=== PATIENT | male | born 1950 | race Caucasian/White ===

== ENCOUNTER 2021-12-11 13:24 | Inpatient (IN) | payer OTHER, MEDICAID, SELFPAY ==
[2021-12-11] VITALS (10 sets, daily range): BP systolic 88–123; BP diastolic 49–80; PULSE 86–94; RESP 14–22; TEMP 36.3–36.8; O2SAT 95–100; BMI 34.3
--- NOTE | ~2021-12-11 | XR_ITS ---
EXAMINATION: XR chest 2V Exam Date/Time: 12/11/2021 14:10 CDT HISTORY: dyspnea GARBLED SPEECH WEAKNESS NOTED Comparison: None available. RESULT: Lateral view is limited by degree of inspiration. Lines, tubes, and devices: None. Lungs and pleura: Linear opacities in the left basilar lung. Posterior costophrenic angle blunting. Cardiomediastinal silhouette: Stable. Other: No acute osseous or upper abdominal finding. IMPRESSION: No acute cardiopulmonary process. Small possibly bilateral pleural effusions. Left basilar scar/atele ctasis. Reviewed, dictated and finalized at location K. IMPRESSION: No acute cardiopulmonary process. Small possibly bilateral pleural effusions. L eft basilar scar/atelectasis.
--- NOTE | ~2021-12-11 | CT_ITS ---
EXAMINATION: CTA chest PE protocol DATE: 12/11/2021 17:12 INDICATION: elevated dimer, dyspnea TECHNIQUE: Computed tomography angiography (CTA) of the chest was performed with 100 mL Omnipaque-350 intravenous contrast timed to evaluate the pulmonary arteries. Coronal maximum intensity projection 3D-reconstructions were created by the technologist. The dose-length product (DLP) was 951.47 mGy-cm. Automated exposure control and iterative reconstruction technique were employed. COMPARISON: X-ray chest 12/11/2021. FINDINGS: Lung parenchyma and airways: Minimal bibasilar atelectasis and scarring, greater in the left lower finn ng. Calcified left lower lobe granuloma.. Pleura: Small bilateral pleural fluid collections. Thoracic inlet, axillae and chest wall: Unremarkable. Thoracic aorta: Mild ascending aortic ectasia. Moderate arch calcification. Mediastinum: Normal. Heart and pericardium: Moderate-large volume pericardial fluid collection with peripheral enhancement . The heart is narrowed and somewhat cone shaped, with septal bowing, suggesting physiologic effects from the pericardial fluid and inflammation. Coronary artery calcifications: Heavy. Upper abdomen: Cholelithiasis. Dilated gallbladder.. Bones: No acute osseous finding. Pulmonary arteries: Study quality: Adequate. No pulmonary emboli detected. IMPRESSION: No CT evidence of acute pulmonary embolus. Mild-moderate volume pericardial effusion, with pericardit is and possible tamponade physiology. Small bilateral pleural effusions. Gallbladder hydrops, of doub tful clinical significance unless accompanied by right upper quadrant pain and/or abnormal labs. Results reported telephonically to Dr. Franks by Dr. Rubio at 5:36 PM on 12/11/2021. Reviewed, dictated and finalized at location K. IMPRESSION: No CT evidence of acute pulmonary embolus. Mild-moderate volume pericardial eff usion, with pericarditis and possible tamponade physiology. Small bilateral ple ural effusions. Gallbladder hydrops, of doubtful clinical significance unless a ccompanied by right upper quadrant pain and/or abnormal labs. Results reported telephonically to Dr. Franks by Dr. Rubio at 5:36 PM on 12/11.
--- NOTE | ~2021-12-11 | US_ITS ---
EXAMINATION: US renal BI DATE: 12/13/2021 15:25 INDICATION: Urinary retention. TECHNIQUE: Multiple ultrasound grayscale images of the kidneys were obtained. COMPARISON: Chest CT 12/11/2021 FINDINGS: The right kidney measures 11.5 x 5.3 x 4.5 cm. The left kidney measures 10.4 x 5.4 x 6.0 cm. The kidn eys demonstrate normal parenchymal echogenicity. There is no hydronephrosis. The bladder is decompres sed by a Mora catheter. IMPRESSION: 1. Normal kidneys. No hydronephrosis. Reviewed, dictated and finalized at location A.
--- NOTE | ~2021-12-11 | US_ITS ---
EXAMINATION: US venous doppler [facility] DATE: 12/12/2021 17:07 INDICATION: Chest pain. TECHNIQUE: Grayscale ultrasound images without and with compression and Doppler ultrasound images of the bilateral lower extremity veins were obtained. COMPARISON: None. FINDINGS: The visualized portions of right common femoral vein, profunda (deep) femoral vein, femoral vein, pop liteal vein, peroneal veins, posterior tibial veins, and greater saphenous vein outflow are patent. The visualized portions of left common femoral vein, profunda femoral vein, femoral vein, popliteal v ein, peroneal veins, posterior tibial veins, and greater saphenous vein outflow are patent. IMPRESSION: 1. No deep venous thrombosis. Reviewed, dictated and finalized at location A.
--- NOTE | 2021-12-11 13:28 | ED.SOB ---
HPI - SOB/Dyspnea General Chief Complaint: Recheck/Abnormal Lab/Rx Stated Complaint: Low O2 Time Seen by Provider: 12/11/21 13:28 Source: patient Mode of arrival: ambulatory Limitations: no limitations History of Present Illness HPI Narrative: The patient is a 71 yo male with a history of hypertension, head injury, acid reflux, presenting to the emergency department for evaluation of hypoxia. Patient is currently alert and oriented to person, place, and to time. The alfhome planning consultant salesperson was taking his vital signs and noted his oxygen saturations to be well, 88% on room air, thus the patient was placed on oxygen via nasal cannula and transported here for evaluation of this after the patient's family was notified. Patient currently has no acute complaints. He denies any chest pain, cough or shortness of breath. Denies abdominal pain, leg swelling or calf pain. Patient's vital signs were normal per EMS and he was able to maintain oxygen saturations at 98% on room air. Pt denies any current chest pain or dyspnea. He denies abdominal pain. Per daughter over the phone, states that patient contacted her stating he couldn't breathe this morning and was panicking, thus prompting him to have EMS transport him to this hospital for evaluation. Related Data Allergies Allergy/AdvReac Type Severity Reaction Status Date / Time prednisone Allergy Severe COMA FOR 1 Verified 08/31/16 15:05 YEAR Review of Systems Review of Systems: CONSTITUTIONAL: Denies fever CARDIOVASCULAR: Denies chest pain RESPIRATORY: Denies cough or dyspnea. GASTROINTESTINAL: Denies abdominal pain SKIN: Denies rash MUSCULOSKELETAL: Denies back pain NEUROLOGIC: Denies headache [facility] Family History Family History Father Family history of malignant neoplasm Mother Family history of heart disease in male family member before age 55 Hypertension Family history of cardiovascular disease Social History Social History Smoking status: Never smoker Second hand tobacco smoke exposure: Yes Alcohol intake: never Exam Narrative: GENERAL: Awake, alert, conversant HEAD: Normocephalic, atraumatic. EYES: PERRLA and EOMI. ENT: Nares clear, no rhinorrhea or epistaxis. Mucous membranes moist. NECK: Supple. CHEST: No respiratory distress, breathing even and non labored HEART: Regular rate, sinus rhythm ABDOMEN:Obese, Non distended, non tender EXTREMITIES: Chronic venous stasis changes, normal range of motion. No edema. SKIN: Warm, dry, no rash. NEURO:No focal deficits. Alert and oriented x3 Course Vital Signs Vital signs: Vital Signs Temperature 36.6 C 12/11/21 13:30 Pulse Rate 91 12/11/21 13:30 Respiratory Rate 17 12/11/21 13:30 Blood Pressure 114/67 12/11/21 13:30 Pulse Oximetry 98 12/11/21 13:30 Oxygen Delivery Room Air 12/11/21 13:30 Temperature 36.6 C 12/11/21 13:30 Pulse Rate 94 12/11/21 19:13 Respiratory Rate 14 12/11/21 19:13 Blood Pressure 108/67 12/11/21 19:13 Pulse Oximetry 98 12/11/21 19:13 Oxygen Delivery Room Air 12/11/21 13:30 MDM - SOB/Dyspnea MDM Narrative Medical decision making narrative: Patient presented for evaluation of episode of chest pain and hypoxia that is resolved at the time of assessment. Initial presentation physical exam findings are reassuring. Vital signs are stable. Is not hypoxic, tachycardic, hypotensive. No increased work of breathing. He is quite comfortable appearing. IV access obtained and labs are drawn. EKG without acute ischemic changes. Laboratory results are notable for a elevated troponin, elevated BNP, elevated D-dimer. Patient is mildly anemic with low hematocrit. No thrombocytopenia. No electrolyte derangement or acute kidney injury. CTA was performed which shows evidence of moderate to large pericardial effusion with concern for tampona
--- NOTE | 2021-12-11 13:29 | ECG_ITS ---
Measurements Intervals [place] Rate: 88 P: 52 [place]: 179 QRS: -3 QRSD: 115 T: -48 QT: 392 QTc: 475 Interpretive Statements SINUS RHYTHM LOW QRS VOLTAGE IN PRECORDIAL LEADS INFERIOR INFARCT, AGE INDETERMINATE BORDERLINE ST-T WAVE ABNORMALITY- ANTEROLATERAL LEADS BASELINE ARTIFACT- II, III, AVR, AVL, AVF ABNORMAL ECG NO PREVIOUS ECG AVAILABLE FOR COMPARISON Electronically Signed On 12-11-2021 14:27:03 CDT by Andrea Yanes D.O.
[2021-12-11 14:49] LABS: SARS-CoV-2 RNA PCR Negative
[2021-12-11 15:21] LABS: Anion Gap 13 mmol/L (8-16); Blood Urea Nitrogen 16 mg/dL (9-20); Calcium 8.9 mg/dL (8.4-10.2); Carbon Dioxide 26 mmol/L (22-30); Chloride 101 mmol/L (98-107); Estimated CRCL calculation 78 ml/min; Estimated Glomerular Filt Rate > 60; Glucose 92 mg/dL (65-110); Potassium 3.6 mmol/L (3.4-5.0); Sodium 140 mmol/L (137-145)
[2021-12-11 15:30] LABS: NT Pro B Type Natriuretic Pept 1620 pg/mL (5-100)
[2021-12-11 15:40] LABS: Troponin I 0.052 ng/mL (0.000-0.034)
[2021-12-11 15:53] LABS: D Dimer 6.67 ug/mL (<0.48)
[2021-12-11 16:06] LABS: Platelet Estimate Adequate (Adequate)
[2021-12-11 16:09] LABS: Anisocytosis 3+ (NORMAL)
--- NOTE | 2021-12-11 16:24 | PC.NURSE ---
multiple attempts for IV access without success.
--- NOTE | 2021-12-11 16:46 | PC.NURSE ---
Catherine LEA attempting IV access with ultrasound.
[2021-12-11 17:18] LABS: Troponin I 0.053 ng/mL (0.000-0.034)
[2021-12-11] MEDS: IBUPROFEN 600 MG TABLET PO (19:09)
[2021-12-11] MEDS: COLCHICINE 0.6 MG TABLET PO (19:10)
--- NOTE | 2021-12-11 19:25 | PCCCNOTE ---
Met with spouse at bedside per request of bedside RN. Spouse has paperwork for seeking guardianship, some is filled out and some she has to do but she isn't sure. She is requesting resources to help her, she got the paperwork from the law library but no one provided her with resources of what to do next. Provided spouse with legal/guardianship resource list and she expressed gratitude. Spouse also plans to set up a meeting with the SW at her husbands [facility].
--- NOTE | 2021-12-11 20:52 | PM.IMHP ---
H&P: HPI History of Present Illness Date/Time: 12/11/21 20:52 Chief Complaint: shortness of breath Narrative: This is a 71-year-old male with past medical history significant for coronary artery disease status post stent placement, myocardial infarction, type 2 diabetes mellitus dementia, he resides at a nursing patient was brought to the emergency room after he was found to have a saturation on of 88% on room air. Patient is unable to give any history due to his dementia. states that he has not been the same ever since he had his myocardial infarction and stent placement. History has been obtained from who is at bedside. preliminary workup in the emergency room was significant for CT of the chest was reported as: IMPRESSION: No CT evidence of acute pulmonary embolus. Mild-moderate volume pericardial effusion, with pericarditis and possible tamponade physiology. Small bilateral pleural effusions. Gallbladder hydrops, of doubtful clinical significance unless accompanied by right upper quadrant pain and/or abnormal labs. BNP 1620 troponins x3 [id number] Review of Systems Review of Systems: ROS unobtainable: Yes unobtainable due to mental status [facility] Family History Family History Father Family history of malignant neoplasm Mother Family history of heart disease in male family member before age 55 Hypertension Family history of cardiovascular disease Social History Social History Smoking status: Never smoker Second hand tobacco smoke exposure: Yes Alcohol intake: never Substance use: never Spiritual care concerns: No Meds Home Medications and Allergies Home Medications Medication Instructions Recorded Confirmed Type acetaminophen 325 mg chewable 650 mg PO Q6H PRN Pain, Mild 12/11/21 12/11/21 History tablet apixaban 5 mg (74 tabs) tablets in 5 mg PO BID 12/11/21 12/11/21 History a dose pack (Eliquis DVT-PE Treat 30D Start) aspirin 81 mg chewable tablet 81 mg PO DAILY 12/11/21 12/11/21 History atorvastatin 80 mg tablet 80 mg PO HS 12/11/21 12/11/21 History bupropion HCl 300 mg 24 hr tablet, 300 mg PO QAM 12/11/21 12/11/21 History extended release carvedilol 25 mg tablet 25 mg PO BID 12/11/21 12/11/21 History clopidogrel 75 mg tablet 75 mg PO DAILY 12/11/21 12/11/21 History cyclobenzaprine 5 mg tablet 5 mg PO TID 12/11/21 12/11/21 History diclofenac sodium 1 % topical gel 1 ea topical DAILY 12/11/21 12/11/21 History diflorasone 0.05 % topical cream 1 applic topical DAILY 12/11/21 12/11/21 History furosemide 20 mg tablet 20 mg PO DAILY 12/11/21 12/11/21 History gabapentin 100 mg capsule 100 mg PO Q8H 12/11/21 12/11/21 History insulin glargine 100 unit/mL (3 5 unit subcut HS 12/11/21 12/11/21 History mL) subcutaneous pen losartan 25 mg tablet 25 mg PO DAILY 12/11/21 12/11/21 History oxycodone 5 mg tablet 5 mg PO BID PRN Moderate Pain 12/11/21 12/11/21 History (Scale Score 5-6) pantoprazole 40 mg tablet,delayed 40 mg PO BID 12/11/21 12/11/21 History release polyethylene glycol 3350 17 17 g PO DAILY 12/11/21 12/11/21 History gram/dose oral powder quetiapine 25 mg tablet (Seroquel) 12.5 mg PO BID 12/11/21 12/11/21 History sitagliptin 50 mg tablet (Januvia) 50 mg PO DAILY 12/11/21 12/11/21 History venlafaxine 75 mg tablet 75 mg PO DAILY 12/11/21 12/11/21 History Allergies Allergy/AdvReac Type Severity Reaction Status Date / Time prednisone Allergy Severe COMA FOR 1 Verified 08/31/16 15:05 YEAR Vital Signs Vital Signs - 24 hr 12/11/21 13:30 12/11/21 15:37 12/11/21 15:37 Temperature 97.8 F Pulse Rate 91 92 Respiratory Rate 17 16 16 Blood Pressure 114/67 114/80 Pulse Oximetry 98 98 98 Oxygen Delivery Room Air 12/11/21 16:56 12/11/21 19:13 12/11/21 20:00 Temperature 97.5 F L Pulse Rate 92 94 93 Respiratory Rate 16 14 18 [place]oo
--- NOTE | 2021-12-11 22:31 | ADMGEN ---
This patient, Juan Pablo Almaraz, was admitted to IMU Room 205-01. Patient/family oriented to hospital policies and general routines including ID bracelet, bed and alarms, visiting hours, pain management, procedures, bathroom and other care routines, personal items, smoking policy, room service/diet, and visiting hours. Information on how to activate the Rapid Response Team has been discussed. Patient/Family are encouraged to report perceived risks to care and to ask questions if they do not understand what they are told or what they should do.
[2021-12-12] VITALS (17 sets, daily range): BP systolic 102–129; BP diastolic 53–62; PULSE 79–100; RESP 16–22; TEMP 36.2–36.6; O2SAT 95–100
--- NOTE | 2021-12-12 | ECHO_ITS ---
Patient Info Name: Juan Pablo Almaraz Age: 71 years : 1950 Gender: Male Ht: 69 in Wt: 239 lbs BSA: 2.34 m2 HR: 83 bpm BP: 110 / 58 mmHg Heart Rhythm: Sinus Rhythm Exam Date: 12/12/2021 8:54 AM Exam Location: [facility] Pulmonary Patient Status: Inpatient Admit Date: 12/11/2021 Staff Ordering Physician: Tanya Franks MD Senior Financial: Nicko Cuba, JUNIOR, RT Attending Provider: Dimitri Robertson MD Referring Physician: [facility] ; Exam Type: CA echo dop color flow w con Study Info Indications I30.0 - Acute nonspecific idiopathic pericarditis Complete two-dimensional, color flow and Doppler transthoracic echocardiogram is performed with contrast to opacify the left ventricle and to improve the deliniation of the left ventricle endocardial borders. Summary 1. Left ventricular systolic function is lowr limits of normal, estimated at 50-55%. Technically difficult study with limited views despite definity echo contrast enhancement. Suspicion for mild apical septal hypokinesis. 2. Left ventricular chamber dimension is normal. 3. There is mildly increased left ventricular wall thickness. 4. The left ventricular diastolic function is grade I diastolic dysfunction. 5. Normal inferior vena cava with >50% collapse upon inspiration consistent with normal right atrial pressure, 5 mmHg. 6. There is a small to moderate circumferential pericardial effusion measures 0.9-1.6 cm with fibrinous material within the pericardial space. No echocardiographic evidence for tamponade physiology nor with mitral or tricuspid inflow velocity respiratory variation. Left Ventricle Left ventricular chamber dimension is normal. Left ventricular systolic function is lowr limits of normal, estimated at 50-55%. Technically difficult study with limited views despite definity echo contrast enhancement. Suspicion for mild apical septal hypokinesis. There is mildly increased left ventricular wall thickness. The left ventricular diastolic function is grade I diastolic dysfunction. Right Ventricle Right ventricular chamber dimension is normal. Right ventricular systolic function is normal. Left Atria Left atrial chamber dimension is normal. Right Atria Right atrial chamber dimension is normal. Aortic Valve The aortic valve is not well visualized. There is no aortic valve stenosis. There is no aortic valve regurgitation. Pulmonic Valve The pulmonic valve is not well visualized. Mitral Valve The mitral valve has not well visualized. There is no mitral valve regurgitation. The mitral valve annulus is moderately calcified. Tricuspid Valve The tricuspid valve leaflets are not well visualized. There is trace tricuspid valve regurgitation. No pulmonary hypertension, estimated pulmonary arterial systolic pressure is 24 mmHg. Pericardium/Pleural The pericardium appears normal. There is a small to moderate circumferential pericardial effusion measures 0.9-1.6 cm with fibrinous material within the pericardial space. No echocardiographic evidence for tamponade physiology nor with mitral or tricuspid inflow velocity respiratory variation. Inferior Vena Cava Normal inferior vena cava with >50% collapse upon inspiration consistent with normal right atrial pressure, 5 mmHg. Aorta The aortic root size at the sinus of Valsalva is normal. There is mild aortic atherosclerosis. Left Ventricular Outflow Tract Name
[2021-12-12 02:12] LABS: Troponin I 0.057 ng/mL (0.000-0.034)
[2021-12-12] MEDS: COLCHICINE 0.6 MG TABLET PO (06:46)
[2021-12-12] MEDS: IBUPROFEN 600 MG TABLET PO (06:46)
[2021-12-12] MEDS: GABAPENTIN 100 MG CAPSULE PO ×3 (06:46→20:39)
--- NOTE | 2021-12-12 08:26 | PM.CNCAR ---
History of Present Illness History of Present Illness Consult date/time: 12/12/21 08:26 Requesting physician: Tanya Franks MD Consult reason: chest pain and Other (pericardial effusion) Reason For Visit: pericarditis, peridcardial effusion PMFSH Family History Family History Father Family history of malignant neoplasm Mother Family history of heart disease in male family member before age 55 Hypertension Family history of cardiovascular disease Social History Social History Smoking status: Never smoker Second hand tobacco smoke exposure: Yes Alcohol intake: never Substance use: never Spiritual care concerns: No Meds Home Medications and Allergies Home Medications Medication Instructions Recorded Confirmed Type acetaminophen 325 mg chewable 650 mg PO Q6H PRN Pain, Mild 12/11/21 12/11/21 History tablet apixaban 5 mg (74 tabs) tablets in 5 mg PO BID 12/11/21 12/11/21 History a dose pack ([employer] DVT-PE Treat 30D Start) aspirin 81 mg chewable tablet 81 mg PO DAILY 12/11/21 12/11/21 History atorvastatin 80 mg tablet 80 mg PO HS 12/11/21 12/11/21 History bupropion HCl 300 mg 24 hr tablet, 300 mg PO QAM 12/11/21 12/11/21 History extended release carvedilol 25 mg tablet 25 mg PO BID 12/11/21 12/11/21 History clopidogrel 75 mg tablet 75 mg PO DAILY 12/11/21 12/11/21 History cyclobenzaprine 5 mg tablet 5 mg PO TID 12/11/21 12/11/21 History diclofenac sodium 1 % topical gel 1 ea topical DAILY 12/11/21 12/11/21 History diflorasone 0.05 % topical cream 1 applic topical DAILY 12/11/21 12/11/21 History furosemide 20 mg tablet 20 mg PO DAILY 12/11/21 12/11/21 History gabapentin 100 mg capsule 100 mg PO Q8H 12/11/21 12/11/21 History insulin glargine 100 unit/mL (3 5 unit subcut HS 12/11/21 12/11/21 History mL) subcutaneous pen losartan 25 mg tablet 25 mg PO DAILY 12/11/21 12/11/21 History oxycodone 5 mg tablet 5 mg PO BID PRN Moderate Pain 12/11/21 12/11/21 History (Scale Score 5-6) pantoprazole 40 mg tablet,delayed 40 mg PO BID 12/11/21 12/11/21 History release polyethylene glycol 3350 17 17 g PO DAILY 12/11/21 12/11/21 History gram/dose oral powder quetiapine 25 mg tablet (Seroquel) 12.5 mg PO BID 12/11/21 12/11/21 History sitagliptin 50 mg tablet (Januvia) 50 mg PO DAILY 12/11/21 12/11/21 History venlafaxine 75 mg tablet 75 mg PO DAILY 12/11/21 12/11/21 History Allergies Allergy/AdvReac Type Severity Reaction Status Date / Time prednisone Allergy Severe COMA FOR 1 Verified 08/31/16 15:05 YEAR Vital Signs Vital Signs - 24 hr 12/11/21 13:30 12/11/21 15:37 12/11/21 15:37 Temperature 36.6 C Pulse Rate 91 92 Respiratory Rate 17 16 16 Blood Pressure 114/67 114/80 Pulse Oximetry 98 98 98 Oxygen Delivery Room Air 12/11/21 16:56 12/11/21 19:13 12/11/21 20:00 Temperature 36.4 C L Pulse Rate 92 94 93 Respiratory Rate 16 14 18 Blood Pressure 123/72 108/67 109/58 L Pulse Oximetry 100 98 97 Oxygen Delivery 12/11/21 21:00 12/11/21 22:10 12/11/21 22:20 Temperature 36.8 C 36.3 C L 36.8 C Pulse Rate 90 90 93 Respiratory Rate 16 16 22 H Blood Pressure 101/64 102/68 113/53 L Pulse Oximetry 100 96 96 Oxygen Delivery 12/11/21 23:37 12/11/21 23:54 12/12/21 00:00 Temperature 36.6 C Pulse Rate 86 79 Respiratory Rate 18 Blood Pressure 88/49 L 98/51 L Pulse Oximetry 95 Oxygen Delivery 12/12/21 00:53 12/12/21 02:00 12/12/21 04:00 Temperature Pulse Rate 79 88 82 Respiratory Rate 18 Blood Pressure Pulse Oximetry 95 Oxygen Delivery Room Air 12/12/21 04:00 12/12/21 04:00 12/12/21 06:00 Temperature 36.5 C Pulse Rate 88 83 82 Respiratory Rate 18 16 Blood Pressure 110/58 L Pulse Oximetry 95 97 Oxygen Delivery Room Air 12/12/21 07:53 Temperature 36.2 C L Pulse Rate 84 Respiratory Rate 22 H Blood P
[2021-12-12] MEDS: PERFLUTREN LIPID MICROSPHERES 1.5 ML VIAL DILUTED TO 10 ML TOTAL VOLUME IV PUSH (09:05)
--- NOTE | 2021-12-12 09:05 | IVDEFINITY ---
Prior to administration of IV Definity the patient was educated on the risks and benefits of the imaging enhancing agent including potential adverse side effects. The patient verbalized understanding. Allergies were verified. No exclusion criteria were identified and at least one of the following inclusion criteria were met: 1) physician request, 2) patient technically difficult to image (per the [employer]ocardi[employer] guidelines of two or more segments not discernable within the apical view), or 3) questionable left ventricular function. ?
--- NOTE | 2021-12-12 10:11 | PM.CNCAR ---
Assessment and Plan Assessment and plan (1) Pericardial effusion: Code(s): I31.3 - Pericardial effusion (noninflammatory) Status: Acute Assessment and Plan: Small to moderate circumferential pericardial effusion without tamponade physiology on echocardiogram. This is most likely extension from his complicated coronary intervention from 08/11/2021 where vessel dissection of the RCA was noted. He had been on anticoagulation including dual antiplatelet therapy subsequently but had concerns for upper GI bleed and was discharged from [facility] on DVT dosing enoxaparin. He was then started back on Eliquis 5 mg twice daily as snf facility in addition to aspirin and Plavix for the past month. He denies hemoptysis or other bleeding. His pericardial effusion is not acute and he is hemodynamically stable. Chest pain was atypical described as an indigestion lasting 30 minutes on 1 occasion without recurrence. His EKG or clinical picture highly suggestive of acute pericarditis. Follows heart sounds are quite distant no rubs are appreciated. Sedimentation rate is minimally elevated at 21. Given the fact he has bilateral DVT and at high risk for PE he should remain on systemic anticoagulation for now. Follow-up echocardiogram should be obtained within the next 2 weeks as an outpatient to ensure stability. He apparently has been hemodynamically stable on above therapy but I do not see clinical evidence for pericarditis at this time and given the risk for exacerbation of GI and pericardial bleeding given his history would not recommend continuation of ibuprofen and colchicine in addition to aspirin, clopidogrel, and apixaban. Therefore, will discontinue ibuprofen and colchicine as well as aspirin in deference to clopidogrel and apixaban. Repeat lower extremity venous Doppler. If DVTs have resolved a consider discontinuation of apixaban with DVT prophylaxis regimen. (2) Elevated troponin: Code(s): R77.8 - Other specified abnormalities of plasma proteins Status: Acute Assessment and Plan: Minimally elevated, flat curve not consistent with acute coronary syndrome and/or plaque rupture. No acute ischemic EKG changes. Clinical picture is not consistent with pericarditis at this time so will discontinue 3 Proventil and colchicine and monitor clinically. If recurrent chest pain office therapy further recommendation to follow as appropriate. Difficult balance between risk and benefit with bleeding. Repeat ECG in a.m.. GI prophylaxis with pantoprazole 40 mg p.o. b.i.d. (3) Coronary artery disease: Code(s): I25.10 - Atherosclerotic heart disease of [place] coronary artery without angina pectoris Status: Acute Assessment and Plan: As above Patient underwent 3.0 x 8 mm 3.0 x 12 mm resolute drug-eluting stent and 3.0 x 40 mm drug-eluting stent throughout the RCA 08/11/21. Therefore, he must remain on antiplatelet therapy. Given concomitant systemic anticoagulation would recommend clopidogrel if apixaban will be continued with discontinuation of aspirin at this time. However, his apixaban may be discontinued will continue dual antiplatelet therapy. (4) Essential hypertension: Code(s): I10 - Essential (primary) hypertension Status: Acute Assessment and Plan: BP fairly stable overall. Heart rate controlled. Hold off on Lasix for now. Reduce losartan to 12.5mg daily. (5) DVT (deep venous thrombosis): Code(s): I82.409 - Acute embolism and thrombosis of unspecified deep veins of unspecified lower extremity Status: Acute Assessment and Plan: As above. Repeat lower extremity venous Doppler and if DVT resolved may consider discontinuation of apixaban in favor of DVT prophylaxis. Sister stable wanted to call on the scattered couple weeks as (6) PAD (peripheral artery disease): Code(s): I73.9 - Peripheral vascular disease, unspecified Status: Acute Assess
[2021-12-12 10:58] LABS: Erythrocyte Sedimentation Rate 21 mm/hr (0-20)
--- NOTE | 2021-12-12 10:58 | PM.IMPN ---
Progress Note: A&P Assessment and Plan (1) Effusion, pericardium: Code(s): I31.3 - Pericardial effusion (noninflammatory) Status: Acute Assessment and Plan: admit to IMU started on colchicine and ibuprofen cardiology consulted (2) Dyspnea: Code(s): R06.00 - Dyspnea, unspecified Status: Acute Assessment and Plan: likely secondary to pericardial effusion gentle diuresis (3) Elevated troponin: Code(s): R77.8 - Other specified abnormalities of plasma proteins Status: Acute Assessment and Plan: likely secondary to pericarditis (4) Pericarditis: Code(s): I31.9 - Disease of pericardium, unspecified Status: Acute Assessment and Plan: continue colchicine and ibuprofen (5) Neuropathy: Code(s): G62.9 - Polyneuropathy, unspecified Status: Acute Assessment and Plan: continue home meds (6) Essential hypertension: Code(s): I10 - Essential (primary) hypertension Status: Acute Assessment and Plan: continue home meds (7) Coronary artery disease: Code(s): I25.10 - Atherosclerotic heart disease of [place] coronary artery without angina pectoris Status: Acute Assessment and Plan: continue home meds continue to monitor EKG with no acute changes Subjective Date/time seen: 12/12/21 10:58 no complaints Exam Const: General: comfortable, no acute distress, well developed, alert and awake Nutritional Appearance: average body habitus Orientation/consciousness: oriented to person HENMT: Head: normal to inspection, normocephalic and atraumatic Ears: hearing grossly normal bilaterally Face and sinus: normal facial exam Eyes: General: appearance normal, both eyes and all related structures Pupils: Equal, round and reactive pupils present EOM: EOMs intact bilaterally Neck: Neck: full ROM, no lymphadenopathy and no JVD Thyroid: thyroid normal Lymphatic: no lymphadenopathy noted Resp: Effort & Inspection: normal respiratory effort and able to speak in complete sentences Auscultation: clear to auscultation bilaterally Cardio: Jugular venous distension: no JVD Rate: regular rate Rhythm: regular rhythm Heart sounds: S1 normal heart sound present, S2 normal heart sound present, no gallops, no murmurs, no rubs and Other heart sounds present ( Low tone and intensity) GI: Inspection: normal to inspection : General: Yes deferred Skin: Rashes: no rashes Wounds: no wounds Other: generalized pallor Neuro: General: oriented to person, CN's II-XI intact bilaterally and Unable to assess gait Cranial nerves: Yes CN's II-XII intact bilaterally and Yes Equal, round and reactive pupils present Cognition (Neuro): abnormal cognition ( confused) Speech: normal speech Gait exam (Neuro): Unable to assess gait Motor exam (neuro): 5/5 motor strength present throughout Extrem: General: normal to inspection, full ROM, no joint enlargement and no pedal edema Objective Data Vital Signs Vital Signs: Vital Signs - 24 hr 12/11/21 13:30 12/11/21 15:37 12/11/21 15:37 Temperature 97.8 F Pulse Rate 91 92 Respiratory Rate 17 16 16 Blood Pressure 114/67 114/80 Pulse Oximetry 98 98 98 Oxygen Delivery Room Air 12/11/21 16:56 12/11/21 19:13 12/11/21 20:00 Temperature 97.5 F L Pulse Rate 92 94 93 Respiratory Rate 16 14 18 Blood Pressure 123/72 108/67 109/58 L Pulse Oximetry 100 98 97 Oxygen Delivery 12/11/21 21:00 12/11/21 22:10 12/11/21 22:20 Temperature 98.2 F 97.3 F L 98.2 F Pulse Rate 90 90 93 Respiratory Rate 16 16 22 H Blood Pressure 101/64 102/68 113/53 L Pulse Oximetry 100 96 96 Oxygen Delivery 12/11/21 23:37 12/11/21 23:54 12/12/21 00:00 Temperature 97.8 F Pulse Rate 86 79 Respiratory Rate 18 Blood Pressure 88/49 L 98/51 L Pulse Oximetry 95 Oxygen Delivery 12/12/21 00:53 12/12/21 02:00 12/12/21 04:00 Temperature Pulse Rate 79 88 82
[2021-12-12 11:04] LABS: Thyroid Stimulating Hormone 0.375 uIU/mL (0.465-4.680)
[2021-12-12] MEDS: APIXABAN 5 MG TABLET PO ×2 (13:08→17:49)
[2021-12-12] MEDS: carvediloL 25 MG TABLET PO ×2 (13:09→20:39)
[2021-12-12] MEDS: ASPIRIN 81 MG CHEWABLE TABLET PO (13:09)
[2021-12-12] MEDS: CLOPIDOGREL BISULFATE 75 MG TABLET PO (13:09)
[2021-12-12] MEDS: buPROPion HCL XL (24 HR) 150 MG TABCR 300 MG PO (13:09)
[2021-12-12] MEDS: CYCLOBENZAPRINE HCL 5 MG TABLET PO ×2 (13:10→17:49)
[2021-12-12] MEDS: LOSARTAN POTASSIUM 25 MG TABLET PO (13:10)
[2021-12-12] MEDS: QUEtiapine FUMARATE 12.5 MG TABLET PO ×2 (13:10→17:49)
[2021-12-12] MEDS: PANTOPRAZOLE 40 MG TABLET PO ×2 (13:10→17:49)
[2021-12-12] MEDS: DICLOFENAC SODIUM 1% 100 GM GEL (*BKC) 1 APPLIC TOPICAL (13:10)
[2021-12-12] MEDS: VENLAFAXINE HCL 75 MG TABLET PO (13:11)
[2021-12-12 20:38] LABS: Glucose Point of Care 164 mg/dl (65-105)
[2021-12-12] MEDS: INSULIN GLARGINE (*BKC) 100 UNITS/ML SUB-Q (20:39)
[2021-12-12] MEDS: ATORVASTATIN 40 MG TABLET 80 MG PO (20:39)
[2021-12-13] VITALS (17 sets, daily range): BP systolic 93–126; BP diastolic 53–90; PULSE 80–89; RESP 16–20; TEMP 36.1–36.7; O2SAT 83–100
[2021-12-13] MEDS: GABAPENTIN 100 MG CAPSULE PO ×3 (06:01→21:04)
[2021-12-13] MEDS: QUEtiapine FUMARATE 12.5 MG TABLET PO ×2 (09:22→17:20)
[2021-12-13] MEDS: VENLAFAXINE HCL 75 MG TABLET PO (09:22)
[2021-12-13] MEDS: APIXABAN 5 MG TABLET PO (09:22)
[2021-12-13] MEDS: buPROPion HCL XL (24 HR) 150 MG TABCR 300 MG PO (09:22)
[2021-12-13] MEDS: PANTOPRAZOLE 40 MG TABLET PO ×2 (09:22→17:20)
[2021-12-13] MEDS: LOSARTAN POTASSIUM 25 MG TABLET PO (09:22)
[2021-12-13] MEDS: CLOPIDOGREL BISULFATE 75 MG TABLET PO (09:22)
[2021-12-13] MEDS: carvediloL 25 MG TABLET PO ×2 (09:22→21:04)
[2021-12-13] MEDS: CYCLOBENZAPRINE HCL 5 MG TABLET PO ×3 (09:22→17:20)
[2021-12-13] MEDS: DICLOFENAC SODIUM 1% 100 GM GEL (*BKC) 1 APPLIC TOPICAL (09:23)
[2021-12-13 11:25] LABS: Anion Gap 10 mmol/L (8-16); Blood Urea Nitrogen 11 mg/dL (9-20); Calcium 8.5 mg/dL (8.4-10.2); Carbon Dioxide 28 mmol/L (22-30); Chloride 102 mmol/L (98-107); Estimated CRCL calculation 90 ml/min; Estimated Glomerular Filt Rate > 60; Glucose 112 mg/dL (65-110); Potassium 3.1 mmol/L (3.4-5.0); Sodium 140 mmol/L (137-145)
[2021-12-13] MEDS: oxyCODONE HCL (*CRX) 5 MG TAB IR PO (13:08)
[2021-12-13 13:20] LABS: Hematocrit 32.2 % (42.0-52.0); Hemoglobin 10.2 g/dL (14.0-18.0); Mean Corpuscular HGB Conc 31.7 g/dl (32-36); Mean Corpuscular Volume 85.2 fl (80-100); Platelet Count Result 309 k/mm3 (150-375); Red Blood Count 3.78 M/mm3 (4.6-6.20); Red Cell Distribution Width 16.3 % (11.5-14.5); White Blood Count 9.1 K/mm3 (4.5-10.0)
[2021-12-13 14:06] LABS: Hemoglobin 10.7 g/dL (14.0-18.0); Red Blood Count 4.02 M/mm3 (4.6-6.20); White Blood Count 8.6 K/mm3 (4.5-10.0)
[2021-12-13 14:10] LABS: Hematocrit 35.3 % (42.0-52.0); Mean Corpuscular HGB Conc 30.3 g/dl (32-36); Mean Corpuscular Hemoglobin 26.6 pg (26-34); Mean Corpuscular Volume 87.8 fl (80-100); Neutrophils Percent Auto 66.6 % (45.5-73.1); Nucleated Red Blood Cells Perc 0.3 % (0.0-0.2); Platelet Count Result 298 k/mm3 (150-375); Red Cell Distribution Width 16.2 % (11.5-14.5)
[2021-12-13 14:11] LABS: Basophils Percent Auto 0.3 % (0.2-1.2); Eosinophils Absolute Auto 0.2 K/mm3 (0-0.3); Eosinophils Percent Auto 2.8 % (0-4.4); Immature Granulocyte Absolute 0.09 K/mm3 (0.00-0.031); Lymphocytes Absolute Auto 1.47 K/mm3 (0.9-3.2); Lymphocytes Percent Auto 17.1 % (18.3-44.2); Monocytes Absolute Auto 1.1 K/mm3 (0.1-0.6); Monocytes Percent Auto 12.2 % (2.6-8.5); Neutrophils Absolute Auto 5.7 K/mm3 (1.3-6.7)
--- NOTE | 2021-12-13 15:42 | PM.PNCARD ---
Progress Note: A&P Assessment and Plan (1) Pericardial effusion: Code(s): I31.3 - Pericardial effusion (noninflammatory) Status: Acute Assessment and Plan: Small to moderate circumferential pericardial effusion without tamponade physiology on echocardiogram. This is most likely extension from his complicated coronary intervention from 08/11/2021 where vessel dissection of the RCA was noted. He had been on anticoagulation including dual antiplatelet therapy subsequently but had concerns for upper GI bleed and was discharged from [facility] on DVT dosing enoxaparin. He was then started back on Eliquis 5 mg twice daily as longterm facility in addition to aspirin and Plavix for the past month. He denies hemoptysis or other bleeding. His pericardial effusion is not acute and he is hemodynamically stable. Chest pain was atypical described as an indigestion lasting 30 minutes on 1 occasion without recurrence. His EKG or clinical picture highly suggestive of acute pericarditis. Follows heart sounds are quite distant no rubs are appreciated. Sedimentation rate is minimally elevated at 21. He has been hemodynamically stable on above therapy but I do not see clinical evidence for pericarditis at this time and given the risk for exacerbation of GI and pericardial bleeding given his history would not recommend continuation of ibuprofen and colchicine in addition to aspirin, clopidogrel, and apixaban. Discontinued ibuprofen and colchicine. Repeat lower extremity venous Doppler revealed resolution of bilateral DVTs. May consider discontinuation of apixaban and resume aspirin in conjunction with clopidogrel. Recommend DVT prophylaxis upon discharge such as SCDs are subcutaneous enoxaparin. Defer to hospitalist service in this regard. Will set up for echocardiogram as an outpatient in the next 2 weeks. Stable for discharge from cardiac perspective. (2) Elevated troponin: Code(s): R77.8 - Other specified abnormalities of plasma proteins Status: Acute Assessment and Plan: Minimally elevated, flat curve not consistent with acute coronary syndrome and/or plaque rupture. No acute ischemic EKG changes. Clinical picture is not consistent with pericarditis. GI prophylaxis with pantoprazole 40 mg p.o. b.i.d. (3) Coronary artery disease: Code(s): I25.10 - Atherosclerotic heart disease of [place] coronary artery without angina pectoris Status: Acute Assessment and Plan: As above Patient underwent 3.0 x 8 mm 3.0 x 12 mm resolute drug-eluting stent and 3.0 x 40 mm drug-eluting stent throughout the RCA 08/11/21. Therefore, he must remain on antiplatelet therapy. Given concomitant systemic anticoagulation would recommend clopidogrel if apixaban will be continued with discontinuation of aspirin at this time. However, his apixaban may be discontinued will continue dual antiplatelet therapy. (4) Essential hypertension: Code(s): I10 - Essential (primary) hypertension Status: Acute Assessment and Plan: BP fairly stable overall. Heart rate controlled. Hold off on Lasix for now. Reduce losartan to 12.5mg daily. (5) DVT (deep venous thrombosis): Code(s): I82.409 - Acute embolism and thrombosis of unspecified deep veins of unspecified lower extremity Status: Acute Assessment and Plan: As above. Repeat lower extremity venous Doppler negative for DVT bilaterally. May discontinue apixaban as above. (6) PAD (peripheral artery disease): Code(s): I73.9 - Peripheral vascular disease, unspecified Status: Acute Assessment and Plan: Asymptomatic, but at least moderate peripheral arterial disease below the ankle but unable to perform MICHELE due to DVT bilaterally at that time. (7) Morbid obesity due to excess calories: Code(s): E66.01 - Morbid (severe) obesity due to excess calories Status: Acute Assessment and Plan: lifestyle modification. PT OT.
--- NOTE | 2021-12-13 15:46 | PM.IMPN ---
Subjective Date/time seen: 12/13/21 15:46 Objective Data Vital Signs Vital Signs: Vital Signs - 24 hr 12/12/21 16:00 12/12/21 16:00 12/12/21 18:08 Temperature 97.7 F Pulse Rate 81 85 Respiratory Rate 20 Blood Pressure 107/54 L Pulse Oximetry 97 Oxygen Delivery Room Air 12/12/21 18:00 12/12/21 20:39 12/12/21 20:00 Temperature 97.9 F Pulse Rate 85 85 84 Respiratory Rate 18 Blood Pressure 129/58 L Pulse Oximetry 100 Oxygen Delivery 12/12/21 20:35 12/12/21 20:00 12/12/21 22:00 Temperature Pulse Rate 80 88 Respiratory Rate Blood Pressure Pulse Oximetry Oxygen Delivery Room Air 12/13/21 00:00 12/13/21 00:00 12/13/21 00:00 Temperature 97.6 F Pulse Rate 86 83 Respiratory Rate 16 Blood Pressure 101/53 L Pulse Oximetry 98 Oxygen Delivery Room Air 12/13/21 02:00 12/13/21 04:00 12/13/21 04:00 Temperature Pulse Rate 89 80 Respiratory Rate Blood Pressure Pulse Oximetry Oxygen Delivery Room Air 12/13/21 06:00 12/13/21 04:00 12/13/21 08:00 Temperature 98.0 F Pulse Rate 83 82 82 Respiratory Rate 20 Blood Pressure 97/64 L Pulse Oximetry 98 Oxygen Delivery 12/13/21 08:10 12/13/21 08:00 12/13/21 09:00 Temperature 97.5 F L 97 F L Pulse Rate 83 81 Respiratory Rate 20 20 Blood Pressure 106/64 126/90 Pulse Oximetry 96 83 L Oxygen Delivery Room Air 12/13/21 10:00 12/13/21 11:39 12/13/21 12:00 Temperature 97.1 F L Pulse Rate 83 87 Respiratory Rate 20 Blood Pressure 96/68 L Pulse Oximetry 97 Oxygen Delivery Room Air 12/13/21 12:00 12/13/21 14:00 Temperature Pulse Rate 87 85 Respiratory Rate Blood Pressure Pulse Oximetry Oxygen Delivery Intake/Output Intake/Output: Intake & Output 12/10/21 12/11/21 12/12/21 12/13/21 23:59 23:59 23:59 23:59 Intake Total 1110 480 Output Total 100 350 Balance 1010 130 Meds/Results Medications: Active Medications Generic Name Dose Route Start Last Admin Trade Name Freq PRN Reason Stop Dose Admin Acetaminophen 650 mg 12/12/21 02:36 Acetaminophen 325 Mg Tablet PO Q6H PRN Pain Rated 1-3 Aspirin 81 mg 12/14/21 09:00 Aspirin 81 Mg Enteric Tablet PO QAM [facility] Atorvastatin Calcium 80 mg 12/12/21 21:00 12/12/21 20:39 Atorvastatin 40 Mg Tablet PO 80 mg HS MYA Administration Bupropion HCl 300 mg 12/12/21 09:00 12/13/21 09:22 Bupropion Hcl Xl (24 Hr) 150 Mg Tabcr PO 300 mg QAM [facility] Administration Carvedilol 25 mg 12/12/21 09:00 12/13/21 09:22 Carvedilol 25 Mg Tablet PO 25 mg Q12HR MYA Administration Clopidogrel Bisulfate 75 mg 12/12/21 09:00 12/13/21 09:22 Clopidogrel Bisulfate 75 Mg Tablet PO 75 mg DAILY MYA Administration Cyclobenzaprine HCl 5 mg 12/12/21 09:00 12/13/21 13:08 Cyclobenzaprine Hcl 5 Mg Tablet PO 5 mg TID [facility] Administration Diclofenac Sodium 1 applic 12/12/21 09:00 12/13/21 09:23 Diclofenac Sodium 1% 100 Gm Gel (*Bkc) TOPICAL 1 applic DAILY [facility] Administration Gabapentin 100 mg 12/12/21 06:00 12/13/21 13:08 Gabapentin 100 Mg Capsule PO 100 mg Q8H MYA Administration Insulin Glargine 5 units 12/12/21 21:00 12/12/21 20:39 Insulin Glargine (*Bkc) 100 Units/Ml SUB-Q 5 units HS [facility] Administration Losartan Potassium 25 mg 12/12/21 09:00 12/13/21 09:22 Losartan Potassium 25 Mg Tablet PO 25 mg DAILY MYA Administration Ondansetron HCl 4 mg 12/11/21 19:13 Ondansetron Inj 4 Mg/2 Ml Vial IV PUSH Q4H PRN Nausea Oxycodone HCl 5 mg 12/12/21 02:36 12/13/21 13:08 Oxycodone Hcl (*Crx) 5 Mg Tab Ir PO 5 mg BID PRN Administration Pain Rated 4-6 Pantoprazole Sodium 40 mg 12/12/21 09:00 12/13/21 09:22 Pantoprazole 40 Mg Tablet PO 40 mg BID MYA Administration Polyethylene Glycol 17 gm 12/12/21 09:00 12/13/21 09:24 Polyethylene Glycol 3350 17 Gm Powd.Pack
--- NOTE | 2021-12-13 15:56 | PM.DS ---
DS: Summary Time Spent with Patient Time attestation: Total time spent providing and/or coordinating discharge services: DS: Data Data Completed and Pending Labs on day of discharge: Labs from last 24 hours 12/13/21 12/13/21 12/12/21 11:10 10:50 20:35 WBC 9.1 RBC 3.78 L Hgb 10.2 L Hct 32.2 L MCV 85.2 MCH 27.0 MCHC 31.7 L RDW 16.3 H Plt Count 309 MPV 10.0 Immature Gran % (Auto) Neut % (Auto) Lymph % (Auto) [place] % (Auto) Eos % (Auto) Baso % (Auto) Lymph # (Auto) [place] # (Auto) Eos # (Auto) Baso # (Auto) Abs Immat Gran (auto) Absolute Neuts (auto) Absolute Nucleated RBC Nucleated RBC % Platelet Estimate Anisocytosis Sodium 140 Potassium 3.1 L Chloride 102 Carbon Dioxide 28 Anion Gap 10 BUN 11 D Creatinine 0.80 Estim Creat Clear Calc 90 Estimated GFR > 60 Glucose 112 H POC Capillary Glucose 164 H Calcium 8.5 12/11/21 14:56 WBC 8.6 RBC 4.02 L Hgb 10.7 L Hct 35.3 L MCV 87.8 MCH 26.6 MCHC 30.3 L RDW 16.2 H Plt Count 298 MPV 10.0 Immature Gran % (Auto) 1.0 H Neut % (Auto) 66.6 Lymph % (Auto) 17.1 L [place] % (Auto) 12.2 H Eos % (Auto) 2.8 Baso % (Auto) 0.3 Lymph # (Auto) 1.47 [place] # (Auto) 1.1 H Eos # (Auto) 0.2 Baso # (Auto) 0.0 Abs Immat Gran (auto) 0.09 H Absolute Neuts (auto) 5.7 Absolute Nucleated RBC 0.0 Nucleated RBC % 0.3 H Platelet Estimate Adequate Anisocytosis 3+ Sodium Potassium Chloride Carbon Dioxide Anion Gap BUN Creatinine Estim Creat Clear Calc Estimated GFR Glucose POC Capillary Glucose Calcium Discharge Plan Discharge Attending physician on discharge: Clay Lerner Consulting providers: Faye Downs Discharging Clinician: Clay Lerner Patient Disposition: NH Half-Way/Asst Living Activity: as tolerated Diet: heart healthy Discharge Instructions: patient to follow-up with his primary care provider as soon as possible Patient Instructions: Antibiotic Form, Clopidogrel (By mouth), Apixaban (By mouth), Pericardial Effusion (DC), Dyspnea (DC), Safe Use of Anticoagulants (DC) Stand Alone Forms: General Discharge Information Follow-up/Referrals: Radha,Melania Ham MD [Primary Care Provider] - [facility] - Discharge Medications: New oxycodone 5 mg Tablet 5 mg PO BID PRN (Reason: Pain Rated 4-6) Qty: 12 0RF Continued atorvastatin 80 mg Tablet 80 mg PO HS carvedilol 25 mg Tablet 25 mg PO BID Rx Instructions: must administer with a meal/food clopidogrel 75 mg Tablet 75 mg PO DAILY aspirin [Aspirin Child] 81 mg Tablet,Chewable 81 mg PO DAILY cyclobenzaprine 5 mg Tablet 5 mg PO TID bupropion HCl 300 mg Tablet Extended Release 24 Hr 300 mg PO QAM acetaminophen 325 mg Tablet,Chewable 650 mg PO Q6H PRN (Reason: Pain, Mild) pantoprazole 40 mg Tablet,Delayed Release (Dr/Ec) 40 mg PO BID losartan 25 mg Tablet 25 mg PO DAILY polyethylene glycol 3350 17 gram/dose Powder 17 g PO DAILY insulin glargine 100 unit/mL (3 mL) Insulin Pen 5 unit SUBCUT HS venlafaxine 75 mg Tablet 75 mg PO DAILY quetiapine [Seroquel] 25 mg Tablet 12.5 mg PO BID diflorasone 0.05 % Cream 1 applic TOPICAL DAILY gabapentin 100 mg Capsule 100 mg PO Q8H oxycodone 5 mg Tablet 5 mg PO BID PRN (Reason: Moderate Pain (Scale Score 5-6)) Januvia 50 mg Tablet 50 mg PO DAILY diclofenac sodium 1 % Gel 1 ea TOPICAL DAILY Held furosemide 20 mg Tablet 20 mg PO DAILY Hold Instructions: until seen by his [facility] Ebony DVT-PE Treat 30D Start 5 mg (74 tabs) Tablets,Dose Pack 5 mg PO BID Hold Instructions: until seen by his [facility] Date of admission: 12/11/21 19:13 Primary Care Provider: Radha,Melania Ham Adm
--- NOTE | 2021-12-13 17:47 | PC.NURSE ---
On 12/13/21, the student, [Debbie [facility]EVES [facility] ], provided care and completed [employer] documentation on this patient. I have reviewed the student's documentation and agree with the findings.
[2021-12-13 19:13] LABS: EDCOVIDSCREEN Negative (Negative)
[2021-12-13] MEDS: ATORVASTATIN 40 MG TABLET 80 MG PO (21:04)
--- NOTE | 2021-12-13 22:13 | PC.NURSE ---
Notified pt's , Rachna, that pt is going to be transferred to room 342.
[2021-12-13] MEDS: INSULIN GLARGINE (*BKC) 100 UNITS/ML SUB-Q (22:23)
[2021-12-13 22:27] LABS: Glucose Point of Care 134 mg/dl (65-105)
--- NOTE | 2021-12-13 22:33 | PC.NURSE ---
Report called to LEONORA Oliva on .
--- NOTE | 2021-12-13 23:03 | PC.NURSE ---
This patient, Juan Pablo Almaraz, was transferred to [room 342 ] on 12/13/21 at 2245. Personal belongings sent with patient. Report given to [LEONORA Oliva ]. Appropriate documentation sent with patient.
[2021-12-14 00:23] VITALS: BP 97/55; PULSE 81; RESP 20; TEMP 36.6; O2SAT 94
[2021-12-14 04:36] VITALS: BP 113/59; PULSE 88; RESP 16; TEMP 36.4; O2SAT 96
[2021-12-14] MEDS: SODIUM CHLORIDE 0.9% IV 250 ML IV CONT (05:26)
[2021-12-14] MEDS: GABAPENTIN 100 MG CAPSULE PO (05:27)
[2021-12-14 05:53] LABS: Anion Gap 9 mmol/L (8-16); Blood Urea Nitrogen 14 mg/dL (9-20); Calcium 8.6 mg/dL (8.4-10.2); Carbon Dioxide 28 mmol/L (22-30); Chloride 102 mmol/L (98-107); Estimated CRCL calculation 63 ml/min; Estimated Glomerular Filt Rate > 60; Glucose 94 mg/dL (65-110); Sodium 139 mmol/L (137-145)
[2021-12-14] MEDS: CYCLOBENZAPRINE HCL 5 MG TABLET PO (09:13)
[2021-12-14] MEDS: CLOPIDOGREL BISULFATE 75 MG TABLET PO (09:13)
[2021-12-14] MEDS: LOSARTAN POTASSIUM 25 MG TABLET PO (09:13)
[2021-12-14] MEDS: QUEtiapine FUMARATE 12.5 MG TABLET PO (09:13)
[2021-12-14 09:15] VITALS: PULSE 72
[2021-12-14] MEDS: carvediloL 25 MG TABLET PO (09:15)
[2021-12-14] MEDS: buPROPion HCL XL (24 HR) 150 MG TABCR 300 MG PO (09:15)
[2021-12-14] MEDS: DICLOFENAC SODIUM 1% 100 GM GEL (*BKC) 1 APPLIC TOPICAL (09:15)
[2021-12-14] MEDS: ENOXAPARIN 40 MG/0.4 ML SYRINGE SUB-Q (09:18)
[2021-12-14] MEDS: ASPIRIN 81 MG ENTERIC TABLET PO (09:18)
[2021-12-14] MEDS: polyethylene glycoL 3350 17 GM POWD.PACK PO (09:18)
[2021-12-14] MEDS: VENLAFAXINE HCL 75 MG TABLET PO (09:18)
[2021-12-14] MEDS: PANTOPRAZOLE 40 MG TABLET PO (09:18)
[2021-12-14 09:22] LABS: Hemoglobin 10.6 g/dL (14.0-18.0)
[2021-12-14 09:23] LABS: Hematocrit 35.2 % (42.0-52.0)
[2021-12-14 09:40] LABS: Hematocrit 29.9 % (42.0-52.0); Hemoglobin 9.3 g/dL (14.0-18.0); Mean Corpuscular HGB Conc 31.1 g/dl (32-36); Mean Corpuscular Hemoglobin 26.6 pg (26-34); Mean Corpuscular Volume 85.7 fl (80-100); Mean Platelet Volume 9.8 fl (7.4-10.4); Platelet Count Result 273 k/mm3 (150-375); Red Blood Count 3.49 M/mm3 (4.6-6.20); Red Cell Distribution Width 16.4 % (11.5-14.5); White Blood Count 8.4 K/mm3 (4.5-10.0)
[2021-12-14] MEDS: POTASSIUM CHLORIDE 20 MEQ TABLET 40 MEQ PO (09:48)
--- NOTE | 2021-12-14 12:20 | PM.IMPN ---
Progress Note: A&P Assessment and Plan (1) Effusion, pericardium: Code(s): I31.3 - Pericardial effusion (noninflammatory) Status: Acute Assessment and Plan: HPI-This is a 71-year-old male with past medical history significant for coronary artery disease status post stent placement, myocardial infarction, type 2 diabetes mellitus dementia, he resides at a nursing patient was brought to the emergency room after he was found to have a saturation on of 88% on room air. Patient is unable to give any history due to his dementia.? states that he has not been the same ever since he had his myocardial infarction and stent placement. History has been obtained from who is at bedside. preliminary workup in the emergency room was significant for CT of the chest was reported as:No CT evidence of acute pulmonary embolus. Mild-moderate volume pericardial effusion, with pericarditis and possible tamponade physiology. Small bilateral pleural effusions. Gallbladder hydrops, of doubtful clinical significance unless accompanied by right upper quadrant pain and/or abnormal labs. Patient was seen by ostrich farmer after reviewing his echo, previous history and examination came to conclusion that patient symptoms are stemming from pericarditis and does not need any treatment with ibuprofen and colchicine? with increased risk of bleeding, repeat lower extremities Dopplor did not show any DVT, patient remains clinically stable. (2) Dyspnea: Code(s): R06.00 - Dyspnea, unspecified Status: Acute Assessment and Plan: likely secondary to pericardial effusion ?gentle diuresis (3) Elevated troponin: Code(s): R77.8 - Other specified abnormalities of plasma proteins Status: Acute Assessment and Plan: Most likely demand ischemia due to pericarditis (4) Pericarditis: Code(s): I31.9 - Disease of pericardium, unspecified Status: Acute Assessment and Plan: had been treated with colchicine and ibuprofen (5) Neuropathy: Code(s): G62.9 - Polyneuropathy, unspecified Status: Acute (6) Essential hypertension: Code(s): I10 - Essential (primary) hypertension Status: Acute Assessment and Plan: will continue home regimen and monitor (7) Coronary artery disease: Code(s): I25.10 - Atherosclerotic heart disease of [place] coronary artery without angina pectoris Status: Acute Subjective Date/time seen: 12/13/21 12:20 HPI-This is a 71-year-old male with past medical history significant for coronary artery disease status post stent placement, myocardial infarction, type 2 diabetes mellitus dementia, he resides at a nursing patient was brought to the emergency room after he was found to have a saturation on of 88% on room air. Patient is unable to give any history due to his dementia.? states that he has not been the same ever since he had his myocardial infarction and stent placement. History has been obtained from who is at bedside. preliminary workup in the emergency room was significant for CT of the chest was reported as:No CT evidence of acute pulmonary embolus. Mild-moderate volume pericardial effusion, with pericarditis and possible tamponade physiology. Small bilateral pleural effusions. Gallbladder hydrops, of doubtful clinical significance unless accompanied by right upper quadrant pain and/or abnormal labs. Patient was seen by ostrich farmer after reviewing his echo, previous history and examination came to conclusion that patient symptoms are stemming from pericarditis and does not need any treatment with ibuprofen and cholchin with increaed risk of bleeding, repeat lower extremities Dopplor did not show any DVT, patient remains clinically stable. Review of Systems Review of Systems: Patient denies bleeding, falls, trauma, headache, vision changes, hemoptysis, bright red blood per rectum, melena, edema, nausea, vomiting, rashes or hair skin or na
[2021-12-14 13:34] LABS: EDCOVIDSCREEN Negative (Negative)
--- NOTE | 2021-12-30 17:24 | PM.DS ---
DS: Admitting Diagnosis Discharge Date 12/14/21 Admitting Diagnosis Shortness of breath DS: Discharge Diagnosis Discharge Diagnosis (1) Effusion, pericardium: Code(s): I31.3 - Pericardial effusion (noninflammatory) Status: Acute Assessment and Plan: HPI-This is a 71-year-old male with past medical history significant for coronary artery disease status post stent placement, myocardial infarction, type 2 diabetes mellitus dementia, he resides at a nursing patient was brought to the emergency room after he was found to have a saturation on of 88% on room air. Patient is unable to give any history due to his dementia.? states that he has not been the same ever since he had his myocardial infarction and stent placement. History has been obtained from who is at bedside. preliminary workup in the emergency room was significant for CT of the chest was reported as:No CT evidence of acute pulmonary embolus. Mild-moderate volume pericardial effusion, with pericarditis and possible tamponade physiology. Small bilateral pleural effusions. Gallbladder hydrops, of doubtful clinical significance unless accompanied by right upper quadrant pain and/or abnormal labs. Patient was seen by medical massage therapist after reviewing his echo, previous history and examination came to conclusion that patient symptoms are stemming from pericarditis and does not need any treatment with ibuprofen and colchicine? with increased risk of bleeding, repeat lower extremities Dopplor did not show any DVT, patient remains clinically stable. (2) Dyspnea: Code(s): R06.00 - Dyspnea, unspecified Status: Acute Assessment and Plan: likely secondary to pericardial effusion ?gentle diuresis (3) Elevated troponin: Code(s): R77.8 - Other specified abnormalities of plasma proteins Status: Acute Assessment and Plan: Most likely demand ischemia due to pericarditis (4) Pericarditis: Code(s): I31.9 - Disease of pericardium, unspecified Status: Acute Assessment and Plan: had been treated with colchicine and ibuprofen (5) Neuropathy: Code(s): G62.9 - Polyneuropathy, unspecified Status: Acute (6) Essential hypertension: Code(s): I10 - Essential (primary) hypertension Status: Acute Assessment and Plan: will continue home regimen and monitor (7) Coronary artery disease: Code(s): I25.10 - Atherosclerotic heart disease of [place] coronary artery without angina pectoris Status: Acute DS: Summary Hospital Course Reason for hospitalization: This is a 71-year-old male with past medical history significant for coronary artery disease status post stent placement, myocardial infarction, type 2 diabetes mellitus dementia, he resides at a nursing patient was brought to the emergency room after he was found to have a saturation on of 88% on room air. Patient is unable to give any history due to his dementia.? states that he has not been the same ever since he had his myocardial infarction and stent placement. History has been obtained from who is at bedside. preliminary workup in the emergency room was significant for CT of the chest was reported as: IMPRESSION: No CT evidence of acute pulmonary embolus. Mild-moderate volume pericardial effusion, with pericarditis and possible tamponade physiology. Small bilateral pleural effusions. Gallbladder hydrops, of doubtful clinical significance unless accompanied by right upper quadrant pain and/or abnormal labs. Hospital Course: HPI-This is a 71-year-old male with past medical history significant for coronary artery disease status post stent placement, myocardial infarction, type 2 diabetes mellitus dementia, he resides at a nursing patient was brought to the emergency room after he was found to have a saturation on of 88% on room air. Patient is unable to give any history due to his dementia.? states that he has not been the same
== END 2021-12-14 14:24 | DRG 316 ==
LOC: ANHED 19:19 → ANHIMU 22:34 → ANH3MED 12-13 23:05
PROVIDERS: Nurse Practitioner; Admitting Provider Internal Medicine; Emergency Provider Emergency Medicine; PCP Internal Medicine; Visit Provider Family Medicine
DX: I30.9 Acute pericarditis, unspecified (principal); I25.10 Atherosclerotic heart disease of native coronary artery without angina pectoris; I10 Essential (primary) hypertension; I73.9 Peripheral vascular disease, unspecified; E11.42 Type 2 diabetes mellitus with diabetic polyneuropathy; E66.01 Morbid (severe) obesity due to excess calories; R77.8 Other specified abnormalities of plasma proteins; F03.90 Unspecified dementia, unspecified severity, without behavioral disturbance, psychotic disturbance, mood disturbance, and anxiety; Z20.822 Contact with and (suspected) exposure to COVID-19; Z79.01 Long term (current) use of anticoagulants; Z79.4 Long term (current) use of insulin; Z95.5 Presence of coronary angioplasty implant and graft; Z86.718 Personal history of other venous thrombosis and embolism; I25.2 Old myocardial infarction
CPT/HCPCS: 36415; 71046; 71275; 76775; 80048; 82948; 83880; 84443; 84484; 85014; 85018; 85025; 85027; 85380; 85652; 87426; 93005; 93970; 99285; A9270; C8929; C9803; J1650; J1815; J7040; Q9957; Q9967; U0003; U0005

== ENCOUNTER 2021-12-29 16:19 | Inpatient (IN) | payer OTHER, MEDICAID, SELFPAY ==
[2021-12-29] VITALS (30 sets, daily range): BP systolic 79–129; BP diastolic 50–81; PULSE 93–110; RESP 17–30; TEMP 36.2–37.6; O2SAT 95–98
--- NOTE | ~2021-12-29 | CT_ITS ---
EXAMINATION: CT abdomen pelvis wo con DATE: 12/29/2021 20:31 INDICATION: Leukocytosis. Urinary tract infection. TECHNIQUE: Computed tomography (CT) of the abdomen and pelvis was performed without intravenous contr ast. Automated exposure control and iterative reconstruction technique were employed. The dose-length product was 1654.73 mGy-cm. COMPARISON: Chest CT 12/11/2021 FINDINGS: The visualized portions of the lung bases demonstrate mild atelectasis. Calcified left lung nodules and calcified left hilar lymph nodes are consistent with old granulomatous disease. There ar e small pleural effusions. The heart size is normal. There are coronary artery calcifications. There is a small pericardial effusion. The liver is normal. The gallbladder is distended with pericholecyst ic fat stranding. Calcifications in the spleen are consistent with old granulomatous disease. The mills creas, adrenal glands are normal. There is a 6 mm hemorrhagic cyst in right kidney. Left kidney is no rmal. There are stones in the bladder. The prostate is mildly enlarged. Stool distends the rectum. Th e appendix is not visualized. There are no pathologically enlarged lymph nodes. There are bilateral i nguinal hernias containing fat. There is trace ascites. There is severe thoracic and lumbar spondylos is. IMPRESSION: 1. Acute cholecystitis. 2. Bladder stones. 3. Small pleural effusions. 4. Small pericardial effusion with improvement from 12/11/2021. Reviewed, dictated and finalized at location A.
--- NOTE | ~2021-12-29 | CT_ITS ---
EXAMINATION: CT abdomen pelvis wo con DATE: 01/01/2022 13:46 INDICATION: Anemia. Right upper quadrant abdominal discomfort. TECHNIQUE: Computed tomography (CT) of the abdomen and pelvis was performed without intravenous contr ast. Automated exposure control and iterative reconstruction technique were employed. The dose-length product was 1546.18 mGy-cm. COMPARISON: CT abdomen and pelvis 12/29/2021 FINDINGS: The visualized portions of the lung bases demonstrate small pleural effusions and dependent atelectasis. Calcified left lung nodules and calcified left hilar lymph nodes are consistent with ol d granulomatous disease. The heart size is normal. There are coronary artery calcifications. There is a small pericardial effusion. The nasogastric tube tip is in the stomach. The gallbladder is distend ed. There is a percutaneous cholecystostomy tube in expected position. There is fat stranding around the gallbladder. The liver is normal. Calcifications in the spleen are consistent with old granulomat ous disease. The pancreas, adrenal glands, and kidneys are normal. There are 2 stones in the bladder with the larger measuring 21 mm. The bladder is decompressed by a Mora catheter. There are no dilate d loops of bowel. The appendix is not visualized. There is a small volume of ascites. There are no pa thologically enlarged lymph nodes. There are bilateral inguinal hernias containing fat. There is soila re thoracic and lumbar spondylosis. There is mild chronic anterior wedging of multiple vertebral bodi es. There is lumbar levoscoliosis. IMPRESSION: 1. Acute cholecystitis with persistent gallbladder distension with percutaneous cholecystostomy tube in expected position. Given that the tube drains by gravity, I recommend turning the patient toward h is right to allow bile to more easily flow into the drainage bag. 2. Small volume of ascites, worsened from 12/29/2021. 3. Small pleural effusions, worsened from 12/29/2021. 4. Stable small pericardial effusion. 5. Bladder stones. Reviewed, dictated and finalized at location B. IMPRESSION: 1. Acute cholecystitis with persistent gallbladder distension with percutaneous cholecystostomy tube in expected position. Given that the tube drains by gravi ty, I recommend turning the patient toward his right to allow bile to more easi ly flow into the drainage bag. 2. Small volume of ascites, worsened from 12/29/2021. 3. Small pleural effusions, worsened from 12/29/2021. 4. Stable small pericardial effusion. 5. Bladder stones.
--- NOTE | ~2021-12-29 | XR_ITS ---
EXAMINATION: XR abdomen NG/feed tube insert DATE: 12/30/2021 07:55 INDICATION: Nasogastric tube placement. TECHNIQUE: A semierect view of the abdomen was obtained. COMPARISON: None. FINDINGS: The lower abdomen is excluded. The nasogastric tube tip is in the stomach. A right internal jugular central venous catheter is seen with tip in the right atrium. IMPRESSION: 1. Nasogastric tube tip in the stomach. 2. Central line tip in right atrium. Reviewed, dictated and finalized at location A.
--- NOTE | ~2021-12-29 | US_ITS ---
EXAMINATION: US venous doppler [facility] DATE: 12/31/2021 10:56 INDICATION: Deep venous thrombosis TECHNIQUE: Grayscale ultrasound images without and with compression and Doppler ultrasound images of the bilateral lower extremity veins were obtained. COMPARISON: 12/12/2021 FINDINGS: The visualized portions of right common femoral vein, profunda (deep) femoral vein, femoral vein, pop liteal vein, posterior tibial veins and greater saphenous vein outflow are patent. The visualized portions of left common femoral vein, profunda femoral vein, femoral vein, popliteal v ein, posterior tibial veins and greater saphenous vein outflow are patent. IMPRESSION: 1. No deep venous thrombosis in either lower limb. Reviewed, dictated and finalized at location A.
--- NOTE | ~2021-12-29 | XR_ITS ---
EXAMINATION: XR chest port-a-cath/central DATE: 12/30/2021 07:55 INDICATION: Central line placement. TECHNIQUE: A single frontal view of the chest was obtained. COMPARISON: Chest single view 12/29/2021, CT abdomen and pelvis 12/29/2021 FINDINGS: There are airspace opacities at the lung bases. A calcified left lung nodule and calcified left hilar lymph nodes are consistent with old granulomatous disease. No pleural effusion or pneumoth orax. The heart size is normal. The nasogastric tube tip is in the stomach. A right internal jugular central venous catheter is seen with tip in the right atrium. IMPRESSION: 1. Central line tip in the right atrium. 2. Stable airspace opacities at the lung bases, likely atelectasis. Reviewed, dictated and finalized at location A.
--- NOTE | ~2021-12-29 | US_ITS ---
EXAMINATION: US abdomen limited DATE: 01/02/2022 13:08 INDICATION: Acute cholecystitis. TECHNIQUE: Multiple grayscale and Doppler ultrasound images of the abdomen were obtained. COMPARISON: CT abdomen and pelvis 01/01/2022, ultrasound 12/30/2021 FINDINGS: The gallbladder is distended and filled with hyperechoic material. The percutaneous cholecy stostomy tube is in expected position. I flushed the tube earlier today with difficulty and aspirated atif blood. IMPRESSION: 1. Distended gallbladder filled with blood with cholecystostomy tube in expected position. The blood is likely too coagulated for tube drainage. I discussed this result with Dr. Carter. Reviewed, dictated and finalized at location B. IMPRESSION: 1. Distended gallbladder filled with blood with cholecystostomy tube in expecte d position. The blood is likely too coagulated for tube drainage. I discussed t his result with Dr. Carter.
--- NOTE | ~2021-12-29 | US_ITS ---
EXAMINATION: US perc cholecystostomy w imag DATE: 12/30/2021 11:08 INDICATION: Acute cholecystitis. TECHNIQUE: The procedure including the risks, benefits, and alternatives was discussed with the patie nt's by phone. Risks discussed included bleeding including hemorrhage, infection, and bile perit onitis. Oral consent was obtained. The skin overlying the gallbladder was prepped and draped in usual sterile fashion. Anesthetic was administered with 1% lidocaine subcutaneously. An 8.5 Fr catheter was inserted into the gallbladder by trocar technique. The metal stiffener and trocar needle were rem dena, and the pigtail tip was locked. Bile was aspirated and sent for culture. The catheter was stitc hed to the skin with suture. There were no immediate complications. FINDINGS: Ultrasound images demonstrate the catheter within the gallbladder. 7 mL bile was aspirated. IMPRESSION: 1. Successful ultrasound-guided cholecystostomy tube placement. 2. 7 mL black bile was sent for aerobic and anaerobic cultures. 3. The catheter will be managed by Dr. Cornelius. A catheter cholangiogram may be performed not less than 48 hours after tube placement if clinically indicated to assess cystic duct patency. If cholecystect matthew is not eventually performed and the infectious episode has resolved, the tube may be removed over a guidewire, preferably not less than 3 weeks after placement to allow time for a mature catheter tr act to form to prevent bile leakage and peritonitis. Reviewed, dictated and finalized at location A. IMPRESSION: 1. Successful ultrasound-guided cholecystostomy tube placement. 2. 7 mL black bile was sent for aerobic and anaerobic cultures. 3. The catheter will be managed by Dr. Cornelius. A catheter cholangiogram may be p erformed not less than 48 hours after tube placement if clinically indicated to assess cystic duct patency. If cholecystectomy is not eventually performed and the infectious episode has resolved, the tube may be removed over a guidewire, preferably not less than 3 weeks after placement to allow time for a mature ca theter tract to form to prevent bile leakage and peritonitis.
--- NOTE | ~2021-12-29 | CT_ITS ---
EXAMINATION: CT brain wo con DATE: 12/29/2021 19:53 INDICATION: Altered mental status. TECHNIQUE: Computed tomography (CT) of the head was performed without intravenous contrast. The mA wa s adjusted according to patient size. Iterative reconstruction technique was employed. The dose-lengt h product was 983.67 mGy-cm. COMPARISON: Head CT 11/23/2011 FINDINGS: There are scattered areas of low attenuation in the cerebral white matter. There is no intr acranial hemorrhage, acute infarction, or abnormal intracranial mass lesion. The ventricles are dominga l in size. The orbits are normal. There is mild mucosal thickening in the paranasal sinuses. There ar e trace bilateral mastoid effusions. IMPRESSION: 1. Mild nonspecific cerebral white matter disease, which likely represents chronic small vessel ische dian disease, worsened from 11/23/2011. Reviewed, dictated and finalized at location A. IMPRESSION: 1. 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
--- NOTE | ~2021-12-29 | XR_ITS ---
EXAMINATION: XR chest 1V portable DATE: 12/29/2021 19:00 INDICATION: Transient alteration of awareness. TECHNIQUE: A single frontal view of the chest was obtained. COMPARISON: Chest 2 views 12/11/2021, chest CT 12/11/2021 FINDINGS: Calcified left lung nodules and calcified left hilar lymph nodes are consistent with old ad enomatous disease. There is mild atelectasis at the lung bases. No pleural effusion or pneumothorax. The heart size is normal. IMPRESSION: 1. Mild atelectasis at the lung bases. Reviewed, dictated and finalized at location A.
--- NOTE | 2021-12-29 16:36 | ECG_ITS ---
Measurements Intervals [place] Rate: 107 P: 59 NV: 178 QRS: 28 QRSD: 106 T: 190 QT: 374 QTc: 501 Interpretive Statements SINUS TACHYCARDIA LOW QRS VOLTAGE IN PRECORDIAL LEADS INFERIOR INFARCT, AGE INDETERMINATE ST-T WAVE ABNORMALITY IN ANTEROLAT/HIGH LAT LEADS- CONSIDER ISCHEMIA BASELINE ARTIFACT- V1 ABNORMAL ECG COMPARED TO ECG 12/11/2021 13:43:13 HEART RATE HAS INCREASED ST-T WAVE ABNORMALITY IN ANTEROLAT/HIGH LAT LEADS- CONSIDER ISCHEMIA NOW PRESENT Electronically Signed On 12-29-2021 16:46:46 CDT by Andrea Yanes D.O.
--- NOTE | 2021-12-29 17:01 | ED.AMS ---
HPI - Altered Mental Status General Chief Complaint: Altered Mental Status <Arianne Ruiz PA-C - Last Filed: 12/30/21 12:12> Stated Complaint: AMS <Arianne Ruiz PA-C - Last Filed: 12/30/21 12:12> Time Seen by Provider: 12/29/21 16:54 <Arianne Ruiz PA-C - Last Filed: 12/30/21 12:12> History of Present Illness HPI narrative: Patient is a 71-year-old male with a history of CAD status post stenting, diabetes, dementia, recently pericardial effusion diagnosed on CTA/echo without tamponade thought possibly secondary to pericarditis, currently residing in a nursing facility, here from his facility for reported decreased responsiveness and low blood pressures. Patient does not provide reliable history due to his baseline mental status although he does state he has felt weak over the past several days. EF of 50-55% on recent echo. <Arianne Ruiz PA-C - Last Filed: 12/30/21 12:12> Related Data Home Medications: Home Medications Medication Instructions Recorded Confirmed acetaminophen 325 mg chewable 650 mg PO Q6H PRN Pain, Mild 12/11/21 12/30/21 tablet aspirin 81 mg chewable tablet 81 mg PO DAILY 12/11/21 12/30/21 atorvastatin 80 mg tablet 80 mg PO HS 12/11/21 12/30/21 bupropion HCl 300 mg 24 hr tablet, 300 mg PO QAM 12/11/21 12/30/21 extended release carvedilol 25 mg tablet 25 mg PO BID 12/11/21 12/30/21 clopidogrel 75 mg tablet 75 mg PO DAILY 12/11/21 12/30/21 cyclobenzaprine 5 mg tablet 5 mg PO TID 12/11/21 12/30/21 diclofenac sodium 1 % topical gel 1 ea topical DAILY 12/11/21 12/30/21 diflorasone 0.05 % topical cream 1 applic topical DAILY 12/11/21 12/30/21 gabapentin 100 mg capsule 100 mg PO Q8H 12/11/21 12/30/21 insulin glargine 100 unit/mL (3 5 unit subcut HS 12/11/21 12/30/21 mL) subcutaneous pen losartan 25 mg tablet 25 mg PO DAILY 12/11/21 12/30/21 pantoprazole 40 mg tablet,delayed 40 mg PO BID 12/11/21 12/30/21 release polyethylene glycol 3350 17 17 g PO DAILY 12/11/21 12/30/21 gram/dose oral powder quetiapine 25 mg tablet (Seroquel) 12.5 mg PO BID PRN Agitation 12/11/21 12/30/21 venlafaxine 75 mg tablet 150 mg PO DAILY 12/11/21 12/30/21 apixaban 5 mg tablet (Eliquis) 5 mg PO BID 12/30/21 12/30/21 linagliptin 5 mg tablet (Tradjenta) 5 mg PO DAILY 12/30/21 12/30/21 <Arianne Ruiz PA-C - Last Filed: 12/30/21 12:12> Allergies/Adverse Reactions: Allergies Allergy/AdvReac Type Severity Reaction Status Date / Time prednisone Allergy Severe COMA FOR 1 Verified 12/29/21 20:51 YEAR <Arianne Ruiz PA-C - Last Filed: 12/30/21 12:12> Review of Systems Review of Systems: ROS unobtainable: Yes unobtainable due to mental status <Arianne Ruiz PA-C - Last Filed: 12/30/21 12:12> [facility] Past Medical History Medical History: Medical History Coronary artery disease DVT (deep venous thrombosis) Effusion, pericardium Essential hypertension History of GI bleed History of TIA (transient ischemic attack) Morbid obesity due to excess calories PAD (peripheral artery disease) <JIM Morales Last Filed: 12/30/21 12:12> Surgical History Surgical History: Surgical History History of ankle surgery <Arianne Ruiz PA-C - Last Filed: 12/30/21 12:12> Family History Family History: Family History Father Family history of malignant neoplasm Mother Family history of heart disease in male family member before age 55 Hypertension Family history of cardiovascular disease <Arianne Ruiz PA-C - Last Filed: 12/30/21 12:12> Social History Social History: Social History Social History: the patient is from [facility] it is noted that he do
[2021-12-29] MEDS: LACTATED RINGERS 1,000 ML 999 ML IV CONT ×3 (17:08→21:50)
[2021-12-29 18:09] LABS: Add Urine Microscopic? YES; Appearance Urine Turbid (Clear); Bilirubin Urine 2+ (Negative); Blood Urine 3+ (Negative); Color Urine Red (Yellow); Glucose Urine UA Negative (Negative); Ketones Urine 1+ mg/dL (Negative); Leukocyte Esterase Ur 3+ LEU/UL (Negative); Nitrate Urine Positive (Negative); Protein Urine 3+ mg/dL (Negative)
[2021-12-29 18:14] LABS: Bacteria Urine 1+ /hpf; Mucus Urine Few /lpf; RBC Urine >75 /hpf (0-2); Squamous Epithelial Cell Urine Moderate /hpf (Few); WBC Clumps Urine Present /HPF; WBC Urine >75 /hpf
[2021-12-29 18:16] LABS: INR 2.7; Prothrombin Time 28.1 Seconds (11.1-14.7)
[2021-12-29 18:17] LABS: Partial Thromboplastin Time 41.7 SECONDS (22.3-36.8)
[2021-12-29 18:29] LABS: Erythrocyte Sedimentation Rate 21 mm/hr (0-20)
[2021-12-29 18:32] LABS: Ammonia < 9 umol/L (9-30)
[2021-12-29 18:37] LABS: Alanine Aminotransferase 16 U/L (6-50); Albumin Level 3.6 g/dL (3.5-5.1); Alkaline Phosphatase 111 U/L (38-126); Anion Gap 15 mmol/L (8-16); Aspartate Amino Transferase 26 U/L (17-59); Bilirubin,Total 1.2 mg/dL (0.2-1.3); Blood Urea Nitrogen 19 mg/dL (9-20); Calcium 9.2 mg/dL (8.4-10.2); Carbon Dioxide 26 mmol/L (22-30); Chloride 102 mmol/L (98-107); Creatine Kinase 21 U/L (55-170); Estimated CRCL calculation 69 ml/min; Estimated Glomerular Filt Rate > 60; Glucose 158 mg/dL (65-110); Potassium 3.4 mmol/L (3.4-5.0); Sodium 143 mmol/L (137-145); Troponin I 0.062 ng/mL (0.000-0.034)
--- NOTE | 2021-12-29 18:45 | PC.NURSE ---
Sanitation Inspector updated patient's . Patient's : Rachna Almaraz. She reports she is a 100 miles away right now without transportation available at this time. She can be reached by telephone for further questions and would call back in a little bit for another update. Patient's phone number is [phone]
[2021-12-29 18:55] LABS: CRP 33.8 mg/dL (<1.0)
[2021-12-29 19:13] LABS: Basophils Absolute Auto 0.1 K/mm3 (0.0-0.1); Basophils Percent Auto 0.1 % (0.2-1.2); Eosinophils Percent Auto 0.1 % (0-4.4); Hematocrit 42.4 % (42.0-52.0); Hemoglobin 13.5 g/dL (14.0-18.0); Immature Granulocyte Absolute 0.93 K/mm3 (0.00-0.031); Immature Granulocyte Percent A 2.6 % (0-0.5); Lymphocytes Absolute Auto 1.62 K/mm3 (0.9-3.2); Lymphocytes Percent Auto 4.5 % (18.3-44.2); Mean Corpuscular HGB Conc 31.8 g/dl (32-36); Mean Corpuscular Hemoglobin 26.6 pg (26-34); Mean Corpuscular Volume 83.5 fl (80-100); Monocytes Absolute Auto 3.5 K/mm3 (0.1-0.6); Monocytes Percent Auto 9.7 % (2.6-8.5); Platelet Count Result 304 k/mm3 (150-375); Red Blood Count 5.08 M/mm3 (4.6-6.20); Red Cell Distribution Width 17.5 % (11.5-14.5); White Blood Count 36.1 K/mm3 (4.5-10.0)
--- NOTE | 2021-12-29 19:23 | PC.NURSE ---
Patient care report given to LEONORA Schwartz. All questions answered at this time and care turned over to LEONORA Schwartz.
--- NOTE | 2021-12-29 19:56 | PC.NURSE ---
Pt pulled out IV in catscan in left upper arm. bleeding controlled with gauze and coband. Pt confused upon arrival back to room stating help me . Pt reoriented to room and calm and cooperative.
--- NOTE | 2021-12-29 20:38 | PC.NURSE ---
IV by second RN unsuccessful. requested ultrasound trained RN to assist IV placement.
[2021-12-29 21:03] LABS: Reflex Lactic Acid Yes or No Add Lactic
[2021-12-29 21:32] LABS: Lactic Acid 3.8 mmol/L (0.7-2.0)
[2021-12-29 21:32] LABS: SARS-CoV-2 RNA PCR Negative
[2021-12-29 21:52] LABS: Troponin I 0.037 ng/mL (0.000-0.034)
[2021-12-29] MEDS: LACTATED RINGERS 1,000 ML 125 ML IV CONT (23:25)
--- NOTE | 2021-12-29 23:25 | PM.IMHP ---
H&P: HPI History of Present Illness Date/Time: 12/29/21 23:25 Chief Complaint: Altered mental status Narrative: this is a 71 year old male patient who is from [facility]. The patient is confused and is not able to answer questions so most of the information was obtained from the Hospital records and the [facility] records. the patient has a history of coronary artery disease status post stenting, diabetes, dementia, and recently pericardial effusion noted on CTA echo without tamponade thought possibly secondary to pericarditis. At the facility the patient had decreased responsiveness and low blood pressure. Initially his blood pressure was found to be 101/72 and then it dropped down 80/56 at 1 time. The patient was given IV fluids and his blood pressure came up to 129/81. His white count is noted to be 36.1. Lactic was found to be 3.8. Troponin 0.037 and previous 0.062. This appears to be his baseline. C reactive protein 33.8. The patient was found to be positive for UTI. COVID is negative. Patient was started on lactated Ringer's and started on Zosyn and vancomycin. He was also given Rocephin in the emergency room. Abdominal pelvis CT was read as the following 1. Acute cholecystitis. 2. Bladder stones. 3. Small pleural effusions. 4. Small pericardial effusion with improvement from 12/11/2021. surgery has been consulted. Head CT was read as mild nonspecific cerebral white matter disease which likely represents chronic small vessel ischemic disease worsened from 11/23/2011. Chest x-ray was read as mild atelectasis at the lung bases The patient is being admitted to inpatient services on the date of service of 12/29/2021.. Review of Systems Review of Systems: See HPI. The patient is not able to provide an adequate history. All systems reviewed & are unremarkable except as noted in HPI and below Constitutional: Constitutional: Reports as per HPI and Reports no additional constitutional complaints Eyes: Eyes: Reports as per HPI and Reports no additional eye complaints ENT: Reports system reviewed and no additional complaints, except as documented and Reports Normal hearing present Cardiovascular: Cardiovascular: Reports no additional cardiovascular complaints Respiratory: Respiratory: Reports no additional respiratory complaints and Reports no additional respiratory complaints Gastrointestinal: Gastrointestinal: Reports as per HPI and Reports no additional gastrointestinal complaints Musculoskeletal: Musculoskeletal: Reports no additional musculoskeletal complaints Integumentary/Breasts: Skin/Breast: Reports system reviewed and no additional complaints, except as docu and Reports as per HPI Neurologic: Reports system reviewed and no additional complaints, except as documented, Reports as per HPI and Reports Normal hearing present Psychiatric: Psychiatric: Reports no additional psychiatric complaints and Reports as per HPI Endocrine: Endocrine: Reports no additional endocrine complaints Hematologic/Lymphatic: Hematologic/Lymphatic: Reports no additional hematologic/lymphatic complaints Allergic/Immunologic: Allergic/Immunologic: Reports no additional allergic/immunologic complaints [facility] Past Medical History Medical History (Updated 12/29/21 @ 23:49 by Dinora Bee NP) Coronary artery disease DVT (deep venous thrombosis) Effusion, pericardium Essential hypertension History of GI bleed History of TIA (transient ischemic attack) Morbid obesity due to excess calories PAD (peripheral artery disease) Surgical History Surgical History (Updated 12/29/21 @ 23:41 by Dinora Bee NP) History of ankle surgery Family History Family History Father Family history of malignant neoplasm Mother Family history of heart disease in male family member before age 55 Hypertension Family history of cardiovascular disease Social H
[2021-12-30] VITALS (40 sets, daily range): BP systolic 64–122; BP diastolic 28–68; PULSE 71–107; RESP 14–28; TEMP 35.9–36.8; O2SAT 94–100; BMI 36.1
--- NOTE | 2021-12-30 00:08 | PC.NURSE ---
This patient, Juan Pablo Almaraz, was admitted to IMU Room 206-02. Patient/family oriented to hospital policies and general routines including ID bracelet, bed and alarms, visiting hours, pain management, procedures, bathroom and other care routines, personal items, smoking policy, room service/diet, and visiting hours. Information on how to activate the Rapid Response Team has been discussed. Patient/Family are encouraged to report perceived risks to care and to ask questions if they do not understand what they are told or what they should do.
[2021-12-30 00:52] LABS: Troponin I 0.039 ng/mL (0.000-0.034)
[2021-12-30] MEDS: LACTATED RINGERS 1,000 ML 250 ML IV CONT (02:35)
[2021-12-30] MEDS: SODIUM CHLORIDE 0.9% IV 1,000 ML 150 ML IV CONT ×2 (03:57→07:12)
[2021-12-30 05:00] LABS: Alanine Aminotransferase 15 U/L (6-50); Alkaline Phosphatase 91 U/L (38-126); Anion Gap 14 mmol/L (8-16); Aspartate Amino Transferase 22 U/L (17-59); Bilirubin,Total 1.2 mg/dL (0.2-1.3); Blood Urea Nitrogen 21 mg/dL (9-20); Calcium 8.5 mg/dL (8.4-10.2); Carbon Dioxide 24 mmol/L (22-30); Chloride 101 mmol/L (98-107); Estimated CRCL calculation 74 ml/min; Estimated Glomerular Filt Rate > 60; Glucose 129 mg/dL (65-110); Lactate Dehydrogenase 278 U/L (120-246); Magnesium 1.8 mg/dL (1.6-2.3); Potassium 3.1 mmol/L (3.4-5.0); Sodium 139 mmol/L (137-145)
[2021-12-30 05:19] LABS: Lipase < 10 U/L (23-300)
--- NOTE | 2021-12-30 05:36 | PC.NURSE ---
Patient had a large bilous emesis. Moaning, abdomen very tender to palpation. Unable to assess pain due to dementia. B/P 82/50, SR 95,100% sat on room air, Temp 97.0. Dr. Higgins notified of changes. Will plan to transfer to ICU. Normal saline 500ml bolus started.
--- NOTE | 2021-12-30 06:02 | PC.NURSE ---
Spoke with Rachna Almaraz at 0547 about changes in patients condition and consent for central line placement by Dr. Higgins. Advised will be transferring patient to ICU 2. Answered all questions.
--- NOTE | 2021-12-30 06:04 | PC.NURSE ---
This patient, Juan Pablo Almaraz, was transferred to ICU-2 on 12/30/21 at 0604. Personal belongings sent with patient. Report given to Jenny Vee RN. Appropriate documentation sent with patient.
--- NOTE | 2021-12-30 06:17 | PC.NURSE ---
This patient, Juan Pablo Almaraz, was received from [facility] 206-2 on 12/30/21 at 0617. Patient/family oriented to unit policies and routines
[2021-12-30] MEDS: SODIUM CHLORIDE 0.9% IV 500 ML IV CONT (06:30)
[2021-12-30] MEDS: NOREPINEPHRINE 8 MG/D5W 250 ML 8 MG/250 ML BAG 9.38 MG IV CONT (06:45)
--- NOTE | 2021-12-30 06:52 | P.PNCROSS_ITS ---
Event Note Event Note Event Note: Patient has been admitted to the hospital for UTI and acute cholecystitis. The patient met severe sepsis criteria with lactic acid greater than 4, leukocytosis, tachypnea and hypotension despite IV fluid resuscitation. Nursing staff notified me around 02:00that the patient had a low blood pressures with systolics in the 80s. In order was given for an additional 500 mL bolus over 2 hours as the patient had received 3 L in the ER. He still had low urine output and did not appear to be volume overloaded. The patient responded to the fluid bolus and blood pressures came up to 100/47. Nursing staff notified me around 05:00 the patient's blood pressures again dropped. An order was given to transfer the patient to the ICU and while awaiting for transfer to the ICU an order was given for another 500 mL bolus. The patient's blood pressures did improved to the low 90s but S in his bolus was completed the patient's blood pressures were down in the 70 systolic. Had placed an order for Levophed and it is his patient of central line placement. At this point the patient had arrived in the ICU. The patient was placed in Trendelenburg and central line was attempted. I toes to attempt a femoral line as the patient is demented and moving about in bed and with him being hypercoagulable with INR of 2.6 I did not feel safe attempting and IJ with limited resources. Subsequently attempted femoral line but patient is vasculature was deep and femoral artery was overly ing the femoral vein. I and of accessing the femoral artery with the needle. Needle was subsequently retracted and pressure was held for several minutes. Hemostasis was achieved. During the line attempt the patient's blood pressures were 87 over 50s systolic. After central line attempt patient's blood pressures were back at 78 systolic. An order was given to run Levophed peripherally for brief time until he design studio consultant could take over care. As design studio consultant will be on site shortly. Order was also given the place an NG tube given nursing reported the patient having bilious emesis and the patient's worsening abdominal distension in increasingly severe abdominal pain. Order was given to place Mora catheter is will also to monitor strict I&O's in the patient's critical condition and given his low urine output. In total patient received 4 L of fluid bolus. Potassium supplementation has been provided. Will check repeat INR. 35 minutes spent in critical care activities. Due to a high probability of clinically significant, life threatening deterioration, the patient required my highest level of preparedness to intervene emergently and I personally spent this critical care time directly and personally managing the patient. This critical care time included obtaining a history; examining the patient; pulse oximetry; ordering and review of studies; arranging urgent treatment with development of a management plan; evaluation of patient's response to treatment; frequent reassessment; and discussions with other providers. It was exclusive of separately billable procedures and treating other patients and teaching time. Please see Assessment and Plan section and the rest of the note for further information on patient assessment and treatment.
[2021-12-30] MEDS: MIDAZOLAM HCL (*CRX) 2 MG/2 ML VIAL 1 MG IV PUSH ×2 (07:20→07:28)
[2021-12-30 07:50] LABS: INR 3.6; Prothrombin Time 34.5 Seconds (11.1-14.7)
[2021-12-30] MEDS: KCL 40 MEQ/WATER 100 ML 100 ML 25 ML IVPB (08:03)
[2021-12-30] MEDS: FAMOTIDINE 20 MG/2 ML VIAL IV PUSH ×2 (08:50→22:10)
--- NOTE | 2021-12-30 08:55 | PM.CNGS ---
Assessment and Plan Assessment and plan (1) Sepsis: Code(s): A41.9 - Sepsis, unspecified organism Status: Acute Assessment and Plan: admitted to ICU, cont supportive care including pressor support, IV abx (2) Cholecystitis: Code(s): K81.9 - Cholecystitis, unspecified Status: Acute Assessment and Plan: hold anticoagulation, will setup for emergent perc cholecystostomy History of Present Illness Consult details Consult date: 12/30/21 Reason for consult: abdominal pain Requesting physician: Carisa Robin DO Narrative: The pt is a 71 y/o M presenting from [facility] for worsening MS and vitals. Pt has been very lethargic, confused over last few days. Pt found to be quite hypotensive as well. All history obtained via chart. Pt found to be profoundly septic on workup and has been subsequently admitted to ICU. Workup significant for acute cholecystitis. Review of Systems Review of Systems: ROS unobtainable: Yes unobtainable due to mental status PMFSH Past Medical History Medical History Coronary artery disease DVT (deep venous thrombosis) Effusion, pericardium Essential hypertension History of GI bleed History of TIA (transient ischemic attack) Morbid obesity due to excess calories PAD (peripheral artery disease) Surgical History Surgical History History of ankle surgery Family History Family History Father Family history of malignant neoplasm Mother Family history of heart disease in male family member before age 55 Hypertension Family history of cardiovascular disease Social History Social History Social History: the patient is from [facility] it is noted that he does not smoke. He is listed as being . He is retired. 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 He has a Jen white listed as a child. Code status full code Smoking status: Never smoker Second hand tobacco smoke exposure: Yes Alcohol intake: never Substance use: never Spiritual care concerns: No Meds Home Medications and Allergies Home Medications Medication Instructions Recorded Confirmed Type acetaminophen 325 mg chewable 650 mg PO Q6H PRN Pain, Mild 12/11/21 12/30/21 History tablet aspirin 81 mg chewable tablet 81 mg PO DAILY 12/11/21 12/30/21 History atorvastatin 80 mg tablet 80 mg PO HS 12/11/21 12/30/21 History bupropion HCl 300 mg 24 hr tablet, 300 mg PO QAM 12/11/21 12/30/21 History extended release carvedilol 25 mg tablet 25 mg PO BID 12/11/21 12/30/21 History clopidogrel 75 mg tablet 75 mg PO DAILY 12/11/21 12/30/21 History cyclobenzaprine 5 mg tablet 5 mg PO TID 12/11/21 12/30/21 History diclofenac sodium 1 % topical gel 1 ea topical DAILY 12/11/21 12/30/21 History diflorasone 0.05 % topical cream 1 applic topical DAILY 12/11/21 12/30/21 History gabapentin 100 mg capsule 100 mg PO Q8H 12/11/21 12/30/21 History insulin glargine 100 unit/mL (3 5 unit subcut HS 12/11/21 12/30/21 History mL) subcutaneous pen losartan 25 mg tablet 25 mg PO DAILY 12/11/21 12/30/21 History pantoprazole 40 mg tablet,delayed 40 mg PO BID 12/11/21 12/30/21 History release polyethylene glycol 3350 17 17 g PO DAILY 12/11/21 12/30/21 History gram/dose oral powder quetiapine 25 mg tablet (Seroquel) 12.5 mg PO BID PRN Agitation 12/11/21 12/30/21 History venlafaxine 75 mg tablet 150 mg PO DAILY 12/11/21 12/30/21 History oxycodone 5 mg tablet 5 mg PO BID PRN Pain Rated 4-6 #12 12/13/21 12/30/21 Rx tabs apixaban 5 mg tablet (Eliquis) 5 mg PO BID 12/30/21 12/30/21 History linagliptin 5 mg tablet (Tradjenta) 5 mg PO DAILY 12/30/21 12/30/21 History Allergies Allergy/AdvReac Type Severity Reaction Status Date / Time prednisone Allergy Sev
[2021-12-30 09:06] LABS: Basophils Absolute Auto 0.1 K/mm3 (0.0-0.1); Basophils Percent Auto 0.2 % (0.2-1.2); Hemoglobin 10.1 g/dL (14.0-18.0); Immature Granulocyte Absolute 2.48 K/mm3 (0.00-0.031); Immature Granulocyte Percent A 6.6 % (0-0.5); Immature Platelet Fraction Pct 9.9 % (0.9-11.2); Lymphocytes Absolute Auto 1.43 K/mm3 (0.9-3.2); Lymphocytes Percent Auto 3.8 % (18.3-44.2); Mean Corpuscular HGB Conc 31.6 g/dl (32-36); Mean Corpuscular Hemoglobin 26.8 pg (26-34); Mean Corpuscular Volume 84.9 fl (80-100); Monocytes Absolute Auto 2.5 K/mm3 (0.1-0.6); Monocytes Percent Auto 6.6 % (2.6-8.5); Neutrophils Percent Auto 82.8 % (45.5-73.1); Platelet Count Result 121 k/mm3 (150-375); Red Blood Count 3.77 M/mm3 (4.6-6.20); Red Cell Distribution Width 17.2 % (11.5-14.5); White Blood Count 37.5 K/mm3 (4.5-10.0)
--- NOTE | 2021-12-30 09:11 | PM.DS ---
DS: Summary Time Spent with Patient Time attestation: Total time spent providing and/or coordinating discharge services: DS: Data Data Completed and Pending Labs on day of discharge: Labs from last 24 hours 12/30/21 12/30/21 12/30/21 07:14 04:42 04:42 WBC RBC Hgb Hct MCV MCH MCHC RDW Plt Count MPV Immature Gran % (Auto) Neut % (Auto) Lymph % (Auto) [place] % (Auto) Eos % (Auto) Baso % (Auto) Lymph # (Auto) [place] # (Auto) Eos # (Auto) Baso # (Auto) Abs Immat Gran (auto) Absolute Neuts (auto) Absolute Nucleated RBC Nucleated RBC % ESR PT 34.5 H D INR 3.6 APTT 46.0 H Sodium Potassium Chloride Carbon Dioxide Anion Gap BUN Creatinine Estim Creat Clear Calc Estimated GFR Glucose Lactic Acid 4.0 H Calcium Magnesium Total Bilirubin AST ALT Alkaline Phosphatase Ammonia Lactate Dehydrogenase Total Creatine Kinase Troponin I C-Reactive Protein Total Protein Albumin Lipase TSH (Reflex) 3.010 Urine Color Urine Appearance Urine pH Ur Specific [place] Urine Protein Urine Glucose (UA) Urine Ketones Ur Blood (Man) Urine Nitrate Urine Bilirubin Urine Urobilinogen Leukocyte Esterase Rfl Urine RBC Urine WBC Urine WBC Clumps Ur Squamous Epith Cells Urine Bacteria Urine Mucus SARS-CoV-2 RNA (RT-PCR) 12/30/21 12/30/21 12/30/21 04:42 04:42 00:18 WBC Pending RBC Pending Hgb Pending Hct Pending MCV Pending MCH Pending MCHC Pending RDW Pending Plt Count Pending MPV Pending Immature Gran % (Auto) Pending Neut % (Auto) Pending Lymph % (Auto) Pending [place] % (Auto) Pending Eos % (Auto) Pending Baso % (Auto) Pending Lymph # (Auto) Pending [place] # (Auto) Pending Eos # (Auto) Pending Baso # (Auto) Pending Abs Immat Gran (auto) Pending Absolute Neuts (auto) Pending Absolute Nucleated RBC Pending Nucleated RBC % Pending ESR PT INR APTT Sodium 139 Potassium 3.1 L Chloride 101 Carbon Dioxide 24 Anion Gap 14 BUN 21 H Creatinine 0.90 Estim Creat Clear Calc 74 Estimated GFR > 60 Glucose 129 H Lactic Acid 4.0 H Calcium 8.5 Magnesium 1.8 Total Bilirubin 1.2 AST 22 ALT 15 Alkaline Phosphatase 91 Ammonia Lactate Dehydrogenase 278 H Total Creatine Kinase Troponin I C-Reactive Protein Total Protein 7.0 Albumin 3.0 L Lipase < 10 L TSH (Reflex) Urine Color Urine Appearance Urine pH Ur Specific [place] Urine Protein Urine Glucose (UA) Urine Ketones Ur Blood (Man) Urine Nitrate Urine Bilirubin Urine Urobilinogen Leukocyte Esterase Rfl Urine RBC Urine WBC Urine WBC Clumps Ur Squamous Epith Cells Urine Bacteria Urine Mucus SARS-CoV-2 RNA (RT-PCR) 12/30/21 12/29/21 12/29/21 00:18 21:17 21:17 WBC RBC Hgb Hct MCV MCH MCHC RDW Plt Count MPV Immature Gran % (Auto) Neut % (Auto) Lymph % (Auto) [place] % (Auto) Eos % (Auto) Baso % (Auto) Lymph # (Auto) [place] # (Auto) Eos # (Auto) Baso # (Auto) Abs Immat Gran (auto) Absolute Neuts (auto) Absolute Nucleated RBC Nucleated RBC % ESR PT INR APTT Sodium Potassium Chloride Carbon Dioxide Anion Gap BUN Creatinine Estim Creat Clear Calc Estimated GFR Glucose Lactic Acid 3.8 H Calcium Magnesium Total Bilirubin AST ALT Alkaline Phosphatase Ammonia Lactate Dehydrogenase Total Creatine Kinase Troponin I 0.039 H* 0.037 H* D C-Reactive Protein Total Protein Albumin Lipase TSH (Reflex) Urine Color Urine Appearance Urine pH Ur
--- NOTE | 2021-12-30 09:36 | WPDCNINT ---
Assessment and Plan Assessment and plan (1) Septic shock: Code(s): A41.9 - Sepsis, unspecified organism; R65.21 - Severe sepsis with septic shock Status: Acute Assessment and Plan: Septic shock likely due to cholecystitis and UTI - elevated lactic acid, leukocytosis - RT IJ central line placed 12/30 - continue Zosyn and vancomycin (12/30) - Received adequate IV fluids -Continue maintenance IV fluids -blood cultures obtained -recheck lactic acid -continue Levophed, will maintainMAP > 65 mmHg, add vasopressin. Monitor urine output (2) Cholecystitis: Code(s): K81.9 - Cholecystitis, unspecified Status: Acute Assessment and Plan: Appreciate surgery evaluation and recommendation - IR was consulted and placed a cholecystostomy tube - cultures obtained -continue antibiotics as above (3) DVT (deep venous thrombosis): Code(s): I82.409 - Acute embolism and thrombosis of unspecified deep veins of unspecified lower extremity Status: Acute Assessment and Plan: pt on eliquis at home, Hold for now, will restart once patient starts taking p.o. (4) Major depressive disorder, single episode, unspecified: Code(s): F32.9 - Major depressive disorder, single episode, unspecified Status: Acute Assessment and Plan: hold home meds until pt can take PO and is more awake (5) Essential hypertension: Code(s): I10 - Essential (primary) hypertension Status: Acute Assessment and Plan: Hold all antihypertensives, currently on vasopressors (6) Effusion, pericardium: Code(s): I31.3 - Pericardial effusion (noninflammatory) Status: Acute Assessment and Plan: Small to moderate circumferential pericardial effusion without tamponade physiology on echocardiogram. 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 (7) UTI (urinary tract infection): Code(s): N39.0 - Urinary tract infection, site not specified Status: Acute Assessment and Plan: Patient with UTI, on antibiotics as above -cultures obtained and pending Plan DVT prophylaxis: SCDs Stress ulcer prophylaxis: Famotidine Nutrition: NPO for now Discussed with and son and updated them with patient's condition and plan of care. I updated them regarding patient's condition, explained to them the cholecystostomy tube, I also told him that he is on vasopressors. I discussed code status to which they requested him to be a full code. Code Status: Full code Critical Care Time Spent: 51 minute Due to a high probability of clinically significant, life threatening deterioration, the patient required my highest level of preparedness to intervene emergently and I personally spent this critical care time directly and personally managing the patient. This critical care time included obtaining a history; examining the patient; pulse oximetry; ordering and review of studies; arranging urgent treatment with development of a management plan; evaluation of patient's response to treatment; frequent reassessment; and discussions with other providers. It was exclusive of separately billable procedures and treating other patients and teaching time. Please see Assessment and Plan section and the rest of the note for further information on patient assessment and treatment Line Person Consult Note Consult date: 12/30/21 Reason for consult: Septic shock, Acute cholecystitis, lactic acidosis, UTI, hypokalemia HPI: Juan Pablo Almaraz is a 71 year old male with PMH of CAD with stent, DM, dementia pericardial effusion with no tamponade likely from pericarditis, DVT, on eliquis, HTN, GI bleed, TIA, PAD, presented to the ED on 12/29/2021 from [facility] on 12/29/2021 with complains of altered mental status and hypotension. In the ED patient's systolic blood pressure is well in the 80s, patient received IV fluids with improvement in blood p
[2021-12-30 10:18] LABS: Amphetamine Screen Urine Negative (Negative); Barbiturate Screen Urine Negative (Negative); Benzodiazepines Screen Urine Positive (Negative); Cannabinoid Screen Urine Negative (Negative); Cocaine Screen Urine Negative (Negative); Methadone Screen Urine Negative (Negative); Opiate Screen Urine Negative (Negative); Phencyclidine Screen Urine Negative (Negative)
[2021-12-30 10:21] LABS: Burr Cells 2+ (NORMAL); Poikilocytosis 2+ (NORMAL)
[2021-12-30 10:23] LABS: Schistocytes None Seen (NORMAL)
[2021-12-30 12:13] LABS: Glucose Point of Care 132 mg/dl (65-105)
[2021-12-30] MEDS: CENTRAL LINE FLUSH 10 ML IV PUSH ×3 (12:41→22:10)
[2021-12-30] MEDS: NOREPINEPHRINE 8 MG/D5W 250 ML 8 MG/250 ML BAG 41.25 MG IV CONT (15:25)
[2021-12-30] MEDS: SODIUM CHLORIDE 0.9% IV 1,000 ML 100 ML IV CONT (15:26)
--- NOTE | 2021-12-30 15:32 | PM.IMPN ---
Progress Note: A&P Assessment and Plan (1) Sepsis: Code(s): A41.9 - Sepsis, unspecified organism Status: Acute Assessment and Plan: 12/30/2021 interval history: Patient with septic shock most likely 2/2 UTI and cholescystitis being treated with Zosyn and vancomycin, and being hydrated, patient is somnolent unale to provider detail ROS, patient is seen by surgery service, recommend to hold anticoagulation, plan is to place emergent perc cholecystostomy, patient is seen by customer orders clerk and appreciate, will continue to follow the patient. (2) Cholecystitis: Code(s): K81.9 - Cholecystitis, unspecified Status: Acute Assessment and Plan: seen by surgery service recommended percutaneous cholecystostomy, until sepsis is resolved (3) Pericardial effusion: Code(s): I31.3 - Pericardial effusion (noninflammatory) Status: Acute Assessment and Plan: clinically stable (4) Essential hypertension: Code(s): I10 - Essential (primary) hypertension Status: Acute Assessment and Plan: septic shock hypotensive (5) Coronary artery disease: Code(s): I25.10 - Atherosclerotic heart disease of [place] coronary artery without angina pectoris Status: Acute Assessment and Plan: remains clinically stable (6) DVT (deep venous thrombosis): Code(s): I82.409 - Acute embolism and thrombosis of unspecified deep veins of unspecified lower extremity Status: Acute Assessment and Plan: anticoagulation on hold (7) PAD (peripheral artery disease): Code(s): I73.9 - Peripheral vascular disease, unspecified Status: Acute (8) Elevated troponin: Code(s): R77.8 - Other specified abnormalities of plasma proteins Status: Acute (9) Major depressive disorder, single episode, unspecified: Code(s): F32.9 - Major depressive disorder, single episode, unspecified Status: Acute (10) Hypertension: Code(s): I10 - Essential (primary) hypertension Status: Acute Subjective Date/time seen: 12/30/21 15:32 ? Altered mental status HPI-Narrative: ?this is a 71 year old male patient who is from [facility].? The patient is confused and is not able to answer questions so most of the information was obtained from the? Hospital records and the [facility] records. the patient has a history of coronary artery disease status post stenting, diabetes, dementia, and recently pericardial effusion noted on CTA echo without tamponade thought possibly secondary to pericarditis.? At the facility the patient had decreased responsiveness and low blood pressure.? Initially his blood pressure was found to be 101/72 and then it dropped down 80/56 at 1 time.? The patient was given IV fluids and his blood pressure came up to 129/81.? His white count is noted to be 36.1.? Lactic was found to be 3.8.? Troponin 0.037 and previous 0.062.? This appears to be his baseline.? C reactive protein 33.8.? The patient was found to be positive for UTI.? COVID is negative.? Patient was started on lactated Ringer's and started on Zosyn and vancomycin.? He was also given Rocephin in the emergency room.? Abdominal pelvis CT was read as the following 1. Acute cholecystitis. 2. Bladder stones. 3. Small pleural effusions. 4. Small pericardial effusion with improvement from 12/11/2021. ?surgery has been consulted.? Head CT was read as mild nonspecific cerebral white matter disease which likely represents chronic small vessel ischemic disease worsened from 11/23/2011.? Chest x-ray was read as mild atelectasis at the lung bases? The patient is being admitted to inpatient services on the date of service of 12/29/2021.. 12/30/2021 interval history: Patient with septic shock most likely 2/2 UTI and cholescystitis being treated with Zosyn and vancomycin, and being hydrated, patient is somnolent unale to provider detail ROS, patient is seen by surgery service, rec
[2021-12-30 18:09] LABS: Glucose Point of Care 181 mg/dl (65-105)
[2021-12-30] MEDS: dexmedeTOMIDine 400 MCG/100 ML 400 MCG/100 ML BAG 5.23 MCG IV CONT (18:57)
[2021-12-30] MEDS: NOREPINEPHRINE 8 MG/D5W 250 ML 8 MG/250 ML BAG 35.63 MG IV CONT (22:05)
[2021-12-30] MEDS: MINERAL OIL/WHITE PETROLATUM OINTMENT 1 APPLIC EACH EYE (22:10)
[2021-12-30] MEDS: dexmedeTOMIDine 400 MCG/100 ML 400 MCG/100 ML BAG 18.31 MCG IV CONT (23:55)
[2021-12-31] VITALS (36 sets, daily range): BP systolic 86–133; BP diastolic 56–83; PULSE 69–107; RESP 14–28; TEMP 35.6–36.7; O2SAT 92–97
[2021-12-31 01:47] LABS: Glucose Point of Care 150 mg/dl (65-105)
[2021-12-31] MEDS: SODIUM CHLORIDE 0.9% IV 1,000 ML 100 ML IV CONT ×2 (02:19→15:44)
[2021-12-31] MEDS: NOREPINEPHRINE 8 MG/D5W 250 ML 8 MG/250 ML BAG 18.75 MG IV CONT (04:36)
[2021-12-31] MEDS: dexmedeTOMIDine 400 MCG/100 ML 400 MCG/100 ML BAG 15.69 MCG IV CONT (04:37)
[2021-12-31] MEDS: CENTRAL LINE FLUSH 10 ML IV PUSH ×4 (04:39→21:41)
[2021-12-31 06:19] LABS: INR 2.6; Partial Thromboplastin Time 51.2 SECONDS (22.3-36.8); Prothrombin Time 26.6 Seconds (11.1-14.7)
[2021-12-31 06:38] LABS: Ammonia < 9 umol/L (9-30)
[2021-12-31 06:39] LABS: Lactic Acid Reflex 1.5 mmol/L (0.7-2.0)
[2021-12-31 06:42] LABS: Alanine Aminotransferase 12 U/L (6-50); Albumin Level 2.4 g/dL (3.5-5.1); Alkaline Phosphatase 85 U/L (38-126); Anion Gap 9 mmol/L (8-16); Aspartate Amino Transferase 17 U/L (17-59); Bilirubin,Total 0.7 mg/dL (0.2-1.3); Blood Urea Nitrogen 19 mg/dL (9-20); Calcium 7.7 mg/dL (8.4-10.2); Carbon Dioxide 23 mmol/L (22-30); Chloride 106 mmol/L (98-107); Estimated CRCL calculation 82 ml/min; Estimated Glomerular Filt Rate > 60; Glucose 134 mg/dL (65-110); Magnesium 1.7 mg/dL (1.6-2.3); Phosphorus 2.8 mg/dL (2.5-4.5); Potassium 3.1 mmol/L (3.4-5.0); Sodium 138 mmol/L (137-145)
[2021-12-31 06:59] LABS: Basophils Percent Auto 0.1 % (0.2-1.2); Eosinophils Absolute Auto 0.1 K/mm3 (0-0.3); Eosinophils Percent Auto 0.4 % (0-4.4); Hematocrit 25.8 % (42.0-52.0); Hemoglobin 8.1 g/dL (14.0-18.0); Immature Granulocyte Absolute 0.84 K/mm3 (0.00-0.031); Immature Granulocyte Percent A 3.4 % (0-0.5); Lymphocytes Absolute Auto 2.04 K/mm3 (0.9-3.2); Lymphocytes Percent Auto 8.2 % (18.3-44.2); Mean Corpuscular HGB Conc 31.4 g/dl (32-36); Mean Corpuscular Hemoglobin 26.1 pg (26-34); Mean Corpuscular Volume 83.2 fl (80-100); Mean Platelet Volume 10.7 fl (7.4-10.4); Monocytes Absolute Auto 1.3 K/mm3 (0.1-0.6); Monocytes Percent Auto 5.2 % (2.6-8.5); Neutrophils Absolute Auto 20.5 K/mm3 (1.3-6.7); Neutrophils Percent Auto 82.7 % (45.5-73.1); Platelet Count Result 142 k/mm3 (150-375); Red Cell Distribution Width 17.3 % (11.5-14.5); White Blood Count 24.8 K/mm3 (4.5-10.0)
[2021-12-31] MEDS: ALBUMIN HUMAN 25% 25 GM/100 ML 100 ML IVPB ×3 (08:27→17:08)
[2021-12-31] MEDS: MAGNESIUM SULF 2 GM/WATER 50ML 2 GM/50 ML BAG IVPB (08:27)
[2021-12-31] MEDS: KCL 40 MEQ/WATER 100 ML 100 ML 25 ML IVPB (08:27)
[2021-12-31] MEDS: MINERAL OIL/WHITE PETROLATUM OINTMENT 1 APPLIC EACH EYE ×2 (08:34→21:41)
[2021-12-31] MEDS: FAMOTIDINE 20 MG/2 ML VIAL IV PUSH ×2 (08:34→21:41)
--- NOTE | 2021-12-31 09:56 | WPDINTPN ---
Progress Note: A&P Assessment and Plan (1) Septic shock: Code(s): A41.9 - Sepsis, unspecified organism; R65.21 - Severe sepsis with septic shock Status: Acute Assessment and Plan: Septic shock likely due to cholecystitis and UTI - elevated lactic acid, leukocytosis - RT IJ central line placed 12/30 - continue Zosyn and vancomycin (12/30) - Received adequate IV fluids -Continue maintenance IV fluids -blood cultures obtained -lactic acid has resolved -continue Levophed, will maintainMAP > 65 mmHg, add vasopressin. Monitor urine output (2) Cholecystitis: Code(s): K81.9 - Cholecystitis, unspecified Status: Acute Assessment and Plan: Appreciate surgery evaluation and recommendation -12/30/2021: Cholecystostomy tube was placed by interventional radiologist - cultures obtained and pending -continue antibiotics as above (3) DVT (deep venous thrombosis): Code(s): I82.409 - Acute embolism and thrombosis of unspecified deep veins of unspecified lower extremity Status: Acute Assessment and Plan: pt on eliquis at home, Hold for now, will restart once patient starts taking p.o. -will obtain lower extremity venous Doppler (4) Major depressive disorder, single episode, unspecified: Code(s): F32.9 - Major depressive disorder, single episode, unspecified Status: Acute Assessment and Plan: hold home meds until pt can take PO and is more awake (5) Essential hypertension: Code(s): I10 - Essential (primary) hypertension Status: Acute Assessment and Plan: Hold all antihypertensives, currently on vasopressors (6) Effusion, pericardium: Code(s): I31.3 - Pericardial effusion (noninflammatory) Status: Acute Assessment and Plan: Small to moderate circumferential pericardial effusion without tamponade physiology on echocardiogram. 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 (7) UTI (urinary tract infection): Code(s): N39.0 - Urinary tract infection, site not specified Status: Acute Assessment and Plan: Patient with UTI, on antibiotics as above -12/29/2021: Urine cultures growing Gram negative bacilli -12/29/2021: Preliminary results for blood cultures negative x2 -12/29/2021: Bile culture, no organisms a white blood cell seen Plan DVT prophylaxis: SCDs Stress ulcer prophylaxis: Famotidine Nutrition: NPO for now 12/30: Discussed with and son and updated them with patient's condition and plan of care. I updated them regarding patient's condition, explained to them the cholecystostomy tube, I also told him that he is on vasopressors. I discussed code status to which they requested him to be a full code. Code Status: Full code Critical Care Time Spent: 34 minutes Due to a high probability of clinically significant, life threatening deterioration, the patient required my highest level of preparedness to intervene emergently and I personally spent this critical care time directly and personally managing the patient. This critical care time included obtaining a history; examining the patient; pulse oximetry; ordering and review of studies; arranging urgent treatment with development of a management plan; evaluation of patient's response to treatment; frequent reassessment; and discussions with other providers. It was exclusive of separately billable procedures and treating other patients and teaching time. Please see Assessment and Plan section and the rest of the note for further information on patient assessment and treatment Subjective Date/time seen: 12/31/21 09:56 Interval history: Reason for consult: Septic shock, acute cholecystitis, lactic acidosis, UTI, hypokalemia 12/30/2021 status post cholecystostomy tube placement 12/31/2021: Patient seen and examined this morning in the ICU, opens eyes to name but unable to answer any questions, just m
[2021-12-31] MEDS: dexmedeTOMIDine 400 MCG/100 ML 400 MCG/100 ML BAG 13.08 MCG IV CONT (10:38)
--- NOTE | 2021-12-31 11:22 | PM.PNGS ---
Progress Note: A&P Assessment and Plan (1) Septic shock: Code(s): A41.9 - Sepsis, unspecified organism; R65.21 - Severe sepsis with septic shock Status: Acute Assessment and Plan: slowly improving, wean pressors as mauricio, cont abx (2) Cholecystitis: Code(s): K81.9 - Cholecystitis, unspecified Status: Acute Assessment and Plan: good response c perc drainage and abx Subjective Subjective Date/Time Seen: 12/31/21 11:22 looks a little better today, more alert although still confused Review of Systems Review of Systems: ROS unobtainable: Yes unobtainable due to medical condition and unobtainable due to mental status Exam Const: General: alert, awake, ill appearing and tired appearing Resp: Auscultation: diminished lung sounds Cardio: Rate: regular rate Rhythm: regular rhythm GI: Inspection: normal to inspection and distended GI Palp: Yes abdominal tenderness, Yes Soft to palpation, Yes Tenderness to palpation present (GI), No Guarding due to palpation present (GI) and No Rigid due to palpation Other: perc yao - bilious drainage Objective Data Vital Signs Vital Signs: Vital Signs - 24 hr 12/30/21 11:36 12/30/21 11:46 12/30/21 12:30 Temperature Pulse Rate 84 88 89 Respiratory Rate Blood Pressure 84/52 L 122/67 116/64 Pulse Oximetry Oxygen Delivery Oxygen Flow Rate 12/30/21 12:00 12/30/21 12:00 12/30/21 12:00 Temperature 36.1 C L Pulse Rate 89 91 91 Respiratory Rate 27 H 19 Blood Pressure 112/57 L Pulse Oximetry 95 98 Oxygen Delivery Nasal Cannula Oxygen Flow Rate 2 12/30/21 13:20 12/30/21 14:00 12/30/21 15:03 Temperature 36.2 C L Pulse Rate 91 86 84 Respiratory Rate 18 Blood Pressure 88/53 L 101/59 L Pulse Oximetry 95 Oxygen Delivery Oxygen Flow Rate 12/30/21 15:25 12/30/21 15:25 12/30/21 15:40 Temperature Pulse Rate 81 81 80 Respiratory Rate Blood Pressure 101/66 101/66 110/61 Pulse Oximetry Oxygen Delivery Oxygen Flow Rate 12/30/21 16:00 12/30/21 16:00 12/30/21 16:00 Temperature 35.9 C L Pulse Rate 80 82 81 Respiratory Rate 18 15 Blood Pressure 107/61 Pulse Oximetry 95 96 Oxygen Delivery Nasal Cannula Oxygen Flow Rate 2 12/30/21 18:00 12/30/21 18:57 12/30/21 20:00 Temperature Pulse Rate 91 93 76 Respiratory Rate 21 H 18 Blood Pressure Pulse Oximetry 96 Oxygen Delivery Room Air Oxygen Flow Rate 12/30/21 20:00 12/30/21 20:00 12/30/21 20:05 Temperature 36.1 C L Pulse Rate 76 89 72 Respiratory Rate 15 14 Blood Pressure 101/61 Pulse Oximetry 96 Oxygen Delivery Oxygen Flow Rate 12/30/21 21:00 12/30/21 22:03 12/30/21 21:46 Temperature Pulse Rate 72 81 72 Respiratory Rate 14 18 Blood Pressure 112/63 Pulse Oximetry Oxygen Delivery Oxygen Flow Rate 12/30/21 22:05 12/30/21 22:00 12/30/21 23:52 Temperature Pulse Rate 71 72 72 Respiratory Rate 15 Blood Pressure 112/63 116/66 119/68 Pulse Oximetry 96 Oxygen Delivery Oxygen Flow Rate 12/30/21 23:55 12/30/21 23:55 12/31/21 00:00 Temperature Pulse Rate 72 72 73 Respiratory Rate 18 18 18 Blood Pressure Pulse Oximetry 95 Oxygen Delivery Room Air Oxygen Flow Rate 12/31/21 00:00 12/31/21 00:00 12/31/21 01:54 Temperature 36.0 C L Pulse Rate 72 72 72 Respiratory Rate 20 Blood Pressure 118/79 122/71 Pulse Oximetry 95 Oxygen Delivery Oxygen Flow Rate 12/31/21 02:00 12/31/21 03:46 12/31/21 03:59 Temperature 36.3 C L Pulse Rate 78 73 78 Respiratory Rate 20 22 H 14 Blood Pressure 98/65 L 110/69 Pulse Oximetry 96 96 95 Oxygen Delivery Room Air Oxygen Flow Rate 12/31/21 04:00 12/31/21 04:36 12/31/21 04:36 Temperature Pulse Rate 71 78 78 Respiratory Rate Blood Pressure 101/65 101/65 Pulse Oximetry Oxygen Delivery Oxygen Flow Rate 12/31/21 04:37 12/31/21 04:37 12/31/21
[2021-12-31] MEDS: SODIUM CHLORIDE 0.9% IV 250 ML 30 ML IV CONT (12:22)
[2021-12-31] MEDS: ENOXAPARIN 100 MG/ML SYRINGE SUB-Q ×2 (12:23→21:41)
[2021-12-31 12:33] LABS: Glucose Point of Care 120 mg/dl (65-105)
[2021-12-31 18:28] LABS: Glucose Point of Care 67 mg/dl (65-105)
[2021-12-31] MEDS: DEXTROSE 50% 25 GM/50 ML SYRINGE IV PUSH (18:53)
[2021-12-31 19:18] LABS: Glucose Point of Care 119 mg/dl (65-105)
[2021-12-31] MEDS: NOREPINEPHRINE 8 MG/D5W 250 ML 8 MG/250 ML BAG 5.63 MG IV CONT (21:39)
[2022-01-01] VITALS (21 sets, daily range): BP systolic 87–121; BP diastolic 52–80; PULSE 66–108; RESP 15–25; TEMP 36.1–37.4; O2SAT 90–100
[2022-01-01] MEDS: ALBUMIN HUMAN 25% 25 GM/100 ML 100 ML IVPB ×4 (00:06→20:22)
[2022-01-01 00:35] LABS: Glucose Point of Care 76 mg/dl (65-105)
[2022-01-01] MEDS: dexmedeTOMIDine 400 MCG/100 ML 400 MCG/100 ML BAG 10.46 MCG IV CONT (01:22)
[2022-01-01] MEDS: SODIUM CHLORIDE 0.9% IV 1,000 ML 100 ML IV CONT (01:24)
[2022-01-01] MEDS: CENTRAL LINE FLUSH 10 ML IV PUSH ×4 (06:01→20:26)
[2022-01-01 06:06] LABS: INR 2.5; Prothrombin Time 26.2 Seconds (11.1-14.7)
[2022-01-01 06:07] LABS: Partial Thromboplastin Time 73.1 SECONDS (22.3-36.8)
[2022-01-01 06:17] LABS: Alanine Aminotransferase 10 U/L (6-50); Albumin Level 2.9 g/dL (3.5-5.1); Alkaline Phosphatase 70 U/L (38-126); Anion Gap 9 mmol/L (8-16); Aspartate Amino Transferase 17 U/L (17-59); Bilirubin,Total 0.9 mg/dL (0.2-1.3); Blood Urea Nitrogen 11 mg/dL (9-20); Calcium 7.7 mg/dL (8.4-10.2); Carbon Dioxide 22 mmol/L (22-30); Chloride 107 mmol/L (98-107); Estimated CRCL calculation 97 ml/min; Estimated Glomerular Filt Rate > 60; Glucose 95 mg/dL (65-110); Magnesium 2.1 mg/dL (1.6-2.3); Phosphorus 2.6 mg/dL (2.5-4.5); Potassium 2.8 mmol/L (3.4-5.0); Sodium 138 mmol/L (137-145)
[2022-01-01 06:31] LABS: Vancomycin Trough 13.2 ug/mL (10.0-20.0)
[2022-01-01 07:53] LABS: Basophils Percent Auto 0.1 % (0.2-1.2); Eosinophils Absolute Auto 0.2 K/mm3 (0-0.3); Eosinophils Percent Auto 1.8 % (0-4.4); Immature Granulocyte Absolute 0.03 K/mm3 (0.00-0.031); Immature Granulocyte Percent A 0.3 % (0-0.5); Lymphocytes Absolute Auto 1.62 K/mm3 (0.9-3.2); Lymphocytes Percent Auto 14.1 % (18.3-44.2); Mean Corpuscular HGB Conc 36.8 g/dl (32-36); Mean Corpuscular Hemoglobin 34.7 pg (26-34); Mean Corpuscular Volume 94.4 fl (80-100); Mean Platelet Volume 10.4 fl (7.4-10.4); Monocytes Absolute Auto 0.7 K/mm3 (0.1-0.6); Monocytes Percent Auto 6.1 % (2.6-8.5); Neutrophils Absolute Auto 8.9 K/mm3 (1.3-6.7); Neutrophils Percent Auto 77.6 % (45.5-73.1); Platelet Count Result 184 k/mm3 (150-375); Red Blood Count 1.96 M/mm3 (4.6-6.20); Red Cell Distribution Width 22.9 % (11.5-14.5); White Blood Count 11.5 K/mm3 (4.5-10.0)
[2022-01-01 07:56] LABS: Hematocrit 18.5 % (42.0-52.0)
[2022-01-01 07:57] LABS: Hemoglobin 6.8 g/dL (14.0-18.0)
[2022-01-01] MEDS: CALCIUM GLUC 2,000 MG/NS 100ML 2,000 MG/100 ML BAG 100 MG IVPB (08:11)
[2022-01-01] MEDS: KCL 40 MEQ/WATER 100 ML 100 ML 25 ML IVPB ×2 (08:11→11:39)
[2022-01-01 08:19] LABS: Burr Cells 2+ (NORMAL); Platelet Estimate Adequate (Adequate)
[2022-01-01 08:20] LABS: Acanthocytes 1+ (NORMAL); Poikilocytosis 1+ (NORMAL); Schistocytes None Seen (NORMAL)
[2022-01-01] MEDS: MINERAL OIL/WHITE PETROLATUM OINTMENT 1 APPLIC EACH EYE ×2 (08:30→20:24)
[2022-01-01] MEDS: ENOXAPARIN 100 MG/ML SYRINGE SUB-Q (08:30)
[2022-01-01] MEDS: FAMOTIDINE 20 MG/2 ML VIAL IV PUSH (08:31)
[2022-01-01] MEDS: SODIUM CHLORIDE 0.9% IV 250 ML 30 ML IV CONT (10:38)
--- NOTE | 2022-01-01 10:46 | WPDINTPN ---
Progress Note: A&P Assessment and Plan (1) Septic shock: Code(s): A41.9 - Sepsis, unspecified organism; R65.21 - Severe sepsis with septic shock Status: Acute Assessment and Plan: Septic shock likely due to cholecystitis and UTI - RT IJ central line placed? 12/30 - continue Zosyn and vancomycin (12/30) -hold further IV fluids -Continue maintenance IV fluids -blood cultures negative till now -urine culture is growing Proteus mirabilis -lactic acid has resolved -continue Levophed, to maintain MAP? > 65 mmHg -continue albumin (2) Cholecystitis: Code(s): K81.9 - Cholecystitis, unspecified Status: Acute Assessment and Plan: Appreciate surgery evaluation and recommendation -12/30/2021:? Cholecystostomy tube was placed by interventional radiologist - cultures obtained and pending -continue antibiotics as above (3) DVT (deep venous thrombosis): Code(s): I82.409 - Acute embolism and thrombosis of unspecified deep veins of unspecified lower extremity Status: Acute Assessment and Plan: Lower extremity Dopplers are negative for DVT Continue Lovenox Eliquis is on hold (4) Major depressive disorder, single episode, unspecified: Code(s): F32.9 - Major depressive disorder, single episode, unspecified Status: Acute Assessment and Plan: Home p.o. meds on hold as patient is currently NPO (5) Effusion, pericardium: Code(s): I31.3 - Pericardial effusion (noninflammatory) Status: Acute Assessment and Plan: Small to moderate circumferential pericardial effusion without tamponade physiology on echocardiogram.? 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 On 08/11/2021. (6) UTI (urinary tract infection): Code(s): N39.0 - Urinary tract infection, site not specified Status: Acute Assessment and Plan: Urine cultures growing Proteus Currently on Zosyn (7) Anemia: Code(s): D64.9 - Anemia, unspecified Status: Acute Assessment and Plan: Patient's hemoglobin has been gradually trending down since admission. Although this could be dilutional and there is no obvious evidence of bleeding, he is on anticoagulation I will transfuse 1 unit of PRBC Hold anticoagulation at this time as lower extremity Dopplers were negative for DVT at this time Change Pepcid to PPI Check CT abdomen pelvis Monitor hemoglobin closely Check stool for occult blood (8) Electrolyte abnormality: Code(s): E87.8 - Other disorders of electrolyte and fluid balance, not elsewhere classified Status: Acute Assessment and Plan: Replace low potassium (9) Coagulopathy: Code(s): D68.9 - Coagulation defect, unspecified Status: Acute Assessment and Plan: INR 2.5 Will give vitamin K Check fibrinogen level Plan DVT prophylaxis:? SCDs Stress ulcer prophylaxis:? Famotidine Nutrition:? NPO for now. Will clamp NG tube and see how patient does Patient is full code Code Status:? Full code Critical Care Time Spent:? 40 minutes ?Due to a high probability of clinically significant, life threatening deterioration, the patient required my highest level of preparedness to intervene emergently and I personally spent this critical care time directly and personally managing the patient. This critical care time included obtaining a history; examining the patient; pulse oximetry; ordering and review of studies; arranging urgent treatment with development of a management plan; evaluation of patient's response to treatment; frequent reassessment; and discussions with other providers. It was exclusive of separately billable procedures and treating other patients and teaching time. Please see Assessment and Plan section and the rest of the note for further information on patient assessment and treatment Subjective Date/time seen: 01/01/22 10:46 Patient continues to be pleasantly confused. He mumbles
[2022-01-01] MEDS: PHYTONADIONE INJ 10 MG/ML AMP IM (11:39)
--- NOTE | 2022-01-01 11:41 | PM.PNGS ---
Progress Note: A&P Assessment and Plan (1) Cholecystitis: Code(s): K81.9 - Cholecystitis, unspecified Status: Acute Assessment and Plan: S/p perc yao tube on 12/30 and improving. Bile cx pending. WBC trending down. Continue IV antibiotics. (2) Septic shock: Code(s): A41.9 - Sepsis, unspecified organism; R65.21 - Severe sepsis with septic shock Status: Acute Assessment and Plan: Continues to slowly improve, off vasopressors, continue medical management per [employer] (3) Anemia: Code(s): D64.9 - Anemia, unspecified Status: Acute Assessment and Plan: Hgb trending down since admission and down to 6.8 today. 1unit PRBCs ordered. Cholecystostomy tube drainage is slightly red-tinged but with minimal output. Continue to monitor drainage. Agree with holding his Lovenox for now. CT a/p also ordered, will await results. Plan I have discussed the patient's case and plan of care with Dr. Cornelius. Subjective Subjective Date/Time Seen: 01/01/22 11:41 Patient reports: afebrile Interval history: Patient pleasantly confused. He is a poor historian. Chart reviewed. He denies any abdominal pain at this time. No longer on vasopressors. Review of Systems Review of Systems: ROS unobtainable: Yes unobtainable due to mental status Exam Const: General: awake and ill appearing acutely Orientation/consciousness: oriented to person, No oriented to place, No oriented to time and confusion GI: Inspection: non-distended, obesity and other (cholecystostomy tube with dark brown/red drainage) GI Palp: Yes Soft to palpation, No Tenderness to palpation present (GI), No Guarding due to palpation present (GI) and No Rebound tenderness present Auscultation: Hypoactive bowel sounds present Other: perc yao - bilious drainage Objective Data Vital Signs Vital Signs: Vital Signs - 24 hr 12/31/21 12:32 12/31/21 12:00 12/31/21 12:00 Temperature 96.2 F L Pulse Rate 86 98 92 Respiratory Rate 18 Blood Pressure 129/75 133/83 Pulse Oximetry 92 Oxygen Delivery Oxygen Flow Rate 12/31/21 12:00 12/31/21 14:03 12/31/21 14:00 Temperature Pulse Rate 87 87 Respiratory Rate Blood Pressure 129/75 Pulse Oximetry Oxygen Delivery Room Air Oxygen Flow Rate 12/31/21 14:00 12/31/21 15:39 12/31/21 15:48 Temperature 96.0 F L Pulse Rate 87 96 98 Respiratory Rate 19 27 H Blood Pressure 129/75 122/77 Pulse Oximetry 97 Oxygen Delivery Oxygen Flow Rate 12/31/21 16:00 12/31/21 16:00 12/31/21 16:20 Temperature 97.0 F L Pulse Rate 97 107 H Respiratory Rate 20 21 H Blood Pressure 86/72 L Pulse Oximetry 94 Oxygen Delivery Room Air Oxygen Flow Rate 12/31/21 17:10 12/31/21 17:46 12/31/21 16:00 Temperature Pulse Rate 92 96 98 Respiratory Rate 28 H 21 H Blood Pressure Pulse Oximetry Oxygen Delivery Oxygen Flow Rate 12/31/21 18:00 12/31/21 18:00 12/31/21 20:17 Temperature Pulse Rate 87 98 84 Respiratory Rate 20 Blood Pressure 95/63 L 108/62 Pulse Oximetry 96 Oxygen Delivery Oxygen Flow Rate 12/31/21 20:18 12/31/21 20:00 12/31/21 20:00 Temperature Pulse Rate 83 82 Respiratory Rate 20 Blood Pressure Pulse Oximetry Oxygen Delivery Room Air Oxygen Flow Rate 12/31/21 20:00 12/31/21 21:39 12/31/21 21:39 Temperature 97.5 F L Pulse Rate 82 81 81 Respiratory Rate 20 Blood Pressure 95/58 L 103/56 L 103/56 L Pulse Oximetry 94 Oxygen Delivery Oxygen Flow Rate 12/31/21 22:00 01/01/22 00:00 01/01/22 00:00 Temperature Pulse Rate 75 71 Respiratory Rate 18 Blood Pressure 101/61 Pulse Oximetry 92 Oxygen Delivery Room Air Oxygen Flow Rate 01/01/22 00:00 01/01/22 01:22 01/01/22 01:22 Temperature 96.9 F L Pulse Rate 71 74 74 Respiratory Rate 20 20 20 Blood Pressure 104/79 Pulse Oximetry 91 Oxygen Delivery Oxygen Flow
[2022-01-01 11:57] LABS: Glucose Point of Care 75 mg/dl (65-105)
[2022-01-01 14:12] LABS: Hematocrit 23.6 % (42.0-52.0); Hemoglobin 8.7 g/dL (14.0-18.0); Mean Corpuscular HGB Conc 36.9 g/dl (32-36); Mean Corpuscular Volume 92.2 fl (80-100); Platelet Count Result 180 k/mm3 (150-375); Red Blood Count 2.56 M/mm3 (4.6-6.20); Red Cell Distribution Width 21.2 % (11.5-14.5); White Blood Count 15.3 K/mm3 (4.5-10.0)
[2022-01-01 14:24] LABS: Fibrinogen 471 mg/dl (215-510)
[2022-01-01] MEDS: FUROSEMIDE INJ 40 MG/4 ML VIAL IV PUSH (15:13)
--- NOTE | 2022-01-01 17:04 | PM.IMPN ---
Progress Note: A&P Assessment and Plan (1) Sepsis: Code(s): A41.9 - Sepsis, unspecified organism Status: Acute Assessment and Plan: 01/01/2022 interval history: Patient with septic shock most likely 2/2 UTI and cholescystitis being treated with Zosyn and vancomycin, and being hydrated, s/p cholecystostomy tube placed by IR on 12/30, now with NG tube, patient is somnolent unable to provider detail ROS, patient is surgery service recommending conservative mangement, patient is seen by inspector water pollution control off pressors, and appreciate, will continue to follow the patient. (2) Cholecystitis: Code(s): K81.9 - Cholecystitis, unspecified Status: Acute Assessment and Plan: seen by surgery service recommended percutaneous cholecystostomy, until sepsis is resolved (3) Pericardial effusion: Code(s): I31.3 - Pericardial effusion (noninflammatory) Status: Acute Assessment and Plan: clinically stable (4) Essential hypertension: Code(s): I10 - Essential (primary) hypertension Status: Acute Assessment and Plan: septic shock hypotensive (5) Coronary artery disease: Code(s): I25.10 - Atherosclerotic heart disease of [place] coronary artery without angina pectoris Status: Acute Assessment and Plan: remains clinically stable (6) DVT (deep venous thrombosis): Code(s): I82.409 - Acute embolism and thrombosis of unspecified deep veins of unspecified lower extremity Status: Acute Assessment and Plan: anticoagulation on hold (7) PAD (peripheral artery disease): Code(s): I73.9 - Peripheral vascular disease, unspecified Status: Acute (8) Elevated troponin: Code(s): R77.8 - Other specified abnormalities of plasma proteins Status: Acute (9) Major depressive disorder, single episode, unspecified: Code(s): F32.9 - Major depressive disorder, single episode, unspecified Status: Acute (10) Hypertension: Code(s): I10 - Essential (primary) hypertension Status: Acute Subjective Date/time seen: 01/01/22 17:04 01/01/2022 interval history: Patient with septic shock most likely 2/2 UTI and cholescystitis being treated with Zosyn and vancomycin, and being hydrated, s/p cholecystostomy tube placed by IR on 12/30, now with NG tube, patient is somnolent unable to provider detail ROS, patient is surgery service recommending conservative mangement, patient is seen by inspector water pollution control off pressors, and appreciate, will continue to follow the patient. Review of Systems Review of Systems: ROS unobtainable: Yes unobtainable due to medical condition Exam Narrative: Patient is comfortable, NAD HEENT: eyes are clear and none icteric LUNGS: normal respiratory effort ABD: not distended Lower extremities: no edema SKIN: nonjaundiced Neuro: grossly intact. Objective Data Vital Signs Vital Signs: Vital Signs - 24 hr 12/31/21 17:10 12/31/21 17:46 12/31/21 18:00 Temperature Pulse Rate 92 96 87 Respiratory Rate 28 H 21 H Blood Pressure Pulse Oximetry Oxygen Delivery Oxygen Flow Rate 12/31/21 18:00 12/31/21 20:17 12/31/21 20:18 Temperature Pulse Rate 98 84 83 Respiratory Rate 20 20 Blood Pressure 95/63 L 108/62 Pulse Oximetry 96 Oxygen Delivery Oxygen Flow Rate 12/31/21 20:00 12/31/21 20:00 12/31/21 20:00 Temperature 97.5 F L Pulse Rate 82 82 Respiratory Rate 20 Blood Pressure 95/58 L Pulse Oximetry 94 Oxygen Delivery Room Air Oxygen Flow Rate 12/31/21 21:39 12/31/21 21:39 12/31/21 22:00 Temperature Pulse Rate 81 81 75 Respiratory Rate 18 Blood Pressure 103/56 L 103/56 L 101/61 Pulse Oximetry 92 Oxygen Delivery Oxygen Flow Rate 01/01/22 00:00 01/01/22 00:00 01/01/22 00:00 Temperature 96.9 F L Pulse Rate 71 71 Respiratory Rate 20 Blood Pressure 104/79 Pulse Oximetry 91 Oxygen Delivery Room Air Oxyge
[2022-01-01 17:30] LABS: Anion Gap 12 mmol/L (8-16); Blood Urea Nitrogen 9 mg/dL (9-20); Calcium 8.7 mg/dL (8.4-10.2); Carbon Dioxide 22 mmol/L (22-30); Chloride 105 mmol/L (98-107); Estimated CRCL calculation 97 ml/min; Estimated Glomerular Filt Rate > 60; Glucose 81 mg/dL (65-110); Potassium 3.6 mmol/L (3.4-5.0); Sodium 139 mmol/L (137-145)
[2022-01-01] MEDS: PANTOPRAZOLE SODIUM IV 40 MG VIAL IV PUSH (20:24)
[2022-01-02] VITALS (15 sets, daily range): BP systolic 90–132; BP diastolic 63–83; PULSE 94–112; RESP 18–22; TEMP 36.6–37.6; O2SAT 88–100
[2022-01-02] MEDS: DEXTROSE 50% 25 GM/50 ML SYRINGE IV PUSH ×2 (00:19→19:24)
[2022-01-02 00:22] LABS: Glucose Point of Care 66 mg/dl (65-105)
[2022-01-02 00:41] LABS: Glucose Point of Care 80 mg/dl (65-105)
[2022-01-02] MEDS: ALBUMIN HUMAN 25% 25 GM/100 ML 100 ML IVPB ×4 (03:05→20:35)
[2022-01-02 05:12] LABS: INR 2.1; Prothrombin Time 22.5 Seconds (11.1-14.7)
[2022-01-02] MEDS: CENTRAL LINE FLUSH 10 ML IV PUSH ×4 (05:13→20:37)
[2022-01-02 05:14] LABS: Partial Thromboplastin Time 56.8 SECONDS (22.3-36.8)
[2022-01-02 05:34] LABS: Alanine Aminotransferase 10 U/L (6-50); Albumin Level 3.9 g/dL (3.5-5.1); Alkaline Phosphatase 76 U/L (38-126); Anion Gap 14 mmol/L (8-16); Aspartate Amino Transferase 17 U/L (17-59); Bilirubin,Total 1.9 mg/dL (0.2-1.3); Blood Urea Nitrogen 8 mg/dL (9-20); Calcium 8.6 mg/dL (8.4-10.2); Carbon Dioxide 26 mmol/L (22-30); Chloride 100 mmol/L (98-107); Estimated CRCL calculation 85 ml/min; Estimated Glomerular Filt Rate > 60; Glucose 88 mg/dL (65-110); Magnesium 1.9 mg/dL (1.6-2.3); Phosphorus 2.4 mg/dL (2.5-4.5); Potassium 2.7 mmol/L (3.4-5.0); Sodium 140 mmol/L (137-145)
[2022-01-02 06:39] LABS: Basophils Percent Auto 0.2 % (0.2-1.2); Eosinophils Absolute Auto 0.1 K/mm3 (0-0.3); Eosinophils Percent Auto 0.9 % (0-4.4); Hematocrit 23.1 % (42.0-52.0); Hemoglobin 8.1 g/dL (14.0-18.0); Immature Granulocyte Absolute 0.08 K/mm3 (0.00-0.031); Immature Granulocyte Percent A 0.6 % (0-0.5); Lymphocytes Absolute Auto 2.14 K/mm3 (0.9-3.2); Lymphocytes Percent Auto 15.7 % (18.3-44.2); Mean Corpuscular HGB Conc 35.1 g/dl (32-36); Mean Corpuscular Hemoglobin 31.4 pg (26-34); Mean Corpuscular Volume 89.5 fl (80-100); Mean Platelet Volume 10.3 fl (7.4-10.4); Monocytes Percent Auto 7.6 % (2.6-8.5); Neutrophils Absolute Auto 10.2 K/mm3 (1.3-6.7); Platelet Count Result 199 k/mm3 (150-375); Red Blood Count 2.58 M/mm3 (4.6-6.20); Red Cell Distribution Width 21.2 % (11.5-14.5); White Blood Count 13.6 K/mm3 (4.5-10.0)
[2022-01-02] MEDS: KCL 40 MEQ/WATER 100 ML 100 ML 25 ML IVPB (06:45)
[2022-01-02] MEDS: MINERAL OIL/WHITE PETROLATUM OINTMENT 1 APPLIC EACH EYE (08:20)
[2022-01-02] MEDS: PANTOPRAZOLE SODIUM IV 40 MG VIAL IV PUSH ×2 (08:20→20:37)
--- NOTE | 2022-01-02 09:52 | WPDINTPN ---
Progress Note: A&P Assessment and Plan (1) Septic shock: Code(s): A41.9 - Sepsis, unspecified organism; R65.21 - Severe sepsis with septic shock Status: Acute Assessment and Plan: Septic shock likely due to cholecystitis and UTI - RT IJ central line placed? 12/30 - continue Zosyn (12/30) discontinue vancomycin 01/02 -hold further IV fluids as patient was given dose of Lasix yesterday -off vasopressor -blood cultures negative till now -urine culture is growing Proteus mirabilis -lactic acid has resolved -continue Levophed if needed to maintain MAP? > 65 mmHg -continue albumin (2) Cholecystitis: Code(s): K81.9 - Cholecystitis, unspecified Status: Acute Assessment and Plan: Appreciate surgery evaluation and recommendation -12/30/2021:? Cholecystostomy tube was placed by interventional radiologist. It is not draining significant amount. CT scan done yesterday shows persistently distended gallbladder. I have discussed with Dr. Grossman with intervention Radiology regarding changing the back to suction bulb. He states that he will review and get back to me. - cultures obtained and negative till now -continue Zosyn. Change dose to 4.5 g IV Q 6 hours -DC vancomycin (3) DVT (deep venous thrombosis): Code(s): I82.409 - Acute embolism and thrombosis of unspecified deep veins of unspecified lower extremity Status: Acute Assessment and Plan: Lower extremity Dopplers are negative for DVT (4) Major depressive disorder, single episode, unspecified: Code(s): F32.9 - Major depressive disorder, single episode, unspecified Status: Acute Assessment and Plan: Home p.o. meds on hold as patient is currently NPO (5) Effusion, pericardium: Code(s): I31.3 - Pericardial effusion (noninflammatory) Status: Acute Assessment and Plan: Small to moderate circumferential pericardial effusion without tamponade physiology on echocardiogram.? 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 On 08/11/2021. (6) UTI (urinary tract infection): Code(s): N39.0 - Urinary tract infection, site not specified Status: Acute Assessment and Plan: Urine cultures growing Proteus Currently on Zosyn (7) Anemia: Code(s): D64.9 - Anemia, unspecified Status: Acute Assessment and Plan: Patient's hemoglobin has been gradually trending down since admission. Although this could be dilutional and there is no obvious evidence of bleeding, he is on anticoagulation 01/01 patient was transfused1 unit of PRBC, anticoagulation was held since his lower extremity Dopplers were negative for DVT at this time Pepcid changed to PPI Repeat CT abdomen pelvis was done which did not show any hematoma or bleeding Continue to monitor hemoglobin closely stool for occult blood is positive Consult GI (8) Electrolyte abnormality: Code(s): E87.8 - Other disorders of electrolyte and fluid balance, not elsewhere classified Status: Acute Assessment and Plan: Replace low potassium (9) Coagulopathy: Code(s): D68.9 - Coagulation defect, unspecified Status: Acute Assessment and Plan: 01/01 patient was given 10 mg of vitamin K Normal fibrinogen level Plan DVT prophylaxis:? SCDs Stress ulcer prophylaxis:? Famotidine Nutrition:? NPO for now. NG tube is clamped. Consult speech therapy for bedside swallow evaluation Code Status:? Full code Critical Care Time Spent:? 35 minutes ?Due to a high probability of clinically significant, life threatening deterioration, the patient required my highest level of preparedness to intervene emergently and I personally spent this critical care time directly and personally managing the patient. This critical care time included obtaining a history; examining the patient; pulse oximetry; ordering and review of studies; arranging urgent treatment with development of a management plan;
[2022-01-02 09:53] LABS: IFOB Positive Control Positive; Immunochemical Fecal Occult Bl Positive (N)
--- NOTE | 2022-01-02 10:25 | PC.NURSE ---
Addendum entered by Ivelisse Cano RN 01/02/22 10:33: 1025: Hazel Petit NP with surgery, informed of findings with the percutaneous drain. This RN informed her that pt's IFOB came back positive for occult blood, and GI has been consulted. This RN also updated her with swallow study findings. DARLYN Oliva recommends, from surgical stand point, to start diet once pt is cleared by GI. Please start patient on clear liquids advance as tolerated to diabetic low fat diet . Original Note: 1010: Pt passed swallow study per ST. ST recommends pureed diet due to pt not having any teeth. 1015: Dr. Grossmna at bedside to assess percutaneous drain. Dr. Grossman flushed and aspirated drain. States Even with flushing and aspirating; it's still having resistance. Pt will need tube replaced. Order placed by this RN 1020: Dr Carter notified of findings and new orders from Dr. Grossman. 1025: Hazel Petit NP with surgery, informed of findings with the percutaneous drain. This RN alsoinformed her that pt's stool came back positive for occult blood , and GI is consulted. This RN also updated her with swallow study findings. DARLYN Oliva recommends ,from surgical stand point, to start diet once pt is cleared by GI. Start patient on clear liquids advance as tolerated to diabetic low fat diet.
--- NOTE | 2022-01-02 10:38 | PCSTNOTE ---
On 01/02/22, the student, Ilana Burnham, provided care and completed [facility] documentation on this patient. I have reviewed the student's documentation and agree with the findings.
[2022-01-02] MEDS: POTASSIUM PHOS,M-BASIC-D-BASIC 20 MMOL in SODIUM CHLORIDE 0.9% IV 250 ML 64.17 MMOL IVPB (10:50)
--- NOTE | 2022-01-02 11:21 | PM.PNGS ---
Progress Note: A&P Assessment and Plan (1) Cholecystitis: Code(s): K81.9 - Cholecystitis, unspecified Status: Acute Assessment and Plan: S/p perc yao tube on 12/30, bile cx pending. Yao tube now clogged with bloody drainage, Radiologist evaluated the patient and is planning to exchange the yao tube in Radiology today. WBC trending down. Continue IV antibiotics. (2) Septic shock: Code(s): A41.9 - Sepsis, unspecified organism; R65.21 - Severe sepsis with septic shock Status: Acute Assessment and Plan: Continues to slowly improve, off vasopressors, continue medical management per Air Conditioning Engineer (3) Anemia: Code(s): D64.9 - Anemia, unspecified Status: Acute Assessment and Plan: Received 1 unit PRBC yesterday. Hgb 8.1 today. Stool occult positive. GI has been consulted. Plan I have discussed the patient's case and plan of care with Dr. Cornelius. Subjective Subjective Date/Time Seen: 01/02/22 10:51 Patient reports: afebrile Interval history: Patient seen and examined. Patient remains confused but is able to answer simple questions. Nurse at bedside and reports his NG has been clamped overnight with no nausea or vomiting. The patient denies any abdominal pain or nausea at this time. He is having leg cramps, but his potassium is noted to be low and he is receiving IV replacement. Minimal output from perc yao overnight, 10 cc. Review of Systems Review of Systems: ROS unobtainable: Yes unobtainable due to mental status Exam Const: General: awake and ill appearing acutely Orientation/consciousness: oriented to person, No oriented to place, No oriented to time and confusion GI: Inspection: obesity Auscultation: Hypoactive bowel sounds present Other: cholecystostomy tube with thick dark brown/red drainage in tubing, none in bag, stripped tubing without any further output into drainage bag Urinary Catheter: Urinary Catheter: patent and draining and urine clear Objective Data Vital Signs Vital Signs: Vital Signs - 24 hr 01/01/22 12:00 01/01/22 12:00 01/01/22 12:00 Temperature 97.9 F Pulse Rate 99 99 99 Respiratory Rate 25 H 25 H Blood Pressure 106/67 Pulse Oximetry 100 100 Oxygen Delivery Nasal Cannula Oxygen Flow Rate 3 01/01/22 14:00 01/01/22 14:00 01/01/22 12:09 Temperature 98 F Pulse Rate 101 H 101 H 99 Respiratory Rate 20 21 H Blood Pressure 104/73 105/72 Pulse Oximetry 100 100 Oxygen Delivery Oxygen Flow Rate 01/01/22 13:09 01/01/22 16:00 01/01/22 16:00 Temperature 97.9 F 97.7 F Pulse Rate 97 108 H 106 H Respiratory Rate 23 H 19 Blood Pressure 121/80 120/71 Pulse Oximetry 99 100 Oxygen Delivery Oxygen Flow Rate 01/01/22 16:00 01/01/22 18:00 01/01/22 18:00 Temperature Pulse Rate 106 H 101 H 101 H Respiratory Rate 19 20 Blood Pressure 112/60 Pulse Oximetry 100 99 Oxygen Delivery Room Air Oxygen Flow Rate 01/01/22 20:00 01/01/22 20:00 01/01/22 20:00 Temperature 99.4 F Pulse Rate 107 H 107 H 107 H Respiratory Rate 21 H 21 H Blood Pressure 96/62 L Pulse Oximetry 99 99 Oxygen Delivery Room Air Oxygen Flow Rate 01/01/22 22:00 01/01/22 22:00 01/02/22 00:00 Temperature 99.0 F Pulse Rate 103 H 103 H 105 H Respiratory Rate 20 20 Blood Pressure 112/72 132/78 Pulse Oximetry 100 98 Oxygen Delivery Oxygen Flow Rate 01/02/22 00:00 01/02/22 00:00 01/02/22 02:00 Temperature Pulse Rate 105 H 107 H Respiratory Rate Blood Pressure Pulse Oximetry Oxygen Delivery Room Air Oxygen Flow Rate 01/02/22 02:00 01/02/22 03:55 01/02/22 04:00 Temperature Pulse Rate 107 H Respiratory Rate 22 H Blood Pressure 124/83 Pulse Oximetry 98 88 L 100 Oxygen Delivery Room Air Nasal Cannula Oxygen Flow Rate 2 01/02/22 04:00 01/02/22 04:00 01/02/22 06:00 Temperature 98.5 F Pulse Rate 95 95 102 H Respiratory Rate 18 Blood Press
[2022-01-02] MEDS: PIPERACILLIN/TAZOBACTAM SOD 4.5 GM in SODIUM CHLORIDE 0.9% IV 100 ML 200 ML IVPB ×2 (11:54→18:50)
[2022-01-02 12:33] LABS: Glucose Point of Care 81 mg/dl (65-105)
--- NOTE | 2022-01-02 14:55 | PM.IMPN ---
Progress Note: A&P Assessment and Plan (1) Sepsis: Code(s): A41.9 - Sepsis, unspecified organism Status: Acute Assessment and Plan: 01/02/2022 interval history: Patient with septic shock most likely 2/2 UTI and cholescystitis being treated with Zosyn and vancomycin, and being hydrated, s/p cholecystostomy tube placed by IR on 12/30, today the tube is clogged and IR will replace the tube today, patient clinicall sympotms are improving, Bile culture is pending, urine cultue is growing Proteus Mir[employer] mills sensitive,being treated with Zosyn and vancomcin, white counts are tending down and fever, now with NG tube, patient is somnolent unable to provider detail ROS, patient is surgery service recommending conservative management, patient is seen by nursing home manager off pressors, and appreciate, will continue to follow the patient. (2) Cholecystitis: Code(s): K81.9 - Cholecystitis, unspecified Status: Acute Assessment and Plan: seen by surgery service recommended percutaneous cholecystostomy, until sepsis is resolved (3) Pericardial effusion: Code(s): I31.3 - Pericardial effusion (noninflammatory) Status: Acute Assessment and Plan: clinically stable (4) Essential hypertension: Code(s): I10 - Essential (primary) hypertension Status: Acute Assessment and Plan: septic shock hypotensive (5) Coronary artery disease: Code(s): I25.10 - Atherosclerotic heart disease of [place] coronary artery without angina pectoris Status: Acute Assessment and Plan: remains clinically stable (6) DVT (deep venous thrombosis): Code(s): I82.409 - Acute embolism and thrombosis of unspecified deep veins of unspecified lower extremity Status: Acute Assessment and Plan: anticoagulation on hold (7) PAD (peripheral artery disease): Code(s): I73.9 - Peripheral vascular disease, unspecified Status: Acute (8) Elevated troponin: Code(s): R77.8 - Other specified abnormalities of plasma proteins Status: Acute (9) Major depressive disorder, single episode, unspecified: Code(s): F32.9 - Major depressive disorder, single episode, unspecified Status: Acute (10) Hypertension: Code(s): I10 - Essential (primary) hypertension Status: Acute Subjective Date/time seen: 01/02/22 14:55 01/02/2022 interval history: Patient with septic shock most likely 2/2 UTI and cholescystitis being treated with Zosyn and vancomycin, and being hydrated, s/p cholecystostomy tube placed by IR on 12/30, today the tube is clogged and IR will replace the tube today, patient clinicall sympotms are improving, Bile culture is pending, urine cultue is growing Prote[employer] Mir[employer] mills sensitive,being treated with Zosyn and vancomcin, white counts are tending down and fever, now with NG tube, patient is somnolent unable to provider detail ROS, patient is surgery service recommending conservative management, patient is seen by nursing home manager off pressors, and appreciate, will continue to follow the patient. Review of Systems Review of Systems: ROS unobtainable: Yes unobtainable due to medical condition Exam Narrative: Patient is comfortable, NAD HEENT: eyes are clear and none icteric LUNGS: normal respiratory effort ABD: not distended Lower extremities: no edema SKIN: nonjaundiced Neuro: grossly intact. Objective Data Vital Signs Vital Signs: Vital Signs - 24 hr 01/01/22 16:00 01/01/22 16:00 01/01/22 16:00 Temperature 97.7 F Pulse Rate 108 H 106 H 106 H Respiratory Rate 19 19 Blood Pressure 120/71 Pulse Oximetry 100 100 Oxygen Delivery Room Air Oxygen Flow Rate 01/01/22 18:00 01/01/22 18:00 01/01/22 20:00 Temperature Pulse Rate 101 H 101 H 107 H Respiratory Rate 20 Blood Pressure 112/60 Pulse Oximetry 99 Oxygen Delivery Oxygen Flow Rate 01/01/22 20:00 01/01/22 20:00 01/01/22 22:00 Huey
--- NOTE | 2022-01-02 15:11 | WPDGICN ---
Assessment and Plan Assessment and plan (1) Cholecystitis: Code(s): K81.9 - Cholecystitis, unspecified Status: Acute Assessment and Plan: Patient with cholecystitis currently followed by surgical service current management with antibiotics and cholecystotomy tube. Patient appears to have multiple comorbid diseases including obesity and mental status changes. (2) Anemia: Code(s): D64.9 - Anemia, unspecified Status: Acute Assessment and Plan: I am asked see patient because of anemia. No obvious signs of GI blood loss encountered at this time. Although stool occult blood positive. Patient does have features of DIC with elevated prothrombin time coagulopathy and decline in hemoglobin. At the present time I would defer invasive testing such as endoscopy given his profound coagulopathy. Will manage conservatively. Presumptive diagnosis of stress ulcer or gastritis is also possible and will cover patient with PPI at this time. We will follow with you conservatively for now. (3) Sepsis: Code(s): A41.9 - Sepsis, unspecified organism Status: Acute (4) Coagulopathy: Code(s): D68.9 - Coagulation defect, unspecified Status: Acute Assessment and Plan: Patient's prothrombin time and INR are elevated concern over possible DIC. I have discussed this with primary care service we will follow conservatively and not plan invasive testing until this is stabilized. Since no active bleeding identified will treat for presumptive diagnosis of stress ulceration or gastritis follow with you at this time. (5) Morbid obesity due to excess calories: Code(s): E66.01 - Morbid (severe) obesity due to excess calories Status: Acute GI Consult Note Consult date/time: 01/02/22 15:11 Reason for consult: Anemia and occult blood in stool. HPI: Juan Pablo Almaraz is a 71 year old male jail patient on anticoagulation Eliquis because of history of DVTs. Patient admitted to the hospital 12/29/2021 with sepsis and acute cholecystitis. He had cholecystotomy tube placed by Radiology under surgical direction. Currently on broad-spectrum antibiotic coverage. Patient did have significant nausea vomiting at time of admission an NG tube was placed. No obvious bleeding has been noted however hemoglobin has declined in stool found to be Hemoccult positive. No blood was noted in emesis. Patient has developed DIC with elevated prothrombin time and coagulopathy. He is unable to give any useful history of present because of mental status. Currently only alert and oriented x1. Review of Systems Review of Systems: Review of systems unobtainable ROS unobtainable: Yes unobtainable due to mental status PMFSH Past Medical History Medical History Coronary artery disease DVT (deep venous thrombosis) Effusion, pericardium Essential hypertension History of GI bleed History of TIA (transient ischemic attack) Morbid obesity due to excess calories PAD (peripheral artery disease) Surgical History Surgical History History of ankle surgery Family History Family History Father Family history of malignant neoplasm Mother Family history of heart disease in male family member before age 55 Hypertension Family history of cardiovascular disease Social History Social History Social History: the patient is from [facility] it is noted that he does not smoke. He is listed as being . He is retired. 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 He has a Jen white listed as a child. Code status full code Smoking status: Never smoker Second hand tobacco smoke exposure: Yes Alcohol intake: never Substance use: never Spiritual
[2022-01-02 19:24] LABS: Glucose Point of Care 70 mg/dl (65-105)
[2022-01-02 19:47] LABS: Glucose Point of Care 90 mg/dl (65-105)
[2022-01-02] MEDS: ACETAMINOPHEN ELIXIR 325 MG/10.15 ML UDC 650 MG PO (20:35)
[2022-01-02 20:47] LABS: Glucose Point of Care 103 mg/dl (65-105)
[2022-01-03] VITALS (15 sets, daily range): BP systolic 111–148; BP diastolic 60–83; PULSE 85–107; RESP 15–21; TEMP 36.4–37.6; O2SAT 97–100
[2022-01-03 00:05] LABS: Glucose Point of Care 96 mg/dl (65-105)
[2022-01-03] MEDS: PIPERACILLIN/TAZOBACTAM SOD 4.5 GM in SODIUM CHLORIDE 0.9% IV 100 ML 200 ML IVPB ×5 (00:34→23:36)
[2022-01-03] MEDS: ALBUMIN HUMAN 25% 25 GM/100 ML 100 ML IVPB ×4 (03:00→20:06)
[2022-01-03 04:56] LABS: Hemoglobin 7.5 g/dL (14.0-18.0); Mean Corpuscular HGB Conc 36.8 g/dl (32-36); Mean Corpuscular Hemoglobin 34.4 pg (26-34); Mean Corpuscular Volume 93.6 fl (80-100); Mean Platelet Volume 9.3 fl (7.4-10.4); Platelet Count Result 168 k/mm3 (150-375); Red Blood Count 2.18 M/mm3 (4.6-6.20); Red Cell Distribution Width 23.7 % (11.5-14.5); White Blood Count 9.9 K/mm3 (4.5-10.0)
[2022-01-03 05:17] LABS: INR 1.8; Prothrombin Time 20.3 Seconds (11.1-14.7)
[2022-01-03 05:18] LABS: Partial Thromboplastin Time 48.7 SECONDS (22.3-36.8)
[2022-01-03 05:20] LABS: Alanine Aminotransferase 10 U/L (6-50); Albumin Level 4.1 g/dL (3.5-5.1); Alkaline Phosphatase 58 U/L (38-126); Anion Gap 16 mmol/L (8-16); Aspartate Amino Transferase 18 U/L (17-59); Bilirubin,Total 2.3 mg/dL (0.2-1.3); Blood Urea Nitrogen 7 mg/dL (9-20); Calcium 8.5 mg/dL (8.4-10.2); Carbon Dioxide 26 mmol/L (22-30); Chloride 102 mmol/L (98-107); Estimated CRCL calculation 83 ml/min; Estimated Glomerular Filt Rate > 60; Glucose 99 mg/dL (65-110); Hematocrit 20.4 % (42.0-52.0); Magnesium 1.9 mg/dL (1.6-2.3); Phosphorus 3.4 mg/dL (2.5-4.5); Potassium 2.7 mmol/L (3.4-5.0); Sodium 144 mmol/L (137-145)
[2022-01-03 05:27] LABS: Band Neutrophils Percent 2 % (0-6); Lymphocytes Absolute Manual 3.76 K/mm3 (1.1-4.5); Metamyelocytes Percent 1 %; Monocytes Absolute Manual 0.19 K/mm3 (0.1-0.90); Monocytes Percent Manual 2 % (3-9); Neutrophils Absolute Manual 5.74 K/mm3 (1.3-6.7); Neutrophils Percent Manual 56 % (46-73); Platelet Estimate Adequate (Adequate); Promyelocytes Percent 1 %; Total Cells Counted 100
[2022-01-03 05:28] LABS: Anisocytosis 2+ (NORMAL); Macrocytosis 2+ (NORMAL); Microcytosis 1+ (NORMAL); Ovalocytes 1+ (NORMAL); Platelet Clumps Present; Poikilocytosis 2+ (NORMAL); Schistocytes 2+ (NORMAL)
[2022-01-03 05:29] LABS: Acanthocytes 1+ (NORMAL); Atypical Lymphocytes Present; Burr Cells 1+ (NORMAL); Crenated RBC 1+ (NORMAL); Hyperchromasia 1+ (NORMAL); Hypochromasia 2+ (NORMAL)
[2022-01-03] MEDS: CENTRAL LINE FLUSH 10 ML IV PUSH ×4 (06:06→20:06)
[2022-01-03] MEDS: KCL 40 MEQ/WATER 100 ML 100 ML 25 ML IVPB (06:06)
[2022-01-03 06:14] LABS: Glucose Point of Care 95 mg/dl (65-105)
--- NOTE | 2022-01-03 06:15 | PC.NURSE ---
0530 Lab called with potassium of 2.7 and hct 20.4. Called both results to Dr. Sanchez. Orders received for 40mEq KCL IV x 1.
--- NOTE | 2022-01-03 07:55 | WPDGIPROGNO ---
Progress Note: A&P Assessment and Plan (1) Anemia: Code(s): D64.9 - Anemia, unspecified Status: Acute Assessment and Plan: Patient with decline in hemoglobin. Currently hemoglobin 7.5 hematocrit 20. No obvious bleeding reported. Stool Hemoccult reported positive yesterday. Suspect this is hematologic etiology. He may require transfusion. Elevated INR noted but has improved. I cannot exclude DIC or hemolysis. LDH was elevated several days ago. Bilirubin also elevated. However potassium low I am uncertain whether in mouth this is present. May benefit from hematology opinion. Plan to defer invasive testing such as endoscopy present given patient's tenuous clinical condition. no signs for obvious GI bleeding at this point. (2) Coagulopathy: Code(s): D68.9 - Coagulation defect, unspecified Status: Acute Assessment and Plan: Coagulation profile improving but still modestly elevated INR. (3) Electrolyte abnormality: Code(s): E87.8 - Other disorders of electrolyte and fluid balance, not elsewhere classified Status: Acute Assessment and Plan: Potassium remains low 2.7 despite potassium supplementation. Continue to replace monitor. (4) UTI (urinary tract infection): Code(s): N39.0 - Urinary tract infection, site not specified Status: Acute (5) Sepsis: Code(s): A41.9 - Sepsis, unspecified organism Status: Acute (6) Cholecystitis: Code(s): K81.9 - Cholecystitis, unspecified Status: Acute (7) Confusion: Code(s): R41.0 - Disorientation, unspecified Status: Acute Subjective Date/time seen: 01/03/22 07:55 Patient remains in ICU bed but now in IMU patient. He remains confused unable to give any useful history. Nursing staff reports no bleeding. Patient tolerating diet at this point. NG tube out. Review of Systems Review of Systems: ROS unobtainable: Yes unobtainable due to mental status Exam Narrative: Physical exam reveals patient to only be alerted oriented x1. NG tube out. Tolerating liquids. Afebrile. Anicteric. Lungs are clear. Heart without murmur. Abdomen is obese. Cholecystotomy tube in place. Minimal drainage reported. Objective Data Vital Signs Vital Signs: Vital Signs - 24 hr 01/02/22 08:00 01/02/22 08:00 01/02/22 08:00 Temperature 98.3 F Pulse Rate 100 102 H Respiratory Rate 19 Blood Pressure 118/72 Pulse Oximetry 99 99 Oxygen Delivery Room Air 01/02/22 10:00 01/02/22 10:00 01/02/22 12:00 Temperature 97.8 F Pulse Rate 112 H 112 H 105 H Respiratory Rate 19 21 H Blood Pressure 90/67 L 108/67 Pulse Oximetry 100 100 Oxygen Delivery 01/02/22 12:00 01/02/22 12:00 01/02/22 14:00 Temperature Pulse Rate 105 H 104 H Respiratory Rate Blood Pressure Pulse Oximetry 98 Oxygen Delivery Room Air 01/02/22 16:00 01/02/22 16:00 01/02/22 16:00 Temperature 99.1 F Pulse Rate 109 H 109 H Respiratory Rate 20 Blood Pressure 117/70 Pulse Oximetry 97 97 Oxygen Delivery Room Air 01/02/22 12:19 01/02/22 18:00 01/02/22 20:00 Temperature Pulse Rate 94 107 H 108 H Respiratory Rate 18 Blood Pressure Pulse Oximetry 98 Oxygen Delivery Room Air 01/02/22 20:00 01/02/22 20:00 01/02/22 20:35 Temperature 99.6 F 99.3 F Pulse Rate 107 H 108 H Respiratory Rate 20 20 Blood Pressure 125/63 Pulse Oximetry 100 100 Oxygen Delivery Room Air 01/02/22 22:00 01/03/22 00:00 01/03/22 00:00 Temperature Pulse Rate 106 H 105 H 105 H Respiratory Rate 20 Blood Pressure Pulse Oximetry 97 Oxygen Delivery Room Air 01/03/22 00:00 01/03/22 02:00 01/03/22 04:00 Temperature 99.7 F H Pulse Rate 105 H 106 H 101 H Respiratory Rate 20 Blood Pressure 125/60 Pulse Oximetry 97 Oxygen Delivery 01/03/22 04:00 01/03/22 04:00 01/03/22 06:00 Temperature 99.3 F Pulse Rate 101 H 101 H 89 Respiratory
[2022-01-03] MEDS: PANTOPRAZOLE SODIUM IV 40 MG VIAL IV PUSH ×2 (08:18→20:06)
[2022-01-03 08:35] LABS: Fibrinogen 397 mg/dl (215-510)
[2022-01-03 08:44] LABS: Bilirubin Indirect 1.6 mg/dL (0-1.1); Bilirubin,Total 2.4 mg/dL (0.2-1.3); Lactate Dehydrogenase 153 U/L (120-246)
[2022-01-03 08:56] LABS: D Dimer 5.49 ug/mL (<0.48)
--- NOTE | 2022-01-03 11:33 | PM.PNGS ---
Progress Note: A&P Assessment and Plan (1) Cholecystitis: Code(s): K81.9 - Cholecystitis, unspecified Status: Acute Assessment and Plan: S/p perc yao tube on 12/30, bile cx pending. Yao tube was not exchanged yesterday after US showed gallbladder filled with blood likely too coagulated to drain. Will continue to monitor drain in place, there is some output after being flushed yesterday. Clinically imroving. Continue IV antibiotics. (2) Septic shock: Code(s): A41.9 - Sepsis, unspecified organism; R65.21 - Severe sepsis with septic shock Status: Acute Assessment and Plan: Improving, continue IV antibiotics, he has been downgraded to IMU status (3) Anemia: Code(s): D64.9 - Anemia, unspecified Status: Acute Assessment and Plan: Hgb down to 7.5 today, no plans for endoscopic evaluation at this time from GI, continue to monitor labs and transfuse as needed. Plan I have discussed the patient's case and plan of care with Dr. Cornelius. Subjective Subjective Date/Time Seen: 01/03/22 11:33 Patient reports: tolerating liquids well and afebrile Interval history: Patient remains pleasantly confused in the ICU, but IMU status. Still with percutaneous cholecystostomy tube in place with 60 cc out yesterday and 20 cc out overnight. Tube was not replaced due to ultrasound yesterday showing gallbladder filled with blood likely too coagulated for tube drainage and cholecystostomy tube in expected position. He denies any abdominal pain or nausea this morning. Tolerating full liquids well. Review of Systems Review of Systems: ROS unobtainable: Yes unobtainable due to mental status Exam Const: General: awake and ill appearing acutely Orientation/consciousness: confusion GI: Inspection: obesity and other (cholecystostomy tube with dark brown/red drainage) GI Palp: Yes Soft to palpation, No Tenderness to palpation present (GI), No Guarding due to palpation present (GI) and No Rebound tenderness present Auscultation: normal bowel sounds Objective Data Vital Signs Vital Signs: Vital Signs - 24 hr 01/02/22 12:00 01/02/22 12:00 01/02/22 12:00 Temperature 97.8 F Pulse Rate 105 H 105 H Respiratory Rate 21 H Blood Pressure 108/67 Pulse Oximetry 100 98 Oxygen Delivery Room Air 01/02/22 14:00 01/02/22 16:00 01/02/22 16:00 Temperature 99.1 F Pulse Rate 104 H 109 H Respiratory Rate 20 Blood Pressure 117/70 Pulse Oximetry 97 97 Oxygen Delivery Room Air 01/02/22 16:00 01/02/22 12:19 01/02/22 18:00 Temperature Pulse Rate 109 H 94 107 H Respiratory Rate 18 Blood Pressure Pulse Oximetry 98 Oxygen Delivery Room Air 01/02/22 20:00 01/02/22 20:00 01/02/22 20:00 Temperature 99.6 F Pulse Rate 108 H 107 H 108 H Respiratory Rate 20 20 Blood Pressure 125/63 Pulse Oximetry 100 100 Oxygen Delivery Room Air 01/02/22 20:35 01/02/22 22:00 01/03/22 00:00 Temperature 99.3 F Pulse Rate 106 H 105 H Respiratory Rate Blood Pressure Pulse Oximetry Oxygen Delivery 01/03/22 00:00 01/03/22 00:00 01/03/22 02:00 Temperature 99.7 F H Pulse Rate 105 H 105 H 106 H Respiratory Rate 20 20 Blood Pressure 125/60 Pulse Oximetry 97 97 Oxygen Delivery Room Air 01/03/22 04:00 01/03/22 04:00 01/03/22 04:00 Temperature 99.3 F Pulse Rate 101 H 101 H 101 H Respiratory Rate 18 18 Blood Pressure 117/68 Pulse Oximetry 98 98 Oxygen Delivery Room Air 01/03/22 06:00 01/03/22 07:47 01/03/22 08:00 Temperature 98.2 F Pulse Rate 89 93 Respiratory Rate 19 Blood Pressure 111/71 Pulse Oximetry 100 98 Oxygen Delivery Room Air 01/03/22 08:00 01/03/22 10:00 Temperature Pulse Rate 93 91 Respiratory Rate Blood Pressure Pulse Oximetry Oxygen Delivery Intake/Output Intake/Output: Intake & Output 12/31/21 01/01/22 01/02/22 01/03/22 23:59 23:59 23:59 23:59 Intake Total 4166
[2022-01-03 11:46] LABS: Glucose Point of Care 96 mg/dl (65-105)
--- NOTE | 2022-01-03 17:35 | PM.IMPN ---
Progress Note: A&P Assessment and Plan (1) Sepsis: Code(s): A41.9 - Sepsis, unspecified organism Status: Acute (2) Cholecystitis: Code(s): K81.9 - Cholecystitis, unspecified Status: Acute (3) Pericardial effusion: Code(s): I31.3 - Pericardial effusion (noninflammatory) Status: Acute (4) Essential hypertension: Code(s): I10 - Essential (primary) hypertension Status: Acute (5) Coronary artery disease: Code(s): I25.10 - Atherosclerotic heart disease of [place] coronary artery without angina pectoris Status: Acute (6) DVT (deep venous thrombosis): Code(s): I82.409 - Acute embolism and thrombosis of unspecified deep veins of unspecified lower extremity Status: Acute (7) PAD (peripheral artery disease): Code(s): I73.9 - Peripheral vascular disease, unspecified Status: Acute (8) Elevated troponin: Code(s): R77.8 - Other specified abnormalities of plasma proteins Status: Acute (9) Major depressive disorder, single episode, unspecified: Code(s): F32.9 - Major depressive disorder, single episode, unspecified Status: Acute (10) Hypertension: Code(s): I10 - Essential (primary) hypertension Status: Acute Plan 01/02/22 Patient with septic shock most likely 2/2 UTI and cholescystitis being treated with Zosyn and vancomycin, and being hydrated, s/p cholecystostomy tube placed by IR on 12/30, today the tube is clogged and IR will replace the tube today, patient clinicall sympotms are improving, Bile culture is pending, urine cultue is growing Proteus Mirabilis mills sensitive,being treated with Zosyn and vancomcin, white counts are tending down and fever, now with NG tube, patient is somnolent unable to provider detail ROS, patient is surgery service recommending conservative management, patient is seen by bricklayer's assistant off pressors, and appreciate, will continue to follow the patient. 01/03/22 on abx PCT draining sanguinous fluid INR elevated 1.8 down trending surgery/IR managing drain 40mEq of K given in am and pm am labs following K an Hgb Subjective Date/time seen: 01/03/22 17:35 pt confused but calm, bedside. we reviewed plan of care RN bedside during my visit Review of Systems Review of Systems: ROS unobtainable: Yes unobtainable due to mental status Exam Narrative: GEN: comfortable, NAD talkative but nonsensical HEENT: eyes are clear EOMI LUNGS: normal respiratory effort ABD: soft distended TTP at site of PCT,draining sanguinous flluid Lower extremities: no edema SKIN: jaundiced Objective Data Vital Signs Vital Signs: Vital Signs - 24 hr 01/02/22 12:00 01/02/22 12:00 01/02/22 12:00 Temperature 97.8 F Pulse Rate 105 H 105 H Respiratory Rate 21 H Blood Pressure 108/67 Pulse Oximetry 100 98 Oxygen Delivery Room Air 01/02/22 14:00 01/02/22 16:00 01/02/22 16:00 Temperature 99.1 F Pulse Rate 104 H 109 H Respiratory Rate 20 Blood Pressure 117/70 Pulse Oximetry 97 97 Oxygen Delivery Room Air 01/02/22 16:00 01/02/22 12:19 01/02/22 18:00 Temperature Pulse Rate 109 H 94 107 H Respiratory Rate 18 Blood Pressure Pulse Oximetry 98 Oxygen Delivery Room Air 01/02/22 20:00 01/02/22 20:00 01/02/22 20:00 Temperature 99.6 F Pulse Rate 108 H 107 H 108 H Respiratory Rate 20 20 Blood Pressure 125/63 Pulse Oximetry 100 100 Oxygen Delivery Room Air 01/02/22 20:35 01/02/22 22:00 01/03/22 00:00 Temperature 99.3 F Pulse Rate 106 H 105 H Respiratory Rate Blood Pressure Pulse Oximetry Oxygen Delivery 01/03/22 00:00 01/03/22 00:00 01/03/22 02:00 Temperature 99.7 F H Pulse Rate 105 H 105 H 106 H Respiratory Rate 20 20 Blood Pressure 125/60 Pulse Oximetry 97 97 Oxygen Delivery Room Air 01/03/22 04:00 01/03/22 04:00 01/03/22 04:00 Temperature 99.3 F Pulse Rate 101 H 101 H 101 H Respirato
[2022-01-03 17:41] LABS: Glucose Point of Care 87 mg/dl (65-105)
[2022-01-03] MEDS: POTASSIUM CHLORIDE 20 MEQ PACKET (FOR LIQUID) 40 MEQ PO (20:23)
[2022-01-03] MEDS: DEXTROSE 50% 25 GM/50 ML SYRINGE IV PUSH (23:49)
[2022-01-03 23:51] LABS: Glucose Point of Care 65 mg/dl (65-105)
[2022-01-03 23:51] LABS: Glucose Point of Care 77 mg/dl (65-105)
[2022-01-04] VITALS (14 sets, daily range): BP systolic 107–150; BP diastolic 62–91; PULSE 85–118; RESP 16–20; TEMP 36.6–37.1; O2SAT 96–100
[2022-01-04 00:23] LABS: Glucose Point of Care 87 mg/dl (65-105)
[2022-01-04] MEDS: ALBUMIN HUMAN 25% 25 GM/100 ML 100 ML IVPB (03:49)
[2022-01-04] MEDS: PIPERACILLIN/TAZOBACTAM SOD 4.5 GM in SODIUM CHLORIDE 0.9% IV 100 ML 200 ML IVPB ×3 (05:16→17:18)
[2022-01-04] MEDS: CENTRAL LINE FLUSH 10 ML IV PUSH ×3 (05:17→22:21)
[2022-01-04 06:31] LABS: Glucose Point of Care 60 mg/dl (65-105)
[2022-01-04 06:31] LABS: Glucose Point of Care 87 mg/dl (65-105)
[2022-01-04 06:33] LABS: Basophils Percent Auto 0.2 % (0.2-1.2); Eosinophils Absolute Auto 0.2 K/mm3 (0-0.3); Eosinophils Percent Auto 2.3 % (0-4.4); Hematocrit 21.6 % (42.0-52.0); Hemoglobin 7.9 g/dL (14.0-18.0); Immature Granulocyte Absolute 0.18 K/mm3 (0.00-0.031); Immature Granulocyte Percent A 1.9 % (0-0.5); Lymphocytes Absolute Auto 2.31 K/mm3 (0.9-3.2); Lymphocytes Percent Auto 24.2 % (18.3-44.2); Mean Corpuscular HGB Conc 36.6 g/dl (32-36); Mean Corpuscular Hemoglobin 35.1 pg (26-34); Mean Platelet Volume 9.5 fl (7.4-10.4); Neutrophils Absolute Auto 5.9 K/mm3 (1.3-6.7); Neutrophils Percent Auto 61.4 % (45.5-73.1); Platelet Count Result 180 k/mm3 (150-375); Red Blood Count 2.25 M/mm3 (4.6-6.20); Red Cell Distribution Width 23.9 % (11.5-14.5); White Blood Count 9.5 K/mm3 (4.5-10.0)
[2022-01-04 06:40] LABS: Alanine Aminotransferase 9 U/L (6-50); Albumin Level 4.4 g/dL (3.5-5.1); Alkaline Phosphatase 52 U/L (38-126); Anion Gap 17 mmol/L (8-16); Aspartate Amino Transferase 15 U/L (17-59); Bilirubin,Total 1.9 mg/dL (0.2-1.3); Blood Urea Nitrogen 6 mg/dL (9-20); Calcium 8.7 mg/dL (8.4-10.2); Carbon Dioxide 23 mmol/L (22-30); Chloride 105 mmol/L (98-107); Estimated CRCL calculation 96 ml/min; Estimated Glomerular Filt Rate > 60; Glucose 92 mg/dL (65-110); Magnesium 1.9 mg/dL (1.6-2.3); Phosphorus 2.7 mg/dL (2.5-4.5); Potassium 3.1 mmol/L (3.4-5.0); Sodium 145 mmol/L (137-145)
[2022-01-04 07:00] LABS: INR 1.6; Prothrombin Time 18.7 Seconds (11.1-14.7)
[2022-01-04 08:21] LABS: Anisocytosis 1+ (NORMAL); Hypochromasia 2+ (NORMAL); Platelet Estimate Adequate (Adequate); Poikilocytosis 1+ (NORMAL)
[2022-01-04 08:22] LABS: Acanthocytes 2+ (NORMAL); Ovalocytes 1+ (NORMAL); Schistocytes 1+ (NORMAL)
[2022-01-04 08:23] LABS: Atypical Lymphocytes Present; Macrocytosis 1+ (NORMAL)
--- NOTE | 2022-01-04 08:59 | PM.IMPN ---
Progress Note: A&P Assessment and Plan (1) Septic shock: Code(s): A41.9 - Sepsis, unspecified organism; R65.21 - Severe sepsis with septic shock Status: Acute Assessment and Plan: Septic shock likely due to cholecystitis and UTI - RT IJ central line placed? 12/30 - continue Zosyn (12/30) discontinued vancomycin 01/02 -hold further IV fluids as patient was given dose of Lasix yesterday -off vasopressor -he is afebrile and WBC are normal -blood cultures negative till now -urine culture is growing Proteus mirabilis -off vasopressor -will discontinue albumin (2) Cholecystitis: Code(s): K81.9 - Cholecystitis, unspecified Status: Acute Assessment and Plan: Appreciate surgery evaluation and recommendation -12/30/2021:? Cholecystostomy tube was placed by interventional radiologist. It is not draining significant amount. CT scan done yesterday shows persistently distended gallbladder. 01/02 ?Distended gallbladder filled with blood with cholecystostomy tube in expected position. The blood is likely too coagulated for tube drainage. I discussed this result with Dr. Carter. General surgery following and recommending conservative management this time - cultures obtained and negative till now -continue Zosyn 4.5 g IV Q 6 hours (3) DVT (deep venous thrombosis): Code(s): I82.409 - Acute embolism and thrombosis of unspecified deep veins of unspecified lower extremity Status: Acute Assessment and Plan: Lower extremity Dopplers are negative for DVT (4) Major depressive disorder, single episode, unspecified: Code(s): F32.9 - Major depressive disorder, single episode, unspecified Status: Acute Assessment and Plan: Home p.o. meds on hold as patient is currently NPO (5) Effusion, pericardium: Code(s): I31.3 - Pericardial effusion (noninflammatory) Status: Acute Assessment and Plan: Small to moderate circumferential pericardial effusion without tamponade physiology on echocardiogram.? 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 On 08/11/2021. (6) UTI (urinary tract infection): Code(s): N39.0 - Urinary tract infection, site not specified Status: Acute Assessment and Plan: Urine cultures growing Proteus Currently on Zosyn (7) Anemia: Code(s): D64.9 - Anemia, unspecified Status: Acute Assessment and Plan: Patient's hemoglobin had been gradually trending down since admission. Although this could be dilutional and there is no obvious evidence of bleeding, he was on anticoagulation 01/01 patient was transfused 1 unit of PRBC, anticoagulation was held since his lower extremity Dopplers were negative for DVT at this time Pepcid changed to PPI Repeat CT abdomen pelvis was done which did not show any hematoma or bleeding GI following and do not plan any procedures this Continue PPI. Continue to monitor hemoglobin closely stool for occult blood is positive (8) Electrolyte abnormality: Code(s): E87.8 - Other disorders of electrolyte and fluid balance, not elsewhere classified Status: Acute Assessment and Plan: Replace low potassium (9) Coagulopathy: Code(s): D68.9 - Coagulation defect, unspecified Status: Acute Assessment and Plan: 01/01 patient was given 10 mg of vitamin K Normal fibrinogen level Plan DVT prophylaxis:? SCDs Nutrition:? Modified diet ordered Code Status:? Full code Consult physical therapy, occupational therapy Up in chair Incentive spirometry Subjective Date/time seen: 01/04/22 Patient states he has mild pain at the site of insertion. He denies any other complaints. He is afebrile with good urine output. His p.o. intake has been poor requires lot of intervention and effort from nurses to feed him as he states that he does not feel hungry. He has not had any nausea vomiting. His NG has been out for couple of days. He denies
[2022-01-04] MEDS: PANTOPRAZOLE SODIUM IV 40 MG VIAL IV PUSH ×2 (09:02→22:21)
[2022-01-04] MEDS: KCL 40 MEQ/WATER 100 ML 100 ML 25 ML IVPB (09:03)
[2022-01-04] MEDS: ACETAMINOPHEN ELIXIR 325 MG/10.15 ML UDC 650 MG PO (09:03)
[2022-01-04] MEDS: KCL 20 MEQ/SW 100 ML 100 ML 50 MEQ IVPB (11:18)
[2022-01-04] MEDS: ONDANSETRON INJ 4 MG/2 ML VIAL IV PUSH (12:03)
--- NOTE | 2022-01-04 13:32 | WPDGIPROGNO ---
Progress Note: A&P Assessment and Plan (1) Cholecystitis: Code(s): K81.9 - Cholecystitis, unspecified Status: Acute Assessment and Plan: Patient with cholecystitis. Cholecystotomy tube in place managed by surgical service. Patient remains on broad-spectrum antibiotics. Surgery being ill for given his poor overall condition. (2) Morbid obesity due to excess calories: Code(s): E66.01 - Morbid (severe) obesity due to excess calories Status: Acute (3) Confusion: Code(s): R41.0 - Disorientation, unspecified Status: Acute Assessment and Plan: Patient with poor orientation. He has been in the skilled nursing was some concern over dementia. Uncertain over baseline level of attention. Currently only oriented x1. (4) Anemia: Code(s): D64.9 - Anemia, unspecified Status: Acute Assessment and Plan: Patient with anemia. Appears to be multifactorial. No obvious bleeding noted. Hemoccult-positive stools identified. Plan to maintain on PPI therapy for stress gastritis empirically at this point. Continue monitor hemoglobin closely. Patient noted to have brown stool this morning. (5) Coagulopathy: Code(s): D68.9 - Coagulation defect, unspecified Status: Acute Assessment and Plan: Patient had elevated INR. This is now improving. Elevated D dimer identified. Continue to monitor closely at this point. Subjective Date/time seen: 01/04/22 13:32 Patient remains confused in the intensive care unit. Passing stool with no evidence for bleeding. Patient remains on broad-spectrum antibiotic coverage. Cholecystotomy tube in place. Review of Systems Review of Systems: Review of systems noncontributory. Exam Narrative: Physical exam reveals patient to be somewhat confused only oriented x1. HEENT exam reveals no icterus. Lungs are clear. Heart without murmur. Abdomen is obese. Bowel sounds are present soft no localized tenderness. Objective Data Vital Signs Vital Signs: Vital Signs - 24 hr 01/03/22 14:00 01/03/22 16:00 01/03/22 16:00 Temperature Pulse Rate 94 92 Respiratory Rate Blood Pressure Pulse Oximetry 100 Oxygen Delivery Room Air 01/03/22 16:00 01/03/22 18:00 01/03/22 20:00 Temperature 98.8 F Pulse Rate 91 89 90 Respiratory Rate 17 Blood Pressure 146/76 H Pulse Oximetry 100 Oxygen Delivery 01/03/22 20:00 01/03/22 20:00 01/03/22 22:00 Temperature 97.5 F L Pulse Rate 89 93 Respiratory Rate 15 Blood Pressure 148/80 H Pulse Oximetry 100 Oxygen Delivery Room Air 01/03/22 23:57 01/04/22 00:00 01/04/22 00:00 Temperature 98 F Pulse Rate 107 H 105 H Respiratory Rate 19 Blood Pressure 142/83 H Pulse Oximetry 100 Oxygen Delivery Room Air 01/04/22 02:00 01/04/22 04:00 01/04/22 04:00 Temperature 98.8 F Pulse Rate 87 88 Respiratory Rate 19 Blood Pressure 129/68 Pulse Oximetry 100 Oxygen Delivery Room Air 01/04/22 04:00 01/04/22 06:00 01/04/22 08:01 Temperature 98.1 F Pulse Rate 85 106 H 108 H Respiratory Rate 18 Blood Pressure 150/85 H Pulse Oximetry 99 Oxygen Delivery 01/04/22 08:00 01/04/22 08:00 01/04/22 10:00 Temperature Pulse Rate 106 H 106 H 105 H Respiratory Rate 16 Blood Pressure Pulse Oximetry 97 Oxygen Delivery Room Air 01/04/22 12:00 01/04/22 12:00 Temperature 98 F Pulse Rate 109 H 109 H Respiratory Rate 17 Blood Pressure 136/79 Pulse Oximetry 100 Oxygen Delivery Intake/Output Intake/Output: Intake & Output 01/01/22 01/02/22 01/03/22 01/04/22 23:59 23:59 23:59 23:59 Intake Total 2135 5669.951 4367 450 Output Total 4785 2770 885 410 Banner -2650 -1163.334 315 40 Meds/Results Medications: Active Medications Generic Name Dose Route Start Last Admin Trade Name Freq PRN Reason Stop Dose Admin Acetaminophen 650 mg 01/02/22 18:24 01/04/22 09:03 Acetamino
[2022-01-04 14:12] LABS: Glucose Point of Care 73 mg/dl (65-105)
--- NOTE | 2022-01-04 15:36 | PM.PNGS ---
Progress Note: A&P Assessment and Plan (1) Cholecystitis: Code(s): K81.9 - Cholecystitis, unspecified Status: Acute Assessment and Plan: cont drain and abx, sepsis seems largely resolved, no acute surgical issues, call c ?s, issues, will need f/u as outpt to setup cholangiogram thru tube prior to removal Subjective Subjective Date/Time Seen: 01/04/22 15:36 no acute issues, still confused (?baseline) Review of Systems Review of Systems: ROS unobtainable: Yes unobtainable due to mental status Exam Const: General: no acute distress, ill appearing and tired appearing Resp: Auscultation: diminished lung sounds Cardio: Rate: regular rate Rhythm: regular rhythm GI: Inspection: normal to inspection and distended GI Palp: Yes abdominal tenderness, Yes Soft to palpation, Yes Tenderness to palpation present (GI), No Guarding due to palpation present (GI) and No Rigid due to palpation Other: drain c bloody drainage Objective Data Vital Signs Vital Signs: Vital Signs - 24 hr 01/03/22 16:00 01/03/22 16:00 01/03/22 16:00 Temperature 37.1 C Pulse Rate 92 91 Respiratory Rate 17 Blood Pressure 146/76 H Pulse Oximetry 100 100 Oxygen Delivery Room Air 01/03/22 18:00 01/03/22 20:00 01/03/22 20:00 Temperature 36.4 C L Pulse Rate 89 90 89 Respiratory Rate 15 Blood Pressure 148/80 H Pulse Oximetry 100 Oxygen Delivery 01/03/22 20:00 01/03/22 22:00 01/03/22 23:57 Temperature 36.6 C Pulse Rate 93 107 H Respiratory Rate 19 Blood Pressure 142/83 H Pulse Oximetry 100 Oxygen Delivery Room Air 01/04/22 00:00 01/04/22 00:00 01/04/22 02:00 Temperature Pulse Rate 105 H 87 Respiratory Rate Blood Pressure Pulse Oximetry Oxygen Delivery Room Air 01/04/22 04:00 01/04/22 04:00 01/04/22 04:00 Temperature 37.1 C Pulse Rate 88 85 Respiratory Rate 19 Blood Pressure 129/68 Pulse Oximetry 100 Oxygen Delivery Room Air 01/04/22 06:00 01/04/22 08:01 01/04/22 08:00 Temperature 36.7 C Pulse Rate 106 H 108 H 106 H Respiratory Rate 18 Blood Pressure 150/85 H Pulse Oximetry 99 Oxygen Delivery 01/04/22 08:00 01/04/22 10:00 01/04/22 12:00 Temperature Pulse Rate 106 H 105 H 109 H Respiratory Rate 16 Blood Pressure Pulse Oximetry 97 Oxygen Delivery Room Air 01/04/22 12:00 01/04/22 14:00 Temperature 36.6 C Pulse Rate 109 H 114 H Respiratory Rate 17 Blood Pressure 136/79 Pulse Oximetry 100 Oxygen Delivery Intake/Output Intake/Output: Intake & Output 01/01/22 01/02/22 01/03/22 01/04/22 23:59 23:59 23:59 23:59 Intake Total 2135 7109.224 6948 450 Output Total 4785 2770 885 410 Balance -3820 -1163.334 315 40 Meds/Results Medications: Active Medications Generic Name Dose Route Start Last Admin Trade Name Freq PRN Reason Stop Dose Admin Acetaminophen 650 mg 01/02/22 18:24 01/04/22 09:03 Acetaminophen Elixir 325 Mg/10.15 Ml Udc PO 650 mg Q6H PRN Administration Mild Pain (1-3) or Fever Dextrose 12.5 gm 12/31/21 18:46 01/03/22 23:49 Dextrose 50% 25 Gm/50 Ml Syringe IV PUSH 12.5 gm PRN PRN Administration Hypoglycemia Protocol Enoxaparin Sodium 100 mg 12/31/21 10:30 01/01/22 08:30 Enoxaparin 100 Mg/Ml Syringe SUB-Q 100 mg Q12HR MYA Administration Glucagon 1 mg 12/31/21 18:46 Glucagon For Inj 1 Mg Vial IM PRN PRN Hypoglycemia Protocol Glucose 15 gm 12/31/21 18:46 Glucose Oral Gel 15 Gm Of Glucse In 37.5 Gm Tube PO PRN PRN Hypoglycemia Protocol Dextrose 1,000 mls @ 100 mls/hr 12/31/21 18:46 Dextrose 5% 1,000 Ml IVPB PRN PRN Hypoglycemia Protocol Piperacillin Sod/Tazobactam 100 mls @ 200 mls/hr 01/02/22 12:00 01/04/22 11:18 Sod 4.5 gm/ Sodium Chloride IVPB 200 mls/hr Q6HR MYA Administration Ondansetron HCl 4 mg 01/04/22 11:52 01/04/22 12:03 Ondansetron Inj 4
--- NOTE | 2022-01-04 15:55 | PC.NURSE ---
This patient, Juan Pablo Almaraz, was transferred to [facility] on 01/04/22 at 1555. Personal belongings sent with patient. Report given to Sonia. Appropriate documentation sent with patient.
--- NOTE | 2022-01-04 15:56 | PC.NURSE ---
This patient, Juan Pablo Almaraz, was received from ICU on 01/04/22 at 1556.Report received from Nohelia LEA Patient/family oriented to unit policies and routines
[2022-01-04 17:14] LABS: Glucose Point of Care 81 mg/dl (65-105)
[2022-01-05] VITALS (10 sets, daily range): BP systolic 126–139; BP diastolic 71–84; PULSE 106–129; RESP 18–20; TEMP 36.7–37.1; O2SAT 95–100; BMI 38.0
[2022-01-05] MEDS: PIPERACILLIN/TAZOBACTAM SOD 4.5 GM in SODIUM CHLORIDE 0.9% IV 100 ML 200 ML IVPB ×4 (00:14→17:55)
[2022-01-05] MEDS: CENTRAL LINE FLUSH 10 ML IV PUSH ×4 (05:47→21:57)
[2022-01-05 06:02] LABS: Basophils Percent Auto 0.3 % (0.2-1.2); Eosinophils Absolute Auto 0.3 K/mm3 (0-0.3); Eosinophils Percent Auto 3.3 % (0-4.4); Hematocrit 23.6 % (42.0-52.0); Hemoglobin 8.7 g/dL (14.0-18.0); Lymphocytes Absolute Auto 2.44 K/mm3 (0.9-3.2); Lymphocytes Percent Auto 24.6 % (18.3-44.2); Mean Corpuscular HGB Conc 36.9 g/dl (32-36); Mean Corpuscular Volume 97.5 fl (80-100); Mean Platelet Volume 9.3 fl (7.4-10.4); Monocytes Percent Auto 10.1 % (2.6-8.5); Neutrophils Absolute Auto 5.7 K/mm3 (1.3-6.7); Neutrophils Percent Auto 57.7 % (45.5-73.1); Platelet Count Result 248 k/mm3 (150-375); Red Blood Count 2.42 M/mm3 (4.6-6.20); Red Cell Distribution Width 26.4 % (11.5-14.5); White Blood Count 9.9 K/mm3 (4.5-10.0)
[2022-01-05 06:17] LABS: INR 1.7; Prothrombin Time 18.9 Seconds (11.1-14.7)
[2022-01-05 06:18] LABS: Partial Thromboplastin Time 36.7 SECONDS (22.3-36.8)
[2022-01-05 06:20] LABS: Alanine Aminotransferase 11 U/L (6-50); Albumin Level 3.9 g/dL (3.5-5.1); Alkaline Phosphatase 55 U/L (38-126); Anion Gap 13 mmol/L (8-16); Aspartate Amino Transferase 18 U/L (17-59); Bilirubin,Total 1.4 mg/dL (0.2-1.3); Blood Urea Nitrogen 6 mg/dL (9-20); Calcium 8.6 mg/dL (8.4-10.2); Carbon Dioxide 25 mmol/L (22-30); Chloride 104 mmol/L (98-107); Estimated CRCL calculation 96 ml/min; Estimated Glomerular Filt Rate > 60; Glucose 103 mg/dL (65-110); Magnesium 1.9 mg/dL (1.6-2.3); Phosphorus 2.3 mg/dL (2.5-4.5); Potassium 3.3 mmol/L (3.4-5.0); Sodium 142 mmol/L (137-145)
--- NOTE | 2022-01-05 06:32 | PC.NURSE ---
Pt is refusing accu-checks. Will pass it along to next shift.
[2022-01-05 07:37] LABS: Platelet Estimate Adequate (Adequate); Poikilocytosis 2+ (NORMAL)
[2022-01-05 07:38] LABS: Acanthocytes 1+ (NORMAL)
[2022-01-05 08:29] LABS: Schistocytes None Seen (NORMAL)
[2022-01-05] MEDS: PANTOPRAZOLE SODIUM IV 40 MG VIAL IV PUSH ×2 (09:21→21:57)
[2022-01-05] MEDS: POTASSIUM CHLORIDE 20 MEQ PACKET (FOR LIQUID) 40 MEQ PO (11:00)
--- NOTE | 2022-01-05 12:17 | WPDGIPROGNO ---
Progress Note: A&P Assessment and Plan (1) Confusion: Code(s): R41.0 - Disorientation, unspecified Status: Acute Assessment and Plan: Patient with confusion is difficult to know what his baseline is. Appears to have baseline dementia. (2) Coagulopathy: Code(s): D68.9 - Coagulation defect, unspecified Status: Acute Assessment and Plan: Coagulopathy improving. Would avoid anticoagulation giving ongoing cholecystitis and tube management. (3) Anemia: Code(s): D64.9 - Anemia, unspecified Status: Acute Assessment and Plan: Patient with anemia likely related to cholecystitis. Continuing prophylactic therapy for possible stress ulceration advised. I would defer endoscopy in this patient given his comorbid diseases. (4) Cholecystitis: Code(s): K81.9 - Cholecystitis, unspecified Status: Acute Assessment and Plan: Appears as though sepsis is resolved. Cholecystitis management per surgical service. Anticipate follow-up with their service prior to gallbladder tube removal and ultimately cholecystectomy. (5) Morbid obesity due to excess calories: Code(s): E66.01 - Morbid (severe) obesity due to excess calories Status: Acute Subjective Date/time seen: 01/05/22 12:17 Patient alert but remains not well oriented. Does not give any useful history. Tolerating diet currently denies abdominal pain. Review of Systems Review of Systems: Review of systems noncontributory. Exam Narrative: Physical exam reveals patient be alert afebrile is anicteric. Lungs are clear. Heart without murmur. Abdomen bowel sounds present soft nontender. Cholecystostomy tube in place. Objective Data Vital Signs Vital Signs: Vital Signs - 24 hr 01/04/22 14:00 01/04/22 16:00 01/04/22 15:30 Temperature 98.4 F Pulse Rate 114 H 117 H 118 H Respiratory Rate 18 Blood Pressure 133/91 H Pulse Oximetry 99 Oxygen Delivery 01/04/22 20:00 01/04/22 23:30 01/04/22 22:10 Temperature 98.4 F 98.4 F Pulse Rate 113 H 116 H Respiratory Rate 20 20 Blood Pressure 121/90 107/62 Pulse Oximetry 96 99 Oxygen Delivery Room Air 01/04/22 20:03 01/05/22 00:01 01/05/22 03:27 Temperature 98.3 F Pulse Rate 115 H 106 H 110 H Respiratory Rate 20 Blood Pressure 132/75 Pulse Oximetry 100 Oxygen Delivery 01/05/22 04:03 01/05/22 10:46 Temperature 98.0 F Pulse Rate 125 H 106 H Respiratory Rate 18 Blood Pressure 126/72 Pulse Oximetry 97 Oxygen Delivery Intake/Output Intake/Output: Intake & Output 01/02/22 01/03/22 01/04/22 01/05/22 23:59 23:59 23:59 23:59 Intake Total 9563.445 8870 770 300 Output Total 2770 885 660 350 Balance -1163.334 315 110 -50 Meds/Results Medications: Active Medications Generic Name Dose Route Start Last Admin Trade Name Freq PRN Reason Stop Dose Admin Acetaminophen 650 mg 01/02/22 18:24 01/04/22 09:03 Acetaminophen Elixir 325 Mg/10.15 Ml Udc PO 650 mg Q6H PRN Administration Mild Pain (1-3) or Fever Dextrose 12.5 gm 12/31/21 18:46 01/03/22 23:49 Dextrose 50% 25 Gm/50 Ml Syringe IV PUSH 12.5 gm PRN PRN Administration Hypoglycemia Protocol Enoxaparin Sodium 100 mg 12/31/21 10:30 01/01/22 08:30 Enoxaparin 100 Mg/Ml Syringe SUB-Q 100 mg Q12HR MYA Administration Glucagon 1 mg 12/31/21 18:46 Glucagon For Inj 1 Mg Vial IM PRN PRN Hypoglycemia Protocol Glucose 15 gm 12/31/21 18:46 Glucose Oral Gel 15 Gm Of Glucse In 37.5 Gm Tube PO PRN PRN Hypoglycemia Protocol Dextrose 1,000 mls @ 100 mls/hr 12/31/21 18:46 Dextrose 5% 1,000 Ml IVPB PRN PRN Hypoglycemia Protocol Piperacillin Sod/Tazobactam 100 mls @ 200 mls/hr 01/02/22 12:00 01/05/22 06:17 Sod 4.5 gm/ Sodium Chloride IVPB Infused Q6HR MYA Infusion Ondansetron HCl 4 mg 01/04/22 11:52 01/04/22 12:03 Ondansetro
--- NOTE | 2022-01-05 15:40 | PDONCCN ---
HPI - Date of Consult Date/Time: 01/05/22 15:40 Requesting Physician: Carisa Robin DO Primary Care Provider: Melania HoltMD - Consult Narrative Reason for consult: Normocytic anemia Narrative: Juan Pablo Almaraz is a 71 year old male with history of coronary artery disease, hypertension and TIA along with history of DVT came into the hospital from [facility] with mental status changes. CT abdomen pelvis showed acute cholecystitis with small pericardial and pleural effusion. CT head showed nonspecific findings. His hemoglobin was 13.5 on admission dropped to 6.8 on January 01 and receive blood transfusion. He denies any bleeding including melena hematochezia. His PT and PTT was elevated as well as D-dimer. Doppler study from December 29 showed no evidence of DVT in bilateral lower extremities. Anticoagulation was discontinued due to profound anemia and concern for bleeding. Patient had ultrasound-guided cholecystostomy tube placement on December 29. Patient has been treated for sepsis and UTI as well as cholecystitis. He still looks slightly confused. Denies any bleeding. No other new complaints. Review of Systems - Review of Systems All systems reviewed & are unremarkable except as noted in HPI and bel - Neurologic Reports system reviewed and no additional complaints, except as documented, Reports hearing normal, Reports confusion PMFSH Medical History: Medical History (Last Reviewed 12/30/21 @ 08:58 by Evelyn Cornelius MD) Coronary artery disease DVT (deep venous thrombosis) Effusion, pericardium Essential hypertension History of GI bleed History of TIA (transient ischemic attack) Morbid obesity due to excess calories PAD (peripheral artery disease) Surgical History: Surgical History (Last Reviewed 12/30/21 @ 08:58 by Evelyn Cornelius MD) History of ankle surgery Family History: Family History (Last Reviewed 12/30/21 @ 08:58 by Evelyn Cornelius MD) Father Family history of malignant neoplasm Mother Family history of heart disease in male family member before age 55 Hypertension Family history of cardiovascular disease - Social History Social History: Social History (Last Reviewed 12/30/21 @ 08:58 by Evelyn Cornelius MD) Alcohol Use: Alcohol intake: never Substance Use: Substance use: never Others: Spiritual care concerns: No Smoking Status: Smoking status: Never smoker Second hand tobacco smoke exposure: Yes Exam - Vital Signs Vital Signs - 24 hr 01/04/22 16:00 01/04/22 20:00 01/04/22 23:30 Temperature 36.9 C 36.9 C Pulse Rate 117 H 113 H 116 H Respiratory Rate 20 20 Blood Pressure 121/90 107/62 Pulse Oximetry 96 99 Oxygen Delivery 01/04/22 22:10 01/04/22 20:03 01/05/22 00:01 Temperature Pulse Rate 115 H 106 H Respiratory Rate Blood Pressure Pulse Oximetry Oxygen Delivery Room Air 01/05/22 03:27 01/05/22 04:03 01/05/22 10:46 Temperature 36.8 C 36.7 C Pulse Rate 110 H 125 H 106 H Respiratory Rate 20 18 Blood Pressure 132/75 126/72 Pulse Oximetry 100 97 Oxygen Delivery 01/05/22 08:00 01/05/22 08:00 01/05/22 12:00 Temperature Pulse Rate 118 H 108 H Respiratory Rate Blood Pressure Pulse Oximetry 95 Oxygen Delivery Room Air 01/05/22 14:46 Temperature 37.1 C Pulse Rate 128 H Respiratory Rate 18 Blood Pressure 139/84 Pulse Oximetry 99 Oxygen Delivery - Exam HEENT: EOMI, PERRLA Neck: supple. No: JVD Lungs: clear to auscultation, normal air movement Heart: no murmurs, gallops, or rubs, regular rhythm, regular rate Abdomen: abdomen soft, non-distended, normal bowel sounds Extremities: normal pulses Integumentary: no abnormalities Psychological: confused - Lab Results Laboratory Last Values WBC 9.9 K/mm3 (4.5-10.0) 01/05/22 05:46 RBC 2.42 M/mm3 (4.6-6.20) L 01/05/22 05:46 Hgb 8.7 g/dL (14.0-18.0) L 01/05/22
--- NOTE | 2022-01-05 16:45 | PM.IMPN ---
Progress Note: A&P Assessment and Plan (1) Sepsis: Code(s): A41.9 - Sepsis, unspecified organism Status: Acute (2) Cholecystitis: Code(s): K81.9 - Cholecystitis, unspecified Status: Acute (3) Pericardial effusion: Code(s): I31.3 - Pericardial effusion (noninflammatory) Status: Acute (4) Essential hypertension: Code(s): I10 - Essential (primary) hypertension Status: Acute (5) Coronary artery disease: Code(s): I25.10 - Atherosclerotic heart disease of [place] coronary artery without angina pectoris Status: Acute (6) DVT (deep venous thrombosis): Code(s): I82.409 - Acute embolism and thrombosis of unspecified deep veins of unspecified lower extremity Status: Acute (7) PAD (peripheral artery disease): Code(s): I73.9 - Peripheral vascular disease, unspecified Status: Acute (8) Elevated troponin: Code(s): R77.8 - Other specified abnormalities of plasma proteins Status: Acute (9) Major depressive disorder, single episode, unspecified: Code(s): F32.9 - Major depressive disorder, single episode, unspecified Status: Acute (10) Hypertension: Code(s): I10 - Essential (primary) hypertension Status: Acute Plan 01/02/22 Patient with septic shock most likely 2/2 UTI and cholescystitis being treated with Zosyn and vancomycin, and being hydrated, s/p cholecystostomy tube placed by IR on 12/30, today the tube is clogged and IR will replace the tube today, patient clinicall sympotms are improving, Bile culture is pending, urine cultue is growing Proteus Mirabilis mills sensitive,being treated with Zosyn and vancomcin, white counts are tending down and fever, now with NG tube, patient is somnolent unable to provider detail ROS, patient is surgery service recommending conservative management, patient is seen by stereotyper off pressors, and appreciate, will continue to follow the patient. 01/03/22 on abx PCT draining sanguinous fluid INR elevated 1.8 down trending surgery/IR managing drain 40mEq of K given in am and pm am labs following K an Hgb 01/04/22 pt seen by ICU physician 01/05/22 pt now on gen med floor he is stable still confused seen by oncology + h/o hemolytic anemia; not actively hemolyzing; recommends to monitor disease process w LDH and indirect bilirubin cont abx for cholecystitis surgery managing drain recommend followup ?outpt to setup cholangiogram thru tube prior to removal am labs ordered Subjective Date/time seen: 01/05/22 16:45 pt cooperative but confused asking for someone to get him some fresh rolls so he can cook his meal pt reminded he is at [facility] Review of Systems Review of Systems: ROS unobtainable: Yes unobtainable due to mental status Exam Narrative: GEN: comfortable, NAD talkative but nonsensical HEENT: eyes are clear EOMI LUNGS: normal respiratory effort ABD: soft distended TTP at site of PCT,draining sanguinous flluid : romano catheter in place Lower extremities: no edema Objective Data Vital Signs Vital Signs: Vital Signs - 24 hr 01/04/22 20:00 01/04/22 23:30 01/04/22 22:10 Temperature 98.4 F 98.4 F Pulse Rate 113 H 116 H Respiratory Rate 20 20 Blood Pressure 121/90 107/62 Pulse Oximetry 96 99 Oxygen Delivery Room Air 01/04/22 20:03 01/05/22 00:01 01/05/22 03:27 Temperature 98.3 F Pulse Rate 115 H 106 H 110 H Respiratory Rate 20 Blood Pressure 132/75 Pulse Oximetry 100 Oxygen Delivery 01/05/22 04:03 01/05/22 10:46 01/05/22 08:00 Temperature 98.0 F Pulse Rate 125 H 106 H 118 H Respiratory Rate 18 Blood Pressure 126/72 Pulse Oximetry 97 Oxygen Delivery 01/05/22 08:00 01/05/22 12:00 01/05/22 14:46 Temperature 98.7 F Pulse Rate 108 H 128 H Respiratory Rate 18 Blood Pressure 139/84 Pulse Oximetry 95 99 Oxygen Delivery Room Air Intake/Output Intake/Output: Intake
[2022-01-05 16:56] LABS: Immature Reticulocyte Fraction 27.6 % (3.0-15.9); Reticulocyte Hemoglobin Conten 31.2 pg (28.2-35.7); Reticulocyte Percent 1.51 % (0.7-4.3); Reticulocytes Absolute 0.04 B/L (32.2-175.7)
[2022-01-05 17:02] LABS: Lactate Dehydrogenase 203 U/L (120-246)
[2022-01-05 17:30] LABS: Iron 49 ug/dL (49-181)
[2022-01-05 17:39] LABS: Percent Iron Saturation 42 % (20-50)
[2022-01-05 18:09] LABS: Folic Acid 5.5 ng/mL (2.76->20)
[2022-01-06] VITALS (10 sets, daily range): BP systolic 127–147; BP diastolic 72–96; PULSE 100–126; RESP 14–21; TEMP 36.2–36.9; O2SAT 97–100
[2022-01-06] MEDS: PIPERACILLIN/TAZOBACTAM SOD 4.5 GM in SODIUM CHLORIDE 0.9% IV 100 ML 200 ML IVPB ×5 (00:52→23:40)
[2022-01-06] MEDS: SODIUM CHLORIDE 0.9% IV 100 ML (00:53)
[2022-01-06] MEDS: MELATONIN 5 MG TABLET PO ×2 (01:17→20:26)
[2022-01-06] MEDS: CENTRAL LINE FLUSH 10 ML IV PUSH ×4 (05:42→20:32)
[2022-01-06 06:03] LABS: Alanine Aminotransferase 11 U/L (6-50); Albumin Level 3.9 g/dL (3.5-5.1); Alkaline Phosphatase 56 U/L (38-126); Anion Gap 13 mmol/L (8-16); Aspartate Amino Transferase 21 U/L (17-59); Bilirubin,Total 1.1 mg/dL (0.2-1.3); Blood Urea Nitrogen 5 mg/dL (9-20); Calcium 8.6 mg/dL (8.4-10.2); Carbon Dioxide 25 mmol/L (22-30); Chloride 104 mmol/L (98-107); Estimated CRCL calculation 96 ml/min; Estimated Glomerular Filt Rate > 60; Glucose 108 mg/dL (65-110); Magnesium 1.9 mg/dL (1.6-2.3); Phosphorus 2.3 mg/dL (2.5-4.5); Potassium 3.1 mmol/L (3.4-5.0); Sodium 142 mmol/L (137-145)
[2022-01-06 06:40] LABS: INR 1.4; Prothrombin Time 16.3 Seconds (11.1-14.7)
[2022-01-06 06:52] LABS: Partial Thromboplastin Time 33.6 SECONDS (22.3-36.8)
[2022-01-06 07:15] LABS: Basophils Percent Auto 0.4 % (0.2-1.2); Eosinophils Absolute Auto 0.4 K/mm3 (0-0.3); Eosinophils Percent Auto 4.5 % (0-4.4); Hematocrit 25.9 % (42.0-52.0); Hemoglobin 9.1 g/dL (14.0-18.0); Immature Granulocyte Absolute 0.31 K/mm3 (0.00-0.031); Immature Granulocyte Percent A 3.1 % (0-0.5); Lymphocytes Absolute Auto 3.09 K/mm3 (0.9-3.2); Lymphocytes Percent Auto 31.3 % (18.3-44.2); Mean Corpuscular HGB Conc 35.1 g/dl (32-36); Mean Corpuscular Hemoglobin 32.5 pg (26-34); Mean Corpuscular Volume 92.5 fl (80-100); Mean Platelet Volume 9.2 fl (7.4-10.4); Monocytes Absolute Auto 1.2 K/mm3 (0.1-0.6); Monocytes Percent Auto 12.1 % (2.6-8.5); Neutrophils Absolute Auto 4.8 K/mm3 (1.3-6.7); Neutrophils Percent Auto 48.6 % (45.5-73.1); Platelet Count Result 289 k/mm3 (150-375); Red Cell Distribution Width 22.3 % (11.5-14.5); White Blood Count 9.9 K/mm3 (4.5-10.0)
[2022-01-06 07:22] LABS: Anisocytosis 2+ (NORMAL); Macrocytosis 1+ (NORMAL); Microcytosis 1+ (NORMAL); Platelet Estimate Adequate (Adequate)
[2022-01-06 07:24] LABS: Crenated RBC 1+ (NORMAL); Hypochromasia 1+ (NORMAL); Ovalocytes 1+ (NORMAL)
[2022-01-06 07:25] LABS: Schistocytes 1+ (NORMAL)
[2022-01-06] MEDS: PANTOPRAZOLE SODIUM IV 40 MG VIAL IV PUSH ×2 (08:13→20:26)
--- NOTE | 2022-01-06 09:12 | WPDGIPROGNO ---
Progress Note: A&P Assessment and Plan (1) Morbid obesity due to excess calories: Code(s): E66.01 - Morbid (severe) obesity due to excess calories Status: Acute (2) Cholecystitis: Code(s): K81.9 - Cholecystitis, unspecified Status: Acute Assessment and Plan: Patient admitted with cholecystitis. Now improving with cholecystotomy tube. Surgery following. Patient on broad-spectrum antibiotic coverage. Sepsis appears to largely be improved at this time. (3) Confusion: Code(s): R41.0 - Disorientation, unspecified Status: Acute Assessment and Plan: Patient snf resident likely has underlying dementia. His confusion could be related to his acute medical illness. Subjective Date/time seen: 01/06/22 09:12 Patient alert peers comfortable this morning. Apparently tolerating diet. He appears at his baseline level of mental status. Suspect he has some dementia. Only oriented x1. Review of Systems Review of Systems: Review of systems noncontributory. Exam Narrative: Physical exam reveals patient be alert lying in bed. Reports no specific complaints. HEENT exam reveals no icterus. Lungs are clear. Heart without murmur. Abdomen obese bowel sounds are present soft nontender cholecystotomy tube in place. Objective Data Vital Signs Vital Signs: Vital Signs - 24 hr 01/05/22 10:46 01/05/22 12:00 01/05/22 14:46 Temperature 98.0 F 98.7 F Pulse Rate 106 H 108 H 128 H Respiratory Rate 18 18 Blood Pressure 126/72 139/84 Pulse Oximetry 97 99 01/05/22 16:00 01/05/22 18:40 01/05/22 22:32 Temperature 98.1 F 98.1 F Pulse Rate 114 H 129 H 128 H Respiratory Rate 18 20 Blood Pressure 133/71 130/71 Pulse Oximetry 98 98 01/06/22 02:14 01/06/22 06:00 Temperature 97.4 F L 97.2 F L Pulse Rate 125 H 126 H Respiratory Rate 20 20 Blood Pressure 142/72 H 147/96 H Pulse Oximetry 98 98 Intake/Output Intake/Output: Intake & Output 01/03/22 01/04/22 01/05/22 01/06/22 23:59 23:59 23:59 23:59 Intake Total 8037 027 7507 500 Output Total 387 463 3704 600 Balance 315 110 110 -100 Meds/Results Medications: Active Medications Generic Name Dose Route Start Last Admin Trade Name Arturoq PRN Reason Stop Dose Admin Acetaminophen 650 mg 01/02/22 18:24 01/04/22 09:03 Acetaminophen Elixir 325 Mg/10.15 Ml Udc PO 650 mg Q6H PRN Administration Mild Pain (1-3) or Fever Dextrose 12.5 gm 12/31/21 18:46 01/03/22 23:49 Dextrose 50% 25 Gm/50 Ml Syringe IV PUSH 12.5 gm PRN PRN Administration Hypoglycemia Protocol Enoxaparin Sodium 100 mg 12/31/21 10:30 01/01/22 08:30 Enoxaparin 100 Mg/Ml Syringe SUB-Q 100 mg Q12HR MYA Administration Glucagon 1 mg 12/31/21 18:46 Glucagon For Inj 1 Mg Vial IM PRN PRN Hypoglycemia Protocol Glucose 15 gm 12/31/21 18:46 Glucose Oral Gel 15 Gm Of Glucse In 37.5 Gm Tube PO PRN PRN Hypoglycemia Protocol Dextrose 1,000 mls @ 100 mls/hr 12/31/21 18:46 Dextrose 5% 1,000 Ml IVPB PRN PRN Hypoglycemia Protocol Piperacillin Sod/Tazobactam 100 mls @ 200 mls/hr 01/02/22 12:00 01/06/22 05:41 Sod 4.5 gm/ Sodium Chloride IVPB 200 mls/hr Q6HR MYA Administration Melatonin 5 mg 01/06/22 21:00 Melatonin 5 Mg Tablet PO HS MYA Ondansetron HCl 4 mg 01/04/22 11:52 01/04/22 12:03 Ondansetron Inj 4 Mg/2 Ml Vial IV PUSH 4 mg Q4H PRN Administration Nausea And Vomiting Pantoprazole Sodium 40 mg 01/01/22 21:00 01/06/22 08:13 Pantoprazole Sodium Iv 40 Mg Vial IV PUSH 40 mg Q12HR MYA Administration Sodium Chloride 10 ml 12/30/21 14:00 01/06/22 05:42 Central Line Flush IV PUSH 10 ml Q8HR MYA Administration Sodium Chloride 10 ml 12/30/21 18:00 01/05/22 17:55 Central Line Flush IV PUSH 10 ml DAILY@1800 MYA Administration Sodium Chloride 20 ml 12/30/21 07:57 Central [place]cca
--- NOTE | 2022-01-06 10:47 | PM.IMPN ---
Progress Note: A&P Assessment and Plan (1) Sepsis: Code(s): A41.9 - Sepsis, unspecified organism Status: Acute (2) Cholecystitis: Code(s): K81.9 - Cholecystitis, unspecified Status: Acute (3) Pericardial effusion: Code(s): I31.3 - Pericardial effusion (noninflammatory) Status: Acute (4) Essential hypertension: Code(s): I10 - Essential (primary) hypertension Status: Acute (5) Coronary artery disease: Code(s): I25.10 - Atherosclerotic heart disease of [place] coronary artery without angina pectoris Status: Acute (6) DVT (deep venous thrombosis): Code(s): I82.409 - Acute embolism and thrombosis of unspecified deep veins of unspecified lower extremity Status: Acute (7) PAD (peripheral artery disease): Code(s): I73.9 - Peripheral vascular disease, unspecified Status: Acute (8) Elevated troponin: Code(s): R77.8 - Other specified abnormalities of plasma proteins Status: Acute (9) Major depressive disorder, single episode, unspecified: Code(s): F32.9 - Major depressive disorder, single episode, unspecified Status: Acute (10) Hypertension: Code(s): I10 - Essential (primary) hypertension Status: Acute Plan 01/02/22 Patient with septic shock most likely 2/2 UTI and cholescystitis being treated with Zosyn and vancomycin, and being hydrated, s/p cholecystostomy tube placed by IR on 12/30, today the tube is clogged and IR will replace the tube today, patient clinicall sympotms are improving, Bile culture is pending, urine cultue is growing Proteus Mirabilis mills sensitive,being treated with Zosyn and vancomcin, white counts are tending down and fever, now with NG tube, patient is somnolent unable to provider detail ROS, patient is surgery service recommending conservative management, patient is seen by seam taper machine off pressors, and appreciate, will continue to follow the patient. 01/03/22 on abx PCT draining sanguinous fluid INR elevated 1.8 down trending surgery/IR managing drain 40mEq of K given in am and pm am labs following K an Hgb 01/04/22 pt seen by ICU physician 01/05/22 pt now on gen med floor he is stable still confused seen by oncology + h/o hemolytic anemia; not actively hemolyzing; recommends to monitor disease process w LDH and indirect bilirubin cont abx for cholecystitis surgery managing drain recommend followup ?outpt to setup cholangiogram thru tube prior to removal am labs ordered 01/06/22 cont to improve K repleted anticipate dc on Augmentin or cipro/flagyl defer to surgeon's preference has (received 8days of abx) cont current care pending surgical clearance for dc back to [facility] Subjective Date/time seen: 01/06/22 10:47 pt doing ok very talkative today, still nonsensical but friendly and cooperative Review of Systems Review of Systems: All systems reviewed & are unremarkable except as noted in HPI and below Exam Narrative: GEN: comfortable, NAD talkative but nonsensical HEENT: eyes are clear EOMI LUNGS: normal respiratory effort ABD: soft distended TTP at site of PCT,draining green/yellow fluid : no romano catheter Lower extremities: no edema Objective Data Vital Signs Vital Signs: Vital Signs - 24 hr 01/05/22 22:32 01/06/22 02:14 01/06/22 06:00 Temperature 98.1 F 97.4 F L 97.2 F L Pulse Rate 128 H 125 H 126 H Respiratory Rate 20 20 20 Blood Pressure 130/71 142/72 H 147/96 H Pulse Oximetry 98 98 98 Oxygen Delivery 01/06/22 10:00 01/06/22 08:13 01/06/22 08:13 Temperature 97.5 F L Pulse Rate 103 H 101 H Respiratory Rate 14 Blood Pressure 130/78 Pulse Oximetry 98 Oxygen Delivery Room Air 01/06/22 14:00 01/06/22 12:00 01/06/22 18:00 Temperature 97.9 F 98.4 F Pulse Rate 108 H 105 H 105 H Respiratory Rate 14 16 Blood Pressure 127/82 129/80 Pulse Oximetry 99 97 Oxygen Delivery 01/06/22 16:00 Temperature
[2022-01-06] MEDS: POTASSIUM CHLORIDE 20 MEQ TABLET 40 MEQ PO (12:56)
[2022-01-07] VITALS (12 sets, daily range): BP systolic 121–140; BP diastolic 67–86; PULSE 68–128; RESP 14–21; TEMP 36.1–36.8; O2SAT 94–100
[2022-01-07] MEDS: ACETAMINOPHEN 500 MG TABLET 1000 MG PO (05:58)
[2022-01-07] MEDS: PIPERACILLIN/TAZOBACTAM SOD 4.5 GM in SODIUM CHLORIDE 0.9% IV 100 ML 200 ML IVPB ×3 (06:02→23:49)
[2022-01-07] MEDS: CENTRAL LINE FLUSH 10 ML IV PUSH ×4 (06:18→23:49)
[2022-01-07] MEDS: PANTOPRAZOLE SODIUM IV 40 MG VIAL IV PUSH ×2 (07:55→20:26)
[2022-01-07 08:02] LABS: INR 1.4; Prothrombin Time 16.4 Seconds (11.1-14.7)
[2022-01-07 08:03] LABS: Partial Thromboplastin Time 30.8 SECONDS (22.3-36.8)
[2022-01-07 08:11] LABS: Alanine Aminotransferase 10 U/L (6-50); Albumin Level 3.8 g/dL (3.5-5.1); Alkaline Phosphatase 50 U/L (38-126); Anion Gap 15 mmol/L (8-16); Aspartate Amino Transferase 23 U/L (17-59); Bilirubin,Total 0.9 mg/dL (0.2-1.3); Blood Urea Nitrogen 5 mg/dL (9-20); Calcium 8.6 mg/dL (8.4-10.2); Carbon Dioxide 22 mmol/L (22-30); Chloride 104 mmol/L (98-107); Estimated CRCL calculation 112 ml/min; Estimated Glomerular Filt Rate > 60; Glucose 98 mg/dL (65-110); Magnesium 1.9 mg/dL (1.6-2.3); Phosphorus 2.4 mg/dL (2.5-4.5); Potassium 3.3 mmol/L (3.4-5.0); Sodium 141 mmol/L (137-145)
[2022-01-07 08:46] LABS: Basophils Percent Auto 0.2 % (0.2-1.2); Eosinophils Absolute Auto 0.4 K/mm3 (0-0.3); Eosinophils Percent Auto 3.9 % (0-4.4); Hematocrit 24.8 % (42.0-52.0); Hemoglobin 8.6 g/dL (14.0-18.0); Immature Granulocyte Absolute 0.22 K/mm3 (0.00-0.031); Immature Granulocyte Percent A 2.1 % (0-0.5); Lymphocytes Absolute Auto 2.59 K/mm3 (0.9-3.2); Lymphocytes Percent Auto 25.2 % (18.3-44.2); Mean Corpuscular HGB Conc 34.7 g/dl (32-36); Mean Corpuscular Hemoglobin 32.6 pg (26-34); Mean Corpuscular Volume 93.9 fl (80-100); Mean Platelet Volume 9.1 fl (7.4-10.4); Monocytes Percent Auto 9.6 % (2.6-8.5); Neutrophils Absolute Auto 6.1 K/mm3 (1.3-6.7); Platelet Count Result 307 k/mm3 (150-375); Red Blood Count 2.64 M/mm3 (4.6-6.20); Red Cell Distribution Width 22.5 % (11.5-14.5); White Blood Count 10.3 K/mm3 (4.5-10.0)
[2022-01-07 08:48] LABS: Platelet Clumps Present; Platelet Estimate Adequate (Adequate)
[2022-01-07 08:49] LABS: Acanthocytes 2+ (NORMAL); Anisocytosis 1+ (NORMAL); Hypochromasia 1+ (NORMAL); Ovalocytes 1+ (NORMAL); Schistocytes 1+ (NORMAL)
--- NOTE | 2022-01-07 10:46 | ECG_ITS ---
Measurements Intervals [place] Rate: 116 P: 43 AR: 164 QRS: 38 QRSD: 109 T: 199 QT: 338 QTc: 470 Interpretive Statements SINUS TACHYCARDIA LOW QRS VOLTAGE IN PRECORDIAL LEADS [QRS DEFLECTION < 1.0 mV IN CHEST LEADS] INFERIOR MYOCARDIAL INFARCTION , PROBABLY OLD [40+ ms Q WAVE AND/OR ST/T ABNORMALITY IN II/aVF] NONSPECIFIC ST-T WAVE ABNORMALITY COMPARED TO ECG 12/29/2021 16:26:48 NO SIGNIFICANT CHANGES Electronically Signed On 01-08-2022 11:23:51 CDT by Luis Miguel Vincent M.D.
[2022-01-07] MEDS: ACETAMINOPHEN ELIXIR 325 MG/10.15 ML UDC 650 MG PO (11:05)
[2022-01-07] MEDS: METOPROLOL TARTRATE 12.5 MG TABLET PO ×2 (13:20→23:48)
[2022-01-07 14:10] LABS: EDCOVIDSCREEN Negative (Negative)
[2022-01-07] MEDS: PIPERACILLIN/TAZOBACTAM SOD 4.5 GM in SODIUM CHLORIDE 0.9% IV 100 ML IVPB (17:25)
--- NOTE | 2022-01-07 18:49 | PM.IMPN ---
Progress Note: A&P Assessment and Plan (1) Sepsis: Code(s): A41.9 - Sepsis, unspecified organism Status: Acute (2) Cholecystitis: Code(s): K81.9 - Cholecystitis, unspecified Status: Acute (3) Pericardial effusion: Code(s): I31.3 - Pericardial effusion (noninflammatory) Status: Acute (4) Essential hypertension: Code(s): I10 - Essential (primary) hypertension Status: Acute (5) Coronary artery disease: Code(s): I25.10 - Atherosclerotic heart disease of [place] coronary artery without angina pectoris Status: Acute (6) DVT (deep venous thrombosis): Code(s): I82.409 - Acute embolism and thrombosis of unspecified deep veins of unspecified lower extremity Status: Acute (7) PAD (peripheral artery disease): Code(s): I73.9 - Peripheral vascular disease, unspecified Status: Acute (8) Elevated troponin: Code(s): R77.8 - Other specified abnormalities of plasma proteins Status: Acute (9) Major depressive disorder, single episode, unspecified: Code(s): F32.9 - Major depressive disorder, single episode, unspecified Status: Acute (10) Hypertension: Code(s): I10 - Essential (primary) hypertension Status: Acute Plan 01/02/22 Patient with septic shock most likely 2/2 UTI and cholescystitis being treated with Zosyn and vancomycin, and being hydrated, s/p cholecystostomy tube placed by IR on 12/30, today the tube is clogged and IR will replace the tube today, patient clinicall sympotms are improving, Bile culture is pending, urine cultue is growing Proteus Mirabilis mills sensitive,being treated with Zosyn and vancomcin, white counts are tending down and fever, now with NG tube, patient is somnolent unable to provider detail ROS, patient is surgery service recommending conservative management, patient is seen by quality project manager off pressors, and appreciate, will continue to follow the patient. 01/03/22 on abx PCT draining sanguinous fluid INR elevated 1.8 down trending surgery/IR managing drain 40mEq of K given in am and pm am labs following K an Hgb 01/04/22 pt seen by ICU physician 01/05/22 pt now on gen med floor he is stable still confused seen by oncology + h/o hemolytic anemia; not actively hemolyzing; recommends to monitor disease process w LDH and indirect bilirubin cont abx for cholecystitis surgery managing drain recommend followup ?outpt to setup cholangiogram thru tube prior to removal am labs ordered 01/06/22 cont to improve K repleted anticipate dc on Augmentin or cipro/flagyl defer to surgeon's preference has (received 8days of abx) cont current care pending surgical clearance for dc back to [place] 01/07/22 Patient cleared by all services for [facility] He is cleared to restart full-dose anticoagulation Marinol will be started for appetite stimulant Calorie count prior to discharge Family declines feeding tube Patient is in pattern of failure to thrive superimposed on dementia and recent significant infection. It is unclear at this time if he will improve her continued his functional decline anticipate a return to prison tomorrow Subjective Date/time seen: 01/07/22 18:49 long discussion w and daughter today they are concerned that Juan Pablo is being discharged to soon from the hospital. I advise them that he has been hospitalized for 10 days and has been out of the ICU stable on a medical floor for 5 days. They raise concern he is not eating. Pt is on a pureed diet w and does not like the food. Family has been bringing him in food from outside not pureed diet but he has not eaten any from my understanding. I agree to start appetite stimulant. Calorie count, for clarification. Family does not want feeding tube. dc tomorrow after count complete Daughter asks me to assure her that she will not receive a call in the middle of the night that her father has . She
[2022-01-07] MEDS: ENOXAPARIN 120 MG/0.8 ML SYRINGE 113 MG SUB-Q (20:24)
[2022-01-07] MEDS: MELATONIN 5 MG TABLET PO (20:26)
[2022-01-08] VITALS (9 sets, daily range): BP systolic 110–137; BP diastolic 65–90; PULSE 85–108; RESP 14–16; TEMP 36.5–36.6; O2SAT 91–99
[2022-01-08 05:29] LABS: Anion Gap 11 mmol/L (8-16); Blood Urea Nitrogen 5 mg/dL (9-20); Calcium 8.8 mg/dL (8.4-10.2); Carbon Dioxide 27 mmol/L (22-30); Chloride 104 mmol/L (98-107); Estimated CRCL calculation 112 ml/min; Estimated Glomerular Filt Rate > 60; Glucose 102 mg/dL (65-110); Potassium 2.9 mmol/L (3.4-5.0); Sodium 142 mmol/L (137-145)
[2022-01-08 05:46] LABS: Basophils Absolute Auto 0.1 K/mm3 (0.0-0.1); Basophils Percent Auto 0.5 % (0.2-1.2); Eosinophils Absolute Auto 0.5 K/mm3 (0-0.3); Eosinophils Percent Auto 4.6 % (0-4.4); Hemoglobin 8.9 g/dL (14.0-18.0); Immature Granulocyte Absolute 0.17 K/mm3 (0.00-0.031); Immature Granulocyte Percent A 1.6 % (0-0.5); Lymphocytes Absolute Auto 3.49 K/mm3 (0.9-3.2); Mean Corpuscular HGB Conc 37.1 g/dl (32-36); Mean Corpuscular Hemoglobin 36.6 pg (26-34); Mean Corpuscular Volume 98.8 fl (80-100); Monocytes Absolute Auto 1.1 K/mm3 (0.1-0.6); Monocytes Percent Auto 10.1 % (2.6-8.5); Neutrophils Absolute Auto 5.6 K/mm3 (1.3-6.7); Neutrophils Percent Auto 51.2 % (45.5-73.1); Platelet Count Result 314 k/mm3 (150-375); Red Blood Count 2.43 M/mm3 (4.6-6.20); Red Cell Distribution Width 25.4 % (11.5-14.5); White Blood Count 10.9 K/mm3 (4.5-10.0)
[2022-01-08] MEDS: TOLNAFTATE 1% POWDER 45 GM BTL 1 APPLIC TOPICAL (06:06)
[2022-01-08] MEDS: PIPERACILLIN/TAZOBACTAM SOD 4.5 GM in SODIUM CHLORIDE 0.9% IV 100 ML 200 ML IVPB (06:06)
[2022-01-08 07:11] LABS: Crenated RBC 1+ (NORMAL); Platelet Estimate Adequate (Adequate)
[2022-01-08 07:12] LABS: Macrocytosis 1+ (NORMAL)
[2022-01-08 07:13] LABS: Schistocytes 1+ (NORMAL)
[2022-01-08] MEDS: PANTOPRAZOLE SODIUM IV 40 MG VIAL IV PUSH (08:16)
[2022-01-08] MEDS: CENTRAL LINE FLUSH 10 ML IV PUSH (08:17)
[2022-01-08] MEDS: ENOXAPARIN 120 MG/0.8 ML SYRINGE 113 MG SUB-Q (08:17)
[2022-01-08] MEDS: METOPROLOL TARTRATE 12.5 MG TABLET PO ×2 (08:17→13:06)
[2022-01-08] MEDS: ACETAMINOPHEN ELIXIR 325 MG/10.15 ML UDC 650 MG PO (10:49)
--- NOTE | 2022-01-08 10:55 | PCDIET ---
Calorie count has been initiated. Nursing is aware. Diet order has been upgraded to Easy to Chew, Level/Low Fat diet due to no teeth. Ensure Compact remains on trays BID for additional 220 kcals and 9 gms protein. Hoping diet order change will improve food options and oral intake. Following.
--- NOTE | 2022-01-08 11:21 | PM.DS ---
DS: Admitting Diagnosis Discharge Date 01/08/22 Admitting Diagnosis (1) Sepsis: ?Code(s): (2) Cholecystitis: ?Code(s): (3) Pericardial effusion: ?Code(s): (4) Essential hypertension: ?Code(s): (5) Coronary artery disease: ?Code(s): (6) DVT (deep venous thrombosis): ?Code(s): (7) PAD (peripheral artery disease): ?Code(s): (8) Elevated troponin: ?Code(s): (9) Major depressive disorder, single episode, unspecified: ?Code(s): (10) Hypertension: ?Code(s): DS: Discharge Diagnosis Discharge Diagnosis (1) Failure to thrive in adult: Code(s): R62.7 - Adult failure to thrive Status: Acute (2) Confusion: Code(s): R41.0 - Disorientation, unspecified Status: Acute (3) Coagulopathy: Code(s): D68.9 - Coagulation defect, unspecified Status: Acute (4) Electrolyte abnormality: Code(s): E87.8 - Other disorders of electrolyte and fluid balance, not elsewhere classified Status: Acute (5) Anemia: Code(s): D64.9 - Anemia, unspecified Status: Acute (6) UTI (urinary tract infection): Code(s): N39.0 - Urinary tract infection, site not specified Status: Acute (7) Septic shock: Code(s): A41.9 - Sepsis, unspecified organism; R65.21 - Severe sepsis with septic shock Status: Acute (8) Sepsis: Code(s): A41.9 - Sepsis, unspecified organism Status: Acute (9) Cholecystitis: Code(s): K81.9 - Cholecystitis, unspecified Status: Acute (10) Essential hypertension: Code(s): I10 - Essential (primary) hypertension Status: Acute (11) Morbid obesity due to excess calories: Code(s): E66.01 - Morbid (severe) obesity due to excess calories Status: Acute (12) Coronary artery disease: Code(s): I25.10 - Atherosclerotic heart disease of [place] coronary artery without angina pectoris Status: Acute (13) Hypertension: Code(s): I10 - Essential (primary) hypertension Status: Acute (14) Major depressive disorder, single episode, unspecified: Code(s): F32.9 - Major depressive disorder, single episode, unspecified Status: Acute (15) Neuropathy: Code(s): G62.9 - Polyneuropathy, unspecified Status: Acute (16) PAD (peripheral artery disease): Code(s): I73.9 - Peripheral vascular disease, unspecified Status: Acute DS: Summary Hospital Course Reason for hospitalization: Chief Complaint: ? Altered mental status Narrative: ?this is a 71 year old male patient who is from [facility].? The patient is confused and is not able to answer questions so most of the information was obtained from the? Hospital records and the assisted records. the patient has a history of coronary artery disease status post stenting, diabetes, dementia, and recently pericardial effusion noted on CTA echo without tamponade thought possibly secondary to pericarditis.? At the facility the patient had decreased responsiveness and low blood pressure.? Initially his blood pressure was found to be 101/72 and then it dropped down 80/56 at 1 time.? The patient was given IV fluids and his blood pressure came up to 129/81.? His white count is noted to be 36.1.? Lactic was found to be 3.8.? Troponin 0.037 and previous 0.062.? This appears to be his baseline.? C reactive protein 33.8.? The patient was found to be positive for UTI.? COVID is negative.? Patient was started on lactated Ringer's and started on Zosyn and vancomycin.? He was also given Rocephin in the emergency room.? Abdominal pelvis CT was read as the following 1. Acute cholecystitis. 2. Bladder stones. 3. Small pleural effusions. 4. Small pericardial effusion with improvement from 12/11/2021. ?surgery has been consulted.? Head CT was read as mild nonspecific cerebral white matter disease which likely represents chronic small vessel ischemic disease worse
[2022-01-08] MEDS: KCL 20 MEQ/SW 100 ML 100 ML 50 MEQ IVPB (11:26)
[2022-01-08] MEDS: POTASSIUM CHLORIDE 20 MEQ PACKET (FOR LIQUID) 40 MEQ PO (11:31)
[2022-01-10 13:00] LABS: Haptoglobin 227 mg/dL (43-212)
== END 2022-01-08 20:00 | DRG 871 ==
LOC: ANHED 16:54 → ANHIMU 23:17 → ANHICU 12-30 06:15 → ANH2MED 01-04 15:57
PROVIDERS: Emergency Medicine; Internal Medicine; Internal Medicine Gastroenterology; Internal Medicine Hematology & Oncology; Nurse Practitioner; Physician Assistant; Admitting Provider Student in an Organized Health Care Education/Training Program; Emergency Provider General Practice; PCP Internal Medicine; Visit Provider Hospitalist
DX: A41.9 Sepsis, unspecified organism (principal); R65.21 Severe sepsis with septic shock; I31.39 Other pericardial effusion (noninflammatory); N39.0 Urinary tract infection, site not specified; K81.0 Acute cholecystitis; E87.20 Acidosis, unspecified; D68.9 Coagulation defect, unspecified; D59.9 Acquired hemolytic anemia, unspecified; T85.898A Other specified complication of other internal prosthetic devices, implants and grafts, initial encounter; I10 Essential (primary) hypertension; I25.10 Atherosclerotic heart disease of native coronary artery without angina pectoris; E11.51 Type 2 diabetes mellitus with diabetic peripheral angiopathy without gangrene; I73.9 Peripheral vascular disease, unspecified; R77.8 Other specified abnormalities of plasma proteins; F32.9 Major depressive disorder, single episode, unspecified; F03.90 Unspecified dementia, unspecified severity, without behavioral disturbance, psychotic disturbance, mood disturbance, and anxiety; E87.6 Hypokalemia; R62.7 Adult failure to thrive; R19.5 Other fecal abnormalities; R41.0 Disorientation, unspecified; E11.42 Type 2 diabetes mellitus with diabetic polyneuropathy; I95.9 Hypotension, unspecified; R11.14 Bilious vomiting; Z20.822 Contact with and (suspected) exposure to COVID-19; Z86.718 Personal history of other venous thrombosis and embolism; Z86.73 Personal history of transient ischemic attack (TIA), and cerebral infarction without residual deficits; Z79.01 Long term (current) use of anticoagulants; Z79.84 Long term (current) use of oral hypoglycemic drugs; Z79.02 Long term (current) use of antithrombotics/antiplatelets; Z79.82 Long term (current) use of aspirin; Z79.4 Long term (current) use of insulin; Z95.5 Presence of coronary angioplasty implant and graft; B96.4 Proteus (mirabilis) (morganii) as the cause of diseases classified elsewhere; E66.01 Morbid (severe) obesity due to excess calories; Z68.38 Body mass index [BMI] 38.0-38.9, adult; Y73.8 Miscellaneous gastroenterology and urology devices associated with adverse incidents, not elsewhere classified
CPT/HCPCS: 36415; 36430; 47490; 51701; 70450; 71045; 74176; 76705; 80048; 80053; 80202; 80307; 81001; 82140; 82247; 82248; 82274; 82550; 82565; 82607; 82728; 82746; 82948; 83010; 83540; 83550; 83605; 83615; 83690; 83735; 84100; 84443; 84484; 85025; 85027; 85046; 85055; 85380; 85384; 85610; 85652; 85730; 86140; 86850; 86860; 86870; 86880; 86900; 86901; 86905; 86922; 87040; 87070; 87075; 87077; 87086; 87088; 87186; 87205; 87426; 92610; 93005; 93970; 96361; 96365; 99285; A9270; C1751; C9113; C9803; J0131; J0610; J0696; J1650; J1940; J2250; J2405; J2543; J3370; J3430; J3475; J3480; J7030; J7040; J7050; J7120; P9016; P9017; P9047; U0003; U0005

== ENCOUNTER 2022-01-23 16:13 | Inpatient (IN) | payer OTHER, MEDICAID, SELFPAY ==
[2022-01-23] VITALS (50 sets, daily range): BP systolic 95–133; BP diastolic 55–92; PULSE 125–134; RESP 9–28; TEMP 36.8; O2SAT 97–100; BMI 32.3
--- NOTE | ~2022-01-23 | NM_ITS ---
EXAMINATION: NM hepatobiliary w pharm DATE: 01/26/2022 13:54 INDICATION: Acute cholecystitis. Vomiting. COMPARISON: CT abdomen and pelvis 01/23/2022 TECHNIQUE: 4.7 mCi Tc-99m mebrofenin (Choletec) was administered intravenously. Scintigraphic images of the abdomen were obtained for one hour. Then, 2 mg morphine IV was administered, and imaging was continued for 30 minutes. FINDINGS: There is normal clearance of radiotracer from the blood pool. There is homogeneous tracer u ptake by the liver. Activity progresses to the bowel. There is no activity in the gallbladder. IMPRESSION: 1. Acute cholecystitis. Reviewed, dictated and finalized at location A. IMPRESSION: 1. Acute cholecystitis.
--- NOTE | ~2022-01-23 | US_ITS ---
EXAMINATION: US venous doppler UE DATE: 02/05/2022 17:42 INDICATION: Edema. TECHNIQUE: Grayscale ultrasound images without and with compression and Doppler ultrasound images of the bilateral upper extremity veins were obtained. COMPARISON: None.. FINDINGS: Exam limited by body habitus The visualized portions of the bilateral internal jugular vein, subclavi an vein, axillary vein, brachial veins, basilic vein, cephalic vein, radial vein, and ulnar vein are patent. IMPRESSION: 1. No deep venous thrombosis. Reviewed, dictated and finalized at location K. 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
--- NOTE | ~2022-01-23 | CT_ITS ---
EXAMINATION: CT abdomen pelvis w con DATE: 01/23/2022 18:43 INDICATION: Patient pulled out abdominal drain TECHNIQUE: Computed tomography (CT) of the abdomen and pelvis was performed with 100 CC Omnipaque 350 intravenous contrast. Automated exposure control and iterative reconstruction technique were employe d. Exam dose: 1412.94 mGy-cm total exam DLP. COMPARISON: 12/2021 Limited abdominal ultrasound examination 01/01/2022 CT abdomen pelvis FINDINGS: There is diminished small left pleural effusion and interval resolution of right pleural ef fusion since 01/01/2022. There is mild bilateral lower lobe dependent atelectasis, left greater than r ight. Cardiomegaly. Small pericardial effusion. Coronary artery calcifications. The cholecystostomy catheter is absent since 01/01/2022. There is moderate distention of the gallbladd er, gallbladder wall thickening and possible cholelithiasis. No bile duct dilatation. No hepatic, splenic, pancreatic, and adrenal space-occupying mass lesion. No pancreatic duct dilatati on. There are calcified splenic granulomas consistent with old granulomatous disease. No suspicious renal space-occupying mass lesion or urinary tract calculus or hydroureteronephrosis is detected. There is atherosclerotic calcification of the abdominal aortic and iliac and femoral arter ies but no aneurysm. No intraperitoneal or retroperitoneal or pelvic mass lesion or adenopathy or asc ites. 2. Large calculi are noted in the dependent aspect of the urinary bladder. These measure up to approx imately 2 cm. No bladder wall thickening or perivesical fat stranding. The seminal vesicles and prost ate gland are unremarkable. Bilateral fat-containing inguinal hernias. No bowel obstruction, bowel wall thickening, pneumatosis or intraperitoneal free air. Small fat-containing umbilical hernia. Severe degenerative changes of the thoracic and lumbar spine. IMPRESSION: Interval removal of cholecystostomy catheter since 01/01/2022 Cardiomegaly, small pericardial effusion Extensive coronary and abdominal aorta and iliac calcified atherosclerosis Resolution of right and diminished left pleural effusion since 01/01/2022 Bilateral dependent lower lobe atelectasis, left greater than right Large bladder stones Bilateral fat-containing inguinal hernias Reviewed, dictated and finalized at Location A. Reviewed, dictated and finalized at location A.
--- NOTE | ~2022-01-23 | CT_ITS ---
EXAMINATION: CT abdomen pelvis wo con DATE: 02/02/2022 12:09 INDICATION: Nausea. Diffuse abdominal pain. TECHNIQUE: Computed tomography (CT) of the abdomen and pelvis was performed without intravenous contr ast. Automated exposure control and iterative reconstruction technique were employed. The dose-length product was 1595.17 mGy-cm. COMPARISON: 01/23/2022 FINDINGS: Small bilateral pleural effusions with dependent compressive atelectasis in the bilateral lower lobes . Calcified nodule in the atelectatic left lower lobe along with calcified left hilar lymph nodes and multiple splenic calcific lesions consistent with old granulomatous disease. Cardiomegaly. Atheroscl erotic coronary artery calcifications. Small pericardial effusion. Interval cholecystectomy with 6.0 x 4.7 x 3.2 cm complex fluid collection with greater than simple fluid attenuation and small focus of gas at the gallbladder fossa which could represent a hematoma or abscess. A surgical drain extends a cross inferior aspect of the gallbladder fossa and along the posterior inferior margin of the complex fluid collection. Additional small amount of ascites and free intraperitoneal gas along the anterior margin of the liver. Mild fatty infiltration of the pancreas. Bilateral adrenal glands and kidneys a re normal. No bowel obstruction. The appendix is not visualized. No pericecal inflammatory change to suggest acute appendicitis. Mora catheter and bladder stones within the bladder. Small bilateral fat -containing inguinal hernias. No pathologically enlarged abdominal and pelvic lymphadenopathy. S-shap ed lumbar scoliosis with severe thoracic and lumbar spondylosis. IMPRESSION: 1. Postoperative change of recent cholecystectomy with 6.0 x 4.7 x 3.2 cm complex fluid collection at the gallbladder fossa along side a surgical drain which could represent a hematoma or abscess in the appropriate clinical setting. 2. Additional small amount of nonloculated ascites in the abdomen . 3. Small bilateral pleural effusions. 4. Cardiomegaly with unchanged small pericardial effusion. 5. Small bilateral fat-containing inguinal hernias. Reviewed, dictated and finalized at location B. IMPRESSION: 1. Postoperative change of recent cholecystectomy with 6.0 x 4.7 x 3.2 cm compl ex fluid collection at the gallbladder fossa along side a surgical drain which could represent a hematoma or abscess in the appropriate clinical setting. 2. Additional small amount of nonloculated ascites in the abdomen . 3. Small bilateral pleural effusions. 4. Cardiomegaly with unchanged small pericardial effusion. 5. Small bilateral fat-containing inguinal hernias.
--- NOTE | ~2022-01-23 | NM_ITS ---
EXAMINATION: NM hepatobiliary wo pharm DATE: 02/02/2022 16:46 INDICATION: Assess for bile leak COMPARISON: CT dated 02/02/2022 TECHNIQUE: 5 mCi Tc-99m mebrofenin (Choletec) was administered intravenously. Scintigraphic images o f the abdomen were obtained for one hour. FINDINGS: There is normal clearance of radiotracer from the blood pool. There is homogeneous tracer u ptake by the liver. Activity progresses to the bowel, first evident in the duodenum at 15 minutes an d with progressive accumulation in the jejunum in the left upper quadrant of the following 45 minutes . No gallbladder activity consistent with recent cholecystectomy. No evident bile leak. IMPRESSION: 1. Expected appearance post cholecystectomy with no bile leak. Reviewed, dictated and finalized at location B.
--- NOTE | ~2022-01-23 | CT_ITS ---
EXAMINATION: CT brain wo con DATE: 01/27/2022 15:25 INDICATION: altered mental status . TECHNIQUE: Computed tomography (CT) of the head was performed without intravenous contrast. The mA wa s adjusted according to patient size. Iterative reconstruction technique was employed. The dose-lengt h product was 605.33 mGy-cm. COMPARISON: 12/29/2021 FINDINGS: No acute intracranial hemorrhage or extra-axial fluid collection. No hydrocephalus, mass, or herniation. No acute ischemic infarct. Unremarkable dural venous sinus attenuation. No acute osseous abnormality. The aerated spaces are clear. Mild atrophy and chronic white matter change. Atherosclerotic intracranial calcification. Bilateral o ld basal ganglia lacunar infarcts and old focal left centrum semiovale infarct. IMPRESSION: No acute intracranial process. Reviewed, dictated and finalized at location K.
--- NOTE | 2022-01-23 16:57 | ECG_ITS ---
Measurements Intervals [place] Rate: 127 P: 29 [place]: 211 QRS: 1 QRSD: 103 T: 49 QT: 399 QTc: 581 Interpretive Statements SINUS TACHYCARDIA LOW QRS VOLTAGE IN PRECORDIAL LEADS [QRS DEFLECTION < 1.0 mV IN CHEST LEADS] INFERIOR MYOCARDIAL INFARCTION , OF INDETERMINATE AGE [40+ ms Q WAVE AND/OR ST/T ABNORMALITY IN II/aVF] COMPARED TO ECG 01/07/2022 10:58:01 HEART RATE HAS INCREASED Electronically Signed On 01-24-2022 12:59:42 CDT by Luis Miguel Vincent M.D.
[2022-01-23 17:29] LABS: Lactic Acid Reflex 1.3 mmol/L (0.7-2.0)
[2022-01-23] MEDS: SODIUM CHLORIDE 0.9% IV 1,000 ML 999 ML IV CONT ×2 (17:50→20:37)
[2022-01-23 18:23] LABS: Alanine Aminotransferase 11 U/L (6-50); Albumin Level 4.4 g/dL (3.5-5.1); Alkaline Phosphatase 94 U/L (38-126); Anion Gap 17 mmol/L (8-16); Aspartate Amino Transferase 29 U/L (17-59); Bilirubin,Total 0.8 mg/dL (0.2-1.3); Blood Urea Nitrogen 11 mg/dL (9-20); Calcium 9.4 mg/dL (8.4-10.2); Carbon Dioxide 31 mmol/L (22-30); Chloride 96 mmol/L (98-107); Estimated CRCL calculation 74 ml/min; Estimated Glomerular Filt Rate > 60; Glucose 93 mg/dL (65-110); Lipase 44 U/L (23-300); Potassium 3.7 mmol/L (3.4-5.0); Sodium 144 mmol/L (137-145)
--- NOTE | 2022-01-23 18:33 | PC.NURSE ---
Patient off unit to CT.
[2022-01-23 18:35] LABS: Troponin I < 0.012 ng/mL (0.000-0.034)
[2022-01-23 18:49] LABS: Platelet Estimate Adequate (Adequate)
--- NOTE | 2022-01-23 18:49 | ED.GENADULT ---
HPI - General Adult General Chief complaint: Abdominal Pain <Mariusz Sinclair MD - Last Filed: 01/23/22 19:06> Stated complaint: PULLED OUT PORT <Mariusz Sinclair MD - Last Filed: 01/23/22 19:06> Time Seen by Provider: 01/23/22 16:33 <Mariusz Sinclair MD - Last Filed: 01/23/22 19:06> History of Present Illness HPI narrative: 71-year-old male with history of coronary disease, hypertension, TIA with history of DVT and recent cholecystitis presenting the emergency department for evaluation after having his cholecystostomy tube that was placed on 01/04. [facility] was concerned that he was hemorrhaging after he pulled out his cholecystostomy tube. Arrival to emergency room patient is complaining of some abdominal pain but is having no active bleeding. <Mariusz Sinclair MD - Last Filed: 01/23/22 19:06> Related Data Home medications: Home Medications Medication Instructions Recorded Confirmed acetaminophen 325 mg chewable 650 mg PO Q6H PRN Pain, Mild 12/11/21 12/30/21 tablet aspirin 81 mg chewable tablet 81 mg PO DAILY 12/11/21 12/30/21 atorvastatin 80 mg tablet 80 mg PO HS 12/11/21 12/30/21 bupropion HCl 300 mg 24 hr tablet, 300 mg PO QAM 12/11/21 12/30/21 extended release clopidogrel 75 mg tablet 75 mg PO DAILY 12/11/21 12/30/21 cyclobenzaprine 5 mg tablet 5 mg PO TID 12/11/21 12/30/21 diclofenac sodium 1 % topical gel 1 ea topical DAILY 12/11/21 12/30/21 diflorasone 0.05 % topical cream 1 applic topical DAILY 12/11/21 12/30/21 gabapentin 100 mg capsule 100 mg PO Q8H 12/11/21 12/30/21 insulin glargine 100 unit/mL (3 5 unit subcut HS 12/11/21 12/30/21 mL) subcutaneous pen pantoprazole 40 mg tablet,delayed 40 mg PO BID 12/11/21 12/30/21 release polyethylene glycol 3350 17 17 g PO DAILY 12/11/21 12/30/21 gram/dose oral powder quetiapine 25 mg tablet (Seroquel) 12.5 mg PO BID PRN Agitation 12/11/21 12/30/21 venlafaxine 75 mg tablet 150 mg PO DAILY 12/11/21 12/30/21 apixaban 5 mg tablet (Eliquis) 5 mg PO BID 12/30/21 12/30/21 linagliptin 5 mg tablet (Tradjenta) 5 mg PO DAILY 12/30/21 12/30/21 <Mariusz Sinclair MD - Last Filed: 01/23/22 19:06> Allergies/adverse reactions: Allergies Allergy/AdvReac Type Severity Reaction Status Date / Time prednisone Allergy Severe COMA FOR 1 Verified 12/29/21 20:51 YEAR <Mariusz Sinclair MD - Last Filed: 01/23/22 19:06> Review of Systems Review of Systems: CONSTITUTIONAL: Denies fever, chills, or sweats. EYES: Denies visual changes, redness, or discharge. ENT: Denies rhinorrhea, congestion, sore throat, or otalgia. CARDIOVASCULAR: Denies chest pain, palpitations, or edema. RESPIRATORY: Denies cough or dyspnea. GASTROINTESTINAL: Denies abdominal pain, nausea, vomiting, or diarrhea. GENITOURINARY: Denies dysuria or hematuria. SKIN: Denies rash or itching. MUSCULOSKELETAL: Denies back pain, joint pain, or myalgia. NEUROLOGIC: Denies headache, numbness, or weakness. <Mariusz Sinclair MD - Last Filed: 01/23/22 19:06> [facility] Past Medical History Medical History: Medical History Coronary artery disease DVT (deep venous thrombosis) Effusion, pericardium Essential hypertension History of GI bleed History of TIA (transient ischemic attack) Morbid obesity due to excess calories PAD (peripheral artery disease) <Mariusz Sinclair MD - Last Filed: 01/23/22 19:06> Surgical History Surgical History: Surgical History History of ankle surgery <Mariusz Sinclair MD - Last Filed: 01/23/22 19:06> Family History Family History: Family History Father Family history of malignant neoplasm Mother Family history of heart disease in male family member before age 55 Hypertension Family history of cardiovascular disease <Mariusz Sinclair MD - Last Filed: 01/23/22
[2022-01-23 18:50] LABS: Crenated RBC 2+ (NORMAL)
[2022-01-23 18:51] LABS: Anisocytosis 1+ (NORMAL); Schistocytes None Seen (NORMAL)
[2022-01-23] MEDS: MORPHINE SULFATE (*CRX) 2 MG/ML INJ IV PUSH (19:19)
[2022-01-23 20:46] LABS: Add Urine Microscopic? YES; Appearance Urine Cloudy (Clear); Bilirubin Urine Negative (Negative); Blood Urine 1+ (Negative); Color Urine Yellow (Yellow); Glucose Urine UA Negative (Negative); Ketones Urine Trace mg/dL (Negative); Leukocyte Esterase Ur 2+ LEU/UL (Negative); Mucus Urine Rare /lpf; Nitrate Urine Negative (Negative); Protein Urine Negative (Negative); Specific Grav Ur 1.017 (1.001-1.035); Squamous Epithelial Cell Urine Rare /hpf (Few); Urobilinogen Urine Negative mg/dL (<2.0); WBC Urine 31-50 /hpf
[2022-01-23] MEDS: MORPHINE SULFATE (*CRX) 4 MG/ML INJ IV PUSH (20:49)
--- NOTE | 2022-01-23 21:09 | PM.IMHP ---
H&P: HPI History of Present Illness Date/Time: 01/23/22 21:09 Chief Complaint: dislodged cholecystostomy drain Narrative: This is a 71-year-old male he is a long term resident, past medical history significant for coronary artery disease, dementia, hypertension, peripheral artery disease, cholecystitis status post cholecystotomy with drain placed however patient lost his cholecystostomy tube and was brought for evaluation. patient is unable to give any history due to his dementia. Preliminary workup was significant for urinalysis 30-50 white blood cells per high-power field, CT of abdomen and pelvis was reported as: IMPRESSION:? Interval removal of cholecystostomy catheter since 01/01/2022 Cardiomegaly, small pericardial effusion Extensive coronary and abdominal aorta and iliac calcified atherosclerosis Resolution of right and diminished left pleural effusion since 01/01/2022 Bilateral dependent lower lobe atelectasis, left greater than right Large bladder stones Bilateral fat-containing inguinal hernias Review of Systems Review of Systems: ROS unobtainable: Yes unobtainable due to mental status ( DEMENTIA) [facility] Past Medical History Medical History Coronary artery disease DVT (deep venous thrombosis) Effusion, pericardium Essential hypertension History of GI bleed History of TIA (transient ischemic attack) Morbid obesity due to excess calories PAD (peripheral artery disease) Surgical History Surgical History History of ankle surgery Family History Family History Father Family history of malignant neoplasm Mother Family history of heart disease in male family member before age 55 Hypertension Family history of cardiovascular disease Social History Social History Social History: the patient is from [facility] it is noted that he does not smoke. He is listed as being . He is retired. 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 He has a Jen white listed as a child. Code status full code Smoking status: Never smoker Second hand tobacco smoke exposure: Yes Alcohol intake: never Substance use: never Spiritual care concerns: No Meds Home Medications and Allergies Home Medications Medication Instructions Recorded Confirmed Type acetaminophen 325 mg chewable 650 mg PO Q6H PRN Pain, Mild 12/11/21 01/23/22 History tablet aspirin 81 mg chewable tablet 81 mg PO DAILY 12/11/21 01/23/22 History atorvastatin 80 mg tablet 80 mg PO HS 12/11/21 01/23/22 History clopidogrel 75 mg tablet 75 mg PO DAILY 12/11/21 01/23/22 History cyclobenzaprine 5 mg tablet 5 mg PO TID 12/11/21 01/23/22 History diclofenac sodium 1 % topical gel 1 ea topical DAILY 12/11/21 01/23/22 History diflorasone 0.05 % topical cream 1 applic topical DAILY 12/11/21 01/23/22 History gabapentin 100 mg capsule 100 mg PO Q8H 12/11/21 12/30/21 History insulin glargine 100 unit/mL (3 5 unit subcut HS 12/11/21 01/23/22 History mL) subcutaneous pen pantoprazole 40 mg tablet,delayed 40 mg PO BID 12/11/21 01/23/22 History release polyethylene glycol 3350 17 17 g PO DAILY 12/11/21 01/23/22 History gram/dose oral powder quetiapine 25 mg tablet (Seroquel) 12.5 mg PO BID PRN Agitation 12/11/21 01/23/22 History venlafaxine 75 mg tablet 150 mg PO DAILY 12/11/21 01/23/22 History apixaban 5 mg tablet (Eliquis) 5 mg PO BID 12/30/21 01/23/22 History linagliptin 5 mg tablet (Tradjenta) 5 mg PO DAILY 12/30/21 01/23/22 History dronabinol 2.5 mg capsule (Marinol) 2.5 mg PO Q12HR 30 days #60 caps 01/07/22 01/23/22 Rx melatonin 5 mg tablet 5 mg PO HS #30 tabs 01/07/22 01/23/22 Rx metoprolol tartrate 25 mg tablet 12.5 mg PO BID #21 tabs 01/07/22 01/23/22 Rx metronidazole 500 mg tablet 500 mg PO Q
--- NOTE | 2022-01-23 23:07 | ADMGEN ---
This patient, Juan Pablo Almaraz, was admitted to 2 Medical Room 251-. Patient/family oriented to hospital policies and general routines including ID bracelet, bed and alarms, visiting hours, pain management, procedures, bathroom and other care routines, personal items, smoking policy, room service/diet, and visiting hours. Information on how to activate the Rapid Response Team has been discussed. Patient/Family are encouraged to report perceived risks to care and to ask questions if they do not understand what they are told or what they should do.
[2022-01-23] MEDS: SODIUM CHLORIDE 0.9% IV 1,000 ML 125 ML IV CONT (23:22)
[2022-01-24] VITALS (13 sets, daily range): BP systolic 106–112; BP diastolic 54–76; PULSE 74–136; RESP 14–18; TEMP 36.1–36.7; O2SAT 95–99
[2022-01-24] MEDS: METOPROLOL TARTRATE 12.5 MG TABLET PO ×2 (01:26→09:17)
[2022-01-24] MEDS: carvediloL 25 MG TABLET PO ×2 (01:26→09:15)
[2022-01-24] MEDS: GABAPENTIN 100 MG CAPSULE PO ×3 (06:26→20:39)
[2022-01-24] MEDS: SODIUM CHLORIDE 0.9% IV 1,000 ML 125 ML IV CONT (06:26)
[2022-01-24] MEDS: CLOPIDOGREL BISULFATE 75 MG TABLET PO (09:14)
[2022-01-24] MEDS: CYCLOBENZAPRINE HCL 5 MG TABLET PO ×3 (09:14→16:32)
[2022-01-24] MEDS: APIXABAN 5 MG TABLET PO (09:14)
[2022-01-24] MEDS: PANTOPRAZOLE 40 MG TABLET PO ×2 (09:14→16:32)
[2022-01-24] MEDS: LOSARTAN POTASSIUM 25 MG TABLET PO (09:14)
[2022-01-24] MEDS: ASPIRIN 81 MG CHEWABLE TABLET PO (09:15)
[2022-01-24] MEDS: buPROPion HCL XL (24 HR) 150 MG TABCR PO (09:17)
[2022-01-24] MEDS: DICLOFENAC SODIUM 1% 100 GM GEL (*BKC) 1 APPLIC TOPICAL (10:17)
[2022-01-24] MEDS: VENLAFAXINE HCL 75 MG TABLET 150 MG PO (10:18)
--- NOTE | 2022-01-24 14:09 | PM.IMPN ---
Progress Note: A&P Assessment and Plan (1) Acute UTI: Code(s): N39.0 - Urinary tract infection, site not specified Status: Acute Assessment and Plan: UA 1+ blood, 2+ leukocytes, 31-50 wbc's, 3-5 RBCs, rare epi cells. patient has a history of Proteus mirabilis UTI and was hospitalized 12/29 to 01/08 it was treated with IV Zosyn at that time. CT abdomen and pelvis showed 2 large bladder stones approximately 2 cm in size. Patient treated with Rocephin 1 g IV in the ED, continue IV Rocephin and adjust per urine culture. antibiotics started 01/23/2022 Consult urology given frequent UTIs and presence of bladder stones (2) Bladder calculus: Code(s): N21.0 - Calculus in bladder Status: Acute Assessment and Plan: noted on CT. Patient has 2 large bladder stones and frequent urinary tract infections. Consult Urology and appreciate recommendations (3) Tachycardia: Code(s): R00.0 - Tachycardia, unspecified Status: Acute Assessment and Plan: HR 100-134 beats per minute. Patient was noted to be tachycardic overnight that is significantly improved. Likely secondary to missed medications as well as acute infection. BP stable 112/69. WBC and lactic acid within normal limits. Patient does not meet sepsis criteria. reviewing prior hospitalization notes it appears patient had previously been taking Coreg 25 mg b.i.d. however this was stopped 01/08/2022 of with unknown reasoning. And started on metoprolol tartrate 12.5 mg b.i.d. continue metoprolol tartrate increased dose to 25 mg b.i.d. and hold for heart rate less than 50 or SBP less than 90 Monitor telemetry (4) Failure to thrive in adult: Code(s): R62.7 - Adult failure to thrive Status: Chronic Assessment and Plan: patient is currently living in a care home continue Marinol a previous dose (5) Essential hypertension: Code(s): I10 - Essential (primary) hypertension Status: Acute Assessment and Plan: Chronic, stable Continue metoprolol tartrate b.i.d., losartan Monitor vital signs (6) Coronary artery disease: Qualifiers: Coronary Disease-Associated Artery/Lesion type: [place] artery [place] vs. transplanted heart: [place] heart Associated angina: without angina Qualified Code(s): I25.10 - Atherosclerotic heart disease of [place] coronary artery without angina pectoris Code(s): I25.10 - Atherosclerotic heart disease of [place] coronary artery without angina pectoris Status: Chronic Assessment and Plan: Chronic, stable. 3.0 x 8 mm 3.0 x 12 mm resolute drug-eluting stent and 3.0 x 40 mm drug-eluting stent throughout the RCA 08/11/21 Continue aspirin and plavix. (7) PAD (peripheral artery disease): Code(s): I73.9 - Peripheral vascular disease, unspecified Status: Chronic Assessment and Plan: Chronic, stable continue to monitor (8) Dementia: Qualifiers: Dementia type: unspecified type Dementia severity: moderate Dementia behavioral or psychological symptom: without behavioral, psychotic, or mood disturbance or anxiety Qualified Code(s): F03.B0 - Unspecified dementia, moderate, without behavioral disturbance, psychotic disturbance, mood disturbance, and anxiety Code(s): F03.90 - Unspecified dementia, unspecified severity, without behavioral disturbance, psychotic disturbance, mood disturbance, and anxiety Status: Chronic Assessment and Plan: chronic, stable Continue wellbutrin and Effexor Continue Seroquel PRN (9) Anemia: Qualifiers: Anemia type: unspecified type Qualified Code(s): D64.9 - Anemia, unspecified Code(s): D64.9 - Anemia, unspecified Status: Chronic Assessment and Plan: chronic, stable. History of hemolytic anemia and anemia of chronic disease. Patient has been seen by Dr. Parmar and previous hospitalizations. Hemoglobin 11.3/hematocrit 42.9 improve
--- NOTE | 2022-01-24 14:37 | PC.NURSE ---
On 01/24/22, the student, [Sena Obrien], provided care and completed [facility] documentation on this patient. I have reviewed the student's documentation and agree with the findings.
[2022-01-24] MEDS: SODIUM CHLORIDE 0.9% IV 1,000 ML 75 ML IV CONT (14:59)
--- NOTE | 2022-01-24 16:12 | WPDURCON ---
Assessment and Plan Assessment and plan (1) Bladder calculus: Code(s): N21.0 - Calculus in bladder Status: Acute Assessment and Plan: Will plan to schedule a laser litholapaxy with cystoscopy as an outpatient once UTI is resolved. Schedule an outpatient f/u visit in the office in 2-3 weeks to repeat a urine culture and discuss surgery. No further evaluation needed at this time. (2) Acute UTI: Code(s): N39.0 - Urinary tract infection, site not specified Status: Acute Assessment and Plan: Continue Rocephin and tailor to culture sensitivity. Chronic UTI's are likely related to BPH, incomplete emptying of bladder long-term and large baldder stones. Start Finasteride and continue Tamsulosin. (3) BPH (benign prostatic hyperplasia): Code(s): N40.0 - Benign prostatic hyperplasia without lower urinary tract symptoms Status: Acute Urology Consult Note HPI Date Seen: 01/24/22 Time Seen: 16:12 Requesting Physician: Amarilis Sanchez MD Primary Care Provider: Melania Holt, Consult Narrative Reason for consult: Bladder Stones/Chronic UTI's Narrative: Juan Pablo Almaraz is a 71 year old male who presented to the ER for abdominal pain initially. He had a cholecystectomy drain in recently and thought his pain may have been related this that. However, upon scanning his abdomen with a CT scan he was found to have two large bladder stones measuring up to 2m in size. He had no renal stones, obstruction or hydronephrosis. He states he has had UTI's for 50 years intermittently. Currently he states he has dysuria, frequency, hesitancy and urgency to urinate. He states in the past year he has had a UTI every month. He is difficult to understand and it is unclear as to who he has been treated by for the UTI's as he states he has never seen a urologist. He also denies treatment for BPH in the past, a slow stream or difficulty with urination. He is however on Tamsulosin at home. His WBC is 8.3, creatinine is 0.90 and UA is suggestive of a UTI, with a urine culture pending. He remains on Rocephin and is afebrile. Review of Systems Cardiovascular: Cardiovascular: Denies chest pain Respiratory: Respiratory: Reports no additional respiratory complaints Gastrointestinal: Gastrointestinal: Denies abdominal pain, Denies nausea and Denies vomiting Genitourinary: Genitourinary: Denies hematuria, Reports dysuria, Denies flank pain, Reports urinary frequency, Reports urinary hesitancy, Denies urinary incontinence and Reports urinary urgency PMFSH Past Medical History Medical History Coronary artery disease Dementia DVT (deep venous thrombosis) Effusion, pericardium Essential hypertension History of GI bleed History of TIA (transient ischemic attack) Morbid obesity due to excess calories PAD (peripheral artery disease) Surgical History Surgical History History of ankle surgery Family History Family History Father Family history of malignant neoplasm Mother Family history of heart disease in male family member before age 55 Hypertension Family history of cardiovascular disease Social History Social History Social History: the patient is from [facility] it is noted that he does not smoke. He is listed as being . He is retired. 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 He has a Jen white listed as a child. Code status full code Smoking status: Never smoker Second hand tobacco smoke exposure: Yes Alcohol intake: never Substance use: never Spiritual care concerns: No Meds Home Medications and Allergies Home Medications Medication Instructions Recorded Confirmed Type acetaminophen 325 mg chewable 6
[2022-01-24] MEDS: ATORVASTATIN 40 MG TABLET 80 MG PO (20:38)
[2022-01-24] MEDS: TAMSULOSIN HCL 0.4 MG CAPSULE PO (20:39)
[2022-01-24] MEDS: MELATONIN 5 MG TABLET PO (20:39)
[2022-01-24] MEDS: METOPROLOL TARTRATE 25 MG TABLET PO (20:43)
[2022-01-25] VITALS (11 sets, daily range): BP systolic 100–120; BP diastolic 58–72; PULSE 72–102; RESP 16–20; TEMP 36.2–36.9; O2SAT 99–100
--- NOTE | 2022-01-25 02:00 | PC.NURSE ---
bladder scan shows 284ml, no incont episodes this shift.
[2022-01-25] MEDS: SODIUM CHLORIDE 0.9% IV 1,000 ML 75 ML IV CONT (04:12)
[2022-01-25 05:34] LABS: Anion Gap 13 mmol/L (8-16); Blood Urea Nitrogen 9 mg/dL (9-20); Calcium 8.2 mg/dL (8.4-10.2); Carbon Dioxide 23 mmol/L (22-30); Chloride 104 mmol/L (98-107); Estimated CRCL calculation 91 ml/min; Estimated Glomerular Filt Rate > 60; Glucose 71 mg/dL (65-110); Potassium 3.2 mmol/L (3.4-5.0); Sodium 140 mmol/L (137-145)
--- NOTE | 2022-01-25 05:45 | PC.NURSE ---
xs incont episode, post void bladder scan shows 100ml.
[2022-01-25] MEDS: GABAPENTIN 100 MG CAPSULE PO ×3 (06:20→20:48)
[2022-01-25 07:23] LABS: Basophils Percent Auto 0.4 % (0.2-1.2); Eosinophils Absolute Auto 0.6 K/mm3 (0-0.3); Eosinophils Percent Auto 6.7 % (0-4.4); Hematocrit 30.5 % (42.0-52.0); Hemoglobin 9.5 g/dL (14.0-18.0); Immature Granulocyte Absolute 0.06 K/mm3 (0.00-0.031); Immature Granulocyte Percent A 0.7 % (0-0.5); Lymphocytes Absolute Auto 1.87 K/mm3 (0.9-3.2); Mean Corpuscular HGB Conc 31.1 g/dl (32-36); Mean Corpuscular Volume 86.6 fl (80-100); Mean Platelet Volume 10.3 fl (7.4-10.4); Monocytes Absolute Auto 1.1 K/mm3 (0.1-0.6); Monocytes Percent Auto 12.1 % (2.6-8.5); Neutrophils Absolute Auto 5.3 K/mm3 (1.3-6.7); Neutrophils Percent Auto 59.1 % (45.5-73.1); Platelet Count Result 250 k/mm3 (150-375); Red Blood Count 3.52 M/mm3 (4.6-6.20); Red Cell Distribution Width 20.9 % (11.5-14.5); White Blood Count 8.9 K/mm3 (4.5-10.0)
[2022-01-25 08:07] LABS: Hemoglobin A1C 5.2 % (<5.7)
[2022-01-25 08:54] LABS: Hematocrit 29.4 % (42.0-52.0); Hemoglobin 9.4 g/dL (14.0-18.0); Mean Corpuscular Hemoglobin 26.4 pg (26-34); Mean Corpuscular Volume 82.6 fl (80-100); Red Blood Count 3.56 M/mm3 (4.6-6.20); Red Cell Distribution Width 21.1 % (11.5-14.5); White Blood Count 10.7 K/mm3 (4.5-10.0)
[2022-01-25 08:55] LABS: Lymphocytes Percent Auto 24.1 % (18.3-44.2); Monocytes Percent Auto 14.4 % (2.6-8.5); Neutrophils Percent Auto 57.5 % (45.5-73.1); Platelet Count Result 283 k/mm3 (150-375)
[2022-01-25 08:56] LABS: Basophils Percent Auto 0.3 % (0.2-1.2); Eosinophils Absolute Auto 0.3 K/mm3 (0-0.3); Eosinophils Percent Auto 2.7 % (0-4.4); Immature Granulocyte Absolute 0.11 K/mm3 (0.00-0.031); Lymphocytes Absolute Auto 2.57 K/mm3 (0.9-3.2); Monocytes Absolute Auto 1.5 K/mm3 (0.1-0.6); Neutrophils Absolute Auto 6.1 K/mm3 (1.3-6.7)
[2022-01-25] MEDS: DICLOFENAC SODIUM 1% 100 GM GEL (*BKC) 1 APPLIC TOPICAL (09:06)
[2022-01-25] MEDS: ENOXAPARIN 40 MG/0.4 ML SYRINGE SUB-Q (09:06)
[2022-01-25] MEDS: METOPROLOL TARTRATE 25 MG TABLET PO ×2 (09:07→20:47)
[2022-01-25] MEDS: PANTOPRAZOLE 40 MG TABLET PO ×2 (09:07→16:54)
[2022-01-25] MEDS: VENLAFAXINE HCL 75 MG TABLET 150 MG PO (09:07)
[2022-01-25] MEDS: LOSARTAN POTASSIUM 25 MG TABLET PO (09:07)
[2022-01-25] MEDS: FINASTERIDE 5 MG TABLET PO (09:07)
[2022-01-25] MEDS: CYCLOBENZAPRINE HCL 5 MG TABLET PO ×2 (09:08→12:52)
[2022-01-25] MEDS: buPROPion HCL XL (24 HR) 150 MG TABCR PO (09:08)
[2022-01-25] MEDS: CLOPIDOGREL BISULFATE 75 MG TABLET PO (09:08)
[2022-01-25] MEDS: ASPIRIN 81 MG CHEWABLE TABLET PO (09:09)
--- NOTE | 2022-01-25 12:26 | PM.IMPN ---
Progress Note: A&P Assessment and Plan (1) Asymptomatic bacteriuria: Code(s): R82.71 - Bacteriuria Status: Acute Assessment and Plan: UA 1+ blood, 2+ leukocytes, 31-50 wbc's, 3-5 RBCs, rare epi cells. patient has a history of Proteus mirabilis UTI and was hospitalized 12/29 to 01/08 it was treated with IV Zosyn at that time. CT abdomen and pelvis showed 2 large bladder stones approximately 2 cm in size. Patient treated with Rocephin 1 g IV in the ED, continue IV Rocephin and adjust per urine culture. antibiotics started 01/23/2022 Urology consulted and recommend outpatient laser litholapaxy for bladder stones. 01/25/22 Urine culture shows no growth. Antibiotics stopped. Case discussed with Urology [employer]. (2) Bladder calculus: Code(s): N21.0 - Calculus in bladder Status: Acute Assessment and Plan: noted on CT. Patient has 2 large bladder stones and frequent urinary tract infections. Consult Urology and appreciate recommendations. As above. (3) Tachycardia: Code(s): R00.0 - Tachycardia, unspecified Status: Acute Assessment and Plan: HR 100-134 beats per minute. Patient was noted to be tachycardic overnight that is significantly improved. Likely secondary to missed medications as well as acute infection. BP stable 112/69. WBC and lactic acid within normal limits. Patient does not meet sepsis criteria. reviewing prior hospitalization notes it appears patient had previously been taking Coreg 25 mg b.i.d. however this was stopped 01/08/2022 of with unknown reasoning. And started on metoprolol tartrate 12.5 mg b.i.d. continue metoprolol tartrate increased dose to 25 mg b.i.d. and hold for heart rate less than 50 or SBP less than 90 Monitor telemetry 01/25/22 Improved. HR 91, BP 103/61 (4) Cholecystitis: Code(s): K81.9 - Cholecystitis, unspecified Status: Chronic Assessment and Plan: history of acute cholecystitis status post cholecystostomy tube placement by IR on 12/30/21. Patient was discharged to the group home with percutaneous drain with plans to remove after 2 weeks and General surgery office visit. Per ED notes percutaneous drain apparently pulled by patient which prompted his emergency room visit. CT abd/pelvis showed moderate distention of the gallbladder, gallbladder wall thickening and possible cholelithiasis. Dr. Bryan general surgery was contacted by the ED department who reported a drain did not need to reinsertion at this time and will patient to be monitored. 01/25/22 Patient had emesis x1 yesterday and intake approximately 5-10%. He endorses LUQ pain, but physical exam is benign. Discussed case with General Surgery [employer] WORKER who recommended monitoring the patient overnight and if continues to vomit consult surgery for further evaluation. (5) Failure to thrive in adult: Code(s): R62.7 - Adult failure to thrive Status: Chronic Assessment and Plan: patient is currently living in a group home continue Marinol a previous dose (6) Essential hypertension: Code(s): I10 - Essential (primary) hypertension Status: Acute Assessment and Plan: Chronic, stable Continue metoprolol tartrate b.i.d., losartan Monitor vital signs (7) Coronary artery disease: Qualifiers: Coronary Disease-Associated Artery/Lesion type: [place] artery [place] vs. transplanted heart: [place] heart Associated angina: without angina Qualified Code(s): I25.10 - Atherosclerotic heart disease of [place] coronary artery without angina pectoris Code(s): I25.10 - Atherosclerotic heart disease of [place] coronary artery without angina pectoris Status: Chronic Assessment and Plan: Chronic, stable. 3.0 x 8 mm 3.0 x 12 mm resolute drug-eluting stent and 3.0 x 40 mm drug-eluting stent throughout the RCA 08/11/21 Continue aspirin and plavix. (8) PAD (peripheral artery disease): Code(s): I73.9 - Peripheral vascula
[2022-01-25] MEDS: POTASSIUM CHLORIDE 20 MEQ PACKET (FOR LIQUID) 40 MEQ PO (12:51)
--- NOTE | 2022-01-25 14:13 | PC.NURSE ---
On 01/25/22, the student, [Karina Adler], provided care and completed [facility] documentation on this patient. I have reviewed the student's documentation and agree with the findings.
[2022-01-25] MEDS: ATORVASTATIN 40 MG TABLET 80 MG PO (20:44)
[2022-01-25] MEDS: MELATONIN 5 MG TABLET PO (20:47)
[2022-01-25] MEDS: TAMSULOSIN HCL 0.4 MG CAPSULE PO (20:48)
[2022-01-26] VITALS (10 sets, daily range): BP systolic 110–122; BP diastolic 58–74; PULSE 84–108; RESP 17–20; TEMP 36.1–36.7; O2SAT 98–99
[2022-01-26] MEDS: GABAPENTIN 100 MG CAPSULE PO ×3 (05:35→21:11)
[2022-01-26 06:11] LABS: Alanine Aminotransferase 8 U/L (6-50); Albumin Level 3.2 g/dL (3.5-5.1); Alkaline Phosphatase 64 U/L (38-126); Anion Gap 15 mmol/L (8-16); Aspartate Amino Transferase 20 U/L (17-59); Bilirubin,Total 0.6 mg/dL (0.2-1.3); Blood Urea Nitrogen 8 mg/dL (9-20); Calcium 8.3 mg/dL (8.4-10.2); Carbon Dioxide 19 mmol/L (22-30); Chloride 104 mmol/L (98-107); Estimated CRCL calculation 91 ml/min; Estimated Glomerular Filt Rate > 60; Glucose 69 mg/dL (65-110); Potassium 2.9 mmol/L (3.4-5.0); Sodium 138 mmol/L (137-145)
[2022-01-26] MEDS: VENLAFAXINE HCL 75 MG TABLET 150 MG PO (09:45)
[2022-01-26] MEDS: POTASSIUM CHLORIDE 20 MEQ PACKET (FOR LIQUID) 60 MEQ PO (09:45)
[2022-01-26] MEDS: FINASTERIDE 5 MG TABLET PO (09:45)
[2022-01-26] MEDS: buPROPion HCL XL (24 HR) 150 MG TABCR PO (09:45)
[2022-01-26] MEDS: polyethylene glycoL 3350 17 GM POWD.PACK PO (09:45)
[2022-01-26] MEDS: CLOPIDOGREL BISULFATE 75 MG TABLET PO (09:45)
[2022-01-26] MEDS: PANTOPRAZOLE 40 MG TABLET PO (09:45)
[2022-01-26] MEDS: CYCLOBENZAPRINE HCL 5 MG TABLET PO (09:45)
[2022-01-26] MEDS: ASPIRIN 81 MG CHEWABLE TABLET PO (09:45)
[2022-01-26] MEDS: ENOXAPARIN 40 MG/0.4 ML SYRINGE SUB-Q (09:46)
[2022-01-26] MEDS: METOPROLOL TARTRATE 25 MG TABLET PO ×2 (09:46→21:10)
[2022-01-26] MEDS: LOSARTAN POTASSIUM 25 MG TABLET PO (09:46)
[2022-01-26 09:55] LABS: Magnesium 1.7 mg/dL (1.6-2.3)
[2022-01-26 10:53] LABS: Basophils Percent Auto 0.4 % (0.2-1.2); Eosinophils Absolute Auto 0.3 K/mm3 (0-0.3); Eosinophils Percent Auto 4.5 % (0-4.4); Hematocrit 27.4 % (42.0-52.0); Hemoglobin 8.5 g/dL (14.0-18.0); Immature Granulocyte Absolute 0.06 K/mm3 (0.00-0.031); Immature Granulocyte Percent A 0.9 % (0-0.5); Lymphocytes Absolute Auto 1.31 K/mm3 (0.9-3.2); Lymphocytes Percent Auto 18.8 % (18.3-44.2); Mean Corpuscular Hemoglobin 27.4 pg (26-34); Mean Corpuscular Volume 88.4 fl (80-100); Mean Platelet Volume 10.7 fl (7.4-10.4); Monocytes Absolute Auto 0.8 K/mm3 (0.1-0.6); Monocytes Percent Auto 11.5 % (2.6-8.5); Neutrophils Absolute Auto 4.4 K/mm3 (1.3-6.7); Neutrophils Percent Auto 63.9 % (45.5-73.1); Platelet Count Result 118 k/mm3 (150-375); Red Cell Distribution Width 20.3 % (11.5-14.5)
[2022-01-26] MEDS: MORPHINE SULFATE (*CRX) 2 MG/ML INJ IV PUSH (13:28)
--- NOTE | 2022-01-26 14:29 | PM.IMPN ---
Progress Note: A&P Assessment and Plan (1) Asymptomatic bacteriuria: Code(s): R82.71 - Bacteriuria Status: Resolved Assessment and Plan: UA 1+ blood, 2+ leukocytes, 31-50 wbc's, 3-5 RBCs, rare epi cells. patient has a history of Proteus mirabilis UTI and was hospitalized 12/29 to 01/08 it was treated with IV Zosyn at that time. CT abdomen and pelvis showed 2 large bladder stones approximately 2 cm in size. Patient treated with Rocephin 1 g IV in the ED, continue IV Rocephin and adjust per urine culture. antibiotics started 01/23/2022 Urology consulted and recommend outpatient laser litholapaxy for bladder stones. 01/25/22 Urine culture shows no growth. Antibiotics stopped. Case discussed with Urology WIRE STITCHER OPERATOR. 01/26/22 PVR 100 mL (2) Bladder calculus: Code(s): N21.0 - Calculus in bladder Status: Acute Assessment and Plan: noted on CT. Patient has 2 large bladder stones and frequent urinary tract infections. Consult Urology and appreciate recommendations. As above. Plan for outpatient laser litholapaxy for bladder stones. (3) Tachycardia: Code(s): R00.0 - Tachycardia, unspecified Status: Resolved Assessment and Plan: HR 100-134 beats per minute. Patient was noted to be tachycardic overnight that is significantly improved. Likely secondary to missed medications as well as acute infection. BP stable 112/69. WBC and lactic acid within normal limits. Patient does not meet sepsis criteria. reviewing prior hospitalization notes it appears patient had previously been taking Coreg 25 mg b.i.d. however this was stopped 01/08/2022 of with unknown reasoning. And started on metoprolol tartrate 12.5 mg b.i.d. continue metoprolol tartrate increased dose to 25 mg b.i.d. and hold for heart rate less than 50 or SBP less than 90 Monitor telemetry 01/25/22 Improved. HR 91, BP 103/61 (4) Cholecystitis: Code(s): K81.9 - Cholecystitis, unspecified Status: Chronic Assessment and Plan: history of acute cholecystitis status post cholecystostomy tube placement by IR on 12/30/21. Patient was discharged to the retirement with percutaneous drain with plans to remove after 2 weeks and General surgery office visit. Per ED notes percutaneous drain apparently pulled by patient which prompted his emergency room visit. CT abd/pelvis showed moderate distention of the gallbladder, gallbladder wall thickening and possible cholelithiasis. Dr. Bryan general surgery was contacted by the ED department who reported a drain did not need to reinsertion at this time and will patient to be monitored. 01/25/22 Patient had emesis x1 yesterday and intake approximately 5-10%. He endorses LUQ pain, but physical exam is benign. Discussed case with General Surgery WIRE STITCHER OPERATOR who recommended monitoring the patient overnight and if continues to vomit consult surgery for further evaluation. 01/26/22 patient refusing meals. Endorses epigastric/LUQ pain when asked and grimacing noted with RUQ palpation during physical exam. LFTs within normal limits. HIDA scan shows acute cholecystitis. Keep NPO. Consult General Surgery. Start Zosyn 3.375 mg Q6 hours. Last QTc >500 avoid fluoroquinolones and other QT prolonging agents. Start IV fluids with potassium (5) Failure to thrive in adult: Code(s): R62.7 - Adult failure to thrive Status: Chronic Assessment and Plan: patient is currently living in a retirement Patient NPO. Resume marinol when able to take PO. (6) Essential hypertension: Code(s): I10 - Essential (primary) hypertension Status: Acute Assessment and Plan: Chronic, stable Continue metoprolol tartrate b.i.d., losartan Monitor vital signs (7) Coronary artery disease: Qualifiers: Coronary Disease-Associated Artery/Lesion type: [place] artery [place] vs. transplanted heart: [place] heart Associated angina: without angina Qualified Code(s): I25.10 - Atherosc[place]
[2022-01-26 16:06] LABS: Potassium 3.1 mmol/L (3.4-5.0)
[2022-01-26] MEDS: KCL 40 MEQ/D5/0.9% SOD CHL 1,000 ML 100 ML IV CONT (16:45)
--- NOTE | 2022-01-26 17:15 | PC.NURSE ---
Unable to complete order clarification for Diclofenac d/t patient not being able to state area of pain. Does not state in reports/notes.
[2022-01-26] MEDS: TAMSULOSIN HCL 0.4 MG CAPSULE PO (21:11)
[2022-01-26] MEDS: MELATONIN 5 MG TABLET PO (21:11)
[2022-01-27] VITALS (10 sets, daily range): BP systolic 109–149; BP diastolic 65–92; PULSE 100–121; RESP 18–20; TEMP 36.2–37; O2SAT 92–100
[2022-01-27] MEDS: KCL 40 MEQ/D5/0.9% SOD CHL 1,000 ML 100 ML IV CONT ×2 (02:50→14:00)
[2022-01-27] MEDS: GABAPENTIN 100 MG CAPSULE PO (05:37)
[2022-01-27 06:24] LABS: INR 1.5; Prothrombin Time 17.6 Seconds (11.1-14.7)
[2022-01-27 06:25] LABS: Partial Thromboplastin Time 33.4 SECONDS (22.3-36.8)
[2022-01-27 06:38] LABS: Alanine Aminotransferase 10 U/L (6-50); Albumin Level 3.5 g/dL (3.5-5.1); Alkaline Phosphatase 80 U/L (38-126); Anion Gap 12 mmol/L (8-16); Aspartate Amino Transferase 19 U/L (17-59); Bilirubin,Total 0.7 mg/dL (0.2-1.3); Blood Urea Nitrogen 6 mg/dL (9-20); Calcium 8.3 mg/dL (8.4-10.2); Carbon Dioxide 24 mmol/L (22-30); Chloride 105 mmol/L (98-107); Estimated CRCL calculation 91 ml/min; Estimated Glomerular Filt Rate > 60; Glucose 123 mg/dL (65-110); Potassium 3.5 mmol/L (3.4-5.0); Sodium 141 mmol/L (137-145)
[2022-01-27 07:43] LABS: Basophils Percent Auto 0.3 % (0.2-1.2); Eosinophils Absolute Auto 0.1 K/mm3 (0-0.3); Eosinophils Percent Auto 0.9 % (0-4.4); Hematocrit 29.4 % (42.0-52.0); Hemoglobin 8.9 g/dL (14.0-18.0); Immature Granulocyte Absolute 0.07 K/mm3 (0.00-0.031); Immature Granulocyte Percent A 0.6 % (0-0.5); Lymphocytes Absolute Auto 0.43 K/mm3 (0.9-3.2); Lymphocytes Percent Auto 3.8 % (18.3-44.2); Mean Corpuscular HGB Conc 30.3 g/dl (32-36); Mean Corpuscular Hemoglobin 26.8 pg (26-34); Mean Corpuscular Volume 88.6 fl (80-100); Mean Platelet Volume 10.2 fl (7.4-10.4); Monocytes Absolute Auto 0.4 K/mm3 (0.1-0.6); Monocytes Percent Auto 3.7 % (2.6-8.5); Neutrophils Absolute Auto 10.3 K/mm3 (1.3-6.7); Neutrophils Percent Auto 90.7 % (45.5-73.1); Platelet Count Result 191 k/mm3 (150-375); Red Blood Count 3.32 M/mm3 (4.6-6.20); Red Cell Distribution Width 20.3 % (11.5-14.5); White Blood Count 11.3 K/mm3 (4.5-10.0)
[2022-01-27 08:28] LABS: Anisocytosis 1+ (NORMAL); Ovalocytes 1+ (NORMAL); Platelet Estimate Adequate (Adequate)
[2022-01-27 08:29] LABS: Acanthocytes 1+ (NORMAL); Schistocytes None Seen (NORMAL)
[2022-01-27] MEDS: polyethylene glycoL 3350 17 GM POWD.PACK PO (10:31)
[2022-01-27] MEDS: PANTOPRAZOLE SODIUM IV 40 MG VIAL IV PUSH (10:32)
[2022-01-27] MEDS: ENOXAPARIN 40 MG/0.4 ML SYRINGE SUB-Q (10:32)
[2022-01-27 11:09] LABS: Lactic Acid Reflex 1.4 mmol/L (0.7-2.0)
--- NOTE | 2022-01-27 11:48 | PM.IMPN ---
Progress Note: A&P Assessment and Plan (1) Cholecystitis: Code(s): K81.9 - Cholecystitis, unspecified Status: Acute Assessment and Plan: history of acute cholecystitis status post cholecystostomy tube placement by IR on 12/30/21. Patient was discharged to the retirement with percutaneous drain with plans to remove after 2 weeks and General surgery office visit. Per ED notes percutaneous drain apparently pulled by patient which prompted his emergency room visit. CT abd/pelvis showed moderate distention of the gallbladder, gallbladder wall thickening and possible cholelithiasis. Dr. Bryan general surgery was contacted by the ED department who reported a drain did not need to reinsertion at this time and will patient to be monitored. 01/25/22 Patient had emesis x1 yesterday and intake approximately 5-10%. He endorses LUQ pain, but physical exam is benign. Discussed case with General Surgery MEDICARE SPECIALIST who recommended monitoring the patient overnight and if continues to vomit consult surgery for further evaluation. 01/26/22 patient refusing meals. Endorses epigastric/LUQ pain when asked and grimacing noted with RUQ palpation during physical exam. LFTs within normal limits. HIDA scan shows acute cholecystitis with no activity in the gallbladder. Keep NPO. Consult General Surgery. Start Zosyn 3.375 mg Q6 hours. Last QTc >500 avoid fluoroquinolones and other QT prolonging agents. Start IV fluids with potassium 01/27/22 LFTs within normal limits. Continue IV Zosyn. NPO until evaluated by surgery. Patient still with grimacing with palpation of RUQ/LUQ (2) Asymptomatic bacteriuria: Code(s): R82.71 - Bacteriuria Status: Resolved Assessment and Plan: UA 1+ blood, 2+ leukocytes, 31-50 wbc's, 3-5 RBCs, rare epi cells. patient has a history of Proteus mirabilis UTI and was hospitalized 12/29 to 01/08 it was treated with IV Zosyn at that time. CT abdomen and pelvis showed 2 large bladder stones approximately 2 cm in size. Patient treated with Rocephin 1 g IV in the ED, continue IV Rocephin and adjust per urine culture. antibiotics started 01/23/2022 Urology consulted and recommend outpatient laser litholapaxy for bladder stones. 01/25/22 Urine culture shows no growth. Antibiotics stopped. Case discussed with Urology MEDICARE SPECIALIST. 01/26/22 PVR 100 mL (3) Bladder calculus: Code(s): N21.0 - Calculus in bladder Status: Acute Assessment and Plan: noted on CT. Patient has 2 large bladder stones and frequent urinary tract infections. Consult Urology and appreciate recommendations. As above. Plan for outpatient laser litholapaxy for bladder stones. (4) Tachycardia: Code(s): R00.0 - Tachycardia, unspecified Status: Resolved Assessment and Plan: HR 100-134 beats per minute. Patient was noted to be tachycardic overnight that is significantly improved. Likely secondary to missed medications as well as acute infection. BP stable 112/69. WBC and lactic acid within normal limits. Patient does not meet sepsis criteria. reviewing prior hospitalization notes it appears patient had previously been taking Coreg 25 mg b.i.d. however this was stopped 01/08/2022 of with unknown reasoning. And started on metoprolol tartrate 12.5 mg b.i.d. continue metoprolol tartrate increased dose to 25 mg b.i.d. and hold for heart rate less than 50 or SBP less than 90 Monitor telemetry 01/25/22 Improved. HR 91, BP 103/61 01/27/22 Patient with increased HR 107-121 bpm. BP 111/69. Lactic acid 1.3. WBC increased 11.3, Continue metoprolol BID. May be pain related- continue pain control. Continue antibiotics and IV hydration. Insert romano for accurate I/O monitor. (5) Essential hypertension: Code(s): I10 - Essential (primary) hypertension Status: Acute Assessment and Plan: Chronic, stable Continue metoprolol tartrate b.i.d. and losartan at home dose Monitor vital signs Stable. (6) Coronary artery diseas
--- NOTE | 2022-01-27 14:45 | PCOTNOTE ---
Attempted OT evaluation, per RN patient unarousable at this time and is going down for testing. Will follow and attempt at later time.
[2022-01-27 14:48] LABS: Glucose Point of Care 121 mg/dl (65-105)
[2022-01-27 14:54] LABS: Basophils Percent Auto 0.4 % (0.2-1.2); Eosinophils Absolute Auto 0.1 K/mm3 (0-0.3); Eosinophils Percent Auto 1.2 % (0-4.4); Immature Granulocyte Absolute 0.03 K/mm3 (0.00-0.031); Immature Granulocyte Percent A 0.4 % (0-0.5); Lymphocytes Absolute Auto 1.13 K/mm3 (0.9-3.2); Lymphocytes Percent Auto 14.7 % (18.3-44.2); Mean Platelet Volume 9.7 fl (7.4-10.4); Monocytes Absolute Auto 0.4 K/mm3 (0.1-0.6); Monocytes Percent Auto 5.7 % (2.6-8.5); Neutrophils Percent Auto 77.6 % (45.5-73.1); Platelet Count Result 212 k/mm3 (150-375); White Blood Count 7.7 K/mm3 (4.5-10.0)
[2022-01-27 15:05] LABS: Ammonia < 9 umol/L (9-30)
[2022-01-27 15:06] LABS: Alanine Aminotransferase 11 U/L (6-50); Albumin Level 3.6 g/dL (3.5-5.1); Alkaline Phosphatase 80 U/L (38-126); Anion Gap 9 mmol/L (8-16); Aspartate Amino Transferase 19 U/L (17-59); Bilirubin,Total 0.7 mg/dL (0.2-1.3); Blood Urea Nitrogen 6 mg/dL (9-20); Calcium 8.3 mg/dL (8.4-10.2); Carbon Dioxide 26 mmol/L (22-30); Chloride 106 mmol/L (98-107); Estimated CRCL calculation 81 ml/min; Estimated Glomerular Filt Rate > 60; Glucose 126 mg/dL (65-110); Potassium 3.5 mmol/L (3.4-5.0); Sodium 141 mmol/L (137-145)
[2022-01-27 15:11] LABS: Alveolar/Arterial O2 Gradient 30.2 mmHg; Base Excess ABG 1.2 mEq/l (+/-2.0); Carboxyhemoglobin 0.3 % THb (0-2.0); Fractional Inspired Oxygen 21 %; Methemoglobin ABG 0.6 %THb (0-1.5); Oxygen Content ABG 13.8 %vol (16.0-22.0); Oxygen Saturation ABG 95.8 % (95.0-100.0); Oxyhemoglobin 93.9 % THb (90.0-100.0); PCO2 ABG 36.6 mmHg (35.0-45.0); PO2 ABG 75.7 mmHg (80.0-100.0); Reduced Hemoglobin 5.2 %THb (0-5.0); Total Hemoglobin 10.4 g/dL (12.0-18.0); pH ABG 7.452 (7.350-7.450)
[2022-01-27 15:15] LABS: Site Drawn RIGHT BRACHIAL
[2022-01-27 16:07] LABS: Thyroid Stimulating Hormone Reflex 0.303 uIU/mL (0.465-4.68)
[2022-01-27 16:56] LABS: Free T4 Free Thyroxine Reflex 2.29 ng/dL (0.78-2.19)
[2022-01-27 17:17] LABS: Hemoglobin 9.2 g/dL (14.0-18.0)
[2022-01-27 17:18] LABS: Hematocrit 28.2 % (42.0-52.0); Mean Corpuscular HGB Conc 32.6 g/dl (32-36); Mean Corpuscular Hemoglobin 29.7 pg (26-34); Red Cell Distribution Width 21.1 % (11.5-14.5)
[2022-01-27 17:19] LABS: Ovalocytes 1+ (NORMAL); Platelet Estimate Adequate (Adequate)
[2022-01-27 17:20] LABS: Burr Cells 1+ (NORMAL); Schistocytes None Seen (NORMAL)
--- NOTE | 2022-01-27 17:20 | PM.CNGS ---
Assessment and Plan Assessment and plan (1) Cholecystitis: Code(s): K81.9 - Cholecystitis, unspecified Status: Acute Assessment and Plan: I have reviewed the CT and HIDA scan. The patient had a cholecystostomy tube placed due to acute cholecystitis and sepsis. The tube was inadvertently removed 3 days ago, but he is not showing any worsening signs of infection or sepsis at this time. The repeat HIDA scan still shows no filling within the gallbladder suggestive of continued occlusion of his cystic duct. This may ultimately require repeat percutaneous cholecystostomy tube placement, but will reserve this for if he shows worsening signs of infection. Continue advancing to low-fat diet as tolerated. Will follow closely for any changes in condition. (2) Asymptomatic bacteriuria: Code(s): R82.71 - Bacteriuria Status: Resolved (3) Coronary artery disease: Qualifiers: Coronary Disease-Associated Artery/Lesion type: [place] artery [place] vs. transplanted heart: [place] heart Associated angina: without angina Qualified Code(s): I25.10 - Atherosclerotic heart disease of [place] coronary artery without angina pectoris Code(s): I25.10 - Atherosclerotic heart disease of [place] coronary artery without angina pectoris Status: Chronic (4) PAD (peripheral artery disease): Code(s): I73.9 - Peripheral vascular disease, unspecified Status: Chronic (5) Dementia: Qualifiers: Dementia type: unspecified type Dementia severity: moderate Dementia behavioral or psychological symptom: without behavioral, psychotic, or mood disturbance or anxiety Qualified Code(s): F03.B0 - Unspecified dementia, moderate, without behavioral disturbance, psychotic disturbance, mood disturbance, and anxiety Code(s): F03.90 - Unspecified dementia, unspecified severity, without behavioral disturbance, psychotic disturbance, mood disturbance, and anxiety Status: Chronic History of Present Illness Consult details Consult date: 01/27/22 Reason for consult: other (Cholecystitis) Requesting physician: Rosi Hein, MECHANICAL DESIGN DRAFTER Narrative: this is a 71 year old man who I am asked to see for cholecystitis. He is difficult to obtain history from due to dementia and other medical problems. History is obtained from the chart. He is known to the service due to a prior history of acute cholecystitis and underwent percutaneous cholecystostomy tube placement by Interventional Radiology. The cholecystostomy tube was managed here at hospital until he was discharged to the alf facility. He was brought back into the emergency department from the nursing facility on 01/23 due to the cholecystostomy tube being pulled out and there being bleeding at the insertion site. The bleeding has stopped patient does seem to occasionally have some abdominal pain. He has also been slightly tachycardic and did have a slightly elevated white blood count, therefore there was some concerns of continued infection. Review of Systems Review of Systems: All systems reviewed & are unremarkable except as noted in HPI and below Constitutional: Constitutional: Denies chills and Denies fever(s) Cardiovascular: Cardiovascular: Denies chest pain and Denies dyspnea Respiratory: Respiratory: Denies dyspnea Gastrointestinal: Gastrointestinal: Reports as per HPI [facility] Past Medical History Medical History Coronary artery disease Dementia DVT (deep venous thrombosis) Effusion, pericardium Essential hypertension History of GI bleed History of TIA (transient ischemic attack) Morbid obesity due to excess calories PAD (peripheral artery disease) Surgical History Surgical History History of ankle surgery Family History Family History Father Fam
[2022-01-27] MEDS: METOPROLOL TARTRATE 25 MG TABLET PO (21:08)
[2022-01-27] MEDS: FINASTERIDE 5 MG TABLET PO (21:09)
[2022-01-27] MEDS: TAMSULOSIN HCL 0.4 MG CAPSULE PO (21:09)
[2022-01-27 22:28] LABS: Glucose Point of Care 110 mg/dl (65-105)
[2022-01-28] VITALS (11 sets, daily range): BP systolic 113–153; BP diastolic 58–108; PULSE 100–117; RESP 16–22; TEMP 36.1–37.1; O2SAT 98–100; BMI 11.0
[2022-01-28] MEDS: KCL 40 MEQ/D5/0.9% SOD CHL 1,000 ML 100 ML IV CONT ×2 (05:41→20:30)
[2022-01-28] MEDS: ASPIRIN 81 MG CHEWABLE TABLET PO (08:45)
[2022-01-28] MEDS: ENOXAPARIN 40 MG/0.4 ML SYRINGE SUB-Q (08:46)
[2022-01-28] MEDS: PANTOPRAZOLE SODIUM IV 40 MG VIAL IV PUSH (08:46)
[2022-01-28] MEDS: polyethylene glycoL 3350 17 GM POWD.PACK PO (08:46)
[2022-01-28] MEDS: VENLAFAXINE HCL 75 MG TABLET 150 MG PO (08:46)
--- NOTE | 2022-01-28 08:46 | WPDPN ---
Progress Note: A&P Assessment and Plan (1) Cholecystitis: Code(s): K81.9 - Cholecystitis, unspecified Status: Acute Assessment and Plan: history of acute cholecystitis status post cholecystostomy tube placement by IR on 12/30/21.? Patient was discharged to the shelter with percutaneous drain with plans to remove after 2 weeks and General surgery office visit.? Per ED notes percutaneous drain apparently pulled by patient which prompted his emergency room visit. CT abd/pelvis showed moderate distention of the gallbladder, gallbladder wall thickening and possible cholelithiasis. Dr. Bryan general surgery was contacted by the ED department who reported a drain did not need to reinsertion at this time . 01/25/22 Patient had emesis x1 yesterday and intake approximately 5-10%. He endorses LUQ pain, but physical exam is benign. Discussed case with General Surgery GUN TESTER who recommended monitoring the patient overnight and if continues to vomit consult surgery for further evaluation. 01/26/22 patient refusing meals. Endorses epigastric/LUQ pain when asked and grimacing noted with RUQ palpation during physical exam. LFTs within normal limits.?HIDA scan shows acute cholecystitis with no activity in the gallbladder.?Keep NPO. Consult General Surgery. Start Zosyn 3.375 mg Q6 hours. Last QTc >500 avoid fluoroquinolones and other QT prolonging agents. Start IV fluids with potassium 01/27/22 LFTs within normal limits. Continue IV Zosyn. NPO until evaluated by surgery. Patient still with grimacing with palpation of RUQ/LUQ 01/28/2022 per surgery may ultimately require repeat percutaneous cholecystostomy tube placement, but will reserve this for if he shows worsening signs of infection.? Continue advancing to low-fat diet as tolerated.? Will follow closely for any changes in condition. (2) Asymptomatic bacteriuria: Code(s): R82.71 - Bacteriuria Status: Resolved (3) Bladder calculus: Code(s): N21.0 - Calculus in bladder Status: Acute Assessment and Plan: CT indicate 2 large bladder stones and frequent urinary tract infections.? Consult Urology Plan for outpatient laser litholapaxy for bladder stones. (4) Hypertension: Code(s): I10 - Essential (primary) hypertension Status: Acute Assessment and Plan: Chronic, stable Continue metoprolol tartrate b.i.d. and losartan at home dose Monitor vital signs Stable (5) Coronary artery disease: Qualifiers: Coronary Disease-Associated Artery/Lesion type: [place] artery [place] vs. transplanted heart: [place] heart Associated angina: without angina Qualified Code(s): I25.10 - Atherosclerotic heart disease of [place] coronary artery without angina pectoris Code(s): I25.10 - Atherosclerotic heart disease of [place] coronary artery without angina pectoris Status: Chronic Assessment and Plan: Continue aspirin. Hold plavix until evaluated by surgery. (6) Dementia: Qualifiers: Dementia type: unspecified type Dementia severity: moderate Dementia behavioral or psychological symptom: without behavioral, psychotic, or mood disturbance or anxiety Qualified Code(s): F03.B0 - Unspecified dementia, moderate, without behavioral disturbance, psychotic disturbance, mood disturbance, and anxiety Code(s): F03.90 - Unspecified dementia, unspecified severity, without behavioral disturbance, psychotic disturbance, mood disturbance, and anxiety Status: Chronic Assessment and Plan: chronic, stable Continue wellbutrin and Effexor Continue Seroquel PRN (7) Anemia: Qualifiers: Anemia type: unspecified type Qualified Code(s): D64.9 - Anemia, unspecified Code(s): D64.9 - Anemia, unspecified Status: Chronic Assessment and Plan: chronic, stable.? History of hemolytic anemia and anemia of chronic disease.? Patient has been seen by Dr. Parmar and previous hospitalizations.? Hemoglobin 11.3/
[2022-01-28] MEDS: METOPROLOL TARTRATE 25 MG TABLET PO ×2 (08:47→22:28)
--- NOTE | 2022-01-28 14:14 | PM.PNGS ---
Progress Note: A&P Assessment and Plan (1) Cholecystitis: Code(s): K81.9 - Cholecystitis, unspecified Status: Acute Assessment and Plan: White blood count yesterday afternoon was normal. No fevers or other signs of worsening infection. Continue advancing diet as tolerated. Would recommend continuing low-fat diet. Will consider replacement of cholecystostomy tube if there are worsening signs of infection. (2) Dementia: Qualifiers: Dementia type: unspecified type Dementia severity: moderate Dementia behavioral or psychological symptom: without behavioral, psychotic, or mood disturbance or anxiety Qualified Code(s): F03.B0 - Unspecified dementia, moderate, without behavioral disturbance, psychotic disturbance, mood disturbance, and anxiety Code(s): F03.90 - Unspecified dementia, unspecified severity, without behavioral disturbance, psychotic disturbance, mood disturbance, and anxiety Status: Chronic (3) PAD (peripheral artery disease): Code(s): I73.9 - Peripheral vascular disease, unspecified Status: Chronic (4) Coronary artery disease: Qualifiers: Coronary Disease-Associated Artery/Lesion type: [place] artery [place] vs. transplanted heart: [place] heart Associated angina: without angina Qualified Code(s): I25.10 - Atherosclerotic heart disease of [place] coronary artery without angina pectoris Code(s): I25.10 - Atherosclerotic heart disease of [place] coronary artery without angina pectoris Status: Chronic Subjective Subjective Date/Time Seen: 01/28/22 14:14 Interval history: No fevers. No significant abdominal pain. Patient states he does not really have much of an appetite. States he would rather be eating a pizza at a restaurant. Exam GI: Inspection: non-distended and obesity GI Palp: Yes Soft to palpation, No Tenderness to palpation present (GI), No Guarding due to palpation present (GI) and No Rebound tenderness present Auscultation: normal bowel sounds Objective Data Vital Signs Vital Signs: Vital Signs - 24 hr 01/27/22 21:08 01/27/22 20:10 01/27/22 20:00 Temperature 36.6 C Pulse Rate 100 105 H 103 H Respiratory Rate 18 Blood Pressure 149/92 H Pulse Oximetry 98 Oxygen Delivery 01/27/22 22:00 01/28/22 00:00 01/28/22 04:00 Temperature 36.6 C Pulse Rate 105 H 100 100 Respiratory Rate 18 Blood Pressure 149/92 H Pulse Oximetry 98 Oxygen Delivery 01/28/22 06:00 01/28/22 08:47 01/28/22 08:00 Temperature 36.6 C Pulse Rate 113 H 113 H Respiratory Rate 22 H Blood Pressure 153/108 H Pulse Oximetry 98 Oxygen Delivery Room Air 01/28/22 10:20 Temperature Pulse Rate Respiratory Rate Blood Pressure Pulse Oximetry Oxygen Delivery Room Air Intake/Output Intake/Output: Intake & Output 01/25/22 01/26/22 01/27/22 01/28/22 23:59 23:59 23:59 23:59 Intake Total 7133 551 7456 1150 Output Total 300 350 Balance 2048 702 3626 800 Meds/Results Medications: Active Medications Generic Name Dose Route Start Last Admin Trade Name Freq PRN Reason Stop Dose Admin Acetaminophen 650 mg 01/23/22 23:48 Acetaminophen 325 Mg Tablet PO Q6H PRN Pain Rated 1-3 Aspirin 81 mg 01/24/22 09:00 01/28/22 08:45 Aspirin 81 Mg Chewable Tablet PO 81 mg DAILY MYA Administration Atorvastatin Calcium 80 mg 01/24/22 21:00 01/25/22 20:44 Atorvastatin 40 Mg Tablet PO 80 mg HS MYA Administration Bisacodyl 10 mg 01/27/22 12:05 Bisacodyl 10 Mg Suppository RECTAL QAM PRN Constipation Bupropion HCl 150 mg 01/24/22 09:00 01/27/22 14:33 Bupropion Hcl Xl (24 Hr) 150 Mg Tabcr PO Not Given DAILY MYA Clopidogrel Bisulfate 75 mg 01/24/22 09:00 01/26/22 09:45 Clopidogrel Bisulfate 75 Mg Tablet PO 75 mg DAILY MYA Administration Cyclobenzaprine HCl 5 mg 01/26/22 14:40 Cyclobenzaprine Hcl 5 Mg Tablet PO TID PRN
[2022-01-28 15:21] LABS: Basophils Percent Auto 0.4 % (0.2-1.2); Eosinophils Absolute Auto 0.2 K/mm3 (0-0.3); Eosinophils Percent Auto 4.5 % (0-4.4); Immature Granulocyte Absolute 0.04 K/mm3 (0.00-0.031); Immature Granulocyte Percent A 0.7 % (0-0.5); Lymphocytes Absolute Auto 1.46 K/mm3 (0.9-3.2); Lymphocytes Percent Auto 27.2 % (18.3-44.2); Mean Platelet Volume 10.5 fl (7.4-10.4); Monocytes Absolute Auto 0.6 K/mm3 (0.1-0.6); Monocytes Percent Auto 10.4 % (2.6-8.5); Neutrophils Percent Auto 56.8 % (45.5-73.1); Platelet Count Result 198 k/mm3 (150-375); White Blood Count 5.4 K/mm3 (4.5-10.0)
[2022-01-28 15:32] LABS: Alanine Aminotransferase 11 U/L (6-50); Albumin Level 3.2 g/dL (3.5-5.1); Alkaline Phosphatase 68 U/L (38-126); Anion Gap 11 mmol/L (8-16); Aspartate Amino Transferase 20 U/L (17-59); Bilirubin,Total 0.6 mg/dL (0.2-1.3); Blood Urea Nitrogen 5 mg/dL (9-20); Calcium 7.7 mg/dL (8.4-10.2); Carbon Dioxide 20 mmol/L (22-30); Chloride 109 mmol/L (98-107); Estimated CRCL calculation 91 ml/min; Estimated Glomerular Filt Rate > 60; Glucose 131 mg/dL (65-110); Potassium 3.8 mmol/L (3.4-5.0); Sodium 140 mmol/L (137-145)
[2022-01-28 16:07] LABS: Hematocrit 28.4 % (42.0-52.0); Hemoglobin 9.2 g/dL (14.0-18.0); Mean Corpuscular HGB Conc 32.4 g/dl (32-36); Mean Corpuscular Hemoglobin 28.6 pg (26-34); Mean Corpuscular Volume 88.2 fl (80-100); Red Blood Count 3.22 M/mm3 (4.6-6.20); Red Cell Distribution Width 20.5 % (11.5-14.5)
[2022-01-28 16:11] LABS: Ovalocytes 1+ (NORMAL); Platelet Estimate Adequate (Adequate); Poikilocytosis 1+ (NORMAL)
[2022-01-28 16:12] LABS: Acanthocytes 1+ (NORMAL); Burr Cells 1+ (NORMAL); Schistocytes None Seen (NORMAL)
[2022-01-28] MEDS: MORPHINE SULFATE (*CRX) 4 MG/ML INJ IV PUSH (20:30)
[2022-01-28] MEDS: FINASTERIDE 5 MG TABLET PO (20:53)
[2022-01-28] MEDS: TAMSULOSIN HCL 0.4 MG CAPSULE PO (20:53)
[2022-01-29] VITALS (11 sets, daily range): BP systolic 114–132; BP diastolic 76–79; PULSE 90–110; RESP 18; TEMP 36.3–36.8; O2SAT 96–100
[2022-01-29] MEDS: ASPIRIN 81 MG CHEWABLE TABLET PO (08:13)
[2022-01-29] MEDS: ENOXAPARIN 40 MG/0.4 ML SYRINGE SUB-Q (08:14)
[2022-01-29] MEDS: METOPROLOL TARTRATE 25 MG TABLET PO ×2 (08:15→21:52)
[2022-01-29] MEDS: PANTOPRAZOLE SODIUM IV 40 MG VIAL IV PUSH (08:16)
[2022-01-29] MEDS: VENLAFAXINE HCL 75 MG TABLET 150 MG PO (08:16)
[2022-01-29] MEDS: KCL 40 MEQ/D5/0.9% SOD CHL 1,000 ML 100 ML IV CONT ×2 (08:18→20:50)
[2022-01-29 08:47] LABS: Alanine Aminotransferase 12 U/L (6-50); Albumin Level 3.1 g/dL (3.5-5.1); Alkaline Phosphatase 66 U/L (38-126); Anion Gap 10 mmol/L (8-16); Aspartate Amino Transferase 18 U/L (17-59); Bilirubin,Total 0.4 mg/dL (0.2-1.3); Blood Urea Nitrogen 3 mg/dL (9-20); Calcium 7.9 mg/dL (8.4-10.2); Carbon Dioxide 23 mmol/L (22-30); Chloride 107 mmol/L (98-107); Estimated CRCL calculation 81 ml/min; Estimated Glomerular Filt Rate > 60; Glucose 106 mg/dL (65-110); Lipase 30 U/L (23-300); Magnesium 1.4 mg/dL (1.6-2.3); Potassium 3.6 mmol/L (3.4-5.0); Sodium 140 mmol/L (137-145)
[2022-01-29 08:49] LABS: Hematocrit 24.7 % (42.0-52.0); Mean Corpuscular HGB Conc 36.4 g/dl (32-36); Mean Corpuscular Hemoglobin 36.1 pg (26-34); Mean Corpuscular Volume 99.2 fl (80-100); Mean Platelet Volume 10.4 fl (7.4-10.4); Platelet Count Result 203 k/mm3 (150-375); Red Blood Count 2.49 M/mm3 (4.6-6.20); White Blood Count 6.4 K/mm3 (4.5-10.0)
--- NOTE | 2022-01-29 10:54 | PM.IMPN ---
Progress Note: A&P Assessment and Plan (1) Back pain: Code(s): M54.9 - Dorsalgia, unspecified Status: Acute Assessment and Plan: chronic in nature discontinue morphine sulfate. Start [place] 5/325 p.o. q.6 hours p.r.n.. Plan (1) Cholecystitis: ?Code(s): K81.9 - Cholecystitis, unspecified ?Status:?Acute ?Assessment and Plan: history of acute cholecystitis status post cholecystostomy tube placement by IR on 12/30/21.? Patient was discharged to the retirement with percutaneous drain with plans to remove after 2 weeks and General surgery office visit.? Per ED notes percutaneous drain apparently pulled by patient which prompted his emergency room visit. CT abd/pelvis showed moderate distention of the gallbladder, gallbladder wall thickening and possible cholelithiasis. Dr. Bryan general surgery was contacted by the ED department who reported a drain did not need to reinsertion at this time . 01/25/22 Patient had emesis x1 yesterday and intake approximately 5-10%. He endorses LUQ pain, but physical exam is benign. Discussed case with General Surgery INDUSTRIAL GAS FITTER HELPER who recommended monitoring the patient overnight and if continues to vomit consult surgery for further evaluation. 01/26/22 patient refusing meals. Endorses epigastric/LUQ pain when asked and grimacing noted with RUQ palpation during physical exam. LFTs within normal limits.?HIDA scan shows acute cholecystitis with no activity in the gallbladder.?Keep NPO. Consult General Surgery. Start Zosyn 3.375 mg Q6 hours. Last QTc >500 avoid fluoroquinolones and other QT prolonging agents. Start IV fluids with potassium 01/27/22 LFTs within normal limits. Continue IV Zosyn. NPO until evaluated by surgery. Patient still with grimacing with palpation of RUQ/LUQ 01/28/2022 per surgery may ultimately require repeat percutaneous cholecystostomy tube placement, but will reserve this for if he shows worsening signs of infection.? Continue advancing to low-fat diet as tolerated.? Will follow closely for any changes in condition. 01/29/2022: patient remains nauseated. He has poor appetite and states even the smell of the food that is being brought into his room makes him want to vomit. There has been no active vomiting overnight. LFTs remain within normal limits. We have been unable to advance diet. We continue to appreciate surgery's input and guidance. (2) Asymptomatic bacteriuria ?Code(s): R82.71 - Bacteriuria ?Status:?Resolved (3) Bladder calculus: ?Code(s): N21.0 - Calculus in bladder ?Status:?Acute ?Assessment and Plan: CT indicate? 2 large bladder stones and frequent urinary tract infections.? Consult Urology Plan for outpatient laser litholapaxy for bladder stones. (4) Hypertension: ?Code(s): I10 - Essential (primary) hypertension ?Status:?Acute ?Assessment and Plan: Chronic, stable Continue metoprolol tartrate b.i.d. and losartan at home dose Monitor vital signs (5) Coronary artery disease: ?Qualifiers: ?Coronary Disease-Associated Artery/Lesion type:?[place] artery??[place] vs. transplanted heart:?[place] heart??Associated angina:?without angina? Qualified Code(s):?I25.10 - Atherosclerotic heart disease of [place] coronary artery without angina pectoris ?Code(s): I25.10 - Atherosclerotic heart disease of [place] coronary artery without angina pectoris ?Status:?Chronic ?Assessment and Plan: Continue aspirin. Will continue to hold Plavix until surgery has definitive plan as to whether not Percutaneous tube will be replaced. (6) Dementia: ?Qualifiers: ?Dementia type:?unspecified type??Dementia severity:?moderate??Dementia behavioral or psychological symptom:?without behavioral, psychotic, or mood disturbance or anxiety? Qualified Code(s):?F03.B0 - Unspecified dementia, moderate, without behavioral disturbance, psychotic disturbance, mood disturbance, and anxiety ?Code(s): F03.90 -
--- NOTE | 2022-01-29 12:53 | PM.PNGS ---
Progress Note: A&P Assessment and Plan (1) Cholecystitis: Code(s): K81.9 - Cholecystitis, unspecified Status: Acute Assessment and Plan: exam cont to be benign, WBC still normal, low fat diet, given comorbid conditions would opt for conservative therapy Subjective Subjective Date/Time Seen: 01/29/22 12:53 no acute changes, states he feels a little better but still not much of an appetite Review of Systems Review of Systems: All systems reviewed & are unremarkable except as noted in HPI and below Exam Const: General: cooperative, comfortable and no acute distress Resp: Auscultation: clear to auscultation bilaterally Cardio: Rate: regular rate Rhythm: regular rhythm GI: Inspection: normal to inspection and non-distended GI Palp: Yes abdominal tenderness, Yes Soft to palpation, No Guarding due to palpation present (GI) and No Rigid due to palpation Other: minimal TTP epigastrium Objective Data Vital Signs Vital Signs: Vital Signs - 24 hr 01/28/22 14:42 01/28/22 16:00 01/28/22 21:54 Temperature 36.1 C L 37.1 C Pulse Rate 111 H 112 H 109 H Respiratory Rate 16 18 Blood Pressure 130/91 H 113/58 L Pulse Oximetry 99 100 Oxygen Delivery 01/28/22 22:28 01/28/22 20:00 01/28/22 20:00 Temperature Pulse Rate 109 H 112 H Respiratory Rate Blood Pressure Pulse Oximetry Oxygen Delivery Room Air 01/29/22 00:00 01/29/22 04:00 01/29/22 05:54 Temperature 36.6 C Pulse Rate 97 90 97 Respiratory Rate 18 Blood Pressure 114/76 Pulse Oximetry 100 Oxygen Delivery 01/29/22 08:15 01/29/22 08:00 01/29/22 08:00 Temperature Pulse Rate 103 H 100 Respiratory Rate Blood Pressure Pulse Oximetry Oxygen Delivery Room Air 01/29/22 12:36 Temperature Pulse Rate 104 H Respiratory Rate Blood Pressure Pulse Oximetry Oxygen Delivery Intake/Output Intake/Output: Intake & Output 01/26/22 01/27/22 01/28/22 01/29/22 23:59 23:59 23:59 23:59 Intake Total 510 2320 2450 1200 Output Total 300 1100 800 Balance 510 2020 1350 400 Meds/Results Medications: Active Medications Generic Name Dose Route Start Last Admin Trade Name Freq PRN Reason Stop Dose Admin Acetaminophen 650 mg 01/23/22 23:48 Acetaminophen 325 Mg Tablet PO Q6H PRN Pain Rated 1-3 Hydrocodone Bitart/Acetaminophen 1 tab 01/29/22 09:05 Hydrocodone/Acetaminophen (*Crx) 5-325 Mg Tablet PO Q6H PRN Pain Rated 4-6 Aspirin 81 mg 01/24/22 09:00 01/29/22 08:13 Aspirin 81 Mg Chewable Tablet PO 81 mg DAILY MYA Administration Atorvastatin Calcium 80 mg 01/24/22 21:00 01/25/22 20:44 Atorvastatin 40 Mg Tablet PO 80 mg HS MYA Administration Bisacodyl 10 mg 01/27/22 12:05 Bisacodyl 10 Mg Suppository RECTAL QAM PRN Constipation Bupropion HCl 150 mg 01/24/22 09:00 01/27/22 14:33 Bupropion Hcl Xl (24 Hr) 150 Mg Tabcr PO Not Given DAILY COUNT INCLUDES THE [facility] Clopidogrel Bisulfate 75 mg 01/24/22 09:00 01/26/22 09:45 Clopidogrel Bisulfate 75 Mg Tablet PO 75 mg DAILY COUNT INCLUDES THE [facility] Administration Cyclobenzaprine HCl 5 mg 01/26/22 14:40 Cyclobenzaprine Hcl 5 Mg Tablet PO TID PRN Muscle Spasm Diclofenac Sodium 1 applic 01/27/22 09:50 Diclofenac Sodium 1% 100 Gm Gel (*Bkc) TOPICAL QID PRN joint pain Dronabinol 2.5 mg 01/24/22 09:00 01/26/22 13:47 Dronabinol (*Crx) 2.5 Mg Capsule PO Not Given Q12HR COUNT INCLUDES THE [facility] Enoxaparin Sodium 40 mg 01/25/22 09:00 01/29/22 08:14 Enoxaparin 40 Mg/0.4 Ml Syringe SUB-Q 40 mg DAILY COUNT INCLUDES THE [facility] Administration Finasteride 5 mg 01/27/22 21:00 01/28/22 20:53 Finasteride 5 Mg Tablet PO 5 mg BEDTIME COUNT INCLUDES THE [facility] Administration Gabapentin 100 mg 01/24/22 06:00 01/27/22 14:33 Gabapentin 100 Mg Capsule PO Not Given Q8H COUNT INCLUDES THE [facility] Piperacillin/Tazobactam/Dextrose 3.375 gm in 50 mls @ 100 mls/hr 01/26/22 18:00 01/29/22 12:14 Zosyn 3.375 Gm/D5w 50ml Pm
[2022-01-29] MEDS: HYDROcodone/acetaminophen (*CRX) 5-325 MG TABLET 1 TAB PO (17:32)
[2022-01-29] MEDS: ONDANSETRON INJ 4 MG/2 ML VIAL IV PUSH (17:43)
[2022-01-29] MEDS: FINASTERIDE 5 MG TABLET PO (20:50)
[2022-01-29] MEDS: TAMSULOSIN HCL 0.4 MG CAPSULE PO (20:50)
[2022-01-30] VITALS (11 sets, daily range): BP systolic 108–126; BP diastolic 66–83; PULSE 65–107; RESP 18–20; TEMP 36.1–36.8; O2SAT 97–99; BMI 32.3
[2022-01-30] MEDS: HYDROcodone/acetaminophen (*CRX) 5-325 MG TABLET 1 TAB PO ×2 (05:12→13:18)
[2022-01-30 06:34] LABS: Alanine Aminotransferase 12 U/L (6-50); Albumin Level 3.2 g/dL (3.5-5.1); Alkaline Phosphatase 73 U/L (38-126); Anion Gap 9 mmol/L (8-16); Aspartate Amino Transferase 16 U/L (17-59); Bilirubin,Total 0.5 mg/dL (0.2-1.3); Blood Urea Nitrogen 2 mg/dL (9-20); Calcium 7.9 mg/dL (8.4-10.2); Carbon Dioxide 25 mmol/L (22-30); Chloride 103 mmol/L (98-107); Estimated CRCL calculation 91 ml/min; Estimated Glomerular Filt Rate > 60; Glucose 116 mg/dL (65-110); Magnesium 1.4 mg/dL (1.6-2.3); Potassium 3.7 mmol/L (3.4-5.0); Sodium 137 mmol/L (137-145)
--- NOTE | 2022-01-30 07:45 | P.PNIM_ITS ---
Progress Note: A&P Assessment and Plan (1) Back pain: Code(s): M54.9 - Dorsalgia, unspecified Status: Acute Assessment and Plan: * chronic in nature * discontinue morphine sulfate. * Continue [place] 5/325 p.o. q.6 hours p.r.n.. (2) Cholecystitis: Code(s): K81.9 - Cholecystitis, unspecified Status: Acute Assessment and Plan: * History of acute cholecystitis status post cholecystectomy tube that was placed on 12/30/2021 * To remove by patient * CT of the abdomen pelvis showed moderate distention of the gallbladder, gallbladder wall thickening, possible cholelithiasis * General surgery consulted * Diet advanced per surgery currently low-fat * HIDA scan performed showed acute cholecystitis with no activity in the gallbladder * LFT stable and within normal limits * Antiemetics on board * Reconsider cholecystectomy tube * Pain medications on board (3) Asymptomatic bacteriuria: Code(s): R82.71 - Bacteriuria Status: Resolved Assessment and Plan: * CT indicated 2 large bladder stones and frequent UTIs * Urology consulted * Will plan for outpatient treatment * Continue trend urine output (4) Hypertension: Code(s): I10 - Essential (primary) hypertension Status: Acute Assessment and Plan: * Current blood pressure 126/83 * Continue home metoprolol and losartan for now * Trend blood pressure * Adjust therapy as indicated (5) Bladder calculus: Code(s): N21.0 - Calculus in bladder Status: Acute Assessment and Plan: * CT indicated 2 large bladder stones and frequent UTIs * Urology consulted * Will plan for outpatient treatment * Continue trend urine output (6) Coronary artery disease: Qualifiers: Coronary Disease-Associated Artery/Lesion type: [place] artery [place] vs . transplanted heart: [place] heart Associated angina: without angina Qualified Code(s): I25.10 - Atherosclerotic heart disease of [place] coronary artery without angina pectoris Code(s): I25.10 - Atherosclerotic heart disease of [place] coronary artery without angina pectoris Status: Chronic Assessment and Plan: * Continue aspirin * Plavix on hold for possible procedure (7) Dementia: Qualifiers: Dementia type: unspecified type Dementia severity: moderate Dementia behavioral or psychological symptom: without behavioral, psychotic, or mood disturbance or anxiety Qualified Code(s): F03.B0 - Unspecified dementia, moderate, without behavioral disturbance, psychotic disturbance, mood disturbance, and anxiety Code(s): F03.90 - Unspecified dementia, unspecified severity, without behavioral disturbance, psychotic disturbance, mood disturbance, and anxiety Status: Chronic Assessment and Plan: * Continue home medications * Trend mood * Adjust therapy as indicated (8) Hypokalemia: Code(s): E87.6 - Hypokalemia Status: Acute Assessment and Plan: * Potassium stable today at 3.7 * Trend labs * Replace as indicated (9) Anemia: Qualifiers: Anemia type: unspecified type Qualified Code(s): D64.9 - Anemia, unspecified Code(s): D64.9 - Anemia, unspecified Status: Chronic Assessment and Plan: * Current H&H 9.2/
--- NOTE | 2022-01-30 07:45 | PM.IMPN ---
Progress Note: A&P Assessment and Plan (1) Back pain: Code(s): M54.9 - Dorsalgia, unspecified Status: Acute Assessment and Plan: chronic in nature discontinue morphine sulfate. Continue [place] 5/325 p.o. q.6 hours p.r.n.. (2) Cholecystitis: Code(s): K81.9 - Cholecystitis, unspecified Status: Acute Assessment and Plan: History of acute cholecystitis status post cholecystectomy tube that was placed on 12/30/2021 To remove by patient CT of the abdomen pelvis showed moderate distention of the gallbladder, gallbladder wall thickening, possible cholelithiasis General surgery consulted Diet advanced per surgery currently low-fat HIDA scan performed showed acute cholecystitis with no activity in the gallbladder LFT stable and within normal limits Antiemetics on board Reconsider cholecystectomy tube Pain medications on board (3) Asymptomatic bacteriuria: Code(s): R82.71 - Bacteriuria Status: Resolved Assessment and Plan: CT indicated 2 large bladder stones and frequent UTIs Urology consulted Will plan for outpatient treatment Continue trend urine output (4) Hypertension: Code(s): I10 - Essential (primary) hypertension Status: Acute Assessment and Plan: Current blood pressure 126/83 Continue home metoprolol and losartan for now Trend blood pressure Adjust therapy as indicated (5) Bladder calculus: Code(s): N21.0 - Calculus in bladder Status: Acute Assessment and Plan: CT indicated 2 large bladder stones and frequent UTIs Urology consulted Will plan for outpatient treatment Continue trend urine output (6) Coronary artery disease: Qualifiers: Coronary Disease-Associated Artery/Lesion type: [place] artery [place] vs. transplanted heart: [place] heart Associated angina: without angina Qualified Code(s): I25.10 - Atherosclerotic heart disease of [place] coronary artery without angina pectoris Code(s): I25.10 - Atherosclerotic heart disease of [place] coronary artery without angina pectoris Status: Chronic Assessment and Plan: Continue aspirin Plavix on hold for possible procedure (7) Dementia: Qualifiers: Dementia type: unspecified type Dementia severity: moderate Dementia behavioral or psychological symptom: without behavioral, psychotic, or mood disturbance or anxiety Qualified Code(s): F03.B0 - Unspecified dementia, moderate, without behavioral disturbance, psychotic disturbance, mood disturbance, and anxiety Code(s): F03.90 - Unspecified dementia, unspecified severity, without behavioral disturbance, psychotic disturbance, mood disturbance, and anxiety Status: Chronic Assessment and Plan: Continue home medications Trend mood Adjust therapy as indicated (8) Hypokalemia: Code(s): E87.6 - Hypokalemia Status: Acute Assessment and Plan: Potassium stable today at 3.7 Trend labs Replace as indicated (9) Anemia: Qualifiers: Anemia type: unspecified type Qualified Code(s): D64.9 - Anemia, unspecified Code(s): D64.9 - Anemia, unspecified Status: Chronic Assessment and Plan: Current H&H 9.2/30.3 Anemia labs in the a.m. Supplement as indicated Trend H&H Transfuse if hemoglobin less than 7 Time Spent With Patient Time with patient: Greater than 35 minutes Subjective Date/time seen: 01/30/22744 Interval history: This is a 71-year-old male he is a senior living resident, past medical history significant for coronary artery disease, dementia, hypertension, peripheral artery disease, cholecystitis status post cholecystotomy with drain placed however patient lost his cholecystostomy tube and was brought for? evaluation. 01/30/22744 Patient stated that he is okay ho
[2022-01-30 07:50] LABS: Basophils Percent Auto 0.4 % (0.2-1.2); Eosinophils Absolute Auto 0.4 K/mm3 (0-0.3); Eosinophils Percent Auto 4.5 % (0-4.4); Hematocrit 30.3 % (42.0-52.0); Hemoglobin 9.2 g/dL (14.0-18.0); Immature Granulocyte Absolute 0.07 K/mm3 (0.00-0.031); Immature Granulocyte Percent A 0.8 % (0-0.5); Lymphocytes Absolute Auto 1.75 K/mm3 (0.9-3.2); Lymphocytes Percent Auto 21.1 % (18.3-44.2); Mean Corpuscular HGB Conc 30.4 g/dl (32-36); Mean Corpuscular Hemoglobin 27.3 pg (26-34); Mean Corpuscular Volume 89.9 fl (80-100); Mean Platelet Volume 9.9 fl (7.4-10.4); Monocytes Absolute Auto 0.9 K/mm3 (0.1-0.6); Monocytes Percent Auto 10.6 % (2.6-8.5); Neutrophils Absolute Auto 5.2 K/mm3 (1.3-6.7); Neutrophils Percent Auto 62.6 % (45.5-73.1); Platelet Count Result 204 k/mm3 (150-375); Red Blood Count 3.37 M/mm3 (4.6-6.20); Red Cell Distribution Width 20.4 % (11.5-14.5); White Blood Count 8.3 K/mm3 (4.5-10.0)
[2022-01-30] MEDS: VENLAFAXINE HCL 75 MG TABLET 150 MG PO (08:56)
[2022-01-30] MEDS: ASPIRIN 81 MG CHEWABLE TABLET PO (08:56)
[2022-01-30] MEDS: SENNA/DOCUSATE SODIUM TABLET 2 TAB PO (08:56)
[2022-01-30] MEDS: PANTOPRAZOLE SODIUM IV 40 MG VIAL IV PUSH (08:56)
[2022-01-30] MEDS: MAGNESIUM SULF 4 GM/WATER100ML 4 GM/100 ML BAG IVPB (08:56)
[2022-01-30] MEDS: METOPROLOL TARTRATE 25 MG TABLET PO ×2 (08:57→21:13)
[2022-01-30] MEDS: ENOXAPARIN 40 MG/0.4 ML SYRINGE SUB-Q (08:57)
[2022-01-30] MEDS: polyethylene glycoL 3350 17 GM POWD.PACK PO (08:57)
[2022-01-30] MEDS: KCL 40 MEQ/D5/0.9% SOD CHL 1,000 ML 100 ML IV CONT ×2 (08:59→20:55)
[2022-01-30] MEDS: AMOXICILLIN/CLAVULANATE K 875-125 MG TAB 1 TABLET PO ×2 (13:18→21:13)
--- NOTE | 2022-01-30 14:26 | PM.PNGS ---
Progress Note: A&P Assessment and Plan (1) Cholecystitis: Code(s): K81.9 - Cholecystitis, unspecified Status: Acute Assessment and Plan: long d/w pt and daughter (POA) re: surgery vs replacement of perc cholecystostomy, daughter would like some time to d/w family prior to making decision, cont abx, encourage po (2) Coronary artery disease: Qualifiers: Coronary Disease-Associated Artery/Lesion type: [place] artery [place] vs. transplanted heart: [place] heart Associated angina: without angina Qualified Code(s): I25.10 - Atherosclerotic heart disease of [place] coronary artery without angina pectoris Code(s): I25.10 - Atherosclerotic heart disease of [place] coronary artery without angina pectoris Status: Chronic Assessment and Plan: will get cardiology consult for operative clearance Subjective Subjective Date/Time Seen: 01/30/22 14:26 still c poor appetite, bloating, nausea, no abd pain, somewhat confused but likely at baseline Review of Systems Review of Systems: ROS unobtainable: Yes unobtainable due to mental status Exam Const: General: cooperative and no acute distress Resp: Auscultation: clear to auscultation bilaterally Cardio: Rate: regular rate Rhythm: regular rhythm GI: Inspection: normal to inspection and distended GI Palp: No abdominal tenderness, Yes Soft to palpation, No Tenderness to palpation present (GI), No Guarding due to palpation present (GI) and No Rigid due to palpation Objective Data Vital Signs Vital Signs: Vital Signs - 24 hr 01/29/22 16:00 01/29/22 21:52 01/29/22 21:55 Temperature 36.8 C Pulse Rate 109 H 105 H 105 H Respiratory Rate 18 Blood Pressure 132/78 Pulse Oximetry 96 Oxygen Delivery 01/29/22 20:00 01/29/22 20:00 01/30/22 00:00 Temperature Pulse Rate 110 H 100 Respiratory Rate Blood Pressure Pulse Oximetry Oxygen Delivery Room Air 01/30/22 04:00 01/30/22 05:10 01/30/22 08:57 Temperature 36.8 C Pulse Rate 100 105 H 100 Respiratory Rate 18 Blood Pressure 108/82 Pulse Oximetry 99 Oxygen Delivery 01/30/22 13:45 01/30/22 08:00 Temperature 36.3 C L Pulse Rate 65 Respiratory Rate 18 Blood Pressure 126/83 Pulse Oximetry 97 Oxygen Delivery Room Air Intake/Output Intake/Output: Intake & Output 01/27/22 01/28/22 01/29/22 01/30/22 23:59 23:59 23:59 23:59 Intake Total 2320 2450 2400 1350 Output Total 300 1100 2100 3150 Balance 2019 1350 300 -1800 Meds/Results Medications: Active Medications Generic Name Dose Route Start Last Admin Trade Name Freq PRN Reason Stop Dose Admin Acetaminophen 650 mg 01/23/22 23:48 Acetaminophen 325 Mg Tablet PO Q6H PRN Pain Rated 1-3 Hydrocodone Bitart/Acetaminophen 1 tab 01/29/22 09:05 01/30/22 13:18 Hydrocodone/Acetaminophen (*Crx) 5-325 Mg Tablet PO 1 tab Q6H PRN Administration Pain Rated 4-6 Amoxicillin/Clavulanate Potassium 1 tablet 01/30/22 09:10 01/30/22 13:18 Amoxicillin/Clavulanate K 875-125 Mg Tab PO 1 tablet Q12HR MYA Administration Aspirin 81 mg 01/24/22 09:00 01/30/22 08:56 Aspirin 81 Mg Chewable Tablet PO 81 mg DAILY MYA Administration Atorvastatin Calcium 80 mg 01/24/22 21:00 01/25/22 20:44 Atorvastatin 40 Mg Tablet PO 80 mg HS MYA Administration Bisacodyl 10 mg 01/27/22 12:05 Bisacodyl 10 Mg Suppository RECTAL QAM PRN Constipation Bupropion HCl 150 mg 01/24/22 09:00 01/27/22 14:33 Bupropion Hcl Xl (24 Hr) 150 Mg Tabcr PO Not Given DAILY MYA Clopidogrel Bisulfate 75 mg 01/24/22 09:00 01/26/22 09:45 Clopidogrel Bisulfate 75 Mg Tablet PO 75 mg DAILY MYA Administration Cyclobenzaprine HCl 5 mg 01/26/22 14:40 Cyclobenzaprine Hcl 5 Mg Tablet PO TID PRN Muscle Spasm Diclofenac Sodium 1 applic 01/27/22 09:50 Diclofenac Sodium 1% 100 Gm Gel (*Bkc) TOPICAL QID PRN joint gerardo
--- NOTE | 2022-01-30 16:36 | PM.CNCAR ---
Assessment and Plan Assessment and plan (1) Preoperative cardiovascular examination: Code(s): Z01.810 - Encounter for preprocedural cardiovascular examination Status: Acute Assessment and Plan: Patient presents with recurrent cholecystitis, with plans for cholecystectomy. At this time he seems cardiovascularly stable with no evidence of ACS, angina, or heart failure. Last dose of clopidogrel was on the ; has been held since then. Tomorrow be the 5th day off clopidogrel. Aspirin has been continued In general we prefer continuing dual anti-platelet therapy for 12 months after coronary stents, particularly if the stents were placed in this situation of acute coronary syndrome. On the other hand, the patient has had recurrent problems with cholecystitis, anorexia etc. Having 2 stents and in the setting of ACS increases his risk for stent thrombosis. On the good side of things the stents were large 3 mm stents, it has been more than 5 months since his event, and the newer stents have a lower risk of thrombosis. Will repeat an EKG pre-op today. Overall his CV risk for the proposed surgery is moderate, but he is in optimal condition to proceed w/ surgery if cholecystectomy is deemed necessary. Discussed w/ ; risk is higher than average due to his CAD and stents but pt appears stable and his risk reasonable. Resume clopidogrel NATHALIE when deemed safe by Dr. Cornelius. (2) Coronary artery disease: Qualifiers: Associated angina: without angina Coronary Disease-Associated Artery/Lesion type: [place] artery [place] vs. transplanted heart: [place] heart Qualified Code(s): I25.10 - Atherosclerotic heart disease of [place] coronary artery without angina pectoris Code(s): I25.10 - Atherosclerotic heart disease of [place] coronary artery without angina pectoris Status: Chronic Assessment and Plan: CAD, MS? in July 2021 treated with two stents. 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 Now only mild by CT scan (4) Dementia: Qualifiers: Dementia behavioral or psychological symptom: without behavioral, psychotic, or mood disturbance or anxiety Dementia severity: moderate Dementia type: unspecified type Qualified Code(s): F03.B0 - Unspecified dementia, moderate, without behavioral disturbance, psychotic disturbance, mood disturbance, and anxiety Code(s): F03.90 - Unspecified dementia, unspecified severity, without behavioral disturbance, psychotic disturbance, mood disturbance, and anxiety Status: Chronic Assessment and Plan: Patient has dementia, poor mobility, and possibly some malnutrition which also increases his risk of surgery. History of Present Illness History of Present Illness Consult date/time: 01/30/22 16:36 Reason For Visit: UTI, Tachycardia Narrative: Juan Pablo Almaraz is a 71-year-old male who was admitted with acute cholecystitis. Rest of cm at the request of Dr. Cornelius for our advice and opinion regarding his perioperative cardiac risk. He is planning a cholecystectomy tomorrow. The patient has a history of CAD, MS and coronary stent 07/2021. Also h/o dementia and lives in a detention. Mr. Almaraz apparently had an MS and underwent a complicated coronary intervention (3.0 x 8 mm 3.0 x 12 mm Resolute drug-eluting stent and 3.0 x 40 mm drug-eluting stent of the RCA 08/11/21) at [facility] where vessel dissection of the RCA was noted.? He had been on anticoagulation including dual antiplatelet therapy and was discharged from [facility] on DVT dosing enoxaparin and DAPT.? He was then started back on Eliquis 5 mg twice daily as [facility] facility in addition to aspirin and Plavix.? He was found to have a small to moderate pericardial effusion without jarrell
[2022-01-30] MEDS: TAMSULOSIN HCL 0.4 MG CAPSULE PO (21:13)
[2022-01-30] MEDS: FINASTERIDE 5 MG TABLET PO (21:13)
[2022-01-31] VITALS (12 sets, daily range): BP systolic 100–143; BP diastolic 47–78; PULSE 95–114; RESP 16–20; TEMP 36.3–36.6; O2SAT 95–100
[2022-01-31 05:56] LABS: Alanine Aminotransferase 11 U/L (6-50); Albumin Level 3.1 g/dL (3.5-5.1); Alkaline Phosphatase 77 U/L (38-126); Anion Gap 8 mmol/L (8-16); Aspartate Amino Transferase 16 U/L (17-59); Bilirubin,Total 0.5 mg/dL (0.2-1.3); Blood Urea Nitrogen 2 mg/dL (9-20); Calcium 7.9 mg/dL (8.4-10.2); Carbon Dioxide 26 mmol/L (22-30); Chloride 103 mmol/L (98-107); Estimated CRCL calculation 91 ml/min; Estimated Glomerular Filt Rate > 60; Glucose 109 mg/dL (65-110); Magnesium 2.2 mg/dL (1.6-2.3); Potassium 4.2 mmol/L (3.4-5.0); Sodium 137 mmol/L (137-145)
[2022-01-31] MEDS: KCL 40 MEQ/D5/0.9% SOD CHL 1,000 ML 100 ML IV CONT ×2 (06:56→16:52)
--- NOTE | 2022-01-31 08:15 | PM.IMPN ---
Progress Note: A&P Assessment and Plan (1) Back pain: Code(s): M54.9 - Dorsalgia, unspecified Status: Acute Assessment and Plan: chronic in nature discontinue morphine sulfate. Continue [place] 5/325 p.o. q.6 hours p.r.n.. (2) Cholecystitis: Code(s): K81.9 - Cholecystitis, unspecified Status: Acute Assessment and Plan: History of acute cholecystitis status post cholecystectomy tube that was placed on 12/30/[address] of the abdomen pelvis showed moderate distention of the gallbladder, gallbladder wall thickening, possible cholelithiasis General surgery consulted Diet advanced per surgery, NPO for scheduled procedure HIDA scan performed showed acute cholecystitis with no activity in the gallbladder LFT stable and within normal limits Antiemetics on board Sounds like surgery verse medical management, family appears to be opting for surgery Pain medications on board (3) Asymptomatic bacteriuria: Code(s): R82.71 - Bacteriuria Status: Resolved Assessment and Plan: CT indicated 2 large bladder stones and frequent UTIs Urology consulted Will plan for outpatient treatment Continue trend urine output (4) Hypertension: Code(s): I10 - Essential (primary) hypertension Status: Acute Assessment and Plan: Current blood pressure 143/78 Continue home metoprolol and losartan for now Trend blood pressure Adjust therapy as indicated (5) Bladder calculus: Code(s): N21.0 - Calculus in bladder Status: Acute Assessment and Plan: CT indicated 2 large bladder stones and frequent UTIs Urology consulted Will plan for outpatient treatment Continue trend urine output (6) Coronary artery disease: Qualifiers: Associated angina: without angina Coronary Disease-Associated Artery/Lesion type: [place] artery [place] vs. transplanted heart: [place] heart Qualified Code(s): I25.10 - Atherosclerotic heart disease of [place] coronary artery without angina pectoris Code(s): I25.10 - Atherosclerotic heart disease of [place] coronary artery without angina pectoris Status: Chronic Assessment and Plan: Continue aspirin Plavix on hold for possible procedure Plavix for stent placement Will resume plavix when ok'd by surgery (7) Dementia: Qualifiers: Dementia behavioral or psychological symptom: without behavioral, psychotic, or mood disturbance or anxiety Dementia severity: moderate Dementia type: unspecified type Qualified Code(s): F03.B0 - Unspecified dementia, moderate, without behavioral disturbance, psychotic disturbance, mood disturbance, and anxiety Code(s): F03.90 - Unspecified dementia, unspecified severity, without behavioral disturbance, psychotic disturbance, mood disturbance, and anxiety Status: Chronic Assessment and Plan: Continue home medications Trend mood Adjust therapy as indicated (8) Hypokalemia: Code(s): E87.6 - Hypokalemia Status: Acute Assessment and Plan: Potassium stable today at 4.2 Trend labs Replace as indicated Stable (9) Anemia: Qualifiers: Anemia type: unspecified type Qualified Code(s): D64.9 - Anemia, unspecified Code(s): D64.9 - Anemia, unspecified Status: Chronic Assessment and Plan: Current H&H 9.2/30.3 Anemia labs in the a.m. Supplement as indicated Trend H&H Transfuse if hemoglobin less than 7 Time Spent With Patient Time with patient: Greater than 35 minutes Subjective Date/time seen: 01/31/22 0815 Interval history: This is a 71-year-old male he is a care home resident, past medical history significant for coronary artery disease, dementia, hypertension, peripheral artery disease, cholecystitis status post cholecystotomy with d
--- NOTE | 2022-01-31 08:15 | P.PNIM_ITS ---
Progress Note: A&P Assessment and Plan (1) Back pain: Code(s): M54.9 - Dorsalgia, unspecified Status: Acute Assessment and Plan: * chronic in nature * discontinue morphine sulfate. * Continue [place] 5/325 p.o. q.6 hours p.r.n.. (2) Cholecystitis: Code(s): K81.9 - Cholecystitis, unspecified Status: Acute Assessment and Plan: * History of acute cholecystitis status post cholecystectomy tube that was placed on 12/30/2021 * removed by patient * CT of the abdomen pelvis showed moderate distention of the gallbladder, gallbladder wall thickening, possible cholelithiasis * General surgery consulted * Diet advanced per surgery, NPO for scheduled procedure * HIDA scan performed showed acute cholecystitis with no activity in the gallbladder * LFT stable and within normal limits * Antiemetics on board * Sounds like surgery verse medical management, family appears to be opting for surgery * Pain medications on board (3) Asymptomatic bacteriuria: Code(s): R82.71 - Bacteriuria Status: Resolved Assessment and Plan: * CT indicated 2 large bladder stones and frequent UTIs * Urology consulted * Will plan for outpatient treatment * Continue trend urine output (4) Hypertension: Code(s): I10 - Essential (primary) hypertension Status: Acute Assessment and Plan: * Current blood pressure 143/78 * Continue home metoprolol and losartan for now * Trend blood pressure * Adjust therapy as indicated (5) Bladder calculus: Code(s): N21.0 - Calculus in bladder Status: Acute Assessment and Plan: * CT indicated 2 large bladder stones and frequent UTIs * Urology consulted * Will plan for outpatient treatment * Continue trend urine output (6) Coronary artery disease: Qualifiers: Associated angina: without angina Coronary Disease-Associated Artery/Lesion type: [place] artery [place] vs. transplanted heart: [place] heart Qualified Code(s): I25.10 - Atherosclerotic heart disease of [place] coronary artery without angina pectoris Code(s): I25.10 - Atherosclerotic heart disease of [place] coronary artery without angina pectoris Status: Chronic Assessment and Plan: * Continue aspirin * Plavix on hold for possible procedure * Plavix for stent placement * Will resume plavix when ok'd by surgery (7) Dementia: Qualifiers: Dementia behavioral or psychological symptom: without behavioral, psychotic, or mood disturbance or anxiety Dementia severity: moderate Dementia type: unspecified type Qualified Code(s): F03.B0 - Unspecified dementia, moderate, without behavioral disturbance, psychotic disturbance, mood disturbance, and anxiety Code(s): F03.90 - Unspecified dementia, unspecified severity, without behavioral disturbance, psychotic disturbance, mood disturbance, and anxiety Status: Chronic Assessment and Plan: * Continue home medications * Trend mood * Adjust therapy as indicated (8) Hypokalemia: Code(s): E87.6 - Hypokalemia Status: Acute Assessment and Plan: * Potassium stable today at 4.2 * Trend labs * Replace as indicated * Stable (9) Anemia: Qualifiers: Anemia type: unspecified type Qualified Code(s): D
[2022-01-31] MEDS: METOPROLOL TARTRATE 25 MG TABLET PO ×2 (08:21→20:46)
[2022-01-31] MEDS: AMOXICILLIN/CLAVULANATE K 875-125 MG TAB 1 TABLET PO ×2 (08:21→20:45)
[2022-01-31] MEDS: PANTOPRAZOLE SODIUM IV 40 MG VIAL IV PUSH (08:27)
[2022-01-31] MEDS: VENLAFAXINE HCL 75 MG TABLET 150 MG PO (08:27)
[2022-01-31 08:32] LABS: Transferrin 90 mg/dL (206-381)
[2022-01-31] MEDS: ONDANSETRON INJ 4 MG/2 ML VIAL IV PUSH (08:35)
[2022-01-31 09:30] LABS: Folic Acid 2.4 ng/mL (2.76->20)
--- NOTE | 2022-01-31 10:25 | ECG_ITS ---
Measurements Intervals [place] Rate: 103 P: 41 TN: 186 QRS: 2 QRSD: 97 T: 231 QT: 348 QTc: 456 Interpretive Statements SINUS TACHYCARDIA LOW QRS VOLTAGE IN PRECORDIAL LEADS INFERIOR INFARCT, AGE INDETERMINATE BORDERLINE ST-T WAVE ABNORMALITY- ANTEROLAT/HIGH LAT LEADS ABNORMAL ECG COMPARED TO ECG 01/23/2022 17:01:46 HEART RATE HAS DECREASED Electronically Signed On 01-31-2022 11:42:29 CDT by Andrea Yanes D.O.
--- NOTE | 2022-01-31 12:26 | WPDHPUPDATE1 ---
History and Physical Update Update Date/Time: 01/31/22 12:26 History and Physical has been reviewed, including an updated exam of the patient. There are NO changes in the patient's condition. Risks, benefits, and alternatives have been discussed and questions answered. Patient agrees to proceed with procedure. Appreciate cardiology input, d/w pt and family and decision to proceed c cholecystectomy
--- NOTE | 2022-01-31 13:10 | PM.PNGS ---
Progress Note: A&P Assessment and Plan (1) Cholecystitis: Code(s): K81.9 - Cholecystitis, unspecified Status: Acute Assessment and Plan: plan for cholecystectomy, was planning this afternoon but some difficulty obtaining consent and procedure now scheduled for tomorrow am, ok to have low fat diet for now (2) Coronary artery disease: Qualifiers: Coronary Disease-Associated Artery/Lesion type: [place] artery [place] vs. transplanted heart: [place] heart Associated angina: without angina Qualified Code(s): I25.10 - Atherosclerotic heart disease of [place] coronary artery without angina pectoris Code(s): I25.10 - Atherosclerotic heart disease of [place] coronary artery without angina pectoris Status: Chronic Assessment and Plan: appreciate cardiology input, cont to hold Plavix Subjective Subjective Date/Time Seen: 01/31/22 13:10 no acute issues, still not eating much, no pain Review of Systems Review of Systems: All systems reviewed & are unremarkable except as noted in HPI and below Exam Const: General: cooperative, no acute distress, ill appearing and obese Resp: Auscultation: diminished lung sounds Cardio: Rate: tachycardic Rhythm: regular rhythm GI: GI Palp: No abdominal tenderness, Yes Soft to palpation, No Tenderness to palpation present (GI), No Guarding due to palpation present (GI) and No Rigid due to palpation Objective Data Vital Signs Vital Signs: Vital Signs - 24 hr 01/30/22 13:45 01/30/22 16:00 01/30/22 19:23 Temperature 36.3 C L 36.1 C L Pulse Rate 65 102 H 102 H Respiratory Rate 18 20 Blood Pressure 126/83 115/66 Pulse Oximetry 97 97 Oxygen Delivery 01/30/22 21:13 01/30/22 20:00 01/30/22 20:00 Temperature Pulse Rate 102 H 107 H Respiratory Rate Blood Pressure Pulse Oximetry Oxygen Delivery Room Air 01/31/22 00:00 01/31/22 03:13 01/31/22 04:00 Temperature 36.3 C L Pulse Rate 95 101 H 97 Respiratory Rate 20 Blood Pressure 143/78 H Pulse Oximetry 100 Oxygen Delivery 01/31/22 08:21 01/31/22 08:00 01/31/22 08:00 Temperature Pulse Rate 107 H 100 Respiratory Rate Blood Pressure Pulse Oximetry Oxygen Delivery Room Air 01/31/22 12:46 Temperature 36.6 C Pulse Rate 98 Respiratory Rate 16 Blood Pressure 132/73 Pulse Oximetry 100 Oxygen Delivery Intake/Output Intake/Output: Intake & Output 01/28/22 01/29/22 01/30/22 01/31/22 23:59 23:59 23:59 23:59 Intake Total 2450 2400 2575 1000 Output Total 1100 2100 3150 2000 Balance 1350 300 -575 -1000 Meds/Results Medications: Active Medications Generic Name Dose Route Start Last Admin Trade Name Freq PRN Reason Stop Dose Admin Acetaminophen 650 mg 01/23/22 23:48 Acetaminophen 325 Mg Tablet PO Q6H PRN Pain Rated 1-3 Hydrocodone Bitart/Acetaminophen 1 tab 01/29/22 09:05 01/30/22 13:18 Hydrocodone/Acetaminophen (*Crx) 5-325 Mg Tablet PO 1 tab Q6H PRN Administration Pain Rated 4-6 Amoxicillin/Clavulanate Potassium 1 tablet 01/30/22 09:10 01/31/22 08:21 Amoxicillin/Clavulanate K 875-125 Mg Tab PO 1 tablet Q12HR MYA Administration Aspirin 81 mg 01/24/22 09:00 01/31/22 12:52 Aspirin 81 Mg Chewable Tablet PO Not Given DAILY MYA Atorvastatin Calcium 80 mg 01/24/22 21:00 01/25/22 20:44 Atorvastatin 40 Mg Tablet PO 80 mg HS MYA Administration Bisacodyl 10 mg 01/27/22 12:05 Bisacodyl 10 Mg Suppository RECTAL QAM PRN Constipation Bupropion HCl 150 mg 01/24/22 09:00 01/27/22 14:33 Bupropion Hcl Xl (24 Hr) 150 Mg Tabcr PO Not Given DAILY MYA Clopidogrel Bisulfate 75 mg 01/24/22 09:00 01/26/22 09:45 Clopidogrel Bisulfate 75 Mg Tablet PO 75 mg DAILY MYA Administration Cyclobenzaprine HCl 5 mg 01/26/22 14:40 Cyclobenzaprine Hcl 5 Mg Tablet PO TID PRN Muscle Spasm Diclofenac Sodium 1 applic 01/27/22 09:5
--- NOTE | 2022-01-31 13:21 | PC.NURSE ---
On 01/31/22, the student, [Daniela Diallo], provided care and completed [facility] documentation on this patient. I have reviewed the student's documentation and agree with the findings.
[2022-01-31 14:33] LABS: Basophils Absolute Auto 0.1 K/mm3 (0.0-0.1); Basophils Percent Auto 0.5 % (0.2-1.2); Eosinophils Absolute Auto 0.5 K/mm3 (0-0.3); Eosinophils Percent Auto 4.9 % (0-4.4); Hematocrit 35.8 % (42.0-52.0); Hemoglobin 11.2 g/dL (14.0-18.0); Immature Granulocyte Absolute 0.03 K/mm3 (0.00-0.031); Immature Granulocyte Percent A 0.3 % (0-0.5); Lymphocytes Absolute Auto 1.85 K/mm3 (0.9-3.2); Lymphocytes Percent Auto 20.2 % (18.3-44.2); Mean Corpuscular HGB Conc 31.3 g/dl (32-36); Mean Corpuscular Hemoglobin 27.4 pg (26-34); Mean Corpuscular Volume 87.5 fl (80-100); Mean Platelet Volume 9.9 fl (7.4-10.4); Monocytes Absolute Auto 1.1 K/mm3 (0.1-0.6); Monocytes Percent Auto 12.5 % (2.6-8.5); Neutrophils Absolute Auto 5.6 K/mm3 (1.3-6.7); Neutrophils Percent Auto 61.6 % (45.5-73.1); Platelet Count Result 275 k/mm3 (150-375); Red Blood Count 4.09 M/mm3 (4.6-6.20); Red Cell Distribution Width 20.9 % (11.5-14.5); White Blood Count 9.1 K/mm3 (4.5-10.0)
[2022-01-31] MEDS: SENNA/DOCUSATE SODIUM TABLET 2 TAB PO (16:52)
[2022-01-31] MEDS: HYDROcodone/acetaminophen (*CRX) 5-325 MG TABLET 1 TAB PO ×2 (16:53→22:57)
--- NOTE | 2022-01-31 18:17 | PM.PNCARD ---
Progress Note: A&P Assessment and Plan (1) Preoperative cardiovascular examination: Code(s): Z01.810 - Encounter for preprocedural cardiovascular examination Status: Acute Assessment and Plan: Patient presents with recurrent cholecystitis, with plans for cholecystectomy. At this time he seems cardiovascularly stable with no evidence of ACS, angina, or heart failure. Last dose of clopidogrel was on the ; has been held since then. . Aspirin has been continued In general we prefer continuing dual anti-platelet therapy for 12 months after coronary stents, particularly if the stents were placed in this situation of acute coronary syndrome. On the other hand, the patient has had recurrent problems with cholecystitis, anorexia etc. Having 2 stents and in the setting of ACS increases his risk for stent thrombosis. On the good side of things the stents were large 3 mm stents, it has been more than 5 months since his event, and the newer stents have a lower risk of thrombosis. Overall his CV risk for the proposed surgery is moderate, but he is in optimal condition to proceed w/ surgery if cholecystectomy is deemed necessary. Resume clopidogrel NATHALIE when deemed safe by Dr. Cornelius. (2) Coronary artery disease: Qualifiers: Coronary Disease-Associated Artery/Lesion type: [place] artery [place] vs. transplanted heart: [place] heart Associated angina: without angina Qualified Code(s): I25.10 - Atherosclerotic heart disease of [place] coronary artery without angina pectoris Code(s): I25.10 - Atherosclerotic heart disease of [place] coronary artery without angina pectoris Status: Chronic Assessment and Plan: CAD, ND? in July 2021 treated with two stents. 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 Now only mild by CT scan (4) Dementia: Qualifiers: Dementia type: unspecified type Dementia severity: moderate Dementia behavioral or psychological symptom: without behavioral, psychotic, or mood disturbance or anxiety Qualified Code(s): F03.B0 - Unspecified dementia, moderate, without behavioral disturbance, psychotic disturbance, mood disturbance, and anxiety Code(s): F03.90 - Unspecified dementia, unspecified severity, without behavioral disturbance, psychotic disturbance, mood disturbance, and anxiety Status: Chronic Assessment and Plan: Patient has dementia, poor mobility, and possibly some malnutrition which also increases his risk of surgery. Subjective Date/time seen: Follow-up for CAD, ACS and RCA stents July 2021. Now admitted with recurrent acute cholecystitis and cholecystectomy planned for 02/01/2022. prison patient with dementia. Date of service 01/31/22 18:17: Surgery was rescheduled for tomorrow. Patient is not feeling well with a lot of nausea and some intermittent abdominal pain. EKG today: Sinus tachycardia rate 102, nonspecific T-wave changes. Old inferior ND. personally reviewed. Review of Systems Review of Systems: No chest pain or shortness of breath. Nausea and abdominal pain. Anorexic. Constitutional: Constitutional: Denies fever(s) Cardiovascular: Cardiovascular: Denies chest pain, Denies pedal edema, Denies lightheadedness and Denies dyspnea Respiratory: Respiratory: Denies chest congestion and Denies dyspnea Gastrointestinal: Gastrointestinal: Denies abdominal pain and Denies hematochezia Musculoskeletal: Musculoskeletal: Reports no additional musculoskeletal complaints Integumentary/Breasts: Skin/Breast: Reports system reviewed and no additional complaints, except as docu Neurologic: Reports system reviewed and no additional complaints, except as documented, Denies behavioral changes and Denies confusion P
[2022-01-31] MEDS: FINASTERIDE 5 MG TABLET PO (20:46)
[2022-01-31] MEDS: TAMSULOSIN HCL 0.4 MG CAPSULE PO (20:46)
[2022-02-01] VITALS (24 sets, daily range): BP systolic 90–146; BP diastolic 53–92; PULSE 77–103; RESP 12–23; TEMP 36.2–36.5; O2SAT 95–100
[2022-02-01 06:22] LABS: Alanine Aminotransferase 11 U/L (6-50); Albumin Level 3.3 g/dL (3.5-5.1); Alkaline Phosphatase 65 U/L (38-126); Anion Gap 9 mmol/L (8-16); Aspartate Amino Transferase 23 U/L (17-59); Bilirubin,Total 0.9 mg/dL (0.2-1.3); Blood Urea Nitrogen 2 mg/dL (9-20); Calcium 7.9 mg/dL (8.4-10.2); Carbon Dioxide 23 mmol/L (22-30); Chloride 103 mmol/L (98-107); Estimated CRCL calculation 91 ml/min; Estimated Glomerular Filt Rate > 60; Glucose 88 mg/dL (65-110); Potassium 4.7 mmol/L (3.4-5.0); Sodium 135 mmol/L (137-145)
[2022-02-01 07:49] LABS: Basophils Percent Auto 0.4 % (0.2-1.2); Eosinophils Absolute Auto 0.4 K/mm3 (0-0.3); Hematocrit 28.8 % (42.0-52.0); Hemoglobin 10.5 g/dL (14.0-18.0); Immature Granulocyte Absolute 0.06 K/mm3 (0.00-0.031); Immature Granulocyte Percent A 0.7 % (0-0.5); Lymphocytes Absolute Auto 2.44 K/mm3 (0.9-3.2); Lymphocytes Percent Auto 29.7 % (18.3-44.2); Mean Corpuscular HGB Conc 36.5 g/dl (32-36); Mean Platelet Volume 10.2 fl (7.4-10.4); Monocytes Percent Auto 12.2 % (2.6-8.5); Neutrophils Absolute Auto 4.3 K/mm3 (1.3-6.7); Platelet Count Result 259 k/mm3 (150-375); White Blood Count 8.2 K/mm3 (4.5-10.0)
[2022-02-01 08:20] LABS: Acanthocytes 1+ (NORMAL); Burr Cells 1+ (NORMAL); Platelet Estimate Adequate (Adequate); Schistocytes None Seen (NORMAL)
[2022-02-01] MEDS: METOPROLOL TARTRATE 25 MG TABLET PO ×2 (08:40→20:22)
[2022-02-01] MEDS: LACTATED RINGERS 1,000 ML 30 ML IV CONT ×2 (09:00→11:53)
--- NOTE | 2022-02-01 09:32 | WPDANESEPPF ---
Anes - Initial Pre Proc Eval Procedure: Operation Date: 02/01/22 10:00 Proposed Procedures p Laparoscopic Cholecystectomy - Evelyn Cornelius MD Date/Time: 02/01/22 09:32 Surgeon: KETTY Islas Pre Op Diagnosis: UTI, Tachycardia Patient Data Age: 71 Gender: M Height: 1.73 m Weight: 96.6 kg Last Vital Signs Temp 36.4 C 02/01/22 08:22 Pulse 90 02/01/22 08:40 Resp 18 02/01/22 08:22 BP 110/63 02/01/22 08:22 Pulse Ox 100 02/01/22 08:22 O2 Del Method Room Air 01/31/22 15:34 Allergies Allergy/AdvReac Type Severity Reaction Status Date / Time prednisone Allergy Severe COMA FOR 1 Verified 12/29/21 20:51 YEAR Home Medications Medication Instructions Recorded Confirmed Type acetaminophen 325 mg chewable 650 mg PO Q6H PRN Pain, Mild 12/11/21 01/23/22 History tablet aspirin 81 mg chewable tablet 81 mg PO DAILY 12/11/21 01/23/22 History atorvastatin 80 mg tablet 80 mg PO HS 12/11/21 01/23/22 History clopidogrel 75 mg tablet 75 mg PO DAILY 12/11/21 01/23/22 History cyclobenzaprine 5 mg tablet 5 mg PO TID 12/11/21 01/23/22 History diclofenac sodium 1 % topical gel 1 ea topical DAILY 12/11/21 01/23/22 History diflorasone 0.05 % topical cream 1 applic topical DAILY 12/11/21 01/23/22 History insulin glargine 100 unit/mL (3 5 unit subcut HS 12/11/21 01/23/22 History mL) subcutaneous pen pantoprazole 40 mg tablet,delayed 40 mg PO BID 12/11/21 01/23/22 History release polyethylene glycol 3350 17 17 g PO DAILY 12/11/21 01/23/22 History gram/dose oral powder quetiapine 25 mg tablet (Seroquel) 12.5 mg PO BID PRN Agitation 12/11/21 01/23/22 History venlafaxine 75 mg tablet 150 mg PO DAILY 12/11/21 01/23/22 History apixaban 5 mg tablet (Eliquis) 5 mg PO BID 12/30/21 01/23/22 History linagliptin 5 mg tablet (Tradjenta) 5 mg PO DAILY 12/30/21 01/23/22 History dronabinol 2.5 mg capsule (Marinol) 2.5 mg PO Q12HR 30 days #60 caps 01/07/22 01/23/22 Rx melatonin 5 mg tablet 5 mg PO HS #30 tabs 01/07/22 01/23/22 Rx metoprolol tartrate 25 mg tablet 12.5 mg PO BID #21 tabs 01/07/22 01/23/22 Rx oxycodone 5 mg tablet 5 mg PO BID PRN Pain Rated 4-6 3 01/07/22 01/23/22 Rx days #12 tabs tamsulosin 0.4 mg capsule 0.4 mg PO HS #30 caps 01/07/22 01/23/22 Rx potassium chloride 20 mEq 20 meq PO DAILY #30 tabs 01/08/22 01/23/22 Rx tablet,extended release bupropion HCl 150 mg 24 hr tablet, 150 mg PO DAILY 01/23/22 01/23/22 History extended release (Wellbutrin XL) carvedilol 25 mg tablet 25 mg PO BID 01/23/22 01/23/22 History gabapentin 100 mg capsule 100 mg PO Q8H 01/23/22 01/23/22 History losartan 25 mg tablet 25 mg PO DAILY 01/23/22 01/23/22 History Laboratory Tests 01/31/22 02/01/22 02/01/22 11:34 05:30 05:30 WBC 9.1 K/mm3 K/mm3 8.2 K/mm3 K/mm3 (4.5-10.0) (4.5-10.0) RBC 4.09 M/mm3 L M/mm3 3.00 M/mm3 L M/mm3 (4.6-6.20) (4.6-6.20) Hgb 11.2 g/dL L g/dL 10.5 g/dL L g/dL (14.0-18.0) (14.0-18.0) Hct 35.8 % L % 28.8 % L % (42.0-52.0) (42.0-52.0) MCV 87.5 fl fl 96.0 fl D fl (80-100) (80-100) MCH 27.4 pg pg 35.0 pg H D pg (26-34) (26-34) MCHC 31.3 g/dl L g/dl 36.5 g/dl H g/dl (32-36) (32-36) RDW 20.9 % H % 26.0 % H % (11.5-14.5) (11.5-14.5) Plt Count 275 k/mm3 k/mm3 259 k/mm3 k/mm3 (150-375) (150-375) MPV 9.9 fl fl 10.2 fl fl (7.4-10.4) (7.4-10.4) Immature Gran % (Auto) 0.3 % % 0.7 % H % (0-0.5) (0-0.5) Neut % (Auto) 61.6 % % 52.0 % % (45.5-73.1) (45.5-73.1) Lymph % (Auto) 20.2 % % 29.7 % % (18.3-44.2) (18.3-44.2) [place] % (Auto) 12.5 % H % 12.2 % H % (2.6-8.5) (2.6-8.5) Eos % (Auto) 4.9 % H % 5.0 % H % (0-4.4) (0-4.4) Baso % (Auto) 0.5 % % 0.4 % % (0.2-1.2) (0.2-1.2) Lymph # (Auto) 1.85 K/mm3 K/mm3 2.44 K/mm3 K/mm3 (0.9-3.2) (0.9-3.2) [place] # (Auto) 1.1 K/mm3 H K/mm3 1.0 K/mm3 H K/mm3 (0.
--- NOTE | 2022-02-01 09:58 | WPDHPUPDATE1 ---
History and Physical Update Update Date/Time: 02/01/22 09:58 History and Physical has been reviewed, including an updated exam of the patient. There are NO changes in the patient's condition. Risks, benefits, and alternatives have been discussed and questions answered. Patient agrees to proceed with procedure.
[2022-02-01 09:59] LABS: Glucose Point of Care 82 mg/dl (65-105)
[2022-02-01] MEDS: ceFAZolin 2 GM/D5W 50 ML 2 GM/50 ML BAG IVPB (10:05)
[2022-02-01] MEDS: BUPIVACAINE/EPINEPHRINE 0.25% 50 ML VIAL INFILTRATE (10:39)
--- NOTE | 2022-02-01 11:55 | SUR.OPER ---
400mL clear yellow urine drained from romano bag at end of case
--- NOTE | 2022-02-01 11:56 | W.PM.PROC2 ---
Procedure Note - Detailed Date of Procedure 02/01/22 Pre-op Diagnosis acute cholecystitis Post-op Diagnosis Other ( acute gangrenous cholecystitis) Procedure Performed subtotal cholecystectomy, extensive lysis of adhesions of approximately 1 hour Surgeon Evelyn Cornelius MD Anesthesia General Indications 71-year-old male with multiple medical issues presenting with recurrent, acute cholecystitis. Patient had previous cholecystostomy tube placed that was accidentally dislodged by the patient. Findings acute gangrenous cholecystitis, gallbladder noted to be very friable and inflamed, unable to clearly identify elements of the triangle of [place] Description of Procedure The patient was taken to the operating room and placed in the supine position. After adequate induction of general anesthesia, the patient was prepped and draped in the normal sterile fashion. A time-out was then performed to verify the patient's identity as well as the procedure. I began by making a 5 mm incision in the infraumbilical region, through this a Veress needle was placed in the peritoneal cavity. CO2 gas was then insufflated. After adequate pneumoperitoneum was achieved, the Veress needle was removed and a 5 mm Optiview trocar was placed under direct visualization. I then placed the laparoscope through this port site and under direct visualization a further 12 mm subxiphoid port as well as 2 additional 5 mm ports were placed in the right after. There was noted to be large inflammatory mass in the right upper quadrant. There was a dense amount of omental adhesions and inflammation. Using very careful dissection both bluntly and with the Bovie cautery, was able to take down these omental adhesions. This lysis of adhesions took approximately 1 hour. The gallbladder itself was noted to be a very inflamed and friable. Upon grasping the gallbladder, there was noted to be areas of necrosis within the wall indicating gangrenous acute cholecystitis. I did decompress the gallbladder with an ovarian needle, however, not much output was noted. I used a grasper to grasp around the area of infundibulum. Using blunt dissection with the suction device, I tried to dissect around the area of the triangle of [place]. This area was also noted to be very friable and inflamed. The infundibulum was noted to be friable and iatrogenic cholecystostomies were noted during dissection. Given these findings, the decision was made to perform subtotal cholecystostomy. I was able to create a window at distal to the cholecystostomy in the infundibulum that was noted to be clearly still gallbladder. Once this window was created, I used a echelon stapler to come across this area. I then began the tedious task of taking the posterior gallbladder off the liver bed. This area was very necrotic and friable. Once the gallbladder specimen was freed, an Endo pouch was placed into the 12 mm port site and the specimen was removed. It will now be sent to pathology for further review. I then copiously irrigated the right upper quadrant, was able to know my staple line was completely intact and hemostatic. The liver bed was also noted to be hemostatic. At this point I left a JOSE DE JESUS drain in the right upper quadrant coming out through our most lateral 5 mm port. I then proceeded to close the 12 mm port site under direct visualization with a Berto cone an 0 Vicryl suture. The abdomen is then desufflated and all port sites were removed. All port sites were closed with 4-0 Monocryl subcuticular suture. Dermabond was placed on all wounds. The patient tolerated the procedure well and was extubated postop. He will be transferred to the recovery room in stable condition. Estimated Blood Loss 10 Drains Yes Packing No Pathology Yes Complications No immediate complications Condition Stable Disposition PACU [facility] Billing Surgery - Charge Forward: Surgery Billing
[2022-02-01] MEDS: fentaNYL CITRATE INJ (*CRX) 100 MCG/2 ML VIAL 25 MCG IV PUSH ×6 (12:45→13:41)
[2022-02-01 13:27] LABS: Glucose Point of Care 123 mg/dl (65-105)
[2022-02-01] MEDS: VENLAFAXINE HCL 75 MG TABLET 150 MG PO (14:21)
[2022-02-01] MEDS: HYDROcodone/acetaminophen (*CRX) 5-325 MG TABLET 1 TAB PO ×2 (14:21→20:22)
[2022-02-01] MEDS: PANTOPRAZOLE SODIUM IV 40 MG VIAL IV PUSH (14:21)
[2022-02-01] MEDS: ASPIRIN 81 MG CHEWABLE TABLET PO (14:22)
[2022-02-01] MEDS: KCL 40 MEQ/D5/0.9% SOD CHL 1,000 ML 100 ML IV CONT ×2 (14:23→20:23)
--- NOTE | 2022-02-01 15:45 | PM.IMPN ---
Progress Note: A&P Assessment and Plan (1) Status post cholecystectomy: Code(s): Z90.49 - Acquired absence of other specified parts of digestive tract Status: Acute Assessment and Plan: POD 0 CT of the abdomen pelvis showed moderate distention of the gallbladder, gallbladder wall thickening, possible cholelithiasis HIDA scan performed showed acute cholecystitis with no activity in the gallbladder General surgery consulted Diet advanced per surgery LFT stable and within normal limits Antiemetics on board Pain medications on board (2) Back pain: Code(s): M54.9 - Dorsalgia, unspecified Status: Acute Assessment and Plan: chronic in nature discontinue morphine sulfate. Continue [place] 5/325 p.o. q.6 hours p.r.n.. (3) Cholecystitis: Code(s): K81.9 - Cholecystitis, unspecified Status: Acute Assessment and Plan: History of acute cholecystitis status post cholecystectomy tube that was placed on 12/30/[address] of the abdomen pelvis showed moderate distention of the gallbladder, gallbladder wall thickening, possible cholelithiasis General surgery consulted Diet advanced per surgery, NPO for scheduled procedure HIDA scan performed showed acute cholecystitis with no activity in the gallbladder LFT stable and within normal limits Antiemetics on board Surgery planned for today Pain medications on board (4) Asymptomatic bacteriuria: Code(s): R82.71 - Bacteriuria Status: Resolved Assessment and Plan: CT indicated 2 large bladder stones and frequent UTIs Urology consulted Will plan for outpatient treatment Continue trend urine output (5) Hypertension: Code(s): I10 - Essential (primary) hypertension Status: Acute Assessment and Plan: Current blood pressure 122/80 Continue home metoprolol and losartan for now Trend blood pressure Adjust therapy as indicated (6) Bladder calculus: Code(s): N21.0 - Calculus in bladder Status: Acute Assessment and Plan: CT indicated 2 large bladder stones and frequent UTIs Urology consulted Will plan for outpatient treatment Continue trend urine output (7) Coronary artery disease: Qualifiers: Associated angina: without angina Coronary Disease-Associated Artery/Lesion type: [place] artery [place] vs. transplanted heart: [place] heart Qualified Code(s): I25.10 - Atherosclerotic heart disease of [place] coronary artery without angina pectoris Code(s): I25.10 - Atherosclerotic heart disease of [place] coronary artery without angina pectoris Status: Chronic Assessment and Plan: Continue aspirin Plavix on hold for possible procedure Plavix for stent placement Will resume plavix when ok'd by surgery (8) Dementia: Qualifiers: Dementia behavioral or psychological symptom: without behavioral, psychotic, or mood disturbance or anxiety Dementia severity: moderate Dementia type: unspecified type Qualified Code(s): F03.B0 - Unspecified dementia, moderate, without behavioral disturbance, psychotic disturbance, mood disturbance, and anxiety Code(s): F03.90 - Unspecified dementia, unspecified severity, without behavioral disturbance, psychotic disturbance, mood disturbance, and anxiety Status: Chronic Assessment and Plan: Continue home medications Trend mood Adjust therapy as indicated (9) Hypokalemia: Code(s): E87.6 - Hypokalemia Status: Acute Assessment and Plan: Potassium stable today at 4.7 Trend labs Replace as indicated Stable (10) Anemia: Qualifiers: Anemia type: unspecified type Qualified Code(s): D64.9 - Anemia, unspecified Code(s): D64.9 - Anemia, unspecified Status: Chronic Assessment and Plan: [place]
--- NOTE | 2022-02-01 15:45 | P.PNIM_ITS ---
Progress Note: A&P Assessment and Plan (1) Status post cholecystectomy: Code(s): Z90.49 - Acquired absence of other specified parts of digestive tract Status: Acute Assessment and Plan: * POD 0 * CT of the abdomen pelvis showed moderate distention of the gallbladder, gallbladder wall thickening, possible cholelithiasis * HIDA scan performed showed acute cholecystitis with no activity in the gallbladder * General surgery consulted * Diet advanced per surgery * LFT stable and within normal limits * Antiemetics on board * Pain medications on board (2) Back pain: Code(s): M54.9 - Dorsalgia, unspecified Status: Acute Assessment and Plan: * chronic in nature * discontinue morphine sulfate. * Continue [place] 5/325 p.o. q.6 hours p.r.n.. (3) Cholecystitis: Code(s): K81.9 - Cholecystitis, unspecified Status: Acute Assessment and Plan: * History of acute cholecystitis status post cholecystectomy tube that was placed on 12/30/2021 * removed by patient * CT of the abdomen pelvis showed moderate distention of the gallbladder, gallbladder wall thickening, possible cholelithiasis * General surgery consulted * Diet advanced per surgery, NPO for scheduled procedure * HIDA scan performed showed acute cholecystitis with no activity in the gallbladder * LFT stable and within normal limits * Antiemetics on board * Surgery planned for today * Pain medications on board (4) Asymptomatic bacteriuria: Code(s): R82.71 - Bacteriuria Status: Resolved Assessment and Plan: * CT indicated 2 large bladder stones and frequent UTIs * Urology consulted * Will plan for outpatient treatment * Continue trend urine output (5) Hypertension: Code(s): I10 - Essential (primary) hypertension Status: Acute Assessment and Plan: * Current blood pressure 122/80 * Continue home metoprolol and losartan for now * Trend blood pressure * Adjust therapy as indicated (6) Bladder calculus: Code(s): N21.0 - Calculus in bladder Status: Acute Assessment and Plan: * CT indicated 2 large bladder stones and frequent UTIs * Urology consulted * Will plan for outpatient treatment * Continue trend urine output (7) Coronary artery disease: Qualifiers: Associated angina: without angina Coronary Disease-Associated Artery/Lesion type: [place] artery [place] vs. transplanted heart: [place] heart Qualified Code(s): I25.10 - Atherosclerotic heart disease of [place] coronary artery without angina pectoris Code(s): I25.10 - Atherosclerotic heart disease of [place] coronary artery without angina pectoris Status: Chronic Assessment and Plan: * Continue aspirin * Plavix on hold for possible procedure * Plavix for stent placement * Will resume plavix when ok'd by surgery (8) Dementia: Qualifiers: Dementia behavioral or psychological symptom: without behavioral, psychotic, or mood disturbance or anxiety Dementia severity: moderate Dementia type: unspecified type Qualified Code(s): F03.B0 - Unspecified dementia, moderate, without behavioral disturbance, psychotic disturbance, mood disturbance, and anxiety Code(s): F03.90 - Unspecified dementia, unspecified severity, without behavioral disturbance, psychotic disturbanc
[2022-02-01] MEDS: MORPHINE SULFATE (*CRX) 2 MG/ML INJ 1 MG IV PUSH ×2 (16:40→20:22)
[2022-02-01] MEDS: FINASTERIDE 5 MG TABLET PO (20:22)
[2022-02-01] MEDS: TAMSULOSIN HCL 0.4 MG CAPSULE PO (20:22)
[2022-02-01] MEDS: AMOXICILLIN/CLAVULANATE K 875-125 MG TAB 1 TABLET PO (20:22)
[2022-02-02] VITALS (11 sets, daily range): BP systolic 100–135; BP diastolic 54–76; PULSE 101–125; RESP 17–22; TEMP 36.3–37.4; O2SAT 93–97
[2022-02-02] MEDS: MORPHINE SULFATE (*CRX) 2 MG/ML INJ 1 MG IV PUSH ×3 (00:36→17:21)
[2022-02-02] MEDS: KCL 40 MEQ/D5/0.9% SOD CHL 1,000 ML 100 ML IV CONT (05:13)
[2022-02-02 06:03] LABS: Alanine Aminotransferase 12 U/L (6-50); Albumin Level 3.2 g/dL (3.5-5.1); Alkaline Phosphatase 78 U/L (38-126); Anion Gap 15 mmol/L (8-16); Aspartate Amino Transferase 19 U/L (17-59); Bilirubin,Total 0.8 mg/dL (0.2-1.3); Blood Urea Nitrogen 4 mg/dL (9-20); Calcium 8.1 mg/dL (8.4-10.2); Carbon Dioxide 20 mmol/L (22-30); Chloride 101 mmol/L (98-107); Estimated CRCL calculation 105 ml/min; Estimated Glomerular Filt Rate > 60; Glucose 170 mg/dL (65-110); Magnesium 1.9 mg/dL (1.6-2.3); Potassium 4.3 mmol/L (3.4-5.0); Sodium 136 mmol/L (137-145)
[2022-02-02 06:24] LABS: Basophils Absolute Auto 0.1 K/mm3 (0.0-0.1); Basophils Percent Auto 0.2 % (0.2-1.2); Eosinophils Absolute Auto 0.1 K/mm3 (0-0.3); Eosinophils Percent Auto 0.3 % (0-4.4); Hematocrit 32.9 % (42.0-52.0); Hemoglobin 12.3 g/dL (14.0-18.0); Immature Granulocyte Absolute 0.12 K/mm3 (0.00-0.031); Immature Granulocyte Percent A 0.6 % (0-0.5); Lymphocytes Absolute Auto 0.92 K/mm3 (0.9-3.2); Lymphocytes Percent Auto 4.5 % (18.3-44.2); Mean Corpuscular HGB Conc 37.4 g/dl (32-36); Mean Corpuscular Hemoglobin 36.8 pg (26-34); Mean Corpuscular Volume 98.5 fl (80-100); Mean Platelet Volume 9.7 fl (7.4-10.4); Monocytes Absolute Auto 1.6 K/mm3 (0.1-0.6); Monocytes Percent Auto 7.8 % (2.6-8.5); Neutrophils Absolute Auto 17.8 K/mm3 (1.3-6.7); Neutrophils Percent Auto 86.6 % (45.5-73.1); Platelet Count Result 308 k/mm3 (150-375); Red Blood Count 3.34 M/mm3 (4.6-6.20); Red Cell Distribution Width 26.6 % (11.5-14.5); White Blood Count 20.6 K/mm3 (4.5-10.0)
[2022-02-02 07:12] LABS: Acanthocytes 1+ (NORMAL); Anisocytosis 1+ (NORMAL); Burr Cells 1+ (NORMAL); Platelet Estimate Adequate (Adequate)
[2022-02-02 07:24] LABS: Schistocytes None Seen (NORMAL)
[2022-02-02] MEDS: ONDANSETRON INJ 4 MG/2 ML VIAL IV PUSH (08:37)
--- NOTE | 2022-02-02 08:37 | PM.PNCARD ---
Progress Note: A&P Assessment and Plan (1) Preoperative cardiovascular examination: Code(s): Z01.810 - Encounter for preprocedural cardiovascular examination Status: Acute Assessment and Plan: Patient presents with recurrent cholecystitis, with plans for cholecystectomy. At this time he seems cardiovascularly stable with no evidence of ACS, angina, or heart failure. Last dose of clopidogrel was on the ; has been held since then. . Aspirin has been continued In general we prefer continuing dual anti-platelet therapy for 12 months after coronary stents, particularly if the stents were placed in this situation of acute coronary syndrome. On the other hand, the patient has had recurrent problems with cholecystitis, anorexia etc. Having 2 stents and in the setting of ACS increases his risk for stent thrombosis. On the good side of things the stents were large 3 mm stents, it has been more than 5 months since his event, and the newer stents have a lower risk of thrombosis. Overall his CV risk for the proposed surgery is moderate, but he is in optimal condition to proceed w/ surgery if cholecystectomy is deemed necessary. Resume clopidogrel NATHALIE when deemed safe by Dr. Cornelius. (2) Coronary artery disease: Qualifiers: Associated angina: without angina Coronary Disease-Associated Artery/Lesion type: [place] artery [place] vs. transplanted heart: [place] heart Qualified Code(s): I25.10 - Atherosclerotic heart disease of [place] coronary artery without angina pectoris Code(s): I25.10 - Atherosclerotic heart disease of [place] coronary artery without angina pectoris Status: Chronic Assessment and Plan: CAD, [place]? in July 2021 treated with two stents. 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 Now only mild by CT scan (4) Dementia: Qualifiers: Dementia behavioral or psychological symptom: without behavioral, psychotic, or mood disturbance or anxiety Dementia severity: moderate Dementia type: unspecified type Qualified Code(s): F03.B0 - Unspecified dementia, moderate, without behavioral disturbance, psychotic disturbance, mood disturbance, and anxiety Code(s): F03.90 - Unspecified dementia, unspecified severity, without behavioral disturbance, psychotic disturbance, mood disturbance, and anxiety Status: Chronic Assessment and Plan: Patient has dementia, poor mobility, and possibly some malnutrition which also increases his risk of surgery. Plan Cardiology will sign off please do not hesitate to call with any further questions. Subjective Date/time seen: 02/02/22 08:37 Cardiology follow up for CAD Not very alert this morning. Denies any chest pain but does report abdominal discomfort. He is tachycardic this morning but does not feel palpitations. Review of Systems Constitutional: Constitutional: Denies fever(s) Eyes: Eyes: Reports no additional eye complaints ENT: Denies epistaxis Cardiovascular: Cardiovascular: Denies chest pain, Denies pedal edema, Denies lightheadedness and Denies dyspnea Respiratory: Respiratory: Denies chest congestion and Denies dyspnea Gastrointestinal: Gastrointestinal: Denies abdominal pain, Denies hematochezia and Reports nausea Musculoskeletal: Musculoskeletal: Reports no additional musculoskeletal complaints and Reports myalgias (Sometimes legs hurt) Integumentary/Breasts: Skin/Breast: Reports system reviewed and no additional complaints, except as docu Neurologic: Reports system reviewed and no additional complaints, except as documented, Reports Abnormal speech present, Denies behavioral changes and Denies confusion Psychiatric: Psychiatric: Denies behavioral changes and Denies confusion Exam Alexis
--- NOTE | 2022-02-02 10:15 | P.PNIM_ITS ---
Progress Note: A&P Assessment and Plan (1) Status post cholecystectomy: Code(s): Z90.49 - Acquired absence of other specified parts of digestive tract Status: Acute Assessment and Plan: * POD 1 * CT of the abdomen pelvis showed moderate distention of the gallbladder, gallbladder wall thickening, possible cholelithiasis * HIDA scan performed showed acute cholecystitis with no activity in the gallbladder * General surgery consulted * Diet advanced per surgery * LFT stable and within normal limits * Antiemetics on board * Pain medications on board * Drain in place, drain in place draining bloody drainage, site appears well (2) Back pain: Code(s): M54.9 - Dorsalgia, unspecified Status: Acute Assessment and Plan: * chronic in nature * discontinue morphine sulfate. * Continue [place] 5/325 p.o. q.6 hours p.r.n.. (3) Cholecystitis: Code(s): K81.9 - Cholecystitis, unspecified Status: Acute Assessment and Plan: * History of acute cholecystitis status post cholecystectomy tube that was placed on 12/30/2021 * removed by patient * CT of the abdomen pelvis showed moderate distention of the gallbladder, g allbladder wall thickening, possible cholelithiasis * General surgery consulted * Diet advanced per surgery, NPO for scheduled procedure * HIDA scan performed showed acute cholecystitis with no activity in the gallbladder * LFT stable and within normal limits * Antiemetics on board * Surgical intervention on 02/01/22 * Pain medications on board Sirs are positive with leukocytosis, elevated HR, tachypnea, could be related to dehydration, LR bolus given, antibiotics broadened continue to trend and change therapy as indicated. (4) Asymptomatic bacteriuria: Code(s): R82.71 - Bacteriuria Status: Resolved Assessment and Plan: * CT indicated 2 large bladder stones and frequent UTIs * Urology consulted * Will plan for outpatient treatment * Continue trend urine output (5) Hypertension: Code(s): I10 - Essential (primary) hypertension Status: Acute Assessment and Plan: * Current blood pressure 106/76 * Continue home metoprolol * Hold losartan for now * Trend blood pressure * Adjust therapy as indicated (6) Bladder calculus: Code(s): N21.0 - Calculus in bladder Status: Acute Assessment and Plan: * CT indicated 2 large bladder stones and frequent UTIs * Urology consulted * Will plan for outpatient treatment * Continue trend urine output (7) Coronary artery disease: Qualifiers: Associated angina: without angina Coronary Disease-Associated Artery/Lesion type: [place] artery [place] vs. transplanted heart: [place] heart Qualified Code(s): I25.10 - Atherosclerotic heart disease of [place] coronary artery without angina pectoris Code(s): I25.10 - Atherosclerotic heart disease of [place] coronary artery without angina pectoris Status: Chronic Assessment and Plan: * Continue aspirin * Plavix resumed * Plavix for stent placement (8) Dementia: Qualifiers: Dementia behavioral or psychological symptom: without behavioral, psychotic, or mood disturbance or anxiety Dementia severity: moderate Dementia type: unspecified type Qualified Code(s): F03.B0 - Unspecified dementia, moderate,
--- NOTE | 2022-02-02 10:15 | PM.IMPN ---
Progress Note: A&P Assessment and Plan (1) Status post cholecystectomy: Code(s): Z90.49 - Acquired absence of other specified parts of digestive tract Status: Acute Assessment and Plan: POD 1 CT of the abdomen pelvis showed moderate distention of the gallbladder, gallbladder wall thickening, possible cholelithiasis HIDA scan performed showed acute cholecystitis with no activity in the gallbladder General surgery consulted Diet advanced per surgery LFT stable and within normal limits Antiemetics on board Pain medications on board Drain in place, drain in place draining bloody drainage, site appears well (2) Back pain: Code(s): M54.9 - Dorsalgia, unspecified Status: Acute Assessment and Plan: chronic in nature discontinue morphine sulfate. Continue [place] 5/325 p.o. q.6 hours p.r.n.. (3) Cholecystitis: Code(s): K81.9 - Cholecystitis, unspecified Status: Acute Assessment and Plan: History of acute cholecystitis status post cholecystectomy tube that was placed on 12/30/[address] of the abdomen pelvis showed moderate distention of the gallbladder, gallbladder wall thickening, possible cholelithiasis General surgery consulted Diet advanced per surgery, NPO for scheduled procedure HIDA scan performed showed acute cholecystitis with no activity in the gallbladder LFT stable and within normal limits Antiemetics on board Surgical intervention on 02/01/22 Pain medications on board Sirs are positive with leukocytosis, elevated HR, tachypnea, could be related to dehydration, LR bolus given, antibiotics broadened continue to trend and change therapy as indicated. (4) Asymptomatic bacteriuria: Code(s): R82.71 - Bacteriuria Status: Resolved Assessment and Plan: CT indicated 2 large bladder stones and frequent UTIs Urology consulted Will plan for outpatient treatment Continue trend urine output (5) Hypertension: Code(s): I10 - Essential (primary) hypertension Status: Acute Assessment and Plan: Current blood pressure 106/76 Continue home metoprolol Hold losartan for now Trend blood pressure Adjust therapy as indicated (6) Bladder calculus: Code(s): N21.0 - Calculus in bladder Status: Acute Assessment and Plan: CT indicated 2 large bladder stones and frequent UTIs Urology consulted Will plan for outpatient treatment Continue trend urine output (7) Coronary artery disease: Qualifiers: Associated angina: without angina Coronary Disease-Associated Artery/Lesion type: [place] artery [place] vs. transplanted heart: [place] heart Qualified Code(s): I25.10 - Atherosclerotic heart disease of [place] coronary artery without angina pectoris Code(s): I25.10 - Atherosclerotic heart disease of [place] coronary artery without angina pectoris Status: Chronic Assessment and Plan: Continue aspirin Plavix resumed Plavix for stent placement (8) Dementia: Qualifiers: Dementia behavioral or psychological symptom: without behavioral, psychotic, or mood disturbance or anxiety Dementia severity: moderate Dementia type: unspecified type Qualified Code(s): F03.B0 - Unspecified dementia, moderate, without behavioral disturbance, psychotic disturbance, mood disturbance, and anxiety Code(s): F03.90 - Unspecified dementia, unspecified severity, without behavioral disturbance, psychotic disturbance, mood disturbance, and anxiety Status: Chronic Assessment and Plan: Continue home medications Trend mood Adjust therapy as indicated (9) Hypokalemia: Code(s): E87.6 - Hypokalemia Status: Acute Assessment and Plan: Potassium stable today at 4.3 Seems resolved Trend labs Replace as indicated Stable (
[2022-02-02 11:04] LABS: Lactic Acid Reflex 4.2 mmol/L (0.7-2.0)
[2022-02-02] MEDS: LACTATED RINGERS 1,000 ML 999 ML IV CONT ×2 (11:21→15:36)
[2022-02-02] MEDS: METOPROLOL TARTRATE INJ 5 MG/5 ML VIAL 2.5 MG IV PUSH ×2 (11:43→17:21)
[2022-02-02] MEDS: PANTOPRAZOLE SODIUM IV 40 MG VIAL IV PUSH (11:44)
--- NOTE | 2022-02-02 11:46 | PM.PNGS ---
Progress Note: A&P Assessment and Plan (1) Status post cholecystectomy: Code(s): Z90.49 - Acquired absence of other specified parts of digestive tract Status: Acute Assessment and Plan: s/p subtotal cholecystectomy, cont drain, start Zosyn, will get CT for further eval (2) Sepsis: Code(s): A41.9 - Sepsis, unspecified organism Status: Acute Assessment and Plan: see above, Zosyn, CT for further eval Subjective Subjective Date/Time Seen: 02/02/22 11:46 more lethargic today, confused Review of Systems Review of Systems: ROS unobtainable: Yes unobtainable due to mental status Exam Const: General: ill appearing and lethargic Resp: Auscultation: diminished lung sounds Cardio: Rate: tachycardic Rhythm: regular rhythm GI: Inspection: normal to inspection, distended and incision GI Palp: Yes abdominal tenderness, Yes Soft to palpation, Yes Tenderness to palpation present (GI), No Guarding due to palpation present (GI) and No Rigid due to palpation Other: JOSE DE JESUS c bloody, ?bilious output Objective Data Vital Signs Vital Signs: Vital Signs - 24 hr 02/01/22 11:53 02/01/22 12:05 02/01/22 12:20 Temperature 36.2 C L Pulse Rate 87 81 82 Respiratory Rate 22 H 22 H 15 Blood Pressure 110/67 90/53 L 94/58 L Pulse Oximetry 99 100 100 Oxygen Delivery Simple Face Mask Simple Face Mask Simple Face Mask Oxygen Flow Rate 10 10 10 02/01/22 12:35 02/01/22 12:50 02/01/22 13:05 Temperature Pulse Rate 83 84 77 Respiratory Rate 23 H 20 12 Blood Pressure 106/59 L 104/64 116/68 Pulse Oximetry 95 98 100 Oxygen Delivery Room Air Nasal Cannula Nasal Cannula Oxygen Flow Rate 2 2 02/01/22 13:20 02/01/22 13:35 02/01/22 13:50 Temperature Pulse Rate 77 80 86 Respiratory Rate 14 12 12 Blood Pressure 120/66 120/65 122/80 Pulse Oximetry 100 98 100 Oxygen Delivery Nasal Cannula Nasal Cannula Nasal Cannula Oxygen Flow Rate 1 1 1 02/01/22 14:22 02/01/22 14:44 02/01/22 15:14 Temperature 36.4 C L 36.5 C 36.3 C L Pulse Rate 89 85 90 Respiratory Rate 12 14 14 Blood Pressure 146/88 H 145/84 H 134/92 H Pulse Oximetry 100 100 100 Oxygen Delivery Oxygen Flow Rate 02/01/22 16:14 02/01/22 16:00 02/01/22 20:22 Temperature 36.4 C L Pulse Rate 92 91 99 Respiratory Rate 14 Blood Pressure 134/78 Pulse Oximetry 100 Oxygen Delivery Oxygen Flow Rate 02/01/22 20:00 02/01/22 21:47 02/01/22 20:00 Temperature 36.4 C Pulse Rate 103 H 100 Respiratory Rate 16 Blood Pressure 127/73 Pulse Oximetry 99 Oxygen Delivery Room Air Oxygen Flow Rate 02/02/22 00:00 02/02/22 04:00 02/02/22 06:25 Temperature 36.4 C Pulse Rate 107 H 121 H 101 H Respiratory Rate 18 Blood Pressure 106/76 Pulse Oximetry 97 Oxygen Delivery Oxygen Flow Rate 02/02/22 08:00 02/02/22 09:35 Temperature 36.6 C Pulse Rate 125 H Respiratory Rate 22 H Blood Pressure 120/72 Pulse Oximetry 96 Oxygen Delivery Room Air Oxygen Flow Rate Intake/Output Intake/Output: Intake & Output 01/30/22 01/31/22 02/01/22 02/02/22 23:59 23:59 23:59 23:59 Intake Total 2575 2000 3061 1050 Output Total 6709 4427 1000 780 [facility] [phone] 270 Meds/Results Medications: Active Medications Generic Name Dose Route Start Last Admin Trade Name Freq PRN Reason Stop Dose Admin Acetaminophen 650 mg 01/23/22 23:48 Acetaminophen 325 Mg Tablet PO Q6H PRN Pain Rated 1-3 Hydrocodone Bitart/Acetaminophen 1 tab 01/29/22 09:05 02/01/22 20:22 Hydrocodone/Acetaminophen (*Crx) 5-325 Mg Tablet PO 1 tab Q6H PRN Administration Pain Rated 4-6 Aspirin 81 mg 01/24/22 09:00 02/02/22 11:29 Aspirin 81 Mg Chewable Tablet PO Not Given DAILY MYA Atorvastatin Calcium 80 mg 01/24/22 21:00 01/25/22 20:44 Atorvastatin 40 Mg Tablet PO 80 mg HS MYA Administration Bisacodyl 10 mg 01/27/22 12:05 Bisacodyl 10 Mg Suppository R
--- NOTE | 2022-02-02 13:02 | PCNFU ---
Nutrition Follow-Up Complete: Inadequate energy intake related to nausea as evidenced by pt report and charted intake of meal refusals Goal: PO intake 50% of meals with tolerance Patient has limited progress towards goal. We will continue current goal. Pt current nutrition is Clear Liquids. Last recorded weight is 96.6 kg-no new weight to report. Bowel Motility: +Bm reported 02/01 Labs Reviewed:Glu 170, Cr 0.6,BUN 4, Alb 3.2, Na 136, Hgb 12.3, Hct 12.3 Meds Noted:Zofran,Lovenox, Morphine Sulfate Skin: WNL Additional Notes: Patient remains on clear liquids. Limited intake due to nausea/vomiting per nursing. 02/01-acute cholecystitis. Patient is also receiving Ensure Clear TID providing an additional 240 kcals and 8 gms protein. Recommend advancing diet as tolerated per MD orders. Monitor intake, wt, labs every 3 days.
--- NOTE | 2022-02-02 13:14 | PC.NURSE ---
On 02/02/22, the student, [Michell Cuba], provided care and completed [facility] documentation on this patient. I have reviewed the student's documentation and agree with the findings.
[2022-02-02 13:42] LABS: Reflex Lactic Acid Yes or No Add Lactic
--- NOTE | 2022-02-02 14:42 | WPDANESPN ---
Anes - Prog Note Post-Op Date/Time: 02/02/22 14:42 Cardiovascular status: other (Tachycardic) Respiratory status: other (Tachypnic) Airway patency: baseline Mental status: baseline Post-Op hydration status: other (Pale appearance) Vital Signs: Last Vital Signs Temp 36.6 C 02/02/22 09:35 Pulse 125 H 02/02/22 09:35 Resp 22 H 02/02/22 09:35 BP 120/72 02/02/22 09:35 Pulse Ox 96 02/02/22 09:35 O2 Del Method Room Air 02/02/22 08:00 O2 Flow Rate 1 02/01/22 13:50 Pain Score (VAS): 08/08 I/O: Intake & Output 02/01/22 02/02/22 02/02/22 23:59 07:59 15:59 Intake Total 1000 1050 2000 Output Total 250 780 70 Balance 526 181 1419 Laboratory Tests 02/02/22 05:28 02/02/22 05:28 02/02/22 02/02/22 02/02/22 05:28 05:28 10:39 WBC 20.6 H RBC 3.34 L Hgb 12.3 L Hct 32.9 L MCV 98.5 MCH 36.8 H D MCHC 37.4 H RDW 26.6 H Plt Count 308 MPV 9.7 Immature Gran % (Auto) 0.6 H Neut % (Auto) 86.6 H Lymph % (Auto) 4.5 L [place] % (Auto) 7.8 Eos % (Auto) 0.3 Baso % (Auto) 0.2 Lymph # (Auto) 0.92 [place] # (Auto) 1.6 H Eos # (Auto) 0.1 Baso # (Auto) 0.1 Abs Immat Gran (auto) 0.12 H Absolute Neuts (auto) 17.8 H Absolute Nucleated RBC 0.0 Nucleated RBC % 0.0 Platelet Estimate Adequate Anisocytosis 1+ [place] Cells 1+ Acanthocytes (Spur) 1+ Schistocytes None seen Sodium 136 L Potassium 4.3 Chloride 101 Carbon Dioxide 20 L Anion Gap 15 BUN 4 L Creatinine 0.60 L Estim Creat Clear Calc 105 Estimated GFR > 60 Glucose 170 H Lactic Acid 4.2 H* Calcium 8.1 L Magnesium 1.9 Total Bilirubin 0.8 AST 19 ALT 12 Alkaline Phosphatase 78 Total Protein 6.0 L Albumin 3.2 L 02/02/22 14:35 WBC RBC Hgb Hct MCV MCH MCHC RDW Plt Count MPV Immature Gran % (Auto) Neut % (Auto) Lymph % (Auto) [place] % (Auto) Eos % (Auto) Baso % (Auto) Lymph # (Auto) [place] # (Auto) Eos # (Auto) Baso # (Auto) Abs Immat Gran (auto) Absolute Neuts (auto) Absolute Nucleated RBC Nucleated RBC % Platelet Estimate Anisocytosis [place] Cells Acanthocytes (Spur) Schistocytes Sodium Potassium Chloride Carbon Dioxide Anion Gap BUN Creatinine Estim Creat Clear Calc Estimated GFR Glucose Lactic Acid Pending Calcium Magnesium Total Bilirubin AST ALT Alkaline Phosphatase Total Protein Albumin Post-procedural complaints: none Patient Feedback: Patient satisfied with anesthetic care. Other Findings: Cecy LEA at bedside with ultrasound drawing blood
[2022-02-02 15:10] LABS: Lactic Acid 4.9 mmol/L (0.7-2.0)
[2022-02-02] MEDS: LACTATED RINGERS 1,000 ML 100 ML IV CONT (17:13)
[2022-02-02 18:44] LABS: Alanine Aminotransferase 22 U/L (6-50); Albumin Level 2.7 g/dL (3.5-5.1); Alkaline Phosphatase 65 U/L (38-126); Anion Gap 11 mmol/L (8-16); Aspartate Amino Transferase 20 U/L (17-59); Bilirubin,Total 0.8 mg/dL (0.2-1.3); Blood Urea Nitrogen 6 mg/dL (9-20); Calcium 8.1 mg/dL (8.4-10.2); Carbon Dioxide 18 mmol/L (22-30); Chloride 104 mmol/L (98-107); Estimated CRCL calculation 124 ml/min; Estimated Glomerular Filt Rate > 60; Glucose 112 mg/dL (65-110); Potassium 4.2 mmol/L (3.4-5.0); Sodium 133 mmol/L (137-145)
[2022-02-02 22:30] LABS: Lactic Acid Reflex 3.4 mmol/L (0.7-2.0)
[2022-02-02 23:05] LABS: Hematocrit 27.3 % (42.0-52.0); Hemoglobin 10.2 g/dL (14.0-18.0); Mean Corpuscular HGB Conc 37.4 g/dl (32-36); Mean Corpuscular Hemoglobin 36.4 pg (26-34); Mean Corpuscular Volume 97.5 fl (80-100); Mean Platelet Volume 10.2 fl (7.4-10.4); Platelet Count Result 269 k/mm3 (150-375); Red Cell Distribution Width 26.2 % (11.5-14.5); White Blood Count 27.5 K/mm3 (4.5-10.0)
[2022-02-03] VITALS (14 sets, daily range): BP systolic 121–148; BP diastolic 73–84; PULSE 93–115; RESP 16–20; TEMP 36.7–36.9; O2SAT 93–97
[2022-02-03] MEDS: ONDANSETRON INJ 4 MG/2 ML VIAL IV PUSH ×4 (01:50→20:34)
[2022-02-03] MEDS: METOPROLOL TARTRATE INJ 5 MG/5 ML VIAL 2.5 MG IV PUSH ×5 (01:51→23:26)
[2022-02-03] MEDS: MORPHINE SULFATE (*CRX) 2 MG/ML INJ 1 MG IV PUSH ×2 (03:17→13:57)
[2022-02-03] MEDS: LACTATED RINGERS 1,000 ML 100 ML IV CONT ×3 (03:20→23:24)
[2022-02-03 06:03] LABS: Lactic Acid Reflex 3.4 mmol/L (0.7-2.0)
[2022-02-03 06:06] LABS: Alanine Aminotransferase 12 U/L (6-50); Albumin Level 2.8 g/dL (3.5-5.1); Alkaline Phosphatase 85 U/L (38-126); Anion Gap 15 mmol/L (8-16); Aspartate Amino Transferase 15 U/L (17-59); Bilirubin,Total 0.8 mg/dL (0.2-1.3); Blood Urea Nitrogen 7 mg/dL (9-20); Calcium 8.2 mg/dL (8.4-10.2); Carbon Dioxide 22 mmol/L (22-30); Chloride 100 mmol/L (98-107); Estimated CRCL calculation 105 ml/min; Estimated Glomerular Filt Rate > 60; Glucose 101 mg/dL (65-110); Magnesium 1.6 mg/dL (1.6-2.3); Potassium 3.6 mmol/L (3.4-5.0); Sodium 137 mmol/L (137-145)
[2022-02-03 08:32] LABS: Basophils Absolute Auto 0.1 K/mm3 (0.0-0.1); Basophils Percent Auto 0.2 % (0.2-1.2); Hematocrit 34.4 % (42.0-52.0); Hemoglobin 10.5 g/dL (14.0-18.0); Immature Granulocyte Absolute 0.48 K/mm3 (0.00-0.031); Immature Granulocyte Percent A 1.6 % (0-0.5); Lymphocytes Absolute Auto 1.84 K/mm3 (0.9-3.2); Lymphocytes Percent Auto 6.1 % (18.3-44.2); Mean Corpuscular HGB Conc 30.5 g/dl (32-36); Mean Corpuscular Hemoglobin 27.7 pg (26-34); Mean Corpuscular Volume 90.8 fl (80-100); Mean Platelet Volume 11.4 fl (7.4-10.4); Monocytes Absolute Auto 2.1 K/mm3 (0.1-0.6); Neutrophils Absolute Auto 25.9 K/mm3 (1.3-6.7); Neutrophils Percent Auto 85.1 % (45.5-73.1); Platelet Count Result 201 k/mm3 (150-375); Red Blood Count 3.79 M/mm3 (4.6-6.20); Red Cell Distribution Width 20.4 % (11.5-14.5); White Blood Count 30.4 K/mm3 (4.5-10.0)
[2022-02-03 08:46] LABS: Reflex Lactic Acid Yes or No Add Lactic
[2022-02-03 09:11] LABS: Lactic Acid 2.8 mmol/L (0.7-2.0)
--- NOTE | 2022-02-03 10:11 | P.PNIM_ITS ---
Progress Note: A&P Assessment and Plan (1) Status post cholecystectomy: Code(s): Z90.49 - Acquired absence of other specified parts of digestive tract Status: Acute Assessment and Plan: * POD 2 * CT of the abdomen pelvis showed moderate distention of the gallbladder, gallbladder wall thickening, possible cholelithiasis * HIDA scan performed showed acute cholecystitis with no activity in the gallbladder * General surgery consulted * Diet advanced per surgery * LFT stable and within normal limits * Antiemetics on board * Pain medications on board * Drain in place, drain in place draining bloody drainage, site appears well (2) Cholecystitis: Code(s): K81.9 - Cholecystitis, unspecified Status: Acute Assessment and Plan: * History of acute cholecystitis status post cholecystectomy tube that was placed on 12/30/2021 * removed by patient * CT of the abdomen pelvis showed moderate distention of the gallbladder, gallbladder wall thickening, possible cholelithiasis * General surgery consulted * Diet advanced per surgery, NPO for scheduled procedure * HIDA scan performed showed acute cholecystitis with no activity in the gallbladder * LFT stable and within normal limits * Antiemetics on board * Surgical intervention on 02/01/22 * Pain medications on board (3) Sepsis: Code(s): A41.9 - Sepsis, unspecified organism Status: Acute Assessment and Plan: * Sirs are positive with leukocytosis, elevated HR, tachypnea * LR bolus given * antibiotics broadened to Zosyn * Blood cultures pending * urine culture * WBC continues to rise currently 30.4 * continue to trend labs * change therapy as indicated. (4) Anemia: Qualifiers: Anemia type: unspecified type Qualified Code(s): D64.9 - Anemia, unspecified Code(s): D64.9 - Anemia, unspecified Status: Chronic Assessment and Plan: * Current H&H 10.5/34.4 * Anemia labs stable at this time * Supplement as indicated * Trend H&H * Transfuse if hemoglobin less than 7 (5) Hypokalemia: Code(s): E87.6 - Hypokalemia Status: Acute Assessment and Plan: * Potassium stable today at 3.6 * Seems resolved * Trend labs * Replace as indicated * Stable (6) Asymptomatic bacteriuria: Code(s): R82.71 - Bacteriuria Status: Resolved Assessment and Plan: * CT indicated 2 large bladder stones and frequent UTIs * Urology consulted * Will plan for outpatient treatment * Continue trend urine output (7) Hypertension: Code(s): I10 - Essential (primary) hypertension Status: Acute Assessment and Plan: * Current blood pressure 106/76 * Continue home metoprolol * Hold losartan for now * Trend blood pressure * Adjust therapy as indicated (8) Bladder calculus: Code(s): N21.0 - Calculus in bladder Status: Acute Assessment and Plan: * CT indicated 2 large bladder stones and frequent UTIs * Urology consulted * Will plan for outpatient treatment * Continue trend urine output (9) Coronary artery disease: Qualifiers: Associated angina: without angina Coronary Disease-Associated [place]/Lesion type: [place] artery [place] vs. transplanted heart: fam
--- NOTE | 2022-02-03 10:11 | PM.IMPN ---
Progress Note: A&P Assessment and Plan (1) Status post cholecystectomy: Code(s): Z90.49 - Acquired absence of other specified parts of digestive tract Status: Acute Assessment and Plan: POD 2 CT of the abdomen pelvis showed moderate distention of the gallbladder, gallbladder wall thickening, possible cholelithiasis HIDA scan performed showed acute cholecystitis with no activity in the gallbladder General surgery consulted Diet advanced per surgery LFT stable and within normal limits Antiemetics on board Pain medications on board Drain in place, drain in place draining bloody drainage, site appears well (2) Cholecystitis: Code(s): K81.9 - Cholecystitis, unspecified Status: Acute Assessment and Plan: History of acute cholecystitis status post cholecystectomy tube that was placed on 12/30/[address] of the abdomen pelvis showed moderate distention of the gallbladder, gallbladder wall thickening, possible cholelithiasis General surgery consulted Diet advanced per surgery, NPO for scheduled procedure HIDA scan performed showed acute cholecystitis with no activity in the gallbladder LFT stable and within normal limits Antiemetics on board Surgical intervention on 02/01/22 Pain medications on board (3) Sepsis: Code(s): A41.9 - Sepsis, unspecified organism Status: Acute Assessment and Plan: Sirs are positive with leukocytosis, elevated HR, tachypnea LR bolus given antibiotics broadened to Zosyn Blood cultures pending urine culture WBC continues to rise currently 30.4 continue to trend labs change therapy as indicated. (4) Anemia: Qualifiers: Anemia type: unspecified type Qualified Code(s): D64.9 - Anemia, unspecified Code(s): D64.9 - Anemia, unspecified Status: Chronic Assessment and Plan: Current H&H 10.5/34.4 Anemia labs stable at this time Supplement as indicated Trend H&H Transfuse if hemoglobin less than 7 (5) Hypokalemia: Code(s): E87.6 - Hypokalemia Status: Acute Assessment and Plan: Potassium stable today at 3.6 Seems resolved Trend labs Replace as indicated Stable (6) Asymptomatic bacteriuria: Code(s): R82.71 - Bacteriuria Status: Resolved Assessment and Plan: CT indicated 2 large bladder stones and frequent UTIs Urology consulted Will plan for outpatient treatment Continue trend urine output (7) Hypertension: Code(s): I10 - Essential (primary) hypertension Status: Acute Assessment and Plan: Current blood pressure 106/76 Continue home metoprolol Hold losartan for now Trend blood pressure Adjust therapy as indicated (8) Bladder calculus: Code(s): N21.0 - Calculus in bladder Status: Acute Assessment and Plan: CT indicated 2 large bladder stones and frequent UTIs Urology consulted Will plan for outpatient treatment Continue trend urine output (9) Coronary artery disease: Qualifiers: Associated angina: without angina Coronary Disease-Associated Artery/Lesion type: [place] artery [place] vs. transplanted heart: [place] heart Qualified Code(s): I25.10 - Atherosclerotic heart disease of [place] coronary artery without angina pectoris Code(s): I25.10 - Atherosclerotic heart disease of [place] coronary artery without angina pectoris Status: Chronic Assessment and Plan: Continue aspirin Plavix resumed Plavix for stent placement (10) Dementia: Qualifiers: Dementia behavioral or psychological symptom: without behavioral, psychotic, or mood disturbance or anxiety Dementia severity: moderate Dementia type: unspecified type Qualified Code(s): F03.B0 - Unspecified dementia, moderate, without behavioral disturbance, psychotic
[2022-02-03] MEDS: PANTOPRAZOLE SODIUM IV 40 MG VIAL IV PUSH (10:38)
--- NOTE | 2022-02-03 12:35 | PM.PNGS ---
Progress Note: A&P Assessment and Plan (1) Cholecystitis: Code(s): K81.9 - Cholecystitis, unspecified Status: Acute Assessment and Plan: Pathology shows gangrenous acute cholecystitis. Patient seems to be holding his own if not improving. Lactate is improved. White blood cell count elevated a little more to 30,000. HIDA scan was negative. CT scan yesterday showed hematoma. Continue Zosyn antibiotics and JOSE [place] JESUS drain. On clear liquids but eating a little. Continue to follow closely. (2) Status post cholecystectomy: Code(s): Z90.49 - Acquired absence of other specified parts of digestive tract Status: Acute Assessment and Plan: As above. (3) Coronary artery disease: Qualifiers: Coronary Disease-Associated Artery/Lesion type: [place] artery [place] vs. transplanted heart: [place] heart Associated angina: without angina Qualified Code(s): I25.10 - Atherosclerotic heart disease of [place] coronary artery without angina pectoris Code(s): I25.10 - Atherosclerotic heart disease of [place] coronary artery without angina pectoris Status: Chronic Assessment and Plan: Tachycardic but no evidence of acute coronary event. Continue to hold clopidogrel gel for now (4) Dementia: Qualifiers: Dementia type: unspecified type Dementia severity: moderate Dementia behavioral or psychological symptom: without behavioral, psychotic, or mood disturbance or anxiety Qualified Code(s): F03.B0 - Unspecified dementia, moderate, without behavioral disturbance, psychotic disturbance, mood disturbance, and anxiety Code(s): F03.90 - Unspecified dementia, unspecified severity, without behavioral disturbance, psychotic disturbance, mood disturbance, and anxiety Status: Chronic Assessment and Plan: Patient known to have dementia. This is the 1st time I have seen him. He is not really able to verbalize at all now. Mental status may be slightly worsened by his current surgery and condition. Subjective Subjective Date/Time Seen: 02/03/22 12:35 Post Op day: 2 Patient reports: afebrile and other (Awake and attends to examiner but not able to verbalize) Review of Systems Review of Systems: ROS unobtainable: Yes unobtainable due to mental status Exam Const: General: comfortable, no acute distress, alert, awake, confusion (Not able to verbalize, could be aphasia) and well nourished GI: Inspection: incision (Dry and healing), obesity and other (JOSE [place] JESUS fluid mostly serosanguineous with slight bile tinge) GI Palp: Yes Soft to palpation and Yes Tenderness to palpation present (GI) Auscultation: Hypoactive bowel sounds present Objective Data Vital Signs Vital Signs: Vital Signs - 24 hr 02/02/22 14:39 02/02/22 18:57 02/02/22 16:00 Temperature 37.4 C 36.3 C L Pulse Rate 122 H 120 H 122 H Respiratory Rate 17 18 Blood Pressure 135/67 100/59 L Pulse Oximetry 96 93 Oxygen Delivery 02/02/22 20:06 02/02/22 20:00 02/02/22 20:00 Temperature 36.9 C Pulse Rate 117 H 117 H 115 H Respiratory Rate 20 20 Blood Pressure 111/54 L Pulse Oximetry 94 94 Oxygen Delivery Room Air 02/03/22 00:00 02/03/22 01:51 02/03/22 02:43 Temperature 36.9 C Pulse Rate 113 H 115 H 112 H Respiratory Rate 18 Blood Pressure 121/77 Pulse Oximetry 93 Oxygen Delivery 02/03/22 04:00 02/03/22 08:00 02/03/22 08:00 Temperature Pulse Rate 115 H 96 Respiratory Rate Blood Pressure Pulse Oximetry Oxygen Delivery Room Air 02/03/22 12:03 02/03/22 12:07 02/03/22 12:00 Temperature Pulse Rate 106 H 112 H Respiratory Rate Blood Pressure 147/76 H Pulse Oximetry Oxygen Delivery tachycardic but vital signs otherwise stable Intake/Output Intake/Output: Intake & Output 01/31/22 02/01/22 02/02/22 02/03/22 23:59 23:59 23:59 23:59 Intake Total 1999 3061 4150 1220 Output Total 4425 1000 1400 310 Balance -9435 7744 5852 614
[2022-02-03 14:27] LABS: Appearance Urine Clear (Clear); Bilirubin Urine Negative (Negative); Blood Urine Negative (Negative); Color Urine Yellow (Yellow); Glucose Urine UA Negative (Negative); Ketones Urine Trace mg/dL (Negative); Leukocyte Esterase Ur 1+ LEU/UL (Negative); Nitrate Urine Negative (Negative); Protein Urine Negative (Negative); Specific Grav Ur 1.025 (1.001-1.035); Urobilinogen Urine 0.2 mg/dL (<2.0); pH Urine 5.5 (5.0-9.0)
[2022-02-03 14:41] LABS: Mucus Urine Rare /lpf; WBC Urine 21-30 /hpf
[2022-02-03 14:43] LABS: Add Urine Microscopic? YES
--- NOTE | 2022-02-03 18:09 | PC.NURSE ---
Pt. refusing to eat or drink. Pt. offered all meals and throughout the day. Currently on clear liquid diet.
[2022-02-03] MEDS: ATORVASTATIN 40 MG TABLET 80 MG PO (20:27)
[2022-02-04] VITALS (10 sets, daily range): BP systolic 139–147; BP diastolic 71–81; PULSE 76–105; RESP 16–18; TEMP 36.1–36.7; O2SAT 93–98
[2022-02-04] MEDS: METOPROLOL TARTRATE INJ 5 MG/5 ML VIAL 2.5 MG IV PUSH (05:17)
[2022-02-04 06:48] LABS: Alanine Aminotransferase 9 U/L (6-50); Albumin Level 2.5 g/dL (3.5-5.1); Alkaline Phosphatase 83 U/L (38-126); Anion Gap 12 mmol/L (8-16); Aspartate Amino Transferase 16 U/L (17-59); Bilirubin,Total 0.8 mg/dL (0.2-1.3); Blood Urea Nitrogen 9 mg/dL (9-20); Calcium 7.8 mg/dL (8.4-10.2); Carbon Dioxide 24 mmol/L (22-30); Chloride 99 mmol/L (98-107); Estimated CRCL calculation 105 ml/min; Estimated Glomerular Filt Rate > 60; Glucose 94 mg/dL (65-110); Magnesium 1.6 mg/dL (1.6-2.3); Potassium 2.7 mmol/L (3.4-5.0); Sodium 135 mmol/L (137-145)
[2022-02-04 07:29] LABS: Basophils Percent Auto 0.1 % (0.2-1.2); Eosinophils Percent Auto 0.1 % (0-4.4); Hematocrit 27.8 % (42.0-52.0); Hemoglobin 8.8 g/dL (14.0-18.0); Immature Granulocyte Absolute 0.21 K/mm3 (0.00-0.031); Immature Granulocyte Percent A 1.1 % (0-0.5); Lymphocytes Absolute Auto 1.53 K/mm3 (0.9-3.2); Mean Corpuscular HGB Conc 31.7 g/dl (32-36); Mean Corpuscular Hemoglobin 26.9 pg (26-34); Mean Platelet Volume 10.1 fl (7.4-10.4); Monocytes Absolute Auto 1.3 K/mm3 (0.1-0.6); Monocytes Percent Auto 6.6 % (2.6-8.5); Neutrophils Percent Auto 84.1 % (45.5-73.1); Platelet Count Result 185 k/mm3 (150-375); Red Blood Count 3.27 M/mm3 (4.6-6.20); Red Cell Distribution Width 20.4 % (11.5-14.5); White Blood Count 19.1 K/mm3 (4.5-10.0)
[2022-02-04] MEDS: POTASSIUM CHLORIDE INJ 40 MEQ in SODIUM CHLORIDE 0.9% IV 500 ML 130 MEQ IVPB (08:18)
[2022-02-04] MEDS: MAGNESIUM SULF 4 GM/WATER100ML 4 GM/100 ML BAG IVPB (08:21)
[2022-02-04] MEDS: PANTOPRAZOLE SODIUM IV 40 MG VIAL IV PUSH (09:44)
--- NOTE | 2022-02-04 10:30 | PM.IMPN ---
Progress Note: A&P Assessment and Plan (1) Status post cholecystectomy: Code(s): Z90.49 - Acquired absence of other specified parts of digestive tract Status: Acute Assessment and Plan: POD 3 CT of the abdomen pelvis showed moderate distention of the gallbladder, gallbladder wall thickening, possible cholelithiasis HIDA scan performed showed acute cholecystitis with no activity in the gallbladder General surgery consulted Diet advanced per surgery LFT stable and within normal limits Antiemetics on board Pain medications on board Drain in place, drain in place draining bloody drainage, site appears well (2) Cholecystitis: Code(s): K81.9 - Cholecystitis, unspecified Status: Acute Assessment and Plan: History of acute cholecystitis status post cholecystectomy tube that was placed on 12/30/[address] of the abdomen pelvis showed moderate distention of the gallbladder, gallbladder wall thickening, possible cholelithiasis General surgery consulted Diet advanced as tolerated per surgery HIDA scan performed showed acute cholecystitis with no activity in the gallbladder LFT stable and within normal limits Antiemetics on board Surgical intervention on 02/01/22 Pain medications on board (3) Sepsis: Code(s): A41.9 - Sepsis, unspecified organism Status: Acute Assessment and Plan: Sirs are positive with leukocytosis, elevated HR, tachypnea LR bolus given antibiotics broadened to Zosyn Blood cultures pending urine culture pending WBC trending down currently 19.1 continue to trend labs change therapy as indicated. (4) Anemia: Qualifiers: Anemia type: unspecified type Qualified Code(s): D64.9 - Anemia, unspecified Code(s): D64.9 - Anemia, unspecified Status: Chronic Assessment and Plan: Current H&H 8.8/27.8 Anemia labs stable at this time Could be a bit of dilution with the decrease in the labs Supplement as indicated Trend H&H Transfuse if hemoglobin less than 7 (5) Hypokalemia: Code(s): E87.6 - Hypokalemia Status: Acute Assessment and Plan: Potassium stable today at 2.7 Seems resolved Trend labs Replaced at the time, continue to trend Stable (6) Asymptomatic bacteriuria: Code(s): R82.71 - Bacteriuria Status: Resolved Assessment and Plan: CT indicated 2 large bladder stones and frequent UTIs Urology consulted Will plan for outpatient treatment Continue trend urine output (7) Hypertension: Code(s): I10 - Essential (primary) hypertension Status: Acute Assessment and Plan: Current blood pressure 146/75 Continue home metoprolol Hold losartan for now Trend blood pressure Adjust therapy as indicated (8) Bladder calculus: Code(s): N21.0 - Calculus in bladder Status: Acute Assessment and Plan: CT indicated 2 large bladder stones and frequent UTIs Urology consulted Will plan for outpatient treatment Continue trend urine output (9) Coronary artery disease: Qualifiers: Associated angina: without angina Coronary Disease-Associated Artery/Lesion type: [place] artery [place] vs. transplanted heart: [place] heart Qualified Code(s): I25.10 - Atherosclerotic heart disease of [place] coronary artery without angina pectoris Code(s): I25.10 - Atherosclerotic heart disease of [place] coronary artery without angina pectoris Status: Chronic Assessment and Plan: Continue aspirin Plavix resumed Plavix for stent placement (10) Dementia: Qualifiers: Dementia behavioral or psychological symptom: without behavioral, psychotic, or mood disturbance or anxiety Dementia severity: moderate Dementia type: unspecified type Qualified Code(s): F03.B0 - Unspecified
--- NOTE | 2022-02-04 10:30 | P.PNIM_ITS ---
Progress Note: A&P Assessment and Plan (1) Status post cholecystectomy: Code(s): Z90.49 - Acquired absence of other specified parts of digestive tract Status: Acute Assessment and Plan: * POD 3 * CT of the abdomen pelvis showed moderate distention of the gallbladder, gallbladder wall thickening, possible cholelithiasis * HIDA scan performed showed acute cholecystitis with no activity in the gallbladder * General surgery consulted * Diet advanced per surgery * LFT stable and within normal limits * Antiemetics on board * Pain medications on board * Drain in place, drain in place draining bloody drainage, site appears well (2) Cholecystitis: Code(s): K81.9 - Cholecystitis, unspecified Status: Acute Assessment and Plan: * History of acute cholecystitis status post cholecystectomy tube that was placed on 12/30/2021 * removed by patient * CT of the abdomen pelvis showed moderate distention of the gallbladder, gallbladder wall thickening, possible cholelithiasis * General surgery consulted * Diet advanced as tolerated per surgery * HIDA scan performed showed acute cholecystitis with no activity in the gallbladder * LFT stable and within normal limits * Antiemetics on board * Surgical intervention on 02/01/22 * Pain medications on board (3) Sepsis: Code(s): A41.9 - Sepsis, unspecified organism Status: Acute Assessment and Plan: * Sirs are positive with leukocytosis, elevated HR, tachypnea * LR bolus given * antibiotics broadened to Zosyn * Blood cultures pending * urine culture pending * WBC trending down currently 19.1 * continue to trend labs * change therapy as indicated. (4) Anemia: Qualifiers: Anemia type: unspecified type Qualified Code(s): D64.9 - Anemia, unspecified Code(s): D64.9 - Anemia, unspecified Status: Chronic Assessment and Plan: * Current H&H 8.8/27.8 * Anemia labs stable at this time * Could be a bit of dilution with the decrease in the labs * Supplement as indicated * Trend H&H * Transfuse if hemoglobin less than 7 (5) Hypokalemia: Code(s): E87.6 - Hypokalemia Status: Acute Assessment and Plan: * Potassium stable today at 2.7 * Seems resolved * Trend labs * Replaced at the time, continue to trend * Stable (6) Asymptomatic bacteriuria: Code(s): R82.71 - Bacteriuria Status: Resolved Assessment and Plan: * CT indicated 2 large bladder stones and frequent UTIs * Urology consulted * Will plan for outpatient treatment * Continue trend urine output (7) Hypertension: Code(s): I10 - Essential (primary) hypertension Status: Acute Assessment and Plan: * Current blood pressure 146/75 * Continue home metoprolol * Hold losartan for now * Trend blood pressure * Adjust therapy as indicated (8) Bladder calculus: Code(s): N21.0 - Calculus in bladder Status: Acute Assessment and Plan: * CT indicated 2 large bladder stones and frequent UTIs * Urology consulted * Will plan for outpatient treatment * Continue trend urine output (9) Coronary artery disease: Qualifiers: Associated angina: without angina Coronary Disease-Associated
--- NOTE | 2022-02-04 11:44 | PM.PNGS ---
Progress Note: A&P Assessment and Plan (1) Cholecystitis: Code(s): K81.9 - Cholecystitis, unspecified Status: Acute Assessment and Plan: improving. Heart rate down to the 80s. No fever. Making urine. Less bile tinge in JOSE [place] JESUS drain. [place] [id number] today. Able to verbalize a little more today than yesterday. Overall seems to be improving. Continue present treatment. Still no appetite. (2) Status post cholecystectomy: Code(s): Z90.49 - Acquired absence of other specified parts of digestive tract Status: Acute Assessment and Plan: See above. Difficult cholecystectomy. Seems to be improving. (3) Coronary artery disease: Qualifiers: Coronary Disease-Associated Artery/Lesion type: [place] artery [place] vs. transplanted heart: [place] heart Associated angina: without angina Qualified Code(s): I25.10 - Atherosclerotic heart disease of [place] coronary artery without angina pectoris Code(s): I25.10 - Atherosclerotic heart disease of [place] coronary artery without angina pectoris Status: Chronic Assessment and Plan: No sign acute postoperative event as yet (4) Dementia: Qualifiers: Dementia type: unspecified type Dementia severity: moderate Dementia behavioral or psychological symptom: without behavioral, psychotic, or mood disturbance or anxiety Qualified Code(s): F03.B0 - Unspecified dementia, moderate, without behavioral disturbance, psychotic disturbance, mood disturbance, and anxiety Code(s): F03.90 - Unspecified dementia, unspecified severity, without behavioral disturbance, psychotic disturbance, mood disturbance, and anxiety Status: Chronic Assessment and Plan: difficulty verbalizing as above. (5) Hypokalemia: Code(s): E87.6 - Hypokalemia Status: Acute Assessment and Plan: Being supplemented by the hospitalist. Subjective Subjective Date/Time Seen: 02/04/22 11:44 Post Op day: 3 Patient reports: other ( Able to say a few words today. Still not really able to communicate.) Interval history: Does not feel good but does not seem to be able to say what is giving him trouble. Does not have any appetite. Review of Systems Review of Systems: ROS unobtainable: Yes unobtainable due to medical condition Exam Const: General: comfortable, alert and awake GI: Inspection: non-distended, incision ( Healing well), obesity and other ( JOSE [place] JESUS drain shows serosanguineous output. Little or no bile tinge) GI Palp: Yes Soft to palpation, Yes Tenderness to palpation present (GI) and No Guarding due to palpation present (GI) Auscultation: normal bowel sounds Objective Data Vital Signs Vital Signs: Vital Signs - 24 hr 02/03/22 15:06 02/03/22 16:00 02/03/22 17:57 Temperature 36.7 C Pulse Rate 103 H 102 H 104 H Respiratory Rate 16 Blood Pressure 148/84 H Pulse Oximetry 97 02/03/22 21:30 02/03/22 20:00 02/03/22 23:26 Temperature 36.9 C Pulse Rate 93 106 H 101 H Respiratory Rate 20 Blood Pressure 131/73 Pulse Oximetry 96 02/04/22 00:00 02/04/22 04:00 02/04/22 05:17 Temperature Pulse Rate 97 83 84 Respiratory Rate Blood Pressure Pulse Oximetry 02/04/22 05:18 Temperature 36.7 C Pulse Rate 84 Respiratory Rate 18 Blood Pressure 146/75 H Pulse Oximetry 98 Intake/Output Intake/Output: Intake & Output 02/01/22 02/02/22 02/03/22 02/04/22 23:59 23:59 23:59 22:59 Intake Total 3061 4150 3420 50 Output Total 1000 1400 520 505 Balance 2061 2750 2900 -455 Meds/Results Medications: Active Medications Generic Name Dose Route Start Last Admin Trade Name Freq PRN Reason Stop Dose Admin Acetaminophen 650 mg 01/23/22 23:48 Acetaminophen 325 Mg Tablet PO Q6H PRN Pain Rated 1-3 Hydrocodone Bitart/Acetaminophen 1 tab 01/29/22 09:05 02/01/22 20:22 Hydrocodone/Acetaminophen (*Crx) 5-325 Mg
[2022-02-04] MEDS: LACTATED RINGERS 1,000 ML 100 ML IV CONT (13:38)
[2022-02-04] MEDS: GABAPENTIN 100 MG CAPSULE PO (15:49)
[2022-02-04] MEDS: SENNA/DOCUSATE SODIUM TABLET 2 TAB PO (17:58)
[2022-02-05] VITALS (11 sets, daily range): BP systolic 112–141; BP diastolic 66–76; PULSE 72–105; RESP 16–20; TEMP 36.2–36.8; O2SAT 93–98
[2022-02-05] MEDS: TAMSULOSIN HCL 0.4 MG CAPSULE PO ×2 (00:19→20:30)
[2022-02-05] MEDS: GABAPENTIN 100 MG CAPSULE PO ×4 (00:19→20:31)
[2022-02-05] MEDS: METOPROLOL TARTRATE 25 MG TABLET PO ×3 (00:19→20:30)
[2022-02-05] MEDS: FINASTERIDE 5 MG TABLET PO ×2 (00:19→20:31)
[2022-02-05] MEDS: LACTATED RINGERS 1,000 ML 100 ML IV CONT (00:20)
[2022-02-05] MEDS: ATORVASTATIN 40 MG TABLET 80 MG PO ×2 (00:20→20:31)
--- NOTE | 2022-02-05 09:00 | PM.IMPN ---
Progress Note: A&P Assessment and Plan (1) Status post cholecystectomy: Code(s): Z90.49 - Acquired absence of other specified parts of digestive tract Status: Acute Assessment and Plan: POD 4 CT of the abdomen pelvis showed moderate distention of the gallbladder, gallbladder wall thickening, possible cholelithiasis HIDA scan performed showed acute cholecystitis with no activity in the gallbladder General surgery consulted Diet advanced to a regular diet LFT stable and within normal limits Antiemetics on board Pain medications on board Drain in place, drain in place draining bloody drainage, site appears well (2) Cholecystitis: Code(s): K81.9 - Cholecystitis, unspecified Status: Acute Assessment and Plan: History of acute cholecystitis status post cholecystectomy tube that was placed on 12/30/[address] of the abdomen pelvis showed moderate distention of the gallbladder, gallbladder wall thickening, possible cholelithiasis General surgery consulted Diet advanced to regular HIDA scan performed showed acute cholecystitis with no activity in the gallbladder LFT stable and within normal limits Antiemetics on board Surgical intervention on 02/01/22 Pain medications on board (3) Sepsis: Code(s): A41.9 - Sepsis, unspecified organism Status: Acute Assessment and Plan: Sirs are positive with leukocytosis, elevated HR, tachypnea LR bolus given antibiotics broadened to Zosyn Blood cultures pending urine culture pending WBC trending down currently 12.0 continue to trend labs change therapy as indicated. Resolved (4) Anemia: Qualifiers: Anemia type: unspecified type Qualified Code(s): D64.9 - Anemia, unspecified Code(s): D64.9 - Anemia, unspecified Status: Chronic Assessment and Plan: Current H&H 8.5/26.0 Anemia labs stable at this time Could be a bit of dilution with the decrease in the labs Supplement as indicated Trend H&H Transfuse if hemoglobin less than 7 (5) Hypokalemia: Code(s): E87.6 - Hypokalemia Status: Acute Assessment and Plan: Potassium stable today at 2.8 Give 80 mcq oral Trend labs Stable (6) Asymptomatic bacteriuria: Code(s): R82.71 - Bacteriuria Status: Resolved Assessment and Plan: CT indicated 2 large bladder stones and frequent UTIs Urology consulted Will plan for outpatient treatment Continue trend urine output (7) Hypertension: Code(s): I10 - Essential (primary) hypertension Status: Acute Assessment and Plan: Current blood pressure 136/76 Continue home metoprolol Hold losartan for now Trend blood pressure Adjust therapy as indicated (8) Bladder calculus: Code(s): N21.0 - Calculus in bladder Status: Acute Assessment and Plan: CT indicated 2 large bladder stones and frequent UTIs Urology consulted Will plan for outpatient treatment Continue trend urine output (9) Coronary artery disease: Qualifiers: Associated angina: without angina Coronary Disease-Associated Artery/Lesion type: [place] artery [place] vs. transplanted heart: [place] heart Qualified Code(s): I25.10 - Atherosclerotic heart disease of [place] coronary artery without angina pectoris Code(s): I25.10 - Atherosclerotic heart disease of [place] coronary artery without angina pectoris Status: Chronic Assessment and Plan: Continue aspirin Plavix resumed Plavix for stent placement (10) Dementia: Qualifiers: Dementia behavioral or psychological symptom: without behavioral, psychotic, or mood disturbance or anxiety Dementia severity: moderate Dementia type: unspecified type Qualified Code(s): F03.B0 - Unspecified dementia, moderate, without [place]
--- NOTE | 2022-02-05 09:00 | P.PNIM_ITS ---
Progress Note: A&P Assessment and Plan (1) Status post cholecystectomy: Code(s): Z90.49 - Acquired absence of other specified parts of digestive tract Status: Acute Assessment and Plan: * POD 4 * CT of the abdomen pelvis showed moderate distention of the gallbladder, gallbladder wall thickening, possible cholelithiasis * HIDA scan performed showed acute cholecystitis with no activity in the gallbladder * General surgery consulted * Diet advanced to a regular diet * LFT stable and within normal limits * Antiemetics on board * Pain medications on board * Drain in place, drain in place draining bloody drainage, site appears well (2) Cholecystitis: Code(s): K81.9 - Cholecystitis, unspecified Status: Acute Assessment and Plan: * History of acute cholecystitis status post cholecystectomy tube that was placed on 12/30/2021 * removed by patient * CT of the abdomen pelvis showed moderate distention of the gallbladder, gallbladder wall thickening, possible cholelithiasis * General surgery consulted * Diet advanced to regular * HIDA scan performed showed acute cholecystitis with no activity in the gallbladder * LFT stable and within normal limits * Antiemetics on board * Surgical intervention on 02/01/22 * Pain medications on board (3) Sepsis: Code(s): A41.9 - Sepsis, unspecified organism Status: Acute Assessment and Plan: * Sirs are positive with leukocytosis, elevated HR, tachypnea * LR bolus given * antibiotics broadened to Zosyn * Blood cultures pending * urine culture pending * WBC trending down currently 12.0 * continue to trend labs * change therapy as indicated. * Resolved (4) Anemia: Qualifiers: Anemia type: unspecified type Qualified Code(s): D64.9 - Anemia, unspecified Code(s): D64.9 - Anemia, unspecified Status: Chronic Assessment and Plan: * Current H&H 8.5/26.0 * Anemia labs stable at this time * Could be a bit of dilution with the decrease in the labs * Supplement as indicated * Trend H&H * Transfuse if hemoglobin less than 7 (5) Hypokalemia: Code(s): E87.6 - Hypokalemia Status: Acute Assessment and Plan: * Potassium stable today at 2.8 * Give 80 mcq oral * Trend labs * Stable (6) Asymptomatic bacteriuria: Code(s): R82.71 - Bacteriuria Status: Resolved Assessment and Plan: * CT indicated 2 large bladder stones and frequent UTIs * Urology consulted * Will plan for outpatient treatment * Continue trend urine output (7) Hypertension: Code(s): I10 - Essential (primary) hypertension Status: Acute Assessment and Plan: * Current blood pressure 136/76 * Continue home metoprolol * Hold losartan for now * Trend blood pressure * Adjust therapy as indicated (8) Bladder calculus: Code(s): N21.0 - Calculus in bladder Status: Acute Assessment and Plan: * CT indicated 2 large bladder stones and frequent UTIs * Urology consulted * Will plan for outpatient treatment * Continue trend urine output (9) Coronary artery disease: Qualifiers: Associated angina: without angina Coronary Disease-Associated Artery/Lesion type: [place] artery
[2022-02-05] MEDS: buPROPion HCL XL (24 HR) 150 MG TABCR PO (09:27)
[2022-02-05] MEDS: PANTOPRAZOLE SODIUM IV 40 MG VIAL IV PUSH (09:28)
[2022-02-05] MEDS: SENNA/DOCUSATE SODIUM TABLET 2 TAB PO (09:28)
[2022-02-05] MEDS: FUROSEMIDE INJ 40 MG/4 ML VIAL IV PUSH ×2 (09:29→20:30)
[2022-02-05] MEDS: VENLAFAXINE HCL 75 MG TABLET 150 MG PO (09:29)
--- NOTE | 2022-02-05 12:14 | PCNFU ---
Nutrition Follow-Up Complete: Inadequate energy intake related to nausea as evidenced by pt report and charted intake of meal refusals goal: PO intake 50% of meals with tolerance Patient has limited progress towards goal. We will continue current goal. Pt current nutrition is Regular. Last recorded weight is 96.6 kg. Bowel Motility:+Bm reported 02/04 Labs Reviewed:Cr 0.6,Na 135, Alb 2.5,Hgb 8.8,Hct 27.8 Meds Noted:Lipitor, Wellbutrin,Senokot,LR, Lopressor. Skin: WNL Additional Notes: Nutrition follow up. Diet order has advanced to Regular diet. Oral Intake has been poor. PO intake has been encouraged. Diet supplements have been added of Ensure compact BID providing an additional 220 kcals and 9 gms protein. Agree with diet orders. Monitor intake, wt, labs every 3 days.
[2022-02-05 13:15] LABS: Alanine Aminotransferase 9 U/L (6-50); Albumin Level 2.7 g/dL (3.5-5.1); Alkaline Phosphatase 73 U/L (38-126); Anion Gap 14 mmol/L (8-16); Aspartate Amino Transferase 17 U/L (17-59); Bilirubin,Total 0.8 mg/dL (0.2-1.3); Blood Urea Nitrogen 8 mg/dL (9-20); Calcium 7.6 mg/dL (8.4-10.2); Carbon Dioxide 25 mmol/L (22-30); Chloride 97 mmol/L (98-107); Estimated CRCL calculation 124 ml/min; Estimated Glomerular Filt Rate > 60; Glucose 93 mg/dL (65-110); Magnesium 2.2 mg/dL (1.6-2.3); Potassium 2.8 mmol/L (3.4-5.0); Sodium 136 mmol/L (137-145)
[2022-02-05] MEDS: POTASSIUM CHLORIDE 20 MEQ PACKET (FOR LIQUID) 40 MEQ PO ×2 (14:12→17:30)
[2022-02-05 14:21] LABS: Basophils Percent Auto 0.2 % (0.2-1.2); Eosinophils Absolute Auto 0.1 K/mm3 (0-0.3); Eosinophils Percent Auto 1.2 % (0-4.4); Hemoglobin 8.5 g/dL (14.0-18.0); Immature Granulocyte Absolute 0.14 K/mm3 (0.00-0.031); Immature Granulocyte Percent A 1.2 % (0-0.5); Lymphocytes Absolute Auto 2.03 K/mm3 (0.9-3.2); Lymphocytes Percent Auto 16.9 % (18.3-44.2); Mean Corpuscular HGB Conc 32.7 g/dl (32-36); Mean Corpuscular Hemoglobin 27.7 pg (26-34); Mean Corpuscular Volume 84.7 fl (80-100); Monocytes Absolute Auto 0.9 K/mm3 (0.1-0.6); Monocytes Percent Auto 7.7 % (2.6-8.5); Neutrophils Absolute Auto 8.8 K/mm3 (1.3-6.7); Neutrophils Percent Auto 72.8 % (45.5-73.1); Nucleated Red Blood Cells Absolute Auto 0.1 K/mm3 (0.0-0.012); Nucleated Red Blood Cells Perc 0.6 % (0.0-0.2); Platelet Count Result 233 k/mm3 (150-375); Red Blood Count 3.07 M/mm3 (4.6-6.20); Red Cell Distribution Width 20.8 % (11.5-14.5)
--- NOTE | 2022-02-05 15:13 | PM.PNGS ---
Progress Note: A&P Assessment and Plan (1) Cholecystitis: Code(s): K81.9 - Cholecystitis, unspecified Status: Acute Assessment and Plan: Continues to slowly improve. Appetite improving and eating more today. WBC continues to trend down and he is afebrile. He is becoming more alert and verbal. JOSE DE JESUS drain becoming more serosanguineous, only very slightly bile-tinged if any today. Continue to monitor JOSE DE JESUS drain. Continue antibiotics. (2) Status post cholecystectomy: Code(s): Z90.49 - Acquired absence of other specified parts of digestive tract Status: Acute Assessment and Plan: See above. Difficult cholecystectomy. Seems to be improving. (3) Coronary artery disease: Qualifiers: Associated angina: without angina Coronary Disease-Associated Artery/Lesion type: [place] artery [place] vs. transplanted heart: [place] heart Qualified Code(s): I25.10 - Atherosclerotic heart disease of [place] coronary artery without angina pectoris Code(s): I25.10 - Atherosclerotic heart disease of [place] coronary artery without angina pectoris Status: Chronic Assessment and Plan: No sign acute postoperative event as yet. Okay to resume Plavix/ASA from a surgical standpoint. (4) Dementia: Qualifiers: Dementia behavioral or psychological symptom: without behavioral, psychotic, or mood disturbance or anxiety Dementia severity: moderate Dementia type: unspecified type Qualified Code(s): F03.B0 - Unspecified dementia, moderate, without behavioral disturbance, psychotic disturbance, mood disturbance, and anxiety Code(s): F03.90 - Unspecified dementia, unspecified severity, without behavioral disturbance, psychotic disturbance, mood disturbance, and anxiety Status: Chronic Assessment and Plan: Becoming more alert and verbal (5) Hypokalemia: Code(s): E87.6 - Hypokalemia Status: Acute Assessment and Plan: Continue to monitor and replace as needed. Plan I have discussed the patient's case and plan of care with Dr. Cornelius. Subjective Subjective Date/Time Seen: 02/05/22 11:13 Post Op day: 4 (Subtotal cholecystectomy, extensive lysis of adhesions) Patient reports: feels better and afebrile Interval history: Patient seen and examined. He is alert and oriented to self and time. He knows he is in a hospital but wasn't sure which one. He is able to answer questions. He denies any abdominal pain at this time. He is uncomfortable in bed but no specific pain. He is feeling like his appetite is better today and he is eating and drinking better today. He has nausea at times, but not currently. No vomiting. Review of Systems Review of Systems: All systems reviewed & are unremarkable except as noted in HPI and below Exam Const: General: comfortable, no acute distress and alert Nutritional Appearance: obese Orientation/consciousness: oriented to person and oriented to time GI: Inspection: non-distended, incision (dy and intact, healing well) and other ( JOSE DE JESUS drain shows serosanguineous output. Little or no bile tinge) GI Palp: Yes Soft to palpation, Yes Tenderness to palpation present (GI) (incisional) and No Guarding due to palpation present (GI) Auscultation: normal bowel sounds Extrem: General: edema bilateral (upper ext) Psych: Insight: Fair insight present (Psych) Judgement: Fair judgement present (Psych) Objective Data Vital Signs Vital Signs: Vital Signs - 24 hr 02/04/22 16:00 02/04/22 19:47 02/04/22 20:00 Temperature 97.9 F Pulse Rate 92 76 76 Respiratory Rate 16 16 Blood Pressure 139/81 Pulse Oximetry 93 93 Oxygen Delivery Room Air 02/04/22 20:00 02/05/22 00:19 02/05/22 00:00 Temperature Pulse Rate 105 H 105 H 103 H Respiratory Rate Blood Pressure Pulse Oximetry Oxygen Delivery 02/05/22 04:43 02/05/22 04:00 02/05/22 09:30 Temperature 98.2 F Pulse Rate 78 72 88 Respiratory Rate 16
[2022-02-05] MEDS: POTASSIUM CHLORIDE INJ 40 MEQ in SODIUM CHLORIDE 0.9% IV 500 ML 130 MEQ IVPB (15:27)
[2022-02-05 19:07] LABS: Potassium 3.2 mmol/L (3.4-5.0)
[2022-02-05] MEDS: AMOXICILLIN/CLAVULANATE K 875-125 MG TAB 1 TABLET PO (20:30)
[2022-02-06 05:02] VITALS: BP 119/71; PULSE 92; RESP 18; TEMP 36.8; O2SAT 96
[2022-02-06] MEDS: GABAPENTIN 100 MG CAPSULE PO ×3 (05:02→22:08)
[2022-02-06 06:06] LABS: Alanine Aminotransferase 8 U/L (6-50); Albumin Level 2.7 g/dL (3.5-5.1); Alkaline Phosphatase 76 U/L (38-126); Anion Gap 11 mmol/L (8-16); Aspartate Amino Transferase 21 U/L (17-59); Bilirubin,Total 0.7 mg/dL (0.2-1.3); Blood Urea Nitrogen 7 mg/dL (9-20); Calcium 7.7 mg/dL (8.4-10.2); Carbon Dioxide 29 mmol/L (22-30); Chloride 96 mmol/L (98-107); Estimated CRCL calculation 105 ml/min; Estimated Glomerular Filt Rate > 60; Glucose 85 mg/dL (65-110); Magnesium 2.1 mg/dL (1.6-2.3); Potassium 3.1 mmol/L (3.4-5.0); Sodium 136 mmol/L (137-145)
[2022-02-06 07:20] LABS: Hematocrit 27.1 % (42.0-52.0); Hemoglobin 8.7 g/dL (14.0-18.0); Mean Corpuscular Hemoglobin 27.5 pg (26-34); Mean Corpuscular Volume 85.8 fl (80-100); Red Blood Count 3.16 M/mm3 (4.6-6.20)
[2022-02-06 07:21] LABS: Mean Corpuscular HGB Conc 32.1 g/dl (32-36); Red Cell Distribution Width 20.5 % (11.5-14.5)
[2022-02-06 07:22] LABS: Basophils Percent Auto 0.2 % (0.2-1.2); Eosinophils Percent Auto 1.9 % (0-4.4); Immature Granulocyte Percent A 0.7 % (0-0.5); Lymphocytes Percent Auto 15.9 % (18.3-44.2); Mean Platelet Volume 9.9 fl (7.4-10.4); Monocytes Percent Auto 10.5 % (2.6-8.5); Neutrophils Percent Auto 70.8 % (45.5-73.1); Nucleated Red Blood Cells Perc 0.3 % (0.0-0.2); Platelet Count Result 243 k/mm3 (150-375)
[2022-02-06 07:23] LABS: Eosinophils Absolute Auto 0.2 K/mm3 (0-0.3); Immature Granulocyte Absolute 0.08 K/mm3 (0.00-0.031); Lymphocytes Absolute Auto 1.75 K/mm3 (0.9-3.2); Monocytes Absolute Auto 1.2 K/mm3 (0.1-0.6); Neutrophils Absolute Auto 7.8 K/mm3 (1.3-6.7)
[2022-02-06] MEDS: AMOXICILLIN/CLAVULANATE K 875-125 MG TAB 1 TABLET PO ×2 (09:48→22:08)
[2022-02-06] MEDS: VENLAFAXINE HCL 75 MG TABLET 150 MG PO (09:48)
[2022-02-06] MEDS: POTASSIUM CHLORIDE 20 MEQ PACKET (FOR LIQUID) 80 MEQ PO (09:48)
[2022-02-06] MEDS: SENNA/DOCUSATE SODIUM TABLET 2 TAB PO ×2 (09:48→16:31)
[2022-02-06] MEDS: buPROPion HCL XL (24 HR) 150 MG TABCR PO (09:48)
[2022-02-06 09:49] VITALS: PULSE 64
[2022-02-06] MEDS: METOPROLOL TARTRATE 25 MG TABLET PO ×2 (09:49→22:08)
[2022-02-06] MEDS: FUROSEMIDE INJ 40 MG/4 ML VIAL IV PUSH ×2 (09:50→16:31)
--- NOTE | 2022-02-06 10:45 | P.PNIM_ITS ---
Progress Note: A&P Assessment and Plan (1) Status post cholecystectomy: Code(s): Z90.49 - Acquired absence of other specified parts of digestive tract Status: Acute Assessment and Plan: * POD 6 * CT of the abdomen pelvis showed moderate distention of the gallbladder, gallbladder wall thickening, possible cholelithiasis * HIDA scan performed showed acute cholecystitis with no activity in the gallbladder * General surgery consulted * Diet advanced to a regular diet * LFT stable and within normal limits * Antiemetics on board * Pain medications on board * Drain in place, drain in place draining bloody drainage, site appears well, drain to be DC'd at discharge * Appears to be taking in better PO intake * Continue to encourage intake (2) Cholecystitis: Code(s): K81.9 - Cholecystitis, unspecified Status: Acute Assessment and Plan: * History of acute cholecystitis status post cholecystectomy tube that was placed on 12/30/2021 * removed by patient * CT of the abdomen pelvis showed moderate distention of the gallbladder, gallbladder wall thickening, possible cholelithiasis * General surgery consulted * Diet advanced to regular * HIDA scan performed showed acute cholecystitis with no activity in the gallbladder * LFT stable and within normal limits * Antiemetics on board * Surgical intervention on 02/01/22 * Pain medications on board (3) Sepsis: Code(s): A41.9 - Sepsis, unspecified organism Status: Acute Assessment and Plan: * Sirs are positive with leukocytosis, elevated HR, tachypnea * LR bolus given * antibiotics broadened to Zosyn * Blood cultures pending * urine culture pending * WBC trending down currently 11.0 * continue to trend labs * change therapy as indicated. * Resolved (4) Anemia: Qualifiers: Anemia type: unspecified type Qualified Code(s): D64.9 - Anemia, unspecified Code(s): D64.9 - Anemia, unspecified Status: Chronic Assessment and Plan: * Current H&H 8.7/27.1 * Anemia labs stable at this time * Could be a bit of dilution with the decrease in the labs * Supplement as indicated * Trend H&H * Transfuse if hemoglobin less than 7 (5) Hypokalemia: Code(s): E87.6 - Hypokalemia Status: Acute Assessment and Plan: * Potassium stable today at 3.1 * Give 80 mcq oral, repeat * Trend labs * Stable (6) Asymptomatic bacteriuria: Code(s): R82.71 - Bacteriuria Status: Resolved Assessment and Plan: * CT indicated 2 large bladder stones and frequent UTIs * Urology consulted * Will plan for outpatient treatment * Continue trend urine output (7) Hypertension: Code(s): I10 - Essential (primary) hypertension Status: Acute Assessment and Plan: * Current blood pressure 119/71 * Continue home metoprolol * Resume losartan * Trend blood pressure * Adjust therapy as indicated (8) Bladder calculus: Code(s): N21.0 - Calculus in bladder Status: Acute Assessment and Plan: * CT indicated 2 large bladder stones and frequent UTIs * Urology consulted * Will plan for outpatient treatment * Continue trend urine output (9) Coronary artery disease: [place]
--- NOTE | 2022-02-06 10:45 | PM.IMPN ---
Progress Note: A&P Assessment and Plan (1) Status post cholecystectomy: Code(s): Z90.49 - Acquired absence of other specified parts of digestive tract Status: Acute Assessment and Plan: POD 6 CT of the abdomen pelvis showed moderate distention of the gallbladder, gallbladder wall thickening, possible cholelithiasis HIDA scan performed showed acute cholecystitis with no activity in the gallbladder General surgery consulted Diet advanced to a regular diet LFT stable and within normal limits Antiemetics on board Pain medications on board Drain in place, drain in place draining bloody drainage, site appears well, drain to be DC'd at discharge Appears to be taking in better PO intake Continue to encourage intake (2) Cholecystitis: Code(s): K81.9 - Cholecystitis, unspecified Status: Acute Assessment and Plan: History of acute cholecystitis status post cholecystectomy tube that was placed on 12/30/[address] of the abdomen pelvis showed moderate distention of the gallbladder, gallbladder wall thickening, possible cholelithiasis General surgery consulted Diet advanced to regular HIDA scan performed showed acute cholecystitis with no activity in the gallbladder LFT stable and within normal limits Antiemetics on board Surgical intervention on 02/01/22 Pain medications on board (3) Sepsis: Code(s): A41.9 - Sepsis, unspecified organism Status: Acute Assessment and Plan: Sirs are positive with leukocytosis, elevated HR, tachypnea LR bolus given antibiotics broadened to Zosyn Blood cultures pending urine culture pending WBC trending down currently 11.0 continue to trend labs change therapy as indicated. Resolved (4) Anemia: Qualifiers: Anemia type: unspecified type Qualified Code(s): D64.9 - Anemia, unspecified Code(s): D64.9 - Anemia, unspecified Status: Chronic Assessment and Plan: Current H&H 8.7/27.1 Anemia labs stable at this time Could be a bit of dilution with the decrease in the labs Supplement as indicated Trend H&H Transfuse if hemoglobin less than 7 (5) Hypokalemia: Code(s): E87.6 - Hypokalemia Status: Acute Assessment and Plan: Potassium stable today at 3.1 Give 80 mcq oral, repeat Trend labs Stable (6) Asymptomatic bacteriuria: Code(s): R82.71 - Bacteriuria Status: Resolved Assessment and Plan: CT indicated 2 large bladder stones and frequent UTIs Urology consulted Will plan for outpatient treatment Continue trend urine output (7) Hypertension: Code(s): I10 - Essential (primary) hypertension Status: Acute Assessment and Plan: Current blood pressure 119/71 Continue home metoprolol Resume losartan Trend blood pressure Adjust therapy as indicated (8) Bladder calculus: Code(s): N21.0 - Calculus in bladder Status: Acute Assessment and Plan: CT indicated 2 large bladder stones and frequent UTIs Urology consulted Will plan for outpatient treatment Continue trend urine output (9) Coronary artery disease: Qualifiers: Associated angina: without angina Coronary Disease-Associated Artery/Lesion type: [place] artery [place] vs. transplanted heart: [place] heart Qualified Code(s): I25.10 - Atherosclerotic heart disease of [place] coronary artery without angina pectoris Code(s): I25.10 - Atherosclerotic heart disease of [place] coronary artery without angina pectoris Status: Chronic Assessment and Plan: Continue aspirin Plavix still on hold, awaiting ok from surgery Plavix for stent placement (10) Dementia: Qualifiers: Dementia behavioral or psychological symptom: without behavioral, psychotic, or mood disturbance or anxi
[2022-02-06] MEDS: ASPIRIN 81 MG CHEWABLE TABLET PO (11:56)
[2022-02-06] MEDS: PANTOPRAZOLE 40 MG TABLET PO (11:56)
[2022-02-06] MEDS: CLOPIDOGREL BISULFATE 75 MG TABLET PO (11:56)
[2022-02-06 14:00] VITALS: BP 109/67; PULSE 90; RESP 18; TEMP 36.1; O2SAT 94
--- NOTE | 2022-02-06 16:06 | PM.PNGS ---
Progress Note: A&P Assessment and Plan (1) Cholecystitis: Code(s): K81.9 - Cholecystitis, unspecified Status: Acute Assessment and Plan: Continues to slowly improve. Oral intake improving. WBC trending down. Continue to monitor JOSE DE JESUS drain, plan to remove possibly on discharge. Continue antibiotics. If patient continues to improve, he could potentially be discharged in the next 1-2 days. (2) Status post cholecystectomy: Code(s): Z90.49 - Acquired absence of other specified parts of digestive tract Status: Acute Assessment and Plan: See above. Difficult cholecystectomy. Seems to be improving. (3) Coronary artery disease: Qualifiers: Coronary Disease-Associated Artery/Lesion type: [place] artery [place] vs. transplanted heart: [place] heart Associated angina: without angina Qualified Code(s): I25.10 - Atherosclerotic heart disease of [place] coronary artery without angina pectoris Code(s): I25.10 - Atherosclerotic heart disease of [place] coronary artery without angina pectoris Status: Chronic Assessment and Plan: No sign acute postoperative event as yet. (4) Dementia: Qualifiers: Dementia type: unspecified type Dementia severity: moderate Dementia behavioral or psychological symptom: without behavioral, psychotic, or mood disturbance or anxiety Qualified Code(s): F03.B0 - Unspecified dementia, moderate, without behavioral disturbance, psychotic disturbance, mood disturbance, and anxiety Code(s): F03.90 - Unspecified dementia, unspecified severity, without behavioral disturbance, psychotic disturbance, mood disturbance, and anxiety Status: Chronic Assessment and Plan: Becoming more alert and verbal (5) Hypokalemia: Code(s): E87.6 - Hypokalemia Status: Acute Assessment and Plan: Continue to monitor and replace as needed. Plan I have discussed the patient's case and plan of care with Dr. Cornelius. Subjective Subjective Date/Time Seen: 02/06/22 16:06 Interval history: Continues to improve. Eating better today. No new complaints. Review of Systems Review of Systems: All systems reviewed & are unremarkable except as noted in HPI and below Exam Const: General: comfortable, no acute distress and awake Orientation/consciousness: oriented to person and oriented to time GI: Inspection: non-distended, incision (dy and intact, healing well) and other ( JOSE DE JESUS drain shows serosanguineous output. Little or no bile tinge) Auscultation: normal bowel sounds Objective Data Vital Signs Vital Signs: Vital Signs - 24 hr 02/05/22 20:30 02/05/22 20:00 02/05/22 22:00 Temperature 97.7 F Pulse Rate 90 90 86 Respiratory Rate 18 20 Blood Pressure 112/66 Pulse Oximetry 93 98 Oxygen Delivery Room Air 02/06/22 05:02 02/06/22 09:49 02/06/22 08:00 Temperature 98.3 F Pulse Rate 92 64 Respiratory Rate 18 Blood Pressure 119/71 Pulse Oximetry 96 Oxygen Delivery Room Air 02/06/22 14:00 Temperature 97.0 F L Pulse Rate 90 Respiratory Rate 18 Blood Pressure 109/67 Pulse Oximetry 94 Oxygen Delivery Intake/Output Intake/Output: Intake & Output 02/04/22 02/04/22 02/05/22 02/06/22 00:59 23:59 23:59 23:59 Intake Total 370 450 Output Total 4582 2960 Balance -2357 -9200 Meds/Results Medications: Active Medications Generic Name Dose Route Start Last Admin Trade Name Freq PRN Reason Stop Dose Admin Acetaminophen 650 mg 01/23/22 23:48 Acetaminophen 325 Mg Tablet PO Q6H PRN Pain Rated 1-3 Hydrocodone Bitart/Acetaminophen 1 tab 01/29/22 09:05 02/01/22 20:22 Hydrocodone/Acetaminophen (*Crx) 5-325 Mg Tablet PO 1 tab Q6H PRN Administration Pain Rated 4-6 Amoxicillin/Clavulanate Potassium 1 tablet 02/05/22 21:00 02/06/22 09:48 Amoxicillin/Clavulanate K 875-125 Mg Tab PO 1 tablet Q12HR MYA Administration Aspirin 81 mg 01/24/22 0
[2022-02-06 19:17] VITALS: BP 100/60; PULSE 90; RESP 18; TEMP 36.2; O2SAT 100
[2022-02-06] MEDS: TAMSULOSIN HCL 0.4 MG CAPSULE PO (22:07)
[2022-02-06 22:08] VITALS: PULSE 90
[2022-02-06] MEDS: FINASTERIDE 5 MG TABLET PO (22:08)
[2022-02-06] MEDS: ATORVASTATIN 40 MG TABLET 80 MG PO (22:08)
--- NOTE | 2022-02-06 22:26 | PC.NURSE ---
Unable to find 2100 marinol, pt room, med room fridge, misc narc drawer, and pt drawer on med cart did not have the medication. Pharmacy notified and will bring 2100 dose and 0900 dose, 0900 dose will be placed in narc misc drawer.
[2022-02-07 02:55] VITALS: BP 105/58; PULSE 86; RESP 18; TEMP 36.2; O2SAT 94
[2022-02-07 05:32] LABS: Alanine Aminotransferase 9 U/L (6-50); Albumin Level 2.8 g/dL (3.5-5.1); Alkaline Phosphatase 74 U/L (38-126); Anion Gap 10 mmol/L (8-16); Aspartate Amino Transferase 19 U/L (17-59); Bilirubin,Total 0.8 mg/dL (0.2-1.3); Blood Urea Nitrogen 8 mg/dL (9-20); Calcium 7.7 mg/dL (8.4-10.2); Carbon Dioxide 30 mmol/L (22-30); Chloride 93 mmol/L (98-107); Estimated CRCL calculation 91 ml/min; Estimated Glomerular Filt Rate > 60; Glucose 78 mg/dL (65-110); Magnesium 2.1 mg/dL (1.6-2.3); Potassium 3.1 mmol/L (3.4-5.0); Sodium 133 mmol/L (137-145)
[2022-02-07] MEDS: GABAPENTIN 100 MG CAPSULE PO (06:35)
[2022-02-07 07:03] LABS: Basophils Percent Auto 0.3 % (0.2-1.2); Eosinophils Absolute Auto 0.2 K/mm3 (0-0.3); Eosinophils Percent Auto 2.2 % (0-4.4); Hematocrit 23.5 % (42.0-52.0); Hemoglobin 8.6 g/dL (14.0-18.0); Immature Granulocyte Absolute 0.08 K/mm3 (0.00-0.031); Immature Granulocyte Percent A 0.8 % (0-0.5); Lymphocytes Absolute Auto 1.88 K/mm3 (0.9-3.2); Lymphocytes Percent Auto 18.2 % (18.3-44.2); Mean Corpuscular HGB Conc 36.6 g/dl (32-36); Mean Corpuscular Hemoglobin 35.1 pg (26-34); Mean Corpuscular Volume 95.9 fl (80-100); Mean Platelet Volume 9.5 fl (7.4-10.4); Monocytes Absolute Auto 1.3 K/mm3 (0.1-0.6); Monocytes Percent Auto 12.2 % (2.6-8.5); Neutrophils Absolute Auto 6.9 K/mm3 (1.3-6.7); Neutrophils Percent Auto 66.3 % (45.5-73.1); Platelet Count Result 245 k/mm3 (150-375); Red Blood Count 2.45 M/mm3 (4.6-6.20); Red Cell Distribution Width 25.4 % (11.5-14.5); White Blood Count 10.3 K/mm3 (4.5-10.0)
--- NOTE | 2022-02-07 07:28 | P.DS_ITS ---
DS: Admitting Diagnosis Discharge Date 02/07/2022 Admitting Diagnosis UTI, Failure to thrive, HTN, CAD, PAD DS: Discharge Diagnosis Discharge Diagnosis (1) Status post cholecystectomy: Code(s): Z90.49 - Acquired absence of other specified parts of digestive tract Status: Acute Assessment and Plan: * POD 7 * CT of the abdomen pelvis showed moderate distention of the gallbladder, gallbladder wall thickening, possible cholelithiasis * HIDA scan performed showed acute cholecystitis with no activity in the gallbladder * General surgery consulted and to OR on 02/01. * Diet advanced to a regular diet * LFT stable and within normal limits * Antiemetics on board * Pain medications on board * Drain in place, drain in place draining bloody drainage, site appears well, drain to be DC'd at discharge * Appears to be taking in better PO intake * Continue to encourage intake * Pt. was able to eat [employer] yesterday without any additional difficulty. (2) Cholecystitis: Code(s): K81.9 - Cholecystitis, unspecified Status: Acute Assessment and Plan: * History of acute cholecystitis status post cholecystectomy tube that was placed on 12/30/2021 * removed by patient * CT of the abdomen pelvis showed moderate distention of the gallbladder, gallbladder wall thickening, possible cholelithiasis * General surgery consulted * Diet advanced to regular * HIDA scan performed showed acute cholecystitis with no activity in the gallbladder * LFT stable and within normal limits * Antiemetics on board * Surgical intervention on 02/01/22 * Pain medications on board * Surgery to remove JOSE DE JESUS drain today prior to discharge. (3) Sepsis: Code(s): A41.9 - Sepsis, unspecified organism Status: Resolved Assessment and Plan: * Sirs are positive with leukocytosis, elevated HR, tachypnea * LR bolus given * antibiotics broadened to Zosyn * Blood cultures pending * urine culture pending * WBC trending down currently 11.0 * continue to trend labs * change therapy as indicated. * Resolved (4) Anemia: Qualifiers: Anemia type: unspecified type Qualified Code(s): D64.9 - Anemia, unspecified Code(s): D64.9 - Anemia, unspecified Status: Chronic Assessment and Plan: * Current H&H 8.7/27.1 * Anemia labs stable at this time * Could be a bit of dilution with the decrease in the labs * Supplement as indicated * Trend H&H * Transfuse if hemoglobin less than 7 (5) Hypokalemia: Code(s): E87.6 - Hypokalemia Status: Acute Assessment and Plan: * Potassium stable today at 3.1 * Give 40 mEq oral, repeat * Trend labs * Stable (6) Asymptomatic bacteriuria: Code(s): R82.71 - Bacteriuria Status: Resolved Assessment and Plan: * CT indicated 2 large bladder stones and frequent UTIs * Urology consulted * Will plan for outpatient treatment * Continue trend urine output (7) Hypertension: Code(s): I10 - Essential (primary) hypertension Status: Acute Assessment and Plan: * Current blood pressure 119/71 * Continue home metoprolol * Resume losartan * Trend blood pressure * Adjust therapy as indicated (8) Bladder calculus: Code(s): N21.0 - Calculus in bladder
--- NOTE | 2022-02-07 07:28 | PM.DS ---
DS: Admitting Diagnosis Discharge Date 02/07/2022 Admitting Diagnosis UTI, Failure to thrive, HTN, CAD, PAD DS: Discharge Diagnosis Discharge Diagnosis (1) Status post cholecystectomy: Code(s): Z90.49 - Acquired absence of other specified parts of digestive tract Status: Acute Assessment and Plan: POD 7 CT of the abdomen pelvis showed moderate distention of the gallbladder, gallbladder wall thickening, possible cholelithiasis HIDA scan performed showed acute cholecystitis with no activity in the gallbladder General surgery consulted and to OR on 02/01. Diet advanced to a regular diet LFT stable and within normal limits Antiemetics on board Pain medications on board Drain in place, drain in place draining bloody drainage, site appears well, drain to be DC'd at discharge Appears to be taking in better PO intake Continue to encourage intake Pt. was able to eat [employer] yesterday without any additional difficulty. (2) Cholecystitis: Code(s): K81.9 - Cholecystitis, unspecified Status: Acute Assessment and Plan: History of acute cholecystitis status post cholecystectomy tube that was placed on 12/30/[address] of the abdomen pelvis showed moderate distention of the gallbladder, gallbladder wall thickening, possible cholelithiasis General surgery consulted Diet advanced to regular HIDA scan performed showed acute cholecystitis with no activity in the gallbladder LFT stable and within normal limits Antiemetics on board Surgical intervention on 02/01/22 Pain medications on board Surgery to remove JOSE DE JESUS drain today prior to discharge. (3) Sepsis: Code(s): A41.9 - Sepsis, unspecified organism Status: Resolved Assessment and Plan: Sirs are positive with leukocytosis, elevated HR, tachypnea LR bolus given antibiotics broadened to Zosyn Blood cultures pending urine culture pending WBC trending down currently 11.0 continue to trend labs change therapy as indicated. Resolved (4) Anemia: Qualifiers: Anemia type: unspecified type Qualified Code(s): D64.9 - Anemia, unspecified Code(s): D64.9 - Anemia, unspecified Status: Chronic Assessment and Plan: Current H&H 8.7/27.1 Anemia labs stable at this time Could be a bit of dilution with the decrease in the labs Supplement as indicated Trend H&H Transfuse if hemoglobin less than 7 (5) Hypokalemia: Code(s): E87.6 - Hypokalemia Status: Acute Assessment and Plan: Potassium stable today at 3.1 Give 40 mEq oral, repeat Trend labs Stable (6) Asymptomatic bacteriuria: Code(s): R82.71 - Bacteriuria Status: Resolved Assessment and Plan: CT indicated 2 large bladder stones and frequent UTIs Urology consulted Will plan for outpatient treatment Continue trend urine output (7) Hypertension: Code(s): I10 - Essential (primary) hypertension Status: Acute Assessment and Plan: Current blood pressure 119/71 Continue home metoprolol Resume losartan Trend blood pressure Adjust therapy as indicated (8) Bladder calculus: Code(s): N21.0 - Calculus in bladder Status: Acute Assessment and Plan: CT indicated 2 large bladder stones and frequent UTIs Urology consulted Will plan for outpatient treatment Continue trend urine output (9) Coronary artery disease: Qualifiers: Associated angina: without angina Coronary Disease-Associated Artery/Lesion type: tribe artery [place] vs. transplanted heart: tribe heart Qualified Code(s): I25.10 - Atherosclerotic heart disease of tribe coronary artery without angina pectoris Code(s): I25.10 - Atherosclerotic heart disease of tribe coronary artery without angina pectoris Status: Chronic Assessment
[2022-02-07 08:28] LABS: Acanthocytes 1+ (NORMAL); Burr Cells 1+ (NORMAL); Platelet Estimate Adequate (Adequate); Schistocytes None Seen (NORMAL)
[2022-02-07 09:15] VITALS: BP 115/74; PULSE 88; O2SAT 95
[2022-02-07] MEDS: VENLAFAXINE HCL 75 MG TABLET 150 MG PO (09:18)
[2022-02-07] MEDS: CLOPIDOGREL BISULFATE 75 MG TABLET PO (09:18)
[2022-02-07] MEDS: FUROSEMIDE INJ 40 MG/4 ML VIAL IV PUSH (09:18)
[2022-02-07] MEDS: SENNA/DOCUSATE SODIUM TABLET 2 TAB PO (09:18)
[2022-02-07] MEDS: ASPIRIN 81 MG CHEWABLE TABLET PO (09:18)
[2022-02-07] MEDS: AMOXICILLIN/CLAVULANATE K 875-125 MG TAB 1 TABLET PO (09:18)
[2022-02-07] MEDS: METOPROLOL TARTRATE 25 MG TABLET PO (09:19)
[2022-02-07] MEDS: PANTOPRAZOLE 40 MG TABLET PO (09:19)
[2022-02-07] MEDS: buPROPion HCL XL (24 HR) 150 MG TABCR PO (09:19)
[2022-02-07] MEDS: LOSARTAN POTASSIUM 25 MG TABLET PO (09:19)
[2022-02-07] MEDS: polyethylene glycoL 3350 17 GM POWD.PACK PO (09:19)
[2022-02-07] MEDS: POTASSIUM CHLORIDE 20 MEQ PACKET (FOR LIQUID) 40 MEQ PO (09:24)
--- NOTE | 2022-02-07 13:09 | PC.NURSE ---
On 02/07/22, the student, [Lu Theodore], provided care and completed [facility] documentation on this patient. I have reviewed the student's documentation and agree with the findings.
== END 2022-02-07 14:03 | DRG 417 ==
LOC: ANHED 21:19 → ANH2MED 22:27
PROVIDERS: Emergency Medicine; Nurse Practitioner; Nurse Practitioner Family; Surgery; Admitting Provider Internal Medicine; Emergency Provider Emergency Medicine; PCP Internal Medicine; Visit Provider Nurse Practitioner Adult Health
PROC: 0FT44ZZ Resection of Gallbladder, Percutaneous Endoscopic Approach (ICD-10-PCS; CPT 47562; principal; 2022-02-01 10:00)
DX: K81.0 Acute cholecystitis (principal); A41.9 Sepsis, unspecified organism; I31.39 Other pericardial effusion (noninflammatory); T85.628A Displacement of other specified internal prosthetic devices, implants and grafts, initial encounter; K82.A1 Gangrene of gallbladder in cholecystitis; K66.0 Peritoneal adhesions (postprocedural) (postinfection); R62.7 Adult failure to thrive; R82.71 Bacteriuria; I73.9 Peripheral vascular disease, unspecified; I25.10 Atherosclerotic heart disease of native coronary artery without angina pectoris; I10 Essential (primary) hypertension; N21.0 Calculus in bladder; R00.0 Tachycardia, unspecified; F03.B0 Unspecified dementia, moderate, without behavioral disturbance, psychotic disturbance, mood disturbance, and anxiety; D64.9 Anemia, unspecified; N40.0 Benign prostatic hyperplasia without lower urinary tract symptoms; M54.9 Dorsalgia, unspecified; E87.6 Hypokalemia; I25.2 Old myocardial infarction; Z86.718 Personal history of other venous thrombosis and embolism; Z86.73 Personal history of transient ischemic attack (TIA), and cerebral infarction without residual deficits; Z79.82 Long term (current) use of aspirin; Z79.4 Long term (current) use of insulin; Z79.899 Other long term (current) drug therapy
CPT/HCPCS: 36415; 36569; 36600; 70450; 74176; 74177; 78226; 78227; 80048; 80053; 81001; 82140; 82375; 82607; 82746; 82805; 82948; 83036; 83050; 83605; 83690; 83735; 84132; 84439; 84443; 84466; 84484; 85025; 85027; 85610; 85730; 86140; 87040; 87086; 87088; 87106; 88304; 93005; 93970; 96361; 96374; 96376; 97161; 97165; 99285; A9270; A9537; C1751; C9113; J0690; J0696; J1650; J1940; J2270; J2405; J2543; J2704; J3010; J3475; J3480; J7030; J7040; J7120; Q9967

== ENCOUNTER 2022-04-15 23:30 | Emergency (ER) | payer OTHER, MEDICAID, SELFPAY ==
--- NOTE | ~2022-04-15 | XR_ITS ---
EXAMINATION: XR G tube replacement w image DATE: 04/16/2022 01:10 INDICATION: Mora catheter placed at G-tube site TECHNIQUE: Serial portable AP supine view of the abdomen and pelvis was obtained. COMPARISON: 02/02/2022 FINDINGS: Mora catheter tube tip projects of the body of the stomach. Injected contrast fills the st omach extends into the duodenum and proximal jejunum. No evident extravasated contrast. There are cou ple metallic clips project over the left upper quadrant near the likely catheter access site into the stomach. No dilated loops of bowel to suggest obstruction. Couple bladder stones project over the ce ntral pelvis. IMPRESSION: 1. Mora catheter tip and injected contrast in the body of the stomach. Reviewed, dictated and finalized at location A. PAD MAKER
[2022-04-15 23:30] VITALS: BP 128/75; PULSE 88; RESP 18; TEMP 36.4; O2SAT 99
--- NOTE | 2022-04-16 00:14 | ED.GENADULT ---
HPI - General Adult General Chief complaint: Unspecified Stated complaint: pulled out g tube Time Seen by Provider: 04/15/22 23:49 History of Present Illness HPI narrative: 72-year-old male presented the emergency department from [facility] for evaluation after pulling out his G-tube. Patient does have underlying dementia and is at his normal mental status. Patient was agitated earlier in the evening and it was thought that during his agitation he pulled out his G-tube. [facility] states that the G-tube was placed at [place] approximately 1 month ago. G-tube was placed because patient does have decreased p.o. intake but does still eat. They state he is not G-tube dependent. Size of G-tube is unknown. 8 [place] Mora catheter was placed through the ostomy site Related Data Home Medications Medication Instructions Recorded Confirmed acetaminophen 325 mg chewable 650 mg PO Q6H PRN Pain, Mild 12/11/21 02/28/22 tablet aspirin 81 mg chewable tablet 81 mg PO DAILY 12/11/21 02/28/22 atorvastatin 80 mg tablet 80 mg PO HS 12/11/21 02/28/22 clopidogrel 75 mg tablet 75 mg PO DAILY 12/11/21 02/28/22 cyclobenzaprine 5 mg tablet 5 mg PO TID 12/11/21 02/28/22 diclofenac sodium 1 % topical gel 1 ea topical DAILY 12/11/21 02/28/22 diflorasone 0.05 % topical cream 1 applic topical DAILY 12/11/21 02/28/22 insulin glargine 100 unit/mL (3 5 unit subcut HS 12/11/21 02/28/22 mL) subcutaneous pen pantoprazole 40 mg tablet,delayed 40 mg PO BID 12/11/21 02/28/22 release polyethylene glycol 3350 17 17 g PO DAILY 12/11/21 02/28/22 gram/dose oral powder quetiapine 25 mg tablet (Seroquel) 12.5 mg PO BID PRN Agitation 12/11/21 02/28/22 venlafaxine 75 mg tablet 150 mg PO DAILY 12/11/21 02/28/22 apixaban 5 mg tablet (Eliquis) 5 mg PO BID 12/30/21 02/28/22 linagliptin 5 mg tablet (Tradjenta) 5 mg PO DAILY 12/30/21 02/28/22 bupropion HCl 150 mg 24 hr tablet, 150 mg PO DAILY 01/23/22 02/28/22 extended release (Wellbutrin XL) carvedilol 25 mg tablet 25 mg PO BID 01/23/22 02/28/22 gabapentin 100 mg capsule 100 mg PO Q8H 01/23/22 02/28/22 losartan 25 mg tablet 25 mg PO DAILY 01/23/22 02/28/22 Allergies Allergy/AdvReac Type Severity Reaction Status Date / Time prednisone Allergy Severe COMA FOR 1 Verified 02/28/22 10:50 YEAR Review of Systems Review of Systems: CONSTITUTIONAL: Denies fever, chills, or sweats. EYES: Denies visual changes, redness, or discharge. ENT: Denies rhinorrhea, congestion, sore throat, or otalgia. CARDIOVASCULAR: Denies chest pain, palpitations, or edema. RESPIRATORY: Denies cough or dyspnea. GASTROINTESTINAL: See HPI GENITOURINARY: Denies dysuria or hematuria. SKIN: Denies rash or itching. MUSCULOSKELETAL: Denies back pain, joint pain, or myalgia. NEUROLOGIC: Denies headache, numbness, or weakness. [facility] Past Medical History Medical History Coronary artery disease [place]? 07/2021. 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 Pericardial effusion. Dementia DVT (deep venous thrombosis) Effusion, pericardium Essential hypertension History of GI bleed History of TIA (transient ischemic attack) Morbid obesity due to excess calories PAD (peripheral artery disease) Surgical History Surgical History History of ankle surgery Hx laparoscopic cholecystectomy 02/01/22 Family History Family History Father Family history of malignant neoplasm Mother Family history of heart disease in male family member before age 55 Hypertension Family history of cardiovascular disease Social History Social History Social History: the patient is from [facility] it is noted that he does not smoke. He is listed as being . He is retired. His Rachna
[2022-04-16 00:55] VITALS: BP 132/89
[2022-04-16 02:26] VITALS: PULSE 87; RESP 16; O2SAT 100
[2022-04-16 04:37] VITALS: PULSE 93; RESP 18; O2SAT 100
[2022-04-16 05:33] VITALS: BP 136/80
== END 2022-04-16 05:41 ==
PROVIDERS: Emergency Provider Emergency Medicine; PCP Family Medicine
DX: Z43.1 Encounter for attention to gastrostomy (principal); I25.10 Atherosclerotic heart disease of native coronary artery without angina pectoris; F03.90 Unspecified dementia, unspecified severity, without behavioral disturbance, psychotic disturbance, mood disturbance, and anxiety; I10 Essential (primary) hypertension; E11.51 Type 2 diabetes mellitus with diabetic peripheral angiopathy without gangrene; I73.9 Peripheral vascular disease, unspecified; E66.01 Morbid (severe) obesity due to excess calories; Z86.73 Personal history of transient ischemic attack (TIA), and cerebral infarction without residual deficits; Z86.718 Personal history of other venous thrombosis and embolism; Z79.01 Long term (current) use of anticoagulants; Z79.4 Long term (current) use of insulin; Z79.82 Long term (current) use of aspirin
CPT/HCPCS: 49450; 99284

== ENCOUNTER 2022-04-29 16:41 | Observation (INO) | payer OTHER, MEDICAID, SELFPAY ==
--- NOTE | ~2022-04-29 | CT_ITS ---
EXAMINATION: CT abdomen pelvis wo con DATE: 05/01/2022 17:46 INDICATION: bladder stones TECHNIQUE: Computed tomography (CT) of the abdomen and pelvis was performed without intravenous contr ast. Automated exposure control and iterative reconstruction technique were employed. The dose-length product was 1078.13 mGy-cm. COMPARISON: 02/02/2022. FINDINGS: Lower thorax: Small focus of reticulonodular opacities in the peripheral right upper lung. Calcified granulomas. Heavy coronary artery calcification. Cardiac megaly. Bilateral gynecomastia. Liver: Normal. Biliary/Gallbladder: Gallbladder is absent. 2.4 cm low-density collection in the gallbladder fossa. N o bile duct dilation. Pancreas: Mild fatty atrophy. Spleen: Granulomatous calcifications. Adrenals:No mass. Kidneys: Bilateral perinephric stranding. Mild left renal atrophy. Hemorrhagic or proteinaceous cyst in the right midpole. GI tract: Contrast fills the large intestine. No small or large bowel dilation. Appendix not visualiz ed. Several left colon diverticuli. No diverticulitis. Several short segment areas of sigmoid narrowi ng are present. Mesentery/Peritoneum: No ascites, mass, or free air. Retroperitoneum: No mass. Pelvis: The urinary bladder is mostly decompressed. 2.2 cm and 2.1 cm bladder stones. Soft Tissues: G-tube, in good position. Uncomplicated bilateral fat-containing inguinal hernias Bones: No acute osseous finding. IMPRESSION: 1. Mild right upper lung opacities may reflect atypical infection. 2. Moderate right pleural effusion. 3. 2.4 cm low-density collection in the gallbladder fossa may represent a resolving hematoma/abscess or biloma. 4. Several short segment areas of sigmoid narrowing are present, likely related to normal bowel contr action, consider colonoscopy if not performed recently. 5. Stable bladder stones. Reviewed, dictated and finalized at location K. LATORY COMPLIANCE MANAGER IMPRESSION: 1. Mild right upper lung opacities may reflect atypical infection. 2. Moderate right pleural effusion. 3. 2.4 cm low-density collection in the gallbladder fossa may represent a resol ving hematoma/abscess or biloma. 4. Several short segment areas of sigmoid narrowing are present, likely related to normal bowel contraction, consider colonoscopy if not performed recently. 5. Stable bladder stones.
--- NOTE | ~2022-04-29 | XR_ITS ---
EXAM: XR abdomen/kub 1V DATE: 05/01/2022 18:00 HISTORY: bladder stones . COMPARISON: CT abdomen and pelvis, same date. X-ray G-tube replacement 04/16/2022. FINDINGS: G-tube, in good position. Right pleural effusion. Normal bowel gas pattern. Contrast within the large intestine. No organomegaly. Atherosclerotic calcification. Bladder stones. Degenerative ch anges in the lumbar spine. IMPRESSION: No radiographic evidence of obstruction or ileus. Right pleural effusion. Stable bladder stones. Reviewed, dictated and finalized at location K. ITATIVE FIELD COORDINATOR IMPRESSION: No radiographic evidence of obstruction or ileus. Right pleural eff usion. Stable bladder stones.
--- NOTE | ~2022-04-29 | US_ITS ---
EXAMINATION: US arterial ankle brachial ind DATE: 05/01/2022 17:16 INDICATION: Stasis dermatitis and necrotic fourth toe wound.. TECHNIQUE: Segmental pressures and plethysmographic and Doppler waveforms of the brachial and lower e xtremity arteries were obtained. COMPARISON: None. FINDINGS: Right and left brachial artery pressures of 104 mm Hg and 109 mm Hg, respectively, are concordant (no rmal difference <= 30 mmHg). The right ankle-brachial index (MICHELE) is 1.24 (normal >= 0.9-1.0). The right great toe-brachial index (TBI) is 0.05 (normal >= 0.65). Arterial Doppler waveforms are biphasic with brisk systolic upstrokes at both right posterior tibial and dorsalis pedis arteries. The left MICHELE is 1.42. The left TBI is 0.13. Arterial Doppler waveforms are biphasic with brisk systol ic upstrokes at both left posterior tibial and dorsalis pedis arteries. IMPRESSION: 1. Normal bilateral ABIs but with severely decreased bilateral TBI's. This could be due to severe art erial occlusive disease below level of the ankles or due to artifactual elevation and ankle pressures resulting from vessel wall calcification. Reviewed, dictated and finalized at location A. DE SALES PROFESSIONAL IMPRESSION: 1. Normal bilateral ABIs but with severely decreased bilateral TBI's. This coul d be due to severe arterial occlusive disease below level of the ankles or due to artifactual elevation and ankle pressures resulting from vessel wall calcifi cation.
--- NOTE | ~2022-04-29 | MR_ITS ---
EXAMINATION: MR foot RT wo con DATE: 05/01/2022 16:11 INDICATION: Necrotic right fourth toe TECHNIQUE: Magnetic resonance imaging (MRI) of the right fore/mid foot was performed without intraven ous contrast. Sequences included sagittal T1-weighted FSE, sagittal fluid sensitive FSE STIR, coronal PD-weighted FS FSE, coronal T1-weighted FSE, axial PD-weighted FS FSE, and axial PD-weighted FSE. Omi ramsey returned for additional axial, sagittal and coronal T1-weighted FSE and fluid sensitive FSE STI R. COMPARISON: None FINDINGS: Evaluation is limited by motion artifact on multiple sequences and inhomogeneous fat saturation. Age- indeterminate ununited fracture the proximal metadiaphysis of the right fifth proximal phalanx with o ne shaft width plantar displacement and 70 degree dorsal angulation. There is no significant surround ing soft tissue swelling and there appear to be low signal intensity margins to fracture plane sugges ting this is chronic and nonunited. There are multiple geographic regions of increased fluid signal a nd decreased T1 marrow fat signal which would be consistent with osteomyelitis or other pathologic ma rrow replacing process. This includes the fifth distal phalanx and head of the fifth proximal phalanx , the fourth distal phalanx, portions of the third middle and distal phalanges, the second proximal, middle and distal phalanges, the first distal phalanx portion of the first proximal phalanx. There ar e no joint effusions, abscess or other abnormal loculated fluid collections in the visualized fore an d midfoot. There is prominent fatty atrophy of the intrinsic musculature of the foot. IMPRESSION: 1. Geographic regions of concordant decreased T1 and increased fluid signal involving portions of the majority of the phalanges in the right foot as detailed above which could be consistent with osteomy elitis although there is less than the expected surrounding soft tissue edema. Differential for for s uch signal changes would also include aseptic osteonecrosis, erosions and neoplasia although the latt er would be rare in a single phalanx much less multiple phalanges. Consider correlation with plain ra diographs with comparison to prior imaging radiographs from 12/21/15 2. Likely chronic nonunited fracture at the base of the fifth proximal phalanx. Reviewed, dictated and finalized at location A. PHYSICS ENGINEER IMPRESSION: 1. Geographic regions of concordant decreased T1 and increased fluid signal inv olving portions of the majority of the phalanges in the right foot as detailed above which could be consistent with osteomyelitis although there is less than the expected surrounding soft tissue edema. Differential for for such signal ch anges would also include aseptic osteonecrosis, erosions and neoplasia although the latter would be rare in a single phalanx much less multiple phalanges. 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 Likely chronic nonunited fracture at the base of the fifth proximal phalanx.
--- NOTE | ~2022-04-29 | XR_ITS ---
EXAMINATION: XR chest 1V portable DATE: 04/29/2022 17:12 INDICATION: Chest pain. TECHNIQUE: A single frontal view of the chest was obtained. COMPARISON: Chest single view 12/30/2021 FINDINGS: A calcified left lung nodule is consistent with old granulomatous disease. No pleural effus ion or pneumothorax. The heart size is normal. IMPRESSION: 1. No acute cardiopulmonary disease. Reviewed, dictated and finalized at location A. NSED TAX CONSULTANT
[2022-04-29 16:44] VITALS: BP 119/78; PULSE 120; RESP 16; TEMP 36.3
--- NOTE | 2022-04-29 16:48 | ECG_ITS ---
Measurements Intervals [place] Rate: 115 P: 96 MN: 184 QRS: -5 QRSD: 99 T: 67 QT: 367 QTc: 509 Interpretive Statements SINUS TACHYCARDIA LOW QRS VOLTAGE IN PRECORDIAL LEAD INFERIOR INFARCT, AGE INDETERMINATE ANTEROLATERAL INFARCT, AGE INDETERMINATE BORDERLINE ST-T WAVE ABNORMALITY- HIGH LATERAL LEADS BASELINE ARTIFACT- II, III, AVL, AVF, V1-V3 ABNORMAL ECG COMPARED TO ECG 01/31/2022 10:28:03 ANTEROLATERAL INFARCT, AGE INDETERMINATE NOW PRESENT Electronically Signed On 04-29-2022 19:43:30 PEST MANAGEMENT SUPERVISOR by Andrea Yanes D.O.
--- NOTE | 2022-04-29 16:55 | ED.CHESTPAIN ---
HPI - Chest Pain General Chief Complaint: Chest Pain Stated Complaint: CHEST PAIN Source: RN notes reviewed History of Present Illness HPI narrative: Patient presents emergency department from [facility] via EMS for chest pain. Patient states chest pain began prior to arrival the pain is located in the left lower chest and was described as sharp and stabbing states the pain did not radiate patient states the pain is resolved at this time states he did have mild shortness of breath of the symptoms but that is also now resolved he denies any fevers or chills abdominal pain nausea vomiting or any other symptoms. States he did recently have a PEG tube placed Related Data Home Medications Medication Instructions Recorded Confirmed acetaminophen 325 mg chewable 650 mg PO Q6H PRN Pain, Mild 12/11/21 02/28/22 tablet aspirin 81 mg chewable tablet 81 mg PO DAILY 12/11/21 02/28/22 atorvastatin 80 mg tablet 80 mg PO HS 12/11/21 02/28/22 clopidogrel 75 mg tablet 75 mg PO DAILY 12/11/21 02/28/22 diclofenac sodium 1 % topical gel 1 ea topical DAILY 12/11/21 02/28/22 diflorasone 0.05 % topical cream 1 applic topical DAILY 12/11/21 02/28/22 polyethylene glycol 3350 17 17 g PO DAILY 12/11/21 02/28/22 gram/dose oral powder venlafaxine 75 mg tablet 150 mg PO DAILY 12/11/21 02/28/22 bupropion HCl 150 mg 24 hr tablet, 75 mg PO DAILY 01/23/22 02/28/22 extended release (Wellbutrin XL) amino ac-protein hydrolys 11 ea feeding tube 04/29/22 gram-40 kcal/45 mL tube feed liquid pack (Prosource TF) buspirone 5 mg tablet mg 04/29/22 desipramine 10 mg tablet mg 04/29/22 esomeprazole magnesium 40 mg mg 04/29/22 04/29/22 capsule,delayed release hydroxyzine HCl 25 mg tablet mg 04/29/22 nutritional supplements 0.06 ea feeding tube 04/29/22 gram-1.5 kcal/mL oral liquid (Osmolite 1.5 [place]) ramelteon 8 mg tablet mg PO PRN Sleep 04/29/22 Allergies Allergy/AdvReac Type Severity Reaction Status Date / Time Penicillins Allergy Unknown Verified 04/29/22 17:09 Review of Systems Review of Systems: Gen.: Denies fevers or chills ENT: Denies congestion Respiratory: Reports shortness of breath CV: See HPI GI: Denies abdominal pain nausea, emesis or diarrhea Musculoskeletal: Denies back pain or muscle pain Neuro: Denies numbness, tingling, weakness or focal weakness Skin: Denies rash Except as documented, all other systems reviewed and negative [facility] Past Medical History Medical History Coronary artery disease [place]? 07/2021. 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 Pericardial effusion. Dementia DVT (deep venous thrombosis) Effusion, pericardium Essential hypertension History of GI bleed History of TIA (transient ischemic attack) Morbid obesity due to excess calories PAD (peripheral artery disease) Surgical History Surgical History History of ankle surgery Hx laparoscopic cholecystectomy 02/01/22 Family History Family History Father Family history of malignant neoplasm Mother Family history of heart disease in male family member before age 55 Hypertension Family history of cardiovascular disease Social History Social History Social History: the patient is from [facility] it is noted that he does not smoke. He is listed as being . He is retired. 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 He has a Jen white listed as a child. Code status full code Smoking status: Never smoker Second hand tobacco smoke exposure: Yes Alcohol intake: never Substance use: never Spiritual care concerns: No Exam Narrative: APPEARANCE: No acute distress, nontoxic, resting in bed EYES: EOMI HEENT: Normocephalic, atraumatic, OMM RESPIRATORY: No
[2022-04-29 18:15] LABS: Troponin I < 0.012 ng/mL (0.000-0.034)
[2022-04-29 18:19] LABS: Basophils Percent Auto 0.4 % (0.2-1.2); Eosinophils Absolute Auto 0.7 K/mm3 (0-0.3); Eosinophils Percent Auto 5.7 % (0-4.4); Hematocrit 35.5 % (42.0-52.0); Hemoglobin 12.4 g/dL (14.0-18.0); Immature Granulocyte Absolute 0.04 K/mm3 (0.00-0.031); Immature Granulocyte Percent A 0.4 % (0-0.5); Lymphocytes Absolute Auto 3.57 K/mm3 (0.9-3.2); Lymphocytes Percent Auto 31.4 % (18.3-44.2); Mean Corpuscular HGB Conc 34.9 g/dl (32-36); Mean Corpuscular Hemoglobin 32.7 pg (26-34); Mean Corpuscular Volume 93.7 fl (80-100); Mean Platelet Volume 9.7 fl (7.4-10.4); Monocytes Absolute Auto 1.4 K/mm3 (0.1-0.6); Monocytes Percent Auto 11.9 % (2.6-8.5); Neutrophils Absolute Auto 5.7 K/mm3 (1.3-6.7); Neutrophils Percent Auto 50.2 % (45.5-73.1); Platelet Count Result 410 k/mm3 (150-375); Red Blood Count 3.79 M/mm3 (4.6-6.20); Red Cell Distribution Width 23.5 % (11.5-14.5); White Blood Count 11.4 K/mm3 (4.5-10.0)
[2022-04-29 18:24] LABS: Anisocytosis 1+ (NORMAL); Ovalocytes 1+ (NORMAL); Platelet Estimate Increased (Adequate); Schistocytes None Seen (NORMAL); Target Cells 1+ (NORMAL)
[2022-04-29] MEDS: SODIUM CHLORIDE 0.9% IV 1,000 ML 999 ML IV CONT (18:25)
[2022-04-29 18:36] LABS: Alanine Aminotransferase 15 U/L (6-50); Albumin Level 3.9 g/dL (3.5-5.1); Alkaline Phosphatase 108 U/L (38-126); Anion Gap 7 mmol/L (8-16); Aspartate Amino Transferase 32 U/L (17-59); Bilirubin,Total 0.8 mg/dL (0.2-1.3); Blood Urea Nitrogen 17 mg/dL (9-20); Calcium 9.1 mg/dL (8.4-10.2); Carbon Dioxide 31 mmol/L (22-30); Chloride 95 mmol/L (98-107); Estimated Glomerular Filt Rate > 60; Glucose 97 mg/dL (65-110); Lipase 45 U/L (23-300); Potassium 3.4 mmol/L (3.4-5.0); Sodium 133 mmol/L (137-145)
[2022-04-29 19:33] LABS: INR 1.1
[2022-04-29 19:34] LABS: Partial Thromboplastin Time 31.7 SECONDS (22.3-36.8)
[2022-04-29 19:35] LABS: Influenza A QL RT-PCR Negative (Negative); Influenza B QL RT-PCR Negative (Negative); RSV RNA, RT-PCR Negative (Negative); SARS-CoV-2 RNA PCR Negative
--- NOTE | 2022-04-29 20:15 | PM.IMHP ---
H&P: HPI History of Present Illness Date/Time: 04/29/22 20:15 Chief Complaint: Chest pain. Narrative: This is a 72-year-old male with history of stroke, coronary artery disease, hypertension, hyperlipidemia, peripheral vascular disease, and insulin-dependent diabetes who presented to the emergency department via EMS from [facility] for evaluation of chest pain. Given the patient's dementia and short-term memory loss, he is not an accurate historian and some the following is obtained via a review of his electronic medical records which are limited. The patient tells me that he woke up at about 06:30 this morning with left anterior chest pain that he describes as a squeezing sensation. It does not radiate and he has not noticed any aggravating or alleviating factors. He felt perhaps a bit short of breath when the pain occurred but nothing significant. He says this pain feels exactly like the pain he had with his 5 prior MIs. He denies associated lightheadedness, dizziness, sweats, nausea, and vomiting. Currently he is resting comfortably and is not having any further chest pain. His blood pressure was stable on arrival to the emergency department. Initial troponin was less than 0.012. Today's EKG showed evidence of an age-indeterminate anterolateral infarct which is new compared to tracing in January 2022. Review of Systems Review of Systems: Negative except for as per HPI. [facility] Past Medical History Medical History (Updated 04/29/22 @ 20:54 by Lis Bergman PA-C) Chronic anemia Coronary artery disease [place]? 07/2021. 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 Pericardial effusion. Deep venous thrombosis Dementia Effusion, pericardium Essential hypertension History of GI bleed Morbid obesity due to excess calories Peripheral arterial disease Transient ischemic attack Surgical History Surgical History (Updated 04/29/22 @ 20:46 by Lis Bergman PA-C) History of ankle surgery History of cardiac catheterization History of gastrostomy tube placement History of laparoscopic cholecystectomy (02/01/22) Family History Family History Father Family history of malignant neoplasm Mother Family history of heart disease in male family member before age 55 Hypertension Family history of cardiovascular disease Social History Social History (Updated 04/29/22 @ 20:47 by Lis Bergman PA-C) Social History: Surrogate medical decision maker: Rahcna Almaraz, spouse. Code status: Full code. Smoking status: Never smoker Second hand tobacco smoke exposure: Yes Alcohol intake: never Substance use: never Additional living arrangements comments: Resident at [facility]. Spiritual care concerns: No Meds Home Medications and Allergies Home Medications Medication Instructions Recorded Confirmed Type acetaminophen 325 mg chewable 650 mg PO Q6H PRN Pain, Mild 12/11/21 02/28/22 History tablet aspirin 81 mg chewable tablet 81 mg PO DAILY 12/11/21 02/28/22 History atorvastatin 80 mg tablet 80 mg PO HS 12/11/21 02/28/22 History clopidogrel 75 mg tablet 75 mg PO DAILY 12/11/21 02/28/22 History diclofenac sodium 1 % topical gel 1 ea topical DAILY 12/11/21 02/28/22 History diflorasone 0.05 % topical cream 1 applic topical DAILY 12/11/21 02/28/22 History polyethylene glycol 3350 17 17 g PO DAILY 12/11/21 02/28/22 History gram/dose oral powder venlafaxine 75 mg tablet 150 mg PO DAILY 12/11/21 02/28/22 History metoprolol tartrate 25 mg tablet 12.5 mg PO BID #21 tabs 01/07/22 02/28/22 Rx tamsulosin 0.4 mg capsule 0.4 mg PO HS #30 caps 01/07/22 02/28/22 Rx bupropion HCl 150 mg 24 hr tablet, 75 mg PO DAILY 01/23/22 02/28/22 History extended release (Wellbutrin XL) amino ac-protein hydrolys 11 ea feeding tube 04/29/22 History gram-40 kcal/45 mL tube feed liquid pack (Prosource TF) nandini
[2022-04-29 20:47] LABS: Troponin I < 0.012 ng/mL (0.000-0.034)
[2022-04-29 21:30] VITALS: BP 121/69; PULSE 100; RESP 20; TEMP 36.4; O2SAT 99; BMI 26.4
--- NOTE | 2022-04-29 21:50 | ADMGEN ---
This patient, Juan Pablo Almaraz, was admitted to IMU Room 210-01. Patient/family oriented to hospital policies and general routines including ID bracelet, bed and alarms, visiting hours, pain management, procedures, bathroom and other care routines, personal items, smoking policy, room service/diet, and visiting hours. Information on how to activate the Rapid Response Team has been discussed. Patient/Family are encouraged to report perceived risks to care and to ask questions if they do not understand what they are told or what they should do.
[2022-04-29 22:00] VITALS: PULSE 98
[2022-04-29] MEDS: SODIUM CHLORIDE 0.9% IV 1,000 ML 80 ML IV CONT (22:04)
[2022-04-29 23:17] VITALS: BP 126/63; PULSE 101; RESP 18; TEMP 36.2; O2SAT 99
[2022-04-30] VITALS (18 sets, daily range): BP systolic 93–138; BP diastolic 55–81; PULSE 88–104; RESP 18–21; TEMP 36.4–36.8; O2SAT 97–99; BMI 26.4
[2022-04-30 01:06] LABS: Troponin I < 0.012 ng/mL (0.000-0.034)
[2022-04-30 05:22] LABS: Alanine Aminotransferase 13 U/L (6-50); Albumin Level 3.2 g/dL (3.5-5.1); Alkaline Phosphatase 100 U/L (38-126); Anion Gap 5 mmol/L (8-16); Aspartate Amino Transferase 22 U/L (17-59); Bilirubin,Total 0.7 mg/dL (0.2-1.3); Blood Urea Nitrogen 16 mg/dL (9-20); Calcium 8.7 mg/dL (8.4-10.2); Carbon Dioxide 29 mmol/L (22-30); Chloride 99 mmol/L (98-107); Estimated CRCL calculation 92 ml/min; Estimated Glomerular Filt Rate > 60; Glucose 97 mg/dL (65-110); Potassium 3.1 mmol/L (3.4-5.0); Sodium 133 mmol/L (137-145)
[2022-04-30 05:54] LABS: Basophils Percent Auto 0.4 % (0.2-1.2); Eosinophils Percent Auto 10.2 % (0-4.4); Hematocrit 30.1 % (42.0-52.0); Hemoglobin 10.8 g/dL (14.0-18.0); Immature Granulocyte Absolute 0.03 K/mm3 (0.00-0.031); Immature Granulocyte Percent A 0.3 % (0-0.5); Lymphocytes Absolute Auto 3.19 K/mm3 (0.9-3.2); Lymphocytes Percent Auto 33.6 % (18.3-44.2); Mean Corpuscular HGB Conc 35.9 g/dl (32-36); Mean Corpuscular Volume 97.4 fl (80-100); Mean Platelet Volume 9.9 fl (7.4-10.4); Monocytes Absolute Auto 1.1 K/mm3 (0.1-0.6); Monocytes Percent Auto 11.5 % (2.6-8.5); Neutrophils Absolute Auto 4.2 K/mm3 (1.3-6.7); Platelet Count Result 350 k/mm3 (150-375); Red Blood Count 3.09 M/mm3 (4.6-6.20); Red Cell Distribution Width 23.7 % (11.5-14.5); White Blood Count 9.5 K/mm3 (4.5-10.0)
[2022-04-30 06:38] LABS: Anisocytosis 2+ (NORMAL); Platelet Estimate Adequate (Adequate); Schistocytes None Seen (NORMAL)
--- NOTE | 2022-04-30 09:05 | PM.IMPN ---
Progress Note: A&P Assessment and Plan (1) Chest pain: Code(s): R07.9 - Chest pain, unspecified Status: Acute Assessment and Plan: cardio consult, monitor telemetry, trend troponins (2) Coronary artery disease: Qualifiers: Associated angina: without angina Coronary Disease-Associated Artery/Lesion type: [place] artery [place] vs. transplanted heart: [place] heart Qualified Code(s): I25.10 - Atherosclerotic heart disease of [place] coronary artery without angina pectoris Code(s): I25.10 - Atherosclerotic heart disease of [place] coronary artery without angina pectoris Status: Chronic Assessment and Plan: cont home meds (3) Chronic anemia: Code(s): D64.9 - Anemia, unspecified Status: Acute Assessment and Plan: stable, hgb 10.8 today, baseline fluctuates between 8-12 appears to be anemia of chronic disease with possible h/o hemolytic anemia, seen by Dr Parmar in the past (4) Dementia: Qualifiers: Dementia behavioral or psychological symptom: without behavioral, psychotic, or mood disturbance or anxiety Dementia severity: moderate Dementia type: unspecified type Qualified Code(s): F03.B0 - Unspecified dementia, moderate, without behavioral disturbance, psychotic disturbance, mood disturbance, and anxiety Code(s): F03.90 - Unspecified dementia, unspecified severity, without behavioral disturbance, psychotic disturbance, mood disturbance, and anxiety Status: Chronic Assessment and Plan: stable, cont home meds (5) Essential hypertension: Code(s): I10 - Essential (primary) hypertension Status: Acute Assessment and Plan: stable, cont home meds (6) Bladder calculus: Code(s): N21.0 - Calculus in bladder Status: Acute Assessment and Plan: pain with urination, consult urology Plan DVT prophylaxis with SCDs GI prophylaxis not indicated Code status full code Subjective Date/time seen: 04/30/22 09:05 Interval history: No overnight events noted. No shortness of breath. No nausea, vomiting or diarrhea. No fevers or chills. Still complaining of chest pain intermittently. Review of Systems Review of Systems: 12 point review of systems was assessed and was negative except as noted in the HPI Exam Narrative: General: No acute distress, alert and oriented per baseline HEENT: Atraumatic, normocephalic, mucous membranes moist CV: Regular rate and rhythm, S1, S2 Lungs: Clear to auscultation bilaterally, no rales or crackles noted, no wheezes, good air entry Abdomen: Soft, nontender, nondistended Extremities: Normal to inspection Skin: Scattered petechial rash noted on B/L UE, brawny venous stasis dermatitis on B/L LE Psych: Euthymic, normal affect Objective Data Vital Signs Vital Signs: Vital Signs - 24 hr 04/29/22 16:44 04/29/22 16:45 04/29/22 21:30 Temperature 97.4 F L 97.6 F Pulse Rate 120 H 100 Respiratory Rate 16 20 Blood Pressure 119/78 121/69 Pulse Oximetry 99 Oxygen Delivery Room Air Room Air 04/29/22 23:17 04/29/22 22:00 04/30/22 00:00 Temperature 97.2 F L Pulse Rate 101 H 98 98 Respiratory Rate 18 Blood Pressure 126/63 Pulse Oximetry 99 Oxygen Delivery 04/30/22 00:00 04/30/22 03:40 04/30/22 02:00 Temperature 97.6 F Pulse Rate 98 94 96 Respiratory Rate 18 20 Blood Pressure 137/81 Pulse Oximetry 99 98 Oxygen Delivery Room Air 04/30/22 04:00 04/30/22 04:00 04/30/22 06:00 Temperature Pulse Rate 93 93 91 Respiratory Rate 20 Blood Pressure Pulse Oximetry 98 Oxygen Delivery Room Air 04/30/22 08:00 04/30/22 08:00 Temperature 97.8 F Pulse Rate 101 H 101 H Respiratory Rate 21 H 21 H Blood Pressure 120/66 Pulse Oximetry 98 98 Oxygen Delivery Room Air Intake/Output Intake/Output: Intake & Output 04/27/22 04/28/22 04/29/22 04/30/22 23:59 23:59 23:59 23:59 Intake Total 1000 Balance
[2022-04-30] MEDS: busPIRone HCL 5 MG TABLET PO ×2 (10:58→17:03)
[2022-04-30] MEDS: ARTIFICIAL TEARS OPHTH SOLN 15 ML BOTTLE 1 DROP EACH EYE ×2 (10:58→17:03)
[2022-04-30] MEDS: CLOPIDOGREL BISULFATE 75 MG TABLET PO (10:59)
[2022-04-30] MEDS: VENLAFAXINE HCL 75 MG TABLET PO ×2 (11:00→17:00)
[2022-04-30] MEDS: METOPROLOL TARTRATE 12.5 MG TABLET PO ×2 (11:00→21:36)
[2022-04-30] MEDS: DESIPRAMINE HCL 10 MG TABLET PO ×2 (11:00→17:00)
[2022-04-30] MEDS: ASPIRIN 81 MG CHEWABLE TABLET PO (11:00)
[2022-04-30] MEDS: LIDOCAINE 5% PATCH 1 PATCH TOPICAL (11:04)
--- NOTE | 2022-04-30 14:45 | PM.CNCAR ---
Assessment and Plan Assessment and plan (1) Chest pain: Code(s): R07.9 - Chest pain, unspecified Status: Acute Assessment and Plan: History of CAD s/p complex PCI at [facility] in July of 2021. He presents now with atypical sounding chest pain. There is no objective evidence of ACS including negative serial troponin levels and EKG without acute ischemic changes. Continue medical therapy for his CAD with ASA, statin, and plavix. No further cardiac work up is recommended at this time. History of Present Illness History of Present Illness Consult date/time: 04/30/22 14:45 Requesting physician: Carisa Robin, Consult reason: chest pain Reason For Visit: CHEST PAIN Narrative: Mr. Almaraz is a 72-year-old male with a past medical history significant for coronary artery disease status post complicated coronary intervention (3.0 x 8 mm 3.0 x 12 mm Resolute drug-eluting stent and 3.0 x 40 mm drug-eluting stent of the RCA 08/11/21) at [facility] where vessel dissection of the RCA was noted. He also has a history of vascular dementia. The patient presents to the hospital now with a chief complaint of chest pain. Patient states that the pain started yesterday morning around 5:30 a.m. and was continuous until about 3:00 p.m. when he finally called 911 and presented to the hospital. He describes the pain as a burning sensation. The pain did not radiate to any other location. He states that the pain subsided when he was in the ambulance and has had couple of recurrences of chest pain since being admitted. He is currently chest pain-free. He states that at the time of his chest pain onset he was engaged in an argument with some family members which caused him to feel very angry and stressed. He also tells me that his daughter yesterday. He denies missing any doses of his medication but also states that he can not be sure. Currently, he is resting comfortably in his bed and denies any complaints. Review of Systems Review of Systems: All systems reviewed & are unremarkable except as noted in HPI and below PMFSH Past Medical History Medical History Chronic anemia Coronary artery disease MS? 07/2021. 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 Pericardial effusion. Deep venous thrombosis Dementia Effusion, pericardium Essential hypertension History of GI bleed Morbid obesity due to excess calories Peripheral arterial disease Transient ischemic attack Surgical History Surgical History History of ankle surgery History of cardiac catheterization History of gastrostomy tube placement History of laparoscopic cholecystectomy (02/01/22) Family History Family History Father Family history of malignant neoplasm Mother Family history of heart disease in male family member before age 55 Hypertension Family history of cardiovascular disease Social History Social History Social History: Surrogate medical decision maker: Rachna Almaraz, spouse. Code status: Full code. Smoking status: Never smoker Second hand tobacco smoke exposure: Yes Alcohol intake: former Substance use: never Substance use type: does not use Lack of Transportation: No Lack of Food: Never True Current Housing: I Have Housing Concerned About Future Housing: No Difficulty Paying Gas/Electric Bills: No Difficulty Paying for Meds: No Currently Unemployed: No Education: High School Diploma/GED Difficulty w/ Childcare or Family Care: No Additional living arrangements comments: Resident at [facility]. Spiritual care concerns: No Meds Home Medications and Allergies Home Medications Medication Instructions Recorded Confirmed Type acetaminophen 325 mg c
[2022-04-30] MEDS: SODIUM CHLORIDE 0.9% IV 1,000 ML 80 ML IV CONT (17:00)
[2022-04-30] MEDS: buPROPion HCL 75 MG TABLET PO (17:02)
[2022-04-30] MEDS: ATORVASTATIN 40 MG TABLET 80 MG PO (21:36)
[2022-04-30] MEDS: TAMSULOSIN HCL 0.4 MG CAPSULE PO (21:37)
[2022-05-01] VITALS (18 sets, daily range): BP systolic 95–136; BP diastolic 52–69; PULSE 70–127; RESP 18–21; TEMP 35.9–36.7; O2SAT 97–100
[2022-05-01] MEDS: LANSOPRAZOLE ORAL SUSP 30 MG/10 ML ORAL.SUSP FEED TUBE (06:29)
[2022-05-01] MEDS: ASPIRIN 81 MG CHEWABLE TABLET PO (08:26)
[2022-05-01] MEDS: METOPROLOL TARTRATE 12.5 MG TABLET PO ×2 (08:26→20:57)
[2022-05-01] MEDS: buPROPion HCL 75 MG TABLET PO (08:26)
[2022-05-01] MEDS: DESIPRAMINE HCL 10 MG TABLET PO ×2 (08:26→19:00)
[2022-05-01] MEDS: busPIRone HCL 5 MG TABLET PO ×2 (08:27→19:00)
[2022-05-01] MEDS: VENLAFAXINE HCL 75 MG TABLET PO ×2 (08:27→18:59)
[2022-05-01] MEDS: CLOPIDOGREL BISULFATE 75 MG TABLET PO (08:28)
[2022-05-01] MEDS: ARTIFICIAL TEARS OPHTH SOLN 15 ML BOTTLE 1 DROP EACH EYE ×3 (08:28→20:57)
[2022-05-01] MEDS: LIDOCAINE 5% PATCH 1 PATCH TOPICAL (08:28)
--- NOTE | 2022-05-01 12:11 | PCNFU ---
Nutrition Follow-Up Complete: Severe malnutrition related to loss of appetite as evidenced by 26% weight loss/6 months, poor intake <75% needs >1 month; need for partial tube feeding. Goal:Meet estimated nutrition needs Pt current nutrition is Minced and moist level 5, Tube feeding: Osmolite 1.5 . Nutrition recommendation: Continue with current plan of care. Last recorded weight is 81.3 kg. Bowel Motility: +BM 04/30 Labs Reviewed: Hgb:10.8, HCT:30.1, Alb:3.2, NA:133, K:3.1, Cr:0.6 Meds Noted: miralax Skin: WNL Additional Notes: pt reports little appetite and does not like the food much. Tube feeding ordered and running - Osmolite 1.5 bolus 200 ml q 4 hours total: 1800 kcals, 75 g protein, 914 ml free water. Prosource TF modular additional 20 g protein for total 95 g protein/day. Flush 100 ml free water with each bolus for total 1615 ml free water/day. Agreed with diet orders. Monitoring diet orders, tube feeding orders, plan of care, weights, labs, intakes Follow up Saturday and Saturday
--- NOTE | 2022-05-01 13:58 | PM.IMPN ---
Progress Note: A&P Assessment and Plan (1) Necrosis of toe: Code(s): I96 - Gangrene, not elsewhere classified Status: Acute Assessment and Plan: necrosis of right 4th toe, MRI, ESR, CRP, pending (2) Bladder calculus: Code(s): N21.0 - Calculus in bladder Status: Acute Assessment and Plan: pain with urination, consult urology urinalysis pending (3) Chest pain: Code(s): R07.9 - Chest pain, unspecified Status: Acute Assessment and Plan: cardio consult, monitor telemetry, trend troponins Cardiology recommended aspirin, statin Plavix and no further workup, okay to discharge from their standpoint (4) Coronary artery disease: Qualifiers: Associated angina: without angina Coronary Disease-Associated Artery/Lesion type: [place] artery [place] vs. transplanted heart: [place] heart Qualified Code(s): I25.10 - Atherosclerotic heart disease of [place] coronary artery without angina pectoris Code(s): I25.10 - Atherosclerotic heart disease of [place] coronary artery without angina pectoris Status: Chronic Assessment and Plan: cont home meds (5) Chronic anemia: Code(s): D64.9 - Anemia, unspecified Status: Acute Assessment and Plan: stable, hgb 10.8 today, baseline fluctuates between 8-12 appears to be anemia of chronic disease with possible h/o hemolytic anemia, seen by Dr Parmar in the past (6) Dementia: Qualifiers: Dementia behavioral or psychological symptom: without behavioral, psychotic, or mood disturbance or anxiety Dementia severity: moderate Dementia type: unspecified type Qualified Code(s): F03.B0 - Unspecified dementia, moderate, without behavioral disturbance, psychotic disturbance, mood disturbance, and anxiety Code(s): F03.90 - Unspecified dementia, unspecified severity, without behavioral disturbance, psychotic disturbance, mood disturbance, and anxiety Status: Chronic Assessment and Plan: stable, cont home meds (7) Essential hypertension: Code(s): I10 - Essential (primary) hypertension Status: Acute Assessment and Plan: stable, cont home meds Plan DVT prophylaxis with SCDs GI prophylaxis not indicated Code status full code Subjective Date/time seen: 05/01/22 13:58 Interval history: No overnight events noted. No shortness of breath. No nausea, vomiting or diarrhea. No fevers or chills. Chest pain resolved. Review of Systems Review of Systems: 12 point review of systems was assessed and was negative except as noted in the HPI Exam Narrative: General: No acute distress, alert and oriented per baseline HEENT: Atraumatic, normocephalic, mucous membranes moist CV: Regular rate and rhythm, S1, S2 Lungs: Clear to auscultation bilaterally, no rales or crackles noted, no wheezes, good air entry Abdomen: Soft, nontender, nondistended Extremities: Normal to inspection Skin: Scattered petechial rash noted on B/L UE, brawny venous stasis dermatitis on B/L LE, necrotic lesion on right 4th toe noted Psych: Euthymic, normal affect Objective Data Vital Signs Vital Signs: Vital Signs - 24 hr 04/30/22 16:27 04/30/22 14:00 04/30/22 16:00 Temperature 97.8 F Pulse Rate 95 88 96 Respiratory Rate 20 Blood Pressure 101/56 L Pulse Oximetry 98 Oxygen Delivery 04/30/22 16:00 04/30/22 18:00 04/30/22 20:00 Temperature 98.3 F Pulse Rate 95 98 102 H Respiratory Rate 20 Blood Pressure 101/55 L Pulse Oximetry 98 Oxygen Delivery Room Air 04/30/22 21:36 04/30/22 20:00 04/30/22 20:00 Temperature Pulse Rate 90 90 90 Respiratory Rate 20 Blood Pressure Pulse Oximetry 98 Oxygen Delivery Room Air 04/30/22 22:00 04/30/22 23:23 05/01/22 00:00 Temperature 97.7 F Pulse Rate 103 H 104 H 100 Respiratory Rate 20 Blood Pressure 93/60 L Pulse Oximetry 99 Oxygen Delivery
[2022-05-01 15:37] LABS: CRP 8.7 mg/dL (<1.0)
--- NOTE | 2022-05-01 15:54 | WPDURCON ---
Assessment and Plan Assessment and plan (1) BPH (benign prostatic hyperplasia): Code(s): N40.0 - Benign prostatic hyperplasia without lower urinary tract symptoms Status: Acute Assessment and Plan: Continue Tamsulosin, will add Finasteride d/t known BPH and bladder stones. (2) Bladder calculus: Code(s): N21.0 - Calculus in bladder Status: Acute Assessment and Plan: Will re-evaluate with a repeat CT scan/KUB. Secondary to bladder outlet obstruction. (3) Dysuria: Code(s): R30.0 - Dysuria Status: Acute Assessment and Plan: Urinalysis pending, culture to reflex if necessary. If UA is suggestive of a UTI, I recommend starting Bactrim DS BID or Ciprofloxacin 500mg BID. Urology Consult Note HPI Date Seen: 05/01/22 Requesting Physician: Joaquin Adame MD Primary Care Provider: Navin Brown, Consult Narrative Reason for consult: Bladder Stones/Dysuria Narrative: Juan Pablo Almaraz is a 72 year old male who presented to the ER for Chest Pain via EMS on 04/29/22. He has a history of CAD, HTN, Chronic Anemia and dementia. We were consulted d/t acute onset of dysuria and history of bladder stones. A urinalysis is pending at this time, WBC is 9.5 and creatinine is 0.60. A previous CT was reviewed from 02/02/22 that does show a romano in place at that time with bladder stones present. He is hypotensive and afebrile, and takes Tamsulosin for h/o BPH at home. [facility] Past Medical History Medical History Chronic anemia Coronary artery disease MD? 07/2021. 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 Pericardial effusion. Deep venous thrombosis Dementia Effusion, pericardium Essential hypertension History of GI bleed Morbid obesity due to excess calories Peripheral arterial disease Transient ischemic attack Surgical History Surgical History History of ankle surgery History of cardiac catheterization History of gastrostomy tube placement History of laparoscopic cholecystectomy (02/01/22) Family History Family History Father Family history of malignant neoplasm Mother Family history of heart disease in male family member before age 55 Hypertension Family history of cardiovascular disease Social History Social History Social History: Surrogate medical decision maker: Rachna Almaraz, spouse. Code status: Full code. Smoking status: Never smoker Second hand tobacco smoke exposure: Yes Alcohol intake: former Substance use: never Substance use type: does not use Lack of Transportation: No Lack of Food: Never True Current Housing: I Have Housing Concerned About Future Housing: No Difficulty Paying Gas/Electric Bills: No Difficulty Paying for Meds: No Currently Unemployed: No Education: High School Diploma/GED Difficulty w/ Childcare or Family Care: No Additional living arrangements comments: Resident at [facility]. Spiritual care concerns: No Meds Home Medications and Allergies Home Medications Medication Instructions Recorded Confirmed Type acetaminophen 325 mg chewable 650 mg PO Q6H PRN Pain (Scale 12/11/21 04/29/22 History tablet Score 1-3) aspirin 81 mg chewable tablet 81 mg PO DAILY 12/11/21 04/29/22 History atorvastatin 80 mg tablet 80 mg PO HS 12/11/21 04/29/22 History clopidogrel 75 mg tablet 75 mg PO DAILY 12/11/21 04/29/22 History polyethylene glycol 3350 17 17 g feeding tube DAILY PRN 12/11/21 04/29/22 History gram/dose oral powder Constipation venlafaxine 75 mg tablet 75 mg PO BID 12/11/21 04/29/22 History metoprolol tartrate 25 mg tablet 12.5 mg PO BID #21 tabs 01/07/22 04/29/22 Rx tamsulosin 0.4 mg capsule 0.4 mg PO HS #30 caps 01/07/2204/29
[2022-05-01 16:07] LABS: Erythrocyte Sedimentation Rate 26 mm/hr (0-20)
[2022-05-01 18:48] LABS: Hemoglobin A1C 4.6 % (<5.7)
[2022-05-01] MEDS: TAMSULOSIN HCL 0.4 MG CAPSULE PO (20:57)
[2022-05-01] MEDS: ATORVASTATIN 40 MG TABLET 80 MG PO (20:57)
[2022-05-01 21:44] LABS: Procalcitonin 0.1 ng/mL
[2022-05-02] VITALS (15 sets, daily range): BP systolic 95–109; BP diastolic 52–65; PULSE 72–99; RESP 16–20; TEMP 36.2–36.6; O2SAT 97–100
[2022-05-02] MEDS: FINASTERIDE 5 MG TABLET PO (09:25)
[2022-05-02] MEDS: CLOPIDOGREL BISULFATE 75 MG TABLET PO (09:25)
[2022-05-02] MEDS: DESIPRAMINE HCL 10 MG TABLET PO ×2 (09:25→16:50)
[2022-05-02] MEDS: LIDOCAINE 5% PATCH 1 PATCH TOPICAL (09:25)
[2022-05-02] MEDS: busPIRone HCL 5 MG TABLET PO ×2 (09:25→16:50)
[2022-05-02] MEDS: buPROPion HCL 75 MG TABLET PO (09:25)
[2022-05-02] MEDS: ASPIRIN 81 MG CHEWABLE TABLET PO (09:25)
[2022-05-02] MEDS: ARTIFICIAL TEARS OPHTH SOLN 15 ML BOTTLE 1 DROP EACH EYE ×2 (09:25→16:51)
[2022-05-02] MEDS: METOPROLOL TARTRATE 12.5 MG TABLET PO ×2 (09:25→20:55)
[2022-05-02] MEDS: VENLAFAXINE HCL 75 MG TABLET PO ×2 (09:25→16:51)
[2022-05-02 13:02] LABS: Appearance Urine Cloudy (Clear); Bilirubin Urine Negative (Negative); Blood Urine Trace-intact (Negative); Color Urine Yellow (Yellow); Glucose Urine UA Negative (Negative); Ketones Urine Negative (Negative); Leukocyte Esterase Ur 3+ LEU/UL (NEGATIVE); Nitrate Urine Negative (Negative); Protein Urine 1+ mg/dL (Negative); Specific Grav Ur 1.015 (1.001-1.035); pH Urine 8.5 (5.0-9.0)
[2022-05-02 13:40] LABS: Amorphous Sediment Urine Few; Bacteria Urine Trace /hpf; WBC Urine >75 /hpf (0-3)
[2022-05-02 13:42] LABS: Add Urine Microscopic? YES
--- NOTE | 2022-05-02 14:49 | PM.IMPN ---
Progress Note: A&P Assessment and Plan (1) Necrosis of toe: Code(s): I96 - Gangrene, not elsewhere classified Status: Acute Assessment and Plan: Patient with dry necrosis of right 4th toe. MRI right foot showing findings concerning for aseptic osteonecrosis, erosions and less likely neoplasm. Also with a chronic fracture 5th proximal phalanx. ESR 26 and CRP 8.7. Suspect these are chronic findings. (2) Bladder calculus: Code(s): N21.0 - Calculus in bladder Status: Acute Assessment and Plan: UA noted and consistent with UTI. PCN allergy listed but has been on Augmentin and Zosyn as recently as January. Add urine culture. Add Rocephin. (3) Chest pain: Code(s): R07.9 - Chest pain, unspecified Status: Acute Assessment and Plan: Patient presents with chest pain. Cardiology recommended aspirin, statin and Plavix and no further workup. Okay to discharge from their standpoint. Chest pain has resolved. (4) Coronary artery disease: Qualifiers: Associated angina: without angina Coronary Disease-Associated Artery/Lesion type: [place] artery [place] vs. transplanted heart: [place] heart Qualified Code(s): I25.10 - Atherosclerotic heart disease of [place] coronary artery without angina pectoris Code(s): I25.10 - Atherosclerotic heart disease of [place] coronary artery without angina pectoris Status: Chronic Assessment and Plan: As above. Cont home meds (5) Chronic anemia: Code(s): D64.9 - Anemia, unspecified Status: Acute Assessment and Plan: stable, hgb 10.8 with baseline fluctuates between 8-12 appears to be anemia of chronic disease with possible h/o hemolytic anemia, seen by Dr Parmar in the past (6) Dementia: Qualifiers: Dementia behavioral or psychological symptom: without behavioral, psychotic, or mood disturbance or anxiety Dementia severity: moderate Dementia type: unspecified type Qualified Code(s): F03.B0 - Unspecified dementia, moderate, without behavioral disturbance, psychotic disturbance, mood disturbance, and anxiety Code(s): F03.90 - Unspecified dementia, unspecified severity, without behavioral disturbance, psychotic disturbance, mood disturbance, and anxiety Status: Chronic Assessment and Plan: stable, cont home meds (7) Essential hypertension: Code(s): I10 - Essential (primary) hypertension Status: Acute Assessment and Plan: stable, cont home meds Plan DVT prophylaxis with SCDs GI prophylaxis not indicated Code status full code Subjective Date/time seen: 05/02/22 14:49 Interval history: 72yo male with dementia and HTN here for chest pain. Slept well last night. No CP. Feels better overall. He states he had a colonoscopy last year. His right toe necrosis is long standing. Patient is alert but mildly confused so hx may not be accurate. Exam Narrative: AF 97.3 109/65 94 20 99% ra Gen - NARD Chest - lungs clear anteriorly but decreased BS in the flanks. nml RR CV - RRR S1/S2. Tele showing no significant dysrhythmias Abd - Soft, NT/ND, Positive BS. Peg in place with dressing clean and dry Ext - No pedal edema Neuro - Alert but confused. Oriented to location and year. Psych - Nml mood and affect Skin - chronic venous stasis skin changes. necrotic lesion on right 4th toe noted Objective Data Vital Signs Vital Signs: Vital Signs - 24 hr 05/01/22 18:18 05/01/22 16:00 05/01/22 18:00 Temperature 96.6 F L Pulse Rate 98 70 79 Respiratory Rate 20 Blood Pressure 103/69 Pulse Oximetry 97 Oxygen Delivery 05/01/22 20:00 05/01/22 20:57 05/01/22 20:00 Temperature 97 F L Pulse Rate 96 100 93 Respiratory Rate 20 Blood Pressure 103/68 Pulse Oximetry 98 Oxygen Delivery 05/01/22 20:00 05/01/22 21:46 05/01/22 23:02 Temperature 98.1 F Pulse Rate 93 94 85 Respiratory Rate 20 20 Blood
--- NOTE | 2022-05-02 15:22 | WPDURCON ---
Assessment and Plan Assessment and plan (1) BPH (benign prostatic hyperplasia): Code(s): N40.0 - Benign prostatic hyperplasia without lower urinary tract symptoms Status: Acute Assessment and Plan: Continue Tamsulosin, start Finasteride. Patient to have bladder scan done to rule out retention. Otherwise ok to discharge from a urologic standpoint at anytime and f/u outpatient for a cystoscopy. (2) Bladder stone: Code(s): N21.0 - Calculus in bladder Status: Acute Assessment and Plan: Patient will f/u as an outpatient to discuss a cystolitholapaxy to remove his bladder stones. These are likely secondary to poorly controlled BPH and may be contributing to UTI's. (3) UTI (urinary tract infection): Code(s): N39.0 - Urinary tract infection, site not specified Status: Acute Assessment and Plan: UA should reflex to culture, I recommend starting antibiotics d/t dysuria and leukocyte esterace present on UA. Tailor antibiotic therapy to culture results. Urology Consult Note HPI Date Seen: 05/02/22 Time Seen: 15:22 Requesting Physician: Joaquin Adame MD Primary Care Provider: Navin Brown, Consult Narrative Reason for consult: Bladder Stones/Dysuria Narrative: Juan Pablo Almaraz is a 72 year old male who presented to the ER initially with chest pain on 04/29/22, He is hypotensive and afebrile, with a UA that is suggestive of a UTI, urine culture should reflex. He has a history of bladder stones on his previous CT scan on 02/02/22, WBC is 9.5, creatinine 0.60 and is c/o dysuria. He has a history of BPH and remains on Tamsulosin. A repeat CT scan was ordered yesterday which shows bilateral perinephric stranding. Mild left renal atrophy. Hemorrhagic or proteinaceous cyst in the right midpole, as well as a 2.1cm bladder stone. He denies frequency, urgency, straining, hesitancy or incomplete emptying. Review of Systems Cardiovascular: Cardiovascular: Denies chest pain Respiratory: Respiratory: Reports no additional respiratory complaints Genitourinary: Genitourinary: Denies hematuria, Reports dysuria, Denies flank pain, Denies urinary frequency, Denies urinary hesitancy, Denies urinary incontinence and Denies urinary urgency PMFSH Past Medical History Medical History Chronic anemia Coronary artery disease [place]? 07/2021. 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 Pericardial effusion. Deep venous thrombosis Dementia Effusion, pericardium Essential hypertension History of GI bleed Morbid obesity due to excess calories Peripheral arterial disease Transient ischemic attack Surgical History Surgical History History of ankle surgery History of cardiac catheterization History of gastrostomy tube placement History of laparoscopic cholecystectomy (02/01/22) Family History Family History Father Family history of malignant neoplasm Mother Family history of heart disease in male family member before age 55 Hypertension Family history of cardiovascular disease Social History Social History Social History: Surrogate medical decision maker: Rachna Almaraz, spouse. Code status: Full code. Smoking status: Never smoker Second hand tobacco smoke exposure: Yes Alcohol intake: former Substance use: never Substance use type: does not use Lack of Transportation: No Lack of Food: Never True Current Housing: I Have Housing Concerned About Future Housing: No Difficulty Paying Gas/Electric Bills: No Difficulty Paying for Meds: No Currently Unemployed: No Education: High School Diploma/GED Difficulty w/ Childcare or Family Care: No Additional living arrangements comments: Resident at [facility] and
[2022-05-02] MEDS: ATORVASTATIN 40 MG TABLET 80 MG PO (20:55)
[2022-05-02] MEDS: TAMSULOSIN HCL 0.4 MG CAPSULE PO (20:56)
--- NOTE | 2022-05-02 22:46 | PC.NURSE ---
This patient, Juan Pablo Almaraz, was transferred to [ 259] on 05/02/22 at 2247. Personal belongings sent with patient. Report given to [Vishal samuel ]. Appropriate documentation sent with patient.
[2022-05-03] MEDS: LANSOPRAZOLE ORAL SUSP 30 MG/10 ML ORAL.SUSP FEED TUBE (05:48)
[2022-05-03 08:26] VITALS: PULSE 78
[2022-05-03] MEDS: METOPROLOL TARTRATE 12.5 MG TABLET PO (08:26)
[2022-05-03] MEDS: busPIRone HCL 5 MG TABLET PO (08:27)
[2022-05-03] MEDS: FINASTERIDE 5 MG TABLET PO (08:27)
[2022-05-03] MEDS: ASPIRIN 81 MG CHEWABLE TABLET PO (08:27)
[2022-05-03] MEDS: buPROPion HCL 75 MG TABLET PO (08:27)
[2022-05-03] MEDS: ARTIFICIAL TEARS OPHTH SOLN 15 ML BOTTLE 1 DROP EACH EYE (08:27)
[2022-05-03] MEDS: CLOPIDOGREL BISULFATE 75 MG TABLET PO (08:27)
[2022-05-03] MEDS: VENLAFAXINE HCL 75 MG TABLET PO (08:27)
[2022-05-03] MEDS: DESIPRAMINE HCL 10 MG TABLET PO (08:27)
[2022-05-03 08:37] VITALS: BP 98/58
--- NOTE | 2022-05-03 11:03 | PM.DS ---
DS: Admitting Diagnosis Discharge Date 05/03/22 Admitting Diagnosis Chest pain DS: Discharge Diagnosis Discharge Diagnosis (1) Necrosis of toe: Code(s): I96 - Gangrene, not elsewhere classified Status: Acute (2) Bladder calculus: Code(s): N21.0 - Calculus in bladder Status: Acute (3) Chest pain: Code(s): R07.9 - Chest pain, unspecified Status: Acute (4) Coronary artery disease: Qualifiers: Coronary Disease-Associated Artery/Lesion type: [place] artery [place] vs. transplanted heart: [place] heart Associated angina: without angina Qualified Code(s): I25.10 - Atherosclerotic heart disease of [place] coronary artery without angina pectoris Code(s): I25.10 - Atherosclerotic heart disease of [place] coronary artery without angina pectoris Status: Chronic (5) Chronic anemia: Code(s): D64.9 - Anemia, unspecified Status: Acute (6) Dementia: Qualifiers: Dementia type: unspecified type Dementia severity: moderate Dementia behavioral or psychological symptom: without behavioral, psychotic, or mood disturbance or anxiety Qualified Code(s): F03.B0 - Unspecified dementia, moderate, without behavioral disturbance, psychotic disturbance, mood disturbance, and anxiety Code(s): F03.90 - Unspecified dementia, unspecified severity, without behavioral disturbance, psychotic disturbance, mood disturbance, and anxiety Status: Chronic (7) Essential hypertension: Code(s): I10 - Essential (primary) hypertension Status: Acute DS: Summary Hospital Course Reason for hospitalization: 72yo male with dementia and HTN here for chest pain. Please see H&P for details Hospital Course: Patient presents with chest pain. Troponin negative. Cardiology recommended aspirin, statin and Plavix and no further workup. Okay to discharge from their standpoint. Chest pain has resolved. Patient with dry necrosis of right 4th toe. MRI right foot showing findings concerning for aseptic osteonecrosis, erosions and less likely neoplasm. Also with a chronic fracture 5th proximal phalanx. ESR 26 and CRP 8.7.? Suspect these are chronic findings. No drainage from the toe. UA noted and consistent with UTI. PCN allergy listed but has been on Augmentin and Zosyn as recently as January. Urine culture pending. Added Rocephin which he tolerated without evidence of allergic reaction. Discharge on Omnicef and will followup on final culture results. Patietn with chronic anemia. Hgb 10.8 with baseline fluctuates between 8-12. Appears to be anemia of chronic disease with possible h/o hemolytic anemia, seen by Dr Parmar in the past. He had clinical improvement. He overall did well and was able to be discharged on 05/03/22. Status at Discharge Cognitive/behavioral status at discharge: stable Time Spent with Patient Time attestation: Total time spent providing and/or coordinating discharge services: 32 minutes Time spent: Greater than 30 minutes Exam Narrative: AF 98/58 78 16 98% ra Gen - NARD Chest - decreased BS in the right base and few crackles in the left base, nml RR CV - RRR with distant S1/S2 Abd - Soft, NT/ND, Positive BS. Peg in place with dressing clean and dry Ext - No pedal edema Neuro - Alert but confused. Psych - Nml mood and affect Skin - chronic venous stasis skin changes. Dry, necrotic lesion on right 4th toe noted DS: Data Data Completed and Pending Labs on day of discharge: Labs from last 24 hours 05/02/22 12:14 Urine Color Yellow Urine Appearance Cloudy H Urine pH 8.5 Ur Specific [place] 1.015 Urine Protein 1+ H Urine Glucose (UA) Negative Urine Ketones Negative Ur Blood (Man) Trace-intact Urine Nitrate Negative Urine Bilirubin Negative Urine Urobilinogen 1.0 Ur Leukocyte Esterase 3+ H Urine RBC 6-10 H Urine WBC >75 H Amorphous Sediment Few H Urine Bacteria Trace Discharge Plan Discharge
[2022-05-03 12:06] LABS: EDCOVIDSCREEN Negative (Negative)
--- NOTE | 2022-05-03 12:15 | PC.NURSE ---
On 05/03/22, the student, [Johnson Ren], provided care and completed [facility] documentation on this patient. I have reviewed the student's documentation and agree with the findings.
--- NOTE | 2022-05-07 07:01 | PC.NURSE ---
Urine shows no growth. Dr. Judy hoyt.
--- NOTE | 2022-05-07 07:04 | PC.NURSE ---
Urine cx without growth. Dr. Judy hoyt.
== END 2022-05-03 14:00 ==
LOC: ANHED 18:58 → ANHIMU 04-30 06:56 → ANH2MED 05-03 11:14 → ANHIMU 05-04 15:05
PROVIDERS: Student in an Organized Health Care Education/Training Program; Admitting Provider Chiropractor; Emergency Provider Emergency Medicine; PCP Family Medicine; Visit Provider Internal Medicine
DX: I96 Gangrene, not elsewhere classified (principal); N21.0 Calculus in bladder; R07.9 Chest pain, unspecified; I25.10 Atherosclerotic heart disease of native coronary artery without angina pectoris; D64.9 Anemia, unspecified; N40.0 Benign prostatic hyperplasia without lower urinary tract symptoms; F03.B0 Unspecified dementia, moderate, without behavioral disturbance, psychotic disturbance, mood disturbance, and anxiety; I10 Essential (primary) hypertension; R30.0 Dysuria; N39.0 Urinary tract infection, site not specified; R06.02 Shortness of breath; Z20.822 Contact with and (suspected) exposure to COVID-19; J90 Pleural effusion, not elsewhere classified; E11.9 Type 2 diabetes mellitus without complications; R94.31 Abnormal electrocardiogram [ECG] [EKG]; E66.01 Morbid (severe) obesity due to excess calories; Z68.26 Body mass index [BMI] 26.0-26.9, adult; Z95.5 Presence of coronary angioplasty implant and graft; Z93.1 Gastrostomy status; Z86.718 Personal history of other venous thrombosis and embolism; Z86.73 Personal history of transient ischemic attack (TIA), and cerebral infarction without residual deficits; Z79.1 Long term (current) use of non-steroidal anti-inflammatories (NSAID); Z79.4 Long term (current) use of insulin; Z79.82 Long term (current) use of aspirin; Z79.02 Long term (current) use of antithrombotics/antiplatelets; Z79.899 Other long term (current) drug therapy; Z82.49 Family history of ischemic heart disease and other diseases of the circulatory system
CPT/HCPCS: 36415; 71045; 73718; 74018; 74176; 80053; 81001; 83036; 83690; 84145; 84484; 85025; 85610; 85652; 85730; 86140; 87086; 87088; 87426; 87637; 93005; 93922; 96360; 96361; 96365; 99285; A9270; C9803; G0378; J0696; J7030

== ENCOUNTER 2022-05-13 12:33 | Emergency (ER) | payer OTHER, MEDICAID, SELFPAY ==
[2022-05-13] VITALS (9 sets, daily range): BP systolic 107–125; BP diastolic 68–87; PULSE 95–103; RESP 12–18; TEMP 36.8; O2SAT 58–100
--- NOTE | ~2022-05-13 | CT_ITS ---
EXAMINATION: CT brain wo con DATE: 05/13/2022 13:24 INDICATION: Minor head injury TECHNIQUE: Computed tomography (CT) of the head was performed without intravenous contrast. The mA wa s adjusted according to patient size. Iterative reconstruction technique was employed. Exam dose: 68 1.00 mGy-cm total exam DLP. COMPARISON: 01/27/2022 CT brain FINDINGS: There is a subtle 3 mm density in the right basal ganglia area approximately 1.1 cm medial to the sylvian fissure (series 2 image 32); this may be a subtle small hematoma or contusion. Bilateral vertebral artery and carotid siphon internal carotid artery calcifications. There is stable patchy diminished attenuation of the subcortical and particularly deep white matter, likely due to c hronic small vessel ischemic changes. No intracranial mass lesion or hemorrhage, midline shift or mass effect is noted otherwise. No subdur al or epidural hematoma. There is central and cortical cerebral and cerebellar atrophy. Mastoid air cells and paranasal sinuses are normally developed and aerated. No fracture or bone destruction of the cranial IMPRESSION: Possible small focal hematoma or contusion, right basal ganglia Reviewed, dictated and finalized at [facility]. Reviewed, dictated and finalized at [facility]. IGINAL LIAISON OFFICER
--- NOTE | 2022-05-13 13:25 | ED.GENADULT ---
HPI - General Adult General Chief complaint: Fall Stated complaint: Fall History of Present Illness HPI narrative: Patient is a 72-year-old male who is bedbound that presents ER after a fall from his bed. Patient is oriented x2. He attempts to give a history and reports that he fell 4 days ago and then laid on the floor for 4 hours. However the [facility] reports that he fell today at 10 AM and that it was unwitnessed. He is on blood thinners and they would like his head scanned. He denies any pain at this time. No obvious trauma to the head. Related Data Allergies Allergy/AdvReac Type Severity Reaction Status Date / Time Penicillins Allergy Unknown Verified 05/13/22 14:05 Review of Systems Review of Systems: ROS unobtainable: Yes unobtainable due to mental status PMFSH Past Medical History Medical History (Updated 05/13/22 @ 14:16 by Pablito Avalos MD) Depression Diabetic neuropathy GERD (gastroesophageal reflux disease) History of DVT (deep vein thrombosis) History of pulmonary embolism NSTEMI (non-ST elevated myocardial infarction) Type 2 diabetes mellitus Surgical History Surgical History (Updated 05/13/22 @ 14:02 by Pablito Avalos MD) History of percutaneous coronary intervention Exam Narrative: GENERAL: Well-appearing, well-nourished, and in no acute distress. HEAD: Normocephalic, atraumatic. EYES: PERRL and EOMI. ENT: Mucous membranes moist. CHEST: Clear to auscultation. No respiratory distress. HEART: Regular rate and rhythm. Normal peripheral pulses. ABDOMEN: Soft, nontender, nondistended EXTREMITIES: Normal range of motion. No edema. SKIN: Warm, dry, no rash. NEURO: Alert and oriented x2. Course Reevaluation(s) Reevaluation #1: I attempted to contact patient's spouse Rachna Almaraz and a voicemail was left. I then called the next supervisor contact lens the patient's daughter Jen and that went straight to voicemail. I was then able to contact the patient's son Marshal. He reports that Rachna is the power of workers compensation attorney for this patient. He will attempt to help contact her to help with management of the patient. He has been made aware that patient has a small area on the CT scan that may represent intracerebral hemorrhage or contusion. Date: 05/13/22 Time: 13:55 Reevaluation #2: I was able to speak with the patient's Rachna. She would like the patient evaluated at [facility] where he has had care previously. Patient has been accepted to the ER by Dr. Quesada. Date: 05/13/22 Time: 14:13 Vital Signs Vital signs: Vital Signs Blood Pressure 125/87 05/13/22 12:38 Temperature 98.2 F 05/13/22 12:40 Pulse Rate 95 05/13/22 12:46 Respiratory Rate 12 05/13/22 12:46 Blood Pressure 107/68 05/13/22 13:15 Pulse Oximetry 80 L 05/13/22 13:30 Medical Decision Making Vital Signs Vital Signs: Vital Signs Blood Pressure 125/87 05/13/22 12:38 Temperature 98.2 F 05/13/22 12:40 Pulse Rate 95 05/13/22 12:46 Respiratory Rate 12 05/13/22 12:46 Blood Pressure 107/68 05/13/22 13:15 Pulse Oximetry 80 L 05/13/22 13:30 Lab Data Labs: Lab Results 05/13/22 05/13/22 05/13/22 Range/Units 14:15 15:16 15:26 POC Capillary Glucose 66 104 (65-105) mg/dl Influenza A (RT-PCR) Negative (Negative) Influenza B (RT-PCR) Negative (Negative) SARS-CoV-2 RNA (RT-PCR) Negative Imaging Data Radiologist's impression: ITS Impressions Head CT 05/13/22 13:28 IMPRESSION: Possible small focal hematoma or contusion, right basal ganglia Critical Care Time Critical Care Time Critical Care Time: Yes Total Critical Care Time: 35 Discharge Plan Discharge Clinical Impression: Acute intracerebral hemorrhage Patient Disposition: Acute Care Hospital Condition: Stable Follow-up/Referrals: PHYSICIAN,REWEAVER [Primary Care Provider] -
--- NOTE | 2022-05-13 13:59 | PC.NURSE ---
Contacted [facility] concerning the time of PT fall. Nurse states pt fell at 10am today.
--- NOTE | 2022-05-13 14:12 | PC.NURSE ---
Pt states he wants a second opinion and is refusing IV. Pt states that there are crooks here and he will not allow anyone to take his money.
--- NOTE | 2022-05-13 14:34 | PC.NURSE ---
[facility]15 [facility] declined transfer to [facility] [address] [facility] accepted transfer to [facility]
--- NOTE | 2022-05-13 14:35 | PC.NURSE ---
pt refusing to allow nurse to insert IV. Pt is paranoid. Pt giving other patients his info because he believes he is going to disappear.
[2022-05-13] MEDS: LORazepam INJ (*CRX) 2 MG/ML VIAL 1 MG IM (14:45)
[2022-05-13 15:00] LABS: Influenza A QL RT-PCR Negative (Negative); Influenza B QL RT-PCR Negative (Negative); SARS-CoV-2 RNA PCR Negative
[2022-05-13] MEDS: LORazepam INJ (*CRX) 2 MG/ML VIAL 1 MG IV PUSH (15:08)
[2022-05-13 15:18] LABS: Glucose Point of Care 66 mg/dl (65-105)
[2022-05-13 15:29] LABS: Glucose Point of Care 104 mg/dl (65-105)
== END 2022-05-13 15:59 | disposition short-term general hospital (02) ==
PROVIDERS: Emergency Provider Emergency Medicine
DX: S06.2XAA Diffuse traumatic brain injury with loss of consciousness status unknown, initial encounter (principal); Z20.822 Contact with and (suspected) exposure to COVID-19; E11.40 Type 2 diabetes mellitus with diabetic neuropathy, unspecified; I25.2 Old myocardial infarction; K21.9 Gastro-esophageal reflux disease without esophagitis; F32.A Depression, unspecified; Z86.718 Personal history of other venous thrombosis and embolism; Z86.711 Personal history of pulmonary embolism; Z79.01 Long term (current) use of anticoagulants; Z79.82 Long term (current) use of aspirin; Z74.01 Bed confinement status; W06.XXXA Fall from bed, initial encounter
CPT/HCPCS: 70450; 82948; 87636; 96372; 96374; 99291; J2060

== ENCOUNTER 2022-07-04 16:41 | Emergency (ER) | payer OTHER, MEDICAID, SELFPAY ==
--- NOTE | ~2022-07-04 | XR_ITS ---
EXAMINATION: XR chest 1V Exam Date/Time: 07/04/2022 17:35 CDT HISTORY: cough Comparison: 04/29/2022. RESULT: Lines, tubes, and devices: None. Lungs and pleura: Clear. Left lower lobe calcified granuloma. Cardiomediastinal silhouette: Stable. Other: No acute osseous or upper abdominal finding. IMPRESSION: No acute cardiopulmonary process. Reviewed, dictated and finalized at [facility].
--- NOTE | ~2022-07-04 | CT_ITS ---
EXAMINATION: CT brain wo con DATE: 07/04/2022 17:37 INDICATION: weakness . TECHNIQUE: Computed tomography (CT) of the head was performed without intravenous contrast. The mA wa s adjusted according to patient size. Iterative reconstruction technique was employed. The dose-lengt h product was 681.00 mGy-cm. COMPARISON: 05/13/2022. FINDINGS: No acute intracranial hemorrhage or extra-axial fluid collection. No hydrocephalus, mass, or herniation. No acute ischemic infarct. Unremarkable dural venous sinus attenuation. No acute osseous abnormality. Small bilateral mastoid effusions, the remaining aerated spaces are clear. Moderate atrophy and chronic white matter change. Atherosclerotic intracranial calcification. Persist ent 3 mm hyperdensity in the right basal ganglia, likely representing chronic calcification. IMPRESSION: No acute intracranial process. Reviewed, dictated and finalized at [facility].
[2022-07-04 16:42] VITALS: BP 158/88; PULSE 101; RESP 18; TEMP 36.9; O2SAT 100
--- NOTE | 2022-07-04 16:49 | ECG_ITS ---
Measurements Intervals [place] Rate: 100 P: 50 LA: 166 QRS: 17 QRSD: 125 T: 14 QT: 399 QTc: 516 Interpretive Statements SINUS TACHYCARDIA RIGHT BUNDLE BRANCH BLOCK [120+ ms QRS DURATION, UPRIGHT V1, 40+ ms S IN I/aVL/V4/V5/V6] INFERIOR INFARCTION ABNORMAL EKG COMPARED TO ECG 04/29/2022 16:51:28 RIGHT BUNDLE-BRANCH BLOCK NOW PRESENT Electronically Signed On 07-04-2022 17:58:37 CDT by Colton Ellsworth M.D.
[2022-07-04 17:20] LABS: Alanine Aminotransferase 17 U/L (6-50); Alkaline Phosphatase 126 U/L (38-126); Anion Gap 14 mmol/L (8-16); Aspartate Amino Transferase 25 U/L (17-59); Bilirubin,Total 0.8 mg/dL (0.2-1.3); Blood Urea Nitrogen 17 mg/dL (9-20); Calcium 8.9 mg/dL (8.4-10.2); Carbon Dioxide 22 mmol/L (22-30); Chloride 104 mmol/L (98-107); Estimated CRCL calculation 77 ml/min; Estimated Glomerular Filt Rate > 60; Glucose 146 mg/dL (65-110); Potassium 3.4 mmol/L (3.4-5.0); Sodium 140 mmol/L (137-145)
[2022-07-04 17:34] LABS: Appearance Urine Turbid (Clear); Bacteria Urine Rare /hpf; Bilirubin Urine Negative (Negative); Blood Urine Negative (Negative); Color Urine Yellow (Yellow); Glucose Urine UA Negative (Negative); Ketones Urine 3+ mg/dL (Negative); Leukocyte Esterase Ur 3+ LEU/UL (Negative); Need Manual Microscopic Reviewed; Nitrate Urine Negative (Negative); Protein Urine 2+ mg/dL (Negative); Specific Grav Ur 1.017 (1.001-1.035); Squamous Epithelial Cell Urine None seen /hpf (Few); WBC Urine >100 /hpf; pH Urine >=9.0 (5.0-9.0)
--- NOTE | 2022-07-04 17:36 | ED.WEAKNESS ---
HPI - Weakness General Chief complaint: Weakness Stated complaint: weakness Time Seen by Provider: 07/04/22 17:04 History of Present Illness HPI Narrative: Pt presents with several complaints. Pt has generalized weakness for weeks, tingling in feet and hands today which has now resolved. dysuria for several days. Pt states he was on norco 5/325 4 times a day for years and they have taken him off of it. Pt has chronic pain which is unchanged. Pt says they are giving tylenol which does nothing, Related Data Home Medications Medication Instructions Recorded Confirmed acetaminophen 325 mg chewable 650 mg PO Q6H PRN Pain (Scale 12/11/21 04/29/22 tablet Score 1-3) aspirin 81 mg chewable tablet 81 mg PO DAILY 12/11/21 04/29/22 atorvastatin 80 mg tablet 80 mg PO HS 12/11/21 04/29/22 clopidogrel 75 mg tablet 75 mg PO DAILY 12/11/21 04/29/22 polyethylene glycol 3350 17 17 g feeding tube DAILY PRN 12/11/21 04/29/22 gram/dose oral powder Constipation venlafaxine 75 mg tablet 75 mg PO BID 12/11/21 04/29/22 amino ac-protein hydrolys 11 1 ea feeding tube DAILY 04/29/22 04/29/22 gram-40 kcal/45 mL tube feed liquid pack (Reclip.It TF) buspirone 5 mg tablet 5 mg PO BID 04/29/22 04/29/22 desipramine 10 mg tablet 10 mg PO BID 04/29/22 04/29/22 esomeprazole magnesium 40 mg 40 mg feeding tube BID 04/29/22 04/29/22 capsule,delayed release hydroxyzine HCl 25 mg tablet 25 mg PO TID PRN Itching 04/29/22 04/29/22 lidocaine 5 % topical patch 1 patch topical DAILY 04/29/22 04/29/22 nutritional supplements 0.06 200 ea feeding tube Q4H 04/29/22 04/30/22 gram-1.5 kcal/mL oral liquid (Osmolite 1.5 [place]) polyvinyl alcohol-povidone (PF) 1 drp EACH EYE TID 04/29/22 04/29/22 1.4 %-0.6 % eye drops in a dropperette (Refresh Classic (PF)) sodium chloride 0.65 % nasal spray 2 spray intranasal QID PRN Nasal 04/29/22 04/29/22 aerosol ([place] Nasal) Congestion bupropion HCl 75 mg tablet 75 mg PO DAILY 04/30/22 04/30/22 Allergies Allergy/AdvReac Type Severity Reaction Status Date / Time Penicillins Allergy Unknown Verified 05/14/22 15:22 Review of Systems Review of Systems: All systems reviewed & are unremarkable except as noted in HPI and below PMFSH Past Medical History Medical History Chronic anemia Coronary artery disease [place]? 07/2021. 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 Pericardial effusion. Deep venous thrombosis Dementia Effusion, pericardium Essential hypertension History of GI bleed Morbid obesity due to excess calories Peripheral arterial disease Transient ischemic attack Surgical History Surgical History History of ankle surgery History of cardiac catheterization History of gastrostomy tube placement History of laparoscopic cholecystectomy (02/01/22) Family History Family History Father Family history of malignant neoplasm Mother Family history of heart disease in male family member before age 55 Hypertension Family history of cardiovascular disease Social History Social History (System 05/14/22 @ 15:22 by Ralf López) Social History: Surrogate medical decision maker: Rachna Almaraz, spouse. Code status: Full code. Smoking status: Never smoker Second hand tobacco smoke exposure: Yes Alcohol intake: former Substance use: never Substance use type: does not use Lack of Transportation: No Lack of Food: Never True Current Housing: I Have Housing Concerned About Future Housing: No Difficulty Paying Gas/Electric Bills: No Difficulty Paying for Meds: No Currently Unemployed: No Education: High School Diploma/GED Difficulty w/ Childcare or Family Care: No Additional living arrangements comments: Resident at [facility]. Spiritual care concerns: No Exam Const:
[2022-07-04 17:40] LABS: Basophils Percent Auto 0.3 % (0.2-1.2); Eosinophils Percent Auto 0.1 % (0-4.4); Hematocrit 34.2 % (42.0-52.0); Hemoglobin 12.7 g/dL (14.0-18.0); Immature Granulocyte Absolute 0.04 K/mm3 (0.00-0.031); Immature Granulocyte Percent A 0.5 % (0-0.5); Lymphocytes Absolute Auto 1.18 K/mm3 (0.9-3.2); Lymphocytes Percent Auto 13.3 % (18.3-44.2); Mean Corpuscular HGB Conc 37.1 g/dl (32-36); Mean Corpuscular Hemoglobin 34.5 pg (26-34); Mean Corpuscular Volume 92.9 fl (80-100); Mean Platelet Volume 9.9 fl (7.4-10.4); Monocytes Absolute Auto 0.7 K/mm3 (0.1-0.6); Monocytes Percent Auto 7.6 % (2.6-8.5); Neutrophils Absolute Auto 6.9 K/mm3 (1.3-6.7); Neutrophils Percent Auto 78.2 % (45.5-73.1); Platelet Count Result 339 k/mm3 (150-375); Red Blood Count 3.68 M/mm3 (4.6-6.20); Red Cell Distribution Width 21.2 % (11.5-14.5); White Blood Count 8.8 K/mm3 (4.5-10.0)
[2022-07-04 17:41] LABS: Add Urine Microscopic? YES
[2022-07-04 18:00] VITALS: RESP 18; O2SAT 100
[2022-07-04] MEDS: traMADol HCL (*CRX) 50 MG TABLET PO (18:24)
[2022-07-04] MEDS: ONDANSETRON INJ 4 MG/2 ML VIAL IV PUSH (18:24)
[2022-07-04] MEDS: NITROFURANTOIN MONOHYD MACROCR 100 MG CAP PO (18:24)
[2022-07-04 18:32] VITALS: BP 138/75; PULSE 114; RESP 16; O2SAT 100
[2022-07-04 19:42] VITALS: BP 135/68; PULSE 92; RESP 25; O2SAT 97
[2022-07-04 20:00] VITALS: BP 137/76; PULSE 89; RESP 25; O2SAT 97
== END 2022-07-04 20:23 ==
PROVIDERS: General Practice; Emergency Provider Emergency Medicine; PCP Family Medicine
DX: N39.0 Urinary tract infection, site not specified (principal); F41.9 Anxiety disorder, unspecified; F03.90 Unspecified dementia, unspecified severity, without behavioral disturbance, psychotic disturbance, mood disturbance, and anxiety; I25.10 Atherosclerotic heart disease of native coronary artery without angina pectoris; I10 Essential (primary) hypertension; I73.9 Peripheral vascular disease, unspecified; D64.9 Anemia, unspecified; E66.01 Morbid (severe) obesity due to excess calories; Z68.26 Body mass index [BMI] 26.0-26.9, adult; Z86.73 Personal history of transient ischemic attack (TIA), and cerebral infarction without residual deficits; Z86.718 Personal history of other venous thrombosis and embolism; Z79.82 Long term (current) use of aspirin; R00.0 Tachycardia, unspecified; I45.10 Unspecified right bundle-branch block; R94.31 Abnormal electrocardiogram [ECG] [EKG]
CPT/HCPCS: 36415; 70450; 71045; 80053; 81001; 85025; 87077; 87086; 87088; 93005; 96374; 99284; A9270; J2405

== ENCOUNTER 2022-07-05 04:27 | Emergency (ER) | payer OTHER, MEDICAID, SELFPAY ==
[2022-07-05] VITALS (119 sets, daily range): BP systolic 82–165; BP diastolic 36–132; PULSE 109–160; RESP 14–38; TEMP 37; O2SAT 89–100
--- NOTE | ~2022-07-05 | XR_ITS ---
EXAMINATION: XR chest port-a-cath/central DATE: 07/05/2022 12:37 INDICATION: Central line placement TECHNIQUE: frontal view of the chest was obtained. COMPARISON: Chest radiograph dated 07/05/2022 at 7:41 AM FINDINGS: Newly placed right internal jugular central venous catheter with distal tip near the superior cavoatr ial junction. Endotracheal tube tip 6.2 cm above the cole. Nasogastric tube extends below the left hemidiaphragm with distal tip collimated off the study. Patchy perihilar and infrahilar opacities. No pleural effusion or pneumothorax. Calcified left lower lobe nodule consistent with old granulomatous disease. Heart size is normal. IMPRESSION: 1. Right internal jugular central venous catheter tip at the superior cavoatrial junction. 2. Endotracheal tube tip 6.2 cm above the cole. Could consider advancement by 4 cm. 3. Increasing patchy airspace perihilar and infrahilar opacities which could represent pulmonary pretty a, aspiration or pneumonia. Reviewed, dictated and finalized at location A. IMPRESSION: 1. Right internal jugular central venous catheter tip at the superior cavoatria l junction. 2. Endotracheal tube tip 6.2 cm above the cole. Could consider advancement by 4 cm. 3. Increasing patchy airspace perihilar and infrahilar opacities which could re present pulmonary edema, aspiration or pneumonia.
--- NOTE | ~2022-07-05 | XR_ITS ---
EXAMINATION: XR chest ET placement, XR abdomen NG/feed tube insert DATE: 07/05/2022 07:46 INDICATION: Endotracheal tube and nasogastric tube placements TECHNIQUE: 1. Frontal view of the chest was obtained. 2. AP view of the abdomen was obtained. COMPARISON: Chest radiograph dated 07/04/2022 FINDINGS: Chest : Endotracheal tube tip 4.7 cm above the cole. Bilateral perihilar mild increased interstitial patter n consistent with mild pulmonary edema. No other airspace opacities, pleural effusion or pneumothorax . The cardiomediastinal silhouette is normal. ABDOMEN: Nasogastric tube tip in proximal side port in the body the stomach. Also projecting over the distal b fritz of the stomach is inflated bulb of a percutaneous gastrostomy tube. There are some gas and stool scattered throughout the colon. No dilated loops of gas-filled bowel to suggest obstruction. Mild lum bar levoscoliosis with severe spondylosis. IMPRESSION: 1. Endotracheal tube and nasogastric tube in expected positions. 2. Mild perihilar increased interstitial pattern consistent with mild pulmonary edema. 3. No dilated loops of gas-filled bowel to suggest obstruction. Reviewed, dictated and finalized at location A. IMPRESSION: 1. Endotracheal tube and nasogastric tube in expected positions. 2. Mild perihilar increased interstitial pattern consistent with mild pulmonary edema. 3. No dilated loops of gas-filled bowel to suggest obstruction.
--- NOTE | ~2022-07-05 | CT_ITS ---
EXAMINATION: CT abdomen pelvis w con DATE: 07/05/2022 08:05 INDICATION: Hemoptysis. TECHNIQUE: Computed tomography (CT) of the abdomen and pelvis was performed with 100 mL Omnipaque 350 intravenous contrast. Automated exposure control and iterative reconstruction technique were employe d. The dose-length product was 1001.56 mGy-cm. COMPARISON: CT abdomen and pelvis 05/01/2022, 01/23/2022 FINDINGS: The visualized portions of the lung bases demonstrate centrilobular nodules and groundglass opacities in the lower lobes and right middle lobe, consistent with pneumonia. A calcified left lung nodule is consistent with old granulomatous disease. No pleural effusion. There is an old infarct in left ventricular apex with enlargement of the left ventricle. No pericardial effusion. There are cor onary artery calcifications. There is a laceration of inferior right hepatic lobe with depth of 12 mm with small volume of adjacent hypodense hemorrhage, likely subacute. There are changes of cholecyste ctomy. There is a 17 x 13 mm mass with calcifications in the gallbladder fossa with interval decrease in size. There is a gastrostomy tube with balloon in the first portion of the duodenum. There is a n asogastric tube in expected position. There is pneumatosis of the stomach. Calcifications in the sple en are consistent with old granulomatous disease. The pancreas and adrenal glands are normal. There i s cortical thinning of the kidneys. There is a 12 mm hemorrhagic cyst in right kidney. There are 2 st ones in the bladder with the larger measuring 2.4 cm. The bladder is decompressed by a Mora catheter . There are no dilated loops of bowel. The appendix is not visualized. There are no pathologically en larged lymph nodes. There are bilateral inguinal hernias containing fat. There is no free intraperito shawna fluid. There is lumbar levoscoliosis and severe spondylosis. IMPRESSION: 1. Pneumatosis of the stomach. 2. Gastrostomy balloon in the first portion of the duodenum. 3. Laceration of the inferior right hepatic lobe with depth of 12 mm, likely subacute. 4. Pneumonia in the lower lobes and right middle lobe. 5. 17 x 13 mm mass with calcifications in the gallbladder fossa with decrease in size from 05/01/2022. This finding may be residual gallbladder (or other postsurgical collection) given that the operative report from 02/01/22 describes a subtotal cholecystectomy. Reviewed, dictated and finalized at location A. IMPRESSION: 1. Pneumatosis of the stomach. 2. Gastrostomy balloon in the first portion of the duodenum. 3. Laceration of the inferior right hepatic lobe with depth of 12 mm, likely delcid bacute. 4. Pneumonia in the lower lobes and right middle lobe. 5. 17 x 13 mm mass with calcifications in the gallbladder fossa with decrease i n size from 05/01/2022. This finding may be residual gallbladder (or other posts urgical collection) given that the operative report from 02/01/22 describes a delcid btotal cholecystectomy.
--- NOTE | 2022-07-05 04:35 | ECG_ITS ---
Measurements Intervals [place] Rate: 155 P: MS: 0 QRS: 27 QRSD: 128 T: 6 QT: 292 QTc: 470 Interpretive Statements UNCERTAIN REGULAR RHYTHM RIGHT BUNDLE BRANCH BLOCK [120+ ms QRS DURATION, UPRIGHT V1, 40+ ms S IN I/aVL/V4/V5/V6] INFERIOR MYOCARDIAL INFARCTION , OLD MODERATE T-WAVE ABNORMALITY, CONSIDER LATERAL ISCHEMIA [-0.1+ mV T WAVE IN I/aVL/V5/V6] COMPARED TO ECG 07/04/2022 16:48:45 NO SIGNIFICANT CHANGES Electronically Signed On 07-05-2022 10:45:00 CDT by Luis Miguel Vincent M.D.
[2022-07-05] MEDS: SODIUM CHLORIDE 0.9% IV 1,000 ML 999 ML IV CONT ×2 (05:00→06:38)
[2022-07-05] MEDS: PANTOPRAZOLE SODIUM IV 40 MG VIAL 80 MG IV PUSH ×2 (05:01→11:27)
[2022-07-05] MEDS: METOCLOPRAMIDE HCL INJ 10 MG/2 ML VIAL IV PUSH (05:01)
--- NOTE | 2022-07-05 05:15 | PC.NURSE ---
0515 pt. given 6 mg adenosine ivp. HR 145 0519 pt given 12 mg adenosine ivp HR 152 0522 vorb pt. given 10 mg cardizem ivp 0528 vorb rn to give 15 mg cardizem ivp
[2022-07-05 05:23] LABS: INR 1.3; Partial Thromboplastin Time 25.8 SECONDS (22.3-36.8); Prothrombin Time 15.5 Seconds (11.1-14.7)
--- NOTE | 2022-07-05 05:31 | PC.NURSE ---
unsuccessful attempt at ng tube.
[2022-07-05 05:32] LABS: Lactic Acid Reflex 4.9 mmol/L (0.7-2.0)
[2022-07-05 05:35] LABS: Basophils Percent Auto 0.1 % (0.2-1.2); Hematocrit 35.5 % (42.0-52.0); Hemoglobin 13.3 g/dL (14.0-18.0); Immature Granulocyte Absolute 0.05 K/mm3 (0.00-0.031); Immature Granulocyte Percent A 0.5 % (0-0.5); Lymphocytes Absolute Auto 1.24 K/mm3 (0.9-3.2); Lymphocytes Percent Auto 13.3 % (18.3-44.2); Mean Corpuscular HGB Conc 37.5 g/dl (32-36); Mean Corpuscular Hemoglobin 34.3 pg (26-34); Mean Corpuscular Volume 91.5 fl (80-100); Mean Platelet Volume 10.3 fl (7.4-10.4); Monocytes Absolute Auto 0.8 K/mm3 (0.1-0.6); Monocytes Percent Auto 8.7 % (2.6-8.5); Neutrophils Absolute Auto 7.2 K/mm3 (1.3-6.7); Neutrophils Percent Auto 77.4 % (45.5-73.1); Platelet Count Result 395 k/mm3 (150-375); Red Blood Count 3.88 M/mm3 (4.6-6.20); Red Cell Distribution Width 22.2 % (11.5-14.5); White Blood Count 9.3 K/mm3 (4.5-10.0)
--- NOTE | 2022-07-05 05:37 | ED.GENADULT ---
HPI - General Adult General Chief complaint: Nausea/Vomiting/Diarrhea <Antonio Uribe MD - Last Filed: 07/05/22 08:36> Stated complaint: BLOODY EMESIS <Antonio Uribe MD - Last Filed: 07/05/22 08:36> Time Seen by Provider: 07/05/22 04:31 <Antonio Uribe MD - Last Filed: 07/05/22 08:36> History of Present Illness HPI narrative: Patient has severe dementia and is unable to provide useful information. This is a 72-year-old male presenting to ED with dark vomit. Patient was seen here earlier today and discharged home for UTI. [facility] to the [facility] he started to have coffee-grounds/black emesis. He was then [facility] to the [facility]. <Antonio Uribe MD - Last Filed: 07/05/22 08:36> Related Data Home medications: Home Medications Medication Instructions Recorded Confirmed acetaminophen 325 mg chewable 650 mg PO Q6H PRN Pain (Scale 12/11/21 04/29/22 tablet Score 1-3) aspirin 81 mg chewable tablet 81 mg PO DAILY 12/11/21 04/29/22 atorvastatin 80 mg tablet 80 mg PO HS 12/11/21 04/29/22 clopidogrel 75 mg tablet 75 mg PO DAILY 12/11/21 04/29/22 polyethylene glycol 3350 17 17 g feeding tube DAILY PRN 12/11/21 04/29/22 gram/dose oral powder Constipation venlafaxine 75 mg tablet 75 mg PO BID 12/11/21 04/29/22 amino ac-protein hydrolys 11 1 ea feeding tube DAILY 04/29/22 04/29/22 gram-40 kcal/45 mL tube feed liquid pack (ColonaryConceptsource TF) buspirone 5 mg tablet 5 mg PO BID 04/29/22 04/29/22 desipramine 10 mg tablet 10 mg PO BID 04/29/22 04/29/22 esomeprazole magnesium 40 mg 40 mg feeding tube BID 04/29/22 04/29/22 capsule,delayed release hydroxyzine HCl 25 mg tablet 25 mg PO TID PRN Itching 04/29/22 04/29/22 lidocaine 5 % topical patch 1 patch topical DAILY 04/29/22 04/29/22 nutritional supplements 0.06 200 ea feeding tube Q4H 04/29/22 04/30/22 gram-1.5 kcal/mL oral liquid (Osmolite 1.5 [place]) polyvinyl alcohol-povidone (PF) 1 drp EACH EYE TID 04/29/22 04/29/22 1.4 %-0.6 % eye drops in a dropperette (Refresh Classic (PF)) sodium chloride 0.65 % nasal spray 2 spray intranasal QID PRN Nasal 04/29/22 04/29/22 aerosol ([place] Nasal) Congestion bupropion HCl 75 mg tablet 75 mg PO DAILY 04/30/22 04/30/22 <Antonio Uribe MD - Last Filed: 07/05/22 08:36> Allergies/adverse reactions: Allergies Allergy/AdvReac Type Severity Reaction Status Date / Time Penicillins Allergy Unknown Verified 05/14/22 15:22 <Antonio Uribe MD - Last Filed: 07/05/22 08:36> [facility] Past Medical History Medical History: Medical History Chronic anemia Coronary artery disease [place]? 07/2021. 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 Pericardial effusion. Deep venous thrombosis Dementia Effusion, pericardium Essential hypertension History of GI bleed Morbid obesity due to excess calories Peripheral arterial disease Transient ischemic attack <Antonio Uribe MD - Last Filed: 07/05/22 08:36> Surgical History Surgical History: Surgical History History of ankle surgery History of cardiac catheterization History of gastrostomy tube placement History of laparoscopic cholecystectomy (02/01/22) <Antonio Uribe MD - Last Filed: 07/05/22 08:36> Family History Family History: Family History Father Family history of malignant neoplasm Mother Family history of heart disease in male family member before age 55 Hypertension Family history of cardiovascular disease <Antonio Uribe MD - Last Filed: 07/05/22 08:36> Social History Social History: Social History (System 05/14/22 @ 15:22 by Ralf López) Social History: Surrogate medical decision maker: Rachnaanderson Almaraz, spouse. Code status: Full code. Smoking status: Never smoker Second hand tobacco smoke expos
[2022-07-05 05:39] LABS: Alanine Aminotransferase 31 U/L (6-50); Albumin Level 4.2 g/dL (3.5-5.1); Alkaline Phosphatase 115 U/L (38-126); Anion Gap 18 mmol/L (8-16); Aspartate Amino Transferase 31 U/L (17-59); Blood Urea Nitrogen 19 mg/dL (9-20); Carbon Dioxide 17 mmol/L (22-30); Chloride 105 mmol/L (98-107); Estimated Glomerular Filt Rate > 60; Glucose 227 mg/dL (65-110); Magnesium 1.9 mg/dL (1.6-2.3); Sodium 140 mmol/L (137-145); Troponin I 0.026 ng/mL (0.000-0.034)
[2022-07-05 05:42] LABS: Glucose Point of Care 181 mg/dl (65-105)
[2022-07-05 05:50] LABS: Anisocytosis 1+ (NORMAL); Burr Cells 1+ (NORMAL); Large Platelets Present; Platelet Estimate Adequate (Adequate)
[2022-07-05 05:51] LABS: Schistocytes None Seen (NORMAL)
[2022-07-05] MEDS: SODIUM CHLORIDE 0.9% IV 2,000 ML 999 ML IV CONT (06:09)
[2022-07-05] MEDS: ONDANSETRON INJ 4 MG/2 ML VIAL 8 MG IV PUSH (06:23)
[2022-07-05] MEDS: HALOPERIDOL LACTATE 5 MG/ML VIAL IV PUSH (06:37)
--- NOTE | 2022-07-05 07:07 | PC.NURSE ---
pt continues to have coffee ground emesis. room prepped for intubation. difficult intubation equipment at bedside.
[2022-07-05] MEDS: ETOMIDATE 20 MG/10 ML AMPUL IV PUSH (07:16)
[2022-07-05] MEDS: ROCURONIUM BROMIDE 50 MG/5 ML VIAL 100 MG IV PUSH (07:16)
--- NOTE | 2022-07-05 07:16 | PC.NURSE ---
etomidate 20mg ivp harris 100 mg given ivp 7.5 et tube placed 22 at lip, positive color change on monitor. et tube suctioned of coffee ground emesis. og 16 fr flaced at 73. spontaneous return of 1200 cc.
[2022-07-05] MEDS: HYDROmorphone HCL INJ (*CRX) 1 MG/ML SYR (07:20)
--- NOTE | 2022-07-05 07:25 | PC.NURSE ---
dilaudid 1 mg ivp.
[2022-07-05] MEDS: FENTANYL 2,500MCG/NS250ML(*CRX 2,500 MCG/250 ML BAG 10 MCG IV CONT (07:35)
--- NOTE | 2022-07-05 07:35 | PC.NURSE ---
fentanyl 50 mcg given for additional sedation.
[2022-07-05 08:08] LABS: Reflex Lactic Acid Yes or No Add Lactic
[2022-07-05] MEDS: SODIUM CHLORIDE 0.9% IV 1,000 ML 250 ML IV CONT (08:20)
[2022-07-05 09:12] LABS: Alveolar/Arterial O2 Gradient 294.6 mmHg; Base Excess ABG -6.8 mEq/l (+/-2.0); Fractional Inspired Oxygen 60 %; HCO3 ABG 19.8 mEq/l (22.0-26.0); Oxygen Content ABG 15.8 %vol (16.0-22.0); Oxygen Saturation ABG 95.2 % (95.0-100.0); Oxyhemoglobin 93.3 % THb (90.0-100.0); PCO2 ABG 43.7 mmHg (35.0-45.0); PO2 ABG 85.1 mmHg (80.0-100.0); PO2 FiO2 Ratio Arterial Blood 1.42 %
[2022-07-05 09:17] LABS: pH ABG 7.274 (7.350-7.450)
[2022-07-05 09:18] LABS: Arterial Blood Gas Ventilator rate 16 /MIN; Device VENTILATOR; Site Drawn RIGHT BRACHIAL
[2022-07-05 09:19] LABS: Arterial Blood Gas PEEP 5 cmH2O; Arterial Blood Gas Pressure Support 0 cmH2O; Arterial Blood Gas Tidal Volume 450 ml; Arterial Blood Gas Vent Mode CMV
[2022-07-05 09:23] LABS: Lactic Acid 2.5 mmol/L (0.7-2.0)
[2022-07-05] MEDS: PIPERACILLN/TAZ 3.375GM/NS50ML 3.375 GM/50 ML BAG IVPB (09:32)
--- NOTE | 2022-07-05 09:50 | PC.NURSE ---
pts mayra contacted. states was not informed by assisted that pt was sent here. given update on pt condition. request pt to be transferred to [facility] if needed.
[2022-07-05 10:04] LABS: Gastric Negative Control Negative; Gastric Positive Control Positive; Occult Blood Gastric Fluid Positive; pH Gastric Fluid 3 (1-8)
[2022-07-05] MEDS: KCL 20 MEQ/SW 100 ML 100 ML 50 MEQ IVPB (10:19)
[2022-07-05 10:48] LABS: Hematocrit 35.5 % (42.0-52.0); Hemoglobin 12.5 g/dL (14.0-18.0)
[2022-07-05] MEDS: LORazepam INJ (*CRX) 2 MG/ML VIAL IV PUSH (11:11)
[2022-07-05] MEDS: PANTOPRAZOLE SODIUM IV 80 MG in SODIUM CHLORIDE 0.9% IV 500 ML 50 MG IV CONT (11:28)
[2022-07-05] MEDS: SODIUM CHLORIDE 0.9% IV 1,000 ML 125 ML IV CONT (11:45)
--- NOTE | 2022-07-05 11:45 | PC.NURSE ---
pts mayra contacted via cell phone. made aware of pts drop in bp and need for central line. per pt to have all treatment other than chest compressions. consent for central line filled out with verbal consent. en route to ed.
[2022-07-05] MEDS: MIDAZOLAM 100MG/NS 100ML(*CRX) 100 MG/100 ML BAG IV CONT (11:50)
--- NOTE | 2022-07-05 12:07 | PC.NURSE ---
Central line placement procedure by Dr. Sinclair at bedside started at this time.
--- NOTE | 2022-07-05 12:36 | PC.NURSE ---
accepted to [facility] waiting on bed placed on wait list
--- NOTE | 2022-07-05 13:04 | PC.NURSE ---
at bedside at this time.
--- NOTE | 2022-07-05 13:19 | PC.NURSE ---
pt going ER to ER
--- NOTE | 2022-07-05 13:30 | PC.NURSE ---
Addendum entered by Jen Fields 07/05/22 13:59: [id number] Accepted Lights / [place] to [facility] not [facility] Original Note: ALS transfer to [facility] [address] [facility] Med [facility] [address] [facility] truck 1321 Accepted Lights / [facility] to [facility] eta 20min' Trip # [id number]
[2022-07-05] MEDS: MICAFUNGIN SODIUM 100 MG in SODIUM CHLORIDE 0.9% IV 100 ML IVPB (13:51)
--- NOTE | 2022-07-05 14:15 | PC.NURSE ---
Addendum entered by Nohelia Benítez RN 07/05/22 14:32: [facility] here for transfer to facility at this time. Pt being transferred with drip medications fentanyl, versed, protonix, NS maintaince, and micafugal. Original Note: [facility] here for transfer to facility at this time.
[2022-07-05] MEDS: MIDAZOLAM HCL (*CRX) 2 MG/2 ML VIAL (14:26)
== END 2022-07-05 14:15 | disposition short-term general hospital (02) ==
PROVIDERS: Emergency Medicine; Emergency Provider Emergency Medicine; PCP Family Medicine
DX: K63.89 Other specified diseases of intestine (principal); K92.2 Gastrointestinal hemorrhage, unspecified; I95.9 Hypotension, unspecified; S36.113A Laceration of liver, unspecified degree, initial encounter; F03.C0 Unspecified dementia, severe, without behavioral disturbance, psychotic disturbance, mood disturbance, and anxiety; I25.10 Atherosclerotic heart disease of native coronary artery without angina pectoris; I10 Essential (primary) hypertension; I73.9 Peripheral vascular disease, unspecified; D64.9 Anemia, unspecified; E66.01 Morbid (severe) obesity due to excess calories; Z93.1 Gastrostomy status; Z86.73 Personal history of transient ischemic attack (TIA), and cerebral infarction without residual deficits; Z79.82 Long term (current) use of aspirin; I45.10 Unspecified right bundle-branch block; R94.31 Abnormal electrocardiogram [ECG] [EKG]; J18.9 Pneumonia, unspecified organism; K82.8 Other specified diseases of gallbladder; X58.XXXA Exposure to other specified factors, initial encounter
CPT/HCPCS: 31500; 36415; 36556; 36600; 74177; 80053; 82271; 82805; 82948; 83605; 83735; 83986; 84484; 85014; 85018; 85025; 85610; 85730; 86850; 86860; 86870; 86880; 86900; 86901; 86902; 87040; 93005; 96365; 96366; 96367; 96368; 96375; 96376; 99291; C1751; C9113; J1170; J1630; J2060; J2248; J2250; J2405; J2543; J2765; J3010; J3370; J3480; J7030; J7040; Q9967

== ENCOUNTER 2023-03-25 01:52 | Inpatient (IN) | payer OTHER, MEDICAID, SELFPAY ==
[2023-03-25] VITALS (13 sets, daily range): BP systolic 106–136; BP diastolic 56–95; PULSE 60–117; RESP 12–26; TEMP 36.4–37.2; O2SAT 97–100; BMI 31.8
--- NOTE | ~2023-03-25 | CT_ITS ---
EXAMINATION: CT brain wo con DATE: 03/25/2023 04:06 INDICATION: Fall. TECHNIQUE: Computed tomography (CT) of the head was performed without intravenous contrast. The mA wa s adjusted according to patient size. Iterative reconstruction technique was employed. Exam dose: 60 5.33 mGy-cm total exam DLP. COMPARISON: July 04, 2022 CT brain FINDINGS: Bilateral vertebral artery, basilar artery and bilateral carotid siphon internal carotid ar froy calcifications. There is nonspecific diminished attenuation of the cerebral white matter, likely due to chronic small vessel ischemic changes. No intracranial mass lesion or hemorrhage or cerebrovascular accident, midline shift or mass effect i s evident. No subdural or epidural hematoma is detected. No fracture or bone destruction of the cranial vault. Paranasal sinuses and mastoid air cells are unremarkable. IMPRESSION: Cerebral atherosclerosis and chronic small vessel ischemic changes of the cerebral white matter No skull fracture or acute intracranial finding Reviewed, dictated and finalized at Location A. Reviewed, dictated and finalized at location A. RATORY INSPECTOR
--- NOTE | ~2023-03-25 | US_ITS ---
EXAMINATION: US venous doppler [facility] DATE: 03/26/2023 17:27 INDICATION: bilateral leg swelling, open sores. TECHNIQUE: Grayscale images without and with compression and Doppler images of the bilateral lower ex tremity veins were obtained. COMPARISON: None FINDINGS: The bilateral distal peroneal and posterior tibial veins were not visualized due to swelling, source, and bandage material. The right common femoral vein, profunda (deep) femoral vein, femoral vein, popliteal vein, proximal p eroneal vein, proximal posterior tibial veins, and greater saphenous vein are patent. The left common femoral vein, profunda (deep) femoral vein, femoral vein, popliteal vein, proximal p eroneal vein, proximal posterior tibial veins, and greater saphenous vein are patent. IMPRESSION: The bilateral distal peroneal and posterior tibial veins could not be visualized in this examination. Otherwise patent bilateral lower extremity veins. No evidence of deep venous thrombosis in the visual ized veins. Reviewed, dictated and finalized at location K. ENG IMPRESSION: The bilateral distal peroneal and posterior tibial veins could not be visualize d in this examination. Otherwise patent bilateral lower extremity veins. No evidence of deep venous th rombosis in the visualized veins.
--- NOTE | ~2023-03-25 | CT_ITS ---
EXAMINATION: CT cervical spine wo con DATE: 03/25/2023 04:06 INDICATION: Fall. TECHNIQUE: Computed tomography (CT) of the cervical spine was performed without intravenous contrast. Automated exposure control and iterative reconstruction technique were employed. Exam dose: 450.56 mGy-cm total exam DLP. COMPARISON: None FINDINGS: Incidentally noted is a mucous retention cyst or polyp along the anterior wall of the left sphenoid sinus. The included paranasal sinuses and mastoid air cells otherwise are normally developed and aerated. C1 and C2 are normally aligned and the odontoid process is intact. No fracture or dislocation or lock ed facet or prevertebral soft tissue swelling. There is moderately severe degenerative disease at C4- 5 and particularly C5-6 and C6-7, with associated mild retrolisthesis at each of these levels. There is degenerative change at the apophyseal joints throughout the cervical spine There is uncovertebral joint spurring at C4-5, C5-6 and C6-7.. IMPRESSION: Cervical spondylosis; no fracture or dislocation or locked facet Reviewed, dictated and finalized at Location A. Reviewed, dictated and finalized at location A. ER EXPERT
--- NOTE | ~2023-03-25 | XR_ITS ---
XR chest 1V portable DATE: 03/25/2023 06:10 INDICATION: Altered mental status TECHNIQUE: Portable supine AP chest on 03/25/2023 at 0600 hours COMPARISON: July 04, 2022 portable AP chest FINDINGS: Cardiomegaly. Aortic calcification and unfolding. No pulmonary infiltrate or consolidation, pleural effusion or pulmonary vascular congestion or pneumo thorax is detected. IMPRESSION: Cardiomegaly, aortic atherosclerosis Reviewed, dictated and finalized at location A. WAY ENGINEER
--- NOTE | 2023-03-25 02:18 | PC.NURSE ---
Patient hallucinating in waiting room, and restless. Patient able to be redirected easily.
--- NOTE | 2023-03-25 04:36 | ED.FALL ---
HPI - Fall General Chief Complaint: Fall Stated Complaint: Fall a few days ago, back pain, not acting normal Time Seen by Provider: 03/25/23 04:35 Source: patient, RN notes reviewed and other (retirement documentation) Mode of arrival: EMS Limitations: altered mental status History of Present Illness HPI Narrative: It is reported the patient sustained a fall a few days ago verses rolled out of bed. There is separate report that perhaps patient has been falling frequently, unclear. He has since not been acting normal. patient reported at triage that he does not know why he was sent. He denied any pain. it was reported that patient has been refusing his medications at the long term. Related Data Home Medications Medication Instructions Recorded Confirmed acetaminophen 325 mg chewable 650 mg PO Q6H PRN Pain (Scale 12/11/21 03/25/23 tablet Score 1-3) aspirin 81 mg chewable tablet 81 mg PO DAILY 12/11/21 03/25/23 atorvastatin 80 mg tablet 80 mg PO HS 12/11/21 03/25/23 polyethylene glycol 3350 17 17 g PO TID PRN Constipation 12/11/21 03/25/23 gram/dose oral powder venlafaxine 75 mg tablet 75 mg PO BID 12/11/21 03/25/23 esomeprazole magnesium 40 mg 40 mg PO BID 04/29/22 03/25/23 capsule,delayed release lidocaine 5 % topical patch 1 patch topical DAILY 04/29/22 03/25/23 polyvinyl alcohol-povidone (PF) 1 drp EACH EYE TID 04/29/22 03/25/23 1.4 %-0.6 % eye drops in a dropperette (Refresh Classic (PF)) sodium chloride 0.65 % nasal spray 2 spray intranasal QID PRN Nasal 04/29/22 03/25/23 aerosol (Miles Nasal) Congestion bupropion HCl 75 mg tablet 75 mg PO DAILY 04/30/22 03/25/23 hydrochlorothiazide 12.5 mg tablet 12.5 mg PO DAILY 03/25/23 03/25/23 hydrocodone 5 mg-acetaminophen 325 1 tablet PO Q6H PRN Pain (Scale 03/25/23 03/25/23 mg tablet Score 7-10) olanzapine 2.5 mg tablet 2.5 mg PO HS 03/25/23 03/25/23 potassium chloride 20 mEq 20 meq PO DAILY 03/25/23 03/25/23 tablet,extended release(part/cryst) sucralfate 1 gram tablet 1 g PO ACHS 03/25/23 03/25/23 Allergies Allergy/AdvReac Type Severity Reaction Status Date / Time haloperidol [From Haldol] Allergy Unknown Verified 03/25/23 02:03 Penicillins Allergy Unknown Verified 03/25/23 02:03 [facility] Past Medical History Medical History (Updated 03/25/23 @ 18:20 by Piedad George MD) Chronic anemia Coronary artery disease [place]? in 07/2021. 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 Pericardial effusion. Deep venous thrombosis Dementia Depression Diabetic neuropathy Essential hypertension Gastroesophageal reflux disease History of GI bleed Morbid obesity due to excess calories Pericardial effusion Peripheral arterial disease Pulmonary embolism Transient ischemic attack Type 2 diabetes mellitus Diet controlled. Surgical History Surgical History History of ankle surgery History of cardiac catheterization History of gastrostomy tube placement History of laparoscopic cholecystectomy (02/01/22) History of percutaneous coronary intervention Family History Family History Father Family history of malignant neoplasm Mother Family history of heart disease in male family member before age 55 Hypertension Family history of cardiovascular disease Social History Social History (Updated 03/25/23 @ 13:30 by Lis Bergman PA-C) Social History: Surrogate medical decision maker: Rachna Almaraz, spouse. Code status: Full code. Smoking status: Never smoker Second hand tobacco smoke exposure: Yes Alcohol intake: unknown Substance use: unknown Substance use type: does not use Lack of Transportation: No Lack of Food: Never True Current Housing: I Have Housing Concerned About Future Housing: No Difficulty Paying Gas/Electric Bills: No Difficulty Paying for Meds: No Currently Unemployed:
--- NOTE | 2023-03-25 04:41 | ECG_ITS ---
Measurements Intervals [place] Rate: 97 P: 54 PA: 156 QRS: 16 QRSD: 105 T: -38 QT: 372 QTc: 473 Interpretive Statements SINUS RHYTHM OLD iNFERIOR MYOCARDIAL INFARCTION , COMPARED TO ECG 07/05/2022 04:46:55 THE PATIENT IS NO LONGER TACHYCARDIC AND IN SINUS RHYTHM Electronically Signed On 03-25-2023 13:52:00 STAFF DESIGN ENGINEER by Faye Downs M.D.
[2023-03-25 06:07] LABS: Alanine Aminotransferase 13 U/L (6-50); Albumin Level 3.8 g/dL (3.5-5.1); Alkaline Phosphatase 105 U/L (38-126); Anion Gap 10 mmol/L (8-16); Aspartate Amino Transferase 31 U/L (17-59); Bilirubin,Total 0.8 mg/dL (0.2-1.3); Blood Urea Nitrogen 19 mg/dL (9-20); Calcium 8.7 mg/dL (8.4-10.2); Carbon Dioxide 22 mmol/L (22-30); Chloride 109 mmol/L (98-107); Estimated Glomerular Filt Rate > 60; Glucose 110 mg/dL (65-110); Sodium 141 mmol/L (137-145)
[2023-03-25 06:14] LABS: Creatine Kinase 230 U/L (55-170)
[2023-03-25 06:15] LABS: INR 1.3; Partial Thromboplastin Time 27.9 SECONDS (22.3-36.8); Prothrombin Time 17.1 Seconds (11.1-14.7)
[2023-03-25 06:15] LABS: Troponin I 0.014 ng/mL (0.000-0.034)
[2023-03-25 06:34] LABS: Thyroid Stimulating Hormone < 0.015 uIU/mL (0.465-4.680)
[2023-03-25 06:55] LABS: Potassium 3.7 mmol/L (3.4-5.0)
[2023-03-25 07:26] LABS: Free T4 Free Thyroxine 3.19 ng/mL (0.78-2.19)
[2023-03-25 08:02] LABS: Appearance Urine Clear (Clear); Bacteria Urine None Seen /hpf; Bilirubin Urine Negative (Negative); Blood Urine Trace (Negative); Budding Yeast Urine Present /hpf; Calcium Oxalate Crystals Urine Present /hpf; Color Urine Dark Yellow (Yellow); Glucose Urine UA Negative (Negative); Ketones Urine Trace mg/dL (Negative); Leukocyte Esterase Ur 1+ LEU/UL (Negative); Need Manual Microscopic Reviewed; Nitrate Urine Negative (Negative); Non Pathogenic Casts 0-2; Protein Urine 1+ mg/dL (Negative); Specific Grav Ur 1.028 (1.001-1.035); Squamous Epithelial Cell Urine None seen /hpf (Few); WBC Urine 21-50 /hpf
[2023-03-25 08:03] LABS: Add Urine Microscopic? YES
[2023-03-25] MEDS: FUROSEMIDE INJ 40 MG/4 ML VIAL IV PUSH (08:22)
[2023-03-25 10:28] LABS: Basophils Percent Auto 0.5 % (0.2-1.2); Eosinophils Absolute Auto 0.3 K/mm3 (0-0.3); Eosinophils Percent Auto 3.4 % (0-4.4); Hematocrit 28.4 % (42.0-52.0); Hemoglobin 9.6 g/dL (14.0-18.0); Immature Granulocyte Absolute 0.02 K/mm3 (0.00-0.031); Immature Granulocyte Percent A 0.3 % (0-0.5); Lymphocytes Absolute Auto 2.01 K/mm3 (0.9-3.2); Lymphocytes Percent Auto 27.5 % (18.3-44.2); Mean Corpuscular HGB Conc 33.8 g/dl (32-36); Mean Corpuscular Hemoglobin 30.6 pg (26-34); Mean Corpuscular Volume 90.4 fl (80-100); Monocytes Absolute Auto 0.9 K/mm3 (0.1-0.6); Monocytes Percent Auto 12.1 % (2.6-8.5); Neutrophils Absolute Auto 4.1 K/mm3 (1.3-6.7); Neutrophils Percent Auto 56.2 % (45.5-73.1); Platelet Count Result 259 k/mm3 (150-375); Red Blood Count 3.14 M/mm3 (4.6-6.20); Red Cell Distribution Width 28.8 % (11.5-14.5); White Blood Count 7.3 K/mm3 (4.5-10.0)
[2023-03-25 10:32] LABS: Platelet Estimate Adequate (Adequate)
[2023-03-25 10:33] LABS: Anisocytosis 1+ (NORMAL); Hypochromasia 1+ (NORMAL); Schistocytes None Seen (NORMAL)
--- NOTE | 2023-03-25 13:18 | PM.IMHP ---
H&P: HPI History of Present Illness Date/Time: 03/25/23 13:00 Chief Complaint: Fall, not acting normal. Narrative: This is a 73-year-old male with history of dementia, stroke, coronary artery disease, hypertension, hyperlipidemia, peripheral vascular disease, deep venous thrombosis, pulmonary embolism, gastroesophageal reflux disease, GI bleed, anemia, and diet controlled diabetes who presented to the emergency department via EMS from [facility] for evaluation of not acting normal after a fall. He is able to provide some history however does have evidence of short-term memory loss and thus some of the following is obtained via a review of these EMR and information provided by his . According to , the patient has not been acting like himself for the last several days. He has been impulsive and trying to get out of bed to walk when he has not walked for 1.5 years although he is in physical therapy and has been walking with assistance. He has fallen 5 times in the last several days but luckily he has not injured himself. He has also been much more anxious than usual and has been yelling and swearing at staff which is very unlike him. Today he rolled out of bed and landed on the floor and he was brought in for evaluation. Upon arrival he had no complaints and he has no specific complaints with open-ended question at the time my evaluation. In the ED: He was afebrile on arrival with stable blood pressures. Labs were significant for a hemoglobin of 9.6, hematocrit 28.4%, total CK 230, TSH < 0.015, and free T4 of 3.19. CT of the head and cervical spine showed no acute findings. Chest x-ray showed cardiomegaly. He was noted to have significant lower extremity edema with weeping and he was given furosemide 40 mg IV x1. With further questioning he has chronic lower extremity edema which has gotten worse over some months and it now extends to the thighs. He denies chest pain, pleuritic pain, shortness a breath, orthopnea, and paroxysmal nocturnal dyspnea. Regarding the low TSH, he has no known history of thyroid disease. He has not noticed any enlargement of the thyroid or front of the neck. He does report feeling increasingly anxious recently and he has been having diarrhea. has noticed that his eyes seemed to be bulging and patient reports that on occasion he will have blurry or even double vision with certain gazes. He has lost some weight but cannot quantify the exact amount. Review of Systems Review of Systems: Twelve systems were reviewed. No fever, chills, or sweats. He denies recent cold and flu symptoms. Appetite has been fine. No nausea or vomiting. He reports loose stools as above. Denies dysuria. Does endorse sometimes having difficulty starting his urine stream. Denies concerns for urinary retention. Reports history of bladder stones. Except as documented, all other systems were reviewed and are negative. [facility] Past Medical History Medical History Chronic anemia Coronary artery disease [place]? in 07/2021. 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 Pericardial effusion. Deep venous thrombosis Dementia Depression Diabetic neuropathy Essential hypertension Gastroesophageal reflux disease History of GI bleed Morbid obesity due to excess calories Pericardial effusion Peripheral arterial disease Pulmonary embolism Transient ischemic attack Type 2 diabetes mellitus Diet controlled. Surgical History Surgical History History of ankle surgery History of cardiac catheterization History of gastrostomy tube placement History of laparoscopic cholecystectomy (02/01/22) History of percutaneous coronary intervention Family History Family History Father Family history of malignant neoplasm Mother Family history of heart disease in male fam
[2023-03-25 15:48] LABS: NT Pro B Type Natriuretic Pept 4660 pg/mL (19.9-100)
[2023-03-25 16:06] LABS: Amphetamine Screen Urine Negative (Negative); Barbiturate Screen Urine Negative (Negative); Benzodiazepines Screen Urine Negative (Negative); Cannabinoid Screen Urine Negative (Negative); Cocaine Screen Urine Negative (Negative); Methadone Screen Urine Negative (Negative); Opiate Screen Urine Positive (Negative); Phencyclidine Screen Urine Negative (Negative)
[2023-03-25 16:45] LABS: Folic Acid 6.4 ng/mL (2.76->20)
--- NOTE | 2023-03-25 19:53 | PC.NURSE ---
Pt chart from his facility states he has a current g tube. Pt and his state no, that he had it removed in December. It had been placed for anorexia and feeds. Pt chart states diabetic and that he follows a mechanical soft diet. Hospitalist made aware.
[2023-03-25] MEDS: OLANZapine 2.5 MG TABLET PO (21:33)
[2023-03-25] MEDS: SUCRALFATE 1 GM TABLET PO (21:33)
[2023-03-25] MEDS: TAMSULOSIN HCL 0.4 MG CAPSULE PO (21:34)
[2023-03-25] MEDS: ATORVASTATIN 40 MG TABLET 80 MG PO (21:34)
[2023-03-25] MEDS: VENLAFAXINE HCL 75 MG TABLET PO (21:36)
[2023-03-26] VITALS (9 sets, daily range): BP systolic 105–119; BP diastolic 52–70; PULSE 81–110; RESP 14–18; TEMP 36.6–37.3; O2SAT 94–98
[2023-03-26] MEDS: SUCRALFATE 1 GM TABLET PO ×4 (05:57→19:52)
[2023-03-26 10:02] LABS: Hematocrit 24.7 % (42.0-52.0); Hemoglobin 9.2 g/dL (14.0-18.0); Mean Corpuscular HGB Conc 37.2 g/dl (32-36); Mean Corpuscular Hemoglobin 35.8 pg (26-34); Mean Corpuscular Volume 96.1 fl (80-100); Platelet Count Result 249 k/mm3 (150-375); Red Blood Count 2.57 M/mm3 (4.6-6.20); Red Cell Distribution Width 32.5 % (11.5-14.5); White Blood Count 6.7 K/mm3 (4.5-10.0)
[2023-03-26] MEDS: buPROPion HCL 75 MG TABLET PO (10:10)
[2023-03-26] MEDS: VENLAFAXINE HCL 75 MG TABLET PO ×2 (10:10→17:29)
[2023-03-26] MEDS: FINASTERIDE 5 MG TABLET PO (10:10)
[2023-03-26] MEDS: ASPIRIN 81 MG CHEWABLE TABLET PO (10:10)
[2023-03-26] MEDS: methiMAzole 5 MG TAB PO (10:10)
[2023-03-26] MEDS: POTASSIUM CHLORIDE 20 MEQ ER TABLET PO (10:11)
[2023-03-26] MEDS: PANTOPRAZOLE 40 MG TABLET PO ×2 (10:11→17:29)
[2023-03-26] MEDS: FUROSEMIDE INJ 40 MG/4 ML VIAL 20 MG IV PUSH (10:11)
[2023-03-26] MEDS: LIDOCAINE 5% PATCH 1 PATCH TOPICAL (10:11)
[2023-03-26 10:21] LABS: Anion Gap 13 mmol/L (8-16); Blood Urea Nitrogen 16 mg/dL (9-20); Calcium 8.8 mg/dL (8.4-10.2); Carbon Dioxide 22 mmol/L (22-30); Chloride 108 mmol/L (98-107); Creatine Kinase 108 U/L (55-170); Estimated CRCL calculation 63 ml/min; Estimated Glomerular Filt Rate > 60; Glucose 117 mg/dL (65-110); Magnesium 2.2 mg/dL (1.6-2.3); Sodium 143 mmol/L (137-145)
[2023-03-26 10:24] LABS: Iron 30 ug/dL (49-181)
[2023-03-26] MEDS: ARTIFICIAL TEARS OPHTH SOLN 15 ML BOTTLE 1 DROP EACH EYE ×4 (10:32→19:57)
[2023-03-26 10:33] LABS: Percent Iron Saturation 9 % (20-50)
[2023-03-26] MEDS: PERFLUTREN LIPID MICROSPHERES 1.5 ML VIAL DILUTED TO 10 ML TOTAL VOLUME IV PUSH (13:15)
--- NOTE | 2023-03-26 13:18 | ECHO_ITS ---
Patient Info Name: Juan Pablo Almaraz Age: 73 years : 1950 Gender: Male BP: 105 / 57 mmHg Heart Rhythm: Tachycardia Technical Quality: Fair Exam Date: 03/26/2023 1:30 PM Exam Location: Echo Lab Patient Status: Inpatient Admit Date: 03/25/2023 Staff Ordering Physician: Lis Bergman PA-C Post Acute Care Nurse Practitioner: Emerald Collier RDCS Attending Provider: Farhad Kim MD Referring Physician: Madalyn LANDAVERDE; Exam Type: CA echo dop color flow w con Study Info Indications - edema, hyperthyroid, cad, htn Complete two-dimensional, color flow and Doppler transthoracic echocardiogram is performed with contrast to opacify the left ventricle and to improve the deliniation of the left ventricle endocardial borders. Contrast/Agitated Saline Contrast/Ag. Saline: Definity Amount: 2.00 ml Administered By: Emerald Collier RDCS Existing IV Access: Yes IV Access Condition: patent with no signs of infiltration Summary 1. Technically difficult study. 2. Left ventricular chamber dimension is normal. 3. Left ventricular systolic function is moderately reduced, estimated at 30-35%. 4. There is mildly increased left ventricular wall thickness. 5. Right ventricular chamber dimension is normal. 6. Right ventricular systolic function is reduced. 7. There is mild tricuspid valve regurgitation. Left Ventricle Left ventricular chamber dimension is normal. Left ventricular systolic function is moderately reduced, estimated at 30-35%. There is mildly increased left ventricular wall thickness. Right Ventricle Right ventricular chamber dimension is normal. Right ventricular systolic function is reduced. Left Atria Left atrial chamber dimension is normal. Right Atria Right atrial chamber dimension is normal. Atrial Septum Intact interatrial septum visualized by color flow imaging. Aortic Valve The aortic valve is not well visualized. There is no aortic valve stenosis. There is no aortic valve regurgitation. There is moderate aortic valve calcification. Pulmonic Valve The pulmonic valve is not well visualized. Mitral Valve There is trace mitral valve regurgitation. Tricuspid Valve There is mild tricuspid valve regurgitation. Pericardium/Pleural There is no pericardial effusion. Inferior Vena Cava Normal inferior vena cava with <50% collapse upon inspiration consistent with elevated right atrial pressure, 8 mmHg. Aorta The aortic root size at the sinus of Valsalva is normal. Left Ventricular Outflow Tract Name Value Normal LVOT 2D LVOT Diameter 2.00 cm LVOT Doppler LVOT Peak Gradient 3 mmHg LVOT Mean Gradient 1 mmHg LVOT VTI 12.95 cm LVOT VTI/AV VTI Ratio 0.64 LVOT Stroke Volume 40.68 ml LVOT CO 4.36 l/min Pulmonic Valve Name Value Normal PV Doppler
--- NOTE | 2023-03-26 14:40 | IVDEFINITY ---
Prior to administration of IV Definity the patient was educated on the risks and benefits of the imaging enhancing agent including potential adverse side effects. The patient verbalized understanding. Allergies were verified. No exclusion criteria were identified and at least one of the following inclusion criteria were met: 1) physician request, 2) patient technically difficult to image (per the [place] [employer] guidelines of two or more segments not discernable within the apical view), or 3) questionable left ventricular function. ?
--- NOTE | 2023-03-26 15:08 | PM.IMPN ---
Progress Note: A&P Assessment and Plan (1) Hyperthyroidism: Code(s): E05.90 - Thyrotoxicosis, unspecified without thyrotoxic crisis or storm Status: Acute Assessment and Plan: A new diagnosis for the patient. TSH is essentially undetectable with a free T4 of 3.19. Free T3 is pending. He is already on a beta-ruben which will be continued. Start methimazole 5 mg daily. Check thyroid stimulating immunoglobulin and thyrotropin receptor antibodies. Will need endocrinology follow-up as an outpatient. (2) Frequent falls: Code(s): R29.6 - Repeated falls Status: Acute Assessment and Plan: Patient has had 5 falls in the last several days due to impulsivity. He has been doing therapy recently and feels that he should be able to get up and walk. Initiate fall precautions. PT/OT consulted. (3) Change in behavior: Code(s): R46.89 - Other symptoms and signs involving appearance and behavior Status: Acute Assessment and Plan: The last several days has been impulsive, anxious, and acting out as detailed above. He does not appear to have an acute underlying infection though urinalysis is a bit abnormal. No focal findings noted on exam to suggest stroke. Findings of hyperthyroidism on labs today which could be responsive. (4) Chronic anemia: Code(s): D64.9 - Anemia, unspecified Status: Acute Assessment and Plan: Check iron studies, B12, and folate. Monitor. (5) Lower extremity edema: Code(s): R60.0 - Localized edema Status: Acute Assessment and Plan: He has significant pitting edema up to the thighs. Received furosemide 40 mg x 1 in ED. Continue IV diuresis with close monitoring of volume status, renal function, and electrolytes. Lower extremity venous Doppler ultrasounds ordered to rule out DVT. Echocardiogram also ordered to evaluate cardiac function. (6) Hypertension: Code(s): I10 - Essential (primary) hypertension Status: Acute Assessment and Plan: Blood pressures were reviewed and they are stable. Antihypertensives will be reviewed and resumed as appropriate. Subjective Date/time seen: 03/26/23 15:08 Interval history: Patient was seen during the morning rounds today. Patient is feeling slightly better. No shortness of breath or chest pain. Mood stable Review of Systems Review of Systems: Twelve systems were reviewed. No fever, chills, or sweats. He denies recent cold and flu symptoms. Appetite has been fine. No nausea or vomiting. He reports loose stools as above. Denies dysuria. Does endorse sometimes having difficulty starting his urine stream. Denies concerns for urinary retention. Reports history of bladder stones. Except as documented, all other systems were reviewed and are negative. Exam Narrative: General:?Well-developed male sitting up in bed in no acute distress. Weight: 95.2 kg. BMI: 31.9. HEENT:??PERRL, EOMI. Sclera anicteric.?Mild proptosis. Oral mucosa moist.? Edentulous. Neck:??Supple.? No JVD or obvious bruits. Thyroid does not feel significantly enlarged. Respiratory:?Lungs are clear to auscultation bilaterally. Cardiovascular:??Regular rate and rhythm with S1-S2.? Gastrointestinal:??Abdomen is soft, nontender, and nondistended with positive bowel sounds.? Skin:??Warm and dry.?Bilateral lower extremities are erythematous and weeping with some shallow skin tears. Extremities:??No cyanosis or clubbing. Significant pitting edema to the thighs. Radial pulses palpable. Pedal pulses difficult to palpate due to swelling but feet are warm and perfused. Neurological:??Alert to name and date of .? He is aware that he is at the hospital.? Cranial nerves 2-12 are grossly intact. No gross focal deficits to casual conversation. Psychiatric: ??Pleasantly confused and cooperative. Appropriate mood. Objective Data Vital Signs Vital Signs: Vital Signs - 24 hr 03/25/23 16:00 03/02
[2023-03-26] MEDS: HYDROcodone/acetaminophen (*CRX) 5-325 MG TABLET 1 TAB PO ×2 (15:59→19:51)
[2023-03-26] MEDS: POLYSACCHARIDE IRON COMPLEX 150 MG CAPSULE PO (17:29)
[2023-03-26] MEDS: TAMSULOSIN HCL 0.4 MG CAPSULE PO (19:52)
[2023-03-26] MEDS: ATORVASTATIN 40 MG TABLET 80 MG PO (19:52)
[2023-03-26] MEDS: OLANZapine 2.5 MG TABLET PO (19:55)
[2023-03-27] VITALS (7 sets, daily range): BP systolic 99–120; BP diastolic 60–65; PULSE 81–96; RESP 16–22; TEMP 36.8–37.2; O2SAT 97–99
[2023-03-27] MEDS: HYDROcodone/acetaminophen (*CRX) 5-325 MG TABLET 1 TAB PO ×2 (06:53→17:00)
[2023-03-27] MEDS: SUCRALFATE 1 GM TABLET PO ×4 (06:54→19:52)
[2023-03-27] MEDS: PANTOPRAZOLE 40 MG TABLET PO ×2 (10:59→17:00)
[2023-03-27] MEDS: VENLAFAXINE HCL 75 MG TABLET PO ×2 (10:59→17:00)
[2023-03-27] MEDS: POTASSIUM CHLORIDE 20 MEQ ER TABLET PO (10:59)
[2023-03-27] MEDS: ASPIRIN 81 MG CHEWABLE TABLET PO (10:59)
[2023-03-27] MEDS: methiMAzole 5 MG TAB PO (10:59)
[2023-03-27] MEDS: buPROPion HCL 75 MG TABLET PO (10:59)
[2023-03-27] MEDS: POLYSACCHARIDE IRON COMPLEX 150 MG CAPSULE PO ×2 (10:59→17:00)
[2023-03-27] MEDS: FINASTERIDE 5 MG TABLET PO (10:59)
[2023-03-27] MEDS: FUROSEMIDE INJ 40 MG/4 ML VIAL 20 MG IV PUSH (11:00)
[2023-03-27] MEDS: LIDOCAINE 5% PATCH 1 PATCH TOPICAL (11:00)
--- NOTE | 2023-03-27 11:43 | PM.IMPN ---
Progress Note: A&P Assessment and Plan (1) Hyperthyroidism: Code(s): E05.90 - Thyrotoxicosis, unspecified without thyrotoxic crisis or storm Status: Acute Assessment and Plan: A new diagnosis for the patient. TSH is essentially undetectable with a free T4 of 3.19. Free T3 is pending. He is already on a beta-ruben which will be continued. Start methimazole 5 mg daily. Check thyroid stimulating immunoglobulin and thyrotropin receptor antibodies. Will need endocrinology follow-up as an outpatient. Clinically improving, will continue current treatment. (2) Frequent falls: Code(s): R29.6 - Repeated falls Status: Acute Assessment and Plan: Patient has had 5 falls in the last several days due to impulsivity. He has been doing therapy recently and feels that he should be able to get up and walk. Initiate fall precautions. PT/OT consulted. (3) Change in behavior: Code(s): R46.89 - Other symptoms and signs involving appearance and behavior Status: Acute Assessment and Plan: The last several days has been impulsive, anxious, and acting out as detailed above. He does not appear to have an acute underlying infection though urinalysis is a bit abnormal. No focal findings noted on exam to suggest stroke. Findings of hyperthyroidism on labs today which could be responsive. Patient patient behaviour has improved, will consider a treatment monitor closely (4) Chronic anemia: Code(s): D64.9 - Anemia, unspecified Status: Acute Assessment and Plan: Check iron studies, B12, and folate. Monitor. (5) Lower extremity edema: Code(s): R60.0 - Localized edema Status: Acute Assessment and Plan: DVT study negative. Continue current treatment. (6) Hypertension: Code(s): I10 - Essential (primary) hypertension Status: Acute Assessment and Plan: Blood pressures were reviewed and they are stable. Antihypertensives will be reviewed and resumed as appropriate. Subjective Date/time seen: 03/27/23 11:43 Interval history: Patient was seen during the morning rounds today. No new overnight complaints. Patient is feeling slightly better. No shortness of breath or chest pain. Mood stable Review of Systems Review of Systems: Twelve systems were reviewed. No fever, chills, or sweats. He denies recent cold and flu symptoms. Appetite has been fine. No nausea or vomiting. He reports loose stools as above. Denies dysuria. Does endorse sometimes having difficulty starting his urine stream. Denies concerns for urinary retention. Reports history of bladder stones. Except as documented, all other systems were reviewed and are negative. Exam Narrative: General:?Well-developed male sitting up in bed in no acute distress. Weight: 95.2 kg. BMI: 31.9. HEENT:??PERRL, EOMI. Sclera anicteric.?Mild proptosis. Oral mucosa moist.? Edentulous. Neck:??Supple.? No JVD or obvious bruits. Thyroid does not feel significantly enlarged. Respiratory:?Lungs are clear to auscultation bilaterally. Cardiovascular:??Regular rate and rhythm with S1-S2.? Gastrointestinal:??Abdomen is soft, nontender, and nondistended with positive bowel sounds.? Skin:??Warm and dry.?Bilateral lower extremities are erythematous and weeping with some shallow skin tears. Extremities:??No cyanosis or clubbing. Significant pitting edema to the thighs. Radial pulses palpable. Pedal pulses difficult to palpate due to swelling but feet are warm and perfused. Neurological:??Alert to name and date of .? He is aware that he is at the hospital.? Cranial nerves 2-12 are grossly intact. No gross focal deficits to casual conversation. Psychiatric: ??Pleasantly confused and cooperative. Appropriate mood. Objective Data Vital Signs Vital Signs: Vital Signs - 24 hr 03/26/23 14:00 03/26/23 12:00 03/26/23 16:00 Temperature 37.3 C Pulse Rate 107 H 110 H 110 H Respirat
[2023-03-27] MEDS: ARTIFICIAL TEARS OPHTH SOLN 15 ML BOTTLE 1 DROP EACH EYE ×2 (12:55→17:00)
[2023-03-27] MEDS: OLANZapine 2.5 MG TABLET PO (19:51)
[2023-03-27] MEDS: ATORVASTATIN 40 MG TABLET 80 MG PO (19:52)
[2023-03-27] MEDS: TAMSULOSIN HCL 0.4 MG CAPSULE PO (19:52)
[2023-03-28] MEDS: HYDROcodone/acetaminophen (*CRX) 5-325 MG TABLET 1 TAB PO ×3 (05:55→18:58)
[2023-03-28] MEDS: SUCRALFATE 1 GM TABLET PO ×3 (05:56→16:13)
[2023-03-28 06:00] VITALS: BP 121/61; PULSE 86; RESP 16; TEMP 36.9; O2SAT 100
[2023-03-28 09:24] LABS: Alanine Aminotransferase 11 U/L (6-50); Albumin Level 3.2 g/dL (3.5-5.1); Alkaline Phosphatase 97 U/L (38-126); Anion Gap 8 mmol/L (8-16); Aspartate Amino Transferase 19 U/L (17-59); Bilirubin,Total 0.3 mg/dL (0.2-1.3); Blood Urea Nitrogen 21 mg/dL (9-20); Calcium 8.3 mg/dL (8.4-10.2); Carbon Dioxide 25 mmol/L (22-30); Chloride 108 mmol/L (98-107); Estimated CRCL calculation 53 ml/min; Estimated Glomerular Filt Rate 59; Glucose 116 mg/dL (65-110); Potassium 3.6 mmol/L (3.4-5.0); Sodium 141 mmol/L (137-145)
--- NOTE | 2023-03-28 11:10 | PM.IMPN ---
Progress Note: A&P Assessment and Plan (1) Hyperthyroidism: Code(s): E05.90 - Thyrotoxicosis, unspecified without thyrotoxic crisis or storm Status: Acute Assessment and Plan: A new diagnosis for the patient. TSH is essentially undetectable with a free T4 of 3.19. Free T3 is pending. He is already on a beta-ruben which will be continued. Start methimazole 5 mg daily. Check thyroid stimulating immunoglobulin and thyrotropin receptor antibodies. Will need endocrinology follow-up as an outpatient. Clinically improving, will continue current treatment. (2) Frequent falls: Code(s): R29.6 - Repeated falls Status: Acute Assessment and Plan: Patient has had 5 falls in the last several days due to impulsivity. He has been doing therapy recently and feels that he should be able to get up and walk. Initiate fall precautions. PT/OT consulted. (3) Change in behavior: Code(s): R46.89 - Other symptoms and signs involving appearance and behavior Status: Acute Assessment and Plan: The last several days has been impulsive, anxious, and acting out as detailed above. He does not appear to have an acute underlying infection though urinalysis is a bit abnormal. No focal findings noted on exam to suggest stroke. Findings of hyperthyroidism on labs today which could be responsive. Patient patient behaviour has improved, will continue current treatment (4) Chronic anemia: Code(s): D64.9 - Anemia, unspecified Status: Acute Assessment and Plan: Check iron studies, B12, and folate. Monitor. (5) Lower extremity edema: Code(s): R60.0 - Localized edema Status: Acute Assessment and Plan: DVT study negative. Continue current treatment. (6) Hypertension: Code(s): I10 - Essential (primary) hypertension Status: Acute Assessment and Plan: Blood pressures were reviewed and they are stable. Antihypertensives will be reviewed and resumed as appropriate. Plan Plan is to continue current treatment. Patient is getting better. Will start physical therapy. Possible discharge to [facility] in the morning. Outpatient appointment with Endocrine. Subjective Date/time seen: 03/28/23 11:10 Interval history: Patient was seen during the morning rounds today. No new overnight complaints. Patient is feeling slightly better. No shortness of breath or chest pain. Mood stable Review of Systems Review of Systems: Twelve systems were reviewed. No fever, chills, or sweats. He denies recent cold and flu symptoms. Appetite has been fine. No nausea or vomiting. He reports loose stools as above. Denies dysuria. Does endorse sometimes having difficulty starting his urine stream. Denies concerns for urinary retention. Reports history of bladder stones. Except as documented, all other systems were reviewed and are negative. Exam Narrative: General:?Well-developed male sitting up in bed in no acute distress. Weight: 95.2 kg. BMI: 31.9. HEENT:??PERRL, EOMI. Sclera anicteric.?Mild proptosis. Oral mucosa moist.? Edentulous. Neck:??Supple.? No JVD or obvious bruits. Thyroid does not feel significantly enlarged. Respiratory:?Lungs are clear to auscultation bilaterally. Cardiovascular:??Regular rate and rhythm with S1-S2.? Gastrointestinal:??Abdomen is soft, nontender, and nondistended with positive bowel sounds.? Skin:??Warm and dry.?Bilateral lower extremities are erythematous and weeping with some shallow skin tears. Extremities:??No cyanosis or clubbing. Significant pitting edema to the thighs. Radial pulses palpable. Pedal pulses difficult to palpate due to swelling but feet are warm and perfused. Neurological:??Alert to name and date of .? He is aware that he is at the hospital.? Cranial nerves 2-12 are grossly intact. No gross focal deficits to casual conversation. Psychiatric: ??Pleasantly confused and cooperative. Appropriate mood.
[2023-03-28] MEDS: FLUCONAZOLE 100 MG TABLET PO (11:39)
[2023-03-28] MEDS: POTASSIUM CHLORIDE 20 MEQ ER TABLET PO (11:42)
[2023-03-28] MEDS: ASPIRIN 81 MG CHEWABLE TABLET PO (11:42)
[2023-03-28] MEDS: buPROPion HCL 75 MG TABLET PO (11:42)
[2023-03-28] MEDS: PANTOPRAZOLE 40 MG TABLET PO ×2 (11:43→16:15)
[2023-03-28] MEDS: POLYSACCHARIDE IRON COMPLEX 150 MG CAPSULE PO ×2 (11:43→16:14)
[2023-03-28] MEDS: VENLAFAXINE HCL 75 MG TABLET PO ×2 (11:43→16:15)
[2023-03-28] MEDS: FINASTERIDE 5 MG TABLET PO (11:43)
[2023-03-28] MEDS: methiMAzole 5 MG TAB PO (11:44)
[2023-03-28] MEDS: ARTIFICIAL TEARS OPHTH SOLN 15 ML BOTTLE 1 DROP EACH EYE ×3 (11:45→18:59)
[2023-03-28 14:00] VITALS: BP 110/64; PULSE 93; RESP 16; TEMP 36.8; O2SAT 97
[2023-03-28 14:07] LABS: Thyroid Stimulating Immunoglob 387 % baseline (<140)
[2023-03-28] MEDS: polyethylene glycoL 3350 17 GM POWD.PACK PO (16:13)
[2023-03-28 18:37] LABS: Thyrotropin Receptor Antibody 11.43 IU/L (<=2.00)
[2023-03-28] MEDS: OLANZapine 2.5 MG TABLET PO (21:45)
[2023-03-28] MEDS: TAMSULOSIN HCL 0.4 MG CAPSULE PO (21:45)
[2023-03-28 22:00] VITALS: BP 117/79; PULSE 97; RESP 18; TEMP 36.6; O2SAT 99
[2023-03-29] MEDS: HYDROcodone/acetaminophen (*CRX) 5-325 MG TABLET 1 TAB PO ×3 (05:07→17:18)
[2023-03-29 06:00] VITALS: BP 116/74; PULSE 91; RESP 18; TEMP 36; O2SAT 100
[2023-03-29] MEDS: polyethylene glycoL 3350 17 GM POWD.PACK PO ×2 (07:06→11:01)
--- NOTE | 2023-03-29 09:24 | P.PNIM_ITS ---
Progress Note: A&P Assessment and Plan (1) Hyperthyroidism: Code(s): E05.90 - Thyrotoxicosis, unspecified without thyrotoxic crisis or storm Status: Acute Assessment and Plan: 03/28/23: * A new diagnosis for the patient. TSH is essentially undetectable with a free T4 of 3.19. Free T3 is pending. He is already on a beta-ruben which will be continued. Start methimazole 5 mg daily. Check thyroid stimulating i mmunoglobulin and thyrotropin receptor antibodies. Will need endocrinology follow-up as an outpatient. * Clinically improving, will continue current treatment. 03/29/23: * Continue methimazole 5mg daily * T4-3.19 * TSH <0.015 * Awaiting results on T3 * thyroid stimulating immunoglobulin 387 * TSH receptor Ab 11.43 * Will need small engine technician upon discharge (2) Frequent falls: Code(s): R29.6 - Repeated falls Status: Acute Assessment and Plan: 03/28/23: * Patient has had 5 falls in the last several days due to impulsivity. He has been doing therapy recently and feels that he should be able to get up and walk. * Initiate fall precautions. PT/OT consulted. 03/29/23: * PT/OT evaluation * Continue fall precautions (3) Change in behavior: Code(s): R46.89 - Other symptoms and signs involving appearance and behavior Status: Acute Assessment and Plan: 03/28/23: * The last several days has been impulsive, anxious, and acting out as detailed above. He does not appear to have an acute underlying infection though urinalysis is a bit abnormal. No focal findings noted on exam to suggest stroke. Findings of hyperthyroidism on labs today which could be responsive. * Patient patient behaviour has improved, will continue current treatment 03/29/23: * Resolved with treatment (4) Chronic anemia: Code(s): D64.9 - Anemia, unspecified Status: Acute Assessment and Plan: 03/28/23: * Check iron studies, B12, and folate. Monitor. 03/29/23: * Iron 30, TIBC 341, ferritin 14.50, vitamin B 12 271, folate 6.4 * Continue Iron complex BID (5) Lower extremity edema: Code(s): R60.0 - Localized edema Status: Acute Assessment and Plan: 03/28/23: * DVT study negative. * Continue current treatment. 03/29/23: * continue with current treatment plan (6) Hypertension: Code(s): I10 - Essential (primary) hypertension Status: Acute Assessment and Plan: 03/28/23: * Blood pressures were reviewed and they are stable. Antihypertensives will be reviewed and resumed as appropriate. 03/29/23: * 110/64-117/79 * Continue with current treatment plan. Time Spent With Patient Time with patient: Greater than 35 minutes Subjective Date/time seen: 03/29/23 09:24 Interval history: This is a 73 year old male who presented to the hospital on 03/25/23 for evaluation of a change in his behavior and frequent falls. Behavioral issues include being impulsive, anxious, and acting out. Work up in the hospital include a CXR which shown cardiomegaly, aortic atherosclerosis. CT of head is negative for any acute intracranial findings, just age related changes. Cervical spine CT negative. Venous doppler was also negative. Echo showing LV systolic function moderately reduced with EF 30-35%%, RV systolic function reduced. Labs include Hgb 9.6, Hct 28.4, Chlor 109, total CK 230, proBNP 4660, TSH < 0.015, Free T4 3.19, thyroid stim immunoglobulin 387, free T3 is pending, folate 6.4, vitamin B12 271 TSH rec
--- NOTE | 2023-03-29 09:24 | PM.IMPN ---
Progress Note: A&P Assessment and Plan (1) Hyperthyroidism: Code(s): E05.90 - Thyrotoxicosis, unspecified without thyrotoxic crisis or storm Status: Acute Assessment and Plan: 03/28/23: A new diagnosis for the patient. TSH is essentially undetectable with a free T4 of 3.19. Free T3 is pending. He is already on a beta-ruben which will be continued. Start methimazole 5 mg daily. Check thyroid stimulating immunoglobulin and thyrotropin receptor antibodies. Will need endocrinology follow-up as an outpatient. Clinically improving, will continue current treatment. 03/29/23: Continue methimazole 5mg daily T4-3.19 TSH <0.015 Awaiting results on T3 thyroid stimulating immunoglobulin 387 TSH receptor Ab 11.43 Will need chemical project engineer upon discharge (2) Frequent falls: Code(s): R29.6 - Repeated falls Status: Acute Assessment and Plan: 03/28/23: Patient has had 5 falls in the last several days due to impulsivity. He has been doing therapy recently and feels that he should be able to get up and walk. Initiate fall precautions. PT/OT consulted. 03/29/23: PT/OT evaluation Continue fall precautions (3) Change in behavior: Code(s): R46.89 - Other symptoms and signs involving appearance and behavior Status: Acute Assessment and Plan: 03/28/23: The last several days has been impulsive, anxious, and acting out as detailed above. He does not appear to have an acute underlying infection though urinalysis is a bit abnormal. No focal findings noted on exam to suggest stroke. Findings of hyperthyroidism on labs today which could be responsive. Patient patient behaviour has improved, will continue current treatment 03/29/23: Resolved with treatment (4) Chronic anemia: Code(s): D64.9 - Anemia, unspecified Status: Acute Assessment and Plan: 03/28/23: Check iron studies, B12, and folate. Monitor. 03/29/23: Iron 30, TIBC 341, ferritin 14.50, vitamin B 12 271, folate 6.4 Continue Iron complex BID (5) Lower extremity edema: Code(s): R60.0 - Localized edema Status: Acute Assessment and Plan: 03/28/23: DVT study negative. Continue current treatment. 03/29/23: continue with current treatment plan (6) Hypertension: Code(s): I10 - Essential (primary) hypertension Status: Acute Assessment and Plan: 03/28/23: Blood pressures were reviewed and they are stable. Antihypertensives will be reviewed and resumed as appropriate. 03/29/23: 110/64-117/79 Continue with current treatment plan. Time Spent With Patient Time with patient: Greater than 35 minutes Subjective Date/time seen: 03/29/23 09:24 Interval history: This is a 73 year old male who presented to the hospital on 03/25/23 for evaluation of a change in his behavior and frequent falls. Behavioral issues include being impulsive, anxious, and acting out. Work up in the hospital include a CXR which shown cardiomegaly, aortic atherosclerosis. CT of head is negative for any acute intracranial findings, just age related changes. Cervical spine CT negative. Venous doppler was also negative. Echo showing LV systolic function moderately reduced with EF 30-35%%, RV systolic function reduced. Labs include Hgb 9.6, Hct 28.4, Chlor 109, total CK 230, proBNP 4660, TSH < 0.015, Free T4 3.19, thyroid stim immunoglobulin 387, free T3 is pending, folate 6.4, vitamin B12 271 TSH receptor Ab 11.43. UA shown 1+ protein, trace ketones, 1+ leukocytes, 11-20 urine RBC, 21-50 urine WBC. UDS was positive for opiates. Urine culture showing Heena glabrata. Patient placed on Metoprolol initially due to tachycardia. He was also placed on methimazole 5 mg daily. On examination today patient is alert and oriented x3, lying in the bed. He states that he is feeling much better today. He denies any new complaints at this time. VSS, he is afebrile, currently in room a
[2023-03-29] MEDS: FINASTERIDE 5 MG TABLET PO (09:40)
[2023-03-29] MEDS: buPROPion HCL 75 MG TABLET PO (09:41)
[2023-03-29] MEDS: POTASSIUM CHLORIDE 20 MEQ ER TABLET PO (09:41)
[2023-03-29] MEDS: VENLAFAXINE HCL 75 MG TABLET PO ×2 (09:41→17:16)
[2023-03-29] MEDS: PANTOPRAZOLE 40 MG TABLET PO ×2 (09:41→17:16)
[2023-03-29] MEDS: methiMAzole 5 MG TAB PO (09:41)
[2023-03-29] MEDS: ASPIRIN 81 MG CHEWABLE TABLET PO (09:41)
[2023-03-29] MEDS: POLYSACCHARIDE IRON COMPLEX 150 MG CAPSULE PO ×2 (09:41→17:15)
[2023-03-29] MEDS: FLUCONAZOLE 100 MG TABLET PO (09:41)
[2023-03-29] MEDS: LIDOCAINE 5% PATCH 1 PATCH TOPICAL (09:42)
[2023-03-29] MEDS: FUROSEMIDE INJ 40 MG/4 ML VIAL 20 MG IV PUSH (09:42)
[2023-03-29] MEDS: ARTIFICIAL TEARS OPHTH SOLN 15 ML BOTTLE 1 DROP EACH EYE (10:04)
[2023-03-29 14:00] VITALS: BP 92/61; PULSE 96; RESP 20; TEMP 36.4; O2SAT 99
[2023-03-29] MEDS: OLANZapine 2.5 MG TABLET PO (20:22)
[2023-03-29 20:27] VITALS: BP 105/59; PULSE 92; RESP 18; TEMP 36.5; O2SAT 99
[2023-03-30] MEDS: HYDROcodone/acetaminophen (*CRX) 5-325 MG TABLET 1 TAB PO ×2 (00:31→08:25)
[2023-03-30 01:48] VITALS: BP 148/93; PULSE 107; RESP 16; TEMP 36.6; O2SAT 100
[2023-03-30 01:57] VITALS: BP 141/77; PULSE 101; RESP 16; O2SAT 98
--- NOTE | 2023-03-30 01:58 | ECG_ITS ---
Measurements Intervals [place] Rate: 98 P: 23 FL: 180 QRS: 2 QRSD: 110 T: -59 QT: 341 QTc: 436 Interpretive Statements SINUS RHYTHM INFERIOR MYOCARDIAL INFARCTION , OLD [40+ ms Q WAVE AND/OR ST/T ABNORMALITY IN II/aVF] COMPARED TO ECG 03/25/2023 04:58:18 NO SIGNIFICANT CHANGES Electronically Signed On 03-31-2023 14:26:42 DIRECTOR OF CORPORATE RESPONSIBILITY by Luis Miguel Vincent M.D.
[2023-03-30 04:37] VITALS: BP 117/91; PULSE 101; RESP 18; TEMP 36.6; O2SAT 100
[2023-03-30] MEDS: FINASTERIDE 5 MG TABLET PO (09:04)
[2023-03-30] MEDS: buPROPion HCL 75 MG TABLET PO (09:04)
[2023-03-30] MEDS: POTASSIUM CHLORIDE 20 MEQ ER TABLET PO (09:04)
[2023-03-30] MEDS: VENLAFAXINE HCL 75 MG TABLET PO (09:04)
[2023-03-30] MEDS: ASPIRIN 81 MG CHEWABLE TABLET PO (09:04)
[2023-03-30] MEDS: methiMAzole 5 MG TAB PO (09:04)
[2023-03-30] MEDS: LIDOCAINE 5% PATCH 1 PATCH TOPICAL (09:05)
[2023-03-30] MEDS: PANTOPRAZOLE 40 MG TABLET PO (09:05)
[2023-03-30] MEDS: POLYSACCHARIDE IRON COMPLEX 150 MG CAPSULE PO (09:05)
[2023-03-30] MEDS: ARTIFICIAL TEARS OPHTH SOLN 15 ML BOTTLE 1 DROP EACH EYE (09:05)
[2023-03-30] MEDS: FLUCONAZOLE 100 MG TABLET PO (09:05)
[2023-03-30 09:11] LABS: Basophils Percent Auto 0.5 % (0.2-1.2); Eosinophils Absolute Auto 0.7 K/mm3 (0-0.3); Eosinophils Percent Auto 12.3 % (0-4.4); Hematocrit 25.5 % (42.0-52.0); Hemoglobin 8.6 g/dL (14.0-18.0); Immature Granulocyte Absolute 0.01 K/mm3 (0.00-0.031); Immature Granulocyte Percent A 0.2 % (0-0.5); Lymphocytes Absolute Auto 1.81 K/mm3 (0.9-3.2); Lymphocytes Percent Auto 31.8 % (18.3-44.2); Mean Corpuscular HGB Conc 33.7 g/dl (32-36); Mean Corpuscular Hemoglobin 30.9 pg (26-34); Mean Corpuscular Volume 91.7 fl (80-100); Mean Platelet Volume 9.1 fl (7.4-10.4); Monocytes Absolute Auto 0.5 K/mm3 (0.1-0.6); Monocytes Percent Auto 8.6 % (2.6-8.5); Neutrophils Absolute Auto 2.7 K/mm3 (1.3-6.7); Neutrophils Percent Auto 46.6 % (45.5-73.1); Platelet Count Result 242 k/mm3 (150-375); Red Blood Count 2.78 M/mm3 (4.6-6.20); Red Cell Distribution Width 28.9 % (11.5-14.5); White Blood Count 5.7 K/mm3 (4.5-10.0)
[2023-03-30 09:21] LABS: Alanine Aminotransferase 11 U/L (6-50); Albumin Level 3.7 g/dL (3.5-5.1); Alkaline Phosphatase 105 U/L (38-126); Anion Gap 6 mmol/L (8-16); Aspartate Amino Transferase 20 U/L (17-59); Bilirubin,Total 0.5 mg/dL (0.2-1.3); Blood Urea Nitrogen 21 mg/dL (9-20); Calcium 8.4 mg/dL (8.4-10.2); Carbon Dioxide 28 mmol/L (22-30); Chloride 106 mmol/L (98-107); Estimated CRCL calculation 58 ml/min; Estimated Glomerular Filt Rate > 60; Glucose 109 mg/dL (65-110); Potassium 3.9 mmol/L (3.4-5.0); Sodium 140 mmol/L (137-145)
--- NOTE | 2023-03-30 09:31 | PM.DS ---
DS: Admitting Diagnosis Discharge Date 03/30/23 Admitting Diagnosis hyperthyroidism frequent falls change in behavior chronic anemia lower extremity edema hypertension DS: Discharge Diagnosis Discharge Diagnosis (1) Hyperthyroidism: Code(s): E05.90 - Thyrotoxicosis, unspecified without thyrotoxic crisis or storm Status: Acute (2) Frequent falls: Code(s): R29.6 - Repeated falls Status: Acute (3) Change in behavior: Code(s): R46.89 - Other symptoms and signs involving appearance and behavior Status: Acute (4) Chronic anemia: Code(s): D64.9 - Anemia, unspecified Status: Acute (5) Lower extremity edema: Code(s): R60.0 - Localized edema Status: Acute (6) Hypertension: Code(s): I10 - Essential (primary) hypertension Status: Acute DS: Summary Hospital Course Reason for hospitalization: hyperthyroidism frequent falls change in behavior chronic anemia Lower extremity edema hypertension essential hypertension Hospital Course: This is a 73 year old male who presented to the hospital on 03/25/23 for evaluation of a change in his behavior and frequent falls. Behavioral issues include being impulsive, anxious, and acting out. Work up in the hospital include a CXR which shown cardiomegaly, aortic atherosclerosis.? CT of head is negative for any acute intracranial findings, just age related changes. Cervical spine CT negative. Venous doppler was also negative. Echo showing LV systolic function moderately reduced with EF 30-35%, RV systolic function reduced. Labs include Hgb 9.6, Hct 28.4, Chlor 109, total CK 230, proBNP 4660, TSH < 0.015, Free T4 3.19, thyroid stim immunoglobulin 387, free T3 is pending, folate 6.4, vitamin B12 271 TSH receptor Ab 11.43. UA shown 1+ protein, trace ketones, 1+ leukocytes, 11-20 urine RBC, 21-50 urine WBC. UDS was positive for opiates. Urine culture showing Heena glabrata. Labs today are unremarkable. VSS, he is afebrile, currently on room air. He was also placed on methimazole 5 mg daily. He will need to follow up with an Carbonator, information provided to the patient. He is stable for discharge at this time. Status at Discharge Cognitive/behavioral status at discharge: alert and oriented x3 Functional status at discharge: uses cane/walker Overall status at discharge: patient is progressing back to baseline Time Spent with Patient Time attestation: Total time spent providing and/or coordinating discharge services: Time spent: Greater than 30 minutes Exam Narrative: General: In no acute distress, well nourished Head: atraumatic, no encephalopathy Eyes: EOMI, PERRLA, sclera clear ENT: moist mucous membranes, nasal passages clear Neck: supple, no JVD, no adenopathy, trachea midline Cardiac: Normal S1 and S2. No murmur, gallops or friction rubs, peripheral pulses intact. Respiratory: Lungs clear to auscultation, no adventitious lung sounds Gastrointestinal: soft, non-distended, non-tender, normoactive bowel sounds. : voiding without difficulty. Extremities: moves all extremities well, no edema, good ROM, strength 5/5 Skin: clean, dry, intact. No wounds or lesions. Neuro: Alert and oriented x4, cranial nerves intact, no neuro deficits. Psych: normal mood, normal affect, interactive DS: Data Data Completed and Pending Completed studies during hospitalization: Chest x-ray head CT Cervical spine CT Venous doppler study Pending studies at discharge: none Labs on day of discharge: Labs from last 24 hours 03/30/23 08:59 WBC Pending RBC Pending Hgb Pending Hct Pending MCV Pending MCH Pending MCHC Pending RDW Pending Plt Count Pending MPV Pending Immature Gran % (Auto) Pending Neut % (Auto) Pending Lymph % (Auto) Pending Dillon % (Auto) Pending Eos % (Auto) Pending Baso % (Auto) Pending Lymph # (Auto) Pending Dillon # (Auto) Pending Eos # (Auto) Pending Baso # (Auto) Pending A
[2023-03-30 12:41] LABS: SARS-CoV-2 RNA PCR Negative (Negative)
== END 2023-03-30 13:10 | DRG 644 ==
LOC: ANHED 05:27 → ANH3MEDSUR 09:03
PROVIDERS: Internal Medicine; Physician Assistant; Admitting Provider Internal Medicine; Emergency Provider Student in an Organized Health Care Education/Training Program; PCP Family Medicine; Visit Provider Nurse Practitioner Acute Care
DX: E05.90 Thyrotoxicosis, unspecified without thyrotoxic crisis or storm (principal); B37.49 Other urogenital candidiasis; Z20.822 Contact with and (suspected) exposure to COVID-19; D64.9 Anemia, unspecified; I25.10 Atherosclerotic heart disease of native coronary artery without angina pectoris; R45.87 Impulsiveness; F41.9 Anxiety disorder, unspecified; R29.6 Repeated falls; E11.42 Type 2 diabetes mellitus with diabetic polyneuropathy; K21.9 Gastro-esophageal reflux disease without esophagitis; I10 Essential (primary) hypertension; F03.90 Unspecified dementia, unspecified severity, without behavioral disturbance, psychotic disturbance, mood disturbance, and anxiety; E78.5 Hyperlipidemia, unspecified; I73.9 Peripheral vascular disease, unspecified; E66.01 Morbid (severe) obesity due to excess calories; Z68.32 Body mass index [BMI] 32.0-32.9, adult; Z86.718 Personal history of other venous thrombosis and embolism; Z79.82 Long term (current) use of aspirin; Z86.711 Personal history of pulmonary embolism; Z86.73 Personal history of transient ischemic attack (TIA), and cerebral infarction without residual deficits; Z90.49 Acquired absence of other specified parts of digestive tract; Z95.5 Presence of coronary angioplasty implant and graft; R00.0 Tachycardia, unspecified
CPT/HCPCS: 36415; 70450; 71045; 72125; 80048; 80053; 80307; 81001; 82550; 82607; 82728; 82746; 83519; 83540; 83550; 83735; 83880; 84439; 84443; 84445; 84480; 84484; 85025; 85027; 85610; 85730; 87086; 87088; 87106; 87635; 93005; 93970; 96374; 96375; 96376; 97161; 97165; 97530; 97535; 99285; A9270; C8929; G0378; J1940; Q9957

== ENCOUNTER 2023-04-07 01:31 | Emergency (ER) | payer OTHER, MEDICAID, SELFPAY ==
--- NOTE | ~2023-04-07 | CT_ITS ---
EXAMINATION: CT abdomen pelvis w con INDICATION: Abdominal pain TECHNIQUE: Computed tomographic images of the abdomen and pelvis were obtained after the administrati on of 100 cc of Omnipaque 350 intravenous contrast. The dose-length product (DLP) was 1182.83 mGy-cm. Automated exposure control and iterative reconstruction technique were employed. COMPARISON: 07/05/2022 FINDINGS: There are small pleural effusions, right greater than left. There are minimal dependent air space opacities of the lung bases. Changes of cholecystectomy are noted. Punctate calcifications in a n otherwise normal spleen likely represent healed granulomatous disease. The liver, pancreas, and adr enal glands are normal. There is mild cortical thinning of the kidneys. No pathologically enlarged ab dominal or pelvic lymph nodes are identified. There is calcified atherosclerosis of the aorta and man y of the other arteries. No free intraperitoneal gas or evidence of bowel obstruction. There is mild wall thickening of the rectum with edematous stranding of the perirectal fat. There are small inguina l hernias containing fat. There is severe lumbar spondylosis. IMPRESSION: 1. Mild wall thickening of the rectum with edematous stranding of the perirectal fat, suggestive of p roctitis. 2. Small pleural effusions with mild associated dependent atelectasis of the lung bases. Reviewed, dictated and finalized at location F. INSPECTOR IMPRESSION: 1. Mild wall thickening of the rectum with edematous stranding of the perirecta l fat, suggestive of proctitis. 2. Small pleural effusions with mild associated dependent atelectasis of the finn ng bases.
[2023-04-07 01:30] VITALS: BP 147/87; PULSE 87; RESP 17; TEMP 36.6; O2SAT 97
[2023-04-07 02:01] LABS: Alanine Aminotransferase 12 U/L (6-50); Albumin Level 3.6 g/dL (3.5-5.1); Alkaline Phosphatase 111 U/L (38-126); Anion Gap 10 mmol/L (8-16); Aspartate Amino Transferase 22 U/L (17-59); Bilirubin,Total 0.3 mg/dL (0.2-1.3); Blood Urea Nitrogen 16 mg/dL (9-20); Calcium 8.4 mg/dL (8.4-10.2); Carbon Dioxide 23 mmol/L (22-30); Chloride 106 mmol/L (98-107); Estimated CRCL calculation 59 ml/min; Estimated Glomerular Filt Rate > 60; Glucose 94 mg/dL (65-110); Lipase 123 U/L (23-300); Sodium 139 mmol/L (137-145)
[2023-04-07] MEDS: SODIUM CHLORIDE 0.9% IV 1,000 ML 999 ML IV CONT (02:26)
[2023-04-07 02:30] LABS: Appearance Urine Clear (Clear); Bacteria Urine None Seen /hpf; Bilirubin Urine Negative (Negative); Blood Urine 1+ (Negative); Color Urine Yellow (Yellow); Glucose Urine UA Negative (Negative); Ketones Urine Negative (Negative); Leukocyte Esterase Ur Negative LEU/UL (Negative); Nitrate Urine Negative (Negative); Non Pathogenic Casts 0-2; Protein Urine Negative (Negative); RBC Urine 0-2 /hpf (0-2); Specific Grav Ur 1.014 (1.001-1.035); Squamous Epithelial Cell Urine None seen /hpf (Few); Urobilinogen Urine 0.2 mg/dL (<2.0); WBC Urine 0-5 /hpf
[2023-04-07 02:44] LABS: Add Urine Microscopic? YES
[2023-04-07 02:48] LABS: Basophils Percent Auto 0.1 % (0.2-1.2); Eosinophils Absolute Auto 0.5 K/mm3 (0-0.3); Eosinophils Percent Auto 7.6 % (0-4.4); Hematocrit 26.8 % (42.0-52.0); Hemoglobin 8.9 g/dL (14.0-18.0); Immature Granulocyte Absolute 0.02 K/mm3 (0.00-0.031); Immature Granulocyte Percent A 0.3 % (0-0.5); Lymphocytes Absolute Auto 2.43 K/mm3 (0.9-3.2); Lymphocytes Percent Auto 35.6 % (18.3-44.2); Mean Corpuscular HGB Conc 33.2 g/dl (32-36); Mean Corpuscular Hemoglobin 29.6 pg (26-34); Mean Platelet Volume 9.6 fl (7.4-10.4); Monocytes Absolute Auto 0.7 K/mm3 (0.1-0.6); Monocytes Percent Auto 10.3 % (2.6-8.5); Neutrophils Absolute Auto 3.1 K/mm3 (1.3-6.7); Neutrophils Percent Auto 46.1 % (45.5-73.1); Platelet Count Result 261 k/mm3 (150-375); Red Blood Count 3.01 M/mm3 (4.6-6.20); Red Cell Distribution Width 27.1 % (11.5-14.5); White Blood Count 6.8 K/mm3 (4.5-10.0)
[2023-04-07 03:17] VITALS: BP 139/63; PULSE 94; RESP 17; O2SAT 99
[2023-04-07 03:22] LABS: Platelet Estimate Adequate (Adequate)
[2023-04-07 03:23] LABS: Anisocytosis 1+ (NORMAL); Ovalocytes 1+ (NORMAL)
[2023-04-07 03:24] LABS: Schistocytes Rare (NORMAL)
--- NOTE | 2023-04-07 04:02 | ED.GENADULT ---
HPI - General Adult General Chief complaint: Abdominal Pain Stated complaint: abd pain, SBO? Time Seen by Provider: 04/07/23 01:42 History of Present Illness HPI narrative: Patient is a 73-year-old gentleman who presents emergency department with chief complaint of abdominal pain. Patient reports that he has not had a bowel movement in 4-5 days a given oral laxatives at the facility and declined enema patient reports that he is no longer passing gas he feels as though his abdomen is distended. Related Data Home Medications Medication Instructions Recorded Confirmed acetaminophen 325 mg chewable 650 mg PO Q6H PRN Pain (Scale 12/11/21 03/25/23 tablet Score 1-3) aspirin 81 mg chewable tablet 81 mg PO DAILY 12/11/21 03/25/23 atorvastatin 80 mg tablet 80 mg PO HS 12/11/21 03/25/23 polyethylene glycol 3350 17 17 g PO TID PRN Constipation 12/11/21 03/25/23 gram/dose oral powder venlafaxine 75 mg tablet 75 mg PO BID 12/11/21 03/25/23 esomeprazole magnesium 40 mg 40 mg PO BID 04/29/22 03/25/23 capsule,delayed release lidocaine 5 % topical patch 1 patch topical DAILY 04/29/22 03/25/23 polyvinyl alcohol-povidone (PF) 1 drp EACH EYE TID 04/29/22 03/25/23 1.4 %-0.6 % eye drops in a dropperette (Refresh Classic (PF)) sodium chloride 0.65 % nasal spray 2 spray intranasal QID PRN Nasal 04/29/22 03/25/23 aerosol ([place] Nasal) Congestion bupropion HCl 75 mg tablet 75 mg PO DAILY 04/30/22 03/25/23 hydrochlorothiazide 12.5 mg tablet 12.5 mg PO DAILY 03/25/23 03/25/23 hydrocodone 5 mg-acetaminophen 325 1 tablet PO Q6H PRN Pain (Scale 03/25/23 03/25/23 mg tablet Score 7-10) olanzapine 2.5 mg tablet 2.5 mg PO HS 03/25/23 03/25/23 potassium chloride 20 mEq 20 meq PO DAILY 03/25/23 03/25/23 tablet,extended release(part/cryst) sucralfate 1 gram tablet 1 g PO ACHS 03/25/23 03/25/23 Allergies Allergy/AdvReac Type Severity Reaction Status Date / Time haloperidol [From Haldol] Allergy Unknown Verified 04/07/23 01:39 Penicillins Allergy Unknown Verified 04/07/23 01:39 Review of Systems Review of Systems: A 10 system review of systems was completed on the patient and is negative except for what is stated in the HPI. Nursing and ancillary documentation was reviewed. [facility] Past Medical History Medical History Chronic anemia Coronary artery disease [place]? in 07/2021. 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 Pericardial effusion. Deep venous thrombosis Dementia Depression Diabetic neuropathy Essential hypertension Gastroesophageal reflux disease History of GI bleed Morbid obesity due to excess calories Pericardial effusion Peripheral arterial disease Pulmonary embolism Transient ischemic attack Type 2 diabetes mellitus Diet controlled. Surgical History Surgical History History of ankle surgery History of cardiac catheterization History of gastrostomy tube placement History of laparoscopic cholecystectomy (02/01/22) History of percutaneous coronary intervention Family History Family History Father Family history of malignant neoplasm Mother Family history of heart disease in male family member before age 55 Hypertension Family history of cardiovascular disease Social History Social History Social History: Surrogate medical decision maker: Rachna Almaraz, spouse. Code status: Full code. Smoking status: Never smoker Second hand tobacco smoke exposure: Yes Alcohol intake: unknown Substance use: unknown Substance use type: does not use Lack of Transportation: No Lack of Food: Never True Current Housing: I Have Housing Concerned About Future Housing: No Difficulty Paying Gas/Electric Bills: No Difficulty Paying for Meds: No C
--- NOTE | 2023-04-07 05:26 | PC.NURSE ---
Pt was able to have large BM w bedside commode. This RN assisted pt to commode and back into bed. Pt IV removed and dc papers placed into envelope for EMS [facility].
[2023-04-07 05:47] VITALS: BP 134/61; PULSE 90; RESP 16; O2SAT 98
== END 2023-04-07 05:50 ==
PROVIDERS: Emergency Provider Emergency Medicine; PCP Family Medicine
DX: R10.84 Generalized abdominal pain (principal); I25.10 Atherosclerotic heart disease of native coronary artery without angina pectoris; F03.90 Unspecified dementia, unspecified severity, without behavioral disturbance, psychotic disturbance, mood disturbance, and anxiety; D64.9 Anemia, unspecified; E11.40 Type 2 diabetes mellitus with diabetic neuropathy, unspecified; E11.51 Type 2 diabetes mellitus with diabetic peripheral angiopathy without gangrene; I10 Essential (primary) hypertension; K21.9 Gastro-esophageal reflux disease without esophagitis; F32.A Depression, unspecified; Z86.73 Personal history of transient ischemic attack (TIA), and cerebral infarction without residual deficits; Z86.718 Personal history of other venous thrombosis and embolism; Z95.5 Presence of coronary angioplasty implant and graft; Z79.82 Long term (current) use of aspirin; Z79.891 Long term (current) use of opiate analgesic
CPT/HCPCS: 36415; 74177; 80053; 81001; 83690; 85025; 99284; J7030; Q9967

== ENCOUNTER 2023-04-26 21:03 | Inpatient (IN) | payer OTHER, MEDICAID, SELFPAY ==
[2023-04-26] VITALS (13 sets, daily range): BP systolic 120–138; BP diastolic 68–79; PULSE 95–108; RESP 12–24; TEMP 36.7; O2SAT 98–100
--- NOTE | ~2023-04-26 | XR_ITS ---
EXAMINATION: XR chest 1V portable DATE: 04/26/2023 21:32 INDICATION: Chest pain. TECHNIQUE: A single frontal view of the chest was obtained. COMPARISON: Chest view 03/25/2023, CT abdomen and pelvis 1 10/22 FINDINGS: A calcified left lung nodule and calcified left hilar lymph nodes are consistent with old g ranulomatous disease. No pleural effusion or pneumothorax. The heart size is normal. IMPRESSION: 1. No acute cardiopulmonary disease. Reviewed, dictated and finalized at location E. ATIENT CASE MANAGER
[2023-04-26 21:36] LABS: INR 1.2; Prothrombin Time 16.2 Seconds (11.1-14.7)
[2023-04-26 21:37] LABS: Partial Thromboplastin Time 30.2 SECONDS (22.3-36.8)
[2023-04-26] MEDS: PANTOPRAZOLE SODIUM IV 40 MG VIAL IV PUSH (21:43)
[2023-04-26] MEDS: BELLADONNA ALK/PHENOB ELIX 10 ML, MAG HYDROX/ALUMINUM HYD/SIMETH 30 ML, LIDOCAINE HCL 2... PO (21:43)
[2023-04-26 21:47] LABS: Alanine Aminotransferase 13 U/L (6-50); Albumin Level 3.6 g/dL (3.5-5.1); Alkaline Phosphatase 123 U/L (38-126); Anion Gap 7 mmol/L (8-16); Aspartate Amino Transferase 22 U/L (17-59); Bilirubin,Total 0.4 mg/dL (0.2-1.3); Blood Urea Nitrogen 21 mg/dL (9-20); Calcium 8.3 mg/dL (8.4-10.2); Carbon Dioxide 23 mmol/L (22-30); Chloride 112 mmol/L (98-107); Estimated CRCL calculation 60 ml/min; Estimated Glomerular Filt Rate > 60; Glucose 109 mg/dL (65-110); Lipase 76 U/L (23-300); Potassium 3.4 mmol/L (3.4-5.0); Sodium 142 mmol/L (137-145)
[2023-04-26 21:58] LABS: Troponin I < 0.012 ng/mL (0.000-0.034)
[2023-04-26 22:19] LABS: Basophils Percent Auto 0.5 % (0.2-1.2); Eosinophils Absolute Auto 0.2 K/mm3 (0-0.3); Eosinophils Percent Auto 2.7 % (0-4.4); Hematocrit 23.8 % (42.0-52.0); Immature Granulocyte Absolute 0.03 K/mm3 (0.00-0.031); Immature Granulocyte Percent A 0.5 % (0-0.5); Lymphocytes Absolute Auto 1.84 K/mm3 (0.9-3.2); Lymphocytes Percent Auto 33.5 % (18.3-44.2); Mean Corpuscular HGB Conc 33.6 g/dl (32-36); Mean Corpuscular Hemoglobin 30.4 pg (26-34); Mean Corpuscular Volume 90.5 fl (80-100); Mean Platelet Volume 9.7 fl (7.4-10.4); Monocytes Absolute Auto 0.5 K/mm3 (0.1-0.6); Monocytes Percent Auto 9.6 % (2.6-8.5); Neutrophils Absolute Auto 2.9 K/mm3 (1.3-6.7); Neutrophils Percent Auto 53.2 % (45.5-73.1); Platelet Count Result 211 k/mm3 (150-375); Red Blood Count 2.63 M/mm3 (4.6-6.20); Red Cell Distribution Width 29.6 % (11.5-14.5); White Blood Count 5.5 K/mm3 (4.5-10.0)
[2023-04-26 22:21] LABS: Platelet Estimate Adequate (Adequate); Schistocytes None Seen (NORMAL)
[2023-04-26 22:22] LABS: Anisocytosis 3+ (NORMAL); Hypochromasia 1+ (NORMAL)
--- NOTE | 2023-04-26 23:47 | ECG_ITS ---
Measurements Intervals [place] Rate: 100 P: 39 NM: 163 QRS: 17 QRSD: 98 T: -35 QT: 357 QTc: 461 Interpretive Statements SINUS TACHYCARDIA LOW QRS VOLTAGE IN PRECORDIAL LEADS CONSIDER ANTERIOR INFARCT, AGE INDETERMINATE INFERIOR INFARCT, AGE INDETERMINATE BASELINE ARTIFACT- V2-V4 ABNORMAL ECG COMPARED TO ECG 03/30/2023 02:12:11 SINUS TACHYCARDIA NOW PRESENT Electronically Signed On 04-27-2023 6:33:34 WILD ANIMAL CARETAKER by Andrea Yanes D.O.
--- NOTE | 2023-04-26 23:53 | ECG_ITS ---
Measurements Intervals [place] Rate: 108 P: 63 OR: 174 QRS: 25 QRSD: 100 T: -30 QT: 328 QTc: 441 Interpretive Statements SINUS TACHYCARDIA INFERIOR INFARCT, AGE INDETERMINATE CONSIDER ANTEROLATERAL INFARCT, AGE INDETERMINATE BORDERLINE ST-T WAVE ABNORMALITY- HIGH LATERAL LEADS ABNORMAL ECG COMPARED TO ECG 04/26/2023 21:12:07 NO SIGNIFICANT CHANGES Electronically Signed On 04-28-2023 7:53:04 MAINTENANCE SUPERINTENDENT by Andrea Yanes D.O.
--- NOTE | 2023-04-26 23:59 | ED.GENADULT ---
HPI - General Adult General Chief complaint: Chest Pain Stated complaint: chest pain Time Seen by Provider: 04/26/23 21:29 History of Present Illness HPI narrative: the patient's O2 3-year-old gentleman who presents emergency department with chief complaint of chest pain. Patient reports that today he started having some discomfort in his mid chest/ epigastric region the patient states the pain is a burning like sensation does report that many years ago he had a non ST elevation NV and also reports that he has history of anxiety. The patient states that he was given nitroglycerin and aspirin prior to arrival that really did not help the pain the patient states that it feels like a burning sensation like he has indigestion. Related Data Home Medications Medication Instructions Recorded Confirmed acetaminophen 325 mg chewable 650 mg PO Q6H PRN Pain (Scale 12/11/21 03/25/23 tablet Score 1-3) aspirin 81 mg chewable tablet 81 mg PO DAILY 12/11/21 03/25/23 atorvastatin 80 mg tablet 80 mg PO HS 12/11/21 03/25/23 polyethylene glycol 3350 17 17 g PO TID PRN Constipation 12/11/21 03/25/23 gram/dose oral powder venlafaxine 75 mg tablet 75 mg PO BID 12/11/21 03/25/23 esomeprazole magnesium 40 mg 40 mg PO BID 04/29/22 03/25/23 capsule,delayed release lidocaine 5 % topical patch 1 patch topical DAILY 04/29/22 03/25/23 polyvinyl alcohol-povidone (PF) 1 drp EACH EYE TID 04/29/22 03/25/23 1.4 %-0.6 % eye drops in a dropperette (Refresh Classic (PF)) sodium chloride 0.65 % nasal spray 2 spray intranasal QID PRN Nasal 04/29/22 03/25/23 aerosol ([place] Nasal) Congestion bupropion HCl 75 mg tablet 75 mg PO DAILY 04/30/22 03/25/23 hydrochlorothiazide 12.5 mg tablet 12.5 mg PO DAILY 03/25/23 03/25/23 hydrocodone 5 mg-acetaminophen 325 1 tablet PO Q6H PRN Pain (Scale 03/25/23 03/25/23 mg tablet Score 7-10) olanzapine 2.5 mg tablet 2.5 mg PO HS 03/25/23 03/25/23 potassium chloride 20 mEq 20 meq PO DAILY 03/25/23 03/25/23 tablet,extended release(part/cryst) sucralfate 1 gram tablet 1 g PO ACHS 03/25/23 03/25/23 Allergies Allergy/AdvReac Type Severity Reaction Status Date / Time haloperidol [From Haldol] Allergy Unknown Verified 04/07/23 01:39 Penicillins Allergy Unknown Verified 04/07/23 01:39 Review of Systems Review of Systems: A 10 system review of systems was completed on the patient and is negative except for what is stated in the HPI. Nursing and ancillary documentation was reviewed. [facility] Past Medical History Medical History Chronic anemia Coronary artery disease [place]? in 07/2021. 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 Pericardial effusion. Deep venous thrombosis Dementia Depression Diabetic neuropathy Essential hypertension Gastroesophageal reflux disease History of GI bleed Morbid obesity due to excess calories Pericardial effusion Peripheral arterial disease Pulmonary embolism Transient ischemic attack Type 2 diabetes mellitus Diet controlled. Surgical History Surgical History History of ankle surgery History of cardiac catheterization History of gastrostomy tube placement History of laparoscopic cholecystectomy (02/01/22) History of percutaneous coronary intervention Family History Family History Father Family history of malignant neoplasm Mother Family history of heart disease in male family member before age 55 Hypertension Family history of cardiovascular disease Social History Social History Social History: Surrogate medical decision maker: Rachnaanderson Almaraz, spouse. Code status: Full code. Smoking status: Never smoker Second hand tobacco smoke exposure: Yes Alcohol intake: unknown Substance use: unknown Substa
[2023-04-27] VITALS (27 sets, daily range): BP systolic 109–140; BP diastolic 57–84; PULSE 71–106; RESP 12–19; TEMP 36.4–36.9; O2SAT 94–100; BMI 32.7
[2023-04-27 01:05] LABS: Troponin I 0.092 ng/mL (0.000-0.034)
--- NOTE | 2023-04-27 01:37 | PM.IMHP ---
H&P: HPI History of Present Illness Date/Time: 04/27/23 01:37 Chief Complaint: Chest pain Narrative: Patient is a 73-year-old male with history of coronary artery disease status post 4 stent placement done 3 years ago, hypertension, gastroesophageal reflux disease who presented to the ED with midsternal chest pain that started last night around 10:00 p.m., described pain as severe, radiated to the left breast and his back, pain was not relieved by aspirin and nitro sublingual, however this was relieved by GI cocktail, no nausea vomiting, no diaphoresis no shortness of breath, he does not see any electric motor assembler and tester since stent was placed and he is not sure if he is taking the right medication regimen. Evaluation in the ED showed EKG with Q-wave on lead 3 and AVF, normal initial troponin and repeat that is about 7.6 times elevated. Patient was started on heparin drip, Cardiology consult placed and consult for admission also made. He denied any chest pain during my encounter with this patient Review of Systems Review of Systems: All systems reviewed & are unremarkable except as noted in HPI and below PMFSH Past Medical History Medical History Chronic anemia Coronary artery disease [place]? in 07/2021. 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 Pericardial effusion. Deep venous thrombosis Dementia Depression Diabetic neuropathy Essential hypertension Gastroesophageal reflux disease History of GI bleed Morbid obesity due to excess calories Pericardial effusion Peripheral arterial disease Pulmonary embolism Transient ischemic attack Type 2 diabetes mellitus Diet controlled. Surgical History Surgical History History of ankle surgery History of cardiac catheterization History of gastrostomy tube placement History of laparoscopic cholecystectomy (02/01/22) History of percutaneous coronary intervention Family History Family History Father Family history of malignant neoplasm Mother Family history of heart disease in male family member before age 55 Hypertension Family history of cardiovascular disease Social History Social History Social History: Surrogate medical decision maker: Rachna Almaraz, spouse. Code status: Full code. Smoking status: Never smoker Second hand tobacco smoke exposure: Yes Alcohol intake: unknown Substance use: unknown Substance use type: does not use Lack of Transportation: No Lack of Food: Never True Current Housing: I Have Housing Concerned About Future Housing: No Difficulty Paying Gas/Electric Bills: No Difficulty Paying for Meds: No Currently Unemployed: No Education: High School Diploma/GED Difficulty w/ Childcare or Family Care: No Additional living arrangements comments: Resident at [facility]. Spiritual care concerns: No Meds Home Medications and Allergies Home Medications Medication Instructions Recorded Confirmed Type acetaminophen 325 mg chewable 650 mg PO Q6H PRN Pain (Scale 12/11/21 03/25/23 History tablet Score 1-3) aspirin 81 mg chewable tablet 81 mg PO DAILY 12/11/21 03/25/23 History atorvastatin 80 mg tablet 80 mg PO HS 12/11/21 03/25/23 History polyethylene glycol 3350 17 17 g PO TID PRN Constipation 12/11/21 03/25/23 History gram/dose oral powder venlafaxine 75 mg tablet 75 mg PO BID 12/11/21 03/25/23 History tamsulosin 0.4 mg capsule 0.4 mg PO HS #30 caps 01/07/22 03/25/23 Rx esomeprazole magnesium 40 mg 40 mg PO BID 04/29/22 03/25/23 History capsule,delayed release lidocaine 5 % topical patch 1 patch topical DAILY 04/29/22 03/25/23 History polyvinyl alcohol-povidone (PF) 1 drp EACH EYE TID 04/29/22 03/25/23 History 1.4 %-0.6 % eye drops in a dropperette (Ref
[2023-04-27] MEDS: HEPARIN SODIUM 5,000 UNITS/ML VIAL 4000 UNITS IV PUSH (01:50)
[2023-04-27] MEDS: HEPARIN SOD/D5W 100 UNITS/ML 25,000 UNITS/250 ML BAG 10 UNITS IV CONT (01:50)
--- NOTE | 2023-04-27 02:51 | ECG_ITS ---
Measurements Intervals [place] Rate: 89 P: 31 [place]: 174 QRS: 13 QRSD: 98 T: -30 QT: 386 QTc: 470 Interpretive Statements SINUS RHYTHM INFERIOR INFARCT, AGE INDETERMINATE CONSIDER ANTEROLATERAL INFARCT, AGE INDETERMINATE ABNORMAL ECG COMPARED TO ECG 04/26/2023 23:53:38 SINUS RHYTHM NOW PRESENT Electronically Signed On 04-27-2023 6:50:32 OPERATIONAL TEST MECHANIC by Andrea Yanes D.O.
[2023-04-27] MEDS: MORPHINE SULFATE (*CRX) 2 MG/ML INJ IV PUSH (02:52)
--- NOTE | 2023-04-27 03:40 | PC.NURSE ---
This patient, Juan Pablo Almaraz, was admitted to IMU Room 202-. Patient/family oriented to hospital policies and general routines including ID bracelet, bed and alarms, visiting hours, pain management, procedures, bathroom and other care routines, personal items, smoking policy, room service/diet, and visiting hours. Information on how to activate the Rapid Response Team has been discussed. Patient/Family are encouraged to report perceived risks to care and to ask questions if they do not understand what they are told or what they should do.
[2023-04-27 04:16] LABS: Anion Gap 10 mmol/L (8-16); Blood Urea Nitrogen 20 mg/dL (9-20); Calcium 8.4 mg/dL (8.4-10.2); Carbon Dioxide 21 mmol/L (22-30); Chloride 111 mmol/L (98-107); Estimated CRCL calculation 64 ml/min; Estimated Glomerular Filt Rate > 60; Glucose 110 mg/dL (65-110); Potassium 3.9 mmol/L (3.4-5.0); Sodium 142 mmol/L (137-145)
[2023-04-27 05:20] LABS: Basophils Percent Auto 0.3 % (0.2-1.2); Eosinophils Absolute Auto 0.1 K/mm3 (0-0.3); Eosinophils Percent Auto 2.4 % (0-4.4); Hematocrit 25.1 % (42.0-52.0); Hemoglobin 8.1 g/dL (14.0-18.0); Immature Granulocyte Absolute 0.01 K/mm3 (0.00-0.031); Immature Granulocyte Percent A 0.2 % (0-0.5); Lymphocytes Absolute Auto 1.97 K/mm3 (0.9-3.2); Lymphocytes Percent Auto 33.7 % (18.3-44.2); Mean Corpuscular HGB Conc 32.3 g/dl (32-36); Mean Corpuscular Hemoglobin 28.2 pg (26-34); Mean Corpuscular Volume 87.5 fl (80-100); Mean Platelet Volume 9.7 fl (7.4-10.4); Monocytes Absolute Auto 0.7 K/mm3 (0.1-0.6); Monocytes Percent Auto 12.7 % (2.6-8.5); Neutrophils Percent Auto 50.7 % (45.5-73.1); Platelet Count Result 196 k/mm3 (150-375); Red Blood Count 2.87 M/mm3 (4.6-6.20); Red Cell Distribution Width 27.9 % (11.5-14.5); White Blood Count 5.8 K/mm3 (4.5-10.0)
[2023-04-27 05:23] LABS: Hypochromasia 1+ (NORMAL); Platelet Estimate Adequate (Adequate)
[2023-04-27 05:24] LABS: Anisocytosis 1+ (NORMAL); Schistocytes None Seen (NORMAL)
[2023-04-27] MEDS: SUCRALFATE 1 GM TABLET PO ×4 (06:48→20:10)
[2023-04-27] MEDS: HYDROcodone/acetaminophen (*CRX) 5-325 MG TABLET 1 TAB PO ×2 (06:51→20:09)
[2023-04-27 09:04] LABS: Partial Thromboplastin Time 83.6 SECONDS (22.3-36.8)
[2023-04-27] MEDS: ASPIRIN 81 MG CHEWABLE TABLET PO (09:57)
[2023-04-27] MEDS: OLANZapine 2.5 MG TABLET PO ×2 (09:57→20:00)
[2023-04-27] MEDS: PANTOPRAZOLE 40 MG TABLET PO (09:57)
[2023-04-27] MEDS: FINASTERIDE 5 MG TABLET PO (09:57)
[2023-04-27] MEDS: hydroCHLOROthiazide 12.5 MG CAPSULE PO (09:57)
[2023-04-27] MEDS: methiMAzole 5 MG TAB PO (09:58)
[2023-04-27] MEDS: VENLAFAXINE HCL 75 MG TABLET PO ×2 (09:58→17:27)
[2023-04-27] MEDS: buPROPion HCL 75 MG TABLET PO ×2 (09:59→20:00)
[2023-04-27] MEDS: ARTIFICIAL TEARS OPHTH SOLN 15 ML BOTTLE 1 DROP EACH EYE ×3 (09:59→17:27)
--- NOTE | 2023-04-27 16:16 | PM.CNCAR ---
Assessment and Plan Assessment and plan (1) NSTEMI (non-ST elevated myocardial infarction): Code(s): I21.4 - Non-ST elevation (NSTEMI) myocardial infarction Status: Acute Assessment and Plan: Patient presents with atypical symptoms occurring at rest after having a bowel movement yet with significant troponin elevation, abnormal ECG and a known history of obstructive CAD with complex intervention to RCA 07/2021. Patient states he has done well subsequently but has not followed up routinely. He is currently pain-free. He remains on heparin infusion along with aspirin 81 mg daily. Continue atorvastatin 80 mg at bedtime. Risks, benefits, and alternatives discussed with the patient including but not limited to bleeding, stroke, myocardial infarction, , renal insufficiency. Patient verbalized understanding wishes to proceed with coronary angiography. Patient remains asymptomatic. Sublingual nitroglycerin for recurrent chest pain. If patient has symptoms recur and are refractory proceed urgently to coronary angiography. Patient agrees. Continue telemetry. Patient elevated risk for complications. Strongly encouraged compliance with medications, follow-up moving forward. He verbalized understanding and agrees. All questions answered to his satisfaction. Patient will be NPO after midnight Saturday night in anticipation for coronary angiography Saturday. 2D echocardiogram to assess LV function, wall motion, valve pathology pulmonary pressures. Patient had ischemic changes on ECG. Repeat 12 ECG in a.m.. (2) Coronary artery disease: Qualifiers: Coronary Disease-Associated Artery/Lesion type: osage artery [place] vs. transplanted heart: osage heart Associated angina: without angina Qualified Code(s): I25.10 - Atherosclerotic heart disease of [place]age coronary artery without angina pectoris Code(s): I25.10 - Atherosclerotic heart disease of os[place] coronary artery without angina pectoris Status: Chronic Assessment and Plan: As above, history of multiple previously placed stents. Continue aggressive medical management clubbing aspirin 81 mg daily, atorvastatin 80 mg daily. (3) Anemia: Code(s): D64.9 - Anemia, unspecified Status: Acute Assessment and Plan: Patient has significant anemia H&H fairly stable. No evidence for active bleeding. Follow H&H daily. Need to monitor tolerance with antiplatelet therapy and anticoagulation prior to coronary angiography. Discussed at length. Patient understands. (4) Essential hypertension: Code(s): I10 - Essential (primary) hypertension Status: Acute Assessment and Plan: Continue hydrochlorothiazide 12.5 mg daily, add metoprolol tartrate 25 mg twice daily. (5) Type 2 diabetes mellitus: Code(s): E11.9 - Type 2 diabetes mellitus without complications Status: Acute Assessment and Plan: Management per primary service. (6) Lower extremity edema: Code(s): R60.0 - Localized edema Status: Acute Assessment and Plan: By exam appears to be chronic. Patient does not appear to be in decompensated heart failure. Continue hydrochlorothiazide 12.5 mg daily. Additional diuresis based on patient's clinical status. History of Present Illness History of Present Illness Consult date/time: Date of service: 04/27/23 16:16 Requesting physician: Karyn Olvera MD Consult reason: chest pain (NSTEMI) Reason For Visit: chest pain, evelated troponin Narrative: Patient is a 73-year-old male with a history of CAD status post multiple stents most recent intervention 08/11/2021 with 3.0 x 8 mm, 3.0 x 12 mm Promus 3.0 x 40 mm drug-eluting stent to RCA with complicated by vessel dissection and pericardial effusion at [facility], history of vascular dementia, history of hypertension, hyperlipidemia, peripheral tear disease, remote history of TIA who presents emergency department with complaints of chest p
[2023-04-27 17:08] LABS: Glucose Point of Care 77 mg/dl (65-105)
[2023-04-27] MEDS: ATORVASTATIN 40 MG TABLET 80 MG PO (19:59)
[2023-04-27] MEDS: GABAPENTIN 100 MG CAPSULE PO (20:00)
[2023-04-27] MEDS: TAMSULOSIN HCL 0.4 MG CAPSULE PO (20:00)
[2023-04-27 20:56] LABS: Glucose Point of Care 101 mg/dl (65-105)
[2023-04-28] VITALS (18 sets, daily range): BP systolic 104–119; BP diastolic 48–66; PULSE 74–95; RESP 12–20; TEMP 36.4–36.8; O2SAT 96–100
[2023-04-28] MEDS: HEPARIN SOD/D5W 100 UNITS/ML 25,000 UNITS/250 ML BAG 10 UNITS IV CONT (02:58)
[2023-04-28] MEDS: HYDROcodone/acetaminophen (*CRX) 5-325 MG TABLET 1 TAB PO ×4 (04:57→21:13)
[2023-04-28 05:06] LABS: Basophils Percent Auto 0.2 % (0.2-1.2); Eosinophils Absolute Auto 0.3 K/mm3 (0-0.3); Eosinophils Percent Auto 6.4 % (0-4.4); Hemoglobin 7.8 g/dL (14.0-18.0); Immature Granulocyte Absolute 0.01 K/mm3 (0.00-0.031); Immature Granulocyte Percent A 0.2 % (0-0.5); Lymphocytes Absolute Auto 2.06 K/mm3 (0.9-3.2); Lymphocytes Percent Auto 42.5 % (18.3-44.2); Mean Corpuscular HGB Conc 37.5 g/dl (32-36); Mean Corpuscular Hemoglobin 36.4 pg (26-34); Mean Corpuscular Volume 97.2 fl (80-100); Mean Platelet Volume 9.6 fl (7.4-10.4); Monocytes Absolute Auto 0.5 K/mm3 (0.1-0.6); Monocytes Percent Auto 10.7 % (2.6-8.5); Neutrophils Absolute Auto 1.9 K/mm3 (1.3-6.7); Platelet Count Result 176 k/mm3 (150-375); Red Blood Count 2.14 M/mm3 (4.6-6.20); White Blood Count 4.9 K/mm3 (4.5-10.0)
[2023-04-28 05:19] LABS: Anion Gap 9 mmol/L (8-16); Blood Urea Nitrogen 21 mg/dL (9-20); Calcium 8.3 mg/dL (8.4-10.2); Carbon Dioxide 21 mmol/L (22-30); Chloride 109 mmol/L (98-107); Estimated CRCL calculation 59 ml/min; Estimated Glomerular Filt Rate > 60; Glucose 102 mg/dL (65-110); Magnesium 2.3 mg/dL (1.6-2.3); Potassium 3.8 mmol/L (3.4-5.0); Sodium 139 mmol/L (137-145)
[2023-04-28 05:52] LABS: Hematocrit 20.8 % (42.0-52.0)
[2023-04-28 05:56] LABS: Anisocytosis 2+ (NORMAL); Hypochromasia 1+ (NORMAL); Platelet Estimate Adequate (Adequate); Poikilocytosis 1+ (NORMAL)
[2023-04-28 05:57] LABS: Schistocytes None Seen (NORMAL)
[2023-04-28] MEDS: HEPARIN SODIUM 5,000 UNITS/ML VIAL 3000 UNITS IV PUSH (06:13)
[2023-04-28] MEDS: SUCRALFATE 1 GM TABLET PO ×4 (06:18→21:14)
[2023-04-28 07:25] LABS: Hematocrit 24.2 % (42.0-52.0); Hemoglobin 8.6 g/dL (14.0-18.0)
--- NOTE | 2023-04-28 09:48 | PC.NURSE ---
Pt states he is not a diabetic and refuses accuchecks and diabetic diet.
[2023-04-28] MEDS: ASPIRIN 81 MG CHEWABLE TABLET PO (10:25)
[2023-04-28] MEDS: buPROPion HCL 75 MG TABLET PO ×2 (10:25→21:13)
[2023-04-28] MEDS: PANTOPRAZOLE 40 MG TABLET PO (10:25)
[2023-04-28] MEDS: OLANZapine 2.5 MG TABLET PO ×2 (10:25→21:13)
[2023-04-28] MEDS: methiMAzole 5 MG TAB PO (10:26)
[2023-04-28] MEDS: FINASTERIDE 5 MG TABLET PO (10:26)
[2023-04-28] MEDS: ARTIFICIAL TEARS OPHTH SOLN 15 ML BOTTLE 1 DROP EACH EYE ×2 (10:26→17:28)
[2023-04-28] MEDS: hydroCHLOROthiazide 12.5 MG CAPSULE PO (10:26)
[2023-04-28] MEDS: VENLAFAXINE HCL 75 MG TABLET PO ×2 (10:26→17:30)
--- NOTE | 2023-04-28 10:30 | PM.IMPN ---
Progress Note: A&P Assessment and Plan (1) Anemia: Code(s): D64.9 - Anemia, unspecified Status: Acute (2) NSTEMI (non-ST elevated myocardial infarction): Code(s): I21.4 - Non-ST elevation (NSTEMI) myocardial infarction Status: Acute (3) Chest pain: Code(s): R07.9 - Chest pain, unspecified Status: Acute (4) Gastroesophageal reflux disease: Code(s): K21.9 - Gastro-esophageal reflux disease without esophagitis Status: Acute (5) Coronary artery disease: Qualifiers: Coronary Disease-Associated Artery/Lesion type: habematolel artery [place] vs. transplanted heart: habematolel heart Associated angina: without angina Qualified Code(s): I25.10 - Atherosclerotic heart disease of habematolel coronary artery without angina pectoris Code(s): I25.10 - Atherosclerotic heart disease of habematolel coronary artery without angina pectoris Status: Chronic (6) Venous stasis dermatitis: Code(s): I87.2 - Venous insufficiency (chronic) (peripheral) Status: Acute Plan 73-year-old pleasant male with a history of CAD status post multiple stents with most recent intervention 08/11/2021 with stent to RCA with complication by vessel dissection and pericardial effusion [place], GERD, chronic anemia hypertension, history of vascular dementia, hyperlipidemia, remote TIA, who presented with chest pain after having bowel movement. Patient reports nitroglycerin did not resolve the chest pain but a GI cocktail did the trick. He was admitted for NSTEMI on 04/27/2023 Troponin peaked at 1.6 and he is chest pain-free now. We appreciate Cardiology recommendations. He is on heparin drip and to be NPO at midnight for planned cardiac catheterization in the morning. Continue to monitor hemoglobin. FEN: Saline lock IV, heart healthy diet, NPO at midnight. GI prophylaxis: On PPI at home, continue Protonix. DVT prophylaxis: On heparin drip Lines: Peripheral IV Code Status: DNR Dispo: Stable Subjective Date/time seen: 04/28/23 10:30 Interval history: No acute overnight events. Refuses a diabetic diet. He is still amenable to cardiac catheterization tomorrow. Currently denies any symptoms including chest pain or shortness of breath. Review of Systems Review of Systems: All systems reviewed & are unremarkable except as noted in HPI and below (Subjective) Exam Const: General: comfortable and no acute distress Other: A&O x3 Eyes: Pupils: Equal, round and reactive pupils present Neck: Neck: supple Resp: Effort & Inspection: normal respiratory effort Auscultation: clear to auscultation bilaterally, no crackles, no rales and no rhonchi Cardio: Rate: regular rate Rhythm: regular rhythm Heart sounds: no gallops, no murmurs and no rubs GI: Inspection: non-distended GI Palp: Yes Soft to palpation and No Tenderness to palpation present (GI) Auscultation: normal bowel sounds Extrem: General: edema (Chronic venous stasis changes/hyper pigmentation, 1+ edema) Objective Data Vital Signs Vital Signs: Vital Signs - 24 hr 04/27/23 11:34 04/27/23 16:22 04/27/23 12:00 Temperature 97.8 F 97.8 F Pulse Rate 84 80 79 Respiratory Rate 16 17 Blood Pressure 136/71 131/67 Pulse Oximetry 98 100 Oxygen Delivery 04/27/23 14:00 04/27/23 16:00 04/27/23 18:00 Temperature Pulse Rate 71 84 88 Respiratory Rate Blood Pressure Pulse Oximetry Oxygen Delivery 04/27/23 12:00 04/27/23 16:00 04/27/23 20:00 Temperature 97.9 F Pulse Rate 86 Respiratory Rate 17 Blood Pressure 109/57 L Pulse Oximetry 99 Oxygen Delivery Room Air Room Air 04/28/23 00:24 04/28/23 00:00 04/27/23 20:00 Temperature 97.6 F Pulse Rate 79 105 H Respiratory Rate 20 Blood Pressure 104/56 L Pulse Oximetry 96 Oxygen Delivery Room Air 04/27/23 22:00 04/28/23 00:00 04/28/23 02:00 Temperature Pulse Rate 79 77 77 Respiratory Rate Blood Pressure Puls
[2023-04-28 12:09] LABS: Glucose Point of Care 89 mg/dl (65-105)
[2023-04-28 12:30] LABS: Partial Thromboplastin Time 77.8 SECONDS (22.3-36.8)
--- NOTE | 2023-04-28 13:45 | PM.PNCARD ---
Progress Note: A&P Assessment and Plan (1) NSTEMI (non-ST elevated myocardial infarction): Code(s): I21.4 - Non-ST elevation (NSTEMI) myocardial infarction Status: Acute Assessment and Plan: Patient presents with atypical symptoms occurring at rest after having a bowel movement yet with significant troponin elevation, abnormal ECG and a known history of obstructive CAD with complex intervention to RCA 07/2021. Patient states he has done well subsequently but has not followed up routinely. He is currently pain-free. He remains on heparin infusion along with aspirin 81 mg daily. Continue atorvastatin 80 mg at bedtime. Risks, benefits, and alternatives discussed with the patient including but not limited to bleeding, stroke, myocardial infarction, , renal insufficiency. Patient verbalized understanding wishes to proceed with coronary angiography. Patient remains asymptomatic. Sublingual nitroglycerin for recurrent chest pain. If patient has symptoms recur and are refractory proceed urgently to coronary angiography. Patient agrees. Continue telemetry. Patient elevated risk for complications. Strongly encouraged compliance with medications, follow-up moving forward. He verbalized understanding and agrees. All questions answered to his satisfaction. Patient will be NPO after midnight Saturday night in anticipation for coronary angiography Saturday. 2D echocardiogram to assess LV function, wall motion, valve pathology pulmonary pressures. Patient had ischemic changes on ECG. Once again discussed risks and benefits once again discussed with regards to coronary angiography. H&H stable on heparin. NPO after midnight tonight with plans for coronary angiography in a.m.. 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 All questions answered to his satisfaction. Patient had transient recurrent anginal chest pain, currently asymptomatic. Nitrates if necessary although BP marginal. (2) Coronary artery disease: Qualifiers: Coronary Disease-Associated Artery/Lesion type: [place] artery [place] vs. transplanted heart: [place] heart Associated angina: without angina Qualified Code(s): I25.10 - Atherosclerotic heart disease of [place] coronary artery without angina pectoris Code(s): I25.10 - Atherosclerotic heart disease of [place] coronary artery without angina pectoris Status: Chronic Assessment and Plan: As above, history of multiple previously placed stents. Continue aggressive medical management including aspirin 81 mg daily, atorvastatin 80 mg daily. NPO after midnight for coronary angiography. (3) Anemia: Code(s): D64.9 - Anemia, unspecified Status: Acute Assessment and Plan: Patient has significant anemia H&H fairly stable. No evidence for active bleeding. Follow H&H daily. It appears patient will tolerate coronary angiography at this point but will continue to monitor in a.m.. Discussed at length. Patient understands. (4) Essential hypertension: Code(s): I10 - Essential (primary) hypertension Status: Acute Assessment and Plan: Continue hydrochlorothiazide 12.5 mg daily, add metoprolol tartrate 12.5 mg twice daily. (5) Type 2 diabetes mellitus: Code(s): E11.9 - Type 2 diabetes mellitus without complications Status: Acute Assessment and Plan: Management per primary service. (6) Lower extremity edema: Code(s): R60.0 - Localized edema Status: Acute Assessment and Plan: By exam appears to be chronic. Patient does not appear to be in decompensated heart failure edema improving. Continue hydrochlorothiazide 12.5 mg daily. Additional diuresis based on patient's clinical status. Subjective Date/time seen: Date of service: 04/28/23 13:46 Interval history: Follow-up for NSTEMI Patient states he is feeling well. States he had an episode of chest discomfort not long after our discussion yesterday but
[2023-04-28 18:31] LABS: Partial Thromboplastin Time 49.9 SECONDS (22.3-36.8)
[2023-04-28] MEDS: HEPARIN SODIUM 5,000 UNITS/ML VIAL 4000 UNITS IV PUSH (18:54)
[2023-04-28] MEDS: METOPROLOL TARTRATE 12.5 MG TABLET PO (21:13)
[2023-04-28] MEDS: TAMSULOSIN HCL 0.4 MG CAPSULE PO (21:13)
[2023-04-28] MEDS: ATORVASTATIN 40 MG TABLET 80 MG PO (21:13)
[2023-04-28] MEDS: GABAPENTIN 100 MG CAPSULE PO (21:15)
[2023-04-29] VITALS (36 sets, daily range): BP systolic 91–134; BP diastolic 50–86; PULSE 70–93; RESP 12–20; TEMP 36.2–36.9; O2SAT 95–100
[2023-04-29 01:45] LABS: Partial Thromboplastin Time 91.2 SECONDS (22.3-36.8)
[2023-04-29 05:24] LABS: Hematocrit 22.3 % (42.0-52.0); Hemoglobin 8.3 g/dL (14.0-18.0); Mean Corpuscular HGB Conc 37.2 g/dl (32-36); Mean Corpuscular Hemoglobin 34.6 pg (26-34); Mean Corpuscular Volume 92.9 fl (80-100); Mean Platelet Volume 9.5 fl (7.4-10.4); Platelet Count Result 178 k/mm3 (150-375); Red Cell Distribution Width 32.2 % (11.5-14.5); White Blood Count 4.8 K/mm3 (4.5-10.0)
[2023-04-29 05:40] LABS: Anion Gap 7 mmol/L (8-16); Blood Urea Nitrogen 20 mg/dL (9-20); Calcium 8.5 mg/dL (8.4-10.2); Carbon Dioxide 26 mmol/L (22-30); Chloride 105 mmol/L (98-107); Estimated CRCL calculation 55 ml/min; Estimated Glomerular Filt Rate 59; Glucose 94 mg/dL (65-110); Magnesium 2.2 mg/dL (1.6-2.3); Potassium 3.9 mmol/L (3.4-5.0); Sodium 138 mmol/L (137-145)
[2023-04-29 05:42] LABS: INR 1.2; Prothrombin Time 15.9 Seconds (11.1-14.7)
[2023-04-29] MEDS: HEPARIN SOD/D5W 100 UNITS/ML 25,000 UNITS/250 ML BAG 15 UNITS IV CONT (05:49)
[2023-04-29 07:52] LABS: Partial Thromboplastin Time 88.4 SECONDS (22.3-36.8)
[2023-04-29] MEDS: ASPIRIN 81 MG CHEWABLE TABLET PO (08:22)
[2023-04-29] MEDS: PANTOPRAZOLE 40 MG TABLET PO (08:22)
[2023-04-29] MEDS: SUCRALFATE 1 GM TABLET PO ×3 (08:22→21:26)
[2023-04-29] MEDS: methiMAzole 5 MG TAB PO (08:22)
[2023-04-29] MEDS: OLANZapine 2.5 MG TABLET PO ×2 (08:22→21:20)
[2023-04-29] MEDS: ARTIFICIAL TEARS OPHTH SOLN 15 ML BOTTLE 1 DROP EACH EYE ×2 (08:23→18:07)
[2023-04-29] MEDS: VENLAFAXINE HCL 75 MG TABLET PO ×2 (08:23→18:05)
[2023-04-29] MEDS: buPROPion HCL 75 MG TABLET PO ×2 (08:23→21:19)
[2023-04-29] MEDS: FINASTERIDE 5 MG TABLET PO (08:23)
[2023-04-29] MEDS: HYDROcodone/acetaminophen (*CRX) 5-325 MG TABLET 1 TAB PO ×2 (08:34→18:06)
--- NOTE | 2023-04-29 09:20 | PM.IMPN ---
Progress Note: A&P Assessment and Plan (1) Anemia: Code(s): D64.9 - Anemia, unspecified Status: Acute (2) NSTEMI (non-ST elevated myocardial infarction): Code(s): I21.4 - Non-ST elevation (NSTEMI) myocardial infarction Status: Acute (3) Chest pain: Code(s): R07.9 - Chest pain, unspecified Status: Acute (4) Gastroesophageal reflux disease: Code(s): K21.9 - Gastro-esophageal reflux disease without esophagitis Status: Acute (5) Coronary artery disease: Qualifiers: Coronary Disease-Associated Artery/Lesion type: [place] artery [place] vs. transplanted heart: [place] heart Associated angina: without angina Qualified Code(s): I25.10 - Atherosclerotic heart disease of [place] coronary artery without angina pectoris Code(s): I25.10 - Atherosclerotic heart disease of [place] coronary artery without angina pectoris Status: Chronic (6) Venous stasis dermatitis: Code(s): I87.2 - Venous insufficiency (chronic) (peripheral) Status: Acute Plan 73-year-old pleasant male with a history of CAD status post multiple stents with most recent intervention 08/11/2021 with stent to RCA with complication by vessel dissection and pericardial effusion [place], GERD, chronic anemia, hypertension, hyperthyroidism, history of vascular dementia, hyperlipidemia, remote TIA, who presented with chest pain after having bowel movement. Patient reports nitroglycerin did not resolve the chest pain but a GI cocktail did the trick. He was admitted for NSTEMI on 04/27/2023 Troponin peaked at 1.6 and he is chest pain-free now. We appreciate Cardiology recommendations. He is on heparin drip and to be NPO at midnight for planned cardiac catheterization in the morning. Continue to monitor hemoglobin. On 04/29 he has no chest pain. Pending cardiac catheterization. FEN: Saline lock IV, NPO for catheterization GI prophylaxis: On PPI at home, continue Protonix. DVT prophylaxis: On heparin drip Lines: Peripheral IV Code Status: DNR Dispo: Stable Subjective Date/time seen: 04/29/23 09:20 Interval history: No acute overnight events. Patient denies chest pain or shortness of breath. Review of Systems Review of Systems: All systems reviewed & are unremarkable except as noted in HPI and below (Subjective) Exam Const: General: comfortable and no acute distress Eyes: Pupils: Equal, round and reactive pupils present Resp: Effort & Inspection: normal respiratory effort Auscultation: clear to auscultation bilaterally Cardio: Rate: regular rate Rhythm: regular rhythm Heart sounds: no gallops, no murmurs and no rubs GI: GI Palp: Yes Soft to palpation and No Tenderness to palpation present (GI) Extrem: General: no edema Objective Data Vital Signs Vital Signs: Vital Signs - 24 hr 04/28/23 12:00 04/28/23 15:58 04/28/23 10:00 Temperature 97.5 F L 98.2 F Pulse Rate 90 95 92 Respiratory Rate 18 18 Blood Pressure 104/66 110/53 L Pulse Oximetry 100 100 Oxygen Delivery 04/28/23 12:00 04/28/23 14:00 04/28/23 16:00 Temperature Pulse Rate 90 88 88 Respiratory Rate Blood Pressure Pulse Oximetry Oxygen Delivery 04/28/23 18:00 04/28/23 12:00 04/28/23 16:00 Temperature Pulse Rate 89 Respiratory Rate Blood Pressure Pulse Oximetry Oxygen Delivery Room Air Room Air 04/28/23 21:13 04/28/23 20:00 04/28/23 21:46 Temperature 97.5 F L Pulse Rate 92 92 Respiratory Rate 18 Blood Pressure 119/59 L Pulse Oximetry 99 Oxygen Delivery Room Air 04/28/23 23:52 04/29/23 00:00 04/29/23 03:18 Temperature 97.5 F L 97.2 F L Pulse Rate 94 78 Respiratory Rate 20 20 Blood Pressure 113/48 L 108/53 L Pulse Oximetry 99 98 Oxygen Delivery Room Air 04/28/23 20:00 04/28/23 22:00 04/29/23 00:00 Temperature Pulse Rate 94 91 72 Respiratory Rate Blood Pressure Pulse Oximetry Oxygen Delivery 0
[2023-04-29] MEDS: FERROUS SULFATE 325 MG TABLET DR PO (11:30)
--- NOTE | 2023-04-29 13:08 | WPDMODSED ---
Moderate Sedation Note-Pt Data Patient Data Diagnosis: Acute coronary syndrome Present Complaint: chest pain Procedure to be performed/Plan: left heart catheterization Allergies Allergy/AdvReac Type Severity Reaction Status Date / Time haloperidol [From Haldol] Allergy Unknown Verified 04/07/23 01:39 Penicillins Allergy Unknown Verified 04/27/23 03:42 Home Medications Medication Instructions Recorded Confirmed Type acetaminophen 325 mg chewable 650 mg PO Q6H PRN Pain (Scale 12/11/21 04/27/23 History tablet Score 1-3) aspirin 81 mg chewable tablet 81 mg PO DAILY 12/11/21 04/27/23 History atorvastatin 80 mg tablet 80 mg PO HS 12/11/21 04/27/23 History polyethylene glycol 3350 17 17 g PO DAILY PRN Constipation 12/11/21 04/27/23 History gram/dose oral powder venlafaxine 75 mg tablet 75 mg PO BID 12/11/21 04/27/23 History tamsulosin 0.4 mg capsule 0.4 mg PO HS #30 caps 01/07/22 04/27/23 Rx esomeprazole magnesium 40 mg 40 mg PO BID 04/29/22 04/27/23 History capsule,delayed release polyvinyl alcohol-povidone (PF) 1 drp EACH EYE TID 04/29/22 04/27/23 History 1.4 %-0.6 % eye drops in a dropperette (Refresh Classic (PF)) bupropion HCl 75 mg tablet 75 mg PO DAILY 04/30/22 04/27/23 History finasteride 5 mg tablet (Proscar) 5 mg PO QAM #30 tabs 05/03/22 04/27/23 Rx hydrochlorothiazide 12.5 mg tablet 12.5 mg PO DAILY 03/25/23 04/27/23 History olanzapine 2.5 mg tablet 2.5 mg PO BID 03/25/23 04/27/23 History potassium chloride 20 mEq 20 meq PO DAILY 03/25/23 04/27/23 History tablet,extended release(part/cryst) sucralfate 1 gram tablet 1 g PO ACHS 03/25/23 04/27/23 History hydrocodone 5 mg-acetaminophen 325 1 tablet PO Q6H PRN pain #30 tabs 03/30/23 04/27/23 Rx mg tablet methimazole 5 mg tablet 5 mg PO DAILY hyperthyroidism #30 03/30/23 04/27/23 Rx tabs Skin Prep Wipes 04/27/23 04/27/23 History gabapentin 100 mg capsule 100 mg PO HS 04/27/23 04/27/23 History ondansetron 4 mg disintegrating 4 mg PO Q4H PRN Nausea And Vomiting 04/27/23 04/27/23 History tablet Current Medications: Active Medications Acetaminophen (Acetaminophen 325 Mg Tablet) 650 mg BY MOUTH Q6H PRN PRN Reason: Pain (Scale Score 1-3) Hydrocodone Bitart/Acetaminophen (Hydrocodone/Acetaminophen (*Crx) 5-325 Mg Tablet) 1 tab PO Q6H PRN PRN Reason: Pain Rated 4-6 Last Admin: 04/29/23 08:34 Dose: 1 tab Artificial Tears (Artificial Tears Ophth Soln 15 Ml Bottle) 1 drop EACH EYE TID [facility] Last Admin: 04/29/23 08:23 Dose: 1 drop Aspirin (Aspirin 81 Mg Chewable Tablet) 81 mg PO DAILY@0800 [facility] Last Admin: 04/29/23 08:22 Dose: 81 mg Atorvastatin Calcium (Atorvastatin 40 Mg Tablet) 80 mg PO [facility] Last Admin: 04/28/23 21:13 Dose: 80 mg Bupropion HCl (Bupropion Hcl 75 Mg Tablet) 75 mg PO Q12HR [facility] Last Admin: 04/29/23 08:23 Dose: 75 mg Dextrose (Dextrose 50% 25 Gm/50 Ml Syringe) 12.5 gm IV PUSH PRN PRN; Protocol PRN Reason: Hypoglycemia Ferrous Sulfate (Ferrous Sulfate [address]) 325 mg PO DAILY [facility] Last Admin: 04/29/23 11:30 Dose: 325 mg Finasteride (Finasteride 5 Mg Tablet) 5 mg PO [facility] Last Admin: 04/29/23 08:23 Dose: 5 mg Gabapentin (Gabapentin 100 Mg Capsule) 100 mg PO [facility] Last Admin: 04/28/23 21:15 Dose: 100 mg Glucagon (Glucagon For Inj 1 Mg Vial) 1 mg IM PRN PRN; Protocol PRN Reason: Hypoglycemia Glucose (Glucose Oral Gel 15 Gm Of Glucse In 37.5 Gm Tube) 15 gm PO PRN PRN; Protocol PRN Reason: Hypoglycemia Heparin Sodium (Porcine) (Heparin Sodium 5,000 Units/Ml Vial) 4,000 units IV PUSH PRN PRN PRN Reason: aPTT less than 55 seconds Last Admin: 04/28/23 18:54 Dose: 4,000 units Heparin Sodium (Porcine) (Heparin Sodium 5,000 Units/Ml Vial) 3,000 units IV PUSH PRN PRN PRN Reason: aPTT 55 - 70 seconds Last Admin: 04/28/23 06:13 Dose: 3,000 units Hydrochlorothiazide (Hydrochlorothiazide 12.5 Mg Capsule) 12.5 mg PO DAILY [facility] Last Admin: 04/29/23 08:33 Dose: Not Given
--- NOTE | 2023-04-29 14:08 | WPDCARDPROC ---
Cardiac Cath Procedure Note Date of procedure:: 04/29/23 Performing physician:: Joaquin Enriquez MD Indication:: acute coronary syndrome Brief clinical history:: this is a 73-year-old man with coronary disease which was treated elsewhere with complex and difficult PCI of the right coronary artery. According to the report the right coronary was stented from the ostium down to the 3rd portion. This was in 2021. He enters this hospital with chest pain and a modest try troponin rise prompting the recommendation for repeat angiography. He has not received any of his cardiac care here at [facility]. Procedure Procedure performed:: Left ventriculography coronary angiography Sedation/Medication given:: fentanyl 50 mg Versed 2 case start time 1:38 p.m. case end time 1:59 p.m. sedation provided by Jazmyne Patricio RN, trained observer Access site:: right femoral artery Estimated blood loss:: 20 cc Procedure note:: patient was brought to the cardiac catheterization lab in the postabsorptive state where the right femoral triangle was prepped and draped in the usual fashion. Anesthesia was provided with 1% lidocaine infiltrated locally. Using the modified Seldinger technique the femoral artery was punctured and a 5 Khmer vascular sheath was placed. After this I used a 5 [place] angled pigtail catheter to measure left-sided hemodynamics and to perform left ventriculography in the 30 degree LINDER projection. Following this I engaged and injected the left coronary artery in multiple projections using a 5 [place] FL4 catheter. Following this the right coronary artery was engaged and injected using 5 Khmer JR4 catheter. The cineangiograms were reviewed and the case was terminated. The patient was taken to the holding area for manual sheath removal. Procedure was well tolerated and uncomplicated. There was no groin hematoma upon leaving the cardiac catheterization lab. Findings:: Hemodynamics: Central aortic pressure is 96 over 44 left ventricle 96/5 end-diastolic pressure 22 no gradient on pullback across the aortic valve. Left ventricle: The LV is moderately dilated. The infero posterior segment is akinetic. The remainder of the LV contracts very poorly. The global ejection fraction is visually estimated to be in the range of 25%. The left main coronary artery is short and is patent the left anterior descending extends down to around the apex and is diffusely disease. In the proximal segment the LAD has no high-grade lesions. A very small proximal diagonal branch has an ostial 90% stenosis. This is a very small vessel. After this there is a discrete 70% stenosis. Distal to this and all the way down to the apex the LAD is diffusely diseased throughout its extent with areas of at least 80% stenosis throughout the remainder of the LAD. The circumflex is a moderate caliber artery giving rise to the marginal branches and is remarkable for mild luminal irregularities there are no significant flow-limiting lesions seen in the circumflex. The right coronary artery was moderate caliber and dominant to the posterior circulation. The right coronary artery is 100% occluded at its ostium. There is some [id number] collateral filling seen to the RPDA and PL branches. Conclusion:: 1. Right coronary dominant circulation with 100% occlusion of the right coronary artery at its origin that this vessel was stented from the ostium down to the 3rd portion approximately 1 and half years ago. The RCA is totally occluded And does receive some [id number] collateral filling. 2. Approximately 70% mid stenosis in the LAD followed by severe diffuse disease of the remainder of the LAD all the way down to the apex as detailed above. There is 90% stenosis at the ostium of a very small proximal diagonal branch as well. This diffusely diseased LAD is certainly not readily amenable to P CI 3. infra posterior akinesia consistent wit
--- NOTE | 2023-04-29 14:17 | PM.PNCARD ---
Progress Note: A&P Assessment and Plan (1) NSTEMI (non-ST elevated myocardial infarction): Code(s): I21.4 - Non-ST elevation (NSTEMI) myocardial infarction Status: Acute (2) Ischemic cardiomyopathy: Code(s): I25.5 - Ischemic cardiomyopathy Status: Acute Plan 73-year-old man with: Severe coronary artery disease with total occlusion of the right coronary artery at its ostium. This vessel underwent aggressive PCI elsewhere about a year and a half ago. Vessel is now totally occluded and does receive some [id number]-sxtoo collateral filling. There is severe diffuse disease of the LAD is detailed in the catheterization report. This vessel angiographically is certainly not readily amenable to PCI given the severe diffuse nature of the disease. He is also found in the dye lab technician today to have a severe ischemic cardiomyopathy with a low ejection fraction. Patient that this time should be treated medically with guideline directed medical therapy for LV dysfunction and for his ischemic disease. I will transition his metoprolol to metoprolol succinate. Start a very low dose of Entresto later this evening along with some oral nitrate therapy. Will consider adding dual anti-platelet therapy if need be however his significant anemia does give us some concern in terms of taking that step. Joaquin Enriquez MD [facility] Subjective Date/time seen: date of service:04/29/23 14:17 Interval history: Follow-up for NSTEMI Patient states he is feeling well. States he had an episode of chest discomfort not long after our discussion yesterday but only lasted 5 minutes and resolved spontaneously without any recurrence. He denies shortness of breath and feels quite well at this time. No new issues overnight otherwise. He well without difficulty. Edema improving. Denies orthopnea. He is eager to proceed with coronary angiography tomorrow. Date of service 04/29/2023: Patient is free of significant complaints underwent coronary angiography today as detailed in the dye lab technician note. We will be recommending medical therapy for his severe diffuse coronary disease and ischemic cardiomyopathy at this time. Exam Narrative: General: Elderly male very talkative sitting upright in bed, speaking full sentences well developed, alert and oriented x3. No apparent distress, comfortable, pleasant, and cooperative. Head: atraumatic, normocephalic Eyes: EOM intact, sclerae anicteric, conjunctivae unremarkable Ears/Nose: external inspection of ears and nose were grossly normal Mouth/Throat: oral mucosa pink and moist Neck: supple, normal range of motion, no jugular venous distention or carotid bruits, thyroid nonpalpable, trachea midline. Cardiac: Regular rate and rhythm, normal S1-S2, no murmurs No gallops or rubs. Lungs: Diminished breath sounds diffusely, no rales, wheezes, or rhonchi. Abdomen: Obese, soft, nontender, nondistended, positive bowel sounds throughout. No appreciable hepatosplenomegaly, rebound guarding or rigidity noted. Abdominal aorta nonpalpable, no appreciable bruits. Extremities: 1+ bilateral lower extremity edema, no clubbing, or cyanosis. Wrinkled skin of lower extremities, extremities warm and well perfused. Hyperpigmented reddened skin bilateral anterior pretibial regions Skin: Warm and dry without ecchymoses, rashes, and/or petechiae. Musculoskeletal: Muscle strength and tone intact throughout without obvious deformities. Vascular: Carotid upstrokes 2+ bilaterally, radial pulses 2+ bilaterally, dorsalis pedis pulses 2+ bilaterally Neurologic: Cranial nerves 2-12 grossly intact, examination grossly nonfocal Psychiatric: Mood calm and appropriate. Tangential responses to questions requiring redirection frequently Objective Data Vital Signs Vital Signs: Vital Signs - 24 hr 04/28/23 15:58 04/28/23 16:00 04/28/23 18:00 Temperature 36.8 C Puls
[2023-04-29 17:20] LABS: Activated Clotting Time 152 SEC (74-137)
[2023-04-29 17:20] LABS: Activated Clotting Time 152 SEC (74-137)
[2023-04-29] MEDS: TAMSULOSIN HCL 0.4 MG CAPSULE PO (21:18)
[2023-04-29] MEDS: ATORVASTATIN 40 MG TABLET 80 MG PO (21:18)
[2023-04-29] MEDS: GABAPENTIN 100 MG CAPSULE PO (21:20)
[2023-04-29] MEDS: SACUBITRIL/VALSARTAN 12-13 MG TABLET 1 TAB PO (21:20)
[2023-04-30] VITALS (14 sets, daily range): BP systolic 90–106; BP diastolic 45–72; PULSE 72–92; RESP 16–20; TEMP 36.4–36.9; O2SAT 96–100
[2023-04-30] MEDS: HYDROcodone/acetaminophen (*CRX) 5-325 MG TABLET 1 TAB PO ×3 (00:09→14:28)
[2023-04-30 05:27] LABS: Anion Gap 8 mmol/L (8-16); Blood Urea Nitrogen 19 mg/dL (9-20); Calcium 8.2 mg/dL (8.4-10.2); Carbon Dioxide 20 mmol/L (22-30); Chloride 109 mmol/L (98-107); Estimated CRCL calculation 60 ml/min; Estimated Glomerular Filt Rate > 60; Glucose 92 mg/dL (65-110); Magnesium 2.1 mg/dL (1.6-2.3); Sodium 137 mmol/L (137-145)
[2023-04-30 05:34] LABS: Basophils Percent Auto 0.5 % (0.2-1.2); Eosinophils Absolute Auto 0.3 K/mm3 (0-0.3); Eosinophils Percent Auto 7.9 % (0-4.4); Hematocrit 23.2 % (42.0-52.0); Hemoglobin 7.9 g/dL (14.0-18.0); Immature Granulocyte Absolute 0.01 K/mm3 (0.00-0.031); Immature Granulocyte Percent A 0.2 % (0-0.5); Lymphocytes Absolute Auto 1.68 K/mm3 (0.9-3.2); Lymphocytes Percent Auto 39.2 % (18.3-44.2); Mean Corpuscular HGB Conc 34.1 g/dl (32-36); Mean Corpuscular Hemoglobin 31.9 pg (26-34); Mean Corpuscular Volume 93.5 fl (80-100); Mean Platelet Volume 10.1 fl (7.4-10.4); Monocytes Absolute Auto 0.6 K/mm3 (0.1-0.6); Neutrophils Absolute Auto 1.6 K/mm3 (1.3-6.7); Neutrophils Percent Auto 38.2 % (45.5-73.1); Platelet Count Result 180 k/mm3 (150-375); Red Blood Count 2.48 M/mm3 (4.6-6.20); White Blood Count 4.3 K/mm3 (4.5-10.0)
[2023-04-30 05:54] LABS: Anisocytosis 2+ (NORMAL); Platelet Estimate Adequate (Adequate); Poikilocytosis 2+ (NORMAL)
[2023-04-30 05:55] LABS: Schistocytes None Seen (NORMAL)
[2023-04-30] MEDS: SUCRALFATE 1 GM TABLET PO ×3 (06:42→16:39)
--- NOTE | 2023-04-30 09:40 | PM.PNCARD ---
Progress Note: A&P Assessment and Plan (1) NSTEMI (non-ST elevated myocardial infarction): Code(s): I21.4 - Non-ST elevation (NSTEMI) myocardial infarction Status: Acute Assessment and Plan: Severe coronary artery disease with total occlusion of the right coronary artery at its ostium. This vessel underwent aggressive PCI elsewhere about a year and a half ago. Vessel is now totally occluded and does receive some [id number] collateral filling. There is severe diffuse disease of the LAD is detailed in the catheterization report. This vessel angiographically is certainly not readily amenable to PCI given the severe diffuse nature of the disease. this will be managed medically. Continue aspirin, statin Isosorbide has been started can consider addition of Plavix will defer for because of anemia continue aggressive risk factor modification (2) Ischemic cardiomyopathy: Code(s): I25.5 - Ischemic cardiomyopathy Status: Acute Assessment and Plan: EF 30-35% echo from 1222 2022, and LV systolic dysfunction noted yesterday on LV gram. LVEDP 22. Continue guideline directed medical therapy with Entresto and metoprolol. Ideally, would like to add spironolactone SGLT2 inhibitor, however, blood pressure remains a bit soft. Can optimize his medical therapy as an outpatient. Continue oral nitrate therapy with isosorbide Subjective Date/time seen: 04/30/23 09:40 Interval history: Follow-up for NSTEMI Patient states he is feeling well. States he had an episode of chest discomfort not long after our discussion yesterday but only lasted 5 minutes and resolved spontaneously without any recurrence. He denies shortness of breath and feels quite well at this time. No new issues overnight otherwise. He well without difficulty. Edema improving. Denies orthopnea. He is eager to proceed with coronary angiography tomorrow. Date of service 04/29/2023: Patient is free of significant complaints underwent coronary angiography today as detailed in the lab technologist note. We will be recommending medical therapy for his severe diffuse coronary disease and ischemic cardiomyopathy at this time. Date of service 04/30/2023: He has not had any recurrent chest pain. Denies any shortness of breath, palpitations. Reviewed the plan of care with him. Review of Systems Review of Systems: Remainder of the review of systems is otherwise negative aside from that noted in the HPI. All systems reviewed & are unremarkable except as noted in HPI and below Constitutional: Constitutional: Reports as per HPI and Reports no additional constitutional complaints Eyes: Eyes: Reports as per HPI and Reports no additional eye complaints ENT: Reports system reviewed and no additional complaints, except as documented and Reports as per HPI Cardiovascular: Cardiovascular: Reports as per HPI and Reports no additional cardiovascular complaints Respiratory: Respiratory: Reports as per HPI and Reports no additional respiratory complaints Gastrointestinal: Gastrointestinal: Reports as per HPI and Reports no additional gastrointestinal complaints Genitourinary: Genitourinary: Reports no additional male genitourinary complaints and Reports as per HPI Musculoskeletal: Musculoskeletal: Reports no additional musculoskeletal complaints and Reports as per HPI Integumentary/Breasts: Skin/Breast: Reports system reviewed and no additional complaints, except as docu and Reports as per HPI Neurologic: Reports system reviewed and no additional complaints, except as documented and Reports as per HPI Psychiatric: Psychiatric: Reports no additional psychiatric complaints and Reports as per HPI Endocrine: Endocrine: Reports no additional endocrine complaints and Reports as per HPI Hematologic/Lymphatic: Hematologic/Lymphatic: Reports no additional hematologic/lymphatic complaints and Reports as per HPI Allergic/Immunologic: Allergic/Immun
[2023-04-30] MEDS: ASPIRIN 81 MG CHEWABLE TABLET PO (10:38)
[2023-04-30] MEDS: buPROPion HCL 75 MG TABLET PO (10:38)
[2023-04-30] MEDS: ARTIFICIAL TEARS OPHTH SOLN 15 ML BOTTLE 1 DROP EACH EYE ×2 (10:38→13:29)
[2023-04-30] MEDS: FERROUS SULFATE 325 MG TABLET DR PO (10:38)
[2023-04-30] MEDS: VENLAFAXINE HCL 75 MG TABLET PO ×2 (10:38→16:39)
[2023-04-30] MEDS: METOPROLOL SUCCINATE EXT REL 25 MG TABCR PO (10:39)
[2023-04-30] MEDS: ISOSORBIDE MONONITRATE 30 MG TAB.ER.24H PO (10:39)
[2023-04-30] MEDS: FINASTERIDE 5 MG TABLET PO (10:39)
[2023-04-30] MEDS: methiMAzole 5 MG TAB PO (10:39)
[2023-04-30] MEDS: OLANZapine 2.5 MG TABLET PO (10:40)
[2023-04-30] MEDS: PANTOPRAZOLE 40 MG TABLET PO (10:40)
[2023-04-30] MEDS: SACUBITRIL/VALSARTAN 12-13 MG TABLET 1 TAB PO (10:40)
--- NOTE | 2023-04-30 15:31 | PM.DS ---
DS: Admitting Diagnosis Discharge Date April 30, 2023 Admitting Diagnosis Chest pain DS: Discharge Diagnosis Discharge Diagnosis (1) NSTEMI (non-ST elevated myocardial infarction): Code(s): I21.4 - Non-ST elevation (NSTEMI) myocardial infarction Status: Acute (2) Ischemic cardiomyopathy: Code(s): I25.5 - Ischemic cardiomyopathy Status: Acute DS: Summary Hospital Course Hospital Course: 73-year-old pleasant male with history of CAD status post multiple stents with most recent intervention 08/11/2021 with stent to RCA with complication by vessel dissection and pericardial effusion at [place], GERD, chronic anemia, hypertension, hyperthyroidism, history of vascular dementia, hyperlipidemia, rule out TIA. The patient presented with chest pain which incited when he was having a bowel movement. He reports nitroglycerin did not resolve the pain but a GI cocktail did. He was admitted on 04/27/2023 and on 04/29/2023 underwent a cardiac catheterization. Severe coronary artery disease with total occlusion of the right coronary artery at its ostium.? This vessel underwent aggressive PCI elsewhere about a year and a half ago.? Vessel is now totally occluded and does receive some dvea-re-uehab collateral filling.? There is severe diffuse disease of the LAD is detailed in the catheterization report.? This vessel angiographically is certainly not readily amenable to PCI given the severe diffuse nature of the disease.? this will be managed medically. (per cardiology) The patient will be discharged on aspirin and statin. Isosorbide was started but we will hold that due to lower blood pressure. Plavix is a consideration but that will be handled as outpatient due to his anemia. On left ventriculogram he had a LVEDP of 22 and systolic dysfunction. Metoprolol and Entresto have been started. Further GDM T to be added as an outpatient if his blood pressure remains stable. In March 2023 he had iron studies performed with a low iron and low ferritin. His chronic anemia with baseline in the 8's so we have started him on iron tablet. He is to follow-up with his PCP on this matter. The patient is amenable to the plan and all questions have been answered to satisfaction. He will be discharged home in stable condition with 1 week follow-up to his PCP and 2 week follow-up to Ro Salinas NP of Cardiology Time Spent with Patient Time attestation: Total time spent providing and/or coordinating discharge services: Exam Const: General: comfortable and no acute distress Eyes: Pupils: Equal, round and reactive pupils present Resp: Effort & Inspection: normal respiratory effort Auscultation: clear to auscultation bilaterally Cardio: Rate: regular rate Rhythm: regular rhythm Heart sounds: no gallops, no murmurs and no rubs GI: GI Palp: Yes Soft to palpation and No Tenderness to palpation present (GI) Extrem: General: no edema DS: Data Data Completed and Pending Labs on day of discharge: Labs from last 24 hours 04/30/23 04/29/23 04/29/23 04:27 15:51 15:36 WBC 4.3 L RBC 2.48 L Hgb 7.9 L Hct 23.2 L MCV 93.5 MCH 31.9 D MCHC 34.1 RDW 32.0 H Plt Count 180 MPV 10.1 Immature Gran % (Auto) 0.2 Neut % (Auto) 38.2 L Lymph % (Auto) 39.2 Sac % (Auto) 14.0 H Eos % (Auto) 7.9 H Baso % (Auto) 0.5 Lymph # (Auto) 1.68 Sac # (Auto) 0.6 Eos # (Auto) 0.3 Baso # (Auto) 0.0 Abs Immat Gran (auto) 0.01 Absolute Neuts (auto) 1.6 Absolute Nucleated RBC 0.0 Nucleated RBC % 0.0 Platelet Estimate Adequate Poikilocytosis 2+ Anisocytosis 2+ Schistocytes None seen APTT 38.0 H Activ Coag Time Kaolin 152 H Sodium 137 Potassium 4.0 Chloride 109 H Carbon Dioxide 20 L Anion Gap 8 BUN 19 Creatinine 1.10 Estim Creat Clear Calc 60 Estimated GFR > 60 Glucose 92 Calcium 8.2 L Magnesium 2.1 Blood Type Antib
--- NOTE | 2023-04-30 16:53 | PC.NURSE ---
pt being discharged back to [facility]- report given to Machelle HANKINS- ambulance service called for transport
== END 2023-04-30 20:00 | DRG 282 ==
LOC: ANHED 04-27 01:20 → ANHIMU 04-27 02:37
PROVIDERS: Specialist; Admitting Provider Student in an Organized Health Care Education/Training Program; Emergency Provider Emergency Medicine; PCP Family Medicine; Visit Provider General Practice
PROC: 4A023N7 Measurement of Cardiac Sampling and Pressure, Left Heart, Percutaneous Approach (ICD-10-PCS; CPT 93452; principal; 2023-04-29 14:30)
DX: I21.4 Non-ST elevation (NSTEMI) myocardial infarction (principal); I25.10 Atherosclerotic heart disease of native coronary artery without angina pectoris; I25.5 Ischemic cardiomyopathy; I25.2 Old myocardial infarction; Z95.5 Presence of coronary angioplasty implant and graft; D64.9 Anemia, unspecified; E11.51 Type 2 diabetes mellitus with diabetic peripheral angiopathy without gangrene; E66.01 Morbid (severe) obesity due to excess calories; E11.42 Type 2 diabetes mellitus with diabetic polyneuropathy; F03.90 Unspecified dementia, unspecified severity, without behavioral disturbance, psychotic disturbance, mood disturbance, and anxiety; F41.9 Anxiety disorder, unspecified; F32.A Depression, unspecified; I10 Essential (primary) hypertension; K21.9 Gastro-esophageal reflux disease without esophagitis; Z68.32 Body mass index [BMI] 32.0-32.9, adult; Z86.711 Personal history of pulmonary embolism; Z86.718 Personal history of other venous thrombosis and embolism; Z86.73 Personal history of transient ischemic attack (TIA), and cerebral infarction without residual deficits; Z90.49 Acquired absence of other specified parts of digestive tract; Z66 Do not resuscitate; Z79.82 Long term (current) use of aspirin; Z88.0 Allergy status to penicillin; Z28.21 Immunization not carried out because of patient refusal
CPT/HCPCS: 36415; 71045; 80048; 80053; 82948; 83690; 83735; 84484; 85014; 85018; 85025; 85027; 85610; 85730; 86850; 86860; 86870; 86880; 86900; 86901; 86902; 86922; 93005; 93458; 96365; 96366; 96375; 99285; A9270; C1887; C1894; C9113; G0378; J1644; J2250; J2270; J3010; J7040

== ENCOUNTER 2023-06-13 16:29 | Emergency (ER) | payer OTHER, MEDICAID, SELFPAY ==
[2023-06-13] VITALS (7 sets, daily range): BP systolic 119–134; BP diastolic 56–97; PULSE 73–89; RESP 16–22; TEMP 37.1; O2SAT 96–100
--- NOTE | ~2023-06-13 | XR_ITS ---
XR chest 2V 06/13/2023 17:21 Indication: Bilateral leg edema and shortness of breath. Procedure: 2 view chest Comparison: Comparison to multiple prior studies sequentially, with oldest reviewed study dated 08/2022. Findings: Heart size normal. There is bibasilar airspace disease, best seen on the lateral view. Smal l pleural effusions. No pneumothorax. No acute osseous abnormality. Impression: 1: Bibasilar airspace disease may represent edema or pneumonia. Reviewed, dictated and finalized at location A. Impression: 1: Bibasilar airspace disease may represent edema or pneumonia.
--- NOTE | 2023-06-13 16:33 | ECG_ITS ---
Measurements Intervals [place] Rate: 78 P: 48 [place]: 191 QRS: 22 QRSD: 109 T: -59 QT: 374 QTc: 427 Interpretive Statements SINUS RHYTHM BORDERLINE ST-T WAVE ABNORMALITY- ANTEROLAT/HIGH LAT LEADS INFERIOR INFARCT, AGE INDETERMINATE ABNORMAL ECG COMPARED TO ECG 04/27/2023 03:47:11 NO SIGNIFICANT CHANGES Electronically Signed On 06-14-2023 13:10:24 CDT by Andrea Yanes D.O.
[2023-06-13 17:13] LABS: Basophils Percent Auto 0.5 % (0.2-1.2); Eosinophils Absolute Auto 0.2 K/mm3 (0-0.3); Eosinophils Percent Auto 2.7 % (0-4.4); Hematocrit 28.4 % (42.0-52.0); Immature Granulocyte Absolute 0.01 K/mm3 (0.00-0.031); Immature Granulocyte Percent A 0.2 % (0-0.5); Lymphocytes Absolute Auto 2.04 K/mm3 (0.9-3.2); Lymphocytes Percent Auto 32.7 % (18.3-44.2); Mean Corpuscular HGB Conc 35.2 g/dl (32-36); Mean Corpuscular Hemoglobin 32.5 pg (26-34); Mean Corpuscular Volume 92.2 fl (80-100); Mean Platelet Volume 9.5 fl (7.4-10.4); Monocytes Absolute Auto 0.8 K/mm3 (0.1-0.6); Monocytes Percent Auto 13.5 % (2.6-8.5); Neutrophils Absolute Auto 3.1 K/mm3 (1.3-6.7); Neutrophils Percent Auto 50.4 % (45.5-73.1); Platelet Count Result 203 k/mm3 (150-375); Red Blood Count 3.08 M/mm3 (4.6-6.20); Red Cell Distribution Width 30.3 % (11.5-14.5); White Blood Count 6.2 K/mm3 (4.5-10.0)
[2023-06-13 17:21] LABS: Anisocytosis 1+; Ovalocytes 1+; Platelet Estimate Adequate (Adequate); Schistocytes None Seen
[2023-06-13 17:22] LABS: Alanine Aminotransferase 15 U/L (6-50); Albumin Level 3.9 g/dL (3.5-5.1); Alkaline Phosphatase 125 U/L (38-126); Anion Gap 6 mmol/L (8-16); Aspartate Amino Transferase 29 U/L (17-59); Bilirubin,Total 0.6 mg/dL (0.2-1.3); Blood Urea Nitrogen 20 mg/dL (9-20); Calcium 8.8 mg/dL (8.4-10.2); Carbon Dioxide 28 mmol/L (22-30); Chloride 105 mmol/L (98-107); Estimated CRCL calculation 61 ml/min; Estimated Glomerular Filt Rate > 60; Glucose 96 mg/dL (65-110); Potassium 3.8 mmol/L (3.4-5.0); Sodium 139 mmol/L (137-145)
[2023-06-13 17:24] LABS: INR 1.3; Partial Thromboplastin Time 31.7 Seconds (22.3-36.8); Prothrombin Time 16.8 Seconds (11.1-14.7)
[2023-06-13 17:33] LABS: NT Pro B Type Natriuretic Pept 8470 pg/mL (19.9-100); Troponin I < 0.012 ng/mL (0.000-0.034)
--- NOTE | 2023-06-13 19:18 | PC.NURSE ---
Assumed care of pt from LEONORA Lopez at this time.
[2023-06-13] MEDS: FUROSEMIDE INJ 40 MG/4 ML VIAL IV PUSH (19:23)
--- NOTE | 2023-06-13 20:15 | ED.GENADULT ---
HPI - General Adult General Chief complaint: Shortness of Breath/Dyspnea Stated complaint: scrotal & b/l LE edema Time Seen by Provider: 06/13/23 18:53 History of Present Illness HPI narrative: This is a 73-year-old male with a history of HFrEF 30% presenting with lower extremity and scrotal edema. Patient is was to be taking 40 mg of p.o. Lasix daily. He has been cutting his dose in half because it is making him urinate too much. Now he has swelling of his legs and scrotum. Patient denies chest pain difficulty breathing abdominal pain fever chills nausea vomiting or diarrhea. Related Data Home Medications Medication Instructions Recorded Confirmed acetaminophen 325 mg chewable 650 mg PO Q6H PRN Pain (Scale 12/11/21 04/27/23 tablet Score 1-3) aspirin 81 mg chewable tablet 81 mg PO DAILY 12/11/21 04/27/23 atorvastatin 80 mg tablet 80 mg PO HS 12/11/21 04/27/23 polyethylene glycol 3350 17 17 g PO DAILY PRN Constipation 12/11/21 04/27/23 gram/dose oral powder venlafaxine 75 mg tablet 75 mg PO BID 12/11/21 04/27/23 esomeprazole magnesium 40 mg 40 mg PO BID 04/29/22 04/27/23 capsule,delayed release polyvinyl alcohol-povidone (PF) 1 drp EACH EYE TID 04/29/22 04/27/23 1.4 %-0.6 % eye drops in a dropperette (Refresh Classic (PF)) bupropion HCl 75 mg tablet 75 mg PO DAILY 04/30/22 04/27/23 olanzapine 2.5 mg tablet 2.5 mg PO BID 03/25/23 04/27/23 potassium chloride 20 mEq 20 meq PO DAILY 03/25/23 04/27/23 tablet,extended release(part/cryst) sucralfate 1 gram tablet 1 g PO ACHS 03/25/23 04/27/23 Skin Prep Wipes 04/27/23 04/27/23 gabapentin 100 mg capsule 100 mg PO HS 04/27/23 04/27/23 ondansetron 4 mg disintegrating 4 mg PO Q4H PRN Nausea And Vomiting 04/27/23 04/27/23 tablet Allergies Allergy/AdvReac Type Severity Reaction Status Date / Time haloperidol [From Haldol] Allergy Unknown Verified 04/07/23 01:39 Penicillins Allergy Unknown Verified 04/27/23 03:42 [facility] Past Medical History Medical History Chronic anemia Coronary artery disease [place]? in 07/2021. 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 Pericardial effusion. Deep venous thrombosis Dementia Depression Diabetic neuropathy Essential hypertension Gastroesophageal reflux disease History of GI bleed Morbid obesity due to excess calories Pericardial effusion Peripheral arterial disease Pulmonary embolism Transient ischemic attack Type 2 diabetes mellitus Diet controlled. Venous stasis dermatitis Surgical History Surgical History History of ankle surgery History of cardiac catheterization History of gastrostomy tube placement History of laparoscopic cholecystectomy (02/01/22) History of percutaneous coronary intervention Family History Family History Father Family history of malignant neoplasm Mother Family history of heart disease in male family member before age 55 Family history of cardiovascular disease Hypertension Hx of CABG Social History Social History Social History: Surrogate medical decision maker: Rachna Almaraz, spouse. Code status: Full code. Smoking status: Never smoker Second hand tobacco smoke exposure: Yes Alcohol intake: unknown Substance use: unknown Substance use type: does not use Do You Feel Safe in your Home?: Yes Lack of Transportation: No Lack of Food: Never True Current Housing: I Have Housing Concerned About Future Housing: No Difficulty Paying Gas/Electric Bills: No Difficulty Paying for Meds: No Currently Unemployed: No Education: Decline to Answer Difficulty w/ Childcare or Family Care: No Additional living arrangements comments: Resident at [facility]. Spiritual care concerns: No Exam Narrative: APPEARANCE: No appa
--- NOTE | 2023-06-13 20:23 | PC.NURSE ---
This RN spoke with Sabine from [facility] whom verbalized being able to increase lasix doasge and monitor I&Os of pt until able to follow up w pcp.
--- NOTE | 2023-06-13 21:20 | PC.NURSE ---
Transport arranged by [employer] of [employer] secretary Radha.
== END 2023-06-14 00:21 ==
PROVIDERS: Student in an Organized Health Care Education/Training Program; Emergency Provider Emergency Medicine; PCP Family Medicine
DX: R60.0 Localized edema (principal); T50.1X6A Underdosing of loop [high-ceiling] diuretics, initial encounter; Z91.128 Patient's intentional underdosing of medication regimen for other reason; Z72.4 Inappropriate diet and eating habits; I25.10 Atherosclerotic heart disease of native coronary artery without angina pectoris; F03.90 Unspecified dementia, unspecified severity, without behavioral disturbance, psychotic disturbance, mood disturbance, and anxiety; E11.40 Type 2 diabetes mellitus with diabetic neuropathy, unspecified; E11.51 Type 2 diabetes mellitus with diabetic peripheral angiopathy without gangrene; I73.9 Peripheral vascular disease, unspecified; I50.20 Unspecified systolic (congestive) heart failure; I11.0 Hypertensive heart disease with heart failure; E66.01 Morbid (severe) obesity due to excess calories; Z68.35 Body mass index [BMI] 35.0-35.9, adult; D64.9 Anemia, unspecified; K21.9 Gastro-esophageal reflux disease without esophagitis; Z95.5 Presence of coronary angioplasty implant and graft; Z86.718 Personal history of other venous thrombosis and embolism; Z86.711 Personal history of pulmonary embolism; Z86.73 Personal history of transient ischemic attack (TIA), and cerebral infarction without residual deficits; Z79.82 Long term (current) use of aspirin
CPT/HCPCS: 36415; 51702; 71046; 80053; 83880; 84484; 85025; 85610; 85730; 93005; 96374; 99284; J1940

== ENCOUNTER 2025-02-20 15:28 | Inpatient (IN) | payer OTHER, MEDICAID, SELFPAY ==
--- NOTE | ~2025-02-20 | XR_ITS ---
EXAMINATION: XR chest 2V, 02/20/2025 18:35 [employer]EN[employer] HISTORY: AMS COMPARISON: No comparisons available. Technique: 2 views obtained. Findings: The lungs are clear, no effusion. No pneumothorax. Heart is normal size. Mediastinal and hilar contours are within normal limits. Bony thorax no acute abnormality. Impression: No acute cardiopulmonary abnormality. Reviewed, dictated and finalized at location P. ENGER TRAIN [employer]RAKER Impression: No acute cardiopulmonary abnormality.
--- NOTE | ~2025-02-20 | CT_ITS ---
EXAMINATION: CT abdomen pelvis wo con DATE: 02/20/2025 20:15 INDICATION: Low abdominal pain. Diarrhea. TECHNIQUE: Computed tomography (CT) of the abdomen and pelvis was performed without intravenous contrast. Automated exposure control and iterative reconstruction technique were employed. The dose-length product was 962.97 mGy-cm. COMPARISON: CT abdomen and pelvis 04/07/2023 FINDINGS: The visualized portions of the lung bases demonstrate mild atelectasis. Calcified bilateral lung nodules and calcified left hilar lymph nodes are consistent with old granulomatous disease. No pleural effusion. The heart size is normal. There are coronary artery calcifications. There are calci fications of the aortic valve. No pericardial effusion. The liver is normal. There are changes of cholecystectomy. Calcifications in the spleen are consistent with old granulomatous disease. The pancreas, adrenal glands, and left kidney are normal. There is an 8 mm hemorrhagic cyst in right kidney. There is no urolithiasis. The bladder is decompressed by a Mora catheter. There are no dilated loops of bowel. The appendix is not visualized. There are no pathologically enlarged lymph nodes. There is no free intraperitoneal fluid. There are bilateral inguinal hernias containing fat. There is severe thoracic and lumbar spondylosis. There is mild chronic anterior wedging of multiple vertebral bodies. IMPRESSION: 1. Bilateral inguinal hernias containing fat. Reviewed, dictated and finalized at location E. TABLE LOADER
[2025-02-20 15:29] VITALS: BP 113/72; PULSE 89; RESP 14; O2SAT 94
--- NOTE | 2025-02-20 15:37 | ECG_ITS ---
Test Date: 2025-02-20 15:46:55 Measurements Intervals [place] Rate: 87 P: 59 [place]: 188 QRS: 10 QRSD: 151 T: -2 QT: 409 QTc: 494 Interpretive Statements SINUS RHYTHM INTRAVENTRICULAR CONDUCTION DELAY [130+ ms QRS DURATION] old inferior mi Electronically Signed On 02-20-2025 22:54:22 SPECIAL NEEDS LIBRARIAN by Petra Owens M.D.
[2025-02-20 15:49] LABS: Hematocrit 46.5 % (42.0-52.0); Hemoglobin 15.8 g/dL (14.0-18.0); Immature Granulocyte Percent A 1.3 % (0-0.5); Lymphocytes Absolute Auto 4.09 K/mm3 (0.9-3.2); Mean Corpuscular HGB Conc 34.0 g/dl (32-36); Mean Corpuscular Hemoglobin 31.2 pg (26-34); Mean Corpuscular Volume 91.9 fl (80-100); Nucleated Red Blood Cells Absolute Auto 0.000 K/mm3 (0.0-0.012); Nucleated Red Blood Cells Perc 0.0 % (0.0-0.2); Platelet Count Result 280 k/mm3 (150-375); Red Blood Count 5.06 M/mm3 (4.6-6.20); White Blood Count 17.4 K/mm3 (4.5-10.0)
--- NOTE | 2025-02-20 15:59 | PC.NURSE ---
Pt has diffuse red rash to chest and abdomen as well as top of thighs. Robbie MARTINEZ made aware.
[2025-02-20 16:01] LABS: INR 1.1; Prothrombin Time 14.7 Seconds (11.1-14.7)
--- OUTSIDE RECORDS SUMMARY | 2025-02-20 16:01 | XMS_ITS | Encounter Summary ---
Author Organization [facility] Facility Care Team Providers Care Epic Specialist Name Role Phone Navin Brown MD Primary Care Provider [phone] Alexa Olsen LPN Unavailable [phone] Alexa Choe RN Unavailable [phone] Rhonda Long MA Unavailable [phone] Muna Dsouza RN Unavailable [phone] Ian Ulrich MD Primary Care Provider [phone] Encounter Details Date Type Department Care Team (Latest Contact Info) Description 12/18/2017 Orders Only [facility] ProviderRustam MD [address] [place] [id number] Social History Tobacco Use Types Packs/Day Years Used Date Smoking Tobacco: Never Sex and Gender Information Value Date Recorded Sex Assigned at Not on file 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 Patient is on vent and will require 20 days of Isolation. May be reviewed for Iso d/c on 07/26/22, must be off antipyretics for 24 hours, afebrile, and show improvement in O2. 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 07/30/2022 08/02/2022 10/28/2022 3:05 AM C DT Parainfluenza, droplet Comment:09/28/2022 - IP Sonia Antoine 09/19/2022 09/19/2022 09/28/2022 11:19 AM CDT Parainfluenza, contact + alireza plet Comment:09/24/2022 Patient is not immunocompromised DIANNE Antoine RN 09/19/2022 09/19/2022 09/24/2022 11:03 AM CDT COVID: Suspected 09/26/2022 09/26/2022 09/26/2022 12:27 PM CDT documented as of this encounter Care Teams Epic Specialist Relationship Specialty Start Date End Date Navin Brown MD PCP - General Family Medicine 06/23/18 11/13/23 Ian Ulrich MD [address] [place] [address] PCP - General Internal Medicine 11/14/23 Alexa Olsen LPN [address] [place] [address] [address] [place] [address] ACO Care Coding Manager 04/03/22 05/02/22 Alexa Choe RN [address] [place] [address] [place] [address] Stem Processing Machine Operator 05/31/22 06/10/22 Rhonda Long MA [address] [place] [address] [address] [place] [id number] ACO Care Coding Manager 01/23/23 01/24/23 Muna Dsouza, LEONORA [address] [place] [address] [address] [place] [id number] Stem Processing Machine Operator 05/01/23 05/01/23 documented as of this encounter
--- OUTSIDE RECORDS SUMMARY | 2025-02-20 16:01 | XMS_ITS | Clinical Summary ---
Author Organization [facility] [id number] [facility] Address [address] [place] [address] Care Team Providers Care Barrel Rifler Button Name Role Phone Ian Ulrich MD Primary Care Provider [phone] Allergies Active Allergy Reactions Criticality Noted Date Comments Haloperidol Dystonia High 03/25/2022 Restless and worsening agitations. Penicillins Nausea & Vomiting Low 04/17/2019 As a child Medications acetaminophen (TYLENOL) 325 mg tablet Take 2 tablets (650 mg total) by mouth every 6 (six) hours as needed for pain 240 tablet 1 07/28/19 20 Active aspirin 81 mg chewable tablet Administer per tube 1 tablet (81 mg total) daily 30 tablet 11 03/30/20 22 Active Additional Information Patient taking differently:81 mgoral Every morning, Indications: Myocardial Reinfarction Prevention, prevention of thrombosis, Informant: Intermediate Care Facility, Reported on 12/25/2024 atorvastatin (LIPITOR) 80 mg tablet Administer per tube 1 tablet (80 mg total) daily 30 tablet 11 03/30/20 22 Active Additional Information Patient taking differently:80 mgoral Nightly, Indications: hyperlipidemia, Informant: Intermediate Care Facility, Reported on 12/25/2024 venlafaxine (EFFEXOR) 75 mg tablet Administer per tube 1 tablet (75 mg total) 2 (two) times a day before breakfast and dinner 60 tablet 03/30/20 22 Active Additional Information Patient taking differently:75 mgoral2 times daily before meals (bkfst, dinner),Indications: major depressive disorder, Informant: [facility], Reported on 12/25/2024 polyvinyl alcohol-povidone (REFRESH CLASSIC) 1.4-0.6 % dropperette Administer 1 drop into both eyes 3 (three) times a day 50 each 03/30/20 22 Active Additional Information Patient taking differently:1 drop each eye 3 times daily,Indications: Dry Eye, Informant: Intermediate Care Facility, Reported on 12/25/2024 polyethylene glycol (MIRALAX) 17 gram packet Take 1 packet (17 g total) by mouth daily as needed for constipation 30 packet 03/30/20 22 Active potassium chloride ER 20 mEq CR tabletIndications: supplement Take 1 tablet (20 mEq total) by mouth every morning 09/06/[address] (NexIUM) 40 mg granule packet for oral suspensionIndicati ons:Stress Ulcer Prophylaxis Administer 40 mg per feeding tube 2 (two) times a day before breakfast and dinner 60 each 11 10/11/19 23 Active HYDROcodone-acetam inophen (NORCO) 5-325 mg per tablet Take 1 tablet by mouth every 6 (six) hours as needed for pain 01/01/20 23 Active sucralfate (CARAFATE) 1 gram tabletIndications: gastroesophageal reflux disease Take 1 tablet (1 g total) by mouth 4 (four) times a day (with meals and nightly) 12/31/19 23 Active tamsulosin (FLOMAX) 0.4 mg extended release capsule Administer 1 capsule (0.4 mg total) per feeding tube nightly 90 capsule 3 04/12/19 24 Active finasteride (PROSCAR) 5 mg tablet Take 1 tablet (5 mg total) by mouth every morning 90 tablet 3 04/12/19 24 Active furosemide (LASIX) 40 mg tablet Take 1 tablet (40 mg total) by mouth daily 06/08/19 24 Active gabapentin (NEURONTIN) 100 mg capsule Take 1 capsule (100 mg total) by mouth nightly 04/05/19 24 Active methIMAzole (TAPAZOLE) 5 mg tablet Take 1 tablet (5 mg total) by mouth daily 05/29/19 24 Active metoprolol XL (TOPROL-XL) 25 mg extended release tablet Take 1 tablet (25 mg total) by mouth daily 04/30/19 24 Active ondansetron ODT (ZOFRAN-ODT) 4 mg disintegrating tablet 05/05/19 24 Active sacubitriL-valsart an (Entresto) 24-26 mg tabletIndications: chronic heart failure Take 1 tablet by mouth 2 (two) times a day 60 tablet 11 06/17/19 24 Active doxycycline hyclate 100 mg capsule Take 1 tablet/capsule (100 mg total) by mouth daily 08/02/19 24 Active OLANZapine (ZyPREXA) 7.5 mg tablet Take 1 tablet (7.5 mg total) by mouth nightly 11/29/19 24 Active ferrous sulfate 325 mg (65 mg of elemental iron) tabletIndications: Iron Deficiency Anemia Take 1 tablet (325 mg total) by mouth daily with breakfast Active Active Problems Problem Noted Date Diagnosed Date Ischemic cardiomyopathy 12/25/2024 Gastrointestinal hemorrhage with hematemesis 10/2022 Bladder stone 09/18/2022 Encephalopathy 07/13/2022 Assessment & Plan (07/20/2022 10:14 AM CDT): Has been off sedation since 07/12. -07/19: patient more conversational although not oriented -head CT from 07/13 only showing chronic lacunar infarcts -now off all enteral sedative/opioids -place patient in chair position with lights on and stimulation during the day -continue delirium precautions -return to SNF/discharge today Pulmonary emboli 07/11/2022 Assessment & Plan (07/19/2022 12:22 PM CDT): 07/10 CT showed small apical and anterior segment RUL pulm artery embolism - continue eliquis Goals of care, counseling/discussion 07/09/2022 Assessment & Plan (07/20/2022 10:13 AM CDT): Hospice consulted, would like to talk to them about options. Not ready to go hospice yet, would like to talk to her family and advent. Hospice will follow up. -Patient improvement, extubated 07/17. Discussions with Rachna 07/16 led to DNI if extubate we will not reintubate if necessary with discussions about comfort care if he declines once extubated -Rachna does not want patient to have tracheostomy -patient is DNR/DNI; will relay information to SNF unsure if this is new for him -extubated 07/17 COVID-19 07/07/2022 Assessment & Plan (07/20/2022 10:14 AM CDT): 07/05 COVID + -extubated 07/17 -family refused remdesivir -s/p dex -IP contacted on 07/18, and IP states will re evaluate on 07/26 -assessing discharge to SNF today Gastrostomy tube dysfunction 07/06/2022 Assessment & Plan (07/20/2022 10:13 AM CDT): 07/[address] A/P: G-tube with balloon in duodenum and possible pneumatosis of stomach -OGT placed at OSH with intubation; immediate return of 1.3L coffee ground appearing gastric content -ACCS consulted in ED; G-tube balloon deflated and retracted ~3 cm and re- inflated given scan findings of balloon obstructing the pylorus -ACCS previously concerned for ischemia of stomach with initial recs for NPO a venting G-tube and OG tube to LIS while intubated; restarted TF's and now tolerating well -CT AP with gtube balloon at gastric antrum/peripyloric region, pulled back to 4cm by ACCS; now signed off -now tolerating TF's at goal; bowel movements increased; regimen is PRN -will continue to monitor Shock 07/06/2022 Assessment & Plan (07/20/2022 10:44 AM CDT): Resolved. Likely septic in setting of viral infection, suspect hypovolemic component, less likely cardiogenic. Arrived to ED with tachycardia, hypotension, intubated and sedated. Received 3L LR, started on Norepinephrine gtt at 0.05mcg/kg/min, now off pressors -urine with wbc >50, s/p change of OSH romano catheter -RVP COVID-19 positive, oxyhemoglobin 73%, family refused remdesivir, dex stopped as not thought to be contribution to overall illness -Abx: meropenem (07/05-07/12), switch vancomycin (07/05-07/10) to Linezolid (07/10- 07/12). S/p micafungin; completed 7 days abx -07/06 TA PNA PCR and Cx positive for MRSA -07/05 blood cultures x 2 NG final Acute hypoxemic respiratory failure 07/06/2022 Assessment & Plan (07/20/2022 10:43 AM CDT): intubated at OSH in concern for aspiration pneumonia, arrived to [facility] ED sedated with Versed 4mg/hr and fentanyl 25 mcg/hr. Notable new small apical/anterior right upper lobe PE from 07/10 CT PE -extubated (07/17) -OOBTC or bed in chair position -d/c prn bronchodilators -continue eliquis for PE -07/10 LED dopplers negative Anxiety and depression 07/06/2022 Assessment & Plan (07/20/2022 10:26 AM CDT): -home meds include Venlafaxine 75 mg BID, Buspar 5 mg BID, Wellbutrin 75 mg BID and Desipramine 10 mg daily (new Rx 06/25/22) -now off IV sedation, discontinue per tube ativan -avoid Desipramine (tricyclic antidepressant) in setting of prolonged qTc 638; now improved -continue home Buspar, Wellbutrin and Venlafaxine Coffee ground emesis 07/05/2022 Assessment & Plan (07/16/2022 10:33 AM CDT): Resolved Diff Dx: suspect gastric outlet obstruction from G-tube balloon in the pylorus (per OSH CT read); possible gastric ulcers or gastritis while on Plavix and ASA in setting of history of GERD -GI consulted in ED, Hgb stable no intervention planned -continue BID PPI -hold home Plavix -continue DOAC -TFs at goal Malnutrition 04/20/2022 Assessment & Plan (04/20/2022 12:14 AM TELETYPESETTER MONITOR): Recent admission for poor po intake of unclear etiology. S/p G tube placement. Here s/p G tube falling out vs being pulled out. S/p replacement in IR. -resume home TF Tachycardia 04/19/2022 Assessment & Plan (04/20/2022 12:35 AM TELETYPESETTER MONITOR): Likely 2/2 missed metoprolol I/s/o pulled out G tube. Possibly component of hypovolemia as well due to lack of TF while G tube displaced. Tachycardia resolved with home metop. Euvolemic to hypovolemic on exam with dry mucous membrances, no LE edema, no sacral edema, no JVD. CT-PE neg for PE however notes small pleural effusion. He is on RA and lying flat without respiratory distress. proBNP 2563. Pt likely has chronic HFrEF 2/2 ICM however clinically no c/f acute decompensated HFrEF. Last TTE 07/2021 I/s/o NSTEMI noted EF 50% and multiple MWAs (of note poor image quality as well). -given no clinical c/f acute decompensated heart failure, ok to continue home metop and no indication for diuresis. -of note BP did not tolerate losartan during previous admission thus would not likely tolerate increasing GDMT -pt would benefit from repeat TTE as OP in the next few months however given no c/f acute decompensated heart failure, no indication for admission for urgent TTE -no inpatient workup for tachycardia needed Poor oral hygiene 03/24/2022 Assessment & Plan (03/26/2022 12:11 PM TELETYPESETTER MONITOR): Noted to have thickened dry oral crusts thought to be bloody, seen by ENT no evidence of tongue laceration per ENT. Cont chlorhex swap TID. Keep mouth moist. Altered mental status 03/19/2022 Assessment & Plan (03/30/2022 12:37 PM TELETYPESETTER MONITOR): Baseline mental status according to AOx2 but now AOx0 with some agitation. Neurology was consulted they recommended infection versus metabolic encephalopathy. ? Mentation is slightly improved with starting TPN and correcting electrolytes. Also it was noted that he had severe restlessness and worsening agitation with antipsychotics(Haldol on Seroquel). Psychiatry was consulted who recommended to discontinue antipsychotics and try low-dose Ativan if absolutely needed.. CXR w/p pna, bcx NGTD. UA with 3+ LE, no nitrites, inc WBC a RBC, yeast. CTH negative. Patient received ceftriaxone empirically on 03/18- 03/26 - Thiamin, folate and IVF - D/Milo Seroquel - can try benzos as needed for agitation - TF started 03/29 and now on full feeds reported bout of confusion started since his stent this summer and he never completely returned to baseline. Prior to this, he was a completely independent person. 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 Severe malnutrition 03/11/2022 Assessment & Plan (07/20/2022 10:45 AM CDT): Hx of FTT and malnutrition s/p cholecystectomy 12/2021 with 70 pound weight loss over 6 month period -PEG tube placed in 03/29/22 c/b recent removal and replacement of 16 fr g-tube by IR 04/16 and again 04/19/22 due to self removal. -TF's at goal -bowel regimen prn -RD following -per was taking PO prior to admission; will consult ACCOUNTANT AUDITOR for evaluation today, will follow up with ACCOUNTANT AUDITOR at [facility] for additional recs Assessment & Plan (03/20/2022 8:45 AM TELETYPESETTER MONITOR): See above Nausea and vomiting 03/10/2022 Assessment & Plan (03/29/2022 1:18 PM TELETYPESETTER MONITOR): Patient presents with persistent N/V, poor po intake, reported weight loss in setting of subtotal lap yao at OSH ~6 weeks ago, workup here including MRCP did not show clear cause. Bedside eval with ACCOUNTANT AUDITOR notable for pt avoiding solid foods and preferring soft foods and liquids which he drinks large amounts of quickly. Patient started to refuse and declined any oral intake including liquids. On discussion with family they elected to go for PEG tube. -No N/V since admission -TPN 03/21 - 03/29 - PEG tube placed 03/29; gtube feeds to start 03/29 - Zofran PRN for nausea Assessment & Plan (03/10/2022 8:31 AM TELETYPESETTER MONITOR): Patient presents with persistent N/V, poor po intake, reported weight loss in setting of subtotal lap yao at OSH ~6 weeks ago, though appetite issues predate this. Work-up consistent with dehydration. CT A/P showed no significant change in pericholecystic fat stranding and slightly increased CBD enhancement. However, patient has no abdominal pain with normal LFTs, so significant abdominal infection (cholecystitis, cholangitis) seems less likely. -General surgery c/s in ED, following -Trend LFTs; repeat CMP with CBC this AM -IVF -PRN zofran; consider scheduling med pending symptoms -Obtain weight. RD c/s and calorie count; advance diet to regular (from CC) if needed -Consider GI c/s inpatient (has outpatient appointment 04/06) if needed Hypokalemia 03/10/2022 Assessment & Plan (07/06/2022 2:48 AM CDT): -replete to maintain K >4 Assessment & Plan (03/11/2022 1:59 PM TELETYPESETTER MONITOR): Replete PRN Assessment & Plan (03/10/2022 8:31 AM TELETYPESETTER MONITOR): -Trend level -Replete PRN Type 2 diabetes mellitus, wi th long-term current use of insulin 03/10/2022 Assessment & Plan (07/20/2022 10:12 AM CDT): Chart hx of IDDM, previously on Lantus 5 units QHS and trajenta, has been off both since March 2022 -can stop blood glucose assessments and SSI they have been normal on TF at goal -most recent hgb A1c 5.0% on 03/09/22, hgb A1c 5.5 % on 07/06 Assessment & Plan (03/29/2022 1:20 PM TELETYPESETTER MONITOR): Hold home Lantus 5U QHS and home trajenta for hypoglycemia in the setting of poor intake. Assessment & Plan (03/10/2022 8:34 AM TELETYPESETTER MONITOR): -Continue home Tradjenta -Hold home Lantus 5U QHS for now -SSI Coronary artery disease 03/10/2022 Assessment & Plan (07/20/2022 10:25 AM CDT): CAD s/p proximal to mid RCA stent at OSH, unsuccessful and c/b dissection, transferred to [facility] for salvage PCI s/p shockwave lithotripsy with PCI of RCA 08/07/21, on ASA/plavix at home -holding plavix; can follow up with cardiology for resuming this although in chart review it was held 12/2021 and unsure if it was resumed after that admission. As patient is nearly a year from PCI continue to hold and follow up with cardiology for recommendations -continue ASA/statin Assessment & Plan (04/20/2022 12:13 AM TELETYPESETTER MONITOR): S/p NSTEMI 07/2021 s/p attempted PCI to mid RCA at OSH c/b coronary artery dissection and unsuccessful PCI. He was transferred to [facility] for complex PCI. He underwent shockwave lithotripsy and PCI to RCA. -cont ASA, statin, plavix, metop Assessment & Plan (03/29/2022 1:23 PM TELETYPESETTER MONITOR): He had NSTEMI at OSH on 08/07/21 in the setting of diffuse LAD disease, RHC with proximal and mid lesions. He had a stent placed in proximal to mid RCA at the OSH but was unsuccessful and had a complication of dissection and was transferred to [facility] for salvage PCI s/p shockwave lithotripsy with PCI of RCA. - Continue asa, plavix, statin, Plavix on hold since 03/18 for G-tube placement, restarted 03/29. Assessment & Plan (03/10/2022 8:46 AM TELETYPESETTER MONITOR): Per notes, stents 07/2021 -Continue asa, plavix Dementia 03/10/2022 Assessment & Plan (04/20/2022 12:13 AM TELETYPESETTER MONITOR): H/o vascular dementia. -Cont venlafaxine, bupropion, ramelton, and buspar Assessment & Plan (03/21/2022 9:42 AM TELETYPESETTER MONITOR): Chart history of vascular dementia. Seems to wax/wane/sundown at baseline. - Delirium precautions Assessment & Plan (03/10/2022 8:49 AM TELETYPESETTER MONITOR): Chart hx vascular dementia. Seems to wax/wane/sundown at baseline. Currently A&Ox2-3 -PRN nightly quetiapine 12.5 for agitation (required olanazpine in ED) -Delirium precautions Bladder stones 11/15/2021 Chest pain 08/07/2021 Non-ST elevation myocardial infarction (NSTEMI) 08/07/2021 Prolonged Q-T interval on ECG 08/07/2021 Assessment & Plan (07/17/2022 11:54 AM CDT): Now resolved -initial ECG in ED with qTc 620, repeat ECG in ICU with qTc 638, suspect 2/2 tricyclic antidepressant -prior ECG 03/26/22 with qTc 397 -hold Desipramine -d/c daily ECG NSTEMI (non-ST elevated myocardial infarction) 0 08/07/2021 Sensorineural hearing loss (SNHL) of both ears 0 07/08/2020 Medicare annual wellness visit, subsequent 04/30 Other male erectile dysfunction 09/05/2018 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 MILA (obstructive sleep apnea) 07/18/2017 BMI 45.0-49.9, adult ([facility]) 03/18/2017 Recurrent major depressive d isorder, in full remission ([facility]) 03/18/2017 Overview (11/03/2019): stable Assessment & Plan (03/11/2022 1:54 PM TELETYPESETTER MONITOR): Continue home wellbutrin, venlafaxine Assessment & Plan (03/10/2022 8:32 AM TELETYPESETTER MONITOR): -Continue home wellbutrin, venlafaxine Peripheral polyneuropathy 03/18/2017 Overview (11/03/2019): stable on neurontin Other chronic pain 03/18/2017 Assessment & Plan (03/30/2022 12:39 PM TELETYPESETTER MONITOR): At home, takes gabapentin, flexeril, oxycodone 5mg BID PRN. - Holding scheduled gabapentin, oxycodone and Flexeril given altered mentation. Assessment & Plan (03/10/2022 8:46 AM TELETYPESETTER MONITOR): -Continue home gabapentin, flexeril, oxycodone 5mg BID PRN Osteoarthritis of lumbar spine 03/18/2017 Overview (11/03/2019): sees pain mgmt Narcotic dependency, continuous 03/18/2017 Overview (11/03/2019): pain mgmt At high risk for falls 03/18/2017 Essential (primary) hypertension 02/22/2015 Overview (11/03/2019): controlled controlled Assessment & Plan (03/29/2022 1:30 PM TELETYPESETTER MONITOR): Holding home losartan in view of soft blood pressures and poor oral intake. Metoprolol restarted 03/29. Assessment & Plan (03/10/2022 8:31 AM TELETYPESETTER MONITOR): -Continue home losartan, metoprolol Sleep disorder 02/22/2015 Recurrent falls 11/11/2014 Morbid obesity 11/10/2014 Overview (11/03/2019): better per pt Venous stasis dermatitis 11/10/2014 Hyperlipidemia 10/09/2012 Assessment & Plan (03/11/2022 1:59 PM TELETYPESETTER MONITOR): Continue home atorvastatin Assessment & Plan (03/10/2022 8:31 AM TELETYPESETTER MONITOR): -Continue home atorvastatin Major depressive disorder, s tia episode, severe with psychotic features 05/01/2012 Resolved Problems Problem Noted Date Diagnosed Date Resolved Date Hypernatremia 03/23/2022 03/26/2022 Assessment & Plan (03/24/2022 10:25 AM TELETYPESETTER MONITOR): Continue half saline 125 cc/hour continue to trend electrolytes. - NA cont to trend down. Laceration 11/03/2019 11/03/2019 Fall injury while running 11/03/2019 Cellulitis of great toe 04/30/2019 080 07/2019 Alzheimer's disease with early onset (CODE) 03/18/2017 05/05/2020 Overview (11/03/2019): mild/stable Fall 11/10/2014 09/05/2018 Wheezing 03/16/2014 09/05/2018 Notalgia 10/09/2012 09/05/2018 Encounters Date Type Department Care Team Description 02/15/[address] [address] Isha Mi MA Successful Phone Call ([facility] med adh) 12/25/2024 1:00 PM CDT Office Visit [facility] [address] [place] [address] Joaquin Enriquez MD NSTEMI (non-ST elevated myocardial infarction) (HCC) (Primary Dx); Ischemic cardiomyopathy 12/15/[address] [address] Jen Weinberg Chart Review (Med Adherence ([facility])) 12/11/2024 Results Follow-Up [facility] Family Medicine at [address] [place] [address] Navin Brown MD CARDIOLOGY DOCUMENT SCAN from Last 3 Months Immunizations Immunization Administration Dates Next Due DTaP 04/17/2019 Influenza, Unspecified 04/28/2021(Deferr ed: Patient Refused),12/30/2018 Moderna SARS-CoV-2 Monovalen t Vaccination (12+ YRS) 05/11/2021 Pneumococcal Conjugate PCV 13 04/30/2019 Surgical History Surgery Date Site/Laterality Comments APPENDECTOMY TONSILLECTOMY MANDIBLE SURGERY IR G TUBE PLACEMENT PERCUTANEOUS 03/28/2022 N/A CHANGE G TUBE 04/16/2022 N/A CHANGE G TUBE 04/19/2022 N/A CHOLECYSTECTOMY 12/30/2021 - 01/29/2022 ENTERIC TUBE INJECTION 09/20/2022 N/A UPPER GASTROINTESTINAL ENDOSCOPY 10/08/2022 CARDIAC STENT PLACEMENT 04/01/2021 - 03/31/2022 08/07/2021, 08/11/2021 Medical History Medical History Date Comments Person feigning illness Malinger ing - (Added by TW Conv) Essential (primary) hypertension Accelerated essential hypertension - (Added by TW Conv) Uncomplicated opioid abuse (HCC) Opioid abuse, continuous - (Added by TW Conv) Other symptoms and signs inv olving emotional state Suicide risk - (Added by TW Conv) Personal history of other me ntal and behavioral disorders History of depression - (Add ed by TW Conv) Sepsis (HCC) Septicemia - (Ad ded by TW Conv) Personal history of urinary calculi History of nephrolithiasis - (Added by TW Conv) Personal history of other en docrine, nutritional and metabolic disease History of obesity - (Added by TW Conv) Personal history of diseases of skin or subcutaneous tissue History of stasis dermatitis - (Added by TW Conv) Urinary calculus Calculus Of Kid lavon And Ureter - (Added by TW Conv) Covid 04/2021 GERD (gastroesophageal reflu x disease) Hyperlipidemia Depression Sleep disorder 02/22/2015 Family History Medical History Relation Name Comments No Known Problems Brother Hypertension Daughter Family history of essential hypertension - (Added by TW Conv) No Known Problems Father No Known Problems Maternal Grandfather No Known Problems Maternal Grandmother No Known Problems Mother Hypertension Other Family history of essential hypertension - (Added by TW Conv) No Known Problems Paternal Grandfather No Known Problems Paternal Grandmother Anesthesia problems Neg Hx Relation Name Status Comments Brother Alive Daughter Father Maternal Grandfather Maternal Grandmother Mother Other Paternal Grandfather Paternal Grandmother Social History Tobacco Use Types Packs/Day Years Used Date Smoking Tobacco: Never Smokeless Tobacco: Never Tobacco Cessation:Counseling Given: Not Answered Alcohol Use Standard Drinks/Week Comments Not Currently 0 (1 standard drink = 0.6 oz pur e alcohol) Social Connection and Isolation Panel Answer Date Recorded In a typical week, how many times do you talk on the phone with family, friends, or neighbors? More than three times a week 10/08/2022 How often do you get togethe r with friends or relatives? More than three times a week 10/08/2022 How often do you attend chur ch or bahai services? Never 10/08/2022 Do you belong to any clubs o r organizations such as advent groups, unions, fraternal or athletic groups, or school groups? No 10/08/2022 How often do you attend meet ings of the clubs or organizations you belong to? Never 10/08/2022 Are you , , di vorced, , never , or living with a partner? 10/08/2022 AUDIT-C Answer Date Recorded Q1: How often do you have a drink containing alcohol? Never 2023 Q2: How many drinks containi ng alcohol do you have on a typical day when you are drinking? Patient does not drink Q3: How often do you have si x or more drinks on one occasion? Never 2023 Overall Financial Resource Strain (CARDIA) Answe r Date Recorded How hard is it for you to pa y for the very basics like food, housing, medical care, and heating? Not hard at all 10/08/2022 PHQ-2 Answer Date Recorded PHQ-2 Total Score 1 08/25/2021 Hunger Vital Sign Answer Date Recorded Within the past 12 months, y ou worried that your food would run out before you got the money to buy more. Never true 10/09/19 23 Within the past 12 months, t he food you bought just didn't last and you didn't have money to get more. Never true 10/08/2022 PRAPARE - Transportation Answer Date Re corded In the past 12 months, has l ack of transportation kept you from medical appointments or from getting medications? No 09/29 In the past 12 months, has l ack of transportation kept you from meetings, work, or from getting things needed for daily living? No 10/08/2022 Housing Stability Vital Sign Answer Kenny e Recorded In the last 12 months, was t here a time when you were not able to pay the mortgage or rent on time? No 10/08/2022 In the last 12 months, how many places have you lived? 1 10/08/2022 In the last 12 months, was t here a time when you did not have a steady place to sleep or slept in a jail (including now)? No 10/08/2022 Personal Safety Answer Date Recorded Have you ever been in or are you currently in a harmful physical or emotional relationship or is someone making you feel afraid or unsafe? 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 Gender Identity Not on file Sexual Orientation Not on file Last Filed Vital Signs Vital Sign Reading Time Taken Comments Blood Pressure 126/74 12/25/2024 1:14 PM CDT Pulse 99 12/25/2024 1:14 PM CDT Temperature 35.8 C (96.4 F) 2023 11:00 AM TELETYPESETTER MONITOR Respiratory Rate 11 2023 11:40 AM TELETYPESETTER MONITOR Oxygen Saturation 97% 12/25/2024 1:14 PM CDT Inhaled Oxygen Concentration - - Weight 101 kg (222 lb 9.6 oz) 12/25/2024 1:14 PM CDT Height 172.7 cm (5' 8) 12/25/2024 1:14 PM CDT Body Mass Index 33.85 12/25/2024 1:14 PM CDT Plan of Treatment Health Maintenance Due Date Last Done Comments Albumin Creatinine Ratio, Urine 1950 Hepatitis C Screening 1950 Dilated Eye Exam 1948 Hepatitis B Screening 1966 Zoster Vaccine (1 of 2) 1998 Pneumococcal vaccine 65+ (2 of 2 - PPSV23, PCV20, or PCV21) 06/25/2019 04/30/2019 Foot Exam 05/05/2021 05/05/2020, 04/30/2019 Well Visit 65+ 05/05/2021 05/05/2020, 04/30/2019 Depression Screening 08/07/2022 08/07/2021, 05/05/2020, 04/30/2019 Lipid Panel 03/09/2023 03/09/2022, 050 11/2021, 03/16/2014 Hemoglobin A1C 03/19/2023 09/17/2022, 040 09/2022, 07/06/2022, Additional history exists Fall Risk Assessment 2024 2023, 05/05/2020, 04/30/2019 eGFR 07/31/2024 08/01/2023, 12/31, 10/11/2022, Additional history exists Covid-19 Vaccine (2 - 2024-2 6 season) 2024 05/11/2021 Influenza Vaccine (#1) 2024 12/30/2018 DTaP/Tdap/Td Vaccine (2 - Tdap) 04/17/2029 0 Medical Devices Implanted Type Area Umbrella Tipper Machine Device Identifier Shelf Expiration Date Model / Serial / Lot Darby Vascular Device Clsr Perclose Prostyle Sut-Mediatd Closure-Repai r Sys 38501-71 - [id number] - [id number] Implanted:Qty : 1 on 08/11/2021 by Huy Betancourt MD at [facility] Other - see comments Left: Femoral [employer]by V[employer] 06/30/2023 [id number] / [id number] Description:Perclose [employer] Stent Coronary De Rx Cocr Ors Msn 3.0x40mm [id number] - [id number] - [id number] Implanted:Qty : 1 on 08/11/2021 by Huy Betancourt MD at [facility] Stent Right: Coronary [employer] 11/17/2022 [id number] / [id number] / [id number] Description:RCA Medtronic Inc Resolute Iftikhar 3mm 2.1-2.7fr 8mm 140cm Rapid Exchange Radiopaque 1 [id number] - [id number] - [id number] Implanted:Qty : 1 on 08/11/2021 by Huy Betancourt MD at [facility] Stent Right: Coronary Medtronic Inc 12/21/2021 [id number] / [id number] / [id number] Description:RCA Med[employer]onic Inc Resolute Dexter 3mm 2.1-2.7fr 12mm 140cm Rapid Exchange Radiopaque [id number] - [id number] - [id number] Implanted:Qty : 1 on 08/11/2021 by Huy Betancourt MD at [facility] Stent Right: Coronary Medtronic Inc 06/04/2024 [id number] / [id number] / [id number] Description:RCA Med[employer]onic Inc Resolute Dexter 3mm 2.1-2.7fr 30mm 140cm Rapid Exchange Radiopaque [id number] - [id number] Implanted:Qty : 1 on 08/07/2021 by Mario Sheth MD at [facility] Med[employer]onic Inc 05/22/2024 [id number] / / [id number] Procedures Procedure Name Priority Date/Time Associated Diagnosis Comments BASIC METABOLIC PANEL Routine 08/01/2023 HEMOGLOBIN A1C STAT 09/17/2022 10:05 PM CDT LIPID PANEL STAT 03/09/2022 9:50 PM TELETYPESETTER MONITOR from Last 3 Months or Most Recently Relevant to Health Maintenance Results * (ABNORMAL) Basic metabolic panel (08/01/2023) SCRIBED Sodium 143 136 - 145 mmol/L EXTERNAL LAB SCRIBED Potassium 4.0 3.4 - 4.5 mmol/L EXTERNAL LAB SCRIBED Chloride 108(A) 98 - 107 mmol/L EXTERNAL LAB SCRIBED Carbon Dioxide 28.0 20.0 - 31.0 mmol/L EXTERNAL LAB SCRIBED Anion Gap 11.0 5.5 - 16.0 mmol/L EXTERNAL LAB SCRIBED Urea Nitrogen (BUN) 39(A) 10 - 22 mg/dl EXTERNAL LAB SCRIBED Creatinine 1.2 0.7 - 1.3 mg/dl EXTERNAL LAB SCRIBED Glucose 124(A) 74 - 106 mg/dl EXTERNAL LAB SCRIBED Calcium 8.7 8.3 - 10.6 mg/dl EXTERNAL LAB SCRIBED eGFR 62.8866(A) 90 - . EXTERNAL LAB Blood us Historical Provider LAB BLOOD ORDERABLES Lisa nunez Result EXTERNAL LAB * Hemoglobin A1c (09/17/2022 10:05 PM CDT) Hgb A1C 5.4 4.0 - 5.6 % [facility] Estimated Average Glucose 108 mg/dL [facility] Comment: The ADA recommends reporting an estimated Average Glucose (eAG) with all Hemoglobin A1c results using the equation derived from a study of 507 normal and diabetic adults. Minority populations were underrepresented and children were not included. (Diabetes Care 2020; 43(S1): S66-S76). The eAG is not equivalent to a fasting glucose. Blood 09/17/2022 10:0 5 PM CDT 09/17/2022 10:19 PM CDT [facility]arrative [facility] - 09/18/2022 7:32 PM CDT Reflex us Bryce Desir MD LAB BLOOD ORDERABLES Lisa nunez Result [facility] Department [place] [address] * (ABNORMAL) Lipid panel (03/09/2022 9:50 PM TELETYPESETTER MONITOR) Cholesterol 177 30 - 199 mg/dL [facility] Comment: Interpretive Data Ages < or = 19 years Acceptable: <170 mg/dL Borderline high: 170-199 mg/dL High: >or= 200 mg/dL Ages > or = 20 years Desirable: <200 mg/dL Borderline high: 200-239 mg/dL High: >or= 240 mg/dL Literature References: 1. Expert Panel on Integrated Guidelines for Cardiovascular Health and Risk Reduction in Children and Adolescents. Pediatrics 2011;128:S213 2. NCEP Expert Panel. Circulation 2004;110:227 Current Interpretive Data was last revised on 2017. Triglycerides 203(H) <=149 mg/dL [facility] Comment: Interpretive Data Ages < or = 9 years Acceptable: <75 mg/dL Borderline high: 75-99 mg/dL High: >or= 100 mg/dL Ages 10 to 20 years Acceptable: <90 mg/dL Borderline high: 90-129 mg/dL High: >or= 130 mg/dL Ages > or = 20 years Desirable: <150 mg/dL Borderline high: 150-199 mg/dL High: 200-499 mg/dL Very high: >or= 499 mg/dL Literature References: 1. Expert Panel on Integrated Guidelines for Cardiovascular Health and Risk Reduction in Children and Adolescents. Pediatrics 2011;128:S213 2. NCEP Expert Panel. Circulation 2004;110:227 Current Interpretive Data was last revised on 2017. HDL 55 >=40 mg/dL [facility] Comment: Interpretive Data Ages < or = 19 years Acceptable: >45 mg/dL Borderline low: 40-45 mg/dL Low: <40 mg/dL Ages > or = 20 years Desirable: >or= 60 mg/dL Low: <40 mg/dL Literature References: 1. Expert Panel on Integrated Guidelines for Cardiovascular Health and Risk Reduction in Children and Adolescents. Pediatrics 2011;128:S213 2. NCEP Expert Panel. Circulation 2004;110:227 Current Interpretive Data was last revised on 2017. LDL, calculated 81 <=129 mg/dL [facility] Comment: Interpretive Data Ages < or = 19 years Acceptable: <110 mg/dL Borderline high: 110-129 mg/dL High: >or= 130 mg/dL Ages > or = 20 years Optimal: <100 mg/dL Near optimal: 100-129 mg/dL Borderline high: 130-159 mg/dL High: >160 mg/dL Literature References: 1. Expert Panel on Integrated Guidelines for Cardiovascular Health and Risk Reduction in Children and Adolescents. Pediatrics 2011;128:S213 2. NCEP Expert Panel. Circulation 2004;110:227 Current Interpretive Data was last revised on 2017. Non-HDL Cholesterol 122 mg/dL [facility] Comment: Interpretive Data Ages < or = 19 years Acceptable: <120 mg/dL Borderline high: 120-144 mg/dL High: >145 mg/dL Ages > or = 20 years When triglycerides are >200 mg/dL, Non-HDL cholesterol is a secondary target of therapy with treatment goals that are 30 mg/dL greater than the LDL cholesterol target. Literature References: 1. Expert Panel on Integrated Guidelines for Cardiovascular Health and Risk Reduction in Children and Adolescents. Pediatrics 2011;128:S213 2. NCEP Expert Panel. Circulation 2004;110:227 Current Interpretive Data was last revised on 2017. Chol/HDL ratio 3 [facility] Blood 03/09/2022 9:50 PM TELETYPESETTER MONITOR 03/09/2022 10:15 PM TELETYPESETTER MONITOR Narrative [facility] - 03/10/2022 4:45 PM TELETYPESETTER MONITOR Add on us Lloyd Holland MD LAB BLOOD ORDERABLES Fi nal Result [facility] Department [place] [address] from Last 3 Months or Most Recently Relevant to Health Maintenance Insurance [address] [place], [place] [id number] [place] [address] Member Subscriber Plan / Payer (Ef fective 2021-Present) Name:Juan Pablo Almaraz Relation to Subscriber:Self Name:Juan Pablo Almaraz Payer ID:[id number] (NAIC) Type:MEDICARE RISK OTHER Address: [address] MEDICARE [facility] [employer] Advance Directives For more information, please contact: [phone] Documents on File Type Date Recorded 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 ADVANCE DIRECTIVE 10/03/2022 11:43 PM POLST ADVANCE DIRECTIVE 06/05/2022 2:46 PM DNR ADVANCE DIRECTIVE 06/05/2022 2:46 PM Rachna Almaraz Power of Application Programmer Analyst-Medical ADVANCE DIRECTIVE 08/08/2021 9:02 AM CPR ADVANCE DIRECTIVE 01/25/2012 12:00 AM DNR ADVANCE DIRECTIVE 01/25/2012 12:00 AM POW ER OF INSPECTOR CONVEYOR LINE FINANCIAL/MEDICAL * Full Code (Latest Code Status on File) Date Activated Date Inactivated Comments 10/08/2022 12:51 PM 10/11/2022 7:40 PM * LIMITED - No CPR Date Activated Date Inactivated Comments 10/06/2022 10:33 PM 10/08/2022 12:51 PM Question Answer Comments Provide aggressive medical m anagement before a full cardiopulmonary arrest occurs. Use antibiotics, IV Fluids, and medical treatment unless specifically selected below: No intubation * Full Code Date Activated Date Inactivated Comments 10/06/2022 8:55 PM 10/06/2022 10:33 PM * LIMITED - No CPR Date Activated Date Inactivated Comments 09/17/2022 9:41 PM 10/01/2022 10:06 PM Question Answer Comments Provide aggressive medical m anagement before a full cardiopulmonary arrest occurs. Use antibiotics, IV Fluids, and medical treatment unless specifically selected below: No intubationNo non-invasive ventilationNo cardioversionNo vasopressors * LIMITED - No CPR Date Activated Date Inactivated Comments 07/16/2022 3:21 PM 07/20/2022 7:19 PM Question Answer Comments Provide aggressive medical m anagement before a full cardiopulmonary arrest occurs. Use antibiotics, IV Fluids, and medical treatment unless specifically selected below: No intubation Healthcare Agents on File Name Relationship Healthcare Agent Allyssapa erick Communication Rachna Almaraz Spouse Health Care Agent Care Teams Barrel Rifler Button Relationship Specialty Start Date End Date Ian Ulrich MD [address] [place] [address] PCP - General Internal Medicine 11/14/23
--- OUTSIDE RECORDS SUMMARY | 2025-02-20 16:01 | XMS_ITS | Encounter Summary ---
Author Organization [facility] Facility Care Team Providers Care Life Enrichment Director Name Role Phone Navin Brown MD Primary Care Provider [phone] Alexa Olsen LPN Unavailable [phone] Alexa Choe RN Unavailable [phone] Rhonda Long MA Unavailable [phone] Muna Dsouza RN Unavailable [phone] Ian Ulrich MD Primary Care Provider [phone] Encounter Details Date Type Department Care Team (Latest Contact Info) Description 07/23/2017 Orders Only [facility] CLINCONV ProviderRustam MD [address] [place] [address] Social History Tobacco Use Types Packs/Day Years Used Date Smoking Tobacco: Never Sex and Gender Information Value Date Recorded Sex Assigned at Not on file Legal Sex Male 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 Gender Identity Not on file Sexual Orientation Not on file documented as of this encounter Plan of Treatment Not on file documented as of this encounter Procedures Procedure Name Priority Date/Time Associated Diagnosis Comments SCAN - LABS 12/25/2017 12:00 AM CDT documented in this encounter Results * SCAN - LABS (12/25/2017 12:00 AM CDT) Narrative 12/25/2017 12:00 AM CDT Ordered by an unspecified [...] COVID: Suspected 03/09/2022 03/09/2022 03/09/2022 11:32 PM TRACTOR DRIVER TEAMSTER COVID: Suspected 07/05/2022 07/05/2022 07/05/2022 5:29 PM CDT COVID19 Comment:07/16/2022- Positive PCR, 07/05/22. Patient is on vent and will require 20 days of Isolation. May be reviewed for Iso d/c on 07/26/22, must be off antipyretics for 24 hours, afebrile, and show improvement in O2. Chanda Slater 07/05/2022 07/05/2022 07/30/2022 3:05 AM C DT MRSA 07/05/2022 09/19/2022 03/18/2023 3:05 AM TRACTOR DRIVER TEAMSTER COVID: Recovered Comment:Added based on recent COVID infection. 07/30/2022 08/02/2022 10/28/2022 3:05 AM C DT Parainfluenza, droplet Comment:09/28/2022 - IP Sonia Antoine 09/19/2022 09/19/2022 09/28/2022 11:19 AM CDT Parainfluenza, contact + alireza plet Comment:09/24/2022 Patient is not immunocompromised DIANNE Antoine RN 09/19/2022 09/19/2022 09/24/2022 11:03 AM CDT COVID: Suspected 09/26/2022 09/26/2022 09/26/2022 12:27 PM CDT documented as of this encounter Care Teams Life Enrichment Director Relationship Specialty Start Date End Date Navin Brown MD PCP - General Family Medicine 06/23/18 11/13/23 Ian Ulrich MD [address] [place] [address] PCP - General Internal Medicine 11/14/23 Alexa Olsen LPN [address] [place] [address] [address] [place] [address] ACO Care Director Speech Language 04/03/22 05/02/22 Alexa Choe RN [address] [place] [address] [place] [address] Suspender Cutter 05/31/22 06/10/22 Rhonda Long MA [address] [place] [address] [address] [place] [address] ACO Care Director Speech Language 01/23/23 01/24/23 Muna Dsouza, LEONORA [address] [place] [address] [address] [place] [address] Suspender Cutter 05/01/23 05/01/23 documented as of this encounter
--- OUTSIDE RECORDS SUMMARY | 2025-02-20 16:01 | XMS_ITS | Encounter Summary ---
Author Organization [facility] Facility Care Team Providers Care Seed Service Advisor Name Role Phone Navin Brown MD Primary Care Provider [phone] Alexa Olsen LPN Unavailable [phone] Alexa Choe RN Unavailable [phone] Rhonda Long MA Unavailable [phone] Muna Dsouza RN Unavailable [phone] Ian Ulrich MD Primary Care Provider [phone] Encounter Details Date Type Department Care Team (Latest Contact Info) Description 12/19/2017 Orders Only [facility] CLINCONV ProviderRustam MD [address] [place] [address] Social History Tobacco Use Types Packs/Day Years Used Date Smoking Tobacco: Never Sex and Gender Information Value Date Recorded Sex Assigned at Not on file Legal Sex Male 10: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 Patient is on vent and will require 20 days of Isolation. May be reviewed for Iso d/c on 07/26/22, must be off antipyretics for 24 hours, afebrile, and show improvement in O2. Chanda Slater 07/05/2022 07/05/2022 07/30/2022 3:05 AM C DT MRSA 07/05/2022 09/19/2022 03/18/2023 3:05 AM DRY KILN FEEDER COVID: Recovered Comment:Added based on recent COVID infection. 07/30/2022 08/02/2022 10/28/2022 3:05 AM C DT Parainfluenza, droplet Comment:09/28/2022 - IP Sonia Antoine 09/19/2022 09/19/2022 09/28/2022 11:19 AM CDT Parainfluenza, contact + alireza plet Comment:09/24/2022 Patient is not immunocompromised DIANNE Antoine RN 09/19/2022 09/19/2022 09/24/2022 11:03 AM CDT COVID: Suspected 09/26/2022 09/26/2022 09/26/2022 12:27 PM CDT documented as of this encounter Care Teams Seed Service Advisor Relationship Specialty Start Date End Date Navin Brown MD PCP - General Family Medicine 06/23/18 11/13/23 Ian Ulrich MD [address] [place] [address] PCP - General Internal Medicine 11/14/23 Alexa Olsen LPN [address] [place] [address] [address] [place] [address] ACO Care Brewmaster 04/03/22 05/02/22 Alexa Choe RN [address] [place] [address] [place] [address] Corporate Lawyer 05/31/22 06/10/22 Rhonda Long MA [address] [place] [address] [address] [place] [address] ACO Care Brewmaster 01/23/23 01/24/23 Muna Dsouza, LEONORA [address] [place] [address] [address] [place] [address] Corporate Lawyer 05/01/23 05/01/23 documented as of this encounter
[2025-02-20 16:02] LABS: Partial Thromboplastin Time 26.1 Seconds (22.3-36.8)
[2025-02-20 16:13] LABS: Alanine Aminotransferase 30 U/L (6-50); Albumin Level 4.1 g/dL (3.5-5.1); Alkaline Phosphatase 121 U/L (38-126); Anion Gap 12 mmol/L (4-12); Aspartate Amino Transferase 37 U/L (17-59); Bilirubin,Total 0.5 mg/dL (0.2-1.3); Blood Urea Nitrogen 52 mg/dL (9-20); Calcium 9.3 mg/dL (8.4-10.2); Carbon Dioxide 25 mmol/L (22-30); Chloride 99 mmol/L (98-107); Estimated CRCL calculation 40 ml/min; Estimated Glomerular Filt Rate 51; Glucose 120 mg/dL (65-110); Potassium 3.5 mmol/L (3.4-5.0); Sodium 136 mmol/L (137-145); Total Protein 7.5 g/dL (6.3-8.2)
[2025-02-20 16:52] LABS: Add Urine Microscopic? YES; Appearance Urine Clear (Clear); Glucose Urine UA Negative (Negative); Leukocyte Esterase Ur 1+ LEU/UL (Negative); Need Manual Microscopic Reviewed; Nitrate Urine Negative (Negative); Specific Grav Ur 1.016 (1.001-1.035)
[2025-02-20 18:23] LABS: Influenza A QL RT-PCR Negative (Negative); Influenza B QL RT-PCR Negative (Negative); RSV RNA, RT-PCR Negative (Negative); SARS-CoV-2 RNA PCR Negative (Negative)
--- NOTE | 2025-02-20 18:34 | ED.AMS ---
HPI - Altered Mental Status General Chief Complaint: Altered Mental Status Stated Complaint: weakness Time Seen by Provider: 02/20/25 15:35 History of Present Illness HPI narrative: Patient is a 74-year-old male who presents ER with generalized weakness and confusion. Recently diagnosed with a urinary tract infection started on Macrobid. Patient is oriented times 2-3. He feels pressure in his lower abdomen and feels like he cannot urinate. He keeps asking for help and cannot provide much more of a history. Related Data Home Medications ?Medication ?Instructions ?Recorded ?Confirmed ?Last Taken ?Type acetaminophen 325 mg chewable 650 mg PO Q6H PRN Pain (Scale 12/11/21 04/27/23 Unknown History tablet Score 1-3) aspirin 81 mg chewable tablet 81 mg PO DAILY 12/11/21 04/27/23 Unknown History atorvastatin 80 mg tablet 80 mg PO HS 12/11/21 04/27/23 Unknown History polyethylene glycol 3350 17 17 g PO DAILY PRN Constipation 12/11/21 04/27/23 Unknown History gram/dose oral powder venlafaxine 75 mg tablet 75 mg PO BID 12/11/21 04/27/23 1 Day Ago History ~04/26/23 75 mg esomeprazole magnesium 40 mg 40 mg PO BID 04/29/22 04/27/23 Unknown History capsule,delayed release polyvinyl alcohol-povidone (PF) 1 drp EACH EYE TID 04/29/22 04/27/23 Unknown History 1.4 %-0.6 % eye drops in a dropperette (Refresh Classic (PF)) bupropion HCl 75 mg tablet 75 mg PO DAILY 04/30/22 04/27/23 Unknown History olanzapine 2.5 mg tablet 2.5 mg PO BID 03/25/23 04/27/23 Unknown History potassium chloride 20 mEq 20 meq PO DAILY 03/25/23 04/27/23 Unknown History tablet,extended release(part/cryst) sucralfate 1 gram tablet 1 g PO ACHS 03/25/23 04/27/23 1 Day Ago History ~04/26/23 1 gm Skin Prep Wipes 04/27/23 04/27/23 Unknown History gabapentin 100 mg capsule 100 mg PO HS 04/27/23 04/27/23 Unknown History ondansetron 4 mg disintegrating 4 mg PO Q4H PRN Nausea And Vomiting 04/27/23 04/27/23 Unknown History tablet Allergies Allergy/AdvReac Type Severity Reaction Status Date / Time haloperidol (From Haldol) Allergy Unknown Verified 04/07/23 01:39 Penicillins Allergy Unknown Verified 04/27/23 03:42 Review of Systems Review of Systems: ROS unobtainable: Yes unobtainable due to mental status PMFSH Past Medical History Medical History Chronic anemia Coronary artery disease [place]? in 07/2021. 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 Pericardial effusion. Deep venous thrombosis Dementia Depression Diabetic neuropathy Essential hypertension Gastroesophageal reflux disease History of GI bleed Morbid obesity due to excess calories Pericardial effusion Peripheral arterial disease Pulmonary embolism Transient ischemic attack Type 2 diabetes mellitus Diet controlled. Venous stasis dermatitis Surgical History Surgical History History of ankle surgery History of cardiac catheterization History of gastrostomy tube placement History of laparoscopic cholecystectomy (02/01/22) History of percutaneous coronary intervention Family History Family History Father Family history of malignant neoplasm Mother Family history of heart disease in male family member before age 55 Family history of cardiovascular disease Hypertension Hx of CABG Social History Social History Social History: Surrogate medical decision maker: Rachna Almaraz, spouse. Code status: Full code. Smoking status: Never smoker Second hand tobacco smoke exposure: Yes Alcohol intake: unknown Substance use: unknown Substance use type: does not use Do You Feel Safe in your Home?: Yes Lack of Transportation: No Lack of Food: Never True Current Housing: I Have Housing Concerned About Future Housing: No Difficulty Paying Gas/Electric Bills: No Difficulty Paying for Meds: No Currently Unemployed: No Education: Decline to Answer Difficulty w/ Childcare or Family Care: No Additional living arrangements comments: Resident at [facility]. Spiritual care concerns: No Exam Narrative: GENERAL: Well-appearing, well-nourished, and in no acute distress. HEAD: Normocephalic, atraumatic. ENT: Mucous membranes moist. NECK: Supple. CHEST: Clear to auscultation. No respiratory distress. HEART: Regular rate and rhythm. Normal peripheral pulses. ABDOMEN: Soft, mild suprapubic tenderness, nondistended. EXTREMITIES: Normal range of motion. No edema. SKIN: Warm, dry, no rash. NEURO: Alert and oriented x2. PSYCH: Normal mood and affect. Course Course Emergency Course: Patient with copious diarrhea that is watery. Sent for C diff. Has a green tinge to it. Urine without infection. Normal hemoglobin. White blood cell count significantly elevated. Vital Signs Vital signs: Vital Signs Pulse Rate 89 02/20/25 15:29 Respiratory Rate 14 02/20/25 15:29 Blood Pressure 113/72 02/20/25 15:29 Pulse Oximetry 94 02/20/25 15:29 Oxygen Delivery Room Air 02/20/25 15:29 Pulse Rate 89 02/20/25 15:29 Respiratory Rate 14 02/20/25 15:29 Blood Pressure 113/72 02/20/25 15:29 Pulse Oximetry 94 02/20/25 15:29 Oxygen Delivery Room Air 02/20/25 15:29 MDM - Altered Mental Status Differential Diagnosis Differential diagnosis: Likely other (UTI, pyelonephritis, urinary retention, metabolic encephalopathy, sepsis) Lab Data 02/20/25 15:43 02/20/25 15:43 Labs: Lab Results 02/20/25 02/20/25 02/20/25 Range/Units 15:43 16:32 17:42 WBC 17.4 H (4.5-10.0) K/mm3 RBC 5.06 (4.6-6.20) M/mm3 Hgb 15.8 D (14.0-18.0) g/dL Hct 46.5 (42.0-52.0) % MCV 91.9 (80-100) fl MCH 31.2 (26-34) pg MCHC 34.0 (32-36) g/dl RDW 16.0 H (11.5-14.5) % Plt Count 280 (150-375) k/mm3 MPV 9.4 (7.4-10.4) fl Immature Gran % (Auto) 1.3 H (0-0.5) % Neut % (Auto) 63.3 (45.5-73.1) % Lymph % (Auto) 23.5 (18.3-44.2) % Esmeralda % (Auto) 6.6 (2.6-8.5) % Eos % (Auto) 5.1 H (0-4.4) % Baso % (Auto) 0.2 (0.2-1.2) % Lymph # (Auto) 4.09 H (0.9-3.2) K/mm3 Esmeralda # (Auto) 1.1 H (0.1-0.6) K/mm3 Eos # (Auto) 0.9 H (0-0.3) K/mm3 Baso # (Auto) 0.0 (0.0-0.1) K/mm3 Abs Immat Gran (auto) 0.23 H (0.00-0.031) K/mm3 Absolute Neuts (auto) 11.0 H (1.3-6.7) K/mm3 Absolute Nucleated RBC 0.000 (0.0-0.012) K/mm3 Nucleated RBC % 0.0 (0.0-0.2) % PT 14.7 (11.1-14.7) Seconds INR 1.1 APTT 26.1 (22.3-36.8) Seconds Sodium 136 L (137-145) mmol/L Potassium 3.5 (3.4-5.0) mmol/L Chloride 99 (98-107) mmol/L Carbon Dioxide 25 (22-30) mmol/L Anion Gap 12 (4-12) mmol/L BUN 52 H D (9-20) mg/dL Creatinine 1.36 H (0.7-1.3) mg/dL Estim Creat Clear Calc 40 ml/min Estimated GFR 51 L (59 - ) Glucose 120 H (65-110) mg/dL Lactic Acid 1.4 (0.7-2.0) mmol/L Calcium 9.3 (8.4-10.2) mg/dL Total Bilirubin 0.5 (0.2-1.3) mg/dL AST 37 (17-59) U/L ALT 30 (6-50) U/L Alkaline Phosphatase 121 (38-126) U/L Total Protein 7.5 (6.3-8.2) g/dL Albumin 4.1 (3.5-5.1) g/dL Urine Color Yellow (Yellow) Urine Appearance Clear (Clear) Urine pH 5.0 (5.0-9.0) Ur Specific [place] 1.016 (1.001-1.035) Urine Protein Negative (Negative) mg/dL Urine Glucose (UA) Negative (Negative) mg/dL Urine Ketones Trace H (Negative) mg/dL Ur Blood (Man) Negative (Negative) Urine Nitrate Negative (Negative) Urine Bilirubin Negative (Negative) Urine Urobilinogen 0.2 (<2.0) mg/dL Add Ur Microanalysis Reviewed Leukocyte Esterase Rfl 1+ H (Negative) BALJINDER/UL Urine RBC 0-2 (0-2) /hpf Urine WBC 0-5 (0-3) /hpf Ur Squamous Epith Cells None seen (Few) /hpf Urine Bacteria None seen /hpf Urine Casts 6-10 C. difficile (PCR) Influenza A (RT-PCR) Negative (Negative) Influenza B (RT-PCR) Negative (Negative) RSV (RT-PCR) Negative (Negative) SARS-CoV-2 RNA (RT-PCR) Negative (Negative) 02/20/25 Range/Units 18:11 WBC (4.5-10.0) K/mm3 RBC (4.6-6.20) M/mm3 Hgb (14.0-18.0) g/dL Hct (42.0-52.0) % MCV (80-100) fl MCH (26-34) pg MCHC (32-36) g/dl RDW (11.5-14.5) % Plt Count (150-375) k/mm3 MPV (7.4-10.4) fl Immature Gran % (Auto) (0-0.5) % Neut % (Auto) (45.5-73.1) % Lymph % (Auto) (18.3-44.2) % Esmeralda % (Auto) (2.6-8.5) % Eos % (Auto) (0-4.4) % Baso % (Auto) (0.2-1.2) % Lymph # (Auto) (0.9-3.2) K/mm3 Esmer[place]da # (Auto) (0.1-0.6) K/mm3 Eos # (Auto) (0-0.3) K/mm3 Baso # (Auto) (0.0-0.1) K/mm3 Abs Immat Gran (auto) (0.00-0.031) K/mm3 Absolute Neuts (auto) (1.3-6.7) K/mm3 Absolute Nucleated RBC (0.0-0.012) K/mm3 Nucleated RBC % (0.0-0.2) % PT (11.1-14.7) Seconds INR APTT (22.3-36.8) Seconds Sodium (137-145) mmol/L Potassium (3.4-5.0) mmol/L Chloride (98-107) mmol/L Carbon Dioxide (22-30) mmol/L Anion Gap (4-12) mmol/L BUN (9-20) mg/dL Creatinine (0.7-1.3) mg/dL Estim Creat Clear Calc ml/min Estimated GFR (59 - ) Glucose (65-110) mg/dL Lactic Acid (0.7-2.0) mmol/L Calcium (8.4-10.2) mg/dL Total Bilirubin (0.2-1.3) mg/dL AST (17-59) U/L ALT (6-50) U/L Alkaline Phosphatase (38-126) U/L Total Protein (6.3-8.2) g/dL Albumin (3.5-5.1) g/dL Urine Color (Yellow) Urine Appearance (Clear) Urine pH (5.0-9.0) Ur Specific [place] (1.001-1.035) Urine Protein (Negative) mg/dL Urine Glucose (UA) (Negative) mg/dL Urine Ketones (Negative) mg/dL Ur Blood (Man) (Negative) Urine Nitrate (Negative) Urine Bilirubin (Negative) Urine Urobilinogen (<2.0) mg/dL Add Ur Microanalysis Leukocyte Esterase Rfl (Negative) BALJINDER/UL Urine RBC (0-2) /hpf Urine WBC (0-3) /hpf Ur Squamous Epith Cells (Few) /hpf Urine Bacteria /hpf Urine Casts C. difficile (PCR) Pending Influenza A (RT-PCR) (Negative) Influenza B (RT-PCR) (Negative) RSV (RT-PCR) (Negative) SARS-CoV-2 RNA (RT-PCR) (Negative) Imaging Data Radiologist's impression: ITS Impressions Chest X-Ray 02/20/25 18:44 Impression: No acute cardiopulmonary abnormality. Discharge Plan Discharge Clinical Impression: Weakness, Diarrhea, Dehydration Patient Disposition: Still a Patient Condition: Stable Patient Language: Bulgarian Prescriptions: No Action tamsulosin 0.4 mg capsule 0.4 mg PO HS Qty: 30 0RF (DME) Skin Prep Wipes Rx Instructions: BID ostomy gabapentin 100 mg capsule 100 mg PO HS ondansetron 4 mg tablet,disintegrating 4 mg PO Q4H PRN (Reason: Nausea And Vomiting) furosemide 20 mg tablet 20 mg PO DAILY Qty: 30 1RF ferrous sulfate 325 mg (65 mg iron) Tablet,Delayed Release (Dr/Ec) 325 mg PO DAILY Qty: 90 1RF metoprolol succinate [Toprol XL] 25 mg Tablet Extended Release 24 Hr 25 mg PO QAM Qty: 90 1RF Entresto 24-26 mg Tablet 1 tablet PO Q12HR Qty: 60 5RF atorvastatin 80 mg Tablet 80 mg PO HS aspirin 81 mg Tablet,Chewable 81 mg PO DAILY acetaminophen 325 mg Tablet,Chewable 650 mg PO Q6H PRN (Reason: Pain (Scale Score 1-3)) polyethylene glycol 3350 17 gram/dose Powder 17 g PO DAILY PRN (Reason: Constipation) venlafaxine 75 mg Tablet 75 mg PO BID Rx Instructions: before breakfast and dinner esomeprazole magnesium 40 mg capsule,delayed release(DR/EC) 40 mg PO BID Rx Instructions: before breakfast and dinner Refresh Classic (PF) 1.4-0.6 % Dropperette 1 drp EACH EYE TID bupropion HCl 75 mg tablet 75 mg PO DAILY finasteride [Proscar] 5 mg Tablet 5 mg PO QAM Qty: 30 0RF sucralfate 1 gram tablet 1 g PO ACHS olanzapine 2.5 mg tablet 2.5 mg PO BID potassium chloride 20 mEq tablet,ER particles/crystals 20 meq PO DAILY methimazole 5 mg tablet 5 mg PO DAILY Qty: 30 0RF hydrocodone-acetaminophen 5-325 mg tablet 1 tablet PO Q6H PRN (Reason: pain) Qty: 30 0RF Follow-up/Referrals: Kevin,Navin Whaley MD [Primary Care Provider, Unknown]
[2025-02-20 19:01] LABS: Toxigenic C. Diff NEGATIVE (NEGATIVE)
--- NOTE | 2025-02-20 19:45 | PM.IMHP ---
H&P: HPI History of Present Illness Date/Time: 02/20/25 19:45 Chief Complaint: Decreased Appetite, Diarrhea, AMS Narrative: 74 y/o M with PMH of chronic anemia, CAD, DVT, dementia, depression, HTN, GERD, peripheral artery disease, PE, TIA, diabetes diet controlled, and venous stasis dermatitis presents here with worsening confusion, diarrhea, and weakness. The patient presents here from [facility] via EMS on 02/20 for further evaluation of generalized weakness, worsening confusion, and diarrhea. He was recently treated for a UTI and placed on Macrobid last week. The patient reports he he has been unable to walk since he was diagnosed with a UTI due to the generalized weakness. He denies focal weakness or focal numbness. Now also reporting inability to urinate, diarrhea, and lower abdominal fullness. Some concern for increased confusion, has history of dementia. Currently orientated A&Ox4. Denies associated fever, chills, body aches, blood in his stool, or abdominal pain. Denies dysuria or urinary frequency. Patient additionally has had purulence drainage from his bilateral eyes for some time. No recent treatment or topical antibiotics. Initial VS at presentation: HR 89, R 14, 113/72, and 94% on RA. ED workup showed: WBC 17.4, hemoglobin 15.8 (10.0 on 06/13/2023), coags normal, sodium 136, creatinine 1.36 and GFR 51 (1.1 and GFR >60 in 2023), glucose 120, lactic 1.4. UA showed trace ketones and 1+ leuk esterase otherwise unremarkable. Viral PCR negative. C diff negative. Even CXR showed no acute cardiopulmonary abnormality. Review of Systems Review of Systems: All systems reviewed & are unremarkable except as noted in HPI and below [facility] Past Medical History Medical History Hyperthyroidism PAD (peripheral artery disease) Coronary artery disease [place]? in 07/2021. 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 Pericardial effusion. Essential hypertension Venous stasis dermatitis Gastroesophageal reflux disease Pulmonary embolism Pericardial effusion Diabetic neuropathy Type 2 diabetes mellitus Diet controlled. A1C 4.16% in 2022. Depression Chronic anemia Transient ischemic attack Deep venous thrombosis BLE Dementia History of GI bleed Morbid obesity due to excess calories Surgical History Surgical History History of tonsillectomy History of appendectomy History of percutaneous coronary intervention History of gastrostomy tube placement History of cardiac catheterization History of laparoscopic cholecystectomy (02/01/22) History of ankle surgery Family History Family History Father Family history of malignant neoplasm Mother Family history of heart disease in male family member before age 55 Family history of cardiovascular disease Hypertension Hx of CABG Social History Social History Social History: Surrogate medical decision maker: Rachna Almaraz, spouse. Code status: Full code. Smoking status: Former smoker Second hand tobacco smoke exposure: Yes Alcohol intake: never Substance use: current Substance use type: painkillers and prescription drug Do You Feel Safe in your Home?: Yes Lack of Transportation: No Lack of Food: Never True Current Housing: I Have Housing Concerned About Future Housing: No Difficulty Paying Gas/Electric Bills: No Difficulty Paying for Meds: No Currently Unemployed: No Education: Decline to Answer Difficulty w/ Childcare or Family Care: No Additional living arrangements comments: Resident at [facility]. Spiritual care concerns: No Meds Home Medications and Allergies Home Medications ?Medication ?Instructions ?Recorded ?Confirmed ?Type acetaminophen 325 mg chewable 650 mg PO Q6H PRN Pain (Scale 12/11/21 02/20/25 History tablet Score 1-3) aspirin 81 mg chewable tablet 81 mg PO DAILY 12/11/21 02/20/25 History atorvastatin 80 mg tablet 80 mg PO HS 12/11/21 02/20/25 History polyethylene glycol 3350 17 17 g PO DAILY PRN Constipation 12/11/21 02/20/25 History gram/dose oral powder venlafaxine 75 mg tablet 75 mg PO BID 12/11/21 02/20/25 History polyvinyl alcohol-povidone (PF) 1 drp EACH EYE TID 04/29/22 02/20/25 History 1.4 %-0.6 % eye drops in a dropperette (Refresh Classic (PF)) olanzapine 2.5 mg tablet 7.5 mg PO HS 03/25/23 02/20/25 History sucralfate 1 gram tablet 1 g PO ACHS 03/25/23 02/20/25 History methimazole 5 mg tablet 5 mg PO DAILY hyperthyroidism #30 03/30/23 02/20/25 Rx tabs ferrous sulfate 325 mg (65 mg 325 mg PO DAILY #90 tabs 04/30/23 02/20/25 Rx iron) tablet,delayed release sacubitril 24 mg-valsartan 26 mg 1 tablet PO Q12HR #60 tabs 04/30/23 02/20/25 Rx tablet (Entresto) cholecalciferol (vitamin D3) 1,250 1,250 mcg PO WEEKLY 02/20/25 02/20/25 History mcg (50,000 unit) capsule (Decara) docusate sodium 100 mg capsule 100 mg PO BID 02/20/25 02/20/25 History ergocalciferol (vitamin D2) 1,250 1,250 mcg PO DAILY 02/20/25 02/20/25 History mcg (50,000 unit) capsule (Vitamin D2) furosemide 20 mg tablet 40 mg PO BID 02/20/25 02/20/25 History guaifenesin 600 mg tablet, 600 mg PO BID PRN congestion 02/20/25 02/20/25 History extended release 12 hr (Mucinex) hydrocodone 5 mg-acetaminophen 325 1 tablet PO BID pain 02/20/25 02/20/25 History mg tablet nystatin 100,000 unit/gram topical 1 applic topical QID PRN 02/20/25 02/20/25 History powder (Nyamyc) erythematous condition sertraline 50 mg tablet 75 mg PO DAILY 02/20/25 02/20/25 History Allergies Allergy/AdvReac Type Severity Reaction Status Date / Time haloperidol (From Haldol) Allergy Unknown Verified 04/07/23 01:39 Penicillins Allergy Unknown Verified 04/27/23 03:42 Vital Signs Vital Signs - 24 hr 02/20/25 15:29 Pulse Rate 89 Respiratory Rate 14 Blood Pressure 113/72 Pulse Oximetry 94 Oxygen Delivery Room Air Exam Const: General: comfortable and no acute distress Other: , male, elderly, chronically ill-appearing HENMT: Face/Nose/Sinus: Normal nares present Mouth: Yes dry mucous membranes Eyes: Other: Injected sclera with prenatally drainage from bilateral eyes. PERRLA. EOM intact. Resp: Effort & Inspection: normal respiratory effort Auscultation: clear to auscultation bilaterally Cardio: Rate: regular rate Rhythm: regular rhythm Other: S1-S2 present without murmur, rub, ectopy GI: Other: Abdomen soft, mild tenderness in the suprapubic/mid lower abdominal region. Hyperactive bowel sounds in all quadrants. Urinary Catheter: Urinary Catheter: patent and draining Skin: General skin exam: normal color and no rashes or lesions noted Wounds: no wounds Other: Poor skin turgor Neuro: Speech: normal speech Sensory Exam: normal sensation Other: + generalized weakness. A&O x4. Extrem: General: normal to inspection Psych: Mental Status: mental status grossly normal Affect: normal affect Other: Fair insight and judgment, pleasant H&P: Results Labs Labs: Short CBC 02/20/25 Range/Units 15:43 WBC 17.4 H (4.5-10.0) K/mm3 Hgb 15.8 D (14.0-18.0) g/dL Hct 46.5 (42.0-52.0) % Plt Count 280 (150-375) k/mm3 BMP 02/20/25 15:43 Sodium 136 L Potassium 3.5 Chloride 99 Carbon Dioxide 25 BUN 52 H D Creatinine 1.36 H Glucose 120 H Calcium 9.3 Liver Function 02/20/25 Range/Units 15:43 Total Bilirubin 0.5 (0.2-1.3) mg/dL AST 37 (17-59) U/L ALT 30 (6-50) U/L Alkaline Phosphatase 121 (38-126) U/L Albumin 4.1 (3.5-5.1) g/dL Urine 02/20/25 Range/Units 16:32 Urine Color Yellow (Yellow) Urine Appearance Clear (Clear) Urine pH 5.0 (5.0-9.0) Ur Specific [place] 1.016 (1.001-1.035) Urine Protein Negative (Negative) mg/dL Urine Glucose (UA) Negative (Negative) mg/dL Assessment and Plan Assessment and plan (1) Diarrhea: Qualifiers: Diarrhea type: unspecified type Qualified Code(s): R19.7 - Diarrhea, unspecified Code(s): R19.7 - Diarrhea, unspecified Status: Acute Assessment and Plan: Profuse diarrhea following antibiotic course for UTI. C diff negative on 02/20. Concern for acute dehydration given BRIAN and with increased hemoglobin compared to his baseline. Lactic 1.4, pre no tachycardia or tachypnea. Did not meet SIRS criteria. - fecal management system placed in the ED on 02/20 due to the large volume of diarrhea he was experiencing during their workup - obtain CT of the abdomen/pelvis to rule out diverticulitis or bowel obstruction >> per my personal review, no obstruction and under distended diffusely - viral PCR negative on 02/20 - check stool culture to rule out infectious stool - WBC 17.4, trend - IV fluids: NS 100 mL/hr - started on cefepime and Flagyl on 02/20, continued inpatient - hold home docusate (2) Dehydration: Code(s): E86.0 - Dehydration Status: Acute Assessment and Plan: Mild BRIAN noted and Hgb elevated compared to baseline. Having profuse diarrhea which has likely led to patient's dehydration. Reviewed vital signs from the emergency department, no hypotension noted. - IV fluids: 2L bolus -> 100 mL/hr - monitor renal function and electrolytes, correct as needed (3) Weakness: Code(s): R53.1 - Weakness Status: Acute Assessment and Plan: Patient having generalized weakness. Likely multifactorial including recent UTI, profuse diarrhea, and acute dehydration. Currently rehydrating. If patient remains weak despite rehydration and cessation of diarrhea, consider PT/OT evaluation treatment. (4) Conjunctivitis: Qualifiers: Acute conjunctivitis type: bacterial Conjunctivitis type: acute Laterality: bilateral Qualified Code(s): H10.33 - Unspecified acute conjunctivitis, bilateral Code(s): H10.9 - Unspecified conjunctivitis Status: Acute Assessment and Plan: Patient reports drainage and discomfort to his bilateral eyes for some time. No recent treatment or topical antibiotics. Clinical exam concerning for bilateral conjunctivitis. - erythromycin Q4H while awake x5 days - monitor for improvement - educated to avoid touching eyes and will need to practice hand hygiene if eyes touched (5) Dementia: Qualifiers: Dementia behavioral or psychological symptom: without behavioral, psychotic, or mood disturbance or anxiety Dementia severity: moderate Dementia type: unspecified type Qualified Code(s): F03.B0 - Unspecified dementia, moderate, without behavioral disturbance, psychotic disturbance, mood disturbance, and anxiety Code(s): F03.90 - Unspecified dementia, unspecified severity, without behavioral disturbance, psychotic disturbance, mood disturbance, and anxiety Status: Chronic Assessment and Plan: Worsening confusion, A/Ox4 upon eval for admission. Has baseline dementia. No focal deficits on exam. Likely related to infectious process/dehydration, currently having profuse diarrhea. Started on IV fluids. - monitor neuro status. (6) Chronic anemia: Code(s): D64.9 - Anemia, unspecified Status: Acute Assessment and Plan: Hgb baseline 8-10. Currently 15.8, likely related to acute dehydration. - transfuse if less than 7 - continue iron supplement - monitor (7) Hyperthyroidism: Code(s): E05.90 - Thyrotoxicosis, unspecified without thyrotoxic crisis or storm Status: Chronic Assessment and Plan: - check TSH - continue methimazole (8) Hypertension: Qualifiers: Hypertension type: primary hypertension Qualified Code(s): I10 - Essential (primary) hypertension Code(s): I10 - Essential (primary) hypertension Status: Chronic Assessment and Plan: - chronic, currently 113/72 - continue home Entresto - monitor Plan Diet: Heart healthy GI Prophylaxis: N/a DVT Prophylaxis: SCDs IV fluids: 2L bolus -> 100 mL/hr Lines/Tubes: Peripheral IV, fecal management system Code Status: Full code Quality VTE Prophylaxis VTE prophylaxis: mechanical ordered Hospitalist MIPS Advance Care Plan I have confirmed that the patient's Advanced Care Plan is present, code status is documented, or surrogate decision maker is listed in patient medical record.: Yes Medication Reconciliation I have utilized all available resources to obtain, update and review the patients current medications (includes all prescriptions, OTC, herbals, cannabis, and nutritional supplements).: Yes
[2025-02-20] MEDS: SODIUM CHLORIDE 0.9% IV 1,000 ML 100 ML IV CONT (19:47)
[2025-02-20] MEDS: CEFEPIME 2 GM in SODIUM CHLORIDE 0.9% IV 50 ML 100 ML IVPB (19:48)
[2025-02-20] MEDS: LACTATED RINGERS 1,000 ML 999 ML IV CONT ×2 (20:18→23:08)
[2025-02-20 20:22] VITALS: BP 113/71; PULSE 95; RESP 20; TEMP 36.6; O2SAT 100
--- NOTE | 2025-02-20 20:32 | WPCEDHO ---
ED Hand Off Checklist All vitals saved:yes IV Site documented:yes All med administrations documented:yes Triage Note Triage Note Pt to ed from [facility] at [facility]20[facility]25 15[facility]29 [facility]. [place] staff states he was treated for UTI the last week with macrobid but still has had confusion and decreased appetite. Pt A&Ox4 for EMS and upon arrival. Pt also states he has not been able to walk since he got UTI symptoms last week. Allergies haloperidol (From Haldol) Allergy (Verified 04/07/23 01:39) Unknown Penicillins Allergy (Verified 04/27/23 03:42) Unknown Pt reports reaction as a child Family History (Last Reviewed 02/20/25 @ 20:13 by Abena Nixon, JUAN) Father Family history of malignant neoplasm Mother Family history of heart disease in male family member before age 55 Family history of cardiovascular disease Hypertension Hx of CABG Active Medications including assessments/comments Sodium Chloride (Normal Saline Iv) 1,000 mls @ 100 mls/hr IV CONT .Q10H MYA Last Admin: 02/20/25 19:47 Dose: 100 mls/hr Documented By: GARY Infusion/Titration Document 02/20/25 19:47 W (Rec: 02/20/25 19:47 SRW [id number]) Intake IV Site Peripheral Access Right Antecubital Container Volume 1,000 Waste Amount 0 Dosing Infusion Rate 100 Cumulative Dose Not Applicable Increase/Decrease Started Elapsed Time Elapsed Time ( 0m minutes) Administered/Completed Medications Discontinued Medications Cefepime HCl 2 gm/ Sodium (Chloride) 50 mls @ 100 mls/hr IVPB ONCE STA Stop: 02/20/25 19:39 Last Admin: 02/20/25 19:48 Dose: 100 mls/hr Documented By: W Notes 02/20/25 15:59 Nurse Note by Daniela Flores Pt has diffuse red rash to chest and abdomen as well as top of thighs. Robbie MARTINEZ made aware. Initialized on 02/20/25 15:59 - END OF NOTE Interventions/Assessments IV / Saline Lock, Insert Start: 02/20/25 15:37 Freq: STAT Status: Active Protocol: Document 02/20/25 15:38 KLJeffy (Rec: 02/20/25 15:39 KLM [id number]) IV Assessment Peripheral Access Right Antecubital IV Catheter Access Initiated IV Insertion Date 02/20/25 IV Insertion Time 15:39 Catheter Gauge 18 IV Insertion 1 Attempts IV Site Assessment WNL IV Care and WNL Maintenance PA: Neurological Assessment Start: 02/20/25 15:28 Freq: Status: Active Protocol: Document 02/20/25 15:38 BORIS (Rec: 02/20/25 15:38 [facility] [id number]) Neurological Assessment Level of Alert,Awake Consciousness Arousable to Verbal Orientation Oriented to Person,Oriented to Place,Oriented to Time Neurological Confusion,Weakness, General Symptoms Hallucination Type None Behavior Appropriate,Cooperative Patient Able to Comprehend Comprehension Memory Description Intact Ability to Maintain Unable to Assess Balance Facial Symmetry Symmetrical Speech Pattern Clear [place] Coma Scale Eyes Open Verbal Oriented and Alert Motor Follows Commands [place] Coma Total 15 Score Last Vital Signs Temperature 97.9 F 02/20/25 20:22 Pulse Rate 95 02/20/25 20:22 Respiratory Rate 20 02/20/25 20:22 Pulse Oximetry 100 02/20/25 20:22 Blood Pressure 113/71 02/20/25 20:22 Blood Pressure Mean 85 02/20/25 20:22 Oxygen Delivery Room Air 02/20/25 15:29 Weight 86.2 kg 02/20/25 15:29 Last Result - Abnormals Only WBC 17.4 K/mm3 (4.5-10.0) H 02/20/25 15:43 RDW 16.0 % (11.5-14.5) H 02/20/25 15:43 Immature Gran % (Auto) 1.3 % (0-0.5) H 02/20/25 15:43 Eos % (Auto) 5.1 % (0-4.4) H 02/20/25 15:43 Lymph # (Auto) 4.09 K/mm3 (0.9-3.2) H 02/20/25 15:43 [facility] # (Auto) 1.1 K/mm3 (0.1-0.6) H 02/20/25 15:43 Eos # (Auto) 0.9 K/mm3 (0-0.3) H 02/20/25 15:43 Abs Immat Gran (auto) 0.23 K/mm3 (0.00-0.031) H 02/20/25 15:43 Absolute Neuts (auto) 11.0 K/mm3 (1.3-6.7) H 02/20/25 15:43 Sodium 136 mmol/L (137-145) L 02/20/25 15:43 BUN 52 mg/dL (9-20) H D 02/20/25 15:43 Creatinine 1.36 mg/dL (0.7-1.3) H 02/20/25 15:43 Estimated GFR 51 (59-) L 02/20/25 15:43 Glucose 120 mg/dL (65-110) H 02/20/25 15:43 Urine Ketones Trace mg/dL (Negative) H 02/20/25 16:32 Leukocyte Esterase Rfl 1+ BALJINDER/UL (Negative) H 02/20/25 16:32 Most Recent Suicide Severity Rating Suicide Severity Rating NO RISK INDICATED 02/20/25 15:29
--- NOTE | 2025-02-20 20:33 | PC.NURSE ---
report given to manohar doe. ready for transport
[2025-02-20] MEDS: metroNIDAZOLE 500 MG/ISO 100ML 500 MG/100 ML BAG 100 MG IVPB (20:38)
[2025-02-20 20:52] LABS: Magnesium 2.9 mg/dL (1.6-2.3)
[2025-02-20 21:18] VITALS: BMI 33.7
--- NOTE | 2025-02-20 21:19 | ADMGEN ---
This patient, Juan Pablo Almaraz, was admitted to 2 Medical Room 256-. Patient/family oriented to hospital policies and general routines including ID bracelet, bed and alarms, visiting hours, pain management, procedures, bathroom and other care routines, personal items, smoking policy, room service/diet, and visiting hours. Information on how to activate the Rapid Response Team has been discussed. Patient/Family are encouraged to report perceived risks to care and to ask questions if they do not understand what they are told or what they should do.
[2025-02-20 21:25] VITALS: BP 117/63; PULSE 87; RESP 18; TEMP 36.2; O2SAT 95
[2025-02-20 21:38] VITALS: BMI 33.7
[2025-02-20 22:34] VITALS: PULSE 87; RESP 18; O2SAT 95
--- NOTE | 2025-02-20 22:42 | PCRCNOTE ---
Pt home cpap/bipap unit not brought in. Pt does not request one from [facility] at this time.
[2025-02-20] MEDS: HYDROcodone/acetaminophen (*CRX) 5-325 MG TABLET 1 TAB PO (23:15)
[2025-02-20] MEDS: SACUBITRIL/VALSARTAN 24-26 MG TABLET 1 TAB PO (23:20)
[2025-02-20] MEDS: VENLAFAXINE HCL 75 MG TABLET PO (23:20)
[2025-02-20] MEDS: ATORVASTATIN 40 MG TABLET 80 MG PO (23:20)
[2025-02-20] MEDS: SUCRALFATE 1 GM TABLET PO (23:20)
[2025-02-20] MEDS: ARTIFICIAL TEARS OPHTH SOLN 15 ML BOTTLE 1 DROP EACH EYE (23:20)
[2025-02-21 04:46] LABS: Hematocrit 45.8 % (42.0-52.0); Hemoglobin 15.5 g/dL (14.0-18.0); Immature Granulocyte Percent A 1.3 % (0-0.5); Lymphocytes Absolute Auto 3.21 K/mm3 (0.9-3.2); Mean Corpuscular HGB Conc 33.8 g/dl (32-36); Mean Corpuscular Hemoglobin 32.6 pg (26-34); Mean Corpuscular Volume 96.2 fl (80-100); Nucleated Red Blood Cells Absolute Auto 0.000 K/mm3 (0.0-0.012); Nucleated Red Blood Cells Perc 0.0 % (0.0-0.2); Platelet Count Result 243 k/mm3 (150-375); Red Blood Count 4.76 M/mm3 (4.6-6.20); White Blood Count 12.1 K/mm3 (4.5-10.0)
[2025-02-21 05:02] LABS: Anion Gap 12 mmol/L (4-12); Blood Urea Nitrogen 37 mg/dL (9-20); Calcium 9.0 mg/dL (8.4-10.2); Carbon Dioxide 19 mmol/L (22-30); Chloride 106 mmol/L (98-107); Estimated CRCL calculation 58 ml/min; Estimated Glomerular Filt Rate > 60; Glucose 90 mg/dL (65-110); Magnesium 3.0 mg/dL (1.6-2.3); Potassium 3.3 mmol/L (3.4-5.0); Sodium 137 mmol/L (137-145)
[2025-02-21 05:43] LABS: Thyroid Stimulating Hormone Reflex 1.250 uIU/mL (0.465-4.68)
[2025-02-21] MEDS: ERYTHROMYCIN OPHTH OINTMENT 1 GM TUBE 1 APPLIC EACH EYE ×5 (05:59→21:36)
[2025-02-21] MEDS: metroNIDAZOLE 500 MG/ISO 100ML 500 MG/100 ML BAG 100 MG IVPB ×3 (05:59→22:00)
[2025-02-21] MEDS: SODIUM CHLORIDE 0.9% IV 1,000 ML 100 ML IV CONT ×2 (05:59→17:48)
[2025-02-21] MEDS: SUCRALFATE 1 GM TABLET PO ×4 (05:59→21:35)
[2025-02-21 06:00] VITALS: BP 105/57; PULSE 80; RESP 18; TEMP 36.8; O2SAT 95
[2025-02-21] MEDS: CEFEPIME 2 GM in SODIUM CHLORIDE 0.9% IV 50 ML 100 ML IVPB ×2 (09:20→21:34)
[2025-02-21] MEDS: ASPIRIN 81 MG CHEWABLE TABLET PO (09:20)
[2025-02-21] MEDS: FUROSEMIDE 40 MG TABLET PO ×2 (09:21→16:55)
[2025-02-21] MEDS: FERROUS SULFATE 325 MG TABLET PO (09:21)
[2025-02-21] MEDS: HYDROcodone/acetaminophen (*CRX) 5-325 MG TABLET 1 TAB PO ×2 (09:21→16:55)
[2025-02-21] MEDS: VENLAFAXINE HCL 75 MG TABLET PO ×2 (09:22→16:55)
[2025-02-21] MEDS: SACUBITRIL/VALSARTAN 24-26 MG TABLET 1 TAB PO ×2 (09:22→21:35)
[2025-02-21] MEDS: SERTRALINE HCL 25 MG TABLET 75 MG PO (09:22)
--- NOTE | 2025-02-21 10:42 | PM.IMPN ---
Progress Note: A&P Assessment and Plan (1) Diarrhea: Qualifiers: Diarrhea type: unspecified type Qualified Code(s): R19.7 - Diarrhea, unspecified Code(s): R19.7 - Diarrhea, unspecified Status: Acute Assessment and Plan: Profuse diarrhea following antibiotic course for UTI. C diff negative on 02/20. Concern for acute dehydration given BRIAN and with increased hemoglobin compared to his baseline. Lactic 1.4, pre no tachycardia or tachypnea. Did not meet SIRS criteria. - fecal management system placed in the ED on 02/20 due to the large volume of diarrhea he was experiencing during their workup - obtain CT of the abdomen/pelvis to rule out diverticulitis or bowel obstruction >> per my personal review, no obstruction and under distended diffusely - viral PCR negative on 02/20 - check stool culture to rule out infectious stool - WBC 17.4, trend - IV fluids: NS 100 mL/hr - started on cefepime and Flagyl on 02/20, continued inpatient - hold home docusate (2) Dehydration: Code(s): E86.0 - Dehydration Status: Acute Assessment and Plan: Mild BRIAN noted and Hgb elevated compared to baseline. Having profuse diarrhea which has likely led to patient's dehydration. Reviewed vital signs from the emergency department, no hypotension noted. - IV fluids: 2L bolus -> 100 mL/hr - monitor renal function and electrolytes, correct as needed (3) Weakness: Code(s): R53.1 - Weakness Status: Acute Assessment and Plan: Patient having generalized weakness. Likely multifactorial including recent UTI, profuse diarrhea, and acute dehydration. Currently rehydrating. If patient remains weak despite rehydration and cessation of diarrhea, consider PT/OT evaluation treatment. will order pt/ot (4) Conjunctivitis: Qualifiers: Acute conjunctivitis type: bacterial Conjunctivitis type: acute Laterality: bilateral Qualified Code(s): H10.33 - Unspecified acute conjunctivitis, bilateral Code(s): H10.9 - Unspecified conjunctivitis Status: Acute Assessment and Plan: Patient reports drainage and discomfort to his bilateral eyes for some time. No recent treatment or topical antibiotics. Clinical exam concerning for bilateral conjunctivitis. - erythromycin Q4H while awake x5 days - monitor for improvement - educated to avoid touching eyes and will need to practice hand hygiene if eyes touched (5) Dementia: Qualifiers: Dementia behavioral or psychological symptom: without behavioral, psychotic, or mood disturbance or anxiety Dementia severity: moderate Dementia type: unspecified type Qualified Code(s): F03.B0 - Unspecified dementia, moderate, without behavioral disturbance, psychotic disturbance, mood disturbance, and anxiety Code(s): F03.90 - Unspecified dementia, unspecified severity, without behavioral disturbance, psychotic disturbance, mood disturbance, and anxiety Status: Chronic Assessment and Plan: Worsening confusion, A/Ox4 upon eval for admission. Has baseline dementia. No focal deficits on exam. Likely related to infectious process/dehydration, currently having profuse diarrhea. Started on IV fluids. - monitor neuro status. pt appears alert and oriented (6) Chronic anemia: Code(s): D64.9 - Anemia, unspecified Status: Acute Assessment and Plan: Hgb baseline 8-10. Currently 15.8, likely related to acute dehydration. - transfuse if less than 7 - continue iron supplement - monitor (7) Hyperthyroidism: Code(s): E05.90 - Thyrotoxicosis, unspecified without thyrotoxic crisis or storm Status: Chronic Assessment and Plan: - check TSH - continue methimazole (8) Hypertension: Qualifiers: Hypertension type: primary hypertension Qualified Code(s): I10 - Essential (primary) hypertension Code(s): I10 - Essential (primary) hypertension Status: Chronic Assessment and Plan: - chronic, currently 113/72 - continue home Entresto - monitor Plan Diet: Heart healthy GI Prophylaxis: N/a DVT Prophylaxis: SCDs IV fluids: 2L bolus -> 100 mL/hr Lines/Tubes: Peripheral IV, fecal management system Code Status: Full code Time Spent With Patient Time with patient: 25 - 35 minutes Subjective Date/time seen: 02/21/25 10:42 Interval history: 74 y/o M with PMH of chronic anemia, CAD, DVT, dementia, depression, HTN, GERD, peripheral artery disease, PE, TIA, diabetes diet controlled, and venous stasis dermatitis presents here with worsening confusion, diarrhea, and weakness. Of note, he was recently treated for a UTI and placed on Macrobid last week...Report inability to urinate, diarrhea, and lower abdominal fullness. Some concern for increased confusion, has history of dementia. Currently orientated A&Ox4. Denies associated fever, chills, body aches, blood in his stool, or abdominal pain. Denies dysuria or urinary frequency. Patient additionally has had purulence drainage from his bilateral eyes for some time. No recent treatment or topical antibiotics. Initial VS at presentation: HR 89, R 14, 113/72, and 94% on RA. ED workup showed: WBC 17.4, hemoglobin 15.8 (10.0 on 06/13/2023), coags normal, sodium 136, creatinine 1.36 and GFR 51 (1.1 and GFR >60 in 2023), glucose 120, lactic 1.4. UA showed trace ketones and 1+ leuk esterase otherwise unremarkable. Viral PCR negative. C diff negative. Even CXR showed no acute cardiopulmonary abnormality. Pt is seen and examined. Pt's at a bedside estates that pt is confused and not himself. Pt is alert and oriented, answered all questions appropriately. Denies pain now, does have a chronic back pain for which h take pain meds scheduled. Typically have issues with constipations due to pain meds but had been c/o diarrhea last few days. Review of Systems Review of Systems: All systems reviewed & are unremarkable except as noted in HPI and below Exam Const: General: comfortable and no acute distress Other: , male, elderly, chronically ill-appearing HENMT: Face/Nose/Sinus: Normal nares present Mouth: Yes dry mucous membranes Eyes: Other: Injected sclera with prenatally drainage from bilateral eyes. PERRLA. EOM intact. Resp: Effort & Inspection: normal respiratory effort Auscultation: clear to auscultation bilaterally Cardio: Rate: regular rate Rhythm: regular rhythm Other: S1-S2 present without murmur, rub, ectopy GI: Other: Abdomen soft, mild tenderness in the suprapubic/mid lower abdominal region. Hyperactive bowel sounds in all quadrants. Urinary Catheter: Urinary Catheter: patent and draining Skin: General skin exam: normal color and no rashes or lesions noted Wounds: no wounds Other: Poor skin turgor Neuro: Speech: normal speech Sensory Exam: normal sensation Other: + generalized weakness. A&O x4. Extrem: General: normal to inspection Psych: Mental Status: mental status grossly normal Affect: normal affect Other: Fair insight and judgment, pleasant Objective Data Vital Signs Vital Signs: Vital Signs - 24 hr 02/20/25 15:29 02/20/25 20:22 02/20/25 21:25 Temperature 97.9 F 97.2 F L Pulse Rate 89 95 87 Respiratory Rate 14 20 18 Blood Pressure 113/72 113/71 117/63 Pulse Oximetry 94 100 95 Oxygen Delivery Room Air 02/20/25 22:34 02/21/25 06:00 Temperature 98.3 F Pulse Rate 87 80 Respiratory Rate 18 18 Blood Pressure 105/57 L Pulse Oximetry 95 95 Oxygen Delivery Room Air Intake/Output Intake/Output: Intake & Output 02/18/25 02/19/25 02/20/25 02/21/25 23:59 23:59 23:59 23:59 Intake Total 50 1220 Output Total 850 Balance 50 370 Meds/Results Medications: Active Medications Generic Name Dose Route Start Last Admin Trade Name Freq PRN Reason Stop Dose Admin Acetaminophen 650 mg 02/20/25 19:03 Acetaminophen 325 Mg Tablet PO Q4H PRN Mild Pain (1-3) or Fever Hydrocodone Bitart/Acetaminophen 1 tab 02/20/25 19:03 Hydrocodone/Acetaminophen (*Crx) 5-325 Mg Tablet PO Q4H PRN Pain Rated 4-6 Hydrocodone Bitart/Acetaminophen 1 tab 02/20/25 23:15 02/21/25 09:21 Hydrocodone/Acetaminophen (*Crx) 5-325 Mg Tablet PO 1 tab BID MYA Administration Artificial Tears 1 drop 02/20/25 23:20 02/21/25 09:29 Artificial Tears Ophth Soln 15 Ml Bottle EACH EYE Not Given TID [facility] Aspirin 81 mg 02/21/25 09:00 02/21/25 09:20 Aspirin 81 Mg Chewable Tablet PO 81 mg DAILY MYA Administration Atorvastatin Calcium 80 mg 02/20/25 23:20 02/20/25 23:20 Atorvastatin 40 Mg Tablet PO 80 mg HS MYA Administration Ergocalciferol 1,250 mcg 02/21/25 09:00 Ergocalciferol (Vitamin D2) 1,250 Mcg (50,000 Units) Capsule PO DAILY MYA Erythromycin 1 applic 02/21/25 05:00 02/21/25 09:21 Erythromycin Ophth Ointment 1 Gm Tube EACH EYE 02/26/25 04:59 1 applic Q4HWA MYA Administration Ferrous Sulfate 325 mg 02/21/25 09:00 02/21/25 09:21 Ferrous Sulfate 325 Mg Tablet PO 325 mg DAILY MYA Administration Furosemide 40 mg 02/21/25 09:00 02/21/25 09:21 Furosemide 40 Mg Tablet PO 40 mg BID MYA Administration Guaifenesin 600 mg 02/20/25 23:08 Guaifenesin 12 Hr 600 Mg Tabcr PO BID PRN Congestion Sodium Chloride 1,000 mls @ 100 mls/hr 02/20/25 19:05 02/21/25 05:59 Normal Saline Iv IV CONT 100 mls/hr .Q10H MYA Administration Cefepime HCl 2 gm/ Sodium 50 mls @ 100 mls/hr 02/21/25 09:00 02/21/25 09:20 Chloride IVPB 100 mls/hr Q12HR MYA Administration Metronidazole 500 mg in 100 mls @ 100 mls/hr 02/21/25 06:00 02/21/25 05:59 Flagyl 500 Mg/Iso Soln 100 Ml IVPB 100 mls/hr Q8H MYA Administration Methimazole 5 mg 02/21/25 09:00 02/21/25 09:21 Methimazole 5 Mg Tab PO 5 mg DAILY MYA Administration Miscellaneous Information 1 each 02/21/25 00:01 Clarify Vitamin D--Duplicate Orders, Is It Supposed To Be Ergocalciferol 50,000 Units Week XX 03/23/25 00:00 CLARIFY MYA Miscellaneous Information 1 each 02/20/25 23:22 Central Supply Item XX 02/21/25 23:21 PRN PRN Informational Morphine Sulfate 2 mg 02/20/25 19:03 Morphine Sulfate (*Crx) 4 Mg/Ml Inj IV PUSH Q2H PRN Pain Rated 7-10 Non-Formulary Medication 1,250 mcg 02/27/25 09:00 Cholecalciferol (Vitamin D3) [Decara] PO 03/29/25 08:59 WEEKLY MYA Olanzapine 7.5 mg 02/20/25 23:20 02/20/25 23:20 Olanzapine 2.5 Mg Tablet PO 7.5 mg HS MYA Administration Ondansetron HCl 4 mg 02/20/25 19:03 Ondansetron Inj 4 Mg/2 Ml Vial IV PUSH Q4H PRN Nausea Polyethylene Glycol 17 gm 02/20/25 23:08 Polyethylene Glycol 3350 17 Gm Powd.Pack PO DAILY PRN Constipation Sacubitril/Valsartan 1 tab 02/20/25 23:20 02/21/25 09:22 Sacubitril/Valsartan 24-26 Mg Tablet PO 1 tab Q12HR MYA Administration Sertraline HCl 75 mg 02/21/25 09:00 02/21/25 09:22 Sertraline Hcl 25 Mg Tablet PO 75 mg DAILY MYA Administration Sucralfate 1 gm 02/20/25 23:20 02/21/25 05:59 Sucralfate 1 Gm Tablet PO 1 gm ACHS MYA Administration Venlafaxine HCl 75 mg 02/20/25 23:20 02/21/25 09:22 Venlafaxine Hcl 75 Mg Tablet PO 75 mg BID MYA Administration Radiology Results: ITS Impressions Chest X-Ray 02/20/25 18:44 Impression: No acute cardiopulmonary abnormality. Abdomen/Pelvis CT 02/21/25 08:48 IMPRESSION: 1. Bilateral inguinal hernias containing fat. Labs Labs: Laboratory Results - last 24 hr 02/20/25 02/20/25 02/20/25 15:43 15:43 15:43 WBC 17.4 H RBC 5.06 Hgb 15.8 D Hct 46.5 MCV 91.9 MCH 31.2 MCHC 34.0 RDW 16.0 H Plt Count 280 MPV 9.4 Immature Gran % (Auto) 1.3 H Neut % (Auto) 63.3 Lymph % (Auto) 23.5 [place] % (Auto) 6.6 Eos % (Auto) 5.1 H Baso % (Auto) 0.2 Lymph # (Auto) 4.09 H [place] # (Auto) 1.1 H Eos # (Auto) 0.9 H Baso # (Auto) 0.0 Abs Immat Gran (auto) 0.23 H Absolute Neuts (auto) 11.0 H Absolute Nucleated RBC 0.000 Nucleated RBC % 0.0 PT 14.7 INR 1.1 APTT 26.1 Sodium 136 L Potassium 3.5 Chloride 99 Carbon Dioxide 25 Anion Gap 12 BUN 52 H D Creatinine 1.36 H Estim Creat Clear Calc 40 Estimated GFR 51 L Glucose 120 H Lactic Acid 1.4 Calcium 9.3 Phosphorus 3.2 Cancelled Magnesium 2.9 H Cancelled Total Bilirubin 0.5 AST 37 ALT 30 Alkaline Phosphatase 121 Total Protein 7.5 Albumin 4.1 TSH (Reflex) Urine Color Urine Appearance Urine pH Ur Specific [place] Urine Protein Urine Glucose (UA) Urine Ketones Ur Blood (Man) Urine Nitrate Urine Bilirubin Urine Urobilinogen Add Ur Microanalysis Leukocyte Esterase Rfl Urine RBC Urine WBC Ur Squamous Epith Cells Urine Bacteria Urine Casts C. difficile (PCR) Influenza A (RT-PCR) Influenza B (RT-PCR) RSV (RT-PCR) SARS-CoV-2 RNA (RT-PCR) 02/20/25 02/20/25 02/20/25 16:32 17:42 18:11 WBC RBC Hgb Hct MCV MCH MCHC RDW Plt Count MPV Immature Gran % (Auto) Neut % (Auto) Lymph % (Auto) [place] % (Auto) Eos % (Auto) Baso % (Auto) Lymph # (Auto) [place] # (Auto) Eos # (Auto) Baso # (Auto) Abs Immat Gran (auto) Absolute Neuts (auto) Absolute Nucleated RBC Nucleated RBC % PT INR APTT Sodium Potassium Chloride Carbon Dioxide Anion Gap BUN Creatinine Estim Creat Clear Calc Estimated GFR Glucose Lactic Acid Calcium Phosphorus Magnesium Total Bilirubin AST ALT Alkaline Phosphatase Total Protein Albumin TSH (Reflex) Urine Color Yellow Urine Appearance Clear Urine pH 5.0 Ur Specific [place] 1.016 Urine Protein Negative Urine Glucose (UA) Negative Urine Ketones Trace H Ur Blood (Man) Negative Urine Nitrate Negative Urine Bilirubin Negative Urine Urobilinogen 0.2 Add Ur Microanalysis Reviewed Leukocyte Esterase Rfl 1+ H Urine RBC 0-2 Urine WBC 0-5 Ur Squamous Epith Cells None seen Urine Bacteria None seen Urine Casts 6-10 C. difficile (PCR) Negative Influenza A (RT-PCR) Negative Influenza B (RT-PCR) Negative RSV (RT-PCR) Negative SARS-CoV-2 RNA (RT-PCR) Negative 02/21/25 04:28 WBC 12.1 H RBC 4.76 Hgb 15.5 Hct 45.8 MCV 96.2 MCH 32.6 MCHC 33.8 RDW 17.4 H Plt Count 243 MPV 9.5 Immature Gran % (Auto) 1.3 H Neut % (Auto) 60.3 Lymph % (Auto) 26.6 [place] % (Auto) 6.8 Eos % (Auto) 4.6 H Baso % (Auto) 0.4 Lymph # (Auto) 3.21 H [place] # (Auto) 0.8 H Eos # (Auto) 0.6 H Baso # (Auto) 0.1 Abs Immat Gran (auto) 0.16 H Absolute Neuts (auto) 7.3 H Absolute Nucleated RBC 0.000 Nucleated RBC % 0.0 PT INR APTT Sodium 137 Potassium 3.3 L Chloride 106 Carbon Dioxide 19 L Anion Gap 12 BUN 37 H D Creatinine 0.99 Estim Creat Clear Calc 58 Estimated GFR > 60 Glucose 90 Lactic Acid Calcium 9.0 Phosphorus Magnesium 3.0 H Total Bilirubin AST ALT Alkaline Phosphatase Total Protein Albumin TSH (Reflex) 1.250 Urine Color Urine Appearance Urine pH Ur Specific [place] Urine Protein Urine Glucose (UA) Urine Ketones Ur Blood (Man) Urine Nitrate Urine Bilirubin Urine Urobilinogen Add Ur Microanalysis Leukocyte Esterase Rfl Urine RBC Urine WBC Ur Squamous Epith Cells Urine Bacteria Urine Casts C. difficile (PCR) Influenza A (RT-PCR) Influenza B (RT-PCR) RSV (RT-PCR) SARS-CoV-2 RNA (RT-PCR) Quality VTE Prophylaxis VTE prophylaxis: mechanical ordered
[2025-02-21] MEDS: ARTIFICIAL TEARS OPHTH SOLN 15 ML BOTTLE 1 DROP EACH EYE ×2 (13:19→16:55)
[2025-02-21 14:00] VITALS: BP 100/52; PULSE 79; RESP 18; TEMP 36.4; O2SAT 98
[2025-02-21 20:00] VITALS: PULSE 70; RESP 18; O2SAT 98
[2025-02-21 20:12] VITALS: BP 104/52; PULSE 70; RESP 18; TEMP 36.5; O2SAT 98
[2025-02-21] MEDS: ATORVASTATIN 40 MG TABLET 80 MG PO (21:35)
[2025-02-22] MEDS: metroNIDAZOLE 500 MG/ISO 100ML 500 MG/100 ML BAG 100 MG IVPB (05:13)
[2025-02-22] MEDS: ERYTHROMYCIN OPHTH OINTMENT 1 GM TUBE 1 APPLIC EACH EYE ×5 (05:13→20:53)
[2025-02-22 05:31] LABS: Hematocrit 43.9 % (42.0-52.0); Hemoglobin 14.4 g/dL (14.0-18.0); Mean Corpuscular HGB Conc 32.8 g/dl (32-36); Mean Corpuscular Hemoglobin 31.9 pg (26-34); Mean Corpuscular Volume 97.1 fl (80-100); Platelet Count Result 219 k/mm3 (150-375); Red Blood Count 4.52 M/mm3 (4.6-6.20); White Blood Count 12.3 K/mm3 (4.5-10.0)
[2025-02-22 05:45] LABS: Anion Gap 7 mmol/L (4-12); Blood Urea Nitrogen 20 mg/dL (9-20); Calcium 8.5 mg/dL (8.4-10.2); Carbon Dioxide 22 mmol/L (22-30); Chloride 108 mmol/L (98-107); Estimated CRCL calculation 70 ml/min; Estimated Glomerular Filt Rate > 60; Glucose 99 mg/dL (65-110); Potassium 3.5 mmol/L (3.4-5.0); Sodium 137 mmol/L (137-145)
[2025-02-22 06:00] VITALS: BP 131/61; PULSE 81; RESP 16; TEMP 36.3; O2SAT 92
[2025-02-22] MEDS: SUCRALFATE 1 GM TABLET PO ×4 (06:07→20:52)
[2025-02-22] MEDS: SODIUM CHLORIDE 0.9% IV 1,000 ML 100 ML IV CONT ×2 (07:25→19:00)
[2025-02-22] MEDS: SERTRALINE HCL 25 MG TABLET 75 MG PO (08:00)
[2025-02-22] MEDS: ARTIFICIAL TEARS OPHTH SOLN 15 ML BOTTLE 1 DROP EACH EYE ×3 (08:00→17:41)
[2025-02-22] MEDS: VENLAFAXINE HCL 75 MG TABLET PO ×2 (08:00→17:41)
[2025-02-22] MEDS: SACUBITRIL/VALSARTAN 24-26 MG TABLET 1 TAB PO ×2 (08:00→20:52)
[2025-02-22] MEDS: FUROSEMIDE 40 MG TABLET PO ×2 (08:00→17:41)
[2025-02-22] MEDS: HYDROcodone/acetaminophen (*CRX) 5-325 MG TABLET 1 TAB PO ×2 (08:01→17:41)
[2025-02-22] MEDS: CEFEPIME 2 GM in SODIUM CHLORIDE 0.9% IV 50 ML 100 ML IVPB (08:01)
[2025-02-22] MEDS: ASPIRIN 81 MG CHEWABLE TABLET PO (08:01)
[2025-02-22] MEDS: FERROUS SULFATE 325 MG TABLET PO (08:01)
[2025-02-22] MEDS: ERGOCALCIFEROL (VITAMIN D2) 1,250 MCG (50,000 UNITS) CAPSULE 1250 MCG PO (08:31)
--- NOTE | 2025-02-22 09:16 | PM.IMPN ---
Progress Note: A&P Assessment and Plan (1) Diarrhea: Qualifiers: Diarrhea type: unspecified type Qualified Code(s): R19.7 - Diarrhea, unspecified Code(s): R19.7 - Diarrhea, unspecified Status: Acute Assessment and Plan: Profuse diarrhea following antibiotic course for UTI. C diff negative on 02/20. Concern for acute dehydration given BRIAN and with increased hemoglobin compared to his baseline. Lactic 1.4, pre no tachycardia or tachypnea. Did not meet SIRS criteria. - fecal management system placed in the ED on 02/20 due to the large volume of diarrhea he was experiencing during their workup - obtain CT of the abdomen/pelvis to rule out diverticulitis or bowel obstruction >> per my personal review, no obstruction and under distended diffusely - viral PCR negative on 02/20 - check stool culture to rule out infectious stool - WBC 17.4, trend - IV fluids: NS 100 mL/hr - started on cefepime and Flagyl on 02/20, continued inpatient - hold home docusate stool culture ordered but not collected. CT abd completed: IMPRESSION: 1. Bilateral inguinal hernias containing fat. - will stop flagyl and cefepime - treat for UTI as reports urinary symptoms and recent uti- with microbid- rocephin iv urine culture pending- follow (2) Dehydration: Code(s): E86.0 - Dehydration Status: Acute Assessment and Plan: Mild BRIAN noted and Hgb elevated compared to baseline. Having profuse diarrhea which has likely led to patient's dehydration. Reviewed vital signs from the emergency department, no hypotension noted. - IV fluids: 2L bolus -> 100 mL/hr - monitor renal function and electrolytes, correct as needed (3) Weakness: Code(s): R53.1 - Weakness Status: Acute Assessment and Plan: Patient having generalized weakness. Likely multifactorial including recent UTI, profuse diarrhea, and acute dehydration. Currently rehydrating. If patient remains weak despite rehydration and cessation of diarrhea, consider PT/OT evaluation treatment. will order pt/ot (4) Conjunctivitis: Qualifiers: Acute conjunctivitis type: bacterial Conjunctivitis type: acute Laterality: bilateral Qualified Code(s): H10.33 - Unspecified acute conjunctivitis, bilateral Code(s): H10.9 - Unspecified conjunctivitis Status: Acute Assessment and Plan: Patient reports drainage and discomfort to his bilateral eyes for some time. No recent treatment or topical antibiotics. Clinical exam concerning for bilateral conjunctivitis. - erythromycin Q4H while awake x5 days - monitor for improvement - educated to avoid touching eyes and will need to practice hand hygiene if eyes touched (5) Dementia: Qualifiers: Dementia behavioral or psychological symptom: without behavioral, psychotic, or mood disturbance or anxiety Dementia severity: moderate Dementia type: unspecified type Qualified Code(s): F03.B0 - Unspecified dementia, moderate, without behavioral disturbance, psychotic disturbance, mood disturbance, and anxiety Code(s): F03.90 - Unspecified dementia, unspecified severity, without behavioral disturbance, psychotic disturbance, mood disturbance, and anxiety Status: Chronic Assessment and Plan: Worsening confusion, A/Ox4 upon eval for admission. Has baseline dementia. No focal deficits on exam. Likely related to infectious process/dehydration, currently having profuse diarrhea. Started on IV fluids. - monitor neuro status. pt appears alert and oriented (6) Chronic anemia: Code(s): D64.9 - Anemia, unspecified Status: Acute Assessment and Plan: Hgb baseline 8-10. Currently 15.8, likely related to acute dehydration. - transfuse if less than 7 - continue iron supplement - monitor (7) Hyperthyroidism: Code(s): E05.90 - Thyrotoxicosis, unspecified without thyrotoxic crisis or storm Status: Chronic Assessment and Plan: - check TSH - continue methimazole (8) Hypertension: Qualifiers: Hypertension type: primary hypertension Qualified Code(s): I10 - Essential (primary) hypertension Code(s): I10 - Essential (primary) hypertension Status: Chronic Assessment and Plan: - chronic, currently 113/72 - continue home Entresto - monitor Plan Diet: Heart healthy GI Prophylaxis: N/a DVT Prophylaxis: SCDs IV fluids: 2L bolus -> 100 mL/hr Lines/Tubes: Peripheral IV, fecal management system Code Status: Full code Subjective Date/time seen: 02/22/25 09:16 Interval history: 74 y/o M with PMH of chronic anemia, CAD, DVT, dementia, depression, HTN, GERD, peripheral artery disease, PE, TIA, diabetes diet controlled, and venous stasis dermatitis presents here with worsening confusion, diarrhea, and weakness. Of note, he was recently treated for a UTI and placed on Macrobid last week...Report inability to urinate, diarrhea, and lower abdominal fullness. Some concern for increased confusion, has history of dementia. Currently orientated A&Ox4. Denies associated fever, chills, body aches, blood in his stool, or abdominal pain. Denies dysuria or urinary frequency. Patient additionally has had purulence drainage from his bilateral eyes for some time. No recent treatment or topical antibiotics. Initial VS at presentation: HR 89, R 14, 113/72, and 94% on RA. ED workup showed: WBC 17.4, hemoglobin 15.8 (10.0 on 06/13/2023), coags normal, sodium 136, creatinine 1.36 and GFR 51 (1.1 and GFR >60 in 2023), glucose 120, lactic 1.4. UA showed trace ketones and 1+ leuk esterase otherwise unremarkable. Viral PCR negative. C diff negative. Even CXR showed no acute cardiopulmonary abnormality. 02/22 pt is seen and examined. He is feeling fine today, reports weakness to ro legs but exam is unremarkable. reports weakness increasing gradually. Working with PT/OT. Review of Systems Review of Systems: All systems reviewed & are unremarkable except as noted in HPI and below Exam Const: General: comfortable and no acute distress Other: , male, elderly, chronically ill-appearing HENMT: Face/Nose/Sinus: Normal nares present Mouth: Yes dry mucous membranes Eyes: Other: Injected sclera with prenatally drainage from bilateral eyes. PERRLA. EOM intact. Resp: Effort & Inspection: normal respiratory effort Auscultation: clear to auscultation bilaterally Cardio: Rate: regular rate Rhythm: regular rhythm Other: S1-S2 present without murmur, rub, ectopy GI: Other: Abdomen soft, mild tenderness in the suprapubic/mid lower abdominal region. Hyperactive bowel sounds in all quadrants. Urinary Catheter: Urinary Catheter: patent and draining Skin: General skin exam: normal color and no rashes or lesions noted Wounds: no wounds Other: Poor skin turgor Neuro: Speech: normal speech Sensory Exam: normal sensation Other: + generalized weakness. A&O x4. Extrem: General: normal to inspection Psych: Mental Status: mental status grossly normal Affect: normal affect Other: Fair insight and judgment, pleasant Objective Data Vital Signs Vital Signs: Vital Signs - 24 hr 02/21/25 14:00 02/21/25 20:00 02/21/25 20:12 Temperature 97.6 F 97.7 F Pulse Rate 79 70 70 Respiratory Rate 18 18 18 Blood Pressure 100/52 L 104/52 L Pulse Oximetry 98 98 98 Oxygen Delivery Room Air 02/22/25 06:00 02/22/25 08:19 Temperature 97.4 F L Pulse Rate 81 Respiratory Rate 16 Blood Pressure 131/61 Pulse Oximetry 92 Oxygen Delivery Room Air Intake/Output Intake/Output: Intake & Output 02/19/25 02/20/25 02/21/25 02/22/25 23:59 23:59 23:59 23:59 Intake Total 1050 3860 1340 Output Total 1700 450 Balance 1050 2160 890 Meds/Results Medications: Active Medications Generic Name Dose Route Start Last Admin Trade Name Freq PRN Reason Stop Dose Admin Acetaminophen 650 mg 02/20/25 19:03 Acetaminophen 325 Mg Tablet PO Q4H PRN Mild Pain (1-3) or Fever Hydrocodone Bitart/Acetaminophen 1 tab 02/20/25 19:03 Hydrocodone/Acetaminophen (*Crx) 5-325 Mg Tablet PO Q4H PRN Pain Rated 4-6 Hydrocodone Bitart/Acetaminophen 1 tab 02/20/25 23:15 02/22/25 08:01 Hydrocodone/Acetaminophen (*Crx) 5-325 Mg Tablet PO 1 tab BID MYA Administration Artificial Tears 1 drop 02/20/25 23:20 02/22/25 08:00 Artificial Tears Ophth Soln 15 Ml Bottle EACH EYE 1 drop TID MYA Administration Aspirin 81 mg 02/21/25 09:00 02/22/25 08:01 Aspirin 81 Mg Chewable Tablet PO 81 mg DAILY MYA Administration Atorvastatin Calcium 80 mg 02/20/25 23:20 02/21/25 21:35 Atorvastatin 40 Mg Tablet PO 80 mg HS MYA Administration Ergocalciferol 1,250 mcg 02/22/25 09:00 02/22/25 08:31 Ergocalciferol (Vitamin D2) 1,250 Mcg (50,000 Units) Capsule PO 1,250 mcg WEEKLY MYA Administration Erythromycin 1 applic 02/21/25 05:00 02/22/25 08:01 Erythromycin Ophth Ointment 1 Gm Tube EACH EYE 02/26/25 04:59 1 applic Q4HWA MYA Administration Ferrous Sulfate 325 mg 02/21/25 09:00 02/22/25 08:01 Ferrous Sulfate 325 Mg Tablet PO 325 mg DAILY MYA Administration Furosemide 40 mg 02/21/25 09:00 02/22/25 08:00 Furosemide 40 Mg Tablet PO 40 mg BID MYA Administration Guaifenesin 600 mg 02/20/25 23:08 Guaifenesin 12 Hr 600 Mg Tabcr PO BID PRN Congestion Sodium Chloride 1,000 mls @ 100 mls/hr 02/20/25 19:05 02/22/25 07:25 Normal Saline Iv IV CONT 100 mls/hr .Q10H MYA Administration Cefepime HCl 2 gm/ Sodium 50 mls @ 100 mls/hr 02/21/25 09:00 02/22/25 08:01 Chloride IVPB 100 mls/hr Q12HR MYA Administration Metronidazole 500 mg in 100 mls @ 100 mls/hr 02/21/25 06:00 02/22/25 06:13 Flagyl 500 Mg/Iso Soln 100 Ml IVPB Infused Q8H MYA Infusion Methimazole 5 mg 02/21/25 09:00 02/22/25 08:00 Methimazole 5 Mg Tab PO 5 mg DAILY MYA Administration Morphine Sulfate 2 mg 02/20/25 19:03 Morphine Sulfate (*Crx) 4 Mg/Ml Inj IV PUSH Q2H PRN Pain Rated 7-10 Olanzapine 7.5 mg 02/20/25 23:20 02/21/25 21:34 Olanzapine 2.5 Mg Tablet PO 7.5 mg HS MYA Administration Ondansetron HCl 4 mg 02/20/25 19:03 Ondansetron Inj 4 Mg/2 Ml Vial IV PUSH Q4H PRN Nausea Polyethylene Glycol 17 gm 02/20/25 23:08 Polyethylene Glycol 3350 17 Gm Powd.Pack PO DAILY PRN Constipation Sacubitril/Valsartan 1 tab 02/20/25 23:20 02/22/25 08:00 Sacubitril/Valsartan 24-26 Mg Tablet PO 1 tab Q12HR MYA Administration Sertraline HCl 75 mg 02/21/25 09:00 02/22/25 08:00 Sertraline Hcl 25 Mg Tablet PO 75 mg DAILY MYA Administration Sucralfate 1 gm 02/20/25 23:20 02/22/25 06:07 Sucralfate 1 Gm Tablet PO 1 gm ACHS MYA Administration Venlafaxine HCl 75 mg 02/20/25 23:20 02/22/25 08:00 Venlafaxine Hcl 75 Mg Tablet PO 75 mg BID MYA Administration Radiology Results: ITS Impressions Chest X-Ray 02/20/25 18:44 Impression: No acute cardiopulmonary abnormality. Abdomen/Pelvis CT 02/21/25 08:48 IMPRESSION: 1. Bilateral inguinal hernias containing fat. Labs Labs: Laboratory Results - last 24 hr 02/22/25 05:19 WBC 12.3 H RBC 4.52 L Hgb 14.4 Hct 43.9 MCV 97.1 MCH 31.9 MCHC 32.8 RDW 16.6 H Plt Count 219 MPV 9.6 Sodium 137 Potassium 3.5 Chloride 108 H Carbon Dioxide 22 Anion Gap 7 BUN 20 D Creatinine 0.82 Estim Creat Clear Calc 70 Estimated GFR > 60 Glucose 99 Calcium 8.5 Quality VTE Prophylaxis VTE prophylaxis: mechanical ordered
[2025-02-22 14:00] VITALS: BP 125/55; PULSE 71; RESP 16; TEMP 36.9; O2SAT 98; BMI 33.7
[2025-02-22] MEDS: FAMOTIDINE 20 MG TABLET PO (14:50)
[2025-02-22] MEDS: cefTRIAXone 1 GM in SODIUM CHLORIDE 0.9% IV 50 ML 100 ML IVPB (14:52)
[2025-02-22 20:11] VITALS: BP 134/94; PULSE 82; RESP 20; TEMP 36.1; O2SAT 90
[2025-02-22] MEDS: ATORVASTATIN 40 MG TABLET 80 MG PO (20:52)
[2025-02-23] VITALS (7 sets, daily range): BP systolic 109–138; BP diastolic 56–72; PULSE 63–86; RESP 16–20; TEMP 36.1–36.9; O2SAT 96–99
[2025-02-23] MEDS: SODIUM CHLORIDE 0.9% IV 1,000 ML 100 ML IV CONT (05:14)
[2025-02-23] MEDS: ERYTHROMYCIN OPHTH OINTMENT 1 GM TUBE 1 APPLIC EACH EYE ×4 (05:15→20:20)
[2025-02-23 05:33] LABS: Hematocrit 43.2 % (42.0-52.0); Hemoglobin 14.7 g/dL (14.0-18.0); Mean Corpuscular HGB Conc 34.0 g/dl (32-36); Mean Corpuscular Hemoglobin 31.5 pg (26-34); Mean Corpuscular Volume 92.7 fl (80-100); Platelet Count Result 243 k/mm3 (150-375); Red Blood Count 4.66 M/mm3 (4.6-6.20); White Blood Count 11.5 K/mm3 (4.5-10.0)
[2025-02-23] MEDS: SUCRALFATE 1 GM TABLET PO ×4 (05:54→20:20)
[2025-02-23 05:59] LABS: Anion Gap 7 mmol/L (4-12); Blood Urea Nitrogen 11 mg/dL (9-20); Calcium 8.4 mg/dL (8.4-10.2); Carbon Dioxide 27 mmol/L (22-30); Chloride 104 mmol/L (98-107); Estimated CRCL calculation 72 ml/min; Estimated Glomerular Filt Rate > 60; Glucose 103 mg/dL (65-110); Potassium 2.8 mmol/L (3.4-5.0); Sodium 138 mmol/L (137-145)
[2025-02-23 06:36] LABS: Magnesium 1.9 mg/dL (1.6-2.3)
[2025-02-23] MEDS: POTASSIUM CHLORIDE 20 MEQ ER TABLET 40 MEQ PO (06:50)
[2025-02-23] MEDS: POTASSIUM CHLORIDE INJ 40 MEQ in SODIUM CHLORIDE 0.9% IV 500 ML 130 MEQ IVPB (07:03)
[2025-02-23] MEDS: HYDROcodone/acetaminophen (*CRX) 5-325 MG TABLET 1 TAB PO (09:19)
[2025-02-23] MEDS: FERROUS SULFATE 325 MG TABLET PO (09:19)
[2025-02-23] MEDS: SERTRALINE HCL 25 MG TABLET 75 MG PO (09:19)
[2025-02-23] MEDS: SACUBITRIL/VALSARTAN 24-26 MG TABLET 1 TAB PO ×2 (09:19→20:20)
[2025-02-23] MEDS: FAMOTIDINE 20 MG TABLET PO (09:20)
[2025-02-23] MEDS: VENLAFAXINE HCL 75 MG TABLET PO ×2 (09:20→16:17)
[2025-02-23] MEDS: FUROSEMIDE 40 MG TABLET PO ×2 (09:20→16:17)
[2025-02-23] MEDS: ASPIRIN 81 MG CHEWABLE TABLET PO (09:20)
--- NOTE | 2025-02-23 09:37 | P.PNIM_ITS ---
Progress Note: A&P Assessment and Plan (1) Diarrhea: Qualifiers: Diarrhea type: unspecified type Qualified Code(s): R19.7 - Diarrhea, unspecified Code(s): R19.7 - Diarrhea, unspecified Status: Acute Assessment and Plan: Profuse diarrhea following antibiotic course for UTI. C diff negative on 02/20. Concern for acute dehydration given BRIAN and with increased hemoglobin compared to his baseline. Lactic 1.4, no tachycardia or tachypnea. Did not meet SIRS criteria. - fecal management system placed in the ED on 02/20 due to the large volume of diarrhea he was experiencing during their workup, removed on 02/23 as decreased output. continue to monitor. - obtain CT of the abdomen/pelvis to rule out diverticulitis or bowel obstruction and was unremarkable - viral PCR negative on 02/20 - stool culture ordered but not collected. - IV fluids discontinued as patient tolerating a diet - started on cefepime and Flagyl on 02/20, which has since been discontinued - hold home docusate Fecal management system with decreased output. Patient denies abd pain, nausea/vomiting and tolerating diet well. Will DC FMS and continue to monitor. (2) Acute kidney injury: Code(s): N17.9 - Acute kidney failure, unspecified Status: Acute Assessment and Plan: Mild BRIAN noted and Hgb elevated compared to baseline likely related to dehydration from profuse diarrhea - resolved with IV fluids which have since been discontinued - monitor renal function and electrolytes, correct as needed Resolved. (3) Weakness: Code(s): R53.1 - Weakness Status: Acute Assessment and Plan: Patient having generalized weakness. Likely multifactorial including recent UTI, profuse diarrhea, and acute dehydration. PT/OT recommending SNF placement, care coordination following (4) Conjunctivitis: Qualifiers: Acute conjunctivitis type: bacterial Conjunctivitis type: acute Laterality: bilateral Qualified Code(s): H10.33 - Unspecified acute conjunctivitis, bilateral Code(s): H10.9 - Unspecified conjunctivitis Status: Acute Assessment and Plan: Patient reports drainage and discomfort to his bilateral eyes for some time. No recent treatment or topical antibiotics. Clinical exam concerning for bilateral conjunctivitis. - erythromycin Q4H while awake x5 days - monitor for improvement - educated to avoid touching eyes and will need to practice hand hygiene if eyes touched (5) Abnormal urinalysis: Code(s): R82.90 - Unspecified abnormal findings in urine Status: Acute Assessment and Plan: Patient recently treated for UTI last week with Macrobid at his facility - UA showed trace ketones and 1+ leuk esterase otherwise unremarkable. - UC obtained and negative - romano catheter in place reportedly for retention, will need a voiding trial prior to discharge - started on rocephin on 02/22 (6) Dementia: Qualifiers: Dementia behavioral or psychological symptom: without behavioral, psychotic, or mood disturbance or anxiety Dementia severity: moderate Dementia type: unspecified type Qualified Code(s): F03.B0 - Unspecified dementia, moderate, without behavioral disturbance, psychotic disturbance, mood disturbance, and anxiety Code(s): F03.90 - Unspecified dementia, unspecified severity, without behavioral disturbance, psychotic disturbance, mood disturbance, and anxiety Status: Chronic Assessment and Plan: Worsening confusion, A/Ox3 upon eval for admission. Has baseline dementia. No focal deficits on exam. Likely related to infectious process/dehydration, currently having profuse diarrhea. - monitor neuro status. pt appears alert and oriented (7) Chronic anemia: Code(s): D64.9 - Anemia, unspecified Status: Acute Assessment and Plan: Hgb baseline 8-10. Elevated on admission at 15.8, likely related to acute dehydration. - H/H remains stable - transfuse if less than 7 - continue iron supplement - monitor (8) Hyperthyroidism: Code(s): E05.90 - Thyrotoxicosis, unspecified without thyrotoxic crisis or storm Status: Chronic Assessment and Plan: - TSH WNL - continue methimazole (9) Hypertension: Qualifiers: Hypertension type: primary hypertension Qualified Code(s): I10 - Essential (primary) hypertension Code(s): I10 - Essential (primary) hypertension Status: Chronic Assessment and Plan: - chronic - continue home Entresto - blood pressures reviewed and stable, continue to monitor Time Spent With Patient Time with patient: 25 - 35 minutes Subjective Date/time seen: 02/23/25 09:37 Interval history: 74 y/o M with PMH of chronic anemia, CAD, DVT, dementia, depression, HTN, GERD, peripheral artery disease, PE, TIA, diabetes diet controlled, and venous stasis dermatitis presents to the hospital from [facility] via EMS with worsening confusion, diarrhea, and weakness. Patient is pleasant lying comfortably in bed. He remains alert and oriented x3 at time of assessment. He has no complaints denying chest pain, shortness a breath, palpitations, nausea/vomiting, abdominal pain. Per RN the fecal management system has had decreased output thus will discontinue this and continue to monitor. Patient worked with physical therapy and occupational therapy today who recommending SNF placement, care coordination continues to follow. Review of Systems Review of Systems: All systems reviewed & are unremarkable except as noted in HPI and below Exam Narrative: AF HR 76 RR 18 Spo2 96 BP 110/64 General: male in no acute respiratory distress who is nontoxic appearing, lying semi recumbent in bed. HEENT: Normocephalic. Atraumatic. Extraocular movement intact. Sclera clear and anicteric. No facial asymmetry. Chest: Lungs are clear to auscultation bilaterally. No wheezes or crackles. CV: Heart was regular rate and rhythm. Abd: Abdomen was soft. Nontender. Nondistended. Positive bowel sounds. Fecal management system in place. : romano catheter in place with clear urine Ext: No clubbing, cyanosis, or edema. DP pulses bilaterally. Neuro: Patient is alert and oriented x3. Speech is clear. Objective Data Vital Signs Vital Signs: Vital Signs - 24 hr 02/22/25 11:39 02/22/25 11:48 02/22/25 14:00 Temperature 98.4 F Pulse Rate 71 Respiratory Rate 16 Blood Pressure 125/55 L Pulse Oximetry 98 Oxygen Delivery Room Air Room Air 02/22/25 20:00 02/22/25 20:11 02/23/25 04:05 Temperature 96.9 F L 97.0 F L Pulse Rate 82 76 Respiratory Rate 20 20 Blood Pressure 134/94 H 137/60 Pulse Oximetry 90 96 Oxygen Delivery Room Air 02/23/25 09:15 02/23/25 09:19 Temperature 98.4 F Pulse Rate 86 86 Respiratory Rate 16 16 Blood Pressure 138/72 Pulse Oximetry 98 98 Oxygen Delivery Room Air Intake/Output Intake/Output: Intake & Output 02/20/25 02/21/25 02/22/25 02/23/25 23:59 23:59 23:59 23:59 Intake Total 1050 3860 3658 1210 Output Total 1700 2150 450 Balance 1050 2160 1508 760 Meds/Results Medications: Active Medications Generic Name Dose Route Start Last Admin Trade Name Freq PRN Reason Stop Dose Admin Acetaminophen 650 mg 02/20/25 19:03 Acetaminophen 325 Mg Tablet PO Q4H PRN Mild Pain (1-3) or Fever Hydrocodone Bitart/Acetaminophen 1 tab 02/20/25 19:03 Hydrocodone/Acetaminophen (*Crx) 5-325 Mg Tablet PO Q4H PRN Pain Rated 4-6 Hydrocodone Bitart/Acetaminophen 1 tab 02/20/25 23:15 02/23/25 09:19 Hydrocodone/Acetaminophen (*Crx) 5-325 Mg Tablet PO 1 tab BID MYA Administration Artificial Tears 1 drop 02/20/25 23:20 02/23/25 09:20 Artificial Tears Ophth Soln 15 Ml Bottle EACH EYE Not Given TID MYA Aspirin 81 mg 02/21/25 09:00 02/23/25 09:20 Aspirin 81 Mg Chewable Tablet PO 81 mg DAILY MYA Administration Atorvastatin Calcium 80 mg 02/20/25 23:20 02/22/25 20:52 Atorvastatin 40 Mg Tablet PO 80 mg HS MYA Administration Diphenhydramine HCl 25 mg 02/22/25 13:04 Diphenhydramine Hcl Cap 25 Mg Capsule PO Q6H PRN Itching Ergocalciferol 1,250 mcg 02/22/25 09:00 02/22/25 08:31 Ergocalciferol (Vitamin D2) 1,250 Mcg (50,000 Units) Capsule PO 1,250 mcg WEEKLY MYA Administration Erythromycin 1 applic 02/21/25 05:00 02/23/25 09:19 Erythromycin Ophth Ointment 1 Gm Tube EACH EYE 02/26/25 04:59 1 applic Q4HWA MYA Administration Famotidine 20 mg 02/22/25 13:05 02/23/25 09:20 Famotidine 20 Mg Tablet PO 20 mg DAILY MYA Administration Ferrous Sulfate 325 mg 02/21/25 09:00 02/23/25 09:19 Ferrous Sulfate 325 Mg Tablet PO 325 mg DAILY MYA Administration Furosemide 40 mg 02/21/25 09:00 02/23/25 09:20 Furosemide 40 Mg Tablet PO 40 mg BID MYA Administration Guaifenesin 600 mg 02/20/25 23:08 Guaifenesin 12 Hr 600 Mg Tabcr PO BID PRN Congestion Sodium Chloride 1,000 mls @ 100 mls/hr 02/20/25 19:05 02/23/25 05:14 Normal Saline Iv IV CONT 100 mls/hr .Q10H MYA Administration Ceftriaxone Sodium 1 gm/ 50 mls @ 100 mls/hr 02/22/25 15:00 02/22/25 15:25 Sodium Chloride IVPB Infused Q24H MYA Infusion Potassium Chloride 40 meq/ 520 mls @ 130 mls/hr 02/23/25 06:30 02/23/25 07:03 Sodium Chloride IVPB 02/23/25 10:29 130 mls/hr ONCE ONE Administration Methimazole 5 mg 02/21/25 09:00 02/23/25 09:19 Methimazole 5 Mg Tab PO 5 mg DAILY MYA Administration Morphine Sulfate 2 mg 02/20/25 19:03 Morphine Sulfate (*Crx) 4 Mg/Ml Inj IV PUSH Q2H PRN Pain Rated 7-10 Olanzapine 7.5 mg 02/20/25 23:20 02/22/25 20:52 Olanzapine 2.5 Mg Tablet PO 7.5 mg HS MYA Administration Ondansetron HCl 4 mg 02/20/25 19:03 Ondansetron Inj 4 Mg/2 Ml Vial IV PUSH Q4H PRN Nausea Polyethylene Glycol 17 gm 02/20/25 23:08 Polyethylene Glycol 3350 17 Gm Powd.Pack PO DAILY PRN Constipation Sacubitril/Valsartan 1 tab 02/20/25 23:20 02/23/25 09:19 Sacubitril/Valsartan 24-26 Mg Tablet PO 1 tab Q12HR MYA Administration Sertraline HCl 75 mg 02/21/25 09:00 02/23/25 09:19 Sertraline Hcl 25 Mg Tablet PO 75 mg DAILY MYA Administration Sucralfate 1 gm 02/20/25 23:20 02/23/25 05:54 Sucralfate 1 Gm Tablet PO 1 gm ACHS MYA Administration Venlafaxine HCl 75 mg 02/20/25 23:20 02/23/25 09:20 Venlafaxine Hcl 75 Mg Tablet PO 75 mg BID MYA Administration Radiology Results: ITS Impressions Chest X-Ray 02/20/25 18:44 Impression: No acute cardiopulmonary abnormality. Abdomen/Pelvis CT 02/21/25 08:48 IMPRESSION: 1. Bilateral inguinal hernias containing fat. Labs Labs: Laboratory Results - last 24 hr 02/23/25 05:12 WBC 11.5 H RBC 4.66 Hgb 14.7 Hct 43.2 MCV 92.7 MCH 31.5 MCHC 34.0 RDW 16.4 H Plt Count 243 MPV 9.3 Sodium 138 Potassium 2.8 L* Chloride 104 Carbon Dioxide 27 Anion Gap 7 BUN 11 D Creatinine 0.79 Estim Creat Clear Calc 72 Estimated GFR > 60 Glucose 103 Calcium 8.4 Magnesium 1.9 Quality VTE Prophylaxis VTE prophylaxis: mechanical ordered
[2025-02-23 13:29] LABS: Anion Gap 7 mmol/L (4-12); Blood Urea Nitrogen 10 mg/dL (9-20); Calcium 8.3 mg/dL (8.4-10.2); Carbon Dioxide 25 mmol/L (22-30); Chloride 107 mmol/L (98-107); Estimated CRCL calculation 81 ml/min; Estimated Glomerular Filt Rate > 60; Glucose 132 mg/dL (65-110); Potassium 3.2 mmol/L (3.4-5.0); Sodium 139 mmol/L (137-145)
[2025-02-23] MEDS: cefTRIAXone 1 GM in SODIUM CHLORIDE 0.9% IV 50 ML 100 ML IVPB (14:23)
[2025-02-23] MEDS: ATORVASTATIN 40 MG TABLET 80 MG PO (20:19)
[2025-02-24 03:53] VITALS: BP 129/72; PULSE 66; RESP 20; TEMP 36.5; O2SAT 96
[2025-02-24 04:37] LABS: Hematocrit 43.7 % (42.0-52.0); Hemoglobin 14.8 g/dL (14.0-18.0); Mean Corpuscular HGB Conc 33.9 g/dl (32-36); Mean Corpuscular Hemoglobin 31.6 pg (26-34); Mean Corpuscular Volume 93.2 fl (80-100); Platelet Count Result 254 k/mm3 (150-375); Red Blood Count 4.69 M/mm3 (4.6-6.20); White Blood Count 14.3 K/mm3 (4.5-10.0)
[2025-02-24 04:48] LABS: Anion Gap 5 mmol/L (4-12); Blood Urea Nitrogen 9 mg/dL (9-20); Calcium 8.8 mg/dL (8.4-10.2); Carbon Dioxide 29 mmol/L (22-30); Chloride 105 mmol/L (98-107); Estimated CRCL calculation 71 ml/min; Estimated Glomerular Filt Rate > 60; Glucose 102 mg/dL (65-110); Potassium 3.6 mmol/L (3.4-5.0); Sodium 139 mmol/L (137-145)
[2025-02-24] MEDS: ERYTHROMYCIN OPHTH OINTMENT 1 GM TUBE 1 APPLIC EACH EYE ×5 (05:18→22:04)
[2025-02-24 09:00] VITALS: BP 118/76; PULSE 94
[2025-02-24] MEDS: HYDROcodone/acetaminophen (*CRX) 5-325 MG TABLET 1 TAB PO ×2 (09:01→17:05)
[2025-02-24] MEDS: FUROSEMIDE 40 MG TABLET PO ×2 (09:01→17:05)
[2025-02-24] MEDS: SACUBITRIL/VALSARTAN 24-26 MG TABLET 1 TAB PO ×2 (09:01→22:04)
[2025-02-24] MEDS: ASPIRIN 81 MG CHEWABLE TABLET PO (09:01)
[2025-02-24] MEDS: FERROUS SULFATE 325 MG TABLET PO (09:01)
[2025-02-24] MEDS: SERTRALINE HCL 25 MG TABLET 75 MG PO (09:01)
[2025-02-24] MEDS: VENLAFAXINE HCL 75 MG TABLET PO ×2 (09:01→17:06)
[2025-02-24] MEDS: FAMOTIDINE 20 MG TABLET PO (09:01)
[2025-02-24] MEDS: ARTIFICIAL TEARS OPHTH SOLN 15 ML BOTTLE 1 DROP EACH EYE ×3 (09:02→17:06)
[2025-02-24] MEDS: SUCRALFATE 1 GM TABLET PO ×2 (11:53→17:05)
[2025-02-24 14:00] VITALS: BP 100/51; PULSE 102; RESP 20; TEMP 36.2; O2SAT 95
[2025-02-24] MEDS: cefTRIAXone 1 GM in SODIUM CHLORIDE 0.9% IV 50 ML 100 ML IVPB (15:22)
[2025-02-24 16:56] VITALS: BP 109/56
[2025-02-24 19:37] VITALS: BP 95/49; PULSE 82; RESP 20; TEMP 36.6; O2SAT 97
[2025-02-24] MEDS: ATORVASTATIN 40 MG TABLET 80 MG PO (22:04)
[2025-02-24] MEDS: SUCRALFATE SUSP 100 MG/ML 10 ML UDC 1000 MG PO (22:05)
[2025-02-24 23:49] VITALS: BP 109/52; PULSE 82; RESP 18; TEMP 36.5; O2SAT 97
[2025-02-25 04:14] VITALS: BP 117/58; PULSE 81; RESP 20; TEMP 36.7; O2SAT 97
[2025-02-25 04:34] LABS: Hematocrit 41.0 % (42.0-52.0); Hemoglobin 14.0 g/dL (14.0-18.0); Mean Corpuscular HGB Conc 34.1 g/dl (32-36); Mean Corpuscular Hemoglobin 31.9 pg (26-34); Mean Corpuscular Volume 93.4 fl (80-100); Platelet Count Result 224 k/mm3 (150-375); Red Blood Count 4.39 M/mm3 (4.6-6.20); White Blood Count 13.2 K/mm3 (4.5-10.0)
[2025-02-25 05:09] LABS: Anion Gap 3 mmol/L (4-12); Blood Urea Nitrogen 14 mg/dL (9-20); Calcium 8.7 mg/dL (8.4-10.2); Carbon Dioxide 29 mmol/L (22-30); Chloride 106 mmol/L (98-107); Estimated CRCL calculation 78 ml/min; Estimated Glomerular Filt Rate > 60; Glucose 118 mg/dL (65-110); Potassium 3.3 mmol/L (3.4-5.0); Sodium 138 mmol/L (137-145)
[2025-02-25] MEDS: ERYTHROMYCIN OPHTH OINTMENT 1 GM TUBE 1 APPLIC EACH EYE ×2 (06:41→09:49)
[2025-02-25] MEDS: SUCRALFATE SUSP 100 MG/ML 10 ML UDC 1000 MG PO ×2 (06:41→12:27)
[2025-02-25] MEDS: ARTIFICIAL TEARS OPHTH SOLN 15 ML BOTTLE 1 DROP EACH EYE (09:49)
[2025-02-25] MEDS: SERTRALINE HCL 25 MG TABLET 75 MG PO (09:49)
[2025-02-25] MEDS: FERROUS SULFATE 325 MG TABLET PO (09:49)
[2025-02-25] MEDS: HYDROcodone/acetaminophen (*CRX) 5-325 MG TABLET 1 TAB PO (09:50)
[2025-02-25] MEDS: FAMOTIDINE 20 MG TABLET PO (09:50)
[2025-02-25] MEDS: FUROSEMIDE 40 MG TABLET PO (09:50)
[2025-02-25] MEDS: ASPIRIN 81 MG CHEWABLE TABLET PO (09:50)
[2025-02-25] MEDS: VENLAFAXINE HCL 75 MG TABLET PO (09:50)
[2025-02-25] MEDS: SACUBITRIL/VALSARTAN 24-26 MG TABLET 1 TAB PO (09:50)
[2025-02-25] MEDS: TAMSULOSIN HCL 0.4 MG CAPSULE PO (10:07)
--- NOTE | 2025-02-25 10:09 | P.DS_ITS ---
DS: Admitting Diagnosis Discharge Date 02/25 Admitting Diagnosis uti, weakness, confusion DS: Discharge Diagnosis Discharge Diagnosis (1) Diarrhea: Qualifiers: Diarrhea type: unspecified type Qualified Code(s): R19.7 - Diarrhea, unspecified Code(s): R19.7 - Diarrhea, unspecified Status: Acute (2) Acute kidney injury: Code(s): N17.9 - Acute kidney failure, unspecified Status: Acute (3) Weakness: Code(s): R53.1 - Weakness Status: Acute (4) Conjunctivitis: Qualifiers: Conjunctivitis type: acute Acute conjunctivitis type: bacterial Laterality: bilateral Qualified Code(s): H10.33 - Unspecified acute conjunctivitis, bilateral Code(s): H10.9 - Unspecified conjunctivitis Status: Acute (5) Abnormal urinalysis: Code(s): R82.90 - Unspecified abnormal findings in urine Status: Acute (6) Dementia: Qualifiers: Dementia type: unspecified type Dementia severity: moderate Dementia behavioral or psychological symptom: without behavioral, psychotic, or mood disturbance or anxiety Qualified Code(s): F03.B0 - Unspecified dementia, moderate, without behavioral disturbance, psychotic disturbance, mood disturbance, and anxiety Code(s): F03.90 - Unspecified dementia, unspecified severity, without behavioral disturbance, psychotic disturbance, mood disturbance, and anxiety Status: Chronic (7) Chronic anemia: Code(s): D64.9 - Anemia, unspecified Status: Acute (8) Hyperthyroidism: Code(s): E05.90 - Thyrotoxicosis, unspecified without thyrotoxic crisis or storm Status: Chronic (9) Hypertension: Qualifiers: Hypertension type: primary hypertension Qualified Code(s): I10 - Essential (primary) hypertension Code(s): I10 - Essential (primary) hypertension Status: Chronic DS: Summary Hospital Course Hospital Course: 74 y/o M with PMH of chronic anemia, CAD, DVT, dementia, depression, HTN, GERD, peripheral artery disease, PE, TIA, diabetes diet controlled, and venous stasis dermatitis presents to the hospital from [facility] via EMS with worsening confusion, diarrhea, and weakness. Several issues were addressed: # Diarrhea: Profuse diarrhea following antibiotic course for UTI. C diff negative on 02/20. Concern for acute dehydration given BRIAN and with increased hemoglobin compared to his baseline. Lactic 1.4, no tachycardia or tachypnea. Did not meet SIRS criteria. - fecal management system placed in the ED on 02/20 due to the large volume of diarrhea he was experiencing during their workup, removed on 02/23 as decreased output. continue to monitor. - obtain CT of the abdomen/pelvis to rule out diverticulitis or bowel obstruction and was unremarkable. Initially, he was started on cefepime and Flagyl on 02/20, which has since been discontinued based on negative CT scan - viral PCR negative on 02/20 - stool culture ordered but not collected. - IV fluids discontinued as patient tolerating a diet Fecal management system with decreased output. Patient denies abd pain, nausea/vomiting and tolerating diet well. Will DC FMS and continue to monitor. # Acute kidney injury: Mild BRIAN noted and Hgb elevated compared to baseline likely related to dehydration from profuse diarrhea - resolved with IV fluids which have since been discontinued Resolved. # Weakness: Patient having generalized weakness. Likely multifactorial including recent UTI, profuse diarrhea, and acute dehydration. PT/OT recommending SNF placement, care coordination following. Pt reports that he cannot do anything as he is too weak but based on PT/OT notes as well as report, pt IS able to do things for himself. Discussed in great details as there could be an element of depression as pt is upset because he is not as active as he was. He declined any antidepression therapy at this time but knows to address it with his PCP if needed. # Conjunctivitis: Patient reports drainage and discomfort to his bilateral eyes for some time. No recent treatment or topical antibiotics. Clinical exam concerning for bilateral conjunctivitis. - erythromycin Q4H while awake x5 days- started on 02/20. finishing up course today - monitor for improvement - educated to avoid touching eyes and will need to practice hand hygiene if eyes touched # Abnormal urinalysis: Patient recently treated for UTI last week with Macrobid at his facility - UA showed trace ketones and 1+ leuk esterase otherwise unremarkable. - UC obtained and negative - romano catheter in place reportedly for retention, will need a voiding trial prior to discharge. Will start flomax. If unable to d/c romano today, ok to discharge with Romano with plan to discontinue once at his facility. - started on rocephin on 02/22- will downgrade to Cefdinir 300mg bid to complete the course. Will need 6 more days-12 total doses. # Dementia: Worsening confusion, A/Ox3 upon eval for admission. Has baseline dementia. No focal deficits on exam. Likely related to infectious process/dehydration, currently having profuse diarrhea. pt appears alert and oriented -reports still confused but answers all orientation questions appropriately. # Chronic anemia: Hgb baseline 8-10. Elevated on admission at 15.8, likely related to acute dehydration. - H/H remains stable - transfuse if less than 7 - continue iron supplement - monitor # Hyperthyroidism: - TSH WNL - continue methimazole # Hypertension: - chronic - continue home Entresto - blood pressures reviewed and stable, continue to monitor Status at Discharge Functional status at discharge: uses cane/walker Overall status at discharge: patient is progressing back to baseline Time Spent with Patient Time attestation: Total time spent providing and/or coordinating discharge services: Time spent: Greater than 30 minutes Exam Narrative: General: male in no acute respiratory distress who is nontoxic appearing, lying semi recumbent in bed. HEENT: Normocephalic. Atraumatic. Extraocular movement intact. Sclera clear and anicteric. No facial asymmetry. Chest: Lungs are clear to auscultation bilaterally. No wheezes or crackles. CV: Heart was regular rate and rhythm. Abd: Abdomen was soft. Nontender. Nondistended. Positive bowel sounds. Fecal management system in place. : romano catheter in place with clear urine Ext: No clubbing, cyanosis, or edema. DP pulses bilaterally. Neuro: Patient is alert and oriented x3. Speech is clear. Const: General: comfortable and no acute distress HENMT: Face/Nose/Sinus: Normal nares present Eyes: Other: Injected sclera with prenatally drainage from bilateral eyes. PERRLA. EOM intact. Resp: Effort & Inspection: normal respiratory effort Auscultation: clear to auscultation bilaterally Cardio: Rate: regular rate Rhythm: regular rhythm Other: S1-S2 present without murmur, rub, ectopy GI: Other: Abdomen soft, mild tenderness in the suprapubic/mid lower abdominal region. Hyperactive bowel sounds in all quadrants. Urinary Catheter: Urinary Catheter: patent and draining Skin: General skin exam: normal color and no rashes or lesions noted Wounds: no wounds Other: Poor skin turgor Neuro: Speech: normal speech Sensory Exam: normal sensation Other: + generalized weakness. A&O x4. Extrem: General: normal to inspection Psych: Mental Status: mental status grossly normal Affect: normal affect Other: Fair insight and judgment, pleasant DS: Data Data Completed and Pending Completed studies during hospitalization: ct abd Labs on day of discharge: Labs from last 24 hours 02/25/25 04:21 WBC 13.2 H RBC 4.39 L Hgb 14.0 Hct 41.0 L MCV 93.4 MCH 31.9 MCHC 34.1 RDW 16.5 H Plt Count 224 MPV 9.3 Sodium 138 Potassium 3.3 L Chloride 106 Carbon Dioxide 29 Anion Gap 3 L BUN 14 D Creatinine 0.73 Estim Creat Clear Calc 78 Estimated GFR > 60 Glucose 118 H Calcium 8.7 Discharge Plan Discharge Attending physician on discharge: Jose Rodgers Consulting providers: Alexa Landeros; Carlyn Wade Discharging Clinician: Sierra Mojica Patient Disposition: SNF Activity: july shower Diet: heart healthy Discharge Instructions: You were admitted for Weakness. You worked with PT/OT and did well. we discussed, please keep an eye on depression and if needed, discuss if therapy needed with your PCP. # Conjunctivitis: you completed therapy today, 02/25 please to avoid touching eyes and will need to practice hand hygiene if eyes touched. keep area clean and dry. You were treated with antibiotics for UTI with IV antibiotics. 02/25- will change antibiotics to Cefdinir 300mg twice a day to complete the course. Will need 6 more days-12 total doses. - romano catheter in place reportedly for retention. Will start flomax. If unable to d/c romano today, ok to discharge with Romano with plan to discontinue once at his facility. - Patient Language: Faroese Stand Alone Forms: General Discharge Information, Snf Discharge Follow-up/Referrals: Patricia,Nury Pond [Primary Care Provider] - 2 Weeks Discharge Medications: New cefdinir 300 mg capsule 300 mg PO Q12H Qty: 12 0RF tamsulosin 0.4 mg Capsule 0.4 mg PO QAM Qty: 30 0RF Continued ferrous sulfate 325 mg (65 mg iron) Tablet,Delayed Release (Dr/Ec) 325 mg PO DAILY Qty: 90 1RF sacubitril-valsartan [Entresto] 24-26 mg Tablet 1 tablet PO Q12HR Qty: 60 5RF atorvastatin 80 mg Tablet 80 mg PO HS aspirin 81 mg Tablet,Chewable 81 mg PO DAILY acetaminophen 325 mg Tablet,Chewable 650 mg PO Q6H PRN (Reason: Pain (Scale Score 1-3)) polyethylene glycol 3350 17 gram/dose Powder 17 g PO DAILY PRN (Reason: Constipation) venlafaxine 75 mg Tablet 75 mg PO BID Rx Instructions: before breakfast and dinner Refresh Classic (PF) 1.4-0.6 % Dropperette 1 drp EACH EYE TID sucralfate 1 gram tablet 1 g PO ACHS olanzapine 2.5 mg tablet 7.5 mg PO HS methimazole 5 mg tablet 5 mg PO DAILY Qty: 30 0RF sertraline 50 mg tablet 75 mg PO DAILY guaifenesin [Mucinex] 600 mg tablet extended release 12hr 600 mg PO BID PRN (Reason: congestion) cholecalciferol (vitamin D3) [Decara] 1,250 mcg (50,000 unit) capsule 1,250 mcg PO WEEKLY Patient Comments: takes on Mondays, weekly docusate sodium 100 mg capsule 100 mg PO BID ergocalciferol (vitamin D2) [Vitamin D2] 1,250 mcg (50,000 unit) capsule 1,250 mcg PO DAILY nystatin [Nyamyc] 100,000 unit/gram powder 1 applic TOPICAL QID PRN (Reason: erythematous condition) furosemide 20 mg tablet 40 mg PO BID Patient Comments: [id number] and [id number] Changed hydrocodone-acetaminophen 5-325 mg tablet 1 tablet PO BID Qty: 9 0RF Patient Comments: chronic pain Date of admission: 02/23/25 09:53 Primary Care Provider: MarcialDejah Admitting Provider: Farhad Kim Attending physician on admission: Farhad Kim Condition: Stable Quality VTE Prophylaxis VTE prophylaxis: mechanical ordered Hospitalist MIPS Heart Failure (Exclusion) Patient has history of Heart Transplant or Left Ventricular Assistive Device?: No IF YES, STOP HERE Heart Failure (Qualifier) Patient has current or prior documentation of LVEF less than or equal to 40%, or mod/servere depressed LVSF?: No IF NO, STOP HERE
[2025-02-25 13:35] VITALS: BP 105/59; PULSE 96; RESP 16; TEMP 36.8; O2SAT 96
== END 2025-02-25 15:10 | DRG 394 ==
LOC: ANHED 19:03 → ANH2MED 20:00
PROVIDERS: Internal Medicine; Student in an Organized Health Care Education/Training Program; Admitting Provider Internal Medicine; Emergency Provider Emergency Medicine; PCP Internal Medicine; Visit Provider Nurse Practitioner
DX: K52.1 Toxic gastroenteritis and colitis (principal); N17.9 Acute kidney failure, unspecified; E86.0 Dehydration; T36.8X5A Adverse effect of other systemic antibiotics, initial encounter; H10.9 Unspecified conjunctivitis; D64.9 Anemia, unspecified; F03.90 Unspecified dementia, unspecified severity, without behavioral disturbance, psychotic disturbance, mood disturbance, and anxiety; I10 Essential (primary) hypertension; I25.10 Atherosclerotic heart disease of native coronary artery without angina pectoris; K21.9 Gastro-esophageal reflux disease without esophagitis; I73.9 Peripheral vascular disease, unspecified; I87.2 Venous insufficiency (chronic) (peripheral); Z86.73 Personal history of transient ischemic attack (TIA), and cerebral infarction without residual deficits; Z86.718 Personal history of other venous thrombosis and embolism
CPT/HCPCS: 36415; 71046; 74176; 80048; 80053; 81001; 83605; 83735; 84100; 84443; 85025; 85027; 85610; 85730; 87086; 87493; 87637; 93005; 96361; 96365; 96366; 96367; 96375; 97110; 97161; 97166; 97530; 97535; 99285; A9270; G0378; J0692; J0696; J1836; J3480; J7030; J7040; J7120

== ENCOUNTER 2025-03-09 11:49 | Inpatient (IN) | payer OTHER, MEDICAID, SELFPAY ==
[2025-03-09] VITALS (23 sets, daily range): BP systolic 85–133; BP diastolic 52–97; PULSE 81–120; RESP 12–28; TEMP 36.4–36.8; O2SAT 94–100; BMI 27.8
--- NOTE | ~2025-03-09 | XR_ITS ---
EXAM/PROCEDURE: XR barium swallow modified HISTORY: CVA COMPARISON: None TECHNIQUE: Modified barium swallow Fluoroscopy time: 2 minutes DAP: 2.226 Hughes per square centimeter Number of images: 1 IMPRESSION: No aspiration observed on this limited study. See speech therapist's note for complete evaluation. Reviewed, dictated and finalized at location A. MONITOR IMPRESSION: No aspiration observed on this limited study. See speech therapist's note for c omplete evaluation.
--- NOTE | ~2025-03-09 | MR_ITS ---
EXAM/PROCEDURE: MR brain/brain stem wo/w con HISTORY: remote CVA on CT, general decline, confusion COMPARISON: CT exam from March 09 TECHNIQUE: Pre and postcontrast enhanced multiplanar brain MRI performed FINDINGS: No restricted diffusion or acute ischemic event. No mass mass effect or hemorrhage. Mild diffuse volume loss and moderately extensive diffuse periventricular T2 weighted hyperintense white matter changes. Small subcortical U fiber hyperintense T2-weighted signal change in the left occipital lobe image 18 series 5. No abnormal enhancing lesions or masses on postcontrast series. Scattered areas of subcentimeter basal ganglia T2 weighted hyperintense foci probably representing old lacunar infarctions. Vascular flow voids patent at skull base. Periorbital paranasal calvarial structures appear normal. IMPRESSION: 1. No acute ischemic event, mass or hemorrhage. No abnormal enhancing lesions or masses. 2. Moderately advanced chronic microvascular ischemic appearing changes and probable old bilateral basal ganglia lacunar infarctions. Reviewed, dictated and finalized at location A. FOOD FRY COOK IMPRESSION: 1. No acute ischemic event, mass or hemorrhage. No abnormal enhancing lesions o r masses. 2. Moderately advanced chronic microvascular ischemic appearing changes and pro bable old bilateral basal ganglia lacunar infarctions.
--- NOTE | ~2025-03-09 | CT_ITS ---
EXAM/PROCEDURE: CT abdomen pelvis wo con HISTORY: AMS, abd pain? COMPARISON: None available. TECHNIQUE: Noncontrast CT of the abdomen and pelvis FINDINGS: The bowel gas pattern is nonobstructive with no free air free fluid or pneumatosis. Moderate amount of stool extends of the cecum. Indwelling urethral catheter present with decompressed urinary bladder. Small amount of air in the urinary bladder probably associated with catheterization, although infection might have a similar appearance. No hydroureteronephrosis. Gallbladder removed. Pancreas spleen stomach and adrenal glands with no focal acute process. No bulky lymphadenopathy or masses seen. No AAA. In the lower chest, mild bibasilar fibrotic and/or atelectatic changes. Diffuse degenerative changes throughout the bones which otherwise appear intact. IMPRESSION: Directed noncontrast exam demonstrating no focal acute process to explain source of patient's symptoms. See other comments above. Reviewed, dictated and finalized at location A. LE COVERER IMPRESSION: Directed noncontrast exam demonstrating no focal acute process to explain sourc e of patient's symptoms. See other comments above.
--- NOTE | ~2025-03-09 | XR_ITS ---
EXAMINATION: XR chest 1V portable DATE: 03/09/2025 12:43 INDICATION: Hypotension. Altered mental status. TECHNIQUE: frontal view of the chest was obtained. COMPARISON: CT dated 02/20/2025 FINDINGS: Mild elevation the left hemidiaphragm with mild linear discoid atelectasis at the left lung base. No other airspace opacities, pulmonary edema, pleural effusion or pneumothorax. Heart size is normal. Multiple calcified nodules project over the left upper quadrant corresponding to calcified splenic gran ulomata. IMPRESSION: 1. Mild left basilar discoid atelectasis with mild elevation of the left hemidiaphragm. Reviewed, dictated and finalized at location A. OTER IMPRESSION: 1. Mild left basilar discoid atelectasis with mild elevation of the left hemidi aphragm.
--- NOTE | ~2025-03-09 | CT_ITS ---
EXAMINATION: CT brain wo con, 03/09/2025 13:24 LIPSTICK MOLDER HISTORY: unresponsive COMPARISON: No comparisons available. Technique: Axial images obtained of the brain without contrast. One or more of the following dose reduction techniques were used: automated exposure control, adjustment of the mA and/or kV according to patient size, use of iterative reconstruction technique. Findings: There are remote bilateral basal ganglion lacunar infarcts. No acute infarct or hemorrhage. No midline shift or mass effect. No extra-axial fluid collections. Mastoid air cells unremarkable. Sinuses and orbits unremarkable. No acute fracture. No significant facial or scalp soft tissue swelling evident. No radiopaque foreign body is seen. Impression: 1.No acute intracranial abnormality. Reviewed, dictated and finalized at location P. TICK MOLDER Impression: 1.No acute intracranial abnormality.
--- NOTE | 2025-03-09 11:59 | ECG_ITS ---
Test Date: 2025-03-09 11:59:58 Measurements Intervals [place] Rate: 106 P: 55 VA: 148 QRS: 49 QRSD: 126 T: -23 QT: 357 QTc: 475 Interpretive Statements SINUS TACHYCARDIA RIGHT BUNDLE BRANCH BLOCK CONSIDER ANTEROLATERAL INFARCT, AGE INDETERMINATE INFERIOR INFARCT, AGE INDETERMINATE BASELINE WANDER- V4-V6 ABNORMAL ECG Compared to ECG 02/20/2025 15:46:55 HEART RATE HAS INCREASED Electronically Signed On 03-09-2025 15:56:00 [employer]AM[employer] by Andrea Yanes D.O.
[2025-03-09 12:45] LABS: Hematocrit 54.9 % (42.0-52.0); Hemoglobin 17.6 g/dL (14.0-18.0); Immature Granulocyte Percent A 1.3 % (0-0.5); Lymphocytes Absolute Auto 4.58 K/mm3 (0.9-3.2); Mean Corpuscular HGB Conc 32.1 g/dl (32-36); Mean Corpuscular Hemoglobin 31.2 pg (26-34); Mean Corpuscular Volume 97.3 fl (80-100); Nucleated Red Blood Cells Absolute Auto 0.000 K/mm3 (0.0-0.012); Nucleated Red Blood Cells Perc 0.0 % (0.0-0.2); Platelet Count Result 264 k/mm3 (150-375); Red Blood Count 5.64 M/mm3 (4.6-6.20); White Blood Count 16.7 K/mm3 (4.5-10.0)
[2025-03-09 12:55] LABS: INR 1.1; Partial Thromboplastin Time 23.2 Seconds (22.3-36.8); Prothrombin Time 14.1 Seconds (11.1-14.7)
[2025-03-09 12:59] LABS: Alanine Aminotransferase 28 U/L (6-50); Albumin Level 4.4 g/dL (3.5-5.1); Alkaline Phosphatase 106 U/L (38-126); Anion Gap 11 mmol/L (4-12); Aspartate Amino Transferase 32 U/L (17-59); Bilirubin,Total 0.7 mg/dL (0.2-1.3); Blood Urea Nitrogen 56 mg/dL (9-20); CRP < 0.5 mg/dL (<1.0); Calcium 10.1 mg/dL (8.4-10.2); Carbon Dioxide 27 mmol/L (22-30); Chloride 122 mmol/L (98-107); Estimated Glomerular Filt Rate 29; Glucose 136 mg/dL (65-110); Lipase 148 U/L (23-300); Potassium 3.9 mmol/L (3.4-5.0); Sodium 160 mmol/L (137-145); Total Protein 8.4 g/dL (6.3-8.2)
[2025-03-09] MEDS: LACTATED RINGERS 1,000 ML 999 ML IV CONT ×2 (12:59→14:01)
[2025-03-09 13:09] LABS: Troponin I 0.052 ng/mL (0.000-0.034)
[2025-03-09 14:04] LABS: Add Urine Microscopic? YES; Appearance Urine Clear (Clear); Glucose Urine UA Negative (Negative); Leukocyte Esterase Ur 2+ LEU/UL (Negative); Need Manual Microscopic Reviewed; Nitrate Urine Negative (Negative); Specific Grav Ur 1.011 (1.001-1.035)
--- NOTE | 2025-03-09 14:30 | PC.NURSE ---
Multiple attempts to obtain 2nd set of blood cultures by ER staff with no success. Phlebotomy notified and to bedside. Phlebotomy unable to obtain 2nd set of blood cultures. Cecy, ultrasound certified RN, made aware and states she will be to bedside in approximately an hour.
--- NOTE | 2025-03-09 15:09 | ED.WEAKNESS ---
HPI - Weakness General Chief complaint: Weakness Stated complaint: unresponsive Time Seen by Provider: 03/09/25 12:00 History of Present Illness HPI Narrative: Patient reportedly was unresponsive at the long-term, with very low blood pressure. Reported history of heart disease. Related Data Home Medications ?Medication ?Instructions ?Recorded ?Confirmed ?Last Taken ?Type acetaminophen 325 mg chewable 650 mg PO Q6H PRN Pain (Scale 12/11/21 02/20/25 02/19/25 History tablet Score 1-3) aspirin 81 mg chewable tablet 81 mg PO DAILY 12/11/21 02/20/25 02/19/25 History atorvastatin 80 mg tablet 80 mg PO HS 12/11/21 02/20/25 02/19/25 History polyethylene glycol 3350 17 17 g PO DAILY PRN Constipation 12/11/21 02/20/25 02/19/25 History gram/dose oral powder venlafaxine 75 mg tablet 75 mg PO BID 12/11/21 02/20/25 02/19/25 History polyvinyl alcohol-povidone (PF) 1 drp EACH EYE TID 04/29/22 02/20/25 Unknown History 1.4 %-0.6 % eye drops in a dropperette (Refresh Classic (PF)) olanzapine 2.5 mg tablet 7.5 mg PO HS 03/25/23 02/20/25 02/19/25 History sucralfate 1 gram tablet 1 g PO ACHS 03/25/23 02/20/25 02/19/25 History cholecalciferol (vitamin D3) 1,250 1,250 mcg PO WEEKLY 02/20/25 02/20/25 02/15/25 History mcg (50,000 unit) capsule (Decara) docusate sodium 100 mg capsule 100 mg PO BID 02/20/25 02/20/25 02/19/25 History ergocalciferol (vitamin D2) 1,250 1,250 mcg PO DAILY 02/20/25 02/20/25 02/15/25 History mcg (50,000 unit) capsule (Vitamin D2) furosemide 20 mg tablet 40 mg PO BID 02/20/25 02/20/25 02/19/25 History guaifenesin 600 mg tablet, 600 mg PO BID PRN congestion 02/20/25 02/20/25 Unknown History extended release 12 hr (Mucinex) nystatin 100,000 unit/gram topical 1 applic topical QID PRN 02/20/25 02/20/25 Unknown History powder ([facility]) erythematous condition sertraline 50 mg tablet 75 mg PO DAILY 02/20/25 02/20/25 02/19/25 History Allergies Allergy/AdvReac Type Severity Reaction Status Date / Time haloperidol (From Haldol) Allergy Unknown Verified 03/09/25 16:45 Penicillins Allergy Unknown Verified 03/09/25 16:45 Review of Systems Review of Systems: ROS unobtainable: Yes unobtainable due to medical condition [facility] Past Medical History Medical History (Updated 03/09/25 @ 20:37 by Teresa Ramirez MD) Type 2 diabetes mellitus Diet controlled. A1C 4.16% in 2022. BPH (benign prostatic hyperplasia) HLD (hyperlipidemia) Hyperthyroidism PAD (peripheral artery disease) Coronary artery disease 07/2021. 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 Pericardial effusion. Essential hypertension Venous stasis dermatitis Gastroesophageal reflux disease Pulmonary embolism Pericardial effusion Diabetic neuropathy Depression Chronic anemia Transient ischemic attack Deep venous thrombosis BLE Dementia History of GI bleed Morbid obesity due to excess calories Surgical History Surgical History (Updated 03/09/25 @ 16:04 by Abena Nixon APRN) History of tonsillectomy History of appendectomy History of percutaneous coronary intervention History of gastrostomy tube placement S/p removal History of cardiac catheterization History of laparoscopic cholecystectomy (02/01/22) Gangrenous cholecystitis History of ankle surgery Family History Family History Father Family history of malignant neoplasm Mother Family history of heart disease in male family member before age 55 Family history of cardiovascular disease Hypertension Hx of CABG Social History Social History Social History: Surrogate medical decision maker: Rachna Severinodar, spouse. Code status: Full code. Smoking status: Never smoker Second hand tobacco smoke exposure: Yes Alcohol intake: never Substance use: never Substance use type: does not use Lack of Transportation: No Lack of Food: Never True Current Housing: I Have Housing Concerned About Future Housing: No Difficulty Paying Gas/Electric Bills: No Difficulty Paying for Meds: No Currently Unemployed: No Education: Decline to Answer Difficulty w/ Childcare or Family Care: No Additional living arrangements comments: Resident at [facility]. Spiritual care concerns: No Exam Narrative: EXAMINATION OF ORGAN SYSTEMS/BODY AREAS: Constitutional: Vital signs per nursing GENERAL: Basically obtunded HEAD: Normal with no signs of head trauma. ENT: Hearing grossly intact LUNGS: Slightly shallow and rapid respirations HEART: Tachycardic ABD: Soft, nondistended EXT: No obvious deformity SKIN: No rashes or lesions. NEURO: Obtunded. Course Vital Signs Vital signs: Vital Signs Pulse Rate 105 H 03/09/25 11:49 Respiratory Rate 28 H 03/09/25 11:49 Blood Pressure 85/52 L 03/09/25 11:49 Oxygen Delivery Non-Rebreather Mask 03/09/25 11:49 Oxygen Flow Rate 15 03/09/25 11:49 Temperature 97.5 F L 03/09/25 19:56 Pulse Rate 81 03/09/25 19:56 Respiratory Rate 20 03/09/25 19:56 Blood Pressure 133/69 03/09/25 19:56 Pulse Oximetry 100 03/09/25 19:56 Oxygen Delivery Nasal Cannula 03/09/25 18:33 Oxygen Flow Rate 2 03/09/25 18:33 Procedures EJ/Peripheral Line Arm R: EJ/Peripheral Line Date: 03/09/25 EJ/Peripheral Line Time: 12:10 Skin Cleansed in Sterile Fashion: Yes Ultrasound Guided: Yes Size (gauge): 20 IV Secured and Dressing Applied: Yes Patient Tolerated Procedure: well and no complications MDM MDM Narrative Medical decision making narrative: 75-year-old male with reported history of cardiomyopathy, CHF, presents here with unresponsiveness. On exam he is quite obtunded, with dry mucous membranes. Immediately placed on monitors, IV placed by myself and it checked IVC which is flat, no fluid on lungs, so I will start him on IV fluids. Labs obtained concerning for severe dehydration, including sodium of 160, white count 16.7, elevated lactate and creatinine. On re-evaluation, he is now much more awake, answering questions. His has arrived at bedside, is tells me that for last 2 weeks he has been much more confused and not like his normal self. Sometimes does not recognize her. Discussed with history teacher who recommends Q 6 hour sodium checks, IV fluids. EKG - 12-Lead: Performed at 1159. Interpreted by me. Sinus rhythm. Rate 106. Normal axis. [place]-interval 148. QRS duration 126. QTc 475. No ST segment elevation or depression. T-wave normal. Impression: No EKG evidence of acute ischemia or dysrhythmia. Chest x-ray on my independent interpretation without obvious consolidations or signs of fluid overload. CT abdomen/pelvis obtained since patient was reporting some abdominal pain earlier, no acute abnormality. Troponin initially elevated but without ST elevations on EKG, I suspect this may be from demand ischemia from the low blood pressure, and the repeat troponin is improved. Discussed with hospitalist for admission. Discussed with , would like patient to be DNR/DNI. Differential Diagnosis Differential Diagnosis: Septic shock, CVA, dehydration, etc. Lab Data 03/09/25 12:38 03/09/25 12:37 Labs: Lab Results 03/09/25 03/09/25 03/09/25 Range/Units 12:37 12:38 12:52 WBC 16.7 H (4.5-10.0) K/mm3 RBC 5.64 (4.6-6.20) M/mm3 Hgb 17.6 D (14.0-18.0) g/dL Hct 54.9 H (42.0-52.0) % MCV 97.3 (80-100) fl MCH 31.2 (26-34) pg MCHC 32.1 (32-36) g/dl RDW 18.3 H (11.5-14.5) % Plt Count 264 (150-375) k/mm3 MPV 10.4 (7.4-10.4) fl Immature Gran % (Auto) 1.3 H (0-0.5) % Neut % (Auto) 60.9 (45.5-73.1) % Lymph % (Auto) 27.4 (18.3-44.2) % [place] % (Auto) 9.9 H (2.6-8.5) % Eos % (Auto) 0.3 (0-4.4) % Baso % (Auto) 0.2 (0.2-1.2) % Lymph # (Auto) 4.58 H (0.9-3.2) K/mm3 [place] # (Auto) 1.7 H (0.1-0.6) K/mm3 Eos # (Auto) 0.1 (0-0.3) K/mm3 Baso # (Auto) 0.0 (0.0-0.1) K/mm3 Abs Immat Gran (auto) 0.21 H (0.00-0.031) K/mm3 Absolute Neuts (auto) 10.2 H (1.3-6.7) K/mm3 Absolute Nucleated RBC 0.000 (0.0-0.012) K/mm3 Nucleated RBC % 0.0 (0.0-0.2) % PT 14.1 (11.1-14.7) Seconds INR 1.1 APTT 23.2 (22.3-36.8) Seconds Sodium 160 H (137-145) mmol/L Potassium 3.9 (3.4-5.0) mmol/L Chloride 122 H (98-107) mmol/L Carbon Dioxide 27 (22-30) mmol/L Anion Gap 11 (4-12) mmol/L BUN 56 H D (9-20) mg/dL Creatinine 2.21 H (0.7-1.3) mg/dL Estim Creat Clear Calc Not Reportable Estimated GFR 29 L (59 - ) Glucose 136 H (65-110) mg/dL Lactic Acid 2.6 H (0.7-2.0) mmol/L Calcium 10.1 (8.4-10.2) mg/dL Total Bilirubin 0.7 (0.2-1.3) mg/dL AST 32 (17-59) U/L ALT 28 (6-50) U/L Alkaline Phosphatase 106 (38-126) U/L Troponin I 0.052 H* (0.000-0.034) ng/mL C-Reactive Protein < 0.5 (<1.0) mg/dL Total Protein 8.4 H (6.3-8.2) g/dL Albumin 4.4 (3.5-5.1) g/dL Lipase 148 (23-300) U/L Urine Color Yellow (Yellow) Urine Appearance Clear (Clear) Urine pH 5.5 (5.0-9.0) Ur Specific [place] 1.011 (1.001-1.035) Urine Protein Negative (Negative) mg/dL Urine Glucose (UA) Negative (Negative) mg/dL Urine Ketones Negative (Negative) mg/dL Ur Blood (Man) Negative (Negative) Urine Nitrate Negative (Negative) Urine Bilirubin Negative (Negative) Urine Urobilinogen 0.2 (<2.0) mg/dL Add Ur Microanalysis Reviewed Leukocyte Esterase Rfl 2+ H (Negative) BALJINDER/UL Urine RBC 0-2 (0-2) /hpf Urine WBC 11-20 H (0-3) /hpf Ur Squamous Epith Cells None seen (Few) /hpf Urine Bacteria None seen /hpf Urine Casts 11-20 Imaging Data Radiologist's impression: ITS Impressions Chest X-Ray 03/09/25 12:47 IMPRESSION: 1. Mild left basilar discoid atelectasis with mild elevation of the left hemidiaphragm. Head CT 03/09/25 13:36 Impression: 1.No acute intracranial abnormality. Abdomen/Pelvis CT 03/09/25 13:45 IMPRESSION: Directed noncontrast exam demonstrating no focal acute process to explain source of patient's symptoms. See other comments above. Critical Care Time Critical Care Time Critical Care Time: Yes Indication: hypovolemic shock, hyponatremia Initial evaluation, discuss w/ involved parties, attempting to gather old records: 10 minutes Documenting medical record: 5 minutes Review of results (EKG's, labs, imaging): 5 minutes Serial repeat bedside evaluation: 10 minutes Discussing case with multiple memebers of the care team and consultants: 5 minutes Total Critical Care Time: 35 Discharge Plan Discharge Clinical Impression: Dehydration, Hypernatremia, Hypovolemic shock, BRIAN (acute kidney injury) Patient Disposition: Still a Patient Condition: Serious
--- NOTE | 2025-03-09 15:29 | PC.NURSE ---
patient noted to be alarming and what looked like afib on telemetry. patient monitor leads replaced and adjusted. EDP at bedside, new EKG completed. patient able to tell me where he is, and is responsive. at bedside at this time and updated to plan of care by EDP
--- NOTE | 2025-03-09 15:34 | WPCEDHO ---
ED Hand Off Checklist All vitals saved: yes IV Site documented: yes All med administrations documented: yes Triage Note Triage Note PT TO ED VIA [facility] 03/09/25 11:49 FROM [facility] FOR EVAL OF PT BEING UNRESPONSIVE AND VERY WEAK NOTED TODAY. BP 60/23- 78/50 HEART RATE IN [place] 120'S PER [facility] STAFF. EMS OBAINED PRESSURE 78/58 HR 130'S OPENS EYES TO VOICE AND NODS TO QUESTIONS. PT VERY COLD TO TOUCH. Allergies haloperidol (From Haldol) Allergy (Verified 03/09/25 13:23) Unknown Penicillins Allergy (Verified 03/09/25 13:23) Unknown Pt reports reaction as a child Family History (Last Reviewed 02/20/25 @ 20:13 by Abena Nixon APRN) Father Family history of malignant neoplasm Mother Family history of heart disease in male family member before age 55 Family history of cardiovascular disease Hypertension Hx of CABG Administered/Completed Medications Discontinued Medications Lactated Ringer's (Lr - Lactated Ringers Iv) 1,000 mls @ 999 mls/hr IV CONT .Q1H1M STA Stop: 03/09/25 13:19 Last Admin: 03/09/25 12:59 Dose: 999 mls/hr Documented By: CFG Lactated Ringer's (Lr - Lactated Ringers Iv) 1,000 mls @ 999 mls/hr IV CONT .Q1H1M STA Stop: 03/09/25 14:15 Last Admin: 03/09/25 14:01 Dose: 999 mls/hr Documented By: LDD Notes 03/09/25 15:29 Nurse Note by Kaylie Harkins. patient noted to be alarming and what looked like afib on telemetry. patient monitor leads replaced and adjusted. EDP at bedside, new EKG completed. patient able to tell me where he is, and is responsive. at bedside at this time and updated to plan of care by EDP Initialized on 03/09/25 15:29 - END OF NOTE 03/09/25 14:30 (created 03/09/25 14:50) Nurse Note by Hazel Gutierrez Multiple attempts to obtain 2nd set of blood cultures by ER staff with no success. Phlebotomy notified and to bedside. Phlebotomy unable to obtain 2nd set of blood cultures. Cecy, ultrasound certified RN, made aware and states she will be to bedside in approximately an hour. Initialized on 03/09/25 14:50 - END OF NOTE Interventions/Assessments IV / Saline Lock, Insert Start: 03/09/25 11:49 Freq: Status: Active Protocol: Document 03/09/25 12:30 CFG (Rec: 03/09/25 13:16 CFG [id number]) IV Assessment Peripheral Access Right Antecubital IV Catheter Access Initiated IV Insertion Date 03/09/25 IV Insertion Time 12:30 Catheter Gauge 20 IV Insertion 1 Attempts Ultrasound Used for Yes Placement IV Site Assessment WNL IV Care and WNL Maintenance Additional IV INITIATED BY DR ARDON ED PHYSICIAN WITH BLOOD CULTURE Comments PREP AND STERILE GEL. PA: Cardiovascular Assessment Start: 03/09/25 11:49 Freq: Status: Complete Protocol: Document 03/09/25 12:30 CFG (Rec: 03/09/25 13:18 CFG [id number]) Cardiovascular Assessment Cardiovascular None Symptoms Skin Description Cool Heart Sounds Normal PA: Neurological Assessment Start: 03/09/25 11:49 Freq: Status: Complete Protocol: Document 03/09/25 12:30 CFG (Rec: 03/09/25 13:18 CFG [id number]) Neurological Assessment Level of Sleeping Consciousness Orientation Unable to Assess Neurological Unresponsiveness,Weakness, General Symptoms Behavior Fatigued Patient Unable to Comprehend Comprehension Memory Description Unable to Assess Ability to Maintain Unable to Assess Balance Facial Symmetry Unable to Assess Speech Pattern Unable to Assess Ability to Swallow Unable to Assess Tongue Position Unable to Assess Finger to Nose Test Activity Impossible Heel to Wu Test Activity Impossible All Extremities Extremity Movement Unable to Assess Description All Extremities Sensation Unable to Assess Description Gonzales Coma Scale Eyes To Voice Verbal No Response Motor Withdraws to Pain Gonzales Coma Total 8 Score Last Vital Signs Temperature 97.8 F 03/09/25 15:31 Pulse Rate 97 03/09/25 15:31 Respiratory Rate 16 03/09/25 15:31 Pulse Oximetry 100 03/09/25 15:31 Blood Pressure 126/74 03/09/25 15:31 Blood Pressure Mean 86 03/09/25 15:31 Blood Pressure Position Sitting 03/09/25 13:15 Oxygen Delivery Non-Rebreather Mask 03/09/25 11:49 Oxygen Flow Rate 15 03/09/25 11:49 Weight 89 kg 03/09/25 11:49 Last Result - Abnormals Only WBC 16.7 K/mm3 (4.5-10.0) H 03/09/25 12:38 Hct 54.9 % (42.0-52.0) H 03/09/25 12:38 RDW 18.3 % (11.5-14.5) H 03/09/25 12:38 Immature Gran % (Auto) 1.3 % (0-0.5) H 03/09/25 12:38 Johnson % (Auto) 9.9 % (2.6-8.5) H 03/09/25 12:38 Lymph # (Auto) 4.58 K/mm3 (0.9-3.2) H 03/09/25 12:38 Johnson # (Auto) 1.7 K/mm3 (0.1-0.6) H 03/09/25 12:38 Abs Immat Gran (auto) 0.21 K/mm3 (0.00-0.031) H 03/09/25 12:38 Absolute Neuts (auto) 10.2 K/mm3 (1.3-6.7) H 03/09/25 12:38 Sodium 160 mmol/L (137-145) H 03/09/25 12:37 Chloride 122 mmol/L (98-107) H 03/09/25 12:37 BUN 56 mg/dL (9-20) H D 03/09/25 12:37 Creatinine 2.21 mg/dL (0.7-1.3) H 03/09/25 12:37 Estimated GFR 29 (59-) L 03/09/25 12:37 Glucose 136 mg/dL (65-110) H 03/09/25 12:37 Lactic Acid 2.6 mmol/L (0.7-2.0) H 03/09/25 12:38 Troponin I 0.052 ng/mL (0.000-0.034) H* 03/09/25 12:37 Total Protein 8.4 g/dL (6.3-8.2) H 03/09/25 12:37 Leukocyte Esterase Rfl 2+ BALJINDER/UL (Negative) H 03/09/25 12:52 Urine WBC 11-20 /hpf (0-3) H 03/09/25 12:52
[2025-03-09] MEDS: LACTATED RINGERS 1,000 ML 100 ML IV CONT (15:40)
--- NOTE | 2025-03-09 15:57 | PM.IMHP2 ---
H&P: HPI History of Present Illness Date/Time: 03/09/25 15:57 Chief Complaint: AMS Narrative: 75 y/o M with PMH of chronic anemia, CAD, DVT, dementia, depression, HTN, GERD, peripheral artery disease, PE, TIA, diabetes diet controlled, and venous stasis dermatitis presents here with altered mental status. [facility] for further evaluation of generalized weakness and unresponsiveness/altered mental status. Per EMS report, patient initially had a BP of 60/23 to 78/50, heart rate in the 120s, cold to the touch, and patient was able to open eyes to voice and nod to questions. HPI largely obtained through the patient's . Per her report he has not been eating/drinking or able to care for himself since he was discharged from this facility on 02/25. He will not walk at all, won't feed himself, and has been confused since the last UTI which was not his baseline prior to that admission. Did not recognize his this week which is unusual for him. Last admission from 02/20-02/25 and was treated for diarrhea, worsening confusion, and a UTI. Was A&O x3 upon admission with no focal deficits. Improved with IV fluids and initiation of antibiotics. Today he arrives A&O to self only with some difficulty following commands. Initial VS at presentation: HR 105, R 28, 85/52, 100% on a non-rebreather. Now 98% on 2 L nasal cannula. ED workup showed: WBC 16.7, hemoglobin 17.6 (previously 14.0 on 02/25/2025), sodium 160, creatinine 2.21 and GFR 29 (previously 0.73 and GFR >60 on 02/25), glucose 136, lactic 2.6, troponin 0.052, CRP negative, and UA showed soft indications of infection including 2+ leuk esterase and 11-20 WBC with no epithelial cells. CXR showed mild left basilar discoid atelectasis with mild elevation of the left hemidiaphragm. Head CT showed no acute intracranial abnormality. CT of the abdomen/pelvis showed no focal process to explain patient's symptoms. Review of Systems Review of Systems: ROS unobtainable: Yes unobtainable due to mental status [facility] Past Medical History Medical History (Updated 03/09/25 @ 18:21 by Abena Nixon APRN) Type 2 diabetes mellitus Diet controlled. A1C 4.16% in 2022. BPH (benign prostatic hyperplasia) HLD (hyperlipidemia) Hyperthyroidism PAD (peripheral artery disease) Coronary artery disease 07/2021. 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 Pericardial effusion. Essential hypertension Venous stasis dermatitis Gastroesophageal reflux disease Pulmonary embolism Pericardial effusion Diabetic neuropathy Depression Chronic anemia Transient ischemic attack Deep venous thrombosis BLE Dementia History of GI bleed Morbid obesity due to excess calories Surgical History Surgical History (Updated 03/09/25 @ 16:04 by Abena Nixon APRN) History of tonsillectomy History of appendectomy History of percutaneous coronary intervention History of gastrostomy tube placement S/p removal History of cardiac catheterization History of laparoscopic cholecystectomy (02/01/22) Gangrenous cholecystitis History of ankle surgery Family History Family History Father Family history of malignant neoplasm Mother Family history of heart disease in male family member before age 55 Family history of cardiovascular disease Hypertension Hx of CABG Social History Social History Social History: Surrogate medical decision maker: Rachnaanderson Almaraz, spouse. Code status: Full code. Smoking status: Never smoker Second hand tobacco smoke exposure: Yes Alcohol intake: never Substance use: never Substance use type: does not use Lack of Transportation: No Lack of Food: Never True Current Housing: I Have Housing Concerned About Future Housing: No Difficulty Paying Gas/Electric Bills: No Difficulty Paying for Meds: No Currently Unemployed: No Education: Decline to Answer Difficulty w/ Childcare or Family Care: No Additional living arrangements comments: Resident at [facility]. Spiritual care concerns: No Meds Home Medications and Allergies Home Medications ?Medication ?Instructions ?Recorded ?Confirmed ?Type acetaminophen 325 mg chewable 650 mg PO Q6H PRN Pain (Scale 12/11/21 02/20/25 History tablet Score 1-3) aspirin 81 mg chewable tablet 81 mg PO DAILY 12/11/21 02/20/25 History atorvastatin 80 mg tablet 80 mg PO HS 12/11/21 02/20/25 History polyethylene glycol 3350 17 17 g PO DAILY PRN Constipation 12/11/21 02/20/25 History gram/dose oral powder venlafaxine 75 mg tablet 75 mg PO BID 12/11/21 02/20/25 History polyvinyl alcohol-povidone (PF) 1 drp EACH EYE TID 04/29/22 02/20/25 History 1.4 %-0.6 % eye drops in a dropperette (Refresh Classic (PF)) olanzapine 2.5 mg tablet 7.5 mg PO HS 03/25/23 02/20/25 History sucralfate 1 gram tablet 1 g PO ACHS 03/25/23 02/20/25 History methimazole 5 mg tablet 5 mg PO DAILY hyperthyroidism #30 03/30/23 02/20/25 Rx tabs ferrous sulfate 325 mg (65 mg 325 mg PO DAILY #90 tabs 04/30/23 02/20/25 Rx iron) tablet,delayed release sacubitril 24 mg-valsartan 26 mg 1 tablet PO Q12HR #60 tabs 04/30/23 02/20/25 Rx tablet (Entresto) cholecalciferol (vitamin D3) 1,250 1,250 mcg PO WEEKLY 02/20/25 02/20/25 History mcg (50,000 unit) capsule (Decara) docusate sodium 100 mg capsule 100 mg PO BID 02/20/25 02/20/25 History ergocalciferol (vitamin D2) 1,250 1,250 mcg PO DAILY 02/20/25 02/20/25 History mcg (50,000 unit) capsule (Vitamin D2) furosemide 20 mg tablet 40 mg PO BID 02/20/25 02/20/25 History guaifenesin 600 mg tablet, 600 mg PO BID PRN congestion 02/20/25 02/20/25 History extended release 12 hr (Mucinex) nystatin 100,000 unit/gram topical 1 applic topical QID PRN 02/20/25 02/20/25 History powder (Nyamyc) erythematous condition sertraline 50 mg tablet 75 mg PO DAILY 02/20/25 02/20/25 History cefdinir 300 mg capsule 300 mg PO Q12H #12 caps 02/25/25 Rx hydrocodone 5 mg-acetaminophen 325 1 tablet PO BID pain #9 tabs 02/25/25 Rx mg tablet tamsulosin 0.4 mg capsule 0.4 mg PO QAM #30 caps 02/25/25 Rx Allergies Allergy/AdvReac Type Severity Reaction Status Date / Time haloperidol (From Haldol) Allergy Unknown Verified 03/09/25 16:45 Penicillins Allergy Unknown Verified 03/09/25 16:45 Vital Signs Vital Signs - 24 hr 03/09/25 11:49 03/09/25 12:00 03/09/25 12:05 Temperature Pulse Rate 105 H 120 H Respiratory Rate 28 H 25 H Blood Pressure 85/52 L 91/75 L Pulse Oximetry 100 100 Oxygen Delivery Non-Rebreather Mask Non-Rebreather Mask Oxygen Flow Rate 15 15 03/09/25 12:16 03/09/25 12:31 03/09/25 13:00 Temperature 98.3 F Pulse Rate 120 H 97 Respiratory Rate 16 18 Blood Pressure 111/97 H 114/57 L Pulse Oximetry 98 98 100 Oxygen Delivery Nasal Cannula Oxygen Flow Rate 2 03/09/25 13:12 03/09/25 13:13 03/09/25 13:15 Temperature 98.2 F 98.2 F Pulse Rate 92 98 105 H Respiratory Rate 18 19 20 Blood Pressure 117/71 117/71 Pulse Oximetry 99 100 Oxygen Delivery Oxygen Flow Rate 03/09/25 13:59 03/09/25 14:15 03/09/25 14:30 Temperature 97.9 F 97.9 F 97.8 F Pulse Rate 97 97 Respiratory Rate 12 20 Blood Pressure Pulse Oximetry 99 100 Oxygen Delivery Oxygen Flow Rate 03/09/25 15:00 03/09/25 15:30 03/09/25 15:31 Temperature 97.7 F 97.8 F 97.8 F Pulse Rate 86 100 97 Respiratory Rate 16 20 16 Blood Pressure 126/74 Pulse Oximetry 100 100 100 Oxygen Delivery Oxygen Flow Rate 03/09/25 15:46 Temperature 97.9 F Pulse Rate 99 Respiratory Rate 17 Blood Pressure 118/73 Pulse Oximetry 98 Oxygen Delivery Oxygen Flow Rate Exam Const: Other: , male, elderly, ill-appearing, restless HENMT: Face/Nose/Sinus: Normal nares present Mouth: Yes dry mucous membranes Eyes: General: appearance normal, both eyes and all related structures Sclera: sclerae normal Pupils: Equal, round and reactive pupils present EOM: EOMs intact bilaterally Resp: Effort & Inspection: normal respiratory effort Auscultation: clear to auscultation bilaterally Cardio: Rate: regular rate Rhythm: regular rhythm Other: S1-S2 present without murmur, rub, ectopy GI: Other: Abdomen soft, nondistended, nontender. Normoactive bowel sounds in all quadrants. Skin: General skin exam: normal color and no rashes or lesions noted Other: Small area of erythema to the coccyx region. Abrasion overlying. Neuro: Other: Patient is alert to self only. Moving all extremities. Difficulty following commands, restless, moaning. Difficult exam. No gaze deviation appreciated. Extrem: Other: Cool extremities. Psych: Other: Poor insight and judgment, restless. Results Labs Labs: Short CBC 03/09/25 Range/Units 12:38 WBC 16.7 H (4.5-10.0) K/mm3 Hgb 17.6 D (14.0-18.0) g/dL Hct 54.9 H (42.0-52.0) % Plt Count 264 (150-375) k/mm3 BMP 03/09/25 12:37 Sodium 160 H Potassium 3.9 Chloride 122 H Carbon Dioxide 27 BUN 56 H D Creatinine 2.21 H Glucose 136 H Calcium 10.1 Cardiac Enzymes 03/09/25 Range/Units 12:37 Troponin I 0.052 H* (0.000-0.034) ng/mL Liver Function 03/09/25 Range/Units 12:37 Total Bilirubin 0.7 (0.2-1.3) mg/dL AST 32 (17-59) U/L ALT 28 (6-50) U/L Alkaline Phosphatase 106 (38-126) U/L Albumin 4.4 (3.5-5.1) g/dL Urine 03/09/25 Range/Units 12:52 Urine Color Yellow (Yellow) Urine Appearance Clear (Clear) Urine pH 5.5 (5.0-9.0) Ur Specific [place] 1.011 (1.001-1.035) Urine Protein Negative (Negative) mg/dL Urine Glucose (UA) Negative (Negative) mg/dL Quality VTE Prophylaxis VTE prophylaxis: mechanical ordered Assessment and Plan Assessment and plan (1) Sepsis: Code(s): A41.9 - Sepsis, unspecified organism Status: Resolved Assessment and Plan: Met sirs criteria due to heart rate, blood pressure, respiratory rate. UA showed soft signs of infection, culture pending. Lactic initially 2.6 with repeat at 2.4 with IV fluids. - blood cultures obtained on 03/09, follow - lactic elevated, check procalcitonin - started on ceftriaxone on 03/09 for suspected UTI - monitor hemodynamic stability, does have cool extremities on exam however temp remains 97.5F and hypotension has resolved with IV fluids (2) CVA (cerebral vascular accident): Qualifiers: CVA mechanism: unspecified Qualified Code(s): I63.9 - Cerebral infarction, unspecified Code(s): I63.9 - Cerebral infarction, unspecified Status: Acute Assessment and Plan: Patient has had failure to thrive since the end of January. Virtually not helping to feed himself, walk, or eating/drinking. Unresponsive today that significantly improved with IV fluids. However CT of the head showed remote bilateral basal ganglia in lacunar infarcts. No previous history of CVA. Reviewed previous head CT from March of 2023, no CVA noted at that time. Remote CVAs could be reason for general decline. Discussed goals of care with the patient's , care coordination consulted for discussions of hospice. Not willing to pursue at this evening and would like to see if he improves at all with fluids, however is open to discussing. - brain MRI - neurology consulted - PT/OT/ST - continue daily aspirin and atorvastatin, add Plavix (3) Acute kidney injury: Code(s): N17.9 - Acute kidney failure, unspecified Status: Acute Assessment and Plan: Previous history of BRIAN related to UTI/dehydration. Has reportedly not been eating or drinking since he was discharged at the end of January. Creatinine 2.21/BUN 56/GFR 29 upon admission. - check CK, urine sodium, protein/creatinine, urine creatinine, urea - monitor I&Os - BRINA likely related to acute dehydration/poor p.o. intake related to failure to thrive. If no improvement with IV fluids, consider Nephrology consultation (4) Dehydration: Code(s): E86.0 - Dehydration Status: Acute Assessment and Plan: Patient has had failure to thrive since he was discharged at the end of January from this facility. Per he has not been feeding himself or eating/drinking. Profoundly hypotensive upon initial assessment that has resolved with IV fluids. Patient still appears dry on exam. Maintenance fluids continued. BRIAN related to dehydration, see above. (5) Abnormal urinalysis: Code(s): R82.90 - Unspecified abnormal findings in urine Status: Acute Assessment and Plan: UA showed soft signs of infection. Review of systems unreliable due to alteration. However given presence of lactic acidosis and significance of vital sign abnormalities, will pursue broad-spectrum antibiotics. - UA: 2+ leuk esterase and 11-20 WBC - UC pending - previous micro reviewed, Heena in 2022 otherwise no significant resistances - started on Ceftriaxone on 03/09 (6) Elevated troponin: Code(s): R79.89 - Other specified abnormal findings of blood chemistry Status: Acute Assessment and Plan: Her mild elevation in troponin that is thus far been flat (0.052 -> 0.041). EKG when compared to previous from 02/20/2025 there are no significant changes beyond the heart rate increasing. Patient restless and unreliable historian, unclear if he has experienced any chest pain or symptoms concerning for ACS. - trend troponin - telemetry monitoring (7) Hypertension: Qualifiers: Hypertension type: primary hypertension Qualified Code(s): I10 - Essential (primary) hypertension Code(s): I10 - Essential (primary) hypertension Status: Chronic Assessment and Plan: - chronic, currently 118/73. Profoundly hypotensive per EMS. Arrived soft. - HOLD home medications - monitor (8) Hyperthyroidism: Code(s): E05.90 - Thyrotoxicosis, unspecified without thyrotoxic crisis or storm Status: Chronic Assessment and Plan: - reviewed previous lab work, TSH 1.25 on 02/21/2025 - continue methimazole once verified Plan Diet: NPO except ice chips GI Prophylaxis: N/a DVT Prophylaxis: SCDs IV fluids: 2L -> 100 mL/hr Lines/Tubes: pIV, romano Code Status: DNR Prior Studies I have reviewed the following patient records and this information was taken into consideration when formulating the assessment and plan.: previous labs, previous ER visits, previous hospitalizations and previous clinic visits Time Spent with Patient Time with patient: 45 - 74 minutes Hospitalist MIPS Advance Care Plan I have confirmed that the patient's Advanced Care Plan is present, code status is documented, or surrogate decision maker is listed in patient medical record.: Yes Medication Reconciliation I have utilized all available resources to obtain, update and review the patients current medications (includes all prescriptions, OTC, herbals, cannabis, and nutritional supplements).: Yes
--- NOTE | 2025-03-09 16:29 | PCRCNOTE ---
ABG'S delayed due to patient moving up from ED and nursing cleaning pt up
[2025-03-09] MEDS: cefTRIAXone 1 GM in SODIUM CHLORIDE 0.9% IV 50 ML 100 ML IVPB (16:53)
[2025-03-09 17:03] LABS: Alveolar/Arterial O2 Gradient 49.4 mmHg; Fractional Inspired Oxygen 28 %; HCO3 ABG 24.8 mEq/l (22.0-26.0); Oxygen Content ABG 21.5 %vol (16.0-22.0); Oxygen Saturation ABG 97.9 % (95.0-100.0); PCO2 ABG 38.5 mmHg (35.0-45.0); PO2 ABG 104.8 mmHg (80.0-100.0); PO2 FiO2 Ratio Arterial Blood 3.74 %
[2025-03-09 17:07] LABS: Liters per Minute 2.0 LPM; Site Drawn LEFT BRACHIAL
--- NOTE | 2025-03-09 17:08 | ADMGEN ---
This patient, Juan Pablo Almaraz, was admitted to IMU Room 207-01 at 1610. Patient/family oriented to hospital policies and general routines including ID bracelet, bed and alarms, visiting hours, pain management, procedures, bathroom and other care routines, personal items, smoking policy, room service/diet, and visiting hours. Information on how to activate the Rapid Response Team has been discussed. Patient/Family are encouraged to report perceived risks to care and to ask questions if they do not understand what they are told or what they should do.
[2025-03-09 17:42] LABS: Troponin I 0.041 ng/mL (0.000-0.034)
--- NOTE | 2025-03-09 18:44 | WNDPHOTO ---
PHOTO ONLY - See Nursing Notes and/ or assessments for documentation.
--- NOTE | 2025-03-09 19:37 | PC.NURSE ---
PATIENT IS UNABLE TO VERIFY HOME MEDICATION LIST. IS AT BEDSIDE AND IS A POOR HISTORIAN AND IS UNAWARE OF MEDICATIONS THAT HE TAKES. MULTIPLE CALLS MADE FOR A MEDICATION LIST TO [facility]. NO RETURN CALL OR FAX OF LIST AT THIS TIME.
[2025-03-09 19:42] LABS: Influenza A QL RT-PCR Negative (Negative); Influenza B QL RT-PCR Negative (Negative); RSV RNA, RT-PCR Negative (Negative); SARS-CoV-2 RNA PCR Negative (Negative)
[2025-03-09 20:40] LABS: Anion Gap 5 mmol/L (4-12); Blood Urea Nitrogen 48 mg/dL (9-20); Calcium 9.5 mg/dL (8.4-10.2); Carbon Dioxide 30 mmol/L (22-30); Chloride 121 mmol/L (98-107); Estimated CRCL calculation 31 ml/min; Estimated Glomerular Filt Rate 37; Glucose 121 mg/dL (65-110); Potassium 4.0 mmol/L (3.4-5.0); Sodium 156 mmol/L (137-145)
[2025-03-09 20:53] LABS: Troponin I 0.043 ng/mL (0.000-0.034)
[2025-03-09 21:00] LABS: Procalcitonin 0.1 ng/mL
[2025-03-09 21:07] LABS: Creatine Kinase 57 U/L (55-170)
[2025-03-09 21:39] LABS: Total Protein Urine Random 8 mg/dL; Ur Ttl Prot Creatinine Ratio 0.07 mg/mg (0-0.20)
[2025-03-09 22:30] LABS: Urea Random Urine 1079 MG/DL
[2025-03-10] VITALS (16 sets, daily range): BP systolic 107–153; BP diastolic 57–78; PULSE 73–109; RESP 16–21; TEMP 36.3–36.7; O2SAT 94–99
[2025-03-10] MEDS: LACTATED RINGERS 1,000 ML 100 ML IV CONT ×3 (01:28→23:07)
[2025-03-10 04:40] LABS: Hematocrit 43.8 % (42.0-52.0); Hemoglobin 14.0 g/dL (14.0-18.0); Immature Granulocyte Percent A 0.8 % (0-0.5); Lymphocytes Absolute Auto 4.31 K/mm3 (0.9-3.2); Mean Corpuscular HGB Conc 32.0 g/dl (32-36); Mean Corpuscular Hemoglobin 31.5 pg (26-34); Mean Corpuscular Volume 98.4 fl (80-100); Nucleated Red Blood Cells Absolute Auto 0.000 K/mm3 (0.0-0.012); Nucleated Red Blood Cells Perc 0.0 % (0.0-0.2); Platelet Count Result 200 k/mm3 (150-375); Red Blood Count 4.45 M/mm3 (4.6-6.20); White Blood Count 12.9 K/mm3 (4.5-10.0)
[2025-03-10 04:57] LABS: Alanine Aminotransferase 18 U/L (6-50); Albumin Level 3.3 g/dL (3.5-5.1); Alkaline Phosphatase 91 U/L (38-126); Anion Gap 4 mmol/L (4-12); Aspartate Amino Transferase 21 U/L (17-59); Bilirubin,Total 0.6 mg/dL (0.2-1.3); Blood Urea Nitrogen 42 mg/dL (9-20); Calcium 9.3 mg/dL (8.4-10.2); Carbon Dioxide 26 mmol/L (22-30); Chloride 123 mmol/L (98-107); Estimated CRCL calculation 40 ml/min; Estimated Glomerular Filt Rate 50; Glucose 112 mg/dL (65-110); Magnesium 2.3 mg/dL (1.6-2.3); Potassium 3.4 mmol/L (3.4-5.0); Sodium 153 mmol/L (137-145); Total Protein 6.3 g/dL (6.3-8.2)
--- NOTE | 2025-03-10 09:57 | PCSTNOTE ---
attempted to complete BSE; spoke with LEONORA Hawthorne; she stated to hold BSE as pt is NPO for an MRI. She also stated pt may be going hospice; ST will follow up.
--- NOTE | 2025-03-10 10:49 | WPDNEURCNPN ---
Consult date: 03/10/25 HPI: Juan Pablo Almaraz is a 75 year old male Admitted to the hospital through the emergency room with history of being found unresponsive at the group home and with very low blood pressure. Patient has been on multiple medications including 1. Aspirin 81mg daily 2. Atorvastatin 80mg at night 3. Venlafaxine 75mg b.i.d. 4. Olanzapine 7.5mg at night 5. Furosemide 40mg b.i.d. 6. Sertraline 75mg daily. Patient is reportedly allergic to Haldol and penicillin. Past history is important for the 1. type 2 diabetes mellitus only diet controlled 2.. Hyperthyroidism 3. History of coronary artery disease 4. History of pulmonary embolism 5. Dementia 6. Never smoker 7. Never alcohol intake or. Initial exam in the emergency room patient was obtunded. Vital signs included low blood pressure of 85/52, lactic acid 2.6, troponin 0.052, UA with 2+ leukocyte Estrace, negative chest x-ray mild elevation of left hemidiaphragm, negative CT scan of the head for the bleed and negative CT scan of the abdomen and pelvic area Review of Systems Review of Systems: All systems reviewed & are unremarkable except as noted in HPI and below PMFSH Past Medical History Medical History Type 2 diabetes mellitus Diet controlled. A1C 4.16% in 2022. BPH (benign prostatic hyperplasia) HLD (hyperlipidemia) Hyperthyroidism PAD (peripheral artery disease) Coronary artery disease 07/2021. 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 Pericardial effusion. Essential hypertension Venous stasis dermatitis Gastroesophageal reflux disease Pulmonary embolism Pericardial effusion Diabetic neuropathy Depression Chronic anemia Transient ischemic attack Deep venous thrombosis BLE Dementia History of GI bleed Morbid obesity due to excess calories Surgical History Surgical History History of tonsillectomy History of appendectomy History of percutaneous coronary intervention History of gastrostomy tube placement S/p removal History of cardiac catheterization History of laparoscopic cholecystectomy (02/01/22) Gangrenous cholecystitis History of ankle surgery Family History Family History Father Family history of malignant neoplasm Mother Family history of heart disease in male family member before age 55 Family history of cardiovascular disease Hypertension Hx of CABG Social History Social History Social History: Surrogate medical decision maker: Rachna Almaraz, spouse. Code status: Full code. Smoking status: Never smoker Second hand tobacco smoke exposure: Yes Alcohol intake: never Substance use: never Substance use type: does not use Lack of Transportation: No Lack of Food: Never True Current Housing: I Have Housing Concerned About Future Housing: No Difficulty Paying Gas/Electric Bills: No Difficulty Paying for Meds: No Currently Unemployed: No Education: Decline to Answer Difficulty w/ Childcare or Family Care: No Additional living arrangements comments: Resident [facility]. Spiritual care concerns: No Meds Home Medications and Allergies Home Medications ?Medication ?Instructions ?Recorded ?Confirmed ?Type acetaminophen 325 mg chewable 650 mg PO Q6H PRN Pain (Scale 12/11/21 03/09/25 History tablet Score 1-3) aspirin 81 mg chewable tablet 81 mg PO DAILY 12/11/21 03/09/25 History atorvastatin 80 mg tablet 80 mg PO HS 12/11/21 03/09/25 History polyethylene glycol 3350 17 17 g PO DAILY PRN Constipation 12/11/21 03/09/25 History gram/dose oral powder venlafaxine 75 mg tablet 75 mg PO BID 12/11/21 03/09/25 History polyvinyl alcohol-povidone (PF) 1 drp EACH EYE TID 04/29/22 03/09/25 History 1.4 %-0.6 % eye drops in a dropperette (Refresh Classic (PF)) olanzapine 2.5 mg tablet 7.5 mg PO HS 03/25/23 03/09/25 History sucralfate 1 gram tablet 1 g PO ACHS 03/25/23 03/09/25 History methimazole 5 mg tablet 5 mg PO DAILY hyperthyroidism #30 03/30/23 03/09/25 Rx tabs ferrous sulfate 325 mg (65 mg 325 mg PO DAILY #90 tabs 04/30/23 03/09/25 Rx iron) tablet,delayed release sacubitril 24 mg-valsartan 26 mg 1 tablet PO Q12HR #60 tabs 04/30/23 03/09/25 Rx tablet (Entresto) cholecalciferol (vitamin D3) 1,250 1,250 mcg PO WEEKLY 02/20/25 03/09/25 History mcg (50,000 unit) capsule (Decara) docusate sodium 100 mg capsule 100 mg PO BID 02/20/25 03/09/25 History ergocalciferol (vitamin D2) 1,250 1,250 mcg PO DAILY 02/20/25 03/09/25 History mcg (50,000 unit) capsule (Vitamin D2) furosemide 20 mg tablet 40 mg PO BID 02/20/25 03/09/25 History guaifenesin 600 mg tablet, 600 mg PO BID PRN congestion 02/20/25 03/09/25 History extended release 12 hr (Mucinex) nystatin 100,000 unit/gram topical 1 applic topical QID PRN 02/20/25 03/09/25 History powder (Nyamyc) erythematous condition sertraline 50 mg tablet 75 mg PO DAILY 02/20/25 03/09/25 History cefdinir 300 mg capsule 300 mg PO Q12H #12 caps 02/25/25 03/09/25 Rx hydrocodone 5 mg-acetaminophen 325 1 tablet PO BID pain #9 tabs 02/25/25 03/09/25 Rx mg tablet finasteride 5 mg tablet 5 mg PO DAILY 03/09/25 03/09/25 History potassium chloride 20 mEq 20 meq PO DAILY 03/09/25 03/09/25 History tablet,extended release(part/cryst) tamsulosin 0.4 mg capsule 0.4 mg PO HS 03/09/25 03/09/25 History Allergies Allergy/AdvReac Type Severity Reaction Status Date / Time haloperidol (From Haldol) Allergy Unknown Verified 03/09/25 16:45 Penicillins Allergy Unknown Verified 03/09/25 16:45 Vital Signs Vital Signs - 24 hr 03/09/25 11:49 03/09/25 12:00 03/09/25 12:05 Temperature Pulse Rate 105 H 120 H Respiratory Rate 28 H 25 H Blood Pressure 85/52 L 91/75 L Pulse Oximetry 100 100 Oxygen Delivery Non-Rebreather Mask Non-Rebreather Mask Oxygen Flow Rate 15 15 03/09/25 12:16 03/09/25 12:31 03/09/25 13:00 Temperature 36.8 C Pulse Rate 120 H 97 Respiratory Rate 16 18 Blood Pressure 111/97 H 114/57 L Pulse Oximetry 98 98 100 Oxygen Delivery Nasal Cannula Oxygen Flow Rate 2 03/09/25 13:12 03/09/25 13:13 03/09/25 13:15 Temperature 36.8 C 36.8 C Pulse Rate 92 98 105 H Respiratory Rate 18 19 20 Blood Pressure 117/71 117/71 Pulse Oximetry 99 100 Oxygen Delivery Oxygen Flow Rate 03/09/25 13:59 03/09/25 14:15 03/09/25 14:30 Temperature 36.6 C 36.6 C 36.6 C Pulse Rate 97 97 Respiratory Rate 12 20 Blood Pressure Pulse Oximetry 99 100 Oxygen Delivery Oxygen Flow Rate 03/09/25 15:00 03/09/25 15:30 03/09/25 15:31 Temperature 36.5 C 36.6 C 36.6 C Pulse Rate 86 100 97 Respiratory Rate 16 20 16 Blood Pressure 126/74 Pulse Oximetry 100 100 100 Oxygen Delivery Oxygen Flow Rate 03/09/25 15:46 03/09/25 16:37 03/09/25 17:08 Temperature 36.6 C 36.4 C L Pulse Rate 99 103 H Respiratory Rate 17 Blood Pressure 118/73 125/71 Pulse Oximetry 98 94 97 Oxygen Delivery Nasal Cannula Oxygen Flow Rate 2 03/09/25 18:00 03/09/25 18:33 03/09/25 19:56 Temperature 36.4 C L Pulse Rate 84 81 Respiratory Rate 20 Blood Pressure 133/69 Pulse Oximetry 98 100 Oxygen Delivery Nasal Cannula Oxygen Flow Rate 2 03/09/25 20:00 03/09/25 20:00 03/09/25 22:00 Temperature Pulse Rate 81 105 H Respiratory Rate Blood Pressure Pulse Oximetry 100 Oxygen Delivery Nasal Cannula Oxygen Flow Rate 2 03/10/25 00:00 03/10/25 00:00 03/10/25 00:00 Temperature 36.4 C Pulse Rate 109 H 95 Respiratory Rate 18 Blood Pressure 142/76 H Pulse Oximetry 99 99 Oxygen Delivery Nasal Cannula Oxygen Flow Rate 2 03/10/25 02:00 03/10/25 04:00 03/10/25 04:00 Temperature Pulse Rate 90 88 Respiratory Rate Blood Pressure Pulse Oximetry 94 Oxygen Delivery Nasal Cannula Oxygen Flow Rate 2 03/10/25 04:10 03/10/25 06:00 03/10/25 06:39 Temperature 36.6 C Pulse Rate 95 85 Respiratory Rate 20 Blood Pressure 119/57 L Pulse Oximetry 94 95 Oxygen Delivery Room Air Oxygen Flow Rate 03/10/25 07:59 03/10/25 08:00 03/10/25 08:00 Temperature 36.7 C Pulse Rate 96 108 H 108 H Respiratory Rate 20 16 Blood Pressure 128/78 Pulse Oximetry 98 98 Oxygen Delivery Room Air Oxygen Flow Rate 03/10/25 10:00 Temperature Pulse Rate 103 H Respiratory Rate Blood Pressure Pulse Oximetry Oxygen Delivery Oxygen Flow Rate Results Labs 03/10/25 04:22 03/10/25 04:22 Labs: Short CBC 03/09/25 03/10/25 Range/Units 12:38 04:22 WBC 16.7 H 12.9 H (4.5-10.0) K/mm3 Hgb 17.6 D 14.0 D (14.0-18.0) g/dL Hct 54.9 H 43.8 (42.0-52.0) % Plt Count 264 200 (150-375) k/mm3 BMP 03/09/25 03/09/25 03/10/25 12:37 20:21 04:22 Sodium 160 H 156 H 153 H Potassium 3.9 4.0 3.4 Chloride 122 H 121 H 123 H Carbon Dioxide 27 30 26 BUN 56 H D 48 H 42 H Creatinine 2.21 H 1.79 H 1.38 H Glucose 136 H 121 H 112 H Calcium 10.1 9.5 9.3 Cardiac Enzymes 03/09/25 03/09/25 03/09/25 Range/Units 12:37 16:59 20:21 Total Creatine Kinase 57 (55-170) U/L Troponin I 0.052 H* 0.041 H* D 0.043 H* (0.000-0.034) ng/mL Liver Function 03/09/25 03/10/25 Range/Units 12:37 04:22 Total Bilirubin 0.7 0.6 (0.2-1.3) mg/dL AST 32 21 (17-59) U/L ALT 28 18 (6-50) U/L Alkaline Phosphatase 106 91 (38-126) U/L Albumin 4.4 3.3 L (3.5-5.1) g/dL Urine 03/09/25 Range/Units 12:52 Urine Color Yellow (Yellow) Urine Appearance Clear (Clear) Urine pH 5.5 (5.0-9.0) Ur Specific [place] 1.011 (1.001-1.035) Urine Protein Negative (Negative) mg/dL Urine Glucose (UA) Negative (Negative) mg/dL
[2025-03-10] MEDS: ARTIFICIAL TEARS OPHTH SOLN 15 ML BOTTLE 1 DROP EACH EYE ×3 (12:59→19:03)
--- NOTE | 2025-03-10 15:29 | PCSTNOTE ---
Please refer to the Bedside Swallow Evaluation in the EMR. Please note, silent aspiration cannot be ruled out at bedside. The patient is a 75 year old male admitted due to AMS. Orders received to complete a BSE and r/o aspiration risk. The patient was positioned upright. Oral Mechanism exam revealed limited lingual ROM, coordination, and strength. Speech is dysarthric and single word and phrase responses. The patient was fearful of trials of consistencies but was agreeable to limited trials. Difficulty following directions during course of assessment. The following consistencies were presented: 5cc/tsp thin liquid, 5cc/tsp puree Oral Stage: When presented tsp trials of each consistency the patient demonstrated a delayed oral transit for each due to limited lingual ROM and coordination. No oral residual remained and the bolus was placed each time on the middle portion of the tongue. Pharyngeal Stage: When presented the tsp thin liquid and puree the patient demonstrated a delayed and effortful swallow. 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 Recommend 1. NPO and repeat BSE 03/11 if more alert and able to follow directives with improved lingual control
--- NOTE | 2025-03-10 15:36 | PCPTNOTE ---
HOLD PT eval-- discussed pt with RN Marine, pt is unresponsive and considering Hospice. Prior- dementia and NH resident.
--- NOTE | 2025-03-10 18:48 | PM.IMPN2 ---
Assessment and Plan Assessment and Plan (1) Sepsis: Code(s): A41.9 - Sepsis, unspecified organism Status: Resolved Assessment and Plan: Met sirs criteria due to heart rate, blood pressure, respiratory rate. UA showed soft signs of infection, culture pending. Lactic initially 2.6 with repeat at 2.4 with IV fluids. - blood cultures obtained on 03/09, follow - lactic elevated, check procalcitonin - started on ceftriaxone on 03/09 for suspected UTI - monitor hemodynamic stability, does have cool extremities on exam however temp remains 97.5F and hypotension has resolved with IV fluids (2) CVA (cerebral vascular accident): Qualifiers: CVA mechanism: unspecified Qualified Code(s): I63.9 - Cerebral infarction, unspecified Code(s): I63.9 - Cerebral infarction, unspecified Status: Acute Assessment and Plan: Patient has had failure to thrive since the end of January. Virtually not helping to feed himself, walk, or eating/drinking. Unresponsive today that significantly improved with IV fluids. However CT of the head showed remote bilateral basal ganglia in lacunar infarcts. No previous history of CVA. Reviewed previous head CT from March of 2023, no CVA noted at that time. Remote CVAs could be reason for general decline. Discussed goals of care with the patient's , care coordination consulted for discussions of hospice. Not willing to pursue at this evening and would like to see if he improves at all with fluids, however is open to discussing. - brain MRI - neurology consulted - PT/OT/ST - continue daily aspirin and atorvastatin, add Plavix (3) Acute kidney injury: Code(s): N17.9 - Acute kidney failure, unspecified Status: Acute Assessment and Plan: Previous history of BRIAN related to UTI/dehydration. Has reportedly not been eating or drinking since he was discharged at the end of January. Creatinine 2.21/BUN 56/GFR 29 upon admission. - check CK, urine sodium, protein/creatinine, urine creatinine, urea - monitor I&Os - BRIAN likely related to acute dehydration/poor p.o. intake related to failure to thrive. If no improvement with IV fluids, consider Nephrology consultation (4) Dehydration: Code(s): E86.0 - Dehydration Status: Acute Assessment and Plan: Patient has had failure to thrive since he was discharged at the end of January from this facility. Per he has not been feeding himself or eating/drinking. Profoundly hypotensive upon initial assessment that has resolved with IV fluids. Patient still appears dry on exam. Maintenance fluids continued. BRIAN related to dehydration, see above. (5) Abnormal urinalysis: Code(s): R82.90 - Unspecified abnormal findings in urine Status: Acute Assessment and Plan: UA showed soft signs of infection. Review of systems unreliable due to alteration. However given presence of lactic acidosis and significance of vital sign abnormalities, will pursue broad-spectrum antibiotics. - UA: 2+ leuk esterase and 11-20 WBC - UC pending - previous micro reviewed, Heena in 2022 otherwise no significant resistances - started on Ceftriaxone on 03/09 (6) Elevated troponin: Code(s): R79.89 - Other specified abnormal findings of blood chemistry Status: Acute Assessment and Plan: Her mild elevation in troponin that is thus far been flat (0.052 -> 0.041). EKG when compared to previous from 02/20/2025 there are no significant changes beyond the heart rate increasing. Patient restless and unreliable historian, unclear if he has experienced any chest pain or symptoms concerning for ACS. - trend troponin - telemetry monitoring (7) Hypertension: Qualifiers: Hypertension type: primary hypertension Qualified Code(s): I10 - Essential (primary) hypertension Code(s): I10 - Essential (primary) hypertension Status: Chronic Assessment and Plan: - chronic, currently 118/73. Profoundly hypotensive per EMS. Arrived soft. - HOLD home medications - monitor (8) Hyperthyroidism: Code(s): E05.90 - Thyrotoxicosis, unspecified without thyrotoxic crisis or storm Status: Chronic Assessment and Plan: - reviewed previous lab work, TSH 1.25 on 02/21/2025 - continue methimazole once verified Plan patient was sent to from [place] with AMS and unresponsiveness, with hypotension, patient has not been doing well for sometime prior to coming to ER. MRI of brain showed No acute ischemic event, mass or hemorrhage. No abnormal enhancing lesions or masses. Moderately advanced chronic microvascular ischemic appearing changes and probable old bilateral basal ganglia lacunar infarctions most likely cause of confusion, patient will be seen neurologist and further recommendation to follow. Diet: NPO except ice chips GI Prophylaxis: N/a DVT Prophylaxis: SCDs IV fluids: 2L -> 100 mL/hr Lines/Tubes: pIV, romano Code Status: DNR Subjective Date/time seen: 03/10/25 18:48 Interval history: AMS H&P-Narrative: 75 y/o M with PMH of chronic anemia, CAD, DVT, dementia, depression, HTN, GERD, peripheral artery disease, PE, TIA, diabetes diet controlled, and venous stasis dermatitis presents here with altered mental status. The patient presents here from [facility] via EMS on 03/09 for further evaluation of generalized weakness and unresponsiveness/altered mental status. Per EMS report, patient initially had a BP of 60/23 to 78/50, heart rate in the 120s, cold to the touch, and patient was able to open eyes to voice and nod to questions. HPI largely obtained through the patient's . Per her report he has not been eating/drinking or able to care for himself since he was discharged from this facility on 02/25. He will not walk at all, won't feed himself, and has been confused since the last UTI which was not his baseline prior to that admission. Did not recognize his this week which is unusual for him. Last admission from 02/20-02/25 and was treated for diarrhea, worsening confusion, and a UTI. Was A&O x3 upon admission with no focal deficits. Improved with IV fluids and initiation of antibiotics. Today he arrives A&O to self only with some difficulty following commands. Initial VS at presentation: HR 105, R 28, 85/52, 100% on a non-rebreather. Now 98% on 2 L nasal cannula. ED workup showed: WBC 16.7, hemoglobin 17.6 (previously 14.0 on 02/25/2025), sodium 160, creatinine 2.21 and GFR 29 (previously 0.73 and GFR >60 on 02/25), glucose 136, lactic 2.6, troponin 0.052, CRP negative, and UA showed soft indications of infection including 2+ leuk esterase and 11-20 WBC with no epithelial cells. CXR showed mild left basilar discoid atelectasis with mild elevation of the left hemidiaphragm. Head CT showed no acute intracranial abnormality. CT of the abdomen/pelvis showed no focal process to explain patient's symptoms. patient was [place] to from [place] with [place] and unresponsiveness, with hypotension, patient has not been doing well for sometime prior to coming to ER. MRI of brain showed No acute ischemic event, mass or hemorrhage. No abnormal enhancing lesions or masses. Moderately advanced chronic microvascular ischemic appearing changes and probable old bilateral basal ganglia lacunar infarctions most likely cause of confusion, patient will be seen neurologist and further recommendation to follow. Exam Narrative: Patient is comfortable, NAD HEENT: eyes are clear and none icteric LUNGS:CTA HEART: RR S1S2 ABD: BS+, Soft and nontender Lower extremities: no edema SKIN: nonjaundiced Neuro: grossly intact. Objective Data Vital Signs Vital Signs: Vital Signs - 24 hr 03/09/25 19:56 03/09/25 20:00 03/09/25 20:00 Temperature 36.4 C L Pulse Rate 81 81 Respiratory Rate 20 Blood Pressure 133/69 Pulse Oximetry 100 100 Oxygen Delivery Nasal Cannula Oxygen Flow Rate 2 03/09/25 22:00 03/10/25 00:00 03/10/25 00:00 Temperature 36.4 C Pulse Rate 105 H 109 H Respiratory Rate 18 Blood Pressure 142/76 H Pulse Oximetry 99 99 Oxygen Delivery Nasal Cannula Oxygen Flow Rate 2 03/10/25 00:00 03/10/25 02:00 03/10/25 04:00 Temperature Pulse Rate 95 90 Respiratory Rate Blood Pressure Pulse Oximetry 94 Oxygen Delivery Nasal Cannula Oxygen Flow Rate 2 03/10/25 04:00 03/10/25 04:10 03/10/25 06:00 Temperature 36.6 C Pulse Rate 88 95 85 Respiratory Rate 20 Blood Pressure 119/57 L Pulse Oximetry 94 Oxygen Delivery Oxygen Flow Rate 03/10/25 06:39 03/10/25 07:59 03/10/25 08:00 Temperature 36.7 C Pulse Rate 96 108 H Respiratory Rate 20 16 Blood Pressure 128/78 Pulse Oximetry 95 98 98 Oxygen Delivery Room Air Room Air Oxygen Flow Rate 03/10/25 08:00 03/10/25 10:00 03/10/25 11:36 Temperature 36.3 C L Pulse Rate 108 H 103 H 88 Respiratory Rate 20 Blood Pressure 133/67 Pulse Oximetry 97 Oxygen Delivery Oxygen Flow Rate 03/10/25 12:00 03/10/25 12:00 03/10/25 16:00 Temperature 36.6 C Pulse Rate 96 96 91 Respiratory Rate 21 H 21 H Blood Pressure 107/67 Pulse Oximetry 94 94 Oxygen Delivery Room Air Oxygen Flow Rate 03/10/25 16:00 03/10/25 16:00 03/10/25 18:00 Temperature Pulse Rate 96 96 73 Respiratory Rate 21 H Blood Pressure Pulse Oximetry 94 Oxygen Delivery Room Air Oxygen Flow Rate Intake/Output Intake/Output: Intake & Output 03/07/25 03/08/25 03/09/25 03/10/25 23:59 23:59 23:59 23:59 Intake Total 2050 1980 Output Total 550 675 Balance 1500 1305 Meds/Results Medications: Active Medications Generic Name Dose Route Start Last Admin Trade Name Freq PRN Reason Stop Dose Admin Acetaminophen 650 mg 03/10/25 08:49 Acetaminophen 325 Mg Tablet PO Q6H PRN Pain (Scale Score 1-3) Artificial Tears 1 drop 03/10/25 09:00 03/10/25 13:00 Artificial Tears Ophth Soln 15 Ml Bottle EACH EYE 1 drop TID MYA Administration Aspirin 81 mg 03/10/25 09:00 03/10/25 12:36 Aspirin 81 Mg Chewable Tablet PO Not Given DAILY [facility] Atorvastatin Calcium 80 mg 03/10/25 21:00 Atorvastatin 40 Mg Tablet PO HS MYA Bisacodyl 5 mg 03/09/25 15:26 Bisacodyl 5 Mg Tablet Ec PO DAILY PRN Constipation Clopidogrel Bisulfate 75 mg 03/10/25 09:00 03/10/25 12:36 Clopidogrel Bisulfate 75 Mg Tablet PO Not Given QAM [facility] Docusate Sodium 100 mg 03/10/25 09:00 03/10/25 12:36 Docusate Sodium 100 Mg Capsule PO Not Given BID [facility] Ergocalciferol 1,250 mcg 03/15/25 09:00 Ergocalciferol (Vitamin D2) 1,250 Mcg (50,000 Units) Capsule PO Mo@0900 MYA Ferrous Sulfate 325 mg 03/10/25 09:00 03/10/25 12:37 Ferrous Sulfate 325 Mg Tablet PO Not Given DAILY MYA Finasteride 5 mg 03/10/25 09:00 03/10/25 12:37 Finasteride 5 Mg Tablet PO Not Given DAILY MYA Furosemide 40 mg 03/10/25 09:00 03/10/25 12:37 Furosemide 40 Mg Tablet PO Not Given BID [facility] Guaifenesin 600 mg 03/10/25 08:36 Guaifenesin 12 Hr 600 Mg Tabcr PO BID PRN Congestion Lactated Ringer's 1,000 mls @ 100 mls/hr 03/09/25 15:25 03/10/25 12:59 Lr - Lactated Ringers Iv IV CONT 100 mls/hr .Q10H MYA Administration Ceftriaxone Sodium 1 gm/ 50 mls @ 100 mls/hr 03/09/25 16:00 03/09/25 17:23 Sodium Chloride IVPB Infused Q24H MYA Infusion Methimazole 5 mg 03/10/25 09:00 03/10/25 12:37 Methimazole 5 Mg Tab PO Not Given DAILY MYA Miscellaneous Information 1 each 03/10/25 08:52 Central Supply Item XX 03/11/25 08:51 PRN PRN Informational Olanzapine 7.5 mg 03/10/25 21:00 Olanzapine 2.5 Mg Tablet PO HS MYA Ondansetron HCl 4 mg 03/09/25 15:26 Ondansetron Inj 4 Mg/2 Ml Vial IV PUSH Q6H PRN Nausea And Vomiting Polyethylene Glycol 17 gm 03/10/25 08:36 Polyethylene Glycol 3350 17 Gm Powd.Pack PO DAILY PRN Constipation Sertraline HCl 75 mg 03/10/25 09:00 03/10/25 12:37 Sertraline Hcl 25 Mg Tablet PO Not Given DAILY MYA Sucralfate 1 gm 03/10/25 11:30 03/10/25 12:38 Sucralfate 1 Gm Tablet PO Not Given ACHS MYA Tamsulosin HCl 0.4 mg 03/10/25 21:00 Tamsulosin Hcl 0.4 Mg Capsule PO HS MYA Venlafaxine HCl 75 mg 03/10/25 08:55 03/10/25 12:36 Venlafaxine Hcl 75 Mg Tablet PO Not Given BIDWM [facility] Radiology Results: ITS Impressions Chest X-Ray 03/09/25 12:47 IMPRESSION: 1. Mild left basilar discoid atelectasis with mild elevation of the left hemidiaphragm. Head CT 03/09/25 13:36 Impression: 1.No acute intracranial abnormality. Abdomen/Pelvis CT 03/09/25 13:45 IMPRESSION: Directed noncontrast exam demonstrating no focal acute process to explain source of patient's symptoms. See other comments above. Brain MRI 03/10/25 12:50 IMPRESSION: 1. No acute ischemic event, mass or hemorrhage. No abnormal enhancing lesions or masses. 2. Moderately advanced chronic microvascular ischemic appearing changes and probable old bilateral basal ganglia lacunar infarctions. Labs Labs: Laboratory Results - last 24 hr 03/09/25 03/09/25 03/09/25 18:58 20:21 21:24 WBC RBC Hgb Hct MCV MCH MCHC RDW Plt Count MPV Immature Gran % (Auto) Neut % (Auto) Lymph % (Auto) [place] % (Auto) Eos % (Auto) Baso % (Auto) Lymph # (Auto) [place] # (Auto) Eos # (Auto) Baso # (Auto) Abs Immat Gran (auto) Absolute Neuts (auto) Absolute Nucleated RBC Nucleated RBC % Sodium 156 H Potassium 4.0 Chloride 121 H Carbon Dioxide 30 Anion Gap 5 BUN 48 H Creatinine 1.79 H Estim Creat Clear Calc 31 Estimated GFR 37 L Glucose 121 H Calcium 9.5 Phosphorus Magnesium Total Bilirubin AST ALT Alkaline Phosphatase Total Creatine Kinase 57 Troponin I 0.043 H* Total Protein Albumin Procalcitonin 0.1 U Random Total Protein 8 Ur Random Sodium 68 Ur Random Urea 1079 Urine Creatinine 116.7 Protein/Creat Ratio 2 Influenza A (RT-PCR) Negative Influenza B (RT-PCR) Negative RSV (RT-PCR) Negative SARS-CoV-2 RNA (RT-PCR) Negative 03/09/25 03/10/25 21:24 04:22 WBC 12.9 H RBC 4.45 L Hgb 14.0 D Hct 43.8 MCV 98.4 MCH 31.5 MCHC 32.0 RDW 17.9 H Plt Count 200 MPV 10.5 H Immature Gran % (Auto) 0.8 H Neut % (Auto) 55.5 Lymph % (Auto) 33.4 [place] % (Auto) 7.8 Eos % (Auto) 2.3 Baso % (Auto) 0.2 Lymph # (Auto) 4.31 H [place] # (Auto) 1.0 H Eos # (Auto) 0.3 Baso # (Auto) 0.0 Abs Immat Gran (auto) 0.10 H Absolute Neuts (auto) 7.2 H Absolute Nucleated RBC 0.000 Nucleated RBC % 0.0 Sodium 153 H Potassium 3.4 Chloride 123 H Carbon Dioxide 26 Anion Gap 4 BUN 42 H Creatinine 1.38 H Estim Creat Clear Calc 40 Estimated GFR 50 L Glucose 112 H Calcium 9.3 Phosphorus 3.2 Magnesium 2.3 Total Bilirubin 0.6 AST 21 ALT 18 Alkaline Phosphatase 91 Total Creatine Kinase Troponin I Total Protein 6.3 Albumin 3.3 L Procalcitonin U Random Total Protein Ur Random Sodium Ur Random Urea Urine Creatinine Cancelled Protein/Creat Ratio 2 0.07 Influenza A (RT-PCR) Influenza B (RT-PCR) RSV (RT-PCR) SARS-CoV-2 RNA (RT-PCR)
[2025-03-10] MEDS: cefTRIAXone 1 GM in SODIUM CHLORIDE 0.9% IV 50 ML 100 ML IVPB (19:06)
[2025-03-11] VITALS (14 sets, daily range): BP systolic 111–155; BP diastolic 62–88; PULSE 77–102; RESP 18–22; TEMP 36.4–37.1; O2SAT 93–100
[2025-03-11 06:53] LABS: Hematocrit 46.5 % (42.0-52.0); Hemoglobin 14.6 g/dL (14.0-18.0); Mean Corpuscular HGB Conc 31.4 g/dl (32-36); Mean Corpuscular Hemoglobin 31.7 pg (26-34); Mean Corpuscular Volume 100.9 fl (80-100); Platelet Count Result 174 k/mm3 (150-375); Red Blood Count 4.61 M/mm3 (4.6-6.20); White Blood Count 11.2 K/mm3 (4.5-10.0)
[2025-03-11 07:27] LABS: Anion Gap 7 mmol/L (4-12); Blood Urea Nitrogen 31 mg/dL (9-20); Calcium 9.0 mg/dL (8.4-10.2); Carbon Dioxide 24 mmol/L (22-30); Chloride 124 mmol/L (98-107); Estimated CRCL calculation 45 ml/min; Estimated Glomerular Filt Rate 58; Glucose 84 mg/dL (65-110); Magnesium 2.5 mg/dL (1.6-2.3); Potassium 3.9 mmol/L (3.4-5.0); Sodium 155 mmol/L (137-145)
--- NOTE | 2025-03-11 08:11 | PCSTNOTE ---
Please refer to the Bedside Swallow Evaluation in the EMR. Please note, silent aspiration cannot be ruled out at bedside. The patient is a 75 year old male admitted due to AMS. Orders received to complete a BSE 03/10 and r/o aspiration risk. Based on BSE 03/10 recommend repeat BSE 03/11. The patient was positioned upright. Oral Mechanism exam revealed although limited for range and coordination, improved lingual ROM, coordination, and strength from 03/10. Speech is still dysarthric at single word and phrase responses but more understandable. The patient was less fearful of trials of consistencies and agreeable to trials. The following consistencies were presented: 5cc/tsp thin liquid, 5cc/tsp puree Oral Stage: When presented tsp trials of each consistency the patient demonstrated a delayed oral transit for each due to limited lingual ROM and coordination. No oral residual remained with tsp trials thin liquid placed at midline of tongue. However, with tsp trials applesauce placed more midline the patient was unable to propel the bolus with his tongue posteriorly and [employer] had to finger sweep to clear oral residual. Pharyngeal Stage: When presented the tsp thin liquid the patient demonstrated a delayed and effortful swallow. Vocal quality was clear but patient was only able to propel orally a few liquid trials to initiate a swallow. Recommend 1. NPO and Speech therapy services to initiate therapeutic trials and lingual ROM and tongue base retraction exercises.
[2025-03-11] MEDS: LACTATED RINGERS 1,000 ML 100 ML IV CONT ×2 (10:08→20:06)
[2025-03-11] MEDS: ARTIFICIAL TEARS OPHTH SOLN 15 ML BOTTLE 1 DROP EACH EYE ×3 (10:08→18:46)
[2025-03-11] MEDS: cefTRIAXone 1 GM in SODIUM CHLORIDE 0.9% IV 50 ML 100 ML IVPB (15:41)
--- NOTE | 2025-03-11 16:02 | P.PNIM_ITS ---
Assessment and Plan Assessment and Plan (1) Sepsis: Code(s): A41.9 - Sepsis, unspecified organism Status: Resolved Assessment and Plan: Met sirs criteria due to heart rate, blood pressure, respiratory rate. UA showed soft signs of infection, culture pending. Lactic initially 2.6 with repeat at 2.4 with IV fluids. - blood cultures obtained on 03/09, follow - lactic elevated, check procalcitonin - started on ceftriaxone on 03/09 for suspected UTI - monitor hemodynamic stability, does have cool extremities on exam however temp remains 97.5F and hypotension has resolved with IV fluids (2) CVA (cerebral vascular accident): Qualifiers: CVA mechanism: unspecified Qualified Code(s): I63.9 - Cerebral infarction, unspecified Code(s): I63.9 - Cerebral infarction, unspecified Status: Acute Assessment and Plan: Patient has had failure to thrive since the end of January. Virtually not helping to feed himself, walk, or eating/drinking. Unresponsive today that significantly improved with IV fluids. However CT of the head showed remote bilateral basal ganglia in lacunar infarcts. No previous history of CVA. Reviewed previous head CT from March of 2023, no CVA noted at that time. Remote CVAs could be reason for general decline. Discussed goals of care with the patient's , care coordination consulted for discussions of hospice. Not willing to pursue at this evening and would like to see if he improves at all with fluids, however is open to discussing. - brain MRI - neurology consulted - PT/OT/ST - continue daily aspirin and atorvastatin, add Plavix (3) Acute kidney injury: Code(s): N17.9 - Acute kidney failure, unspecified Status: Acute Assessment and Plan: Previous history of BRIAN related to UTI/dehydration. Has reportedly not been eating or drinking since he was discharged at the end of January. Creatinine 2.21/BUN 56/GFR 29 upon admission. - check CK, urine sodium, protein/creatinine, urine creatinine, urea - monitor I&Os - BRIAN likely related to acute dehydration/poor p.o. intake related to failure to thrive. If no improvement with IV fluids, consider Nephrology consultation (4) Dehydration: Code(s): E86.0 - Dehydration Status: Acute Assessment and Plan: Patient has had failure to thrive since he was discharged at the end of January from this facility. Per he has not been feeding himself or eating/drinking. Profoundly hypotensive upon initial assessment that has resolved with IV fluids. Patient still appears dry on exam. Maintenance fluids continued. BRIAN related to dehydration, see above. (5) Abnormal urinalysis: Code(s): R82.90 - Unspecified abnormal findings in urine Status: Acute Assessment and Plan: UA showed soft signs of infection. Review of systems unreliable due to alteration. However given presence of lactic acidosis and significance of vital sign abnormalities, will pursue broad-spectrum antibiotics. - UA: 2+ leuk esterase and 11-20 WBC - UC pending - previous micro reviewed, Heena in 2022 otherwise no significant resistances - started on Ceftriaxone on 03/09 (6) Elevated troponin: Code(s): R79.89 - Other specified abnormal findings of blood chemistry Status: Acute Assessment and Plan: Her mild elevation in troponin that is thus far been flat (0.052 -> 0.041). EKG when compared to previous from 02/20/2025 there are no significant changes beyond the heart rate increasing. Patient restless and unreliable historian, unclear if he has experienced any chest pain or symptoms concerning for ACS. - trend troponin - telemetry monitoring (7) Hypertension: Qualifiers: Hypertension type: primary hypertension Qualified Code(s): I10 - Essential (primary) hypertension Code(s): I10 - Essential (primary) hypertension Status: Chronic Assessment and Plan: - chronic, currently 118/73. Profoundly hypotensive per EMS. Arrived soft. - HOLD home medications - monitor (8) Hyperthyroidism: Code(s): E05.90 - Thyrotoxicosis, unspecified without thyrotoxic crisis or storm Status: Chronic Assessment and Plan: - reviewed previous lab work, TSH 1.25 on 02/21/2025 - continue methimazole once verified Plan patient was sent to from OR with AMS and unresponsiveness, with hypotension, patient has not been doing well for sometime prior to coming to ER. MRI of brain showed No acute ischemic event, mass or hemorrhage. No abnormal enhancing lesions or masses. Moderately advanced chronic microvascular ischemic appearing changes and probable old bilateral basal ganglia lacunar infarctions most likely cause of confusion, patient will be seen neurologist and further recommendation to follow. today patient is more alert and was able to recognize his and he trying communicate, will monitor have PT/OT work with the patient, patient will benefit going to acute rehab. Diet: NPO except ice chips GI Prophylaxis: N/a DVT Prophylaxis: SCDs IV fluids: 2L -> 100 mL/hr Lines/Tubes: pIV, romano Code Status: DNR Subjective Date/time seen: 03/11/25 16:02 Interval history: AMS H&P-Narrative: 75 y/o M with PMH of chronic anemia, CAD, DVT, dementia, depression, HTN, GERD, peripheral artery disease, PE, TIA, diabetes diet controlled, and venous stasis dermatitis presents here with altered mental status. The patient presents here from [facility] via EMS on 03/09 for further evaluation of generalized weakness and unresponsiveness/altered mental status. Per EMS report, patient initially had a BP of 60/23 to 78/50, heart rate in the 120s, cold to the touch, and patient was able to open eyes to voice and nod to questions. HPI largely obtained through the patient's . Per her report he has not been eating/drinking or able to care for himself since he was discharged from this facility on 02/25. He will not walk at all, won't feed himself, and has been confused since the last UTI which was not his baseline prior to that admission. Did not recognize his this week which is unusual for him. Last admission from 02/20-02/25 and was treated for diarrhea, worsening confusion, and a UTI. Was A&O x3 upon admission with no focal deficits. Improved with IV fluids and initiation of antibiotics. Today he arrives A&O to self only with some difficulty following commands. Initial VS at presentation: HR 105, R 28, 85/52, 100% on a non-rebreather. Now 98% on 2 L nasal cannula. ED workup showed: WBC 16.7, hemoglobin 17.6 (previously 14.0 on 02/25/2025), sodium 160, creatinine 2.21 and GFR 29 (previously 0.73 and GFR >60 on 02/25), glucose 136, lactic 2.6, troponin 0.052, CRP negative, and UA showed soft indications of infection including 2+ leuk esterase and 11-20 WBC with no epithelial cells. CXR showed mild left basilar discoid atelectasis with mild elevation of the left hemidiaphragm. Head CT showed no acute intracranial abnormality. CT of the abdomen/pelvis showed no focal process to explain patient's symptoms. patient was sent to from OR with AMS and unresponsiveness, with hypotension, patient has not been doing well for sometime prior to coming to ER. MRI of brain showed No acute ischemic event, mass or hemorrhage. No abnormal enhancing lesions or masses. Moderately advanced chronic microvascular ischemic appearing changes and probable old bilateral basal ganglia lacunar infarctions most likely cause of confusion, patient will be seen neurologist and further recommendation to follow. today patient is more alert and was able to recognize his and he trying communicate, will monitor have PT/OT work with the patient, patient will benefit going to acute rehab. Exam Narrative: Patient is comfortable, NAD HEENT: eyes are clear and none icteric LUNGS:CTA HEART: RR S1S2 ABD: BS+, Soft and nontender Lower extremities: no edema SKIN: nonjaundiced Neuro: grossly intact. Objective Data Vital Signs Vital Signs: Vital Signs - 24 hr 03/10/25 18:00 03/10/25 20:00 03/10/25 20:00 Temperature Pulse Rate 73 80 Respiratory Rate Blood Pressure Pulse Oximetry Oxygen Delivery Room Air 03/10/25 20:14 03/10/25 22:00 03/11/25 00:00 Temperature 36.7 C Pulse Rate 82 83 Respiratory Rate 18 Blood Pressure 153/77 H Pulse Oximetry 95 Oxygen Delivery Room Air 03/11/25 00:00 03/11/25 02:00 03/11/25 04:00 Temperature Pulse Rate 86 85 Respiratory Rate Blood Pressure Pulse Oximetry Oxygen Delivery Room Air 03/11/25 04:00 03/11/25 04:36 03/11/25 06:00 Temperature 36.7 C Pulse Rate 77 84 83 Respiratory Rate 20 Blood Pressure 153/62 H Pulse Oximetry 100 Oxygen Delivery 03/11/25 07:45 03/11/25 08:00 03/11/25 08:00 Temperature 36.4 C Pulse Rate 79 88 88 Respiratory Rate 22 H 18 Blood Pressure 155/74 H Pulse Oximetry 97 96 Oxygen Delivery Room Air 03/11/25 10:00 03/11/25 11:53 03/11/25 11:59 Temperature 36.6 C Pulse Rate 86 86 Respiratory Rate 18 Blood Pressure 111/72 Pulse Oximetry 95 96 Oxygen Delivery Room Air 03/11/25 12:00 03/11/25 12:00 03/11/25 14:00 Temperature Pulse Rate 102 H 91 90 Respiratory Rate 18 Blood Pressure Pulse Oximetry 96 Oxygen Delivery Room Air Intake/Output Intake/Output: Intake & Output 03/08/25 03/09/25 03/10/25 03/11/25 23:59 23:59 23:59 23:59 Intake Total 2050 3030 1000 Output Total 550 675 450 Balance 1500 2355 550 Meds/Results Medications: Active Medications Generic Name Dose Route Start Last Admin Trade Name Freq PRN Reason Stop Dose Admin Acetaminophen 650 mg 03/10/25 08:49 Acetaminophen 325 Mg Tablet PO Q6H PRN Pain (Scale Score 1-3) Artificial Tears 1 drop 03/10/25 09:00 03/11/25 15:41 Artificial Tears Ophth Soln 15 Ml Bottle EACH EYE 1 drop TID MYA Administration Aspirin 81 mg 03/10/25 09:00 03/11/25 10:37 Aspirin 81 Mg Chewable Tablet PO Not Given DAILY MYA Atorvastatin Calcium 80 mg 03/10/25 21:00 03/10/25 21:02 Atorvastatin 40 Mg Tablet PO Not Given HS MYA Bisacodyl 5 mg 03/09/25 15:26 Bisacodyl 5 Mg Tablet Ec PO DAILY PRN Constipation Clopidogrel Bisulfate 75 mg 03/10/25 09:00 03/11/25 10:37 Clopidogrel Bisulfate 75 Mg Tablet PO Not Given QAM [facility] Docusate Sodium 100 mg 03/10/25 09:00 03/11/25 10:38 Docusate Sodium 100 Mg Capsule PO Not Given BID [facility] Ergocalciferol 1,250 mcg 03/15/25 09:00 Ergocalciferol (Vitamin D2) 1,250 Mcg (50,000 Units) Capsule PO Mo@0900 [facility] Ferrous Sulfate 325 mg 03/10/25 09:00 03/11/25 10:38 Ferrous Sulfate 325 Mg Tablet PO Not Given DAILY MYA Finasteride 5 mg 03/10/25 09:00 03/11/25 10:38 Finasteride 5 Mg Tablet PO Not Given DAILY MYA Furosemide 40 mg 03/10/25 09:00 03/11/25 10:38 Furosemide 40 Mg Tablet PO Not Given BID [facility] Guaifenesin 600 mg 03/10/25 08:36 Guaifenesin 12 Hr 600 Mg Tabcr PO BID PRN Congestion Lactated Ringer's 1,000 mls @ 100 mls/hr 03/09/25 15:25 03/11/25 10:08 Lr - Lactated Ringers Iv IV CONT 100 mls/hr .Q10H MYA Administration Ceftriaxone Sodium 1 gm/ 50 mls @ 100 mls/hr 03/09/25 16:00 03/11/25 15:41 Sodium Chloride IVPB 100 mls/hr Q24H MYA Administration Methimazole 5 mg 03/10/25 09:00 03/11/25 10:38 Methimazole 5 Mg Tab PO Not Given DAILY MYA Morphine Sulfate 2 mg 03/10/25 21:29 Morphine Sulfate (*Crx) 4 Mg/Ml Inj IV PUSH Q4H PRN Pain Rated 7-10 Olanzapine 7.5 mg 03/10/25 21:00 03/10/25 21:02 Olanzapine 2.5 Mg Tablet PO Not Given HS [facility] Ondansetron HCl 4 mg 03/09/25 15:26 Ondansetron Inj 4 Mg/2 Ml Vial IV PUSH Q6H PRN Nausea And Vomiting Polyethylene Glycol 17 gm 03/10/25 08:36 Polyethylene Glycol 3350 17 Gm Powd.Pack PO DAILY PRN Constipation Sertraline HCl 75 mg 03/10/25 09:00 03/11/25 10:38 Sertraline Hcl 25 Mg Tablet PO Not Given DAILY [facility] Sucralfate 1 gm 03/10/25 11:30 03/11/25 15:41 Sucralfate 1 Gm Tablet PO Not Given ACHS [facility] Tamsulosin HCl 0.4 mg 03/10/25 21:00 03/10/25 21:03 Tamsulosin Hcl 0.4 Mg Capsule PO Not Given HS [facility] Venlafaxine HCl 75 mg 03/10/25 08:55 03/11/25 10:37 Venlafaxine Hcl 75 Mg Tablet PO Not Given BIDWM [facility] Radiology Results: ITS Impressions Chest X-Ray 03/09/25 12:47 IMPRESSION: 1. Mild left basilar discoid atelectasis with mild elevation of the left hemidiaphragm. Head CT 03/09/25 13:36 Impression: 1.No acute intracranial abnormality. Abdomen/Pelvis CT 03/09/25 13:45 IMPRESSION: Directed noncontrast exam demonstrating no focal acute process to explain source of patient's symptoms. See other comments above. Brain MRI 03/10/25 12:50 IMPRESSION: 1. No acute ischemic event, mass or hemorrhage. No abnormal enhancing lesions or masses. 2. Moderately advanced chronic microvascular ischemic appearing changes and probable old bilateral basal ganglia lacunar infarctions. Labs Labs: Laboratory Results - last 24 hr 03/11/25 03/11/25 06:46 11:12 WBC 11.2 H RBC 4.61 Hgb 14.6 Hct 46.5 MCV 100.9 H MCH 31.7 MCHC 31.4 L RDW 17.0 H Plt Count 174 MPV 10.2 Sodium 155 H Potassium 3.9 Chloride 124 H Carbon Dioxide 24 Anion Gap 7 BUN 31 H D Creatinine 1.22 Estim Creat Clear Calc 45 Estimated GFR 58 L Glucose 84 POC Capillary Glucose 79 Calcium 9.0 Magnesium 2.5 H
[2025-03-12] MEDS: LACTATED RINGERS 1,000 ML 100 ML IV CONT (05:48)
[2025-03-12 06:24] LABS: Hematocrit 44.6 % (42.0-52.0); Hemoglobin 14.1 g/dL (14.0-18.0); Mean Corpuscular HGB Conc 31.6 g/dl (32-36); Mean Corpuscular Hemoglobin 31.9 pg (26-34); Mean Corpuscular Volume 100.9 fl (80-100); Platelet Count Result 174 k/mm3 (150-375); Red Blood Count 4.42 M/mm3 (4.6-6.20); White Blood Count 10.4 K/mm3 (4.5-10.0)
[2025-03-12 06:31] VITALS: BP 133/78; PULSE 88; RESP 20; TEMP 36.8; O2SAT 100
[2025-03-12 06:54] LABS: Anion Gap 3 mmol/L (4-12); Blood Urea Nitrogen 25 mg/dL (9-20); Calcium 9.0 mg/dL (8.4-10.2); Carbon Dioxide 27 mmol/L (22-30); Chloride 121 mmol/L (98-107); Estimated CRCL calculation 50 ml/min; Estimated Glomerular Filt Rate > 60; Glucose 79 mg/dL (65-110); Magnesium 2.4 mg/dL (1.6-2.3); Potassium 3.6 mmol/L (3.4-5.0); Sodium 151 mmol/L (137-145)
[2025-03-12 08:00] VITALS: BP 153/91; PULSE 81; RESP 14; TEMP 36.9; O2SAT 98
--- NOTE | 2025-03-12 08:50 | P.PNIM_ITS ---
Assessment and Plan Assessment and Plan (1) Sepsis: Code(s): A41.9 - Sepsis, unspecified organism Status: Resolved Assessment and Plan: Met sirs criteria due to heart rate, blood pressure, respiratory rate. UA showed soft signs of infection, culture pending. Lactic initially 2.6 with repeat at 2.4 with IV fluids. - blood cultures obtained on 03/09, follow - lactic elevated, check procalcitonin - started on ceftriaxone on 03/09 for suspected UTI - monitor hemodynamic stability, does have cool extremities on exam however temp remains 97.5F and hypotension has resolved with IV fluids (2) CVA (cerebral vascular accident): Qualifiers: CVA mechanism: unspecified Qualified Code(s): I63.9 - Cerebral infarction, unspecified Code(s): I63.9 - Cerebral infarction, unspecified Status: Acute Assessment and Plan: Patient has had failure to thrive since the end of January. Virtually not helping to feed himself, walk, or eating/drinking. Unresponsive today that significantly improved with IV fluids. However CT of the head showed remote bilateral basal ganglia in lacunar infarcts. No previous history of CVA. Reviewed previous head CT from March of 2023, no CVA noted at that time. Remote CVAs could be reason for general decline. Discussed goals of care with the patient's , care coordination consulted for discussions of hospice. Patient's mental status improving with fluids. Deferring further discussions until sodium corrected. 03/[address] showed 1.No acute intracranial abnormality. Noted remote basal gang jaci lacunar infarcts. Prior CT 03/2023 no note of basal ganglia lacunar infarcts 03/10 Brain MRI 1. No acute ischemic event, mass or hemorrhage. No abnormal enhancing lesions or masses. 2. Moderately advanced chronic microvascular ischemic appearing changes and probable old bilateral basal ganglia lacunar infarctions. Patient's reports he was ambulating with a walker prior to admission 02/20- 02/25. Hasn't walked since the last admission. 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 Had an PA in 2021 and confusion after that hospitalization that eventually improved. Acute confusion recently is new in the setting of dehydration/BRIAN and recent GI symptoms --Neurology consulted, appreciate recommendations. - PT/OT/ST - continue daily aspirin and atorvastatin, added Plavix (3) Acute kidney injury: Code(s): N17.9 - Acute kidney failure, unspecified Status: Acute Assessment and Plan: Previous history of BRIAN related to UTI/dehydration. Has reportedly not been eating or drinking since he was discharged at the end of January. Creatinine 2.21/BUN 56/GFR 29 upon admission. CK 57. Urine sodium 68, protein/creatinine ratio 0.07, urine creatinine 116, urea 1079 - monitor I&Os, 900ml out yesterday - BRIAN likely related to acute dehydration/poor p.o. intake related to failure to thrive. Creatinine improving with fluids: 2.21>0.99 (4) Dehydration: Code(s): E86.0 - Dehydration Status: Acute Assessment and Plan: Patient has had failure to thrive since he was discharged at the end of January from this facility. Per he has not been feeding himself or eating/drinking. Profoundly hypotensive upon initial assessment that has resolved with IV fluids. Patient still appears dry on exam. Maintenance fluids continued. BRIAN related to dehydration, see above. (5) Abnormal urinalysis: Code(s): R82.90 - Unspecified abnormal findings in urine Status: Acute Assessment and Plan: UA showed soft signs of infection. Review of systems unreliable due to alteration. However given presence of lactic acidosis and significance of vital sign abnormalities, will pursue broad-spectrum antibiotics. - UA: 2+ leuk esterase and 11-20 WBC - UC pending - previous micro reviewed, Heena in 2022 otherwise no significant resistances - started on Ceftriaxone on 03/09 (6) Elevated troponin: Code(s): R79.89 - Other specified abnormal findings of blood chemistry Status: Acute Assessment and Plan: Her mild elevation in troponin that is thus far been flat (0.052 -> 0.041). EKG when compared to previous from 02/20/2025 there are no significant changes beyond the heart rate increasing. Patient restless and unreliable historian, unclear if he has experienced any chest pain or symptoms concerning for ACS. - trend troponin - telemetry monitoring (7) Hypertension: Qualifiers: Hypertension type: primary hypertension Qualified Code(s): I10 - Essential (primary) hypertension Code(s): I10 - Essential (primary) hypertension Status: Chronic Assessment and Plan: - chronic, currently 118/73. Profoundly hypotensive per EMS. Arrived soft. - HOLD home medications - monitor (8) Hyperthyroidism: Code(s): E05.90 - Thyrotoxicosis, unspecified without thyrotoxic crisis or storm Status: Chronic Assessment and Plan: - reviewed previous lab work, TSH 1.25 on 02/21/2025 - continue methimazole once verified (9) Hypernatremia: Code(s): E87.0 - Hyperosmolality and hypernatremia Status: Acute Assessment and Plan: Sodium 160 on admission, improving with LR 160>151. Repeat labs this afternoon Change LR @100 to D5 1/2 @50, recheck labs this afternoon Plan patient was sent to from [place] with AMS and unresponsiveness, with hypotension, patient has not been doing well for sometime prior to coming to ER. MRI of brain showed No acute ischemic event, mass or hemorrhage. No abnormal enhancing lesions or masses. Moderately advanced chronic microvascular ischemic appearing changes and probable old bilateral basal ganglia lacunar infarctions most likely cause of confusion, patient will be seen neurologist and further recommendation to follow. today patient is more alert and was able to recognize his and he trying communicate, will monitor have PT/OT work with the patient, patient will benefit going to acute rehab. Diet: Pureed with mildly thick liquids (MBS 03/12). Speech following GI Prophylaxis: N/a DVT Prophylaxis: SCDs IV fluids: 2L -> 100 mL/hr, D51/2 @50 Lines/Tubes: pIV, romano Code Status: DNR Time Spent With Patient Time with patient: Greater than 35 minutes Subjective Date/time seen: 03/12/25 08:50 Interval history: VSS. BP above goal, 153/91 Sodium 155>151 Hold Furosemide 40 BID. Change LR to D5 1/2@50/hr. Check BMP at 2pm Has CHF, LVEF 30-35% Echo in 2022 Urine and blood cultures no growth MBS with speech today, changed to pureed and mildly thick. Potassium 3.4, giving 40meq IV today Review of Systems Review of Systems: ROS unobtainable: Yes unobtainable due to mental status Exam Narrative: General - Awake, sleeps easily. No acute distress Eyes - PERRLA, EOM intact ENT - No thrush, No erythema Neck - No noticeable or palpable swelling Lymph Nodes - No lymphadenopathy Cardiovascular - RRR no m/r/g, no JVD Lungs: Clear to auscultation, No wheezing, no use of accessory muscles, no crackles Skin - Skin warm and dry, no wounds or rashes Abdomen - Normal bowel sounds, abdomen soft and nontender Extremities - No edema, cyanosis or clubbing Musculoskeletal - 4/5 strength, normal range of motion, no swollen or erythematous joints. Neurological ? Alert and oriented x 1-2, CN 2-12 grossly intact. Psych: Calm, cooperative, poor attention Objective Data Vital Signs Vital Signs: Vital Signs - 24 hr 03/11/25 10:00 03/11/25 11:53 03/11/25 11:59 Temperature 97.9 F Pulse Rate 86 86 Respiratory Rate 18 Blood Pressure 111/72 Pulse Oximetry 95 96 Oxygen Delivery Room Air 03/11/25 12:00 03/11/25 12:00 03/11/25 14:00 Temperature Pulse Rate 102 H 91 90 Respiratory Rate 18 Blood Pressure Pulse Oximetry 96 Oxygen Delivery Room Air 03/11/25 16:00 03/11/25 16:00 03/11/25 16:00 Temperature 97.5 F L Pulse Rate 87 87 87 Respiratory Rate 20 20 Blood Pressure 133/88 Pulse Oximetry 93 93 Oxygen Delivery Room Air 03/11/25 20:38 03/12/25 06:31 03/12/25 08:00 Temperature 98.8 F 98.3 F 98.4 F Pulse Rate 84 88 81 Respiratory Rate 20 20 14 Blood Pressure 141/72 H 133/78 153/91 H Pulse Oximetry 95 100 98 Oxygen Delivery Intake/Output Intake/Output: Intake & Output 03/09/25 03/10/25 03/11/25 03/12/25 23:59 23:59 23:59 23:59 Intake Total 0 3030 1996.7 970 Output Total 550 675 900 700 Balance 1500 2355 1096.7 270 Meds/Results Medications: Active Medications Generic Name Dose Route Start Last Admin Trade Name Freq PRN Reason Stop Dose Admin Acetaminophen 650 mg 03/10/25 08:49 Acetaminophen 325 Mg Tablet PO Q6H PRN Pain (Scale Score 1-3) Artificial Tears 1 drop 03/10/25 09:00 03/11/25 18:46 Artificial Tears Ophth Soln 15 Ml Bottle EACH EYE 1 drop TID MYA Administration Aspirin 81 mg 03/10/25 09:00 03/11/25 10:37 Aspirin 81 Mg Chewable Tablet PO Not Given DAILY MYA Atorvastatin Calcium 80 mg 03/10/25 21:00 03/11/25 22:08 Atorvastatin 40 Mg Tablet PO Not Given HS MYA Bisacodyl 5 mg 03/09/25 15:26 Bisacodyl 5 Mg Tablet Ec PO DAILY PRN Constipation Clopidogrel Bisulfate 75 mg 03/10/25 09:00 03/11/25 10:37 Clopidogrel Bisulfate 75 Mg Tablet PO Not Given QAM [facility] Docusate Sodium 100 mg 03/10/25 09:00 03/11/25 18:46 Docusate Sodium 100 Mg Capsule PO Not Given BID MYA Ergocalciferol 1,250 mcg 03/15/25 09:00 Ergocalciferol (Vitamin D2) 1,250 Mcg (50,000 Units) Capsule PO Mo@0900 [facility] Ferrous Sulfate 325 mg 03/10/25 09:00 03/11/25 10:38 Ferrous Sulfate 325 Mg Tablet PO Not Given DAILY [facility] Finasteride 5 mg 03/10/25 09:00 03/11/25 10:38 Finasteride 5 Mg Tablet PO Not Given DAILY [facility] Furosemide 40 mg 03/10/25 09:00 03/11/25 18:46 Furosemide 40 Mg Tablet PO Not Given BID [facility] Guaifenesin 600 mg 03/10/25 08:36 Guaifenesin 12 Hr 600 Mg Tabcr PO BID PRN Congestion Lactated Ringer's 1,000 mls @ 100 mls/hr 03/09/25 15:25 03/12/25 05:48 Lr - Lactated Ringers Iv IV CONT 100 mls/hr .Q10H MYA Administration Ceftriaxone Sodium 1 gm/ 50 mls @ 100 mls/hr 03/09/25 16:00 03/11/25 15:41 Sodium Chloride IVPB 100 mls/hr Q24H MYA Administration Methimazole 5 mg 03/10/25 09:00 03/11/25 10:38 Methimazole 5 Mg Tab PO Not Given DAILY [facility] Morphine Sulfate 2 mg 03/10/25 21:29 Morphine Sulfate (*Crx) 4 Mg/Ml Inj IV PUSH Q4H PRN Pain Rated 7-10 Olanzapine 7.5 mg 03/10/25 21:00 03/11/25 22:08 Olanzapine 2.5 Mg Tablet PO Not Given HS [facility] Ondansetron HCl 4 mg 03/09/25 15:26 Ondansetron Inj 4 Mg/2 Ml Vial IV PUSH Q6H PRN Nausea And Vomiting Polyethylene Glycol 17 gm 03/10/25 08:36 Polyethylene Glycol 3350 17 Gm Powd.Pack PO DAILY PRN Constipation Sertraline HCl 75 mg 03/10/25 09:00 03/11/25 10:38 Sertraline Hcl 25 Mg Tablet PO Not Given DAILY MYA Sucralfate 1 gm 03/10/25 11:30 03/12/25 05:43 Sucralfate 1 Gm Tablet PO Not Given ACHS MYA Tamsulosin HCl 0.4 mg 03/10/25 21:00 03/11/25 22:09 Tamsulosin Hcl 0.4 Mg Capsule PO Not Given HS MYA Venlafaxine HCl 75 mg 03/10/25 08:55 03/11/25 18:46 Venlafaxine Hcl 75 Mg Tablet PO Not Given BIDWM [facility] Radiology Results: ITS Impressions Chest X-Ray 03/09/25 12:47 IMPRESSION: 1. Mild left basilar discoid atelectasis with mild elevation of the left hemidiaphragm. Head CT 03/09/25 13:36 Impression: 1.No acute intracranial abnormality. Abdomen/Pelvis CT 03/09/25 13:45 IMPRESSION: Directed noncontrast exam demonstrating no focal acute process to explain source of patient's symptoms. See other comments above. Brain MRI 03/10/25 12:50 IMPRESSION: 1. No acute ischemic event, mass or hemorrhage. No abnormal enhancing lesions or masses. 2. Moderately advanced chronic microvascular ischemic appearing changes and probable old bilateral basal ganglia lacunar infarctions. Labs Labs: Laboratory Results - last 24 hr 03/11/25 03/11/25 03/12/25 11:12 15:33 05:59 WBC 10.4 H RBC 4.42 L Hgb 14.1 Hct 44.6 MCV 100.9 H MCH 31.9 MCHC 31.6 L RDW 16.6 H Plt Count 174 MPV 10.5 H Sodium 151 H Potassium 3.6 Chloride 121 H Carbon Dioxide 27 Anion Gap 3 L BUN 25 H Creatinine 1.09 Estim Creat Clear Calc 50 Estimated GFR > 60 Glucose 79 POC Capillary Glucose 79 72 Calcium 9.0 Magnesium 2.4 H Quality VTE Prophylaxis VTE prophylaxis: mechanical ordered Hospitalist [facility] Advance Care Plan I have confirmed that the patient's Advanced Care Plan is present, code status is documented, or surrogate decision maker is listed in patient medical record.: Yes Medication Reconciliation I have utilized all available resources to obtain, update and review the patients current medications (includes all prescriptions, OTC, herbals, cannabis, and nutritional supplements).: Yes
[2025-03-12] MEDS: DEXTROSE 5%/0.45% SOD CHL 1,000 ML 50 ML IV CONT (09:41)
[2025-03-12] MEDS: MORPHINE SULFATE (*CRX) 4 MG/ML INJ 2 MG IV PUSH (09:52)
[2025-03-12 15:02] LABS: Anion Gap 1 mmol/L (4-12); Blood Urea Nitrogen 23 mg/dL (9-20); Calcium 8.8 mg/dL (8.4-10.2); Carbon Dioxide 27 mmol/L (22-30); Chloride 122 mmol/L (98-107); Estimated CRCL calculation 55 ml/min; Estimated Glomerular Filt Rate > 60; Glucose 94 mg/dL (65-110); Potassium 3.4 mmol/L (3.4-5.0); Sodium 150 mmol/L (137-145)
--- NOTE | 2025-03-12 15:23 | PCSTNOTE ---
Please refer to the Modified Barium Swallow Evaluation in the EMR. The patient is a 75 year old male s/p CVA diagnosis with concerns for aspiration risk based on a BSE 03/11 and 03/12. The patient was positioned in a lateral view and presented the following consistencies: 5cc/tsp thin liquid barium, cup trials thin liquid barium, cup trials mildly thick liquid barium, pudding mixed with barium paste, and cracker piece coated with barium paste. Oral Stage: When presented tsp and cup trials of thin and mildly thick liquid the patient had loss of bolus due to decreased labial seal with thin liquid trials but improved oral control with a thicker mildly thick consistency. Extra time was required to form a cohesive bolus and propel posteriorly due to limited lingual ROM, Coordination, and control. When presented small pieces of cracker coated with pudding mixed with barium paste, the patient was unable to effectively soften and masticate the solid piece and material remained in the anterior sulcus on the tongue tip. The patient needed additional time to formulate a bolus and propel posteriorly for pudding thickness but was able to propel more timely due to the thicker viscosity. No residual was viewed to remain in the vallecula or pyriform sinus, or aspiration or penetration viewed across consistencies. Recommend: 1. Puree Diet / Level 4 2. Mildly Thick Liquid / Level 2 3. Small bites and drinks via tsp for improved oral control 4. Upright with meals 5. No Straw 6. One on one supervision 7. Continued speech services. Thank you for the consult.
[2025-03-12 16:00] VITALS: BP 134/72; PULSE 72; RESP 16; TEMP 36.9; O2SAT 100
[2025-03-12] MEDS: VENLAFAXINE HCL 75 MG TABLET PO (16:37)
[2025-03-12] MEDS: cefTRIAXone 1 GM in SODIUM CHLORIDE 0.9% IV 50 ML 100 ML IVPB (16:38)
[2025-03-12] MEDS: POTASSIUM CHLORIDE INJ 40 MEQ in SODIUM CHLORIDE 0.9% IV 500 ML 130 MEQ IVPB (16:38)
[2025-03-12 20:52] VITALS: BP 115/80; PULSE 72; RESP 18; TEMP 36.4; O2SAT 100
[2025-03-12] MEDS: TAMSULOSIN HCL 0.4 MG CAPSULE PO (21:32)
[2025-03-12] MEDS: ATORVASTATIN 40 MG TABLET 80 MG PO (21:32)
[2025-03-12] MEDS: SUCRALFATE 1 GM TABLET PO (21:32)
[2025-03-12] MEDS: ACETAMINOPHEN 325 MG TABLET 650 MG PO (21:34)
--- NOTE | 2025-03-13 | ECHO_ITS ---
Patient Info Name: Juan Pablo Almaraz Age: 75 years : 1950 Gender: Male Ht: 69 in Wt: 193 lbs BSA: 2.08 m2 HR: 80 bpm BP: 130 / 90 mmHg Heart Rhythm: Sinus Rhythm Technical Quality: Poor Exam Date: 03/13/2025 10:49 AM Patient Status: I Admit Date: 03/09/2025 Exam Type: CA echo dop color flow w con Complete two-dimensional, color flow and Doppler transthoracic echocardiogram is performed with contrast to opacify the left ventricle and to improve the deliniation of the left ventricle endocardial borders. Staff Referring Physician: Jenna Mojica Refractory Repairer: Emerald Collier Attending Provider: Yamileth Santiago Contrast/Agitated Saline Contrast/Ag. Saline: Definity Amount: 2.00 ml Administered By: Emerald Collier Existing IV Access: Yes IV Access Condition: patent with no signs of infiltration Summary 1. Left ventricular size appeared to be normal. Unable to estimate ejection fraction due to poor visualization despite administering IV contrast. 2. Technically very difficult study. Left Ventricle Left ventricular chamber dimension is normal. Left ventricular size appeared to be normal. Unable to estimate ejection fraction due to poor visualization despite administering IV contrast. There is no increased left ventricular wall thickness. Left ventricular septal wall motion is normal. The left ventricular diastolic function is grade I diastolic dysfunction. Right Ventricle Right ventricular chamber dimension is normal. Right ventricular systolic function is normal. Left Atria Left atrial chamber dimension is normal. Right Atria Right atrial chamber dimension is normal. Aortic Valve The aortic valve is probable trileaflet. There is no aortic valve sclerosis. There is no aortic valve stenosis. There is no aortic valve regurgitation. There is mild aortic valve calcification. Pulmonic Valve The pulmonic valve is normal. There is no pulmonic valve stenosis. There is no pulmonic regurgitation. Mitral Valve The mitral valve has normal leaflets. There is no mitral valve stenosis. There is no mitral valve regurgitation. Tricuspid Valve The tricuspid valve leaflets are normal. There is no significant tricuspid valve stenosis. There is no tricuspid valve regurgitation. Pericardium/Pleural The pericardium appears normal. There is no pericardial effusion. Inferior Vena Cava Not well visualized inferior vena cava. Aorta The aortic root size at the sinus of Valsalva is normal. The prox ascending aorta size is normal. Left Ventricular Outflow Tract Name Value Normal LVOT 2D LVOT Diameter 2.0 cm LVOT Doppler LVOT Peak Velocity 74 cm/s LVOT Peak Gradient 2 mmHg LVOT Mean Gradient 1 mmHg LVOT VTI 16 cm LVOT VTI/AV VTI Ratio 0.5 LVOT Stroke Volume 50 ml LVOT CO 4.0 l/min LVOT CI 1.9 l/min/m2 Pulmonic Valve Name Value Normal RVOT Doppler RVOT Peak Velocity 83 cm/s RVOT Peak Gradient 3 mmHg PV Doppler PV Peak Velocity 110 cm/s PV Peak Gradient 5 mmHg Mitral Valve Name Value Normal MV Diastolic Function MV E Peak Velocity 60 cm/s MV A Peak Velocity 80 cm/s MV E/A 0.7 MV Decel Time (PW) 228 ms MV Annular TDI MV E/e' (Septal) 11.9 MV E/e' (Lateral) 7.8 MV E/e' (Average) 9.9 Tricuspid Valve Name Value Normal TV Annular TDI TV Lateral Izzy s' Velocity 6.2 cm/s >=9.5 Aortic Valve Name Value Normal AV Doppler AV Peak Velocity 164 cm/s AV Peak Gradient 11 mmHg AV Mean Gradient 5 mmHg AV VTI 30 cm AV Area (Cont Eq VTI) 1.7 cm2 >=3.0 AV Area (Cont Eq Jc) 1.4 cm2 AV DI (Jc) 0.45 AV Regurgitation 2D LVOT Area 3.2 cm2 Ventricles Name Value Normal LV Dimensions 2D/MM IVS Diastolic Thickness (2D) 1.0 cm 0.6-1.0 LVID Diastole (2D) 5.0 cm 4.2-5.8 LVIW Diastolic Thickness (2D) 1.0 cm 0.6-1.0 LVID Systole (2D) 3.3 cm 2.5-4.0 LVOT Diameter 2.0 cm LV Mass (2D Cubed) 194.24 g 88.00-224.00 LV Mass Index (2D Cubed) 93 g/m2 49-115 Relative Wall Thickness (2D) 0.41 <=0.42 LV Fractional Shortening/Ejection Fraction 2D/MM LV Fractional Shortening (2D) 35 % 25-43 LV EF (2D Teichholz) 64 % Atria Name Value Normal LA Dimensions LA Volume (4C A-L) 43 ml LA Volume (BP A-L) 51 ml Report Signatures
[2025-03-13] MEDS: SUCRALFATE 1 GM TABLET PO ×2 (05:41→20:26)
[2025-03-13 06:29] VITALS: BP 135/63; PULSE 70; RESP 18; TEMP 36.5; O2SAT 97
[2025-03-13 06:42] LABS: Hematocrit 40.7 % (42.0-52.0); Hemoglobin 13.5 g/dL (14.0-18.0); Mean Corpuscular HGB Conc 33.2 g/dl (32-36); Mean Corpuscular Hemoglobin 33.5 pg (26-34); Mean Corpuscular Volume 101.0 fl (80-100); Platelet Count Result 154 k/mm3 (150-375); Red Blood Count 4.03 M/mm3 (4.6-6.20); White Blood Count 9.1 K/mm3 (4.5-10.0)
[2025-03-13 07:03] LABS: Anion Gap 4 mmol/L (4-12); Blood Urea Nitrogen 18 mg/dL (9-20); Calcium 8.8 mg/dL (8.4-10.2); Carbon Dioxide 24 mmol/L (22-30); Chloride 122 mmol/L (98-107); Estimated CRCL calculation 64 ml/min; Estimated Glomerular Filt Rate > 60; Glucose 97 mg/dL (65-110); Magnesium 2.4 mg/dL (1.6-2.3); Potassium 3.3 mmol/L (3.4-5.0); Sodium 150 mmol/L (137-145)
[2025-03-13 08:00] VITALS: BP 130/70; PULSE 86; RESP 16; TEMP 36.8; O2SAT 95
[2025-03-13] MEDS: FINASTERIDE 5 MG TABLET PO (09:24)
[2025-03-13] MEDS: SERTRALINE HCL 25 MG TABLET 75 MG PO (09:24)
[2025-03-13] MEDS: FERROUS SULFATE 325 MG TABLET PO (09:24)
[2025-03-13] MEDS: CLOPIDOGREL BISULFATE 75 MG TABLET PO (09:24)
[2025-03-13] MEDS: ASPIRIN 81 MG CHEWABLE TABLET PO (09:24)
[2025-03-13] MEDS: VENLAFAXINE HCL 75 MG TABLET PO ×2 (09:24→16:39)
--- NOTE | 2025-03-13 09:52 | PM.IMPN2 ---
Assessment and Plan Assessment and Plan (1) Dehydration: Code(s): E86.0 - Dehydration Status: Acute Assessment and Plan: Patient has had failure to thrive since he was discharged at the end of January from this facility. Per he has not been feeding himself or eating/drinking. Profoundly hypotensive upon initial assessment that has resolved with IV fluids. Patient still appears dry on exam. Maintenance fluids continued. BRIAN related to dehydration, see above. Stopped diuretics. No longer hypotensive --Calorie count, transition rn consult. Follow PO intake (2) Delirium: Code(s): R41.0 - Disorientation, unspecified Status: Acute Assessment and Plan: Hx CVA Patient has had failure to thrive since the end of January, Was admitted with dehydration and diarrhea. Unclear Virtually not helping to feed himself, walk, or eating/drinking. Unresponsive and hypotensive. Has that significantly improved with IV fluids. However CT of the head showed remote bilateral basal ganglia in lacunar infarcts. No previous history of CVA. Reviewed previous head CT from March of 2023, no CVA noted at that time. Remote CVAs could be reason for general decline. Discussed goals of care with the patient's , care coordination consulted for discussions of hospice. Patient's mental status improving with fluids. Deferring further discussions until sodium corrected. 03/[address] showed 1.No acute intracranial abnormality. Noted remote basal ganglia lacunar infarcts. Prior CT 03/2023 no note of basal ganglia lacunar infarcts 03/10 Brain MRI 1. No acute ischemic event, mass or hemorrhage. No abnormal enhancing lesions or masses. 2. Moderately advanced chronic microvascular ischemic appearing changes and probable old bilateral basal ganglia lacunar infarctions. Patient's reports he was ambulating with a walker prior to admission 02/20-02/25. Hasn't walked since the last admission. 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 Had an NE in 2021 and confusion after that hospitalization that eventually improved. Acute confusion recently is new in the setting of dehydration/BRIAN and recent GI symptoms. Also profoundly hypotensive prior to admission --Neurology consulted, follow recommendations. - PT/OT/ST - continue daily aspirin and atorvastatin, added Plavix --B12, TSH (3) Sepsis: Code(s): A41.9 - Sepsis, unspecified organism Status: Resolved Assessment and Plan: Met sirs criteria due to heart rate, blood pressure, respiratory rate. UA showed soft signs of infection, culture pending. Lactic initially 2.6 with repeat at 2.4 with IV fluids. - blood cultures obtained on 03/09, follow - lactic elevated, check procalcitonin - started on ceftriaxone on 03/09 for suspected UTI - monitor hemodynamic stability, does have cool extremities on exam however temp remains 97.5F and hypotension has resolved with IV fluids (4) CVA (cerebral vascular accident): Qualifiers: CVA mechanism: unspecified Qualified Code(s): I63.9 - Cerebral infarction, unspecified Code(s): I63.9 - Cerebral infarction, unspecified Status: Acute (5) Acute kidney injury: Code(s): N17.9 - Acute kidney failure, unspecified Status: Acute Assessment and Plan: Previous history of BRIAN related to UTI/dehydration. Has reportedly not been eating or drinking since he was discharged at the end of January. Creatinine 2.21/BUN 56/GFR 29 upon admission. CK 57. Urine sodium 68, protein/creatinine ratio 0.07, urine creatinine 116, urea 1079 - monitor I&Os, 900ml out yesterday - BRIAN likely related to acute dehydration/poor p.o. intake related to confusion/delrium. Creatinine improving with fluids: 2.21>0.99 (6) Abnormal urinalysis: Code(s): R82.90 - Unspecified abnormal findings in urine Status: Acute Assessment and Plan: UA showed soft signs of infection. Review of systems unreliable due to alteration. However given presence of lactic acidosis and significance of vital sign abnormalities, will pursue broad-spectrum antibiotics. - UA: 2+ leuk esterase and 11-20 WBC - UC pending - previous micro reviewed, Heena in 2022 otherwise no significant resistances - started on Ceftriaxone on 03/09-03/13 (7) Elevated troponin: Code(s): R79.89 - Other specified abnormal findings of blood chemistry Status: Acute Assessment and Plan: Her mild elevation in troponin that is thus far been flat (0.052 -> 0.041). EKG when compared to previous from 02/20/2025 there are no significant changes beyond the heart rate increasing. Patient restless and unreliable historian, unclear if he has experienced any chest pain or symptoms concerning for ACS. - no evidence of acute NE - telemetry monitoring (8) Hypertension: Qualifiers: Hypertension type: primary hypertension Qualified Code(s): I10 - Essential (primary) hypertension Code(s): I10 - Essential (primary) hypertension Status: Chronic Assessment and Plan: - chronic, currently 118/73. Profoundly hypotensive per EMS (60/23-78/50, HR 120's). Arrived 85/52. Has been 130-150's off medictions - Continue to hold home medications. --Consider restarting lower dose of entresto soon, furosemide prn instead of BID. Has been tolerating continuous IV fluids. Stop fluids when sodium normalized and monitor PO intake (9) Hyperthyroidism: Code(s): E05.90 - Thyrotoxicosis, unspecified without thyrotoxic crisis or storm Status: Chronic Assessment and Plan: - reviewed previous lab work, TSH reported to be 1.25 on 02/21/2025 - continue methimazole --Check TSH (10) Hypernatremia: Code(s): E87.0 - Hyperosmolality and hypernatremia Status: Acute Assessment and Plan: Sodium 160 on admission, improving with LR 160>151. Changed LR @100 to D5 1/2 @50, increased to 75/hr. Recheck labs this afternoon Strict I&O (only 50ml PO charted today) (11) History of CHF (congestive heart failure): Code(s): Z86.79 - Personal history of other diseases of the circulatory system Status: Acute Assessment and Plan: Hx NE several years ago. Patient required CPR. Subsequently significant confusion and has been in termite control technician care. TTE 03/2023 LVEF 30-35% TTE 03/13 unable to determine LVEF, poor windows --Holding lasix and entresto with BRIAN and dehydration Plan Patient was sent to from [place] with AMS and unresponsiveness, with hypotension, patient has not been doing well for sometime prior to coming to ER, recent GI symptoms MRI of brain showed No acute ischemic event, mass or hemorrhage. No abnormal enhancing lesions or masses. Moderately advanced chronic microvascular ischemic appearing changes and probable old bilateral basal ganglia lacunar infarctions on imaging. Patient has been a resident of a jail for several years and has a history of confusion after CPR. His reported significant confusion for more than a year after that which improved. He has multiple reasons for current confusion, including toxic/metabolic 2/2 dehydration/BRIAN and recent hypotension prior to admission. He is going to be more prone to delirum and confusion given history. He has not been drinking well and is likely not tolerating GDMT for heart failure for that reason so stopped diuretics. Would only resume cautiously with recent hypotension. Unclear if he has had some recovery of heart function. Unable to estimate due to poor visualization. TTE was done on 03/13. He should follow up with cardiology outpatient. It is difficult to determine the date of his prior stroke because prior imaging was in 2022. Neurology was consulted during admission. Speech consulted and an MBS was done 03/12, recommended purred food with mildly thick liquids. Will need continued speech evaluations as he improves During admission he was hydrated and treated for hypernatremia. Mental status improving slowly. PT/OT consulted for discharge recommendations. Diet: Pureed with mildly thick liquids (MBS 03/12). Speech following. May be able to reassess and advance diet prior to discharge GI Prophylaxis: N/a DVT Prophylaxis: SCDs IV fluids: 2L -> 100 mL/hr, D51/2 @50<75/hr Lines/Tubes: pIV, romano Code Status: DNR Time Spent With Patient Time with patient: Greater than 35 minutes Subjective Date/time seen: 03/13/25 09:52 Interval history: VSS. BP stable, 130/70 this morning Sodium 155>151>150-150. Increase fluids 50<75/hr. Repeat BMP this afternoon pending. Patient drinking more on his own today, able to hold the cup on his own His reports he has been gradually improving. He is more awake/less lethargic than yesterday. Follows commands but is still confused, talking about [place] having too many bomb Prior to this she had been taking him out of the facility for lunch sometimes Holding furosemide. Has CHF, LVEF 30-35% Echo in 2022. Repeat Echo unclear LVEF, not able to visualize. Hasn't been drinking well and isn't visibly overloaded so stopped furosemide Urine and blood cultures no growth Potassium 3.3, giving another 40meq IV today Review of Systems Review of Systems: ROS unobtainable: Yes unobtainable due to mental status Exam Narrative: General - Awake, and alert. Answers questions but confused. No acute distress Eyes - PERRLA, EOM intact ENT - No thrush, No erythema, mucus membranes moist Neck - No noticeable or palpable swelling Lymph Nodes - No lymphadenopathy Cardiovascular - RRR no m/r/g, no JVD Lungs: Clear to auscultation, No wheezing, no use of accessory muscles, no crackles Skin - Skin warm and dry, no wounds or rashes Abdomen - Normal bowel sounds, abdomen soft and nontender Extremities - No edema, cyanosis or clubbing Musculoskeletal - 4/5 strength, normal range of motion, no swollen or erythematous joints. Neurological ? Alert and oriented x 1-2, January 2025, unable to state location when given multiple choice, CN 2-12 grossly intact. Psych: Calm, cooperative, poor attention, tangential Objective Data Vital Signs Vital Signs: Vital Signs - 24 hr 03/12/25 16:00 03/12/25 20:00 03/12/25 20:52 Temperature 98.4 F 97.6 F Pulse Rate 72 72 Respiratory Rate 16 18 Blood Pressure 134/72 115/80 Pulse Oximetry 100 100 Oxygen Delivery Room Air 03/13/25 06:29 Temperature 97.7 F Pulse Rate 70 Respiratory Rate 18 Blood Pressure 135/63 Pulse Oximetry 97 Oxygen Delivery Intake/Output Intake/Output: Intake & Output 03/10/25 03/11/25 03/12/25 03/13/25 23:59 23:59 23:59 23:59 Intake Total 3030 2046.7 1020 50 Output Total 662 205 9672 500 Balance 2355 1146.7 -580 -450 Meds/Results Medications: Active Medications Generic Name Dose Route Start Last Admin Trade Name Freq PRN Reason Stop Dose Admin Acetaminophen 650 mg 03/10/25 08:49 03/12/25 21:34 Acetaminophen 325 Mg Tablet PO 650 mg Q6H PRN Administration Pain (Scale Score 1-3) Artificial Tears 1 drop 03/10/25 09:00 03/13/25 09:24 Artificial Tears Ophth Soln 15 Ml Bottle EACH EYE Not Given TID MYA Aspirin 81 mg 03/10/25 09:00 03/13/25 09:24 Aspirin 81 Mg Chewable Tablet PO 81 mg DAILY MYA Administration Atorvastatin Calcium 80 mg 03/10/25 21:00 03/12/25 21:32 Atorvastatin 40 Mg Tablet PO 80 mg HS MYA Administration Bisacodyl 5 mg 03/09/25 15:26 Bisacodyl 5 Mg Tablet Ec PO DAILY PRN Constipation Clopidogrel Bisulfate 75 mg 03/10/25 09:00 03/13/25 09:24 Clopidogrel Bisulfate 75 Mg Tablet PO 75 mg QAM MYA Administration Docusate Sodium 100 mg 03/10/25 09:00 03/12/25 16:39 Docusate Sodium 100 Mg Capsule PO Not Given BID MYA Ergocalciferol 1,250 mcg 03/15/25 09:00 Ergocalciferol (Vitamin D2) 1,250 Mcg (50,000 Units) Capsule PO Mo@0900 MYA Ferrous Sulfate 325 mg 03/10/25 09:00 03/13/25 09:24 Ferrous Sulfate 325 Mg Tablet PO 325 mg DAILY MYA Administration Finasteride 5 mg 03/10/25 09:00 03/13/25 09:24 Finasteride 5 Mg Tablet PO 5 mg DAILY MYA Administration Furosemide 40 mg 03/10/25 09:00 03/12/25 11:21 Furosemide 40 Mg Tablet PO Not Given On Hold: 03/12/25 09:08 BID MYA Guaifenesin 600 mg 03/10/25 08:36 Guaifenesin 12 Hr 600 Mg Tabcr PO BID PRN Congestion Ceftriaxone Sodium 1 gm/ 50 mls @ 100 mls/hr 03/09/25 16:00 03/12/25 17:08 Sodium Chloride IVPB 03/13/25 16:29 Infused Q24H [facility] Infusion Dextrose/Sodium Chloride 1,000 mls @ 75 mls/hr 03/12/25 09:10 03/12/25 09:41 Dextrose 5% Sodium Chloride 0.45% IV CONT 50 mls/hr .[id number] MYA Administration Methimazole 5 mg 03/10/25 09:00 03/13/25 09:24 Methimazole 5 Mg Tab PO 5 mg DAILY MYA Administration Morphine Sulfate 2 mg 03/10/25 21:29 03/12/25 09:52 Morphine Sulfate (*Crx) 4 Mg/Ml Inj IV PUSH 2 mg Q4H PRN Administration Pain Rated 7-10 Olanzapine 7.5 mg 03/10/25 21:00 03/12/25 21:31 Olanzapine 2.5 Mg Tablet PO 7.5 mg HS MYA Administration Ondansetron HCl 4 mg 03/09/25 15:26 Ondansetron Inj 4 Mg/2 Ml Vial IV PUSH Q6H PRN Nausea And Vomiting Polyethylene Glycol 17 gm 03/10/25 08:36 Polyethylene Glycol 3350 17 Gm Powd.Pack PO DAILY PRN Constipation Sertraline HCl 75 mg 03/10/25 09:00 03/13/25 09:24 Sertraline Hcl 25 Mg Tablet PO 75 mg DAILY MYA Administration Sucralfate 1 gm 03/10/25 11:30 03/13/25 05:41 Sucralfate 1 Gm Tablet PO 1 gm ACHS MYA Administration Tamsulosin HCl 0.4 mg 03/10/25 21:00 03/12/25 21:32 Tamsulosin Hcl 0.4 Mg Capsule PO 0.4 mg HS MYA Administration Venlafaxine HCl 75 mg 03/10/25 08:55 03/13/25 09:24 Venlafaxine Hcl 75 Mg Tablet PO 75 mg BIDWM MYA Administration Radiology Results: ITS Impressions Chest X-Ray 03/09/25 12:47 IMPRESSION: 1. Mild left basilar discoid atelectasis with mild elevation of the left hemidiaphragm. Head CT 03/09/25 13:36 Impression: 1.No acute intracranial abnormality. Abdomen/Pelvis CT 03/09/25 13:45 IMPRESSION: Directed noncontrast exam demonstrating no focal acute process to explain source of patient's symptoms. See other comments above. Brain MRI 03/10/25 12:50 IMPRESSION: 1. No acute ischemic event, mass or hemorrhage. No abnormal enhancing lesions or masses. 2. Moderately advanced chronic microvascular ischemic appearing changes and probable old bilateral basal ganglia lacunar infarctions. Modified Barium Swallow 03/12/25 15:04 IMPRESSION: No aspiration observed on this limited study. See speech therapist's note for complete evaluation. Labs Labs: Laboratory Results - last 24 hr 03/12/25 03/13/25 14:13 06:11 WBC 9.1 RBC 4.03 L Hgb 13.5 L Hct 40.7 L MCV 101.0 H MCH 33.5 D MCHC 33.2 RDW 16.9 H Plt Count 154 MPV 10.6 H Sodium 150 H 150 H Potassium 3.4 3.3 L Chloride 122 H 122 H Carbon Dioxide 27 24 Anion Gap 1 L 4 BUN 23 H 18 Creatinine 0.99 0.84 Estim Creat Clear Calc 55 64 Estimated GFR > 60 > 60 Glucose 94 97 Calcium 8.8 8.8 Magnesium 2.4 H Quality VTE Prophylaxis VTE prophylaxis: mechanical ordered Hospitalist MIPS Advance Care Plan I have confirmed that the patient's Advanced Care Plan is present, code status is documented, or surrogate decision maker is listed in patient medical record.: Yes Medication Reconciliation I have utilized all available resources to obtain, update and review the patients current medications (includes all prescriptions, OTC, herbals, cannabis, and nutritional supplements).: Yes
[2025-03-13] MEDS: PERFLUTREN LIPID MICROSPHERES 1.5 ML VIAL DILUTED TO 10 ML TOTAL VOLUME IV PUSH (11:00)
[2025-03-13] MEDS: DEXTROSE 5%/0.45% SOD CHL 1,000 ML 75 ML IV CONT (11:25)
[2025-03-13] MEDS: POTASSIUM CHLORIDE INJ 40 MEQ in SODIUM CHLORIDE 0.9% IV 500 ML 130 MEQ IVPB (11:26)
--- NOTE | 2025-03-13 11:39 | IVDEFINITY ---
Prior to administration of IV Definity the patient was educated on the risks and benefits of the imaging enhancing agent including potential adverse side effects. The patient verbalized understanding. Allergies were verified. No exclusion criteria were identified and at least one of the following inclusion criteria were met: 1) physician request, 2) patient technically difficult to image (per the [place] [employer] guidelines of two or more segments not discernable within the apical view), or 3) questionable left ventricular function. ?
[2025-03-13 16:00] VITALS: BP 113/49; PULSE 89; RESP 16; TEMP 36.3; O2SAT 99
[2025-03-13] MEDS: cefTRIAXone 1 GM in SODIUM CHLORIDE 0.9% IV 50 ML 100 ML IVPB (16:38)
[2025-03-13 18:51] LABS: Anion Gap 4 mmol/L (4-12); Blood Urea Nitrogen 15 mg/dL (9-20); Calcium 8.8 mg/dL (8.4-10.2); Carbon Dioxide 24 mmol/L (22-30); Chloride 123 mmol/L (98-107); Estimated CRCL calculation 61 ml/min; Estimated Glomerular Filt Rate > 60; Glucose 102 mg/dL (65-110); Potassium 3.6 mmol/L (3.4-5.0); Sodium 151 mmol/L (137-145)
[2025-03-13] MEDS: ATORVASTATIN 40 MG TABLET 80 MG PO (20:26)
[2025-03-13 21:42] VITALS: BP 137/84; PULSE 80; RESP 18; TEMP 36.5; O2SAT 98
[2025-03-14] MEDS: ACETAMINOPHEN 325 MG TABLET 650 MG PO (05:54)
[2025-03-14] MEDS: DEXTROSE 5%/0.45% SOD CHL 1,000 ML 75 ML IV CONT ×2 (05:54→20:28)
[2025-03-14] MEDS: SUCRALFATE 1 GM TABLET PO ×4 (05:54→20:29)
[2025-03-14 06:48] LABS: Anion Gap 1 mmol/L (4-12); Blood Urea Nitrogen 13 mg/dL (9-20); Calcium 8.4 mg/dL (8.4-10.2); Carbon Dioxide 24 mmol/L (22-30); Chloride 121 mmol/L (98-107); Estimated CRCL calculation 67 ml/min; Estimated Glomerular Filt Rate > 60; Glucose 117 mg/dL (65-110); Magnesium 2.3 mg/dL (1.6-2.3); Potassium 3.4 mmol/L (3.4-5.0); Sodium 146 mmol/L (137-145)
[2025-03-14 06:49] LABS: Hematocrit 38.8 % (42.0-52.0); Hemoglobin 12.4 g/dL (14.0-18.0); Immature Platelet Fraction Pct 3.5 % (0.9-11.2); Mean Corpuscular HGB Conc 32.0 g/dl (32-36); Mean Corpuscular Hemoglobin 30.9 pg (26-34); Mean Corpuscular Volume 96.8 fl (80-100); Platelet Count Result 133 k/mm3 (150-375); Red Blood Count 4.01 M/mm3 (4.6-6.20); White Blood Count 8.6 K/mm3 (4.5-10.0)
[2025-03-14 07:00] VITALS: BP 141/78; PULSE 90; RESP 20; TEMP 36.4; O2SAT 100
[2025-03-14 07:11] LABS: Thyroid Stimulating Hormone Reflex 0.882 uIU/mL (0.465-4.68)
[2025-03-14 07:42] LABS: Vitamin B12 457.0 pg/mL (239-931)
[2025-03-14] MEDS: VENLAFAXINE HCL 75 MG TABLET PO ×2 (08:35→16:45)
[2025-03-14] MEDS: FERROUS SULFATE 325 MG TABLET PO (08:35)
[2025-03-14] MEDS: SERTRALINE HCL 25 MG TABLET 75 MG PO (08:36)
[2025-03-14] MEDS: FINASTERIDE 5 MG TABLET PO (08:36)
[2025-03-14] MEDS: ASPIRIN 81 MG CHEWABLE TABLET PO (08:37)
[2025-03-14] MEDS: CLOPIDOGREL BISULFATE 75 MG TABLET PO (08:37)
[2025-03-14] MEDS: ARTIFICIAL TEARS OPHTH SOLN 15 ML BOTTLE 1 DROP EACH EYE ×3 (08:54→16:45)
--- NOTE | 2025-03-14 10:53 | P.PNIM_ITS ---
Assessment and Plan Assessment and Plan (1) Dehydration: Code(s): E86.0 - Dehydration Status: Acute Assessment and Plan: Patient has had failure to thrive since he was discharged at the end of January from this facility. Per he has not been feeding himself or eating/drinking. Profoundly hypotensive upon initial assessment that has resolved with IV fluids. Patient still appears dry on exam. Maintenance fluids continued. BRIAN related to dehydration, see above. Stopped diuretics. No longer hypotensive --Calorie count, director of outreach consult. Follow PO intake -nutritional supplements (2) Delirium: Code(s): R41.0 - Disorientation, unspecified Status: Acute Assessment and Plan: Hx CVA Patient has had failure to thrive since the end of January, Was admitted with dehydration and diarrhea. Unclear Virtually not helping to feed himself, walk, or eating/drinking. Unresponsive and hypotensive. Has that significantly improved with IV fluids. However CT of the head showed remote bilateral basal ganglia in lacunar infarcts. No previous history of CVA. Reviewed previous head CT from March of 2023, no CVA noted at that time. Remote CVAs could be reason for general decline. Discussed goals of care with the patient's , care coordination consulted for discussions of hospice. Patient's mental status improving with fluids. Deferring further discussions until sodium corrected. 03/[address] showed 1.No acute intracranial abnormality. Noted remote basal ganglia lacunar infarcts. Prior CT 03/2023 no note of basal ganglia lacunar infarcts 03/10 Brain MRI 1. No acute ischemic event, mass or hemorrhage. No abnormal enhancing lesions or masses. 2. Moderately advanced chronic microvascular ischemic appearing changes and probable old bilateral basal ganglia lacunar infarctions. Patient's reports he was ambulating with a walker prior to admission 02/20- 02/25. Hasn't walked since the last admission. Has been in detention care for about 3 years. Had an MA in 2021 and confusion after that hospitalization that eventually improved. Acute confusion recently is new in the setting of dehydration/BRIAN and recent GI symptoms. Also profoundly hypotensive prior to admission --Neurology consulted, follow recommendations. - PT/OT/ST - continue daily aspirin and atorvastatin, added Plavix --B12, TSH (3) Sepsis: Code(s): A41.9 - Sepsis, unspecified organism Status: Resolved Assessment and Plan: Met sirs criteria due to heart rate, blood pressure, respiratory rate. UA showed soft signs of infection, culture pending. Lactic initially 2.6 with repeat at 2.4 with IV fluids. - blood cultures obtained on 03/09, follow - lactic elevated, check procalcitonin - started on ceftriaxone on 03/09 for suspected UTI - monitor hemodynamic stability, does have cool extremities on exam however temp remains 97.5F and hypotension has resolved with IV fluids (4) CVA (cerebral vascular accident): Qualifiers: CVA mechanism: unspecified Qualified Code(s): I63.9 - Cerebral infarction, unspecified Code(s): I63.9 - Cerebral infarction, unspecified Status: Acute Assessment and Plan: Patient has had failure to thrive since the end of January. Virtually not helping to feed himself, walk, or eating/drinking. Unresponsive today that significantly improved with IV fluids. However CT of the head showed remote bilateral basal ganglia in lacunar infarcts. No previous history of CVA. Reviewed previous head CT from March of 2023, no CVA noted at that time. Remote CVAs could be reason for general decline. Discussed goals of care with the patient's , care coordination consulted for discussions of hospice. Not willing to pursue at this evening and would like to see if he improves at all with fluids, however is open to discussing. mri completed 03/10: IMPRESSION: 1. No acute ischemic event, mass or hemorrhage. No abnormal enhancing lesions or masses. 2. Moderately advanced chronic microvascular ischemic appearing changes and probable old bilateral basal ganglia lacunar infarctions. -neurology following -asa, statin and plavix-continue (5) Acute kidney injury: Code(s): N17.9 - Acute kidney failure, unspecified Status: Acute Assessment and Plan: Previous history of BRIAN related to UTI/dehydration. Has reportedly not been eating or drinking since he was discharged at the end of January. Creatinine 2.21/BUN 56/GFR 29 upon admission. CK 57. Urine sodium 68, protein/creatinine ratio 0.07, urine creatinine 116, urea 1079 - monitor I&Os, 900ml out yesterday - BRIAN likely related to acute dehydration/poor p.o. intake related to confusion/delrium. Creatinine improving with fluids: 2.21>0.99 (6) Abnormal urinalysis: Code(s): R82.90 - Unspecified abnormal findings in urine Status: Acute Assessment and Plan: UA showed soft signs of infection. Review of systems unreliable due to alteration. However given presence of lactic acidosis and significance of vital sign abnormalities, will pursue broad-spectrum antibiotics. - UA: 2+ leuk esterase and 11-20 WBC - UC pending - previous micro reviewed, Heena in 2022 otherwise no significant resistances - started on Ceftriaxone on 03/09-03/13 (7) Elevated troponin: Code(s): R79.89 - Other specified abnormal findings of blood chemistry Status: Acute Assessment and Plan: Her mild elevation in troponin that is thus far been flat (0.052 -> 0.041). EKG when compared to previous from 02/20/2025 there are no significant changes beyond the heart rate increasing. Patient restless and unreliable historian, unclear if he has experienced any chest pain or symptoms concerning for ACS. - no evidence of acute MA - telemetry monitoring -no chest pain, stable (8) Hypertension: Qualifiers: Hypertension type: primary hypertension Qualified Code(s): I10 - Essential (primary) hypertension Code(s): I10 - Essential (primary) hypertension Status: Chronic Assessment and Plan: - chronic, currently 118/73. Profoundly hypotensive per EMS (60/23-78/50, HR 120's). Arrived 85/52. Has been 130-150's off medictions - Continue to hold home medications. --Consider restarting lower dose of entresto soon, furosemide prn instead of BID. Has been tolerating continuous IV fluids. Stop fluids when sodium normalized and monitor PO intake (9) Hyperthyroidism: Code(s): E05.90 - Thyrotoxicosis, unspecified without thyrotoxic crisis or storm Status: Chronic Assessment and Plan: - reviewed previous lab work, TSH reported to be 1.25 on 02/21/2025 - continue methimazole --Check TSH (10) Hypernatremia: Code(s): E87.0 - Hyperosmolality and hypernatremia Status: Acute Assessment and Plan: Sodium 160 on admission, improving with LR 160>151. Changed LR @100 to D5 1/2 @50, increased to 75/hr. Recheck labs this afternoon Strict I&O (only 50ml PO charted today) (11) History of CHF (congestive heart failure): Code(s): Z86.79 - Personal history of other diseases of the circulatory system Status: Acute Assessment and Plan: Hx MA several years ago. Patient required CPR. Subsequently significant confusion and has been in detention care. TTE 03/2023 LVEF 30-35% TTE 03/13 unable to determine LVEF, poor windows --Holding lasix and entresto with BRIAN and dehydration Plan Patient was sent to from [place] with AMS and unresponsiveness, with hypotension, patient has not been doing well for sometime prior to coming to ER, recent GI symptoms MRI of brain showed No acute ischemic event, mass or hemorrhage. No abnormal enhancing lesions or masses. Moderately advanced chronic microvascular ischemic appearing changes and probable old bilateral basal ganglia lacunar infarctions on imaging. Patient has been a resident of a custodial for several years and has a history of confusion after CPR. His reported significant confusion for more than a year after that which improved. He has multiple reasons for current confusion, including toxic/metabolic 2/2 dehydration/BRIAN and recent hypotension prior to admission. He is going to be more prone to delirum and confusion given history. He has not been drinking well and is likely not tolerating GDMT for heart failure for that reason so stopped diuretics. Would only resume cautiously with recent hypotension. Unclear if he has had some recovery of heart function. Unable to estimate due to poor visualization. TTE was done on 03/13. He should follow up with cardiology outpatient. It is difficult to determine the date of his prior stroke because prior imaging was in 2022. Neurology was consulted during admission. Speech consulted and an MBS was done 03/12, recommended purred food with mildly thick liquids. Will need continued speech evaluations as he improves During admission he was hydrated and treated for hypernatremia. Mental status improving slowly. PT/OT consulted for discharge recommendations. Diet: Pureed with mildly thick liquids (MBS 03/12). Speech following. May be able to reassess and advance diet prior to discharge GI Prophylaxis: N/a DVT Prophylaxis: SCDs IV fluids: 2L -> 100 mL/hr, D51/2 @50<75/hr Lines/Tubes: pIV, romano Code Status: DNR Medical Record Review I have reviewed the following patient records and this information was taken into consideration when formulating the assessment and plan.: previous labs, previous ER visits, previous hospitalizations and previous clinic visits Time Spent With Patient Time with patient: Greater than 35 minutes Subjective Date/time seen: 03/14/25 10:53 Interval history: VSS. BP stable, 130/70 this morning Sodium 155>151>150-150. Increase fluids 50<75/hr. Repeat BMP this afternoon pending. Patient drinking more on his own today, able to hold the cup on his own His reports he has been gradually improving. He is more awake/less lethargic than yesterday. Follows commands but is still confused, talking about [place] having too many bomb Prior to this she had been taking him out of the facility for lunch sometimes Holding furosemide. Has CHF, LVEF 30-35% Echo in 2022. Repeat Echo unclear LVEF, not able to visualize. Hasn't been drinking well and isn't visibly overloaded so stopped furosemide Urine and blood cultures no growth pt/ot, nutritional supplements as appetite is not great. Pt denies pain, oriented to self, apprears appropriate, strength equal but weak to BUE, BLE Review of Systems Review of Systems: pt is alert but oriented to self Exam Narrative: General - Awake, and alert. Answers questions but confused. No acute distress Eyes - PERRLA, EOM intact ENT - No thrush, No erythema, mucus membranes moist Neck - No noticeable or palpable swelling Lymph Nodes - No lymphadenopathy Cardiovascular - RRR no m/r/g, no JVD Lungs: Clear to auscultation, No wheezing, no use of accessory muscles, no crackles Skin - Skin warm and dry, no wounds or rashes Abdomen - Normal bowel sounds, abdomen soft and nontender Extremities - No edema, cyanosis or clubbing Musculoskeletal - 4/5 strength, normal range of motion, no swollen or erythematous joints. Neurological ? Alert and oriented x 1-2, January 2025, unable to state location when given multiple choice, CN 2-12 grossly intact. Psych: Calm, cooperative, poor attention, tangential Const: Other: , male, elderly, ill-appearing, restless HENMT: Face/Nose/Sinus: Normal nares present Mouth: Yes dry mucous membranes Eyes: General: appearance normal, both eyes and all related structures Sclera: sclerae normal Pupils: Equal, round and reactive pupils present EOM: EOMs intact bilaterally Resp: Effort & Inspection: normal respiratory effort Auscultation: clear to auscultation bilaterally Cardio: Rate: regular rate Rhythm: regular rhythm Other: S1-S2 present without murmur, rub, ectopy GI: Other: Abdomen soft, nondistended, nontender. Normoactive bowel sounds in all quadrants. Skin: General skin exam: normal color and no rashes or lesions noted Other: Small area of erythema to the coccyx region. Abrasion overlying. Neuro: Cranial nerves: Yes Equal, round and reactive pupils present Other: Patient is alert to self only. Moving all extremities. Difficulty following commands, restless, moaning. Difficult exam. No gaze deviation appreciated. Extrem: Other: Cool extremities. Psych: Other: Poor insight and judgment, restless. Objective Data Vital Signs Vital Signs: Vital Signs - 24 hr 03/13/25 16:00 03/13/25 21:42 03/14/25 07:00 Temperature 97.4 F L 97.7 F 97.6 F Pulse Rate 89 80 90 Respiratory Rate 16 18 20 Blood Pressure 113/49 L 137/84 141/78 H Pulse Oximetry 99 98 100 Intake/Output Intake/Output: Intake & Output 03/11/25 03/12/25 03/13/25 03/14/25 23:59 23:59 23:59 23:59 Intake Total 2046.7 1020 1200 1000 Output Total 900 1600 500 600 Balance 1146.7 -580 700 400 Meds/Results Medications: Active Medications Generic Name Dose Route Start Last Admin Trade Name Freq PRN Reason Stop Dose Admin Acetaminophen 650 mg 03/10/25 08:49 03/14/25 05:54 Acetaminophen 325 Mg Tablet PO 650 mg Q6H PRN Administration Pain (Scale Score 1-3) Artificial Tears 1 drop 03/10/25 09:00 03/14/25 08:54 Artificial Tears Ophth Soln 15 Ml Bottle EACH EYE 1 drop TID MYA Administration Aspirin 81 mg 03/10/25 09:00 03/14/25 08:37 Aspirin 81 Mg Chewable Tablet PO 81 mg DAILY MYA Administration Atorvastatin Calcium 80 mg 03/10/25 21:00 03/13/25 20:26 Atorvastatin 40 Mg Tablet PO 80 mg HS MYA Administration Bisacodyl 5 mg 03/09/25 15:26 Bisacodyl 5 Mg Tablet Ec PO DAILY PRN Constipation Clopidogrel Bisulfate 75 mg 03/10/25 09:00 03/14/25 08:37 Clopidogrel Bisulfate 75 Mg Tablet PO 75 mg QAM MYA Administration Docusate Sodium 100 mg 03/10/25 09:00 03/14/25 08:39 Docusate Sodium 100 Mg Capsule PO Not Given BID MYA Ergocalciferol 1,250 mcg 03/15/25 09:00 Ergocalciferol (Vitamin D2) 1,250 Mcg (50,000 Units) Capsule PO Mo@0900 MYA Ferrous Sulfate 325 mg 03/10/25 09:00 03/14/25 08:35 Ferrous Sulfate 325 Mg Tablet PO 325 mg DAILY MYA Administration Finasteride 5 mg 03/10/25 09:00 03/14/25 08:36 Finasteride 5 Mg Tablet PO 5 mg DAILY MYA Administration Furosemide 40 mg 03/10/25 09:00 03/12/25 11:21 Furosemide 40 Mg Tablet PO Not Given On Hold: 03/12/25 09:08 BID MYA Guaifenesin 600 mg 03/10/25 08:36 Guaifenesin 12 Hr 600 Mg Tabcr PO BID PRN Congestion Dextrose/Sodium Chloride 1,000 mls @ 75 mls/hr 03/12/25 09:10 03/14/25 05:54 Dextrose 5% Sodium Chloride 0.45% IV CONT 75 mls/hr .[id number] MYA Administration Methimazole 5 mg 03/10/25 09:00 03/14/25 08:35 Methimazole 5 Mg Tab PO 5 mg DAILY MYA Administration Morphine Sulfate 2 mg 03/10/25 21:29 03/12/25 09:52 Morphine Sulfate (*Crx) 4 Mg/Ml Inj IV PUSH 2 mg Q4H PRN Administration Pain Rated 7-10 Olanzapine 7.5 mg 03/10/25 21:00 03/13/25 20:26 Olanzapine 2.5 Mg Tablet PO 7.5 mg HS MYA Administration Ondansetron HCl 4 mg 03/09/25 15:26 Ondansetron Inj 4 Mg/2 Ml Vial IV PUSH Q6H PRN Nausea And Vomiting Polyethylene Glycol 17 gm 03/10/25 08:36 03/13/25 20:26 Polyethylene Glycol 3350 17 Gm Powd.Pack PO 17 gm DAILY PRN Administration Constipation Sertraline HCl 75 mg 03/10/25 09:00 03/14/25 08:36 Sertraline Hcl 25 Mg Tablet PO 75 mg DAILY MYA Administration Sucralfate 1 gm 03/10/25 11:30 03/14/25 05:54 Sucralfate 1 Gm Tablet PO 1 gm ACHS MYA Administration Tamsulosin HCl 0.4 mg 03/10/25 21:00 03/13/25 23:59 Tamsulosin Hcl 0.4 Mg Capsule PO Not Given On Hold: 03/14/25 02:51 HS MYA Comment: CANNOT BE CRUSHED W/ NO FORMULARY SUB IN LIQUID FORM. HOLD WHILE PT IS UNABLE TO SWALLOW Venlafaxine HCl 75 mg 03/10/25 08:55 03/14/25 08:35 Venlafaxine Hcl 75 Mg Tablet PO 75 mg BIDWM MYA Administration Radiology Results: ITS Impressions Chest X-Ray 03/09/25 12:47 IMPRESSION: 1. Mild left basilar discoid atelectasis with mild elevation of the left hemidiaphragm. Head CT 03/09/25 13:36 Impression: 1.No acute intracranial abnormality. Abdomen/Pelvis CT 03/09/25 13:45 IMPRESSION: Directed noncontrast exam demonstrating no focal acute process to explain source of patient's symptoms. See other comments above. Brain MRI 03/10/25 12:50 IMPRESSION: 1. No acute ischemic event, mass or hemorrhage. No abnormal enhancing lesions or masses. 2. Moderately advanced chronic microvascular ischemic appearing changes and probable old bilateral basal ganglia lacunar infarctions. Modified Barium Swallow 03/12/25 15:04 IMPRESSION: No aspiration observed on this limited study. See speech therapist's note for complete evaluation. Labs Labs: Laboratory Results - last 24 hr 03/13/25 03/14/25 18:06 06:11 WBC 8.6 RBC 4.01 L Hgb 12.4 L Hct 38.8 L MCV 96.8 MCH 30.9 D MCHC 32.0 RDW 15.2 H Plt Count 133 L MPV 10.7 H % Immature Plt Fraction 3.5 Sodium 151 H 146 H Potassium 3.6 3.4 Chloride 123 H 121 H Carbon Dioxide 24 24 Anion Gap 4 1 L BUN 15 13 Creatinine 0.89 0.81 Estim Creat Clear Calc 61 67 Estimated GFR > 60 > 60 Glucose 102 117 H Calcium 8.8 8.4 Magnesium 2.3 Vitamin B12 457.0 TSH (Reflex) 0.882 Quality VTE Prophylaxis VTE prophylaxis: mechanical ordered
[2025-03-14] MEDS: POTASSIUM CHLORIDE 20 MEQ PACKET (FOR LIQUID) PO (12:32)
[2025-03-14 14:00] VITALS: BP 122/72; PULSE 81; RESP 14; TEMP 36.3; O2SAT 96
[2025-03-14] MEDS: ATORVASTATIN 40 MG TABLET 80 MG PO (20:29)
[2025-03-14 21:37] VITALS: BP 107/58; PULSE 95; RESP 18; TEMP 36.4; O2SAT 99
[2025-03-15] MEDS: FUROSEMIDE INJ 40 MG/4 ML VIAL IV PUSH (05:13)
[2025-03-15] MEDS: SUCRALFATE 1 GM TABLET PO ×4 (05:14→21:55)
[2025-03-15 06:00] VITALS: BP 117/62; PULSE 98; RESP 16; TEMP 36.4; O2SAT 100
[2025-03-15 06:05] LABS: Hematocrit 41.1 % (42.0-52.0); Hemoglobin 13.6 g/dL (14.0-18.0); Immature Platelet Fraction Pct 4.5 % (0.9-11.2); Mean Corpuscular HGB Conc 33.1 g/dl (32-36); Mean Corpuscular Hemoglobin 33.3 pg (26-34); Mean Corpuscular Volume 100.7 fl (80-100); Platelet Count Result 132 k/mm3 (150-375); Red Blood Count 4.08 M/mm3 (4.6-6.20); White Blood Count 8.4 K/mm3 (4.5-10.0)
[2025-03-15 06:33] LABS: Anion Gap 4 mmol/L (4-12); Blood Urea Nitrogen 9 mg/dL (9-20); Calcium 8.5 mg/dL (8.4-10.2); Carbon Dioxide 22 mmol/L (22-30); Chloride 118 mmol/L (98-107); Estimated CRCL calculation 70 ml/min; Estimated Glomerular Filt Rate > 60; Glucose 107 mg/dL (65-110); Magnesium 2.4 mg/dL (1.6-2.3); Potassium 3.4 mmol/L (3.4-5.0); Sodium 144 mmol/L (137-145)
[2025-03-15] MEDS: FINASTERIDE 5 MG TABLET PO (09:08)
[2025-03-15] MEDS: ASPIRIN 81 MG CHEWABLE TABLET PO (09:08)
[2025-03-15] MEDS: CLOPIDOGREL BISULFATE 75 MG TABLET PO (09:08)
[2025-03-15] MEDS: POTASSIUM CHLORIDE 20 MEQ PACKET (FOR LIQUID) PO (09:09)
[2025-03-15] MEDS: SERTRALINE HCL 25 MG TABLET 75 MG PO (09:09)
[2025-03-15] MEDS: VENLAFAXINE HCL 75 MG TABLET PO ×2 (09:09→17:39)
[2025-03-15] MEDS: ARTIFICIAL TEARS OPHTH SOLN 15 ML BOTTLE 1 DROP EACH EYE ×3 (09:12→17:40)
[2025-03-15] MEDS: FERROUS SULFATE 325 MG TABLET PO (09:13)
[2025-03-15] MEDS: DEXTROSE 5%/0.45% SOD CHL 1,000 ML 75 ML IV CONT (09:20)
[2025-03-15 11:41] VITALS: BMI 29.8
--- NOTE | 2025-03-15 12:55 | PCOTNOTE ---
Patient having increased confusion, refusing to participate in any activity this session. Patient is resistive to attempted movement.
[2025-03-15 14:00] VITALS: BP 95/56; PULSE 90; RESP 18; TEMP 36.3; O2SAT 100
[2025-03-15 14:37] VITALS: BP 100/60
--- NOTE | 2025-03-15 15:05 | P.DS_ITS ---
DS: Discharge Diagnosis Discharge Diagnosis (1) Dehydration: Code(s): E86.0 - Dehydration Status: Acute Assessment and Plan: Patient has had failure to thrive since he was discharged at the end of January from this facility. Per he has not been feeding himself or eating/drinking. Profoundly hypotensive upon initial assessment that has resolved with IV fluids. Patient still appears dry on exam. Maintenance fluids continued. BRIAN related to dehydration, see above. Stopped diuretics. No longer hypotensive --Calorie count, web developer consult. Follow PO intake -nutritional supplements (2) Delirium: Code(s): R41.0 - Disorientation, unspecified Status: Acute Assessment and Plan: Hx CVA Patient has had failure to thrive since the end of January, Was admitted with dehydration and diarrhea. Unclear Virtually not helping to feed himself, walk, or eating/drinking. Unresponsive and hypotensive. Has that significantly improved with IV fluids. However CT of the head showed remote bilateral basal ganglia in lacunar infarcts. No previous history of CVA. Reviewed previous head CT from March of 2023, no CVA noted at that time. Remote CVAs could be reason for general decline. Discussed goals of care with the patient's , care coordination consulted for discussions of hospice. Patient's mental status improving with fluids. Deferring further discussions until sodium corrected. 03/[address] showed 1.No acute intracranial abnormality. Noted remote basal ganglia lacunar infarcts. Prior CT 03/2023 no note of basal ganglia lacunar infarcts 03/10 Brain MRI 1. No acute ischemic event, mass or hemorrhage. No abnormal enhancing lesions or masses. 2. Moderately advanced chronic microvascular ischemic appearing changes and probable old bilateral basal ganglia lacunar inf arctions. Patient's reports he was ambulating with a walker prior to admission 02/20- 02/25. Hasn't walked since the last admission. Has been in custodial care for about 3 years. Had an OK in 2021 and confusion after that hospitalization that eventually improved. Acute confusion recently is new in the setting of dehydration/BRIAN and recent GI symptoms. Also profoundly hypotensive prior to admission --Neurology consulted, follow recommendations. - PT/OT/ST - continue daily aspirin and atorvastatin, added Plavix --B12, TSH (3) Sepsis: Code(s): A41.9 - Sepsis, unspecified organism Status: Resolved Assessment and Plan: Met sirs criteria due to heart rate, blood pressure, respiratory rate. UA showed soft signs of infection, culture pending. Lactic initially 2.6 with repeat at 2.4 with IV fluids. - blood cultures obtained on 03/09, follow - lactic elevated, check procalcitonin - started on ceftriaxone on 03/09 for suspected UTI - monitor hemodynamic stability, does have cool extremities on exam however temp remains 97.5F and hypotension has resolved with IV fluids (4) CVA (cerebral vascular accident): Qualifiers: CVA mechanism: unspecified Qualified Code(s): I63.9 - Cerebral infarction, unspecified Code(s): I63.9 - Cerebral infarction, unspecified Status: Acute Assessment and Plan: Patient has had failure to thrive since the end of January. Virtually not helping to feed himself, walk, or eating/drinking. Unresponsive today that significantly improved with IV fluids. However CT of the head showed remote bilateral basal ganglia in lacunar infarcts. No previous history of CVA. Reviewed previous head CT from March of 2023, no CVA noted at that time. Remote CVAs could be reason for general decline. Discussed goals of care with the patient's , care coordination consulted for discussions of hospice. Not willing to pursue at this evening and would like to see if he improves at all with fluids, however is open to discussing. mri completed 03/10: IMPRESSION: 1. No acute ischemic event, mass or hemorrhage. No abnormal enhancing lesions or masses. 2. Moderately advanced chronic microvascular ischemic appearing changes and probable old bilateral basal ganglia lacunar infarctions. -neurology following -asa, statin and plavix-continue (5) Acute kidney injury: Code(s): N17.9 - Acute kidney failure, unspecified Status: Acute Assessment and Plan: Previous history of BRIAN related to UTI/dehydration. Has reportedly not been eating or drinking since he was discharged at the end of January. Creatinine 2.21/BUN 56/GFR 29 upon admission. CK 57. Urine sodium 68, protein/creatinine ratio 0.07, urine creatinine 116, urea 1079 - monitor I&Os, 900ml out yesterday - BRIAN likely related to acute dehydration/poor p.o. intake related to confusion/delrium. Creatinine improving with fluids: 2.21>0.99 (6) Abnormal urinalysis: Code(s): R82.90 - Unspecified abnormal findings in urine Status: Acute Assessment and Plan: UA showed soft signs of infection. Review of systems unreliable due to alteration. However given presence of lactic acidosis and significance of vital sign abnormalities, will pursue broad-spectrum antibiotics. - UA: 2+ leuk esterase and 11-20 WBC - UC pending - previous micro reviewed, Heena in 2022 otherwise no significant resistances - started on Ceftriaxone on 03/09-03/13 (7) Elevated troponin: Code(s): R79.89 - Other specified abnormal findings of blood chemistry Status: Acute Assessment and Plan: Her mild elevation in troponin that is thus far been flat (0.052 -> 0.041). EKG when compared to previous from 02/20/2025 there are no significant changes beyond the heart rate increasing. Patient restless and unreliable historian, unclear if he has experienced any chest pain or symptoms concerning for ACS. - no evidence of acute OK - telemetry monitoring -no chest pain, stable (8) Hypertension: Qualifiers: Hypertension type: primary hypertension Qualified Code(s): I10 - Essential (primary) hypertension Code(s): I10 - Essential (primary) hypertension Status: Chronic Assessment and Plan: - chronic, currently 118/73. Profoundly hypotensive per EMS (60/23-78/50, HR 120's). Arrived 85/52. Has been 130-150's off medictions - Continue to hold home medications. --Consider restarting lower dose of entresto soon, furosemide prn instead of BID. Has been tolerating continuous IV fluids. Stop fluids when sodium normalized and monitor PO intake (9) Hyperthyroidism: Code(s): E05.90 - Thyrotoxicosis, unspecified without thyrotoxic crisis or storm Status: Chronic Assessment and Plan: - reviewed previous lab work, TSH reported to be 1.25 on 02/21/2025 - continue methimazole --Check TSH (10) Hypernatremia: Code(s): E87.0 - Hyperosmolality and hypernatremia Status: Acute Assessment and Plan: Sodium 160 on admission, improving with LR 160>151. Changed LR @100 to D5 1/2 @50, increased to 75/hr. Recheck labs this afternoon Strict I&O (only 50ml PO charted today) (11) History of CHF (congestive heart failure): Code(s): Z86.79 - Personal history of other diseases of the circulatory system Status: Acute Assessment and Plan: Hx OK several years ago. Patient required CPR. 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 TTE 03/2023 LVEF 30-35% TTE 03/13 unable to determine LVEF, poor windows --Holding lasix and entresto with BRIAN and dehydration Plan Patient was sent to from [place] with AMS and unresponsiveness, with hypotension, patient has not been doing well for sometime prior to coming to ER, recent GI sy mptoms MRI of brain showed No acute ischemic event, mass or hemorrhage. No abnormal enhancing lesions or masses. Moderately advanced chronic microvascular ischemic appearing changes and probable old bilateral basal ganglia lacunar infarctions on imaging. Patient has been a resident of a senior living for several years and has a history of confusion after CPR. His reported significant confusion for more than a year after that which improved. He has multiple reasons for current confusion, including toxic/metabolic 2/2 dehydration/BRIAN and recent hypotension prior to admission. He is going to be more prone to delirum and confusion given history. He has not been drinking well and is likely not tolerating GDMT for heart failure for that reason so stopped diuretics. Would only resume cautiously with recent hypotension. Unclear if he has had some recovery of heart function. Unable to estimate due to poor visualization. TTE was done on 03/13. He should follow up with cardiology outpatient. It is difficult to determine the date of his prior stroke because prior imaging was in 2022. Neurology was consulted during admission. Speech consulted and an MBS was done 03/12, recommended purred food with mildly thick liquids. Will need continued speech evaluations as he improves During admission he was hydrated and treated for hypernatremia. Mental status improving slowly. PT/OT consulted for discharge recommendations. Diet: Pureed with mildly thick liquids (MBS 03/12). Speech following. May be able to reassess and advance diet prior to discharge GI Prophylaxis: N/a DVT Prophylaxis: SCDs IV fluids: 2L -> 100 mL/hr, D51/2 @50<75/hr Lines/Tubes: pIV, romano Code Status: DNR DS: Summary Time Spent with Patient Time attestation: Total time spent providing and/or coordinating discharge services: DS: Data Data Completed and Pending Labs on day of discharge: Labs from last 24 hours 03/15/25 05:24 WBC 8.4 RBC 4.08 L Hgb 13.6 L Hct 41.1 L MCV 100.7 H MCH 33.3 D MCHC 33.1 RDW 17.4 H Plt Count 132 L MPV 11.1 H % Immature Plt Fraction 4.5 Sodium 144 Potassium 3.4 Chloride 118 H Carbon Dioxide 22 Anion Gap 4 BUN 9 Creatinine 0.77 Estim Creat Clear Calc 70 Estimated GFR > 60 Glucose 107 Calcium 8.5 Magnesium 2.4 H Preliminary micro results at discharge 03/09/25 16:59 Blood Culture - Preliminary Blood 03/09/25 12:36 Blood Culture - Preliminary Blood Discharge Plan Discharge Consulting providers: Lito Yun; Jenna Mojica Patient Language: Russian Discharge Medications: No Action ferrous sulfate 325 mg (65 mg iron) Tablet,Delayed Release (Dr/Ec) 325 mg PO DAILY Qty: 90 1RF sacubitril-valsartan [Entresto] 24-26 mg Tablet 1 tablet PO Q12HR Qty: 60 5RF potassium chloride 20 mEq tablet,ER particles/crystals 20 meq PO DAILY finasteride 5 mg tablet 5 mg PO DAILY tamsulosin 0.4 mg Capsule 0.4 mg PO HS atorvastatin 80 mg Tablet 80 mg PO HS aspirin 81 mg Tablet,Chewable 81 mg PO DAILY acetaminophen 325 mg Tablet,Chewable 650 mg PO Q6H PRN (Reason: Pain (Scale Score 1-3)) polyethylene glycol 3350 17 gram/dose Powder 17 g PO DAILY PRN (Reason: Constipation) venlafaxine 75 mg Tablet 75 mg PO BID Rx Instructions: before breakfast and dinner Refresh Classic (PF) 1.4-0.6 % Dropperette 1 drp EACH EYE TID sucralfate 1 gram tablet 1 g PO ACHS olanzapine 2.5 mg tablet 7.5 mg PO HS methimazole 5 mg tablet 5 mg PO DAILY Qty: 30 0RF sertraline 50 mg tablet 75 mg PO DAILY guaifenesin [Mucinex] 600 mg tablet extended release 12hr 600 mg PO BID PRN (Reason: congestion) cholecalciferol (vitamin D3) [Decara] 1,250 mcg (50,000 unit) capsule 1,250 mcg PO WEEKLY Patient Comments: takes on Mondays, weekly docusate sodium 100 mg capsule 100 mg PO BID ergocalciferol (vitamin D2) [Vitamin D2] 1,250 mcg (50,000 unit) capsule 1,250 mcg PO DAILY nystatin [Nyamyc] 100,000 unit/gram powder 1 applic TOPICAL QID PRN (Reason: erythematous condition) furosemide 20 mg tablet 40 mg PO BID Patient Comments: [id number] and [id number] cefdinir 300 mg capsule 300 mg PO Q12H Qty: 12 0RF hydrocodone-acetaminophen 5-325 mg tablet 1 tablet PO BID Qty: 9 0RF Patient Comments: chronic pain Date of admission: 03/09/25 14:14 Primary Care Provider: Marcial,Dejah Admitting Provider: Yamileth Santiago Attending physician on admission: Yamileth Santiago Condition: Serious
--- NOTE | 2025-03-15 15:05 | P.PNIM_ITS ---
Assessment and Plan Assessment and Plan (1) Dehydration: Code(s): E86.0 - Dehydration Status: Acute Assessment and Plan: Patient has had failure to thrive since he was discharged at the end of January from this facility. Per he has not been feeding himself or eating/drinking. Profoundly hypotensive upon initial assessment that has resolved with IV fluids. Patient still appears dry on exam. Maintenance fluids continued. BRIAN related to dehydration. --Stopped diuretics. No longer hypotensive --Calorie count, supervisor reactor fueling consult. Follow PO intake. --nutritional supplements --Spoke with dietitian today. Patient is severely malnourished and they are recommending PEG tube placement versus hospice. --Spoke with family today about these options and the is going to talk to patient's son about this. --I do know in the past hospice has been brought up to them and they have declined. They are also against tube placement as well. Recommended hospice consult. Continue to follow. (2) Delirium: Code(s): R41.0 - Disorientation, unspecified Status: Acute Assessment and Plan: Hx CVA Patient has had failure to thrive since the end of January, Was admitted with dehydration and diarrhea. Unclear Virtually not helping to feed himself, walk, or eating/drinking. Unresponsive and hypotensive. Has that significantly improved with IV fluids. However CT of the head showed remote bilateral basal ganglia in lacunar infarcts. No previous history of CVA. Reviewed previous head CT from March of 2023, no CVA noted at that time. Remote CVAs could be reason for general decline. Discussed goals of care with the patient's , care coordination consulted for discussions of hospice. Patient's mental status improving with fluids. Deferring further discussions until sodium corrected. 03/[address] showed 1.No acute intracranial abnormality. Noted remote basal ganglia lacunar infarcts. Prior CT 03/2023 no note of basal ganglia lacunar infarcts 03/10 Brain MRI 1. No acute ischemic event, mass or hemorrhage. No abnormal enhancing lesions or masses. 2. Moderately advanced chronic microvascular ischemic appearing changes and probable old bilateral basal ganglia lacunar infarctions. Patient's reports he was ambulating with a walker prior to admission 02/20- 02/25. Hasn't walked since the last admission. 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 Had an RI in 2021 and confusion after that hospitalization that eventually improved. Acute confusion recently is new in the setting of dehydration/BRIAN and recent GI symptoms. Also profoundly hypotensive prior to admission --Neurology consulted, follow recommendations. - PT/OT/ST - continue daily aspirin and atorvastatin, added Plavix --B12, TSH (3) Sepsis: Code(s): A41.9 - Sepsis, unspecified organism Status: Resolved Assessment and Plan: Met sirs criteria due to heart rate, blood pressure, respiratory rate. UA showed soft signs of infection, culture came back negative. Lactic initially 2.6 with repeat at 2.4 with IV fluids. -blood cultures obtained on 03/09, no growth -lactic elevated, improved with IV fluids. -started on ceftriaxone on 03/09, discontinued on 03/13/25 -monitor hemodynamic stability, does have cool extremities on exam however temp remains 97.5F and hypotension has resolved with IV fluids Met criteria likely due to dehydration. Resovled. (4) CVA (cerebral vascular accident): Qualifiers: CVA mechanism: unspecified Qualified Code(s): I63.9 - Cerebral infarction, unspecified Code(s): I63.9 - Cerebral infarction, unspecified Status: Acute Assessment and Plan: Patient has had failure to thrive since the end of January. Virtually not helping to feed himself, walk, or eating/drinking. Unresponsive today that significantly improved with IV fluids. However CT of the head showed remote bilateral basal ganglia in lacunar infarcts. No previous history of CVA. Reviewed previous head CT from March of 2023, no CVA noted at that time. Remote CVAs could be reason for general decline. Discussed goals of care with the patient's , care coordination consulted for discussions of hospice. Not willing to pursue at this evening and would like to see if he improves at all with fluids, however is open to discussing. mri completed 03/10: IMPRESSION: 1. No acute ischemic event, mass or hemorrhage. No abnormal enhancing lesions or masses. 2. Moderately advanced chronic microvascular ischemic appearing changes and probable old bilateral basal ganglia lacunar infarctions. -neurology following -asa, statin and plavix-continue (5) Acute kidney injury: Code(s): N17.9 - Acute kidney failure, unspecified Status: Acute Assessment and Plan: Previous history of BRIAN related to UTI/dehydration. Has reportedly not been eating or drinking since he was discharged at the end of January. Creatinine 2.21/BUN 56/GFR 29 upon admission. - monitor I&Os, 900ml out yesterday - BRIAN likely related to acute dehydration/poor p.o. intake related to confusion/delrium. Creatinine improving with fluids: 2.21>0.99 (6) Abnormal urinalysis: Code(s): R82.90 - Unspecified abnormal findings in urine Status: Acute Assessment and Plan: UA showed soft signs of infection. Review of systems unreliable due to alteration. However given presence of lactic acidosis and significance of vital sign abnormalities, will pursue broad-spectrum antibiotics. - UA: 2+ leuk esterase and 11-20 WBC - UC no growth - previous micro reviewed, Heena in 2022 otherwise no significant resistances - Ceftriaxone on 03/09-03/13 (7) Elevated troponin: Code(s): R79.89 - Other specified abnormal findings of blood chemistry Status: Resolved Assessment and Plan: Her mild elevation in troponin that is thus far been flat (0.052 -> 0.041). EKG when compared to previous from 02/20/2025 there are no significant changes beyond the heart rate increasing. Patient restless and unreliable historian, unclear if he has experienced any chest pain or symptoms concerning for ACS. - no evidence of acute RI - telemetry monitoring - no chest pain, stable (8) Hypertension: Qualifiers: Hypertension type: primary hypertension Qualified Code(s): I10 - Essential (primary) hypertension Code(s): I10 - Essential (primary) hypertension Status: Chronic Assessment and Plan: - chronic, currently 118/73. Profoundly hypotensive per EMS (60/23-78/50, HR 120's). Arrived 85/52. Has been 130-150's off medictions - Continue to hold home medications. --Consider restarting lower dose of entresto soon, furosemide prn instead of BID. Has been tolerating continuous IV fluids. Stop fluids when sodium normalized and monitor PO intake (9) Hyperthyroidism: Code(s): E05.90 - Thyrotoxicosis, unspecified without thyrotoxic crisis or storm Status: Chronic Assessment and Plan: - reviewed previous lab work, TSH reported to be 1.25 on 02/21/2025 - continue methimazole --Check TSH (10) Hypernatremia: Code(s): E87.0 - Hyperosmolality and hypernatremia Status: Acute Assessment and Plan: Sodium 160 on admission, improving with LR 160>151. Changed LR @100 to D5 1/2 @50, increased to 75/hr. Recheck labs this afternoon Strict I&O (only 50ml PO charted today) (11) History of CHF (congestive heart failure): Code(s): Z86.79 - Personal history of other diseases of the circulatory system Status: Acute Assessment and Plan: Hx RI several years ago. Patient required CPR. 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 TTE 03/2023 LVEF 30-35% TTE 03/13 unable to determine LVEF, poor windows --Holding lasix and entresto with BRIAN and dehydration (12) Severe malnutrition: Code(s): E43 - Unspecified severe protein-calorie malnutrition Status: Acute Assessment and Plan: Dietitian following. Discussed Hospice with the patient due to nutrition state. Plan Diet: Pureed with mildly thick liquids ([facility] [place] 03/12). Speech following. May be able to reassess and advance diet prior to discharge GI Prophylaxis: N/a DVT Prophylaxis: SCDs IV fluids: 2L -> 100 mL/hr, D51/2 @50<75/hr Lines/Tubes: pIV, romano Code Status: DNR Subjective Date/time seen: 03/15/25 15:05 Interval history: Patient continues to be confused. He can answer some questions but other times he can not be understood when he is talking. says that he was fine more than 9 days ago. Unsure if this is accurate information. He states he is not in any pain. Discussed with both the and the patient about hospice. Discussed that due to his severe malnutrition he will have to decide between getting a PEG tube versus going on hospice. I strongly recommended a hospice consult. Patient's said she will discuss with his son and they will make a decision. Encouraged that this needs to be decided within the next couple days. He has severe failure to thrive and next steps need to be discussed. Exam Narrative: GENERAL: Comfortable, no acute distress, Severe malnutrition. HENMT: moist mucous membranes RESPIRATORY: clear to auscultation, no increased respiratory effort CARDIO: Regular rate and rhythm GI: soft, nontender, bowel sounds present SKIN/EXTREMITIES: no rashes, no edema, no redness or tenderness Objective Data Vital Signs Vital Signs: Vital Signs - 24 hr 03/14/25 20:00 03/14/25 21:37 03/15/25 06:00 Temperature 97.5 F L 97.6 F Pulse Rate 95 98 Respiratory Rate 18 16 Blood Pressure 107/58 L 117/62 Pulse Oximetry 99 100 Oxygen Delivery Room Air 03/15/25 14:00 03/15/25 14:37 Temperature 97.4 F L Pulse Rate 90 Respiratory Rate 18 Blood Pressure 95/56 L 100/60 Pulse Oximetry 100 Oxygen Delivery Intake/Output Intake/Output: Intake & Output 03/12/25 03/13/25 03/14/25 03/15/25 23:59 23:59 23:59 23:59 Intake Total 1020 1200 2340 965 Output Total 1600 589 643 8009 Balance -520 125 6112 -335 Meds/Results Medications: Active Medications Generic Name Dose Route Start Last Admin Trade Name Freq PRN Reason Stop Dose Admin Acetaminophen 650 mg 03/10/25 08:49 03/14/25 05:54 Acetaminophen 325 Mg Tablet PO 650 mg Q6H PRN Administration Pain (Scale Score 1-3) Artificial Tears 1 drop 03/10/25 09:00 03/15/25 13:50 Artificial Tears Ophth Soln 15 Ml Bottle EACH EYE 1 drop TID MYA Administration Aspirin 81 mg 03/10/25 09:00 03/15/25 09:08 Aspirin 81 Mg Chewable Tablet PO 81 mg DAILY MYA Administration Atorvastatin Calcium 80 mg 03/10/25 21:00 03/14/25 20:29 Atorvastatin 40 Mg Tablet PO 80 mg HS MYA Administration Bisacodyl 5 mg 03/09/25 15:26 Bisacodyl 5 Mg Tablet Ec PO DAILY PRN Constipation Clopidogrel Bisulfate 75 mg 03/10/25 09:00 03/15/25 09:08 Clopidogrel Bisulfate 75 Mg Tablet PO 75 mg QAM MYA Administration Docusate Sodium 100 mg 03/10/25 09:00 03/15/25 09:13 Docusate Sodium 100 Mg Capsule PO Not Given BID MYA Ergocalciferol 1,250 mcg 03/15/25 09:00 03/15/25 13:52 Ergocalciferol (Vitamin D2) 1,250 Mcg (50,000 Units) Capsule PO Not Given Mo@0900 MYA Ferrous Sulfate 325 mg 03/10/25 09:00 03/15/25 09:13 Ferrous Sulfate 325 Mg Tablet PO 325 mg DAILY MYA Administration Finasteride 5 mg 03/10/25 09:00 03/15/25 09:08 Finasteride 5 Mg Tablet PO 5 mg DAILY MYA Administration Furosemide 40 mg 03/10/25 09:00 03/12/25 11:21 Furosemide 40 Mg Tablet PO Not Given On Hold: 03/12/25 09:08 BID MYA Guaifenesin 600 mg 03/10/25 08:36 Guaifenesin 12 Hr 600 Mg Tabcr PO BID PRN Congestion Dextrose/Sodium Chloride 1,000 mls @ 75 mls/hr 03/12/25 09:10 03/15/25 09:20 Dextrose 5% Sodium Chloride 0.45% IV CONT 75 mls/hr .[id number] MYA Administration Methimazole 5 mg 03/10/25 09:00 03/15/25 09:08 Methimazole 5 Mg Tab PO 5 mg DAILY MYA Administration Morphine Sulfate 2 mg 03/10/25 21:29 03/12/25 09:52 Morphine Sulfate (*Crx) 4 Mg/Ml Inj IV PUSH 2 mg Q4H PRN Administration Pain Rated 7-10 Olanzapine 7.5 mg 03/10/25 21:00 03/14/25 20:29 Olanzapine 2.5 Mg Tablet PO 7.5 mg HS MYA Administration Ondansetron HCl 4 mg 03/09/25 15:26 Ondansetron Inj 4 Mg/2 Ml Vial IV PUSH Q6H PRN Nausea And Vomiting Polyethylene Glycol 17 gm 03/10/25 08:36 03/13/25 20:26 Polyethylene Glycol 3350 17 Gm Powd.Pack PO 17 gm DAILY PRN Administration Constipation Potassium Chloride 20 meq 03/14/25 12:20 03/15/25 09:09 Potassium Chloride 20 Meq Packet (For Liquid) PO 20 meq DAILY MYA Administration Sertraline HCl 75 mg 03/10/25 09:00 03/15/25 09:09 Sertraline Hcl 25 Mg Tablet PO 75 mg DAILY MYA Administration Sucralfate 1 gm 03/10/25 11:30 03/15/25 11:51 Sucralfate 1 Gm Tablet PO 1 gm ACHS MYA Administration Tamsulosin HCl 0.4 mg 03/10/25 21:00 03/13/25 23:59 Tamsulosin Hcl 0.4 Mg Capsule PO Not Given On Hold: 03/14/25 02:51 HS MYA Comment: CANNOT BE CRUSHED W/ NO FORMULARY SUB IN LIQUID FORM. HOLD WHILE PT IS UNABLE TO SWALLOW Venlafaxine HCl 75 mg 03/10/25 08:55 03/15/25 09:09 Venlafaxine Hcl 75 Mg Tablet PO 75 mg BIDWM MYA Administration Radiology Results: ITS Impressions Chest X-Ray 03/09/25 12:47 IMPRESSION: 1. Mild left basilar discoid atelectasis with mild elevation of the left hemidiaphragm. Head CT 03/09/25 13:36 Impression: 1.No acute intracranial abnormality. Abdomen/Pelvis CT 03/09/25 13:45 IMPRESSION: Directed noncontrast exam demonstrating no focal acute process to explain source of patient's symptoms. See other comments above. Brain MRI 03/10/25 12:50 IMPRESSION: 1. No acute ischemic event, mass or hemorrhage. No abnormal enhancing lesions or masses. 2. Moderately advanced chronic microvascular ischemic appearing changes and probable old bilateral basal ganglia lacunar infarctions. Modified Barium Swallow 03/12/25 15:04 IMPRESSION: No aspiration observed on this limited study. See speech therapist's note for complete evaluation. Labs Labs: Laboratory Results - last 24 hr 03/15/25 05:24 WBC 8.4 RBC 4.08 L Hgb 13.6 L Hct 41.1 L MCV 100.7 H MCH 33.3 D MCHC 33.1 RDW 17.4 H Plt Count 132 L MPV 11.1 H % Immature Plt Fraction 4.5 Sodium 144 Potassium 3.4 Chloride 118 H Carbon Dioxide 22 Anion Gap 4 BUN 9 Creatinine 0.77 Estim Creat Clear Calc 70 Estimated GFR > 60 Glucose 107 Calcium 8.5 Magnesium 2.4 H
[2025-03-15] MEDS: ATORVASTATIN 40 MG TABLET 80 MG PO (21:56)
[2025-03-15 22:00] VITALS: BP 101/70; PULSE 98; RESP 18; TEMP 36.6; O2SAT 96
[2025-03-16] MEDS: DEXTROSE 5%/0.45% SOD CHL 1,000 ML 75 ML IV CONT ×2 (04:14→20:36)
[2025-03-16 05:49] VITALS: BP 110/58; PULSE 63; RESP 16; TEMP 36.8; O2SAT 97
[2025-03-16 06:07] LABS: Hematocrit 38.0 % (42.0-52.0); Hemoglobin 12.5 g/dL (14.0-18.0); Immature Platelet Fraction Pct 4.7 % (0.9-11.2); Mean Corpuscular HGB Conc 32.9 g/dl (32-36); Mean Corpuscular Hemoglobin 32.6 pg (26-34); Mean Corpuscular Volume 99.0 fl (80-100); Platelet Count Result 125 k/mm3 (150-375); Red Blood Count 3.84 M/mm3 (4.6-6.20); White Blood Count 8.0 K/mm3 (4.5-10.0)
[2025-03-16 06:35] LABS: Anion Gap 2 mmol/L (4-12); Blood Urea Nitrogen 9 mg/dL (9-20); Calcium 8.2 mg/dL (8.4-10.2); Carbon Dioxide 25 mmol/L (22-30); Chloride 114 mmol/L (98-107); Estimated CRCL calculation 70 ml/min; Estimated Glomerular Filt Rate > 60; Glucose 105 mg/dL (65-110); Magnesium 2.2 mg/dL (1.6-2.3); Potassium 3.0 mmol/L (3.4-5.0); Sodium 141 mmol/L (137-145)
[2025-03-16] MEDS: SUCRALFATE 1 GM TABLET PO ×4 (06:37→20:35)
[2025-03-16] MEDS: POTASSIUM CHLORIDE 20 MEQ PACKET (FOR LIQUID) PO (09:27)
[2025-03-16] MEDS: ASPIRIN 81 MG CHEWABLE TABLET PO (09:29)
[2025-03-16] MEDS: VENLAFAXINE HCL 75 MG TABLET PO ×2 (09:30→16:08)
[2025-03-16] MEDS: SERTRALINE HCL 25 MG TABLET 75 MG PO (09:31)
[2025-03-16] MEDS: CLOPIDOGREL BISULFATE 75 MG TABLET PO (09:31)
[2025-03-16] MEDS: FINASTERIDE 5 MG TABLET PO (09:31)
[2025-03-16] MEDS: FERROUS SULFATE 325 MG TABLET PO (09:32)
[2025-03-16] MEDS: ARTIFICIAL TEARS OPHTH SOLN 15 ML BOTTLE 1 DROP EACH EYE ×2 (09:37→16:07)
[2025-03-16] MEDS: POTASSIUM CHLORIDE 20 MEQ PACKET (FOR LIQUID) 40 MEQ PO (11:23)
--- NOTE | 2025-03-16 13:32 | PM.IMPN2 ---
Assessment and Plan Assessment and Plan (1) Dehydration: Code(s): E86.0 - Dehydration Status: Acute (2) Delirium: Code(s): R41.0 - Disorientation, unspecified Status: Acute (3) Sepsis: Code(s): A41.9 - Sepsis, unspecified organism Status: Resolved (4) CVA (cerebral vascular accident): Qualifiers: CVA mechanism: unspecified Qualified Code(s): I63.9 - Cerebral infarction, unspecified Code(s): I63.9 - Cerebral infarction, unspecified Status: Acute (5) Acute kidney injury: Code(s): N17.9 - Acute kidney failure, unspecified Status: Acute (6) Abnormal urinalysis: Code(s): R82.90 - Unspecified abnormal findings in urine Status: Acute (7) Elevated troponin: Code(s): R79.89 - Other specified abnormal findings of blood chemistry Status: Resolved (8) Hypertension: Qualifiers: Hypertension type: primary hypertension Qualified Code(s): I10 - Essential (primary) hypertension Code(s): I10 - Essential (primary) hypertension Status: Chronic (9) Hyperthyroidism: Code(s): E05.90 - Thyrotoxicosis, unspecified without thyrotoxic crisis or storm Status: Chronic (10) Hypernatremia: Code(s): E87.0 - Hyperosmolality and hypernatremia Status: Acute (11) History of CHF (congestive heart failure): Code(s): Z86.79 - Personal history of other diseases of the circulatory system Status: Acute (12) Severe malnutrition: Code(s): E43 - Unspecified severe protein-calorie malnutrition Status: Acute Plan 75 y/o M with PMH of chronic anemia, CAD, DVT, dementia, depression, HTN, GERD, peripheral artery disease, PE, TIA, diabetes diet controlled, and venous stasis dermatitis presents here with altered mental status.Last admission from 02/20-02/25 and was treated for diarrhea, worsening confusion, and a UTI. CXR showed mild left basilar discoid atelectasis with mild elevation of the left hemidiaphragm. Head CT showed no acute intracranial abnormality. CT of the abdomen/pelvis showed no focal process to explain patient's symptoms. (1) Dehydration: Patient has had failure to thrive since he was discharged at the end of January from this facility. Per he has not been feeding himself or eating/drinking. Profoundly hypotensive upon initial assessment that has resolved with IV fluids. 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 operator apprentice consult appreciated --nutritional supplements Patient is severely malnourished Edge Drummer recommends either PEG tube versus hospice is going to talk to patient's son about it Hospice was brought up in the past and was declined, was also against PEG tube placement (2) Delirium: Hx CVA Head CT on admission was unremarkable for any acute issues MRI brain with no acute ischemic event, mass, hemorrhage, moderately advanced chronic microvascular ischemic appearing changes Neurology was consulted Continue with aspirin, statin, Plavix PT/OT/ST (3) Sepsis: Resolved Urine culture turned out to be negative Treated with ceftriaxone from 03/09/2025-03/13/2025 (4) Acute kidney injury: Resolved (5) Elevated troponin: - no evidence of acute DC - telemetry monitoring - no chest pain, stable (6) Hyperthyroidism: Continue with methimazole (7) Hypernatremia: Resolved (8) Severe malnutrition: Appreciate Nutrition consult Ongoing discussion with goals of care 9. DVT prophylaxis: SCDs 10. Code status: DNR 11. Disposition: Pending improvement Time Spent With Patient Time with patient: 25 - 35 minutes Subjective Date/time seen: 03/16/25 13:32 Interval history: No acute events overnight Review of Systems Review of Systems: pt is alert but oriented to self Exam Narrative: GENERAL: Comfortable, no acute distress, Severe malnutrition. HENMT: moist mucous membranes RESPIRATORY: clear to auscultation, no increased respiratory effort CARDIO: Regular rate and rhythm GI: soft, nontender, bowel sounds present SKIN/EXTREMITIES: no rashes, no edema, no redness or tenderness Objective Data Vital Signs Vital Signs: Vital Signs - 24 hr 03/15/25 14:00 03/15/25 14:37 03/15/25 20:00 Temperature 97.4 F L Pulse Rate 90 Respiratory Rate 18 Blood Pressure 95/56 L 100/60 Pulse Oximetry 100 Oxygen Delivery Room Air 03/15/25 22:00 03/16/25 05:49 Temperature 97.9 F 98.2 F Pulse Rate 98 63 Respiratory Rate 18 16 Blood Pressure 101/70 110/58 L Pulse Oximetry 96 97 Oxygen Delivery Intake/Output Intake/Output: Intake & Output 03/13/25 03/14/25 03/15/25 03/16/25 23:59 23:59 23:59 23:59 Intake Total 1200 2340 1965 0 Output Total 464 270 2167 200 Balance 700 1390 -135 -200 Meds/Results Medications: Active Medications Generic Name Dose Route Start Last Admin Trade Name Freq PRN Reason Stop Dose Admin Acetaminophen 650 mg 03/10/25 08:49 03/14/25 05:54 Acetaminophen 325 Mg Tablet PO 650 mg Q6H PRN Administration Pain (Scale Score 1-3) Artificial Tears 1 drop 03/10/25 09:00 03/16/25 11:28 Artificial Tears Ophth Soln 15 Ml Bottle EACH EYE Not Given TID MYA Aspirin 81 mg 03/10/25 09:00 03/16/25 09:29 Aspirin 81 Mg Chewable Tablet PO 81 mg DAILY MYA Administration Atorvastatin Calcium 80 mg 03/10/25 21:00 03/15/25 21:56 Atorvastatin 40 Mg Tablet PO 80 mg HS MYA Administration Bisacodyl 5 mg 03/09/25 15:26 Bisacodyl 5 Mg Tablet Ec PO DAILY PRN Constipation Clopidogrel Bisulfate 75 mg 03/10/25 09:00 03/16/25 09:31 Clopidogrel Bisulfate 75 Mg Tablet PO 75 mg QAM MYA Administration Docusate Sodium 100 mg 03/10/25 09:00 03/16/25 09:36 Docusate Sodium 100 Mg Capsule PO Not Given BID MYA Ergocalciferol 1,250 mcg 03/15/25 09:00 03/15/25 13:52 Ergocalciferol (Vitamin D2) 1,250 Mcg (50,000 Units) Capsule PO Not Given Mo@0900 MYA Ferrous Sulfate 325 mg 03/10/25 09:00 03/16/25 09:32 Ferrous Sulfate 325 Mg Tablet PO 325 mg DAILY MYA Administration Finasteride 5 mg 03/10/25 09:00 03/16/25 09:31 Finasteride 5 Mg Tablet PO 5 mg DAILY MYA Administration Furosemide 40 mg 03/10/25 09:00 03/12/25 11:21 Furosemide 40 Mg Tablet PO Not Given On Hold: 03/12/25 09:08 BID MYA Guaifenesin 600 mg 03/10/25 08:36 Guaifenesin 12 Hr 600 Mg Tabcr PO BID PRN Congestion Dextrose/Sodium Chloride 1,000 mls @ 75 mls/hr 03/12/25 09:10 03/16/25 04:14 Dextrose 5% Sodium Chloride 0.45% IV CONT 75 mls/hr .[id number] MYA Administration Methimazole 5 mg 03/10/25 09:00 03/16/25 09:32 Methimazole 5 Mg Tab PO 5 mg DAILY MYA Administration Morphine Sulfate 2 mg 03/10/25 21:29 03/12/25 09:52 Morphine Sulfate (*Crx) 4 Mg/Ml Inj IV PUSH 2 mg Q4H PRN Administration Pain Rated 7-10 Olanzapine 7.5 mg 03/10/25 21:00 03/15/25 21:55 Olanzapine 2.5 Mg Tablet PO 7.5 mg HS MYA Administration Ondansetron HCl 4 mg 03/09/25 15:26 Ondansetron Inj 4 Mg/2 Ml Vial IV PUSH Q6H PRN Nausea And Vomiting Polyethylene Glycol 17 gm 03/10/25 08:36 03/13/25 20:26 Polyethylene Glycol 3350 17 Gm Powd.Pack PO 17 gm DAILY PRN Administration Constipation Potassium Chloride 20 meq 03/14/25 12:20 03/16/25 09:27 Potassium Chloride 20 Meq Packet (For Liquid) PO 20 meq DAILY MYA Administration Sertraline HCl 75 mg 03/10/25 09:00 03/16/25 09:31 Sertraline Hcl 25 Mg Tablet PO 75 mg DAILY MYA Administration Sucralfate 1 gm 03/10/25 11:30 03/16/25 11:25 Sucralfate 1 Gm Tablet PO 1 gm ACHS MYA Administration Tamsulosin HCl 0.4 mg 03/10/25 21:00 03/13/25 23:59 Tamsulosin Hcl 0.4 Mg Capsule PO Not Given On Hold: 03/14/25 02:51 HS MYA Comment: CANNOT BE CRUSHED W/ NO FORMULARY SUB IN LIQUID FORM. HOLD WHILE PT IS UNABLE TO SWALLOW Venlafaxine HCl 75 mg 03/10/25 08:55 03/16/25 09:30 Venlafaxine Hcl 75 Mg Tablet PO 75 mg BIDWM MYA Administration Radiology Results: ITS Impressions Chest X-Ray 03/09/25 12:47 IMPRESSION: 1. Mild left basilar discoid atelectasis with mild elevation of the left hemidiaphragm. Head CT 03/09/25 13:36 Impression: 1.No acute intracranial abnormality. Abdomen/Pelvis CT 03/09/25 13:45 IMPRESSION: Directed noncontrast exam demonstrating no focal acute process to explain source of patient's symptoms. See other comments above. Brain MRI 03/10/25 12:50 IMPRESSION: 1. No acute ischemic event, mass or hemorrhage. No abnormal enhancing lesions or masses. 2. Moderately advanced chronic microvascular ischemic appearing changes and probable old bilateral basal ganglia lacunar infarctions. Modified Barium Swallow 03/12/25 15:04 IMPRESSION: No aspiration observed on this limited study. See speech therapist's note for complete evaluation. Labs Labs: Laboratory Results - last 24 hr 03/16/25 05:29 WBC 8.0 RBC 3.84 L Hgb 12.5 L Hct 38.0 L MCV 99.0 MCH 32.6 MCHC 32.9 RDW 16.5 H Plt Count 125 L MPV 11.4 H % Immature Plt Fraction 4.7 Sodium 141 Potassium 3.0 L Chloride 114 H Carbon Dioxide 25 Anion Gap 2 L BUN 9 Creatinine 0.77 Estim Creat Clear Calc 70 Estimated GFR > 60 Glucose 105 Calcium 8.2 L Magnesium 2.2 Quality VTE Prophylaxis VTE prophylaxis: mechanical ordered
[2025-03-16 14:00] VITALS: BP 110/68; PULSE 77; RESP 18; TEMP 36.2; O2SAT 97
[2025-03-16] MEDS: ATORVASTATIN 40 MG TABLET 80 MG PO (20:34)
[2025-03-16 21:37] VITALS: BP 108/51; PULSE 82; RESP 18; TEMP 36.7; O2SAT 96
--- NOTE | 2025-03-16 23:16 | PC.NURSE ---
[id number] Antique Jewelry Repairer Dinora Bee notified that res has not urinated since romano catheter had been removed. Antique Jewelry Repairer gave order to bladder scan and straight cath if urine is greater than 300.
[2025-03-17 06:00] VITALS: BP 147/68; PULSE 72; RESP 18; TEMP 36.5; O2SAT 99
[2025-03-17] MEDS: SUCRALFATE 1 GM TABLET PO ×4 (06:09→20:21)
[2025-03-17 06:29] LABS: Hematocrit 45.2 % (42.0-52.0); Hemoglobin 14.8 g/dL (14.0-18.0); Immature Platelet Fraction Pct 5.3 % (0.9-11.2); Mean Corpuscular HGB Conc 32.7 g/dl (32-36); Mean Corpuscular Hemoglobin 32.3 pg (26-34); Mean Corpuscular Volume 98.7 fl (80-100); Platelet Count Result 141 k/mm3 (150-375); Red Blood Count 4.58 M/mm3 (4.6-6.20); White Blood Count 8.7 K/mm3 (4.5-10.0)
[2025-03-17 06:51] LABS: Anion Gap 9 mmol/L (4-12); Blood Urea Nitrogen 8 mg/dL (9-20); Calcium 8.7 mg/dL (8.4-10.2); Carbon Dioxide 21 mmol/L (22-30); Chloride 113 mmol/L (98-107); Estimated CRCL calculation 70 ml/min; Estimated Glomerular Filt Rate > 60; Glucose 100 mg/dL (65-110); Magnesium 2.0 mg/dL (1.6-2.3); Potassium 3.3 mmol/L (3.4-5.0); Sodium 143 mmol/L (137-145)
[2025-03-17] MEDS: POTASSIUM CHLORIDE 20 MEQ PACKET (FOR LIQUID) PO (08:42)
[2025-03-17] MEDS: FERROUS SULFATE 325 MG TABLET PO (08:43)
[2025-03-17] MEDS: VENLAFAXINE HCL 75 MG TABLET PO ×2 (08:43→16:28)
[2025-03-17] MEDS: FINASTERIDE 5 MG TABLET PO (08:44)
[2025-03-17] MEDS: ASPIRIN 81 MG CHEWABLE TABLET PO (08:44)
[2025-03-17] MEDS: SERTRALINE HCL 25 MG TABLET 75 MG PO (08:44)
[2025-03-17] MEDS: CLOPIDOGREL BISULFATE 75 MG TABLET PO (08:44)
[2025-03-17] MEDS: ARTIFICIAL TEARS OPHTH SOLN 15 ML BOTTLE 1 DROP EACH EYE ×2 (08:53→16:28)
[2025-03-17] MEDS: DEXTROSE 5%/0.45% SOD CHL 1,000 ML 75 ML IV CONT (10:43)
[2025-03-17 14:00] VITALS: BP 105/55; PULSE 105; RESP 20; TEMP 36.2; O2SAT 99
--- NOTE | 2025-03-17 14:58 | P.DS_ITS ---
DS: Admitting Diagnosis Discharge Date 03/17/2025 Admitting Diagnosis Sepsis, CVA, BRIAN DS: Discharge Diagnosis Discharge Diagnosis (1) Dehydration: Code(s): E86.0 - Dehydration Status: Acute (2) Delirium: Code(s): R41.0 - Disorientation, unspecified Status: Acute (3) Sepsis: Code(s): A41.9 - Sepsis, unspecified organism Status: Resolved (4) CVA (cerebral vascular accident): Qualifiers: CVA mechanism: unspecified Qualified Code(s): I63.9 - Cerebral infar ction, unspecified Code(s): I63.9 - Cerebral infarction, unspecified Status: Acute (5) Acute kidney injury: Code(s): N17.9 - Acute kidney failure, unspecified Status: Acute (6) Abnormal urinalysis: Code(s): R82.90 - Unspecified abnormal findings in urine Status: Acute (7) Elevated troponin: Code(s): R79.89 - Other specified abnormal findings of blood chemistry Status: Resolved (8) Hypertension: Qualifiers: Hypertension type: primary hypertension Qualified Code(s): I10 - Essential (primary) hypertension Code(s): I10 - Essential (primary) hypertension Status: Chronic (9) Hyperthyroidism: Code(s): E05.90 - Thyrotoxicosis, unspecified without thyrotoxic crisis or storm Status: Chronic (10) Hypernatremia: Code(s): E87.0 - Hyperosmolality and hypernatremia Status: Acute (11) History of CHF (congestive heart failure): Code(s): Z86.79 - Personal history of other diseases of the circulatory system Status: Acute (12) Severe malnutrition: Code(s): E43 - Unspecified severe protein-calorie malnutrition Status: Acute DS: Summary Hospital Course Reason for hospitalization: ams Hospital Course: The patient is a 75-year-old male with an extensive medical history including dementia, CAD with prior PCI, prior PE/DVT, TIA, hypertension, hyperthyroidism, chronic anemia, and diet-controlled diabetes who [facility] with altered mental status, generalized weakness, and profound hypotension. On arrival, he met SIRS criteria with hypotension, tachycardia, tachypnea, leukocytosis, lactic acidosis, severe hypernatremia, and acute kidney injury in the setting of poor oral intake and failure to thrive since a recent hospitalization for UTI. Initial workup demonstrated sodium 160, creatinine 2.21, BUN 56, WBC 16.7, and mildly elevated troponin without ischemic EKG changes. CT head, CT abdomen/pelvis, and chest X?ray showed no acute process. He was treated with aggressive IV fluids with rapid improvement in blood pressure, renal function, and mental status, and was empirically started on ceftriaxone for suspected urinary source; blood and urine cultures ultimately remained negative, and antibiotics were completed with resolution of sepsis physiology. Neurologic evaluation included MRI brain, which showed no acute infarct but did demonstrate moderately advanced chronic microvascular ischemic changes and probable old bilateral basal ganglia lacunar infarcts, felt to contribute to his chronic cognitive decline and delirium. Neurology was consulted, and he was continued on aspirin and high intensity statin therapy, with clopidogrel added. BRIAN, hypernatremia, lactic acidosis, and hypotension resolved with volume resuscitation. Mild troponin elevation was felt to represent demand ischemia and trended down without evidence of acute coronary syndrome; telemetry remained stable. Transthoracic echocardiogram was technically difficult but showed preserved systolic function and grade I diastolic dysfunction without significant valvular disease. During hospitalization, the patient was noted to have severe protein calorie malnutrition and ongoing failure to thrive. Nutrition and speech therapy were consulted; modified barium swallow showed no aspiration. Despite supportive care and nutritional supplementation, oral intake remained poor. Goals of care discussions were held extensively with the patient?s regarding prognosis, with hospice versus feeding tube placement discussed; the family declined PEG placement and continued to consider hospice. By mid hospitalization, the patient was hemodynamically stable, off antibiotics, with resolved BRIAN and hypernatremia. Code status was changed to DNR, and disposition planning focused on ongoing supportive care and goals of care?directed management. Discussed with the patient and his regarding the possibility of PEG tube versus hospice. Both the patient and his denies wanting either at this point and would prefer to be discharged back to his facility, stating that they may decide hospice at a later date. Pt is otherwise hemodynamically stable at this point and can be discharged back to [facility] at this time. Patient and are both in agreement with this plan. Time Spent with Patient Time attestation: Total time spent providing and/or coordinating discharge services: 30 Exam Narrative: GENERAL: Comfortable, no acute distress, Severe malnutrition. HENMT: moist mucous membranes RESPIRATORY: clear to auscultation, no increased respiratory effort CARDIO: Regular rate and rhythm GI: soft, nontender, bowel sounds present SKIN/EXTREMITIES: no rashes, no edema, no redness or tenderness Const: Other: , male, elderly, ill-appearing, restless HENMT: Face/Nose/Sinus: Normal nares present Mouth: Yes dry mucous membranes Eyes: General: appearance normal, both eyes and all related structures Sclera: sclerae normal Pupils: Equal, round and reactive pupils present EOM: EOMs intact bilaterally Resp: Effort & Inspection: normal respiratory effort Auscultation: clear to auscultation bilaterally Cardio: Rate: regular rate Rhythm: regular rhythm Other: S1-S2 present without murmur, rub, ectopy GI: Other: Abdomen soft, nondistended, nontender. Normoactive bowel sounds in all quadrants. Skin: General skin exam: normal color and no rashes or lesions noted Other: Small area of erythema to the coccyx region. Abrasion overlying. Neuro: Cranial nerves: Yes Equal, round and reactive pupils present Other: Patient is alert to self only. Moving all extremities. Difficulty following commands, restless, moaning. Difficult exam. No gaze deviation appreciated. Extrem: Other: Cool extremities. Psych: Other: Poor insight and judgment, restless. DS: Data Data Completed and Pending Labs on day of discharge: Labs from last 24 hours 03/17/25 05:58 WBC 8.7 RBC 4.58 L Hgb 14.8 Hct 45.2 MCV 98.7 MCH 32.3 MCHC 32.7 RDW 17.0 H Plt Count 141 L MPV 11.5 H % Immature Plt Fraction 5.3 Sodium 143 Potassium 3.3 L Chloride 113 H Carbon Dioxide 21 L Anion Gap 9 BUN 8 L Creatinine 0.77 Estim Creat Clear Calc 70 Estimated GFR > 60 Glucose 100 Calcium 8.7 Magnesium 2.0 Discharge Plan Discharge Attending physician on discharge: Minh Patel Consulting providers: Lito Yun; Jenna Mojica; Reynaldo Owens Discharging Clinician: Reynaldo Owens Anticipated Discharge Date/Time: 03/17/25 14:50 Patient Disposition: NH Skilled Nursing/Asst Living Activity: as tolerated Diet: regular Discharge Instructions: * Condition at Discharge:?Hemodynamically stable with resolved dehydration, kidney injury, hypernatremia, and sepsis; ongoing dementia, delirium, and severe malnutrition with limited functional status. * Activity:?As tolerated; requires assistance with transfers and ambulation. Follow PT/OT recommendations at receiving facility. * Diet/Nutrition:?Soft or regular diet as tolerated per speech therapy; encourage small, frequent meals and nutritional supplements. Monitor intake closely due to severe malnutrition. * Medications:?Take medications as reconciled on discharge. Continue aspirin, atorvastatin, clopidogrel(new), methimazole, and other chronic medications as directed. Hold or adjust medications per discharge medication list. * Hydration:?Encourage adequate oral fluids daily; monitor for signs of dehydration including decreased intake, low urine output, or worsening confusion. * Follow?Up Appointments: * Primary care provider within 1?2 weeks * Neurology as scheduled for dementia/CVA follow?up * Nutrition services as available at facility * Monitoring at Facility/Home: * Monitor mental status, oral intake, weight, and urine output * Monitor blood pressure and labs as clinically indicated (BMP, electrolytes) * When to Seek Medical Attention: * Worsening confusion or unresponsiveness * Fever, chills, or signs of infection * Poor oral intake for >24 hours * Low urine output, dizziness, or recurrent hypotension * Chest pain or shortness of breath * Disposition:?Discharge to [facility] with continued supportive care and close monitoring. Patient Instructions: Antibiotic Form Patient Language: Zambian Stand Alone Forms: General Discharge Information Follow-up/Referrals: Patricia,Nury Pond [Primary Care Provider] Discharge Medications: New clopidogrel 75 mg Tablet 75 mg PO QAM Qty: 30 0RF Continued ferrous sulfate 325 mg (65 mg iron) Tablet,Delayed Release (Dr/Ec) 325 mg PO DAILY Qty: 90 1RF sacubitril-valsartan [Entresto] 24-26 mg Tablet 1 tablet PO Q12HR Qty: 60 5RF potassium chloride 20 mEq tablet,ER particles/crystals 20 meq PO DAILY finasteride 5 mg tablet 5 mg PO DAILY tamsulosin 0.4 mg Capsule 0.4 mg PO HS atorvastatin 80 mg Tablet 80 mg PO HS aspirin 81 mg Tablet,Chewable 81 mg PO DAILY polyethylene glycol 3350 17 gram/dose Powder 17 g PO DAILY PRN (Reason: Constipation) venlafaxine 75 mg Tablet 75 mg PO BID Rx Instructions: before breakfast and dinner Refresh Classic (PF) 1.4-0.6 % Dropperette 1 drp EACH EYE TID sucralfate 1 gram tablet 1 g PO ACHS olanzapine 2.5 mg tablet 7.5 mg PO HS methimazole 5 mg tablet 5 mg PO DAILY Qty: 30 0RF sertraline 50 mg tablet 75 mg PO DAILY guaifenesin [Mucinex] 600 mg tablet extended release 12hr 600 mg PO BID PRN (Reason: congestion) cholecalciferol (vitamin D3) [Decara] 1,250 mcg (50,000 unit) capsule 1,250 mcg PO WEEKLY Patient Comments: takes on Mondays, weekly docusate sodium 100 mg capsule 100 mg PO BID ergocalciferol (vitamin D2) [Vitamin D2] 1,250 mcg (50,000 unit) capsule 1,250 mcg PO DAILY nystatin [Nyamyc] 100,000 unit/gram powder 1 applic TOPICAL QID PRN (Reason: erythematous condition) furosemide 20 mg tablet 40 mg PO BID Patient Comments: [id number] and [id number] cefdinir 300 mg capsule 300 mg PO Q12H Qty: 12 0RF hydrocodone-acetaminophen 5-325 mg tablet 1 tablet PO BID Qty: 9 0RF Patient Comments: chronic pain Discontinued acetaminophen 325 mg Tablet,Chewable 650 mg PO Q6H PRN (Reason: Pain (Scale Score 1-3)) Date of admission: 03/09/25 14:14 Primary Care Provider: Marcial,Dejah Admitting Provider: Yamileth Santiago Attending physician on admission: Yamileth Santiago Condition: Stable Quality VTE Prophylaxis VTE prophylaxis: mechanical ordered
[2025-03-17 16:46] LABS: SARS-CoV-2 RNA PCR Negative (Negative)
[2025-03-17] MEDS: ATORVASTATIN 40 MG TABLET 80 MG PO (20:22)
== END 2025-03-17 22:25 | DRG 871 ==
LOC: ANHED 12:21 → ANHIMU 15:28 → ANH3MEDSUR 03-11 22:38
PROVIDERS: Family Medicine; Nurse Practitioner Acute Care; Student in an Organized Health Care Education/Training Program; Admitting Provider Internal Medicine; Emergency Provider Emergency Medicine; PCP Internal Medicine; Visit Provider Physician Assistant
DX: A41.9 Sepsis, unspecified organism (principal); E43 Unspecified severe protein-calorie malnutrition; N17.9 Acute kidney failure, unspecified; E87.0 Hyperosmolality and hypernatremia; F03.93 Unspecified dementia, unspecified severity, with mood disturbance; I25.10 Atherosclerotic heart disease of native coronary artery without angina pectoris; I10 Essential (primary) hypertension; I87.2 Venous insufficiency (chronic) (peripheral); E86.0 Dehydration; E11.40 Type 2 diabetes mellitus with diabetic neuropathy, unspecified; E11.51 Type 2 diabetes mellitus with diabetic peripheral angiopathy without gangrene; E05.90 Thyrotoxicosis, unspecified without thyrotoxic crisis or storm; E78.5 Hyperlipidemia, unspecified; K21.9 Gastro-esophageal reflux disease without esophagitis; N40.0 Benign prostatic hyperplasia without lower urinary tract symptoms; R79.89 Other specified abnormal findings of blood chemistry; Z20.822 Contact with and (suspected) exposure to COVID-19; I25.2 Old myocardial infarction; Z11.52 Encounter for screening for COVID-19; Z79.82 Long term (current) use of aspirin; Z86.711 Personal history of pulmonary embolism; Z86.73 Personal history of transient ischemic attack (TIA), and cerebral infarction without residual deficits; Z86.718 Personal history of other venous thrombosis and embolism; Z95.5 Presence of coronary angioplasty implant and graft; Z68.29 Body mass index [BMI] 29.0-29.9, adult
CPT/HCPCS: 36415; 36600; 70450; 70553; 71045; 74176; 74230; 80048; 80053; 81001; 82550; 82570; 82607; 82805; 82948; 83605; 83690; 83735; 84100; 84145; 84156; 84300; 84443; 84484; 84540; 85018; 85025; 85027; 85055; 85610; 85730; 86140; 87040; 87086; 87635; 87637; 92526; 92610; 92611; 93005; 96360; 97110; 97162; 97165; 97530; 97535; 99285; A9270; A9577; C8929; J0696; J1938; J2270; J3480; J7040; J7120; Q9957